=== PATIENT | male | born 1945 | race Caucasian/White ===

== ENCOUNTER → 2023-02-21 18:06 | Outpatient (CLI) | payer MEDICARE, SELFPAY ==
[2023-02-21 18:42] LABS: Basophils % 0.4 % (0.1-2.0); Eosinophils # 0.1 K/mm3 (0.0-0.4); Eosinophils % 1.8 % (0.1-12.0); Hematocrit 47.3 % (42.0-52.0); Hemoglobin 17.2 g/dL (14.1-18.0); Lymphocytes # 1.5 K/mm3 (0.7-4.5); Lymphocytes % 24.1 % (10-50); Mean Corpuscular HGB Conc 36.4 g/dL (31.8-35.4); Mean Corpuscular Hemoglobin 33.2 pg (27.0-31.2); Mean Corpuscular Volume 91.1 fl (80-94); Mean Platelet Volume 10.4 fl (7.4-10.4); Monocytes # 0.4 K/mm3 (0.1-1.0); Monocytes % 6.8 % (1.7-9.3); Neutrophils # 4.3 K/mm3 (1.8-7.8); Neutrophils % 66.8 % (37.0-80.0); Platelet Count 187 K/mm3 (142-424); Red Blood Count 5.19 M/mm3 (4.60-6.20); Red Cell Distribution Width 14.2 % (11.5-17.5); White Blood Count 6.4 K/mm3 (4.8-10.8)
[2023-02-21 19:15] LABS: Alanine Aminotransferase 35 U/L (12-78); Albumin Level 4.3 g/dl (3.5-5.0); Albumin/Globulin Ratio 1.5 (1.1-1.8); Alkaline Phosphatase 133 U/L (38-126); Anion Gap 10.1 mEq/L (5-15); Aspartate Amino Transferase 39 U/L (17-59); Blood Urea Nitrogen 23 mg/dl (9-20); Calcium 8.9 mg/dl (8.4-10.2); Carbon Dioxide 25 mmol/L (22.0-30.0); Chloride 108 mmol/L (98-107); Chol/HDL Ratio 4.6 (1-3.5); Cholesterol 167 mg/dl (140-200); Estimated Glomerular Filt Rate 46 ml/min (>60); GFR (African American) 55 ML/MIN (>60); Globulin 2.9 g/dL (1.3-3.2); Glucose 109 mg/dl (74-100); HDL Cholesterol 36 mg/dl (40-60); Potassium 4.1 mmoL/L (3.5-5.1); Sodium 139 mmol/L (136-145); Total Protein,Serum 7.2 g/dl (6.3-8.2); Triglycerides 133 mg/dl (30-150); VLDL Cholesterol 27 mg/dL (0-40)
[2023-02-21 19:24] LABS: NT Pro Brain Natriuretic Pep. 542 pg/mL (0-450)
[2023-02-21 19:27] LABS: Direct LDL Cholesterol 114.23 mg/dL (100-129)
== END ==
PROVIDERS: PCP Nurse Practitioner Family; Visit Provider Nurse Practitioner Family
DX: E78.5 Hyperlipidemia, unspecified (principal); R06.02 Shortness of breath
CPT/HCPCS: 80053; 80061; 83880; 85025

== ENCOUNTER → 2023-04-24 16:55 | Outpatient (CLI) | payer MEDICARE, SELFPAY ==
[2023-04-24 16:36] LABS: Anion Gap 16.8 mEq/L (5-15); Blood Urea Nitrogen 33 mg/dl (9-20); Calcium 9.2 mg/dl (8.4-10.2); Carbon Dioxide 25 mmol/L (22.0-30.0); Chloride 106 mmol/L (98-107); Chol/HDL Ratio 4.2 (1-3.5); Cholesterol 142 mg/dl (140-200); Estimated Glomerular Filt Rate 46 ml/min (>60); GFR (African American) 55 ML/MIN (>60); Glucose 118 mg/dl (74-100); HDL Cholesterol 34 mg/dl (40-60); Potassium 4.8 mmoL/L (3.5-5.1); Sodium 143 mmol/L (136-145); Triglycerides 177 mg/dl (30-150); VLDL Cholesterol 35 mg/dL (0-40)
[2023-04-24 16:46] LABS: Direct LDL Cholesterol 80.59 mg/dL (100-129)
== END ==
PROVIDERS: PCP Nurse Practitioner Family; Visit Provider Nurse Practitioner Family
DX: E78.5 Hyperlipidemia, unspecified (principal)
CPT/HCPCS: 80048; 80061

== ENCOUNTER → 2023-05-28 11:00 | Outpatient (CLI) | payer MEDICARE, SELFPAY ==
[2023-05-28 17:28] LABS: Alanine Aminotransferase 54 U/L (12-78); Albumin Level 4.2 g/dl (3.5-5.0); Albumin/Globulin Ratio 1.4 (1.1-1.8); Alkaline Phosphatase 118 U/L (38-126); Anion Gap 13.9 mEq/L (5-15); Aspartate Amino Transferase 42 U/L (17-59); Blood Urea Nitrogen 33 mg/dl (9-20); Calcium 9.3 mg/dl (8.4-10.2); Carbon Dioxide 24 mmol/L (22.0-30.0); Chloride 104 mmol/L (98-107); Estimated Glomerular Filt Rate 42 ml/min (>60); GFR (African American) 51 ML/MIN (>60); Globulin 2.9 g/dL (1.3-3.2); Glucose 112 mg/dl (74-100); Potassium 4.9 mmoL/L (3.5-5.1); Sodium 137 mmol/L (136-145); Total Protein,Serum 7.1 g/dl (6.3-8.2); Uric Acid 7.5 mg/dl (3.5-8.5)
== END ==
PROVIDERS: PCP Nurse Practitioner Family; Visit Provider Nurse Practitioner Family
DX: M10.9 Gout, unspecified (principal)
CPT/HCPCS: 80053; 84550

== ENCOUNTER → 2023-07-19 23:55 | Outpatient (CLI) | payer MEDICARE, SELFPAY ==
[2023-07-19 17:22] LABS: Basophils % 0.6 % (0.1-2.0); Eosinophils # 0.4 K/mm3 (0.0-0.4); Eosinophils % 9.2 % (0.1-12.0); Hematocrit 45.9 % (42.0-52.0); Hemoglobin 14.1 g/dL (14.1-18.0); Lymphocytes # 0.8 K/mm3 (0.7-4.5); Lymphocytes % 17.9 % (10-50); Mean Corpuscular HGB Conc 30.7 g/dL (31.8-35.4); Mean Corpuscular Hemoglobin 28.7 pg (27.0-31.2); Mean Corpuscular Volume 93.5 fl (80-94); Mean Platelet Volume 8.4 fl (7.4-10.4); Monocytes # 0.3 K/mm3 (0.1-1.0); Monocytes % 6.4 % (1.7-9.3); Neutrophils % 65.9 % (37.0-80.0); Platelet Count 301 K/mm3 (142-424); Red Blood Count 4.91 M/mm3 (4.60-6.20); Red Cell Distribution Width 15.1 % (11.5-17.5); White Blood Count 4.6 K/mm3 (4.8-10.8)
[2023-07-19 17:29] LABS: Alanine Aminotransferase 38 U/L (12-78); Albumin Level 3.8 g/dl (3.5-5.0); Albumin/Globulin Ratio 0.8 (1.1-1.8); Alkaline Phosphatase 127 U/L (38-126); Anion Gap 17.3 mEq/L (5-15); Aspartate Amino Transferase 53 U/L (17-59); Bilirubin,Total 0.8 mg/dl (0.2-1.3); Blood Urea Nitrogen 18 mg/dl (9-20); Calcium 8.6 mg/dl (8.4-10.2); Carbon Dioxide 24 mmol/L (22.0-30.0); Chloride 104 mmol/L (98-107); Estimated Glomerular Filt Rate 54 ml/min (>60); GFR (African American) 65 ML/MIN (>60); Globulin 4.7 g/dL (1.3-3.2); Glucose 100 mg/dl (74-100); Potassium 4.3 mmoL/L (3.5-5.1); Sodium 141 mmol/L (136-145); Total Protein,Serum 8.5 g/dl (6.3-8.2)
[2023-07-19 18:36] LABS: Vitamin B12 435 pg/mL (239-931)
== END ==
PROVIDERS: PCP Nurse Practitioner Family; Visit Provider Nurse Practitioner Family
DX: R20.0 Anesthesia of skin (principal); R42 Dizziness and giddiness; Z68.28 Body mass index [BMI] 28.0-28.9, adult
CPT/HCPCS: 80053; 82607; 82746; 85025

== ENCOUNTER → 2023-07-30 15:01 | Outpatient (CLI) | payer MEDICARE, SELFPAY | PROVIDERS: PCP Nurse Practitioner Family; Visit Provider Nurse Practitioner Family | DX: M54.50 Low back pain, unspecified (principal) ==

== ENCOUNTER → 2023-08-10 10:10 | Outpatient (CLI) | payer MEDICARE, SELFPAY | PROVIDERS: PCP Nurse Practitioner Family; Visit Provider Nurse Practitioner Family | DX: M54.50 Low back pain, unspecified (principal) ==

== ENCOUNTER → 2023-08-24 07:42 | Outpatient (CLI) | payer MEDICARE, SELFPAY ==
--- NOTE | 2023-08-24 07:43 | MR_ITS ---
PROCEDURE INFORMATION: Exam: MR Lumbar Spine Without Contrast Exam date and time: 08/24/2023 8:07 AM Age: 78 years old Clinical indication: Low back pain; Additional info: Left leg numbness, ddd TECHNIQUE: Imaging protocol: Magnetic resonance imaging of the lumbar spine without contrast. COMPARISON: No relevant prior studies available. FINDINGS: Bones/joints: There is multilevel disc desiccation. The disc spaces are otherwise maintained. No fracture. Normal alignment. Spinal cord: Visualized cord, conus medullaris and cauda equina are unremarkable without compression. L1-L2: No significant disc bulge or herniation. No severe spinal canal stenosis. No significant neural foraminal narrowing. L2-L3: There is minimal diffuse disc bulging without significant spinal canal or neural foraminal stenosis. L3-L4: There is severe spinal canal stenosis secondary to mild to moderate diffuse disc osteophyte bulging and ligamentum flavum/facet hypertrophy. There is mild right and [id number] left neural foraminal stenosis secondary to foraminal disc osteophyte bulging and facet hypertrophy. L4-L5: There is [id number]-[id number] spinal canal stenosis secondary to a small broad-based central disc protrusion and ligamentum flavum hypertrophy. The right neural foramen appears patent. There is mild left neural foraminal stenosis secondary to foraminal disc osteophyte bulging and facet hypertrophy. L5-S1: There is a small broad-based central disc protrusion without significant spinal canal stenosis. The neural foramina appear patent. Soft tissues: Unremarkable. IMPRESSION: 1. Severe spinal canal stenosis at L3-L4. 2. Please see above for specific findings at each level.
== END ==
PROVIDERS: PCP Nurse Practitioner Family; Visit Provider Nurse Practitioner Family
DX: R29.898 Other symptoms and signs involving the musculoskeletal system (principal); M54.50 Low back pain, unspecified; M79.605 Pain in left leg; M51.16 Intervertebral disc disorders with radiculopathy, lumbar region
CPT/HCPCS: 72148; 76376

== ENCOUNTER → 2023-09-26 23:31 | Outpatient (CLI) | payer MEDICARE, SELFPAY ==
[2023-09-26 17:48] LABS: Chloride 108 mmol/L (98-107); Potassium 4.2 mmoL/L (3.5-5.1); Sodium 140 mmol/L (136-145)
[2023-09-26 17:51] LABS: Alanine Aminotransferase 26 U/L (12-78); Albumin Level 4.3 g/dl (3.5-5.0); Albumin/Globulin Ratio 1.3 (1.1-1.8); Alkaline Phosphatase 110 U/L (38-126); Anion Gap 14.2 mEq/L (5-15); Aspartate Amino Transferase 27 U/L (17-59); Bilirubin,Total 0.9 mg/dl (0.2-1.3); Blood Urea Nitrogen 22 mg/dl (9-20); Calcium 9.3 mg/dl (8.4-10.2); Carbon Dioxide 22 mmol/L (22.0-30.0); Estimated Glomerular Filt Rate 54 ml/min (>60); GFR (African American) 65 ML/MIN (>60); Globulin 3.4 g/dL (1.3-3.2); Glucose 122 mg/dl (74-100); Total Protein,Serum 7.7 g/dl (6.3-8.2)
[2023-09-27 10:36] LABS: Thyroid Stimulating Hormone 1.53 uIU/mL (0.465-4.68)
[2023-09-27 12:51] LABS: Hemoglobin A1C 5.6 % (4.0-6.0)
== END ==
PROVIDERS: Nurse Practitioner Family; PCP Nurse Practitioner Family; Visit Provider Nurse Practitioner Family
DX: N18.9 Chronic kidney disease, unspecified (principal); E78.5 Hyperlipidemia, unspecified; R73.9 Hyperglycemia, unspecified; R20.0 Anesthesia of skin; R20.2 Paresthesia of skin; R53.1 Weakness; M48.061 Spinal stenosis, lumbar region without neurogenic claudication; M54.50 Low back pain, unspecified; G89.29 Other chronic pain
CPT/HCPCS: 80053; 83036; 84443

== ENCOUNTER → 2023-09-30 16:00 | Outpatient (CLI) | payer MEDICARE, SELFPAY ==
[2023-09-30 17:10] LABS: Anion Gap 16.8 mEq/L (5-15); Blood Urea Nitrogen 20 mg/dl (9-20); Calcium 9.3 mg/dl (8.4-10.2); Carbon Dioxide 19 mmol/L (22.0-30.0); Chloride 103 mmol/L (98-107); Estimated Glomerular Filt Rate 45 ml/min (>60); GFR (African American) 55 ML/MIN (>60); Glucose 137 mg/dl (74-100); Potassium 4.8 mmoL/L (3.5-5.1); Sodium 134 mmol/L (136-145)
[2023-09-30 17:15] LABS: Basophils % 0.2 % (0.1-2.0); Eosinophils % 0.2 % (0.1-12.0); Hematocrit 47.4 % (42.0-52.0); Hemoglobin 15.6 g/dL (14.1-18.0); Lymphocytes # 0.8 K/mm3 (0.7-4.5); Lymphocytes % 5.7 % (10-50); Mean Corpuscular HGB Conc 32.9 g/dL (31.8-35.4); Mean Corpuscular Hemoglobin 28.9 pg (27.0-31.2); Mean Corpuscular Volume 87.7 fl (80-94); Mean Platelet Volume 10.4 fl (7.4-10.4); Monocytes # 0.7 K/mm3 (0.1-1.0); Monocytes % 5.4 % (1.7-9.3); Neutrophils # 11.4 K/mm3 (1.8-7.8); Neutrophils % 88.5 % (37.0-80.0); Platelet Count 253 K/mm3 (142-424); Red Cell Distribution Width 16.2 % (11.5-17.5); White Blood Count 12.9 K/mm3 (4.8-10.8)
[2023-09-30 17:21] LABS: MANUAL DIFFERENTIAL MANUAL DIFFERENTIAL (MANUAL DIFF)
[2023-09-30 17:41] LABS: Eosinophils % 1 % (0-3); Lymphocytes % 15 % (10-50); Monocytes % 1 % (2-9); Neutrophils % 83 % (42-76); Platelet Estimate Normal; RBC Morphology Normal; Total Cells Counted 100
== END ==
PROVIDERS: PCP Nurse Practitioner Family; Visit Provider Nurse Practitioner Family
DX: R11.10 Vomiting, unspecified (principal)
CPT/HCPCS: 80048; 85007; 85025

== ENCOUNTER → 2023-10-07 13:01 | Outpatient (POV) | payer MEDICARE, SELFPAY ==
--- NOTE | 2023-10-07 13:44 | EXP.PAIN.OV ---
HPI Data of Consult Patient: new to practice Consult date: 10/07/23 Requesting Physician: Deb Do APRN Primary Care Provider: Robinson Manley MD Consult Narrative Reason for consult: Low back pain, left leg pain History of present illness: Mr. Terrell is a 78 year old male who presents today as a new patient. He is a referral from Bettina Reis's office. Patient rates his pain a 5 out of 10 and states his pain is all in his low back with radiating symptoms into his entire left leg. Patient states this is been going on for approximately 10 years following a back surgery that he had and continued to have pain with numbness and weakness into his left leg. Patient states his low back pain was going on even longer prior to that. Patient does state the pain is worse with standing or walking and that he frequently has to stop and take multiple breaks. Patient denies any previous physical therapy or chiropractor therapy. Patient has never had any injections in his back. Patient states he has tried ibuprofen and Tylenol with no additional relief. Patient does have a history of gout as well as A-fib and takes Xarelto daily. Patient states he is not very big on needles. His Troy has been reviewed and is appropriate. CC: Deb Do APRN [facility] Disclaimer: The information contained in this section may have been updated after the patient was seen, as this information can be updated by other users. Medical History Afib GERD (gastroesophageal reflux disease) Gout Hyperlipidemia Surgical History H/O shoulder surgery History of appendectomy History of cholecystectomy History of lumbar surgery Previous back surgery Family History Father Stroke Social History Smoking Status: Former smoker years smoked: 12 alcohol intake: current substance use type: denies use current occupational status: retired Travel in the last 8 weeks: None household members: none housing: house Review of Systems Review of Systems Review of systems:: pertinent systems reviewed and negative unless documented below Review of systems (narrative): Review of Systems: General: No recent weight changes, no fever, no sleep disturbances Respiratory: No cough, no shortness of air, no recurring pulmonary infections Cardiovascular/peripheral vascular: No chest pain, no palpitations, no edema, no shortness of breath Gastrointestinal: No new onset incontinence, normal bowel movements reported Genitourinary: No new onset incontinence Musculoskeletal: Low back pain, left leg pain Psychiatric: [Normal mood/affect] Neurological: [Denies weakness in extremities], [denies balance issues] Meds Home Medications and Allergies Home Medications Medication Instructions Recorded Confirmed Type omeprazole 20 mg capsule,delayed 20 mg PO DAILY 01/29/23 09/30/23 History release rivaroxaban 20 mg tablet (Xarelto) 20 mg PO DAILY 01/29/23 09/30/23 History pitavastatin calcium 4 mg tablet 4 mg PO DAILY 30 days #24 tabs 07/19/23 09/30/23 Rx (Livalo) probenecid 500 mg tablet 250 mg PO DAILY gout 09/26/23 09/30/23 History sulfamethoxazole 800 1 tab PO BID 10 days #20 tabs 09/27/23 09/30/23 Rx mg-trimethoprim 160 mg tablet (Bactrim DS) ondansetron 4 mg disintegrating 4 mg PO Q8H PRN nausea and 09/30/23 09/30/23 Rx tablet vomiting #20 tabs New Prescriptions to Start Prescriptions: Allergies Allergy/AdvReac Type Severity Reaction Status Date / Time codeine Allergy Rash Verified 09/30/23 09:25 Objective Narrative: Physical Exam: General: Alert and oriented x3, no acute distress, pleasant and cooperative Lungs: Respirations even and unlabored, symmetrical chest expansion Eyes: PERRL Musculoskeletal: Flexion and extension
[2023-10-07 15:45] VITALS: BP 134/85; PULSE 64; RESP 18; O2SAT 96; BMI 27.9
== END ==
PROVIDERS: PCP Family Medicine; Visit Provider Nurse Practitioner Family
DX: M48.062 Spinal stenosis, lumbar region with neurogenic claudication; M54.50 Low back pain, unspecified; M24.28 Disorder of ligament, vertebrae; G89.4 Chronic pain syndrome; M51.16 Intervertebral disc disorders with radiculopathy, lumbar region
CPT/HCPCS: 99202; G0463

== ENCOUNTER → 2023-11-18 10:19 | Outpatient (POV) | payer MEDICARE, SELFPAY ==
[2023-11-18 11:56] VITALS: BP 148/96; PULSE 84; RESP 18; O2SAT 97; BMI 28.5
--- NOTE | 2023-11-18 12:02 | A.OFFVIS_ITS ---
[facility] Pain Management SOAP Note Subjective:: Patient is a pleasant 78-year-old male who presents today for follow-up. We are currently treating the patient for degenerative disc disease of lumbar spine with lumbar radiculopathy symptoms, lumbar spinal stenosis, ligamentum flavum hypertrophy, chronic pain syndrome. Today he rates his pain a 0 out of 10. Patient states that overall he does really well and that the compounded cream that was prescribed to him at has really helped. He states he would like additional refills if possible. Patient does state that he has recently had an EMG test with Dr. Polo approximately 2 weeks ago however he has not gotten the results yet. Patient does state that he is also scheduled to start physical therapy this Saturday. He states that he has also been scheduled to see a neurosurgeon up at [facility] in the upcoming weeks for possible evaluation of surgical intervention. Patient does state overall that his pain is well- controlled and on most days he has no trouble once he is up and going. Patient does state that his pain is most noticeable in the mornings. He states that it is he is unsure if they were recommending surgery if he would want to proceed forward given this information. His Troy has been reviewed and is appropriate. Review of Systems: General: No recent weight changes, no fever, no sleep disturbances Respiratory: No cough, no shortness of air, no recurring pulmonary infections Cardiovascular/peripheral vascular: No chest pain, no palpitations, no edema, no shortness of breath Gastrointestinal: No new onset incontinence, normal bowel movements reported Genitourinary: No new onset incontinence Musculoskeletal: Low back pain Psychiatric: [Normal mood/affect] Neurological: [Denies weakness in extremities], [denies balance issues] Objective:: Physical Exam: General: Alert and oriented x3, no acute distress, pleasant and cooperative Lungs: Respirations even and unlabored, symmetrical chest expansion Eyes: PERRL Musculoskeletal: Flexion and extension of lumbar [spine] somewhat guarded secondary to pain, [antalgic gait noted] Neurological: Speech clear, no gross sensory deficit Assessment:: Degenerative disc disease of lumbar spine with lumbar radiculopathy symptoms, lumbar spinal stenosis, ligamentum flavum hypertrophy, chronic pain syndrome Plan:: Patient is doing well with his current compounded cream. I will send in an order for refills. I have counseled the patient that I will plan on seeing him back in 1 month so we can follow-up regarding physical therapy and his neurosurgeon appointment for reevaluation of symptoms and plan of care. Patient has been instructed to contact the clinic with any concerns before the next appointment. Dr. Jimenes has reviewed this note and agrees with this plan of care. This note was dictated using voice recognition software and make contain errors or omissions. [facility] Disclaimer: The information contained in this section may have been updated after the patient was seen, as this information can be updated by other users. Medical History Afib GERD (gastroesophageal reflux disease) Gout Hyperlipidemia Surgical History H/O shoulder surgery History of appendectomy History of cholecystectomy History of lumbar surgery Previous back surgery Family History Father Stroke Social History Smoking Status: Former smoker years smoked: 12 alcohol intake: current substance use type: denies use current occupational status: retired Travel in the last 8 weeks: None household members: none housing: house
== END ==
LOC: SC.PAIN 10:20
PROVIDERS: Visit Provider Nurse Practitioner Family
DX: M51.16 Intervertebral disc disorders with radiculopathy, lumbar region (principal); M48.061 Spinal stenosis, lumbar region without neurogenic claudication; G89.4 Chronic pain syndrome
CPT/HCPCS: 99212; G0463

== ENCOUNTER 2023-11-20 08:39 | Outpatient (RCR) | payer MEDICARE, SELFPAY ==
--- NOTE | 2023-11-20 09:58 | HMH.PTOPEV ---
PT Outpatient Evaluation Rehab PT Outpatient Evaluation Start: 11/20/23 08:58 Freq: Status: Active Protocol: Document 11/20/23 08:58 PDESEROUX (Rec: 11/20/23 09:58 [email or web address] [id number]) E-signed By Randell Hinkle, PT Outpatient Therapy Subjective History Subjective History Pt. is a 78 year old male who presents to [facility] Outpatient Physical Therapy Services in [place] for the initial evaluation this date(11/20/23) w/ c/o chronic and intermittent lumbar spine and LLE P!, numbness, and weakness of insidious onset for a couple years now. Pt. reports a little numbness and a little weakness is constant, but has an increase in LBP! w/ 5' of standing and w/ ambulation. Pt. reports having complete symptom relief in the lumbar spine within just a few minutes of sitting. Pt. also reports having some symptom relief w/ prescribed cream and Ibuprofen. Recent diagnostic imaging(MRI) positive for narrowing discs per pt. report. Pt. also reports recent NCV positive for weakness in the LLE. Pt. reports he is awaiting a phone call to set up an appointment w/ a Neurosurgeon. Pt. denies having any injections for current pathology at this time. Pt. expressess financial concern w / Physical Therapy co-pay this date, states wanting to hear from Surgeon prior to carrying out POC. Pt. RTMD(referring Physician) in a few weeks. Pt. also reports having balance concerns negotiating uneven terrain or stepping on a walnut w/ the LLE. Current medications include Allopurinol, Xarelto, Omeprazole, Probenecid, and Livalo. PMH includes S/P LUE shldr. sx., S/P lumbar spine surgery to remove osteophytes, Osteoarthritis, Atrial Fibrillation, Cholecystectomy, Appendectomy. New diagnosis of cancer in past 12 No months? Chief Complaint Pain,Gives out/Unstable, Paresthesia,Weakness Symptom Type Ache,Throb,Dull,Numbness, Tingling,Shooting Symptoms Relieved By Rest/Positioning,OTC Meds, Prescription Meds Symptoms Aggravated By Standing,Physical Activity, Walking Prior Functional Limitations None Current Functional Limitations Housework,Standing,Recreation Activity,Walking,Balance Symptom Description Activity Dependent Level of pain today (0-10) 0 Pain scale - at its best (0-10) 0 Pain scale - at its worst (0-10) 6 Lumbopelvic Eval Posture Thoracic Spine Posture Standing Position Neutral Lumbar Spine Posture Standing Position Flattened Assistive device Assistive Devices None / NA Gait Observation General Gait Pattern Observation No Deviations/Normal Palapation tenderness bilateral lumbar spinal tenderness Yes: L4/L5/S1 Lumbar/Sacral Palpation Findings Tenderness Lumbar/Sacral Palpation Overall Comment grade 3 +TTP to TTP assessment above Accessory Movement L-spine Vertebrae Accessory Movements Central P/A [place],Right P/A that Elicit Symptoms [place],Left P/A [place] L4 bilateral L5 bilateral S1 bilateral Range of Motion Lumbar Spine Active Flexion Range of 75 Motion (degrees) Lumbar Spine Active Extension Range of 13 Motion (degrees) Left Lumbar Spine Lateral Flexion Active 13 Range of Motion (degrees) Right Lumbar Spine Lateral Flexion 18 Active Range of Motion (degrees) Lumbar Spine ROM Limitations Soft Tissue Tightness,Pain Manual Muscle Test Left Knee Extension Strength Grade 4- Good- Knee Flexion Strength Grade 4- Good- Hip Flexion Strength Grade 4- Good- Hip Abduction Strength Grade 4- Good- Hip Adduction Strength Grade 4- Good- Hip External Rotation Strength Grade 4 Good Hip Internal Rotation Strength Grade 4 Good Hip Extension Strength Grade 4 Good Gluteus [place] Strength Grade 4 Good Extensor Hallucis Longus Strength Grade 3+ Fair+ Ankle Dorsiflexion Strength Grade 3+ Fair+ Gastronemius/Soleus Strength Grade 4- Good- DTR Rt Patellar 0 Lt Patellar 0 Rt Gastroc/Soleus 0 Lt Gastroc/Soleus 0 Altered Sensation Left LE Dermatome Level L5 Comment decreased light touch sensation in above pattern of LLE compared to RLE Special Tests Lumbar Spine Screen Positive Hip Piriformis Test Negative Left Sciatic Nerve Tension Test Negative Left Unilateral Straight Leg Raise (Lasegue) Negative Left Test Lumbar Long [place] Distraction Test/Manual Positive Traction Outpatient Therapy Assessment Impairments Problems/Impairmments Palpation Tenderness,Impaired Range of Motion,Impaired Strength,Impaired Walking, Impaired Standing,Impaired Shower/Bathing,Impaired Household Care,Impaired Incline Stepping,Impaired Stepping on Uneven Surface, Impaired Recreational Activities,Impaired Work Activities,Impaired Balance, Subjective C/O Pain,Impaired Self Care/Self Management Prognosis Rehab Potential Good Comment w/ HEP compliancy Clinical Impression Consistent with Diagnosis Yes Consistent with lumbar spinal stenosis Short Term Goals Number of Weeks 2 Decreased Palpation Tenderness Yes: grade 1-2 +TTP to TTP assessment above Decrease Subjective C/O Pain Yes: worse:03/20 Patient to be Ind w/ HEP Yes Fdc Goals Number of Weeks 4-6 Decreased Palpation Tenderness Yes: grade 1 +TTP to TTP assessment above Increase Range of Motion Yes: lumbar spine AROM >90% norms grossly Increase Strength Yes: 4+ to 5/5 LLE myotomal muscle strength grossly Increase Ability to Walk Yes Increase Ability to Stand Yes: >5' w/o difficulty Improve Incline Stepping Ability Yes Improve Ability to Step on Uneven Yes Surfaces Improve Oswestry Score Yes Decrease Subjective C/O Pain Yes: worse:-01/18 Improve Self Care/Self Management Yes Patient to be Ind w/ Advanced HEP Yes Outpatient Therapy Plan of Care Treatment Plan May Include Therapeutic Exercise Including Home Yes Exercise Program Manual Therapy Techniques Yes Neuromuscular Re-education Yes Therapeutic Activities to Return to Yes Previous Functional/Work Level Gait Training Yes ADL/Self Care Education Yes Mechanical Traction Yes: precaution d/t phobia Dry Needling Yes Thermal Modalities Yes Electrical Stimulation Yes Ultrasound/Phonophoresis Yes Iontophoresis Yes Vasopneumatic Compression Pump Yes Massage Yes Eval/Re-Eval Yes Frequency Times per week 2 Duration Number of Weeks 4-6 Addendums This patient is a candidate for social No or vocational rehab? Patient/Guardian verbally acknowledges Yes understanding of treatment program and consents to further treatment? Patient/Guardian verbally acknowledges Yes understanding of diagnosis, prognosis and goals for treatment? Eval Complexity PT Charges 68781 - Low Complexity Shoulder/Elbow Eval Shoulder Objective Measurements Elbow Objective Measurements PHYSICIAN CERTIFICATION: I certify the specified therapy services for [place]rell are required, authorized, and reviewed every 30 days.
== END 2023-12-24 13:40 | disposition home or self-care (01) ==
LOC: PT 08:39
PROVIDERS: PCP Nurse Practitioner Family; Visit Provider Nurse Practitioner Family
DX: M48.061 Spinal stenosis, lumbar region without neurogenic claudication (principal); R20.0 Anesthesia of skin; R20.2 Paresthesia of skin
CPT/HCPCS: 97163

== ENCOUNTER 2023-12-09 18:51 | Outpatient (CLI) | payer MEDICARE, SELFPAY ==
[2023-12-09 16:26] LABS: Basophils % 0.4 % (0.1-2.0); Eosinophils % 0.3 % (0.1-12.0); Hematocrit 47.5 % (42.0-52.0); Hemoglobin 16.1 g/dL (14.1-18.0); Lymphocytes # 1.5 K/mm3 (0.7-4.5); Mean Corpuscular HGB Conc 33.9 g/dL (31.8-35.4); Mean Corpuscular Hemoglobin 29.4 pg (27.0-31.2); Mean Corpuscular Volume 86.8 fl (80-94); Mean Platelet Volume 9.2 fl (7.4-10.4); Monocytes # 0.6 K/mm3 (0.1-1.0); Monocytes % 6.5 % (1.7-9.3); Neutrophils # 7.6 K/mm3 (1.8-7.8); Neutrophils % 77.9 % (37.0-80.0); Platelet Count 222 K/mm3 (142-424); Red Blood Count 5.48 M/mm3 (4.60-6.20); Red Cell Distribution Width 15.9 % (11.5-17.5); White Blood Count 9.7 K/mm3 (4.8-10.8)
[2023-12-09 16:51] LABS: Alanine Aminotransferase 19 U/L (12-78); Albumin Level 4.1 g/dl (3.5-5.0); Albumin/Globulin Ratio 1.2 (1.1-1.8); Alkaline Phosphatase 89 U/L (38-126); Anion Gap 14.3 mEq/L (5-15); Aspartate Amino Transferase 24 U/L (17-59); Bilirubin,Total 1.1 mg/dl (0.2-1.3); Blood Urea Nitrogen 18 mg/dl (9-20); Calcium 9.4 mg/dl (8.4-10.2); Carbon Dioxide 27 mmol/L (22.0-30.0); Chloride 104 mmol/L (98-107); Estimated Glomerular Filt Rate 49 ml/min (>60); GFR (African American) 59 ML/MIN (>60); Globulin 3.3 g/dL (1.3-3.2); Glucose 115 mg/dl (74-100); Potassium 4.3 mmoL/L (3.5-5.1); Sodium 141 mmol/L (136-145); Total Protein,Serum 7.4 g/dl (6.3-8.2); Uric Acid 5.4 mg/dl (3.5-8.5)
== END 2023-12-09 23:59 ==
LOC: LAB.DROPOF 18:52
PROVIDERS: PCP Nurse Practitioner Family; Visit Provider Nurse Practitioner Family
DX: M10.9 Gout, unspecified (principal)
CPT/HCPCS: 80053; 84550; 85025

== ENCOUNTER 2024-09-23 18:11 | Observation (INO) | payer MEDICARE, SELFPAY ==
[2024-09-23] VITALS (12 sets, daily range): BP systolic 104–138; BP diastolic 56–91; PULSE 41–74; RESP 16–19; TEMP 36.6–36.9; O2SAT 80–98; BMI 36.7; BMI 30.8
--- NOTE | 2024-09-23 18:28 | ECG_ITS ---
APPROVED REPORT Exam: Resting ECG HR:51 bpm ECG Measurements Heart Rate 51 AXES QRSd 95 QRS -9 QT 442 T 18 QTc 419 Conclusion ATRIAL FIBRILLATION WITH SLOW VENTRICULAR RESPONSE NONSPECIFIC ST & T-WAVE ABNORMALITY ABNORMAL RHYTHM ECG Electronically signed by : AMANDA BENITES, 09/23/2024 23:24:48
[2024-09-23] MEDS: ONDANSETRON 4MG/2ML VIAL 4 MG IV (18:45)
--- NOTE | 2024-09-23 18:47 | CT_ITS ---
PROCEDURE INFORMATION: Exam: CTA Abdomen and Pelvis With Contrast Exam date and time: 09/23/2024 8:11 PM Age: 79 years old Clinical indication: Abdominal pain; Generalized; Additional info: Severe abd pain TECHNIQUE: Imaging protocol: Computed tomographic angiography of the abdomen and pelvis with contrast. Exam focused on the arteries. 3D rendering (Not supervised by radiologist): MIP and/or 3D reconstructed images were created by the technologist. Radiation optimization: All CT scans at this facility use at least one of these dose optimization techniques: automated exposure control; mA and/or kV adjustment per patient size (includes targeted exams where dose is matched to clinical indication); or iterative reconstruction. Contrast material: ISOVUE; Contrast volume: 80 ml; Contrast route: INTRAVENOUS (IV); COMPARISON: CT ANGIO CHEST PE PROTOCOL 09/23/2024 8:11 PM FINDINGS: Aorta: No aortic aneurysm. No aortic dissection. Celiac trunk and mesenteric arteries: No occlusion or significant stenosis. Renal arteries: There is an accessory renal artery bilaterally. Main renal arteries are widely patent. Right iliac arteries: No occlusion or significant stenosis. Left iliac arteries: No occlusion or significant stenosis. Liver: No mass. Gallbladder and biliary ducts: Cholecystectomy Pancreas: Mild fatty atrophy Of the pancreas. Spleen: Unremarkable. No splenomegaly. Adrenal glands: Unremarkable. No mass. Kidneys and ureters: Mild cortical scarring left kidney. There is a gastric polyp or pedunculated masses seen at the antrum region. See axial plane image number 129 of series 3. This measures up to 16 mm in diameter by about 19 mm in length. Stomach and bowel: Diverticulosis without diverticulitis at descending and sigmoid colon. There is fluid and gaseous distension of many jejunal loops without a clearly defined transition point. There is also a small amount of jejunal thickening best seen coronal plane image number 72. Appendix: The appendix is not reliably seen, but there is no pericecal inflammatory finding demonstrated. Intraperitoneal space: Unremarkable. No free air. No significant fluid collection. Lymph nodes: Unremarkable. No enlarged lymph nodes. Urinary bladder: Unremarkable. No mass. Reproductive: Unremarkable as visualized. Bones/joints: Diffuse severe facet hypertrophy is demonstrated throughout the lumbar spine which causes a diffuse narrowing of the bony central canal. There is probably been a previous partial laminectomy at the L3 level vertebral body. Soft tissues: Unremarkable. IMPRESSION: 1. Incidentally noted gastric polyp or pedunculated mass at the antrum of the stomach measuring 16 mm diameter by at least 19 mm in length. Advise gastroenterology consultation. 2. Gaseous and fluid distension of the jejunum. May indicate a partial small bowel obstruction. No free fluid or free gas. Most likely infectious or inflammatory in origin. 3. Chronic scarring left kidney. 4. Normal CT angiogram abdomen and pelvis with the patient's age. 5. Other incidental findings above.
--- NOTE | 2024-09-23 18:47 | CT_ITS ---
PROCEDURE INFORMATION: Exam: CTA Chest With Contrast Exam date and time: 09/23/2024 8:11 PM Age: 79 years old Clinical indication: Pain; Chest pressure; Additional info: Severe abd pain TECHNIQUE: Imaging protocol: Computed tomographic angiography of the chest with contrast. Exam focused on the arteries. 3D rendering (Not supervised by radiologist): MIP and/or 3D reconstructed images were created by the technologist. Radiation optimization: All CT scans at this facility use at least one of these dose optimization techniques: automated exposure control; mA and/or kV adjustment per patient size (includes targeted exams where dose is matched to clinical indication); or iterative reconstruction. Contrast material: ISOVUE; Contrast volume: 80 ml; Contrast route: INTRAVENOUS (IV); COMPARISON: CT ANGIO ABDOMEN PELVIS 09/23/2024 8:11 PM FINDINGS: Pulmonary arteries: No acute pulmonary embolus. Aorta: No aortic dissection Trachea: Mild airways thickening bilaterally. Lungs: Calcified granuloma is present in the right lung at the minor fissure image number 65 of axial series. Additional left upper lobe calcified granuloma also demonstrated. Mild apical emphysema bilaterally. No defined airspace infiltrates otherwise. Pleural spaces: Unremarkable. No pneumothorax. No pleural effusion. Heart: Mild cardiomegaly Coronary arteries: Calcified coronary arteries Lymph nodes: Mild diffuse mediastinal adenopathy without visible axillary adenopathy. Lymph nodes are seen beginning at the level of the aortic arch and extends inferiorly near the level of the diaphragmatic hiatus. The largest mediastinal lymph node measures estimated 17 x 11 mm. Bones/joints: Unremarkable. No acute fracture. Previous right shoulder tendinous repair. Soft tissues: Unremarkable. Other findings: No effusions. IMPRESSION: 1. No aortic dissection or acute pulmonary embolus. 2. Chronic lung disease with mild emphysema. 3. Mediastinal adenopathy may be reactive in nature due to the patient's underlying chronic lung disease. Lymphoproliferative disorder or metastatic disease not entirely excluded. Advise follow-up examination in 3 months.
--- NOTE | 2024-09-23 18:47 | PC.NURSE ---
Warm blanket provided, no needs voiced at this time.
[2024-09-23 18:55] LABS: Albumin Level 4.4 g/dl (3.5-5.0); Chloride 105 mmol/L (98-107); Potassium 3.5 mmoL/L (3.5-5.1); Sodium 139 mmol/L (136-145)
[2024-09-23 18:56] LABS: Basophils # 0.1 K/mm3 (0-0.2); Basophils % 0.8 % (0.1-2.0); Eosinophils # 0.1 K/mm3 (0.0-0.4); Hematocrit 51.3 % (42.0-52.0); Hemoglobin 17.4 g/dL (14.1-18.0); Lymphocytes # 1.8 K/mm3 (0.7-4.5); Mean Corpuscular HGB Conc 33.9 g/dL (31.8-35.4); Mean Corpuscular Hemoglobin 29.5 pg (27.0-31.2); Mean Corpuscular Volume 87.2 fl (80-94); Mean Platelet Volume 8.6 fl (7.4-10.4); Monocytes # 0.6 K/mm3 (0.1-1.0); Monocytes % 6.1 % (1.7-9.3); Neutrophils # 6.9 K/mm3 (1.8-7.8); Neutrophils % 73.2 % (37.0-80.0); Platelet Count 244 K/mm3 (142-424); Red Blood Count 5.88 M/mm3 (4.60-6.20); Red Cell Distribution Width 14.8 % (11.5-17.5); White Blood Count 9.5 K/mm3 (4.8-10.8)
[2024-09-23 18:58] LABS: Alanine Aminotransferase 144 U/L (12-78); Albumin/Globulin Ratio 1.2 (1.1-1.8); Alkaline Phosphatase 151 U/L (38-126); Anion Gap 15.5 mEq/L (5-15); Aspartate Amino Transferase 121 U/L (17-59); Bilirubin,Total 1.2 mg/dl (0.2-1.3); Blood Urea Nitrogen 33 mg/dl (9-20); Carbon Dioxide 22 mmol/L (22.0-30.0); Creatinine Clearance Estimated 54 mL/min (50-200); Estimated Glomerular Filt Rate 37 ml/min (>60); GFR (African American) 44 ML/MIN (>60); Globulin 3.6 g/dL (1.3-3.2); Lipase 310 U/L (23-300)
[2024-09-23 18:59] LABS: Calcium 8.9 mg/dl (8.4-10.2); Glucose 162 mg/dl (74-100)
[2024-09-23] MEDS: MORPHINE 4MG/ML SYRINGE 4 MG IV ×2 (19:00→19:41)
--- NOTE | 2024-09-23 19:14 | ED_ITS ---
Discharge Plan Disposition Patient Disposition: Admitted Condition: Fair Clinical Impressions Clinical Impression: Partial obstruction of small intestine, TUNDE (acute kidney injury), Gastric lesion Discharge ED Provider: Deb Blackburn HPI General Chief Complaint: Chest Pain Stated Complaint: vomiting, ELLIS Time Seen by Provider: 09/23/24 18:26 Mode of Arrival: Wheelchair Source of Information: Patient and Relative Limitations: No Limitations Description of Symptoms (Recalled from ER Triage Doc. by RN): Pt. presents to the ED with complaints of nause, vomiting, and chest pain x 5 days. He states the chest pain is right in the middle and goes up into his esophagus. He has not been able to keep his medication down for 2 days. History of Present Illness HPI narrative: This patient is a 79-year-old male with a history of chronic atrial fibrillation, hypertension, hyperlipidemia, and GERD on Xarelto presenting to the emergency department for evaluation with concern for significant abdominal pain, nausea, and vomiting for about 5 days. He also notes that he has had intermittent chest pain with most recent chest pain yesterday. He is not have any pain at all today. He thinks it may have been related to the vomiting. It is in the middle and goes up to his esophagus. He is not been able to keep his medication down for about 2 days. He denies any fevers or chills. He notes he was having diarrhea, so he took Imodium. His only prior abdominal surgery that he notes is appendectomy and cholecystectomy. No history of bowel obstruction. He notes he is still passing gas but not as much. No urinary symptoms that he notes Related Data Home Medications ?Medication ?Instructions ?Recorded ?Confirmed rivaroxaban 20 mg tablet (Xarelto) 20 mg PO DAILY 01/29/23 09/23/24 probenecid 500 mg tablet 250 mg PO DAILY gout 09/26/23 09/23/24 sour stoddard extract 1,000 mg 1,000 mg PO DIRECTED SUPPLIMENT 11/06/23 09/23/24 capsule (Tart Stoddard Extract) Previous Rx's ?Medication ?Instructions ?Recorded diltiazem HCl 240 mg 240 mg PO DAILY #90 caps 04/10/24 capsule,extended release 24 hr allopurinol 100 mg tablet See Rx Instructions .Route 04/15/24 .COMPLEX #90 tabs omeprazole 20 mg capsule,delayed 20 mg PO DAILY #90 caps 06/15/24 release pitavastatin calcium 4 mg tablet 4 mg PO DAILY #30 tabs 06/15/24 (Livalo) Allergies Allergy/AdvReac Type Severity Reaction Status Date / Time codeine Allergy Rash Verified 09/23/24 18:41 [facility] Disclaimer: The information contained in this section may have been updated after the patient was seen, as this information can be updated by other users. Medical History Brain bleed Seizure Degenerative disc disease, lumbar Lumbar radiculopathy Ligamentum flavum hypertrophy Hyperlipidemia GERD (gastroesophageal reflux disease) Afib Gout Surgical History History of lumbar surgery Previous back surgery H/O shoulder surgery History of cholecystectomy History of appendectomy Family History Stroke Father Social History Smoking Status: Never smoker years smoked: 12 alcohol intake: current alcohol intake frequency: a few times a month substance use type: denies use current occupational status: retired Travel in the last 8 weeks: None household members: none housing: house Other Medical History Have you received the Flu Vaccine for this season: No Have you received the Pneumonia Vaccine: No ROS Obtained: Yes All systems reviewed & no additional complaints except as documented Physical Exam General General appearance: alert and in no apparent distress Head Head exam: atraumatic and normocephalic Eye Eye exam: Present normal appearance, PERRL and EOMI ENT ENT exam: Present normal exam, normal oropharynx, mucous membranes moist and normal external ear exam Neck Neck exam: Present normal inspection, full ROM and trachea midline; Absent tenderness Chest Chest inspection: Present normal inspection and symmetric chest wall rise; Absent tenderness Respiratory Respiratory exam: Present normal lung sounds bilaterally; Absent respiratory distress, wheezes, stridor or accessory muscle use Cardiovascular Cardiovascular exam: Present normal rhythm and bradycardia Abdominal Exam Abdominal exam: Present distention, tenderness (Generalized) and guarding (Umbilical); Absent rebound or rigidity Extremities Exam Extremities exam: Present normal inspection, full ROM and normal capillary refill; Absent tenderness or edema Back Exam Back exam: Present normal inspection and full ROM; Absent tenderness Neurological Exam Neurological exam: Present alert, oriented X3, CN II-XII intact and normal gait; Absent motor sensory deficit Psychiatric Psychiatric exam: Present normal affect and normal mood Skin Skin exam: Present warm and dry HEART Score HEART Score HEART Score assessment performed?: Yes History (anamnesis): Slightly suspicious ECG: Normal Age: >65 years Risk factors: Atherosclerosis history Troponin: </= normal limit HEART Score: 4 Critical Care Critical Care Time Critical Care Time: No Medical Decision Making [place] Inquiry Pt receiving controlled substance: No Vital Signs Vital Signs: 09/23/24 18:33 09/23/24 19:01 09/23/24 19:30 Temperature 98.1 F Temperature Source Oral Pulse Rate 41 L 54 L Pulse Rate [Right Brachial] 58 L Respiratory Rate 18 16 19 Blood Pressure 106/58 L 104/56 L Blood Pressure [Right Arm] 115/66 Blood Pressure Mean 87 Blood Pressure Mean [Right Arm] 82 Blood Pressure Source Blood Pressure Source [Right Arm] Automatic Cuff Blood Pressure Position Blood Pressure Position [Right Arm] Sitting 02 Sat by Pulse Oximetry 96 97 98 Oxygen Delivery Method Room Air Room Air Room Air Oxygen Flow Rate (LPM) 09/23/24 19:48 09/23/24 20:00 09/23/24 20:18 Temperature Temperature Source Pulse Rate 55 L 59 L 62 Pulse Rate [Right Brachial] Respiratory Rate 16 17 Blood Pressure 127/91 H Blood Pressure [Right Arm] Blood Pressure Mean Blood Pressure Mean [Right Arm] Blood Pressure Source Blood Pressure Source [Right Arm] Blood Pressure Position Blood Pressure Position [Right Arm] 02 Sat by Pulse Oximetry 94 L 80 L Oxygen Delivery Method Room Air Room Air Oxygen Flow Rate (LPM) 09/23/24 20:30 09/23/24 21:00 09/23/24 21:30 Temperature Temperature Source Pulse Rate 55 L 60 Pulse Rate [Right Brachial] Respiratory Rate 17 17 19 Blood Pressure 120/66 117/73 109/63 L Blood Pressure [Right Arm] Blood Pressure Mean Blood Pressure Mean [Right Arm] Blood Pressure Source Blood Pressure Source [Right Arm] Blood Pressure Position Blood Pressure Position [Right Arm] 02 Sat by Pulse Oximetry 97 98 Oxygen Delivery Method Nasal Cannula Nasal Cannula Oxygen Flow Rate (LPM) 2 2 09/23/24 22:33 Temperature 97.9 F Temperature Source Oral Pulse Rate 74 Pulse Rate [Right Brachial] Respiratory Rate 18 Blood Pressure 138/74 Blood Pressure [Right Arm] Blood Pressure Mean Blood Pressure Mean [Right Arm] Blood Pressure Source Automatic Cuff Blood Pressure Source [Right Arm] Blood Pressure Position Supine Blood Pressure Position [Right Arm] 02 Sat by Pulse Oximetry Oxygen Delivery Method Room Air Oxygen Flow Rate (LPM) Lab Data Labs: Lab Results 09/23/24 18:36: WBC 9.5, RBC 5.88, Hgb 17.4, Hct 51.3, MCV 87.2, MCH 29.5, MCHC 33.9, RDW 14.8, Plt Count 244, MPV 8.6, Neut % (Auto) 73.2, Lymph % (Auto) 19.0, [place] % (Auto) 6.1, Eos % (Auto) 1.0, Baso % (Auto) 0.8, Neut # (Auto) 6.9, Lymph # (Auto) 1.8, [place] # (Auto) 0.6, Eos # (Auto) 0.1, Baso # (Auto) 0.1, Sodium 139, Potassium 3.5, Chloride 105, Carbon Dioxide 22, Anion Gap 15.5 H, BUN 33 H, Creatinine 1.80 H, Estimated Creat Clear 54, Estimated GFR 37 L, Est GFR ( Amer) 44 L, Glucose 162 H, Calcium 8.9, Total Bilirubin 1.2, AST 121 H, ALT 144 H, Alkaline Phosphatase 151 H, Troponin I < 0.01, Total Protein 8.0, Albumin 4.4, Globulin 3.6 H, Albumin/Globulin Ratio 1.2, Lipase 310 H 09/23/24 19:39: Lactate 1.3, SARS-CoV-2 (PCR) Not detected, HIV 1&2 Antibody Rapid Nonreactive, Influenza A Untype (PCR) Not detected, Influenza Type B (PCR) Not detected 09/23/24 20:05: Urine Color Yellow, Urine Appearance Clear, Urine pH 6.0, Ur Specific [place] >= 1.030, Urine Protein Trace, Urine Glucose (UA) Negative, Urine Ketones Negative, Urine Blood Negative, Urine Nitrate Positive, Urine Bilirubin Negative, Urine Urobilinogen 1.0, Ur Leukocyte Esterase Negative, Urine RBC 3-5, Urine WBC 5-10, Ur Squamous Epith Cells 3-5, Urine Bacteria 3+, Urine Mucus 2+ 09/23/24 18:36 09/23/24 18:36 Response Orders (Tests/Meds): ED MEDICATIONS Generic Name Dose Route Start Last Admin Trade Name Mike PRN Reason Stop Dose Admin Diltiazem HCl 240 mg 09/24/24 09:00 Diltiazem Er 240mg Capsule PO 10/24/24 08:59 DAILY BRENNA Sodium Chloride 1,000 mls @ 100 mls/hr 09/23/24 21:30 09/23/24 21:37 Sod Chlor 0.9% 1000ml Bag IV 10/23/24 21:29 100 mls/hr .Q10H BRENNA Administration Pantoprazole Sodium 40 mg 09/23/24 22:55 Pantoprazole 40mg Vial IV 10/23/24 22:54 HS BRENNA Sodium Chloride 8 ml 09/23/24 18:47 Sodium Chloride 0.9% 10ml Vial IV 10/23/24 18:46 NEEDED PRN dilute pepcid Sodium Chloride 10 ml 09/23/24 20:17 09/23/24 20:18 Sodium Chloride 0.9% 10ml Syr (Rad Only) IV 10/23/24 20:16 10 ml NEEDED PRN Administration Maintain IV Site Sodium Chloride 10 ml 09/23/24 22:55 Sodium Chloride 0.9% 10ml Vial IV 10/23/24 22:54 NEEDED PRN dilute protonix Discontinued Medications Generic Name Dose Route Start Last Admin Trade Name Mike PRN Reason Stop Dose Admin Famotidine 20 mg 09/23/24 18:47 09/23/24 19:31 Famotidine 20mg/2ml Vial IV 09/23/24 18:48 20 mg ONCE ONE Administration Sodium Chloride 1,000 mls @ 999 mls/hr 09/23/24 19:19 09/23/24 19:27 Sod Chlor 0.9% 1000ml Bag IV 09/23/24 20:19 999 mls/hr .Q1H1M ONE Administration Iopamidol 80 ml 09/23/24 20:17 09/23/24 20:20 Iopamidol-370 (76%);100ml Bottle IV 09/23/24 20:18 80 ml ONCE ONE Administration Morphine Sulfate 4 mg 09/23/24 18:47 09/23/24 19:00 Morphine 4mg/Ml Syringe IV 09/23/24 18:48 4 mg ONCE ONE Administration Morphine Sulfate 4 mg 09/23/24 19:33 09/23/24 19:41 Morphine 4mg/Ml Syringe IV 09/23/24 19:34 4 mg ONCE ONE Administration Ondansetron HCl 4 mg 09/23/24 18:41 09/23/24 18:45 Ondansetron 4mg/2ml Vial IV 09/23/24 18:42 4 mg ONCE ONE Administration Sodium Chloride 50 ml 09/23/24 20:17 09/23/24 20:20 0.9 % Sodium Chloride 50 Ml Vial IV 09/23/24 20:18 50 ml ONCE ONE Administration ORDERS Category Date Time Status CT angio abdomen pelvis Stat Cat Scan 09/23/24 18:47 Completed CTA Chest [CT angio chest PE protocol] Stat Cat Scan 09/23/24 18:47 Completed Surgery Consult (on-call) [Consult to On-Call Gen'l Cons 09/24/24 07:05 Ordered Surgeon] [CONS] Routine Complete Blood Count Auto Diff AMLAB Lab 09/24/24 06:00 Ordered Complete Blood Count Auto Diff Stat Lab 09/23/24 18:36 Completed Comprehensive Metabolic Panel AMLAB Lab 09/24/24 06:00 Ordered Comprehensive Metabolic Panel Stat Lab 09/23/24 18:36 Completed HIV (1&2) Antibody Rapid Stat Lab 09/23/24 19:39 Completed Hep C Ab with Reflex to RNA Stat Lab 09/23/24 19:39 Received Lactic Acid Stat Lab 09/23/24 19:39 Completed Lipase Stat Lab 09/23/24 18:36 Completed Magnesium AMLAB Lab 09/24/24 06:00 Ordered Phosphorous AMLAB Lab 09/24/24 06:00 Ordered Prothrombin Time INR AMLAB Lab 09/24/24 06:00 Ordered Rapid PCR Covid and Flu A/B Stat Lab 09/23/24 19:39 Completed Trop I [Troponin I] Stat Lab 09/23/24 18:36 Completed Troponin I Q3H Lab 09/23/24 22:00 Completed Troponin I Q3H Lab 09/24/24 00:45 Ordered UA [Urinalysis and Microscopic] Stat Lab 09/23/24 20:05 Completed Urine Culture Stat Micro 09/23/24 20:05 Received ECG Data Tracing #1: Attestation: I reviewed this ECG and interpreted as documented below: ECG Narrative: Atrial fibrillation with a ventricular to [address] changes concerning for ischemia. ECG initial impression date: 11/13/24 ECG initial impression time: 18:29 MDM Narrative Medical Decision Narrative: In summary, this patient is a 79-year-old male presenting to the Emergency Department for evaluation of generalized abdominal pain, nausea, vomiting, diarrhea. Differential diagnoses considered include but are not limited to ischemic colitis, infectious colitis, gastroenteritis, bowel obstruction, pyelonephritis. Ruling out the most morbid conditions drove assessment. It should be noted patient's history includes hypertension, hyperlipidemia, GERD, atrial fibrillation which may or may not be at goal therapy. This complicates all aspects of care by increasing patient's risk for morbidity. I reviewed patient's past medical records and noted previous evaluations by PCP for hypertension. On exam, the patient is lying in bed. He is uncomfortable. Requesting pain medication. He has generalized abdominal tenderness. No rebound or rigidity. Workup included CBC, CMP, lipase, lactic acid, urinalysis, troponin, CTA chest, abdomen, pelvis. I independently interpreted CT scan prior to the radiologist read and noted concerns for partial small bowel obstruction. Please see their read for final interpretation. Labs were obtained that demonstrated no significant leukocytosis, negative lactic acid. Patient does have an TUNDE and as well as a transaminitis. Lipase is very mildly elevated. He was given a liter bolus of IV fluids On reassessment, patient had minimal improvement after administration of interventions above. He was given another dose of IV morphine with good improvement. At this time, patient was deemed to be appropriate for admission for partial small bowel obstruction. I had an interactive discussion with the hospitalist who admitted the patient in stable condition.
[2024-09-23] MEDS: 0.9 % SODIUM CHLORIDE 1000ML 1,000 ML 999 ML IV (19:27)
[2024-09-23] MEDS: FAMOTIDINE 20MG/2ML VIAL 20 MG IV (19:31)
[2024-09-23 19:42] LABS: Troponin I < 0.01 ng/ml (0.00-0.034)
[2024-09-23 19:46] LABS: Coronavirus 19, PCR Not Detected (NotDetected); Influenza A, PCR Not Detected (NotDetected); Influenza B, PCR Not Detected (NotDetected)
[2024-09-23 20:06] LABS: Lactic Acid 1.3 mmol/L (0.7-2.1)
--- NOTE | 2024-09-23 20:07 | PC.NURSE ---
Patient to CT
[2024-09-23 20:08] LABS: Microscopic, Urine URINE MICROSCOPIC (MICROSCOPIC)
[2024-09-23 20:12] LABS: Appearance,Urine CLEAR (Clear); Blood, Urine Negative (Negative); Color,Urine YELLOW (Yellow); Glucose,Urine (UA) Negative (Negative); Ketones,Urine Negative (Negative); Leukocyte Esterase,Urine Negative (Negative); Nitrate,Urine POSITIVE (Negative); Protein,Urine TRACE (Negative); Specific Gravity, Urine >= 1.030 (1.005-1.030)
--- NOTE | 2024-09-23 20:17 | PC.NURSE ---
Patient back from CT
[2024-09-23] MEDS: SODIUM CHLORIDE 0.9% 10ML SYR (RAD ONLY) 10 ML IV (20:18)
[2024-09-23] MEDS: 0.9 % SODIUM CHLORIDE 50 ML VIAL IV (20:20)
[2024-09-23] MEDS: IOPAMIDOL-370 (76%);100ML BOTTLE 80 ML IV (20:20)
[2024-09-23 20:32] LABS: Bilirubin,Urine Negative (Negative)
[2024-09-23 20:33] LABS: Bacteria,Urine 3+ /lpf; Mucus,Urine 2+ /lpf
--- NOTE | 2024-09-23 20:42 | PC.NURSE ---
Pt o2 sat has decreased to 80% while asleep. He awakes easily but sat only improved to 86% while awake and deep breathing. Placed pt on 2lpm nc.
[2024-09-23 20:51] LABS: HIV (1&2) Antibody Rapid NONREACTIVE (NONREACTIVE)
--- NOTE | 2024-09-23 21:33 | P.HP_ITS ---
History of Present Illness *Admission Date: 09/23/24 *Reason for visit:: Nausea and vomiting *History of present illness: Mr. Terrell is a 79-year-old male who presented to the ER with complaint of chest pain and burning, vomiting, nausea and decreased stool output for the past 5 days. Initially was having loose watery stools and took Imodium 2 days ago. Has not had bowel movement since. Minimal flatus since. Has increased distention of his abdomen with increased nausea and vomiting. Denies any blood in his vomit or stool. Patient has a history of chronic atrial fibrillation, hypertension, hyperlipidemia, and GERD on Xarelto. He was doing well until a few days ago when he developed nausea, vomiting, chest discomfort from vomiting, and was having diarrhea. Took an Imodium because of his watery diarrhea. Fortunately has had no further stools. Increased abdominal pain and distention. Has missed his meds intermittently over the past few days. Imaging obtained in the ER concerning for partial bowel obstruction. Also found to have TUNDE with elevation in creatinine to 1.8. Medicine consulted for admission On evaluation, patient stable on room air. Denying any active nausea. Has had flatus in the past 24 hours but no bowel movement in 2 days. 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 Denies pain worse with exertion, chest pain substernal worse after vomiting. Reports history of appendectomy and cholecystectomy. No previous history of bowel obstructions. No known sick contacts with similar symptoms. Afebrile. [facility] Disclaimer: The information contained in this section may have been updated after the patient was seen, as this information can be updated by other users. Medical History (Updated 09/24/24 @ 01:54 by Yemi Campos MD) Brain bleed Seizure Degenerative disc disease, lumbar Lumbar radiculopathy Ligamentum flavum hypertrophy Hyperlipidemia GERD (gastroesophageal reflux disease) Afib Gout Surgical History History of lumbar surgery Previous back surgery H/O shoulder surgery History of cholecystectomy History of appendectomy Family History Stroke Father Social History (Updated 09/23/24 @ 23:37 by Becky Quiroz RN) Smoking Status: Former smoker years smoked: 12 alcohol intake: current alcohol intake frequency: a few times a month substance use type: denies use current occupational status: retired Travel in the last 8 weeks: None household members: none housing: house Other Medical History Have you received the Flu Vaccine for this season: No Have you received the Pneumonia Vaccine: No Review of Systems Review of Systems Review of systems (narrative): 14 point review of systems performed, pertinent positives and negatives as per [facility] Meds Home Medications and Allergies Home Medications ?Medication ?Instructions ?Recorded ?Confirmed ?Type rivaroxaban 20 mg tablet (Xarelto) 20 mg PO DAILY 01/29/23 09/23/24 History probenecid 500 mg tablet 250 mg PO DAILY gout 09/26/23 09/23/24 History sour stoddard extract 1,000 mg 1,000 mg PO DIRECTED SUPPLIMENT 11/06/2309/23 History capsule (Tart Stoddard Extract) diltiazem HCl 240 mg 240 mg PO DAILY #90 caps 04/10/24 09/23/24 Rx capsule,extended release 24 hr allopurinol 100 mg tablet See Rx Instructions .Route 04/15/24 09/23/24 Rx .COMPLEX #90 tabs omeprazole 20 mg capsule,delayed 20 mg PO DAILY #90 caps 06/15/24 09/23/24 Rx release pitavastatin calcium 4 mg tablet 4 mg PO DAILY #30 tabs 06/15/24 09/23/24 Rx (Livalo) New Prescriptions to Start Prescriptions: Allergies Allergy/AdvReac Type Severity Reaction Status Date / Time codeine Allergy Rash Verified 09/23/24 18:41 Exam Data for Last 24 hours Vital signs and Labs for Last 24 Hours: Temp Pulse Resp BP Pulse Ox O2 Del Method O2 Flow Rate 98.1 F 60 17 117/73 98 Nasal Cannula 2 09/23/24 18:33 09/23/24 21:00 09/23/24 21:00 09/23/24 21:00 09/23/24 21:00 09/23/24 21:00 09/23/24 21:00 Laboratory Results - last 24 hr 09/23/24 18:36: WBC 9.5, RBC 5.88, Hgb 17.4, Hct 51.3, MCV 87.2, MCH 29.5, MCHC 33.9, RDW 14.8, Plt Count 244, MPV 8.6, Neut % (Auto) 73.2, Lymph % (Auto) 19.0, [place] % (Auto) 6.1, Eos % (Auto) 1.0, Baso % (Auto) 0.8, Neut # (Auto) 6.9, Lymph # (Auto) 1.8, [place] # (Auto) 0.6, Eos # (Auto) 0.1, Baso # (Auto) 0.1, Sodium 139, Potassium 3.5, Chloride 105, Carbon Dioxide 22, Anion Gap 15.5 H, BUN 33 H, Creatinine 1.80 H, Estimated Creat Clear 54, Estimated GFR 37 L, Est GFR ( Amer) 44 L, Glucose 162 H, Calcium 8.9, Total Bilirubin 1.2, AST 121 H, ALT 144 H, Alkaline Phosphatase 151 H, Troponin I < 0.01, Total Protein 8.0, Albumin 4.4, Globulin 3.6 H, Albumin/Globulin Ratio 1.2, Lipase 310 H 09/23/24 19:39: Lactate 1.3, SARS-CoV-2 (PCR) Not detected, HIV 1&2 Antibody Rapid Nonreactive, Influenza A Untype (PCR) Not detected, Influenza Type B (PCR) Not detected 09/23/24 20:05: Urine Color Yellow, Urine Appearance Clear, Urine pH 6.0, Ur Specific [place] >= 1.030, Urine Protein Trace, Urine Glucose (UA) Negative, Urine Ketones Negative, Urine Blood Negative, Urine Nitrate Positive, Urine Bilirubin Negative, Urine Urobilinogen 1.0, Ur Leukocyte Esterase Negative, Urine RBC 3-5, Urine WBC 5-10, Ur Squamous Epith Cells 3-5, Urine Bacteria 3+, Urine Mucus 2+ I & O for Last 24 hours: Intake & Output 09/20/24 09/21/24 09/22/24 09/23/24 23:59 23:59 23:59 23:59 Weight 112.945 kg Constitutional Constitutional: no acute distress, obese, chronically ill appearing and cooperative *Routine HEENT Exam Head: Present normocephalic Eye: Present EOMI and PERRL ENT: Present mucous membranes moist *Routine Neck Exam Neck: Present supple; Absent lymphadenopathy *Routine Respiratory Exam Respiratory: Present CTA bilaterally; Absent respiratory distress, rhonchi, stridor, wheezes or crackles *Routine Cardiovascular Exam Cardiovascular: Present RRR *Routine Abdominal Exam Abdominal: Present soft, tenderness (Diffuse) and distended; Absent rebound or guarding Comments: Hypoactive bowel sounds *Routine Rectal Exam Rectal:: deferred *Routine Genitalia Exam Genitalia:: deferred *Routine Extremities Exam Extremities: Absent cyanosis, clubbing or edema *Routine Skin Exam Skin: Present warm; Absent rash *Routine Neurological Exam Neurological: Present alert, oriented X3 and moving all extremities; Absent altered mental status Assessment and Plan *Assessment and plan (1) Partial obstruction of small intestine: Status: Acute Category: Medical Code(s): K56.600 - Partial intestinal obstruction, unspecified as to cause (2) TUNDE (acute kidney injury): Status: Acute Category: Medical Code(s): N17.9 - Acute kidney failure, unspecified (3) Transaminitis: Status: Acute Category: Medical Code(s): R74.01 - Elevation of levels of liver transaminase levels (4) Gastric lesion: Status: Acute Category: Medical Code(s): K31.9 - Disease of stomach and duodenum, unspecified (5) Hypertension: Status: Chronic Qualifiers: Hypertension type: primary hypertension Qualified Code(s): I10 - Essential (primary) hypertension Category: Medical Code(s): I10 - Essential (primary) hypertension (6) Mitral valve regurgitation: Status: Chronic Category: Medical Code(s): I34.0 - Nonrheumatic mitral (valve) insufficiency (7) Hyperlipidemia: Status: Chronic Qualifiers: Hyperlipidemia type: mixed hyperlipidemia Qualified Code(s): E78.2 - Mixed hyperlipidemia Category: Medical Code(s): E78.5 - Hyperlipidemia, unspecified (8) Gout: Status: Chronic Qualifiers: Gout etiology: unspecified cause Gout site: unspecified site Category: Medical Code(s): M10.9 - Gout, unspecified (9) Afib: Status: Chronic Qualifiers: Atrial fibrillation type: paroxysmal Qualified Code(s): I48.0 - Paroxysmal atrial fibrillation Category: Medical Code(s): I48.91 - Unspecified atrial fibrillation (10) GERD (gastroesophageal reflux disease): Status: Chronic Qualifiers: Esophagitis presence: esophagitis presence not specified Qualified Code(s): K21.9 - Gastro-esophageal reflux disease without esophagitis Category: Medical Code(s): K21.9 - Gastro-esophageal reflux disease without esophagitis Plan 79-year-old male with nausea vomiting and diarrhea over the past 5 days, stopped having bowel movements 2 days ago. Presentation with abdominal pain and distention. Workup in the ER concerning for acute kidney injury and partial bowel obstruction. Discussed case with ER physician, request admission for fluid resuscitation, treatment of TUNDE, medical management of bowel obstruction. I agreed to admit for further management. Patient hemodynamically stable on room air. Problems addressed as follows: Bowel obstruction - CT reviewed personally, has gaseous distention of small bowel, no clear transition point. Concern for partial obstruction. Given his preceding diarrhea, nausea vomiting, suspect infectious. -Diarrhea panel ordered and pending -Bowel rest, n.p.o. - Continue Zofran 4 mg IV every 8 hours as needed -White count normal at 9, hemoglobin normal at 17. -Consider surgical eval/consult in the morning Acute kidney injury Transaminitis -BUN 37, creatinine 1.8. Baseline appears to be BUN 20, creatinine 1.4. Electrolytes otherwise normal with potassium 3.5, bicarb 22. -Repeat CBC, CMP, magnesium ordered for the morning -Elevated liver enzymes of bilirubin 1.2, AST 121, ALT 144, alkaline phosphatase 151. Suspect secondary to nausea and vomiting, will trend. -Lipase mildly elevated at 310 -No focal right or left upper quadrant pain on exam, pain diffuse. -Per my review of CT of abdomen, does not appear to have inflammation around pancreas. Does not appear to have dilation of bile ducts. Gallbladder absent. Right upper quadrant ultrasound ordered for the morning Gastric polyp/lesion GERD -On omeprazole, having increased symptoms with his vomiting. Initiate pantoprazole 40 mg nightly IV. Received famotidine in the ER. Monitor for improvement -CT personally reviewed, shows almost 2 cm lesion in his stomach concerning for polyp. Would benefit from outpatient GI follow-up and EGD for more definitive workup and diagnosis A-fib Chronic anticoagulation Hyperlipidemia Hypertension Mitral valve regurgitation -Follows with cardiology in [place]. On Xarelto 20 daily and, diltiazem 240 mg extended daily for rate/Blood pressure control, and pitavastatin 4 mg daily for cholesterol -Rate controlled at this time. Continue oral diltiazem. -Hold anticoagulation. Gout: Hold allopurinol and probenecid in the setting of n.p.o. DNR N.p.o. Holding anticoagulation, last dose of Xarelto morning of 09/23
--- NOTE | 2024-09-23 21:33 | PC.NURSE ---
greenhouse technician notified of admission, bed request placed
[2024-09-23] MEDS: 0.9 % SODIUM CHLORIDE 1000ML 1,000 ML 100 ML IV (21:37)
--- NOTE | 2024-09-23 21:48 | PC.NURSE ---
Attempted to call report. No answer
--- NOTE | 2024-09-23 22:09 | PC.NURSE ---
Attempted report again, no answer
--- NOTE | 2024-09-23 22:10 | PC.NURSE ---
Spoke to 2nd floor charge who will have accepting RN call me back
--- NOTE | 2024-09-23 22:24 | PC.NURSE ---
Gave repot to Jess Do RN on Med/Surg
[2024-09-23 22:30] LABS: Troponin I < 0.01 ng/ml (0.00-0.034)
--- NOTE | 2024-09-23 22:37 | PC.NURSE ---
Patient arrived to floor via wheelchair from ED at 22:35.
[2024-09-24] MEDS: PANTOPRAZOLE 40MG VIAL 40 MG IV ×2 (00:28→21:35)
--- NOTE | 2024-09-24 01:53 | US_ITS ---
PROCEDURE INFORMATION: Exam: US Abdomen, Limited; Right Upper Quadrant Exam date and time: 09/24/2024 8:30 AM Age: 79 years old Clinical indication: Abnormal findings; Abnormal lab test; Elevated liver enzymes TECHNIQUE: Imaging protocol: Real time ultrasound of the abdomen with image documentation. Limited exam focused on the right upper quadrant. COMPARISON: CT ANGIO ABDOMEN PELVIS 09/23/2024 8:11 PM FINDINGS: Liver: Moderate hepatic steatosis. No focal lesion or distinct evidence of cirrhosis. Gallbladder: Status post cholecystectomy. Biliary ducts: Common bile duct is normal (7.3 mm in diameter). Pancreas: Pancreas is obscured. Right kidney: Benign-appearing cysts in the right kidney. No appreciable nephrolithiasis or hydronephrosis. IMPRESSION: 1. Status post cholecystectomy. 2. Hepatic steatosis.
[2024-09-24 01:57] LABS: Troponin I < 0.01 ng/ml (0.00-0.034)
[2024-09-24 04:00] VITALS: BP 117/61; PULSE 78; RESP 16; TEMP 36.4; O2SAT 93; BMI 30.8
[2024-09-24 06:34] LABS: Eosinophils # 0.1 K/mm3 (0.0-0.4); Lymphocytes # 1.2 K/mm3 (0.7-4.5); Mean Corpuscular Hemoglobin 29.5 pg (27.0-31.2); Red Blood Count 5.12 M/mm3 (4.60-6.20)
[2024-09-24 06:38] LABS: Alanine Aminotransferase 244 U/L (12-78); Albumin Level 3.3 g/dl (3.5-5.0); Albumin/Globulin Ratio 1.3 (1.1-1.8); Aspartate Amino Transferase 315 U/L (17-59); Blood Urea Nitrogen 26 mg/dl (9-20); Calcium 7.8 mg/dl (8.4-10.2); Carbon Dioxide 22 mmol/L (22.0-30.0); Creatinine Clearance Estimated 63 mL/min (50-200); Estimated Glomerular Filt Rate 53 ml/min (>60); GFR (African American) 65 ML/MIN (>60); Globulin 2.5 g/dL (1.3-3.2); Glucose 92 mg/dl (74-100); Magnesium 1.9 mg/dl (1.6-2.3); Phosphorous 3.8 mg/dl (2.5-4.5); Potassium 3.7 mmoL/L (3.5-5.1); Total Protein,Serum 5.8 g/dl (6.3-8.2)
--- NOTE | 2024-09-24 06:38 | PC.NURSE ---
Pt. is resting in bed. Pt. is alert and orientated x 4. Pt. was admitted from the ED last night with partial SBO, TUNDE, Gastric lesion. No pain overnight. No nausea, vomiting or diarrhea. Pt getting IV fluids and is NPO for US of [facility] today. vital signs stable. Personal items and call flores in reach.
[2024-09-24 06:39] LABS: Alkaline Phosphatase 148 U/L (38-126); Anion Gap 12.7 mEq/L (5-15); Bilirubin,Total 1.8 mg/dl (0.2-1.3); Chloride 109 mmol/L (98-107); Sodium 140 mmol/L (136-145)
[2024-09-24 06:40] LABS: Prothrombin Time 12.2 seconds (10.1-12.5)
[2024-09-24 06:52] LABS: Basophils # 0.1 K/mm3 (0-0.2); Eosinophils % 1.3 % (0.1-12.0); Hematocrit 45.8 % (42.0-52.0); Lymphocytes % 21.1 % (10-50); Mean Corpuscular Volume 89.4 fl (80-94); Mean Platelet Volume 8.9 fl (7.4-10.4); Monocytes # 0.4 K/mm3 (0.1-1.0); Monocytes % 7.4 % (1.7-9.3); Neutrophils % 69.2 % (37.0-80.0); Platelet Count 183 K/mm3 (142-424); Red Cell Distribution Width 14.7 % (11.5-17.5); White Blood Count 5.8 K/mm3 (4.8-10.8)
[2024-09-24 06:53] LABS: Hemoglobin 15.1 g/dL (14.1-18.0)
--- NOTE | 2024-09-24 07:28 | P.CONS_ITS ---
History of Present Illness *Admission Date: 09/23/24 *Reason for visit:: Partial small bowel obstruction *History of present illness: Patient is a 79-year-old male with history of chronic atrial fibrillation on Xarelto, hypertension, hyperlipidemia, GERD. He has a prior history of appendectomy and cholecystectomy. He initially had symptoms of loose watery stools beginning on 09/19/2024. He had taken some Imodium 2 days ago. He felt well in the morning of 09/23/2024 but then developed symptoms of generalized abdominal pain, nausea, vomiting, and decreased output of stool. He has had minimal flatus. Described abdominal distention. Evaluation in the emergency department included CT scan which was concerning for partial bowel obstruction. CT scan revealed, incidentally noted gastric polyp or pedunculated mass at the antrum of the stomach measuring 16 mm diameter by at least 19 mm in length. Advise gastroenterology consultation. Generous gaseous and fluid distention of the jejunum. May indicate partial small bowel obstruction. No free fluid or free gas. Most likely infectious or inflammatory in origin... He was admitted for inpatient management. Surgical consultation was ordered this morning. Patient states he feels essentially normal with resolution of symptoms at this time. No acute distress. No abdominal pain. No nausea. He has not required nasogastric tube. Patient states that he has never had a prior colonoscopy and does not want to do one. [facility] Disclaimer: The information contained in this section may have been updated after the patient was seen, as this information can be updated by other users. Medical History (Updated 09/24/24 @ 01:54 by Yemi Campos MD) Brain bleed Seizure Degenerative disc disease, lumbar Lumbar radiculopathy Ligamentum flavum hypertrophy Hyperlipidemia GERD (gastroesophageal reflux disease) Afib Gout Surgical History History of lumbar surgery Previous back surgery H/O shoulder surgery History of cholecystectomy History of appendectomy Family History Stroke Father Social History (Updated 09/23/24 @ 23:37 by Becky Quiroz RN) Smoking Status: Former smoker years smoked: 12 alcohol intake: current alcohol intake frequency: a few times a month substance use type: denies use current occupational status: retired Travel in the last 8 weeks: None household members: none housing: house Meds Home Medications and Allergies Home Medications ?Medication ?Instructions ?Recorded ?Confirmed ?Type rivaroxaban 20 mg tablet (Xarelto) 20 mg PO DAILY 01/29/23 09/23/24 History probenecid 500 mg tablet 250 mg PO DAILY gout 09/26/23 09/23/24 History sour stoddard extract 1,000 mg 1,000 mg PO DIRECTED SUPPLIMENT 11/06/23 09/23/24 History capsule (Tart Stoddard Extract) diltiazem HCl 240 mg 240 mg PO DAILY #90 caps 04/10/24 09/23/24 Rx capsule,extended release 24 hr allopurinol 100 mg tablet See Rx Instructions .Route 04/15/24 09/23/24 Rx .COMPLEX #90 tabs omeprazole 20 mg capsule,delayed 20 mg PO DAILY #90 caps 06/15/24 09/23/24 Rx release pitavastatin calcium 4 mg tablet 4 mg PO DAILY #30 tabs 06/15/24 09/23/24 Rx (Livalo) New Prescriptions to Start Prescriptions: Allergies Allergy/AdvReac Type Severity Reaction Status Date / Time codeine Allergy Rash Verified 09/23/24 18:41 Exam (Inpt) Vital signs and Labs for Last 24 Hours: Temp Pulse Resp BP Pulse Ox O2 Del Method O2 Flow Rate 97.6 F 78 16 117/61 93 L Room Air 2 09/24/24 04:00 09/24/24 04:00 09/24/24 04:00 09/24/24 04:00 09/24/24 04:00 09/24/24 06:49 09/23/24 22:43 Laboratory Results - last 24 hr 09/23/24 18:36: WBC 9.5, RBC 5.88, Hgb 17.4, Hct 51.3, MCV 87.2, MCH 29.5, MCHC 33.9, RDW 14.8, Plt Count 244, MPV 8.6, Neut % (Auto) 73.2, Lymph % (Auto) 19.0, [place] % (Auto) 6.1, Eos % (Auto) 1.0, Baso % (Auto) 0.8, Neut # (Auto) 6.9, Lymph # (Auto) 1.8, [place] # (Auto) 0.6, Eos # (Auto) 0.1, Baso # (Auto) 0.1, Sodium 139, Potassium 3.5, Chloride 105, Carbon Dioxide 22, Anion Gap 15.5 H, BUN 33 H, Creatinine 1.80 H, Estimated Creat Clear 54, Estimated GFR 37 L, Est GFR ( Amer) 44 L, Glucose 162 H, Calcium 8.9, Total Bilirubin 1.2, AST 121 H, ALT 144 H, Alkaline Phosphatase 151 H, Troponin I < 0.01, Total Protein 8.0, Albumin 4.4, Globulin 3.6 H, Albumin/Globulin Ratio 1.2, Lipase 310 H 09/23/24 19:39: Lactate 1.3, SARS-CoV-2 (PCR) Not detected, HIV 1&2 Antibody Rapid Nonreactive, Influenza A Untype (PCR) Not detected, Influenza Type B (PCR) Not detected 09/23/24 20:05: Urine Color Yellow, Urine Appearance Clear, Urine pH 6.0, Ur Specific [place] >= 1.030, Urine Protein Trace, Urine Glucose (UA) Negative, Urine Ketones Negative, Urine Blood Negative, Urine Nitrate Positive, Urine Bilirubin Negative, Urine Urobilinogen 1.0, Ur Leukocyte Esterase Negative, Urine RBC 3-5, Urine WBC 5-10, Ur Squamous Epith Cells 3-5, Urine Bacteria 3+, Urine Mucus 2+ 09/23/24 22:00: Troponin I < 0.01 09/24/24 00:35: Troponin I < 0.01 09/24/24 05:23: WBC 5.8 D, RBC 5.12, Hgb 15.1 D, Hct 45.8, MCV 89.4, MCH 29.5, MCHC 33.0, RDW 14.7, Plt Count 183, MPV 8.9, Neut % (Auto) 69.2, Lymph % (Auto) 21.1, [place] % (Auto) 7.4, Eos % (Auto) 1.3, Baso % (Auto) 1.0, Neut # (Auto) 4.0, Lymph # (Auto) 1.2, [place] # (Auto) 0.4, Eos # (Auto) 0.1, Baso # (Auto) 0.1, PT 12.2, INR 1.10, Sodium 140, Potassium 3.7, Chloride 109 H, Carbon Dioxide 22, Anion Gap 12.7, BUN 26 H, Creatinine 1.30 H D, Estimated Creat Clear 63, E stimated GFR 53 L, Est GFR ( Amer) 65 D, Glucose 92 D, Calcium 7.8 L, Phosphorus 3.8, Magnesium 1.9, Total Bilirubin 1.8 H, AST 315 H* D, ALT 244 H D, Alkaline Phosphatase 148 H, Total Protein 5.8 L D, Albumin 3.3 L D, Globulin 2.5, Albumin/Globulin Ratio 1.3 I & O for Labs for Last 24 Hours: Intake & Output 09/21/24 09/22/24 09/23/24 09/24/24 11:59 11:59 11:59 11:59 Output Total 0 / 0 Balance 0 / 0 Weight 208 lb 4.8 oz Constitutional: no acute distress Head: Present normocephalic Respiratory: Present CTA bilaterally GI: Present soft; Absent tenderness Results Labs 09/24/24 05:23 09/24/24 05:23 Labs: Laboratory Results - last 24 hr 09/23/24 18:36: WBC 9.5, RBC 5.88, Hgb 17.4, Hct 51.3, MCV 87.2, MCH 29.5, MCHC 33.9, RDW 14.8, Plt Count 244, MPV 8.6, Neut % (Auto) 73.2, Lymph % (Auto) 19.0, [place] % (Auto) 6.1, Eos % (Auto) 1.0, Baso % (Auto) 0.8, Neut # (Auto) 6.9, Lymph # (Auto) 1.8, [place] # (Auto) 0.6, Eos # (Auto) 0.1, Baso # (Auto) 0.1, Sodium 139, Potassium 3.5, Chloride 105, Carbon Dioxide 22, Anion Gap 15.5 H, BUN 33 H, Creatinine 1.80 H, Estimated Creat Clear 54, Estimated GFR 37 L, Est GFR ( Amer) 44 L, Glucose 162 H, Calcium 8.9, Total Bilirubin 1.2, AST 121 H, ALT 144 H, Alkaline Phosphatase 151 H, Troponin I < 0.01, Total Protein 8.0, Albumin 4.4, Globulin 3.6 H, Albumin/Globulin Ratio 1.2, Lipase 310 H 09/23/24 19:39: Lactate 1.3, SARS-CoV-2 (PCR) Not detected, HIV 1&2 Antibody Rapid Nonreactive, Influenza A Untype (PCR) Not detected, Influenza Type B (PCR) Not detected 09/23/24 20:05: Urine Color Yellow, Urine Appearance Clear, Urine pH 6.0, Ur Specific [place] >= 1.030, Urine Protein Trace, Urine Glucose (UA) Negative, Urine Ketones Negative, Urine Blood Negative, Urine Nitrate Positive, Urine Bilirubin Negative, Urine Urobilinogen 1.0, Ur Leukocyte Esterase Negative, Urine RBC 3-5, Urine WBC 5-10, Ur Squamous Epith Cells 3-5, Urine Bacteria 3+, Urine Mucus 2+ 09/23/24 22:00: Troponin I < 0.01 09/24/24 00:35: Troponin I < 0.01 09/24/24 05:23: WBC 5.8 D, RBC 5.12, Hgb 15.1 D, Hct 45.8, MCV 89.4, MCH 29.5, MCHC 33.0, RDW 14.7, Plt Count 183, MPV 8.9, Neut % (Auto) 69.2, Lymph % (Auto) 21.1, [place] % (Auto) 7.4, Eos % (Auto) 1.3, Baso % (Auto) 1.0, Neut # (Auto) 4.0, Lymph # (Auto) 1.2, [place] # (Auto) 0.4, Eos # (Auto) 0.1, Baso # (Auto) 0.1, PT 12.2, INR 1.10, Sodium 140, Potassium 3.7, Chloride 109 H, Carbon Dioxide 22, Anion Gap 12.7, BUN 26 H, Creatinine 1.30 H D, Estimated Creat Clear 63, E stimated GFR 53 L, Est GFR ( Amer) 65 D, Glucose 92 D, Calcium 7.8 L, Phosphorus 3.8, Magnesium 1.9, Total Bilirubin 1.8 H, AST 315 H* D, ALT 244 H D, Alkaline Phosphatase 148 H, Total Protein 5.8 L D, Albumin 3.3 L D, Globulin 2.5, Albumin/Globulin Ratio 1.3 Assessment and Plan *Assessment and plan (1) Partial obstruction of small intestine: Status: Acute Category: Medical Code(s): K56.600 - Partial intestinal obstruction, unspecified as to cause Plan Nonoperative management at this time. I will check an acute abdominal series. This may be potentially initially gastroenteritis with subsequent ileus.
[2024-09-24 08:00] VITALS: BP 121/69; PULSE 66; RESP 20; TEMP 36.7; O2SAT 100
--- NOTE | 2024-09-24 08:14 | HMH.PHAINT1 ---
Pharmacy Intervention Comments: HOME MEDICATIONS VERIFIED VIA OUTPATIENT PHARMACY AND PATIENT INTERVIEW
[2024-09-24] MEDS: 0.9 % SODIUM CHLORIDE 1000ML 1,000 ML 100 ML IV (09:43)
[2024-09-24] MEDS: dilTIAZem ER 240MG CAPSULE 240 MG PO (09:43)
[2024-09-24 12:40] LABS: Alanine Aminotransferase 224 U/L (12-78); Albumin Level 3.3 g/dl (3.5-5.0); Albumin/Globulin Ratio 1.3 (1.1-1.8); Alkaline Phosphatase 157 U/L (38-126); Anion Gap 13.7 mEq/L (5-15); Aspartate Amino Transferase 192 U/L (17-59); Bilirubin,Total 1.2 mg/dl (0.2-1.3); Blood Urea Nitrogen 21 mg/dl (9-20); Calcium 8.1 mg/dl (8.4-10.2); Carbon Dioxide 21 mmol/L (22.0-30.0); Chloride 110 mmol/L (98-107); Creatinine Clearance Estimated 68 mL/min (50-200); Estimated Glomerular Filt Rate 59 ml/min (>60); GFR (African American) 71 ML/MIN (>60); Globulin 2.6 g/dL (1.3-3.2); Glucose 91 mg/dl (74-100); Potassium 3.7 mmoL/L (3.5-5.1); Sodium 141 mmol/L (136-145); Total Protein,Serum 5.9 g/dl (6.3-8.2)
[2024-09-24 12:46] VITALS: BP 131/72; PULSE 61; RESP 19; TEMP 36.6; O2SAT 91
[2024-09-24 16:00] VITALS: BP 128/66; PULSE 80; RESP 20; TEMP 36.6; O2SAT 95
--- NOTE | 2024-09-24 18:00 | PC.NURSE ---
Pt A&O x4. Ambulates independently to and from bathroom. No BM today. Pt denies any pain. Bowel sounds active, abdomen soft, non-tender. Pt laying in bed with no complaints at this time. call light in reach.
[2024-09-24 20:00] VITALS: BP 118/60; PULSE 76; RESP 18; TEMP 36.5; O2SAT 94
[2024-09-24] MEDS: SODIUM CHLORIDE 0.9% 10ML VIAL 10 ML IV (20:59)
--- NOTE | 2024-09-24 22:03 | P.PN_ITS ---
Subjective *Date: 09/24/24 *Time: 22:03 Interval history: Doing well, Having bowel sounds, passing gas. Started ice and sips with good toleration. Exam Data for Last 24 hours Vital signs and Labs for Last 24 Hours: Temp Pulse Resp BP Pulse Ox O2 Del Method O2 Flow Rate 97.7 F 76 18 118/60 94 L Room Air 2 09/24/24 20:00 09/24/24 20:00 09/24/24 20:00 09/24/24 20:00 09/24/24 20:00 09/24/24 20:00 09/23/24 22:43 Laboratory Results - last 24 hr 09/23/24 22:00: Troponin I < 0.01 09/24/24 00:35: Troponin I < 0.01 09/24/24 05:23: WBC 5.8 D, RBC 5.12, Hgb 15.1 D, Hct 45.8, MCV 89.4, MCH 29.5, MCHC 33.0, RDW 14.7, Plt Count 183, MPV 8.9, Neut % (Auto) 69.2, Lymph % (Auto) 21.1, [place] % (Auto) 7.4, Eos % (Auto) 1.3, Baso % (Auto) 1.0, Neut # (Auto) 4.0, Lymph # (Auto) 1.2, [place] # (Auto) 0.4, Eos # (Auto) 0.1, Baso # (Auto) 0.1, PT 12.2, INR 1.10, Sodium 140, Potassium 3.7, Chloride 109 H, Carbon Dioxide 22, Anion Gap 12.7, BUN 26 H, Creatinine 1.30 H D, Estimated Creat Clear 63, Estimated GFR 53 L, Est GFR ( Amer) 65 D, Glucose 92 D, Calcium 7.8 L, Phosphorus 3.8, Magnesium 1.9, Total Bilirubin 1.8 H, AST 315 H* D, ALT 244 H D, Alkaline Phosphatase 148 H, Total Protein 5.8 L D, Albumin 3.3 L D, Globulin 2.5, Albumin/Globulin Ratio 1.3 09/24/24 12:20: Sodium 141, Potassium 3.7, Chloride 110 H, Carbon Dioxide 21 L, Anion Gap 13.7, BUN 21 H, Creatinine 1.20, Estimated Creat Clear 68, Estimated GFR 59, Est GFR ( Amer) 71, Glucose 91, Calcium 8.1 L, Total Bilirubin 1.2, AST 192 H D, ALT 224 H, Alkaline Phosphatase 157 H, Total Protein 5.9 L, Albumin 3.3 L, Globulin 2.6, Albumin/Globulin Ratio 1.3 I & O for Last 24 hours: Intake & Output 09/21/24 09/22/24 09/23/24 09/24/24 23:59 23:59 23:59 23:59 Output Total 0 / 0 0 / 0 Balance 0 / 0 0 / 0 Weight 94.529 kg 94.483 kg Constitutional Constitutional: no acute distress *Routine HEENT Exam Head: Present normocephalic Eye: Present EOMI and PERRL ENT: Present mucous membranes moist *Routine Neck Exam Neck: Present supple; Absent lymphadenopathy *Routine Respiratory Exam Respiratory: Present CTA bilaterally *Routine Cardiovascular Exam Cardiovascular: Present RRR *Routine Abdominal Exam Abdominal: Present soft and normoactive bowel sounds; Absent tenderness *Routine Extremities Exam Extremities: Absent cyanosis, clubbing or edema *Routine Skin Exam Skin: Present warm; Absent rash *Routine Neurological Exam Neurological: Present alert and oriented X3 Assessment and Plan *Assessment and plan (1) Partial obstruction of small intestine: Status: Acute Category: Medical Code(s): K56.600 - Partial intestinal obstruction, unspecified as to cause (2) TUNDE (acute kidney injury): Status: Acute Category: Medical Code(s): N17.9 - Acute kidney failure, unspecified (3) Transaminitis: Status: Acute Category: Medical Code(s): R74.01 - Elevation of levels of liver transaminase levels (4) Gastric lesion: Status: Acute Category: Medical Code(s): K31.9 - Disease of stomach and duodenum, unspecified (5) Hypertension: Status: Chronic Qualifiers: Hypertension type: primary hypertension Qualified Code(s): I10 - Essential (primary) hypertension Category: Medical Code(s): I10 - Essential (primary) hypertension (6) Mitral valve regurgitation: Status: Chronic Category: Medical Code(s): I34.0 - Nonrheumatic mitral (valve) insufficiency (7) Hyperlipidemia: Status: Chronic Qualifiers: Hyperlipidemia type: mixed hyperlipidemia Qualified Code(s): E78.2 - Mixed hyperlipidemia Category: Medical Code(s): E78.5 - Hyperlipidemia, unspecified (8) Gout: Status: Chronic Qualifiers: Gout site: unspecified site Gout etiology: unspecified cause Category: Medical Code(s): M10.9 - Gout, unspecified (9) Afib: Status: Chronic Qualifiers: Atrial fibrillation type: paroxysmal Qualified Code(s): I48.0 - Paroxysmal atrial fibrillation Category: Medical Code(s): I48.91 - Unspecified atrial fibrillation (10) GERD (gastroesophageal reflux disease): Status: Chronic Qualifiers: Esophagitis presence: esophagitis presence not specified Qualified Code(s): K21.9 - Gastro-esophageal reflux disease without esophagitis Category: Medical Code(s): K21.9 - Gastro-esophageal reflux disease without esophagitis Plan 79-year-old male with nausea vomiting and diarrhea over the past 5 days, stopped having bowel movements 2 days ago. Presentation with abdominal pain and distention. Workup in the ER concerning for acute kidney injury and partial bowel obstruction. Discussed case with ER physician, request admission for fluid resuscitation, treatment of TUNDE, medical management of bowel obstruction. I agreed to admit for further management. Patient hemodynamically stable on room air. Problems addressed as follows: SBO - CT reviewed personally, has gaseous distention of small bowel, no clear transition point. Concern for partial obstruction. Given his preceding diarrhea, nausea vomiting, suspect infectious. -Diarrhea panel ordered and pending - Discussed with general surgery, started ice and sips today. Tolerating well. Having bowel sounds, passing gas. - Follow-up small bowel follow through tomorrow. - Continue Zofran 4 mg IV every 8 hours as needed -White count normal at 9, hemoglobin normal at 17. Acute kidney injury Transaminitis - Cr improved from 1.8 to 1.0 this morning after IV fluids. -Elevated liver enzymes of bilirubin 1.2, AST 121, ALT 144, alkaline phosphatase 151. Suspect secondary to nausea and vomiting, will trend. -Lipase mildly elevated at 310 - RUQ ultrasound shows cholecystectomy and hepatic steatosis. - Transamiitis likely from acute illness, continue to monitor. Gastric polyp/lesion GERD -On omeprazole, having increased symptoms with his vomiting. Initiate pantoprazole 40 mg nightly IV. Received famotidine in the ER. Monitor for improvement -CT personally reviewed, shows almost 2 cm lesion in his stomach concerning for polyp. Would benefit from outpatient GI follow-up and EGD for more definitive workup and diagnosis A-fib Chronic anticoagulation Hyperlipidemia Hypertension Mitral valve regurgitation -Follows with cardiology in [place]. On Xarelto 20 daily and, diltiazem 240 mg extended daily for rate/Blood pressure control, and pitavastatin 4 mg daily for cholesterol -Rate controlled at this time. Continue oral diltiazem. -Hold anticoagulation for possible surgery if needed. Gout: Hold allopurinol and probenecid in the setting of n.p.o. DNR N.p.o. Holding anticoagulation, last dose of Xarelto morning of 09/23
[2024-09-25 04:00] VITALS: BP 113/79; PULSE 70; RESP 16; TEMP 37; O2SAT 96; BMI 30.9
[2024-09-25 04:44] LABS: Adenovirus F 40/41, stool Not Detected (NotDetected); Astrovirus Not Detected (NotDetected); Campylobacter Not Detected (NotDetected); Clostridium Difficile A/B, PCR Not Detected (NotDetected); Cryptosporidium Not Detected (NotDetected); Cyclospora Cayetanesis Not Detected (NotDetected); Entamoeba histolytica Not Detected (NotDetected); Enteroaggregative E coli Not Detected (NotDetected); Enteropathogenic E coli Not Detected (NotDetected); Giardia lamblia Not Detected (NotDetected); Norovirus Not Detected (NotDetected); Plesimonas Shigalloides, PCR Not Detected (NotDetected); Rotavirus A Not Detected (NotDetected); Salmonella, PCR Not Detected (NotDetected); Sapovirus Not Detected (NotDetected); Shiga-like toxin E coli Not Detected (NotDetected); Shigella Enterovasive E coli Not Detected (NotDetected); Vibrio Cholerae Not Detected (NotDetected); Vibrio, PCR Not Detected (NotDetected); Yersinia Entercolitica, PCR Not Detected (NotDetected)
--- NOTE | 2024-09-25 05:47 | PC.NURSE ---
Pt. resting in the bed. Alert and orientated x 4. Pt. denies any abdominal pain, nausea, or vomiting. Pt. able to get himself to bathroom and bed by himself. Pt. refused IVF after o300. vital signs stable. Personal items and call flores in reach.
--- NOTE | 2024-09-25 07:04 | EXP.SURG.PN ---
Subjective Narrative: Patient states that he has had several, 3 or 4, loose stools. No abdominal pain or nausea. Exam Data for Last 24 hours Vital signs and Labs for Last 24 Hours: Temp Pulse Resp BP Pulse Ox O2 Del Method O2 Flow Rate 98.6 F 70 16 113/79 96 Room Air 2 09/25/24 04:00 09/25/24 04:00 09/25/24 04:00 09/25/24 04:00 09/25/24 04:00 09/25/24 05:00 09/23/24 22:43 Laboratory Results - last 24 hr 09/24/24 12:20: Sodium 141, Potassium 3.7, Chloride 110 H, Carbon Dioxide 21 L, Anion Gap 13.7, BUN 21 H, Creatinine 1.20, Estimated Creat Clear 68, Estimated GFR 59, Est GFR ( Amer) 71, Glucose 91, Calcium 8.1 L, Total Bilirubin 1.2, AST 192 H D, ALT 224 H, Alkaline Phosphatase 157 H, Total Protein 5.9 L, Albumin 3.3 L, Globulin 2.6, Albumin/Globulin Ratio 1.3 I & O for Last 24 hours: Intake & Output 09/22/24 09/23/24 09/24/24 09/25/24 11:59 11:59 11:59 11:59 Output Total 0 / 0 0 / 0 Balance 0 / 0 0 / 0 Weight 208 lb 4.8 oz 208 lb 9.6 oz *Routine Abdominal Exam Abdominal: Absent tenderness Progress Note: A&P Assessment and plan (1) Partial obstruction of small intestine: Status: Acute Assessment and plan: Full liquid diet (2) TUNDE (acute kidney injury): Status: Acute (3) Transaminitis: Status: Acute (4) Gastric lesion: Status: Acute (5) Hypertension: Status: Chronic (6) Mitral valve regurgitation: Status: Chronic (7) Hyperlipidemia: Status: Chronic (8) Gout: Status: Chronic (9) Afib: Status: Chronic (10) GERD (gastroesophageal reflux disease): Status: Chronic
[2024-09-25 07:24] LABS: HCV Ab Non Reactive (Non Reactive)
[2024-09-25 08:00] VITALS: BP 118/67; PULSE 70; RESP 15; TEMP 36.4; O2SAT 94
[2024-09-25] MEDS: dilTIAZem ER 240MG CAPSULE 240 MG PO (08:47)
[2024-09-25 09:13] LABS: Alanine Aminotransferase 170 U/L (12-78); Albumin Level 3.7 g/dl (3.5-5.0); Albumin/Globulin Ratio 1.3 (1.1-1.8); Alkaline Phosphatase 161 U/L (38-126); Anion Gap 17.9 mEq/L (5-15); Aspartate Amino Transferase 92 U/L (17-59); Bilirubin,Total 1.3 mg/dl (0.2-1.3); Blood Urea Nitrogen 20 mg/dl (9-20); Calcium 8.5 mg/dl (8.4-10.2); Carbon Dioxide 19 mmol/L (22.0-30.0); Chloride 109 mmol/L (98-107); Creatinine Clearance Estimated 68 mL/min (50-200); Estimated Glomerular Filt Rate 59 ml/min (>60); GFR (African American) 71 ML/MIN (>60); Globulin 2.9 g/dL (1.3-3.2); Glucose 113 mg/dl (74-100); Potassium 3.9 mmoL/L (3.5-5.1); Sodium 142 mmol/L (136-145); Total Protein,Serum 6.6 g/dl (6.3-8.2)
[2024-09-25 09:14] LABS: Enterotoxigenic E coli Detected (NotDetected)
--- NOTE | 2024-09-25 10:29 | PC.NURSE ---
Refused iv fluids.
--- NOTE | 2024-09-25 14:16 | DIET.NUTRFU ---
Low fiber/low residue diet reviewed and handout provided. He seems recpetive to change in diet, he outs at restaurants alot. He indicated he will just have to be more observant to what he is ordering.
--- NOTE | 2024-09-25 15:21 | P.DS_ITS ---
General Admission date:: 09/23/24 HPI HPI HPI: Patient is a 79-year-old male with history of chronic atrial fibrillation on Xarelto, hypertension, hyperlipidemia, GERD. He has a prior history of appendectomy and cholecystectomy. He initially had symptoms of loose watery stools beginning on 09/19/2024. He had taken some Imodium 2 days ago. He felt well in the morning of 09/23/2024 but then developed symptoms of generalized abdominal pain, nausea, vomiting, and decreased output of stool. He has had minimal flatus. Described abdominal distention. Evaluation in the emergency department included CT scan which was concerning for partial bowel obstruction. CT scan revealed, incidentally noted gastric polyp or pedunculated mass at the antrum of the stomach measuring 16 mm diameter by at least 19 mm in length. Advise gastroenterology consultation. Generous gaseous and fluid distention of the jejunum. May indicate partial small bowel obstruction. No free fluid or free gas. Most likely infectious or inflammatory in origin... He was admitted for inpatient management. Surgical consultation was ordered this morning. Patient states he feels essentially normal with resolution of symptoms at this time. No acute distress. No abdominal pain. No nausea. He has not required nasogastric tube. Patient states that he has never had a prior colonoscopy and does not want to do one. Hospital Course Hospital Course Hospital Course: Santo Terrell is a 79-year-old male with nausea vomiting and diarrhea over the past 5 days, stopped having bowel movements 2 days ago. Presentation with abdominal pain and distention. Workup in the ER concerning for acute kidney injury and partial bowel obstruction. Discussed case with ER physician, request admission for fluid resuscitation, treatment of TUNDE, medical management of bowel obstruction. I agreed to admit for further management. Patient hemodynamically stable on room air. Problems addressed as follows: Partial SBO - CT reviewed personally, has gaseous distention of small bowel, no clear transition point. Concern for partial obstruction. Given his preceding diarrhea, nausea vomiting, suspect infectious. ? Clinically improved with bowel rest, and slowly transitioning to low residue diet. Tolerated full liquid diet this morning, and low residue diet this afternoon without issues. ? General Surgery consulted, no surgical interventions needed at this time. ? Patient is tolerating p.o. intake without nausea/vomiting, having bowel movements, positive for bowel sounds. Ambulating independently in the hallways without distress. ? Diarrhea panel was positive for ETEC. Supportive treatment with oral rehydration. ? Nutrition consulted, provided recommendations on low residue diet upon discharge. Will continue low residue diet for the next couple days and slowly transition back to regular diet. ? Medically stable for discharge. Strict return precautions discussed and understood. ? Will follow-up with PCP within 1 week. Acute kidney injury Transaminitis - Cr improved from 1.8 to 1.2 with IV and oral rehydration. - LFTs initially elevated, improved as SBO improved. - RUQ ultrasound shows cholecystectomy and hepatic steatosis. -Transaminitis likely from acute illness, continue to monitor. Gastric polyp/lesion GERD -Continue PPI. -CT personally reviewed, shows almost 2 cm lesion in his stomach concerning for polyp. Would benefit from outpatient GI follow-up and EGD for more definitive workup and diagnosis. Referral made. A-fib Chronic anticoagulation Hyperlipidemia Hypertension Mitral valve regurgitation -Follows with cardiology in [place]. On Xarelto 20 daily and, diltiazem 240 mg extended daily for rate/Blood pressure control, and pitavastatin 4 mg daily for cholesterol -Rate controlled at this time. Continue oral diltiazem. Exam Data for Last 24 hours Vital signs and Labs for Last 24 Hours: Temp Pulse Resp BP Pulse Ox O2 Del Method O2 Flow Rate 97.6 F 70 15 118/67 94 L Room Air 2 09/25/24 08:00 09/25/24 08:00 09/25/24 08:00 09/25/24 08:00 09/25/24 08:00 09/25/24 14:10 09/23/24 22:43 Laboratory Results - last 24 hr 09/23/24 19:39: Hepatitis C Antibody Non reactive 09/23/24 20:05: Urine Color Yellow, Urine Appearance Clear, Urine pH 6.0, Ur Specific [place] >= 1.030, Urine Protein Trace, Urine Glucose (UA) Negative, Urine Ketones Negative, Urine Blood Negative, Urine Nitrate Positive, Urine Bilirubin Negative, Urine Urobilinogen 1.0, Ur Leukocyte Esterase Negative, Urine RBC 3-5, Urine WBC 5-10, Ur Squamous Epith Cells 3-5, Urine Bacteria 3+, Urine Mucus 2+ 09/25/24 04:34: Stl Aeromonas (PCR) Not detected, Stl C. cayetanensis PCR Not detected, Stool Rotavirus (PCR) Not detected, Stl Adenov F 40/41 PCR Not detected, Stool Astrovirus (PCR) Not detected, Stool Campylobacter PCR Not detected, Stl C.difficile Tox PCR Not detected, Stool Cryptosporidium PCR Not detected, Stl E.coli Shiga Tox PCR Not detected, Stool E coli O157 PCR Not detected, Stl Enterotoxigenic E PCR Detected A, Stool EPEC (PCR) Not detected, Stool EAEC (PCR) Not detected, Stl E. histolytica PCR Not detected, Stool Giardia Lamblia PCR Not detected, Stool Salmonella PCR Not detected, Stool Sapovirus (PCR) Not detected, Stl P. shigelloides PCR Not detected, Stl Shigella/EIEC PCR Not detected, St Y.enterocolitica PCR Not detected, Stool Vibrio (PCR) Not detected, Stl Vibrio cholerae PCR Not detected, Stl Norovirus GI/GII PCR Not detected 09/25/24 08:57: Sodium 142, Potassium 3.9, Chloride 109 H, Carbon Dioxide 19 L, Anion Gap 17.9 H, BUN 20, Creatinine 1.20, Estimated Creat Clear 68, Estimated GFR 59, Est GFR ( Amer) 71, Glucose 113 H D, Calcium 8.5, Total Bilirubin 1.3, AST 92 H D, ALT 170 H, Alkaline Phosphatase 161 H, Total Protein 6.6, Albumin 3.7 D, Globulin 2.9, Albumin/Globulin Ratio 1.3 I & O for Last 24 hours: Intake & Output 09/22/24 09/23/24 09/24/24 09/25/24 23:59 23:59 23:59 23:59 Intake Total 870 / 870 Output Total 0 / 0 0 / 0 0 / 0 Balance 0 / 0 0 / 0 870 / 870 Weight 94.529 kg 94.483 kg 94.619 kg Microbiology Reports for the Last 24 Hours: Microbiology 09/23/24 20:05 Urine,Clean Catch Urine Culture - Preliminary Gram Negative Rods Constitutional Constitutional: no acute distress *Routine HEENT Exam Head: Present normocephalic Eye: Present EOMI and PERRL ENT: Present mucous membranes moist *Routine Neck Exam Neck: Present supple; Absent lymphadenopathy *Routine Respiratory Exam Respiratory: Present CTA bilaterally *Routine Cardiovascular Exam Cardiovascular: Present RRR *Routine Abdominal Exam Abdominal: Present soft and normoactive bowel sounds; Absent tenderness *Routine Extremities Exam Extremities: Absent cyanosis, clubbing or edema *Routine Skin Exam Skin: Present warm; Absent rash *Routine Neurological Exam Neurological: Present alert and oriented X3 Results Data Completed and Pending Labs on day of discharge: Labs from last 24 hours 09/25/24 09/25/24 09/23/24 08:57 04:34 20:05 Sodium 142 Potassium 3.9 Chloride 109 H Carbon Dioxide 19 L Anion Gap 17.9 H BUN 20 Creatinine 1.20 Estimated Creat Clear 68 Estimated GFR 59 Est GFR ( Amer) 71 Glucose 113 H D Calcium 8.5 Total Bilirubin 1.3 AST 92 H D ALT 170 H Alkaline Phosphatase 161 H Total Protein 6.6 Albumin 3.7 D Globulin 2.9 Albumin/Globulin Ratio 1.3 Urine Color Yellow Urine Appearance Clear Urine pH 6.0 Ur Specific [place] >= 1.030 Urine Protein Trace Urine Glucose (UA) Negative Urine Ketones Negative Urine Blood Negative Urine Nitrate Positive Urine Bilirubin Negative Urine Urobilinogen 1.0 Ur Leukocyte Esterase Negative Urine RBC 3-5 Urine WBC 5-10 Ur Squamous Epith Cells 3-5 Urine Bacteria 3+ Urine Mucus 2+ Stl Aeromonas (PCR) Not detected Stl C. cayetanensis PCR Not detected Stool Rotavirus (PCR) Not detected Stl Adenov F 40/41 PCR Not detected Stool Astrovirus (PCR) Not detected Stool Campylobacter PCR Not detected Stl C.difficile Tox PCR Not detected Stool Cryptosporidium PCR Not detected Stl E.coli Shiga Tox PCR Not detected Stool E coli O157 PCR Not detected Stl Enterotoxigenic E PCR Detected A Stool EPEC (PCR) Not detected Stool EAEC (PCR) Not detected Stl E. histolytica PCR Not detected Stool Giardia Lamblia PCR Not detected Stool Salmonella PCR Not detected Stool Sapovirus (PCR) Not detected Stl P. shigelloides PCR Not detected Stl Shigella/EIEC PCR Not detected St Y.enterocolitica PCR Not detected Stool Vibrio (PCR) Not detected Stl Vibrio cholerae PCR Not detected Stl Norovirus GI/GII PCR Not detected Hepatitis C Antibody 09/23/24 19:39 Sodium Potassium Chloride Carbon Dioxide Anion Gap BUN Creatinine Estimated Creat Clear Estimated GFR Est GFR ( Amer) Glucose Calcium Total Bilirubin AST ALT Alkaline Phosphatase Total Protein Albumin Globulin Albumin/Globulin Ratio Urine Color Urine Appearance Urine pH Ur Specific [place] Urine Protein Urine Glucose (UA) Urine Ketones Urine Blood Urine Nitrate Urine Bilirubin Urine Urobilinogen Ur Leukocyte Esterase Urine RBC Urine WBC Ur Squamous Epith Cells Urine Bacteria Urine Mucus Stl Aeromonas (PCR) Stl C. cayetanensis PCR Stool Rotavirus (PCR) Stl Adenov F 40/41 PCR Stool Astrovirus (PCR) Stool Campylobacter PCR Stl C.difficile Tox PCR Stool Cryptosporidium PCR Stl E.coli Shiga Tox PCR Stool E coli O157 PCR Stl Enterotoxigenic E PCR Stool EPEC (PCR) Stool EAEC (PCR) Stl E. histolytica PCR Stool Giardia Lamblia PCR Stool Salmonella PCR Stool Sapovirus (PCR) Stl P. shigelloides PCR Stl Shigella/EIEC PCR St Y.enterocolitica PCR Stool Vibrio (PCR) Stl Vibrio cholerae PCR Stl Norovirus GI/GII PCR Hepatitis C Antibody Non reactive Preliminary micro results at discharge 09/23/24 20:05 Urine Culture - Preliminary Urine,Clean Catch Gram Negative Rods DS: Diagnosis Discharge Diagnosis (1) Partial obstruction of small intestine: Status: Acute Code(s): K56.600 - Partial intestinal obstruction, unspecified as to cause (2) TUNDE (acute kidney injury): Status: Acute Code(s): N17.9 - Acute kidney failure, unspecified (3) Transaminitis: Status: Acute Code(s): R74.01 - Elevation of levels of liver transaminase levels (4) Gastric lesion: Status: Acute Code(s): K31.9 - Disease of stomach and duodenum, unspecified (5) Hypertension: Status: Chronic Code(s): I10 - Essential (primary) hypertension Qualifiers: Hypertension type: primary hypertension Qualified Code(s): I10 - Essential (primary) hypertension (6) Mitral valve regurgitation: Status: Chronic Code(s): I34.0 - Nonrheumatic mitral (valve) insufficiency (7) Hyperlipidemia: Status: Chronic Code(s): E78.5 - Hyperlipidemia, unspecified Qualifiers: Hyperlipidemia type: mixed hyperlipidemia Qualified Code(s): E78.2 - Mixed hyperlipidemia (8) Gout: Status: Chronic Code(s): M10.9 - Gout, unspecified Qualifiers: Gout etiology: unspecified cause Gout site: unspecified site (9) Afib: Status: Chronic Code(s): I48.91 - Unspecified atrial fibrillation Qualifiers: Atrial fibrillation type: paroxysmal Qualified Code(s): I48.0 - Paroxysmal atrial fibrillation (10) GERD (gastroesophageal reflux disease): Status: Chronic Code(s): K21.9 - Gastro-esophageal reflux disease without esophagitis Qualifiers: Esophagitis presence: esophagitis presence not specified Qualified Code(s): K21.9 - Gastro-esophageal reflux disease without esophagitis Meds Home Medications and Allergies Home Medications ?Medication ?Instructions ?Recorded ?Confirmed ?Type rivaroxaban 20 mg tablet (Xarelto) 20 mg PO DAILY 01/29/23 09/24/24 History probenecid 500 mg tablet 500 mg PO BID 09/26/23 09/24/24 History sour stoddard extract 1,000 mg 1,000 mg PO DAILY 11/06/23 09/24/24 History capsule (Tart Stoddard Extract) diltiazem HCl 240 mg 240 mg PO DAILY #90 caps 04/10/24 09/24/24 Rx capsule,extended release 24 hr omeprazole 20 mg capsule,delayed 20 mg PO DAILY #90 caps 06/15/24 09/24/24 Rx release pitavastatin calcium 4 mg tablet 1 mg PO HS 09/24/24 09/24/24 History allopurinol 100 mg tablet See Rx Instructions .Route 09/28/24 Rx .COMPLEX #90 tabs New Prescriptions to Start Prescriptions: Allergies Allergy/AdvReac Type Severity Reaction Status Date / Time codeine Allergy Rash Verified 09/23/24 18:41 Discharge Plan Disposition Patient Disposition: Home, Self-Care Condition: Fair Follow up Plan Follow up with: Corinne Griffith APRN [Primary Care Provider] - 10/05/24 11:00 am Nathaniel Terrazas II, MD [Staff Physician] - Enter time for follow up Prescriptions/Medication Reconciliation: Continued Xarelto 20 mg tablet 20 mg PO DAILY Rx Instructions: must administer with evening meal probenecid 500 mg tablet 500 mg PO BID Rx Instructions: PATIENT STATES HE TAKES 1/2 TABLET ONCE DAILY Tart Stoddard Extract 1,000 mg capsule 1,000 mg PO DAILY omeprazole 20 mg capsule,delayed release(DR/EC) 20 mg PO DAILY Qty: 90 2RF diltiazem HCl 240 mg capsule,extended release 24hr 240 mg PO DAILY Qty: 90 2RF allopurinol 100 mg tablet See Rx Instructions .ROUTE .COMPLEX Qty: 90 0RF Dose Instruction: TAKE 1 TABLET BY MOUTH EVERY DAY Rx Instructions: TAKE 1 TABLET BY MOUTH EVERY DAY pitavastatin calcium 4 mg tablet 1 mg PO HS Patient Comments: TAKE 1/4 OF A TABLET BY MOUTH EVERY NIGHT AT BEDTIME Rx Instructions: TAKE 1/4 OF A TABLET BY MOUTH EVERY NIGHT AT BEDTIME Problem Reconciliation Problems Reviewed?: Yes Patient Discharge Instructions Patient Instructions: Low-Fiber/Low-Residue Diet, DI for Small Bowel Obstruction Print Language: Welsh Providers Primary Care Provider: Corinne Griffith Admit Provider: Yemi Campos Attending Provider: Yemi Campos
--- NOTE | 2024-09-28 13:55 | SW/DCPLANNER ---
patient stated that he isnt doing to good and that he has contacted his primary care provider and stated that he needs to be seen back into the ER. Patient stated that he doesnt want to be seen in the ER. I suggested that he try [facility].
--- NOTE | 2024-09-28 19:05 | CT_ITS ---
PROCEDURE INFORMATION: Exam: CT Abdomen And Pelvis With Contrast Exam date and time: 09/28/2024 8:08 PM Age: 79 years old Clinical indication: Pain; Other: Suspected sbo TECHNIQUE: Imaging protocol: Computed tomography of the abdomen and pelvis with contrast. Radiation optimization: All CT scans at this facility use at least one of these dose optimization techniques: automated exposure control; mA and/or kV adjustment per patient size (includes targeted exams where dose is matched to clinical indication); or iterative reconstruction. Contrast material: ISOVUE; Contrast volume: 75 ml; Contrast route: IV; COMPARISON: CT ANGIO ABDOMEN PELVIS 09/23/2024 8:11 PM FINDINGS: Lungs: Bibasilar atelectasis versus parenchymal scarring. Diaphragm: Small hiatal hernia Liver: Decreased density throughout the liver compatible with hepatic steatosis. Gallbladder and biliary ducts: Cholecystectomy Pancreas: Pancreatic atrophy Spleen: The spleen is unremarkable. Adrenal glands: Normal. No mass. Kidneys and ureters: Bilateral renal cysts. Perinephric stranding. Findings nonspecific and may reflect acute versus chronic inflammatory change. Stomach and bowel: Polypoid mass again demonstrated in the region of the antrum of the stomach. Persistent narrowing of the 1st portion of the duodenum. Progressive dilatation of proximal small bowel loops in. Transition zone demonstrated proximally in the left upper quadrant at the level of the kidneys as well as more distally. Distal loops of ileum as well as the colon are collapsed. Colonic diverticulosis. No evidence of diverticulitis. Appendix: No evidence of appendicitis. Intraperitoneal space: Unremarkable. No free air. No significant fluid collection. Vasculature: Unremarkable. No abdominal aortic aneurysm. Lymph nodes: Unremarkable. No enlarged lymph nodes. Urinary bladder: See Reproductive finding. Reproductive: Prostatic calcifications. Bladder collapsed Bones/joints: Lumbar spondylosis with multilevel disc degeneration. Soft tissues: Fat filled inguinal hernias. Other findings: Findings demonstrated on series 2 image number 55, 601 image number 28, series 2 image number 69 the, 601 number 26. IMPRESSION: 1. Findings compatible with small bowel obstruction. A closed loop obstruction could not be excluded. 2. A call has been placed to the referring physician at which time an addended report will be issued. 3. Polypoid mass in the region of the antrum of the stomach. Persistent narrowing of the 1st portion of the duodenum. Endoscopic evaluation recommended. COMMENTS: Consistent with the [employer] [employer]'s Incidental Findings Committee white paper (J Am Almita Radiol 2018): Any incidental renal lesion less than 1 cm or classified as too small to characterize, or any incidental cystic renal lesion characterized as simple-appearing, is likely benign. No follow-up imaging is recommended for these lesions per consensus recommendations based on imaging criteria.
--- NOTE | 2024-09-28 19:11 | HMH.ITSTN ---
RN to call when pt is ready for scan
[2024-09-28] MEDS: SODIUM CHLORIDE 0.9% 10ML SYR (RAD ONLY) 10 ML IV (20:24)
[2024-09-28] MEDS: IOPAMIDOL-370 (76%);100ML BOTTLE 75 ML IV (20:24)
== END 2024-09-25 16:18 | disposition home or self-care (01) ==
LOC: UTC 18:13 → ER 18:23 → 2ND 21:41
PROVIDERS: Student in an Organized Health Care Education/Training Program; Admitting Provider Internal Medicine Adolescent Medicine; Emergency Provider Emergency Medicine; PCP Nurse Practitioner Family; Visit Provider Internal Medicine Adolescent Medicine
DX: K56.600 Partial intestinal obstruction, unspecified as to cause (principal); N17.9 Acute kidney failure, unspecified; R74.01 Elevation of levels of liver transaminase levels; I10 Essential (primary) hypertension; I34.0 Nonrheumatic mitral (valve) insufficiency; E78.2 Mixed hyperlipidemia; M10.9 Gout, unspecified; I48.0 Paroxysmal atrial fibrillation; K21.9 Gastro-esophageal reflux disease without esophagitis; Z79.01 Long term (current) use of anticoagulants; Z79.899 Other long term (current) drug therapy; K31.7 Polyp of stomach and duodenum
CPT/HCPCS: 36415; 71275; 74021; 74174; 76705; 80053; 81001; 83605; 83690; 83735; 84100; 84484; 85025; 85610; 86803; 87086; 87088; 87186; 87389; 87507; 87636; 93005; 99285; G0378; J2270; J2405; J7030; Q9967; S0028

== ENCOUNTER 2024-09-28 15:49 | Inpatient (IN) | payer MEDICARE, SELFPAY ==
[2024-09-28 15:50] VITALS: BP 116/77; PULSE 67; RESP 18; O2SAT 100; BMI 28.8
[2024-09-28] MEDS: 0.9 % SODIUM CHLORIDE 1000ML 1,000 ML 999 ML IV (16:18)
[2024-09-28] MEDS: ONDANSETRON 4MG/2ML VIAL 4 MG IV (16:18)
--- NOTE | 2024-09-28 16:23 | ED_ITS ---
Discharge Plan Disposition Patient Disposition: Admitted Chief Complaint: Nausea/Vomiting/Diarrhea Prescriptions Prescriptions: No Action Xarelto 20 mg tablet 20 mg PO DAILY Rx Instructions: must administer with evening meal probenecid 500 mg tablet 500 mg PO BID Rx Instructions: PATIENT STATES HE TAKES 1/2 TABLET ONCE DAILY Tart Stoddard Extract 1,000 mg capsule 1,000 mg PO DAILY omeprazole 20 mg capsule,delayed release(DR/EC) 20 mg PO DAILY Qty: 90 2RF diltiazem HCl 240 mg capsule,extended release 24hr 240 mg PO DAILY Qty: 90 2RF allopurinol 100 mg tablet See Rx Instructions .ROUTE .COMPLEX Qty: 90 0RF Dose Instruction: TAKE 1 TABLET BY MOUTH EVERY DAY Rx Instructions: TAKE 1 TABLET BY MOUTH EVERY DAY pitavastatin calcium 4 mg tablet 1 mg PO HS Patient Comments: TAKE 1/4 OF A TABLET BY MOUTH EVERY NIGHT AT BEDTIME Rx Instructions: TAKE 1/4 OF A TABLET BY MOUTH EVERY NIGHT AT BEDTIME Referrals Follow up/Referrals: Corinne Griffith APRN [Primary Care Provider] - See instructions Clinical Impressions Clinical Impression: Intractable nausea and vomiting Instructions Patient Instructions: DI for Diarrhea and Traveler's Diarrhea -- Adult, DI for Diarrhea and Traveler's Diarrhea -- Child, DI for Nausea -- Adult, DI for Nausea -- Child Print Language Print Language: Syriac Discharge ED Provider: Ralph Borrero General Adult HPI General Chief complaint: Nausea/Vomiting/Diarrhea Stated complaint: Stomach pain Time Seen by Provider: 09/28/24 16:00 Mode of Arrival: Ambulatory Source of Information: Patient Limitations: No Limitations Description of Symptoms (Recalled from ER Triage Doc. by RN): c/o n/v for 2 days. History of Present Illness HPI narrative: Please note that above description of symptoms, in this electronic medical record under categorization of recalled from ER triage doctor by RN are reflective of an initial nursing assessment, however, is not reflective of my full history and physical exam that was personally taken and clarified. Consequentially, this preceding description of symptoms, which may include the patient's categorized chief complaint in the EMR, do not reflect my personal clinical impression, and the ultimate description of history of present illness and patient stated complaints should be deferred to this section of the note. Unless stated otherwise or congruent with this section of the note, additional signs, symptoms, or incongruence should be interpreted as inaccurate with my clinical impression. Related Data Home Medications ?Medication ?Instructions ?Recorded ?Confirmed rivaroxaban 20 mg tablet (Xarelto) 20 mg PO DAILY 01/29/23 09/24/24 probenecid 500 mg tablet 500 mg PO BID 09/26/23 09/24/24 sour stoddard extract 1,000 mg 1,000 mg PO DAILY 11/06/23 09/24/24 capsule (Tart Stoddard Extract) pitavastatin calcium 4 mg tablet 1 mg PO HS 09/24/24 09/24/24 Previous Rx's ?Medication ?Instructions ?Recorded diltiazem HCl 240 mg 240 mg PO DAILY #90 caps 04/10/24 capsule,extended release 24 hr omeprazole 20 mg capsule,delayed 20 mg PO DAILY #90 caps 06/15/24 release allopurinol 100 mg tablet See Rx Instructions .Route 09/28/24 .COMPLEX #90 tabs Allergies Allergy/AdvReac Type Severity Reaction Status Date / Time codeine Allergy Rash Verified 09/23/24 18:41 [facility] Disclaimer: The information contained in this section may have been updated after the patient was seen, as this information can be updated by other users. Medical History (Updated 09/28/24 @ 19:31 by Ralph Borrero MD) Brain bleed Seizure Degenerative disc disease, lumbar Lumbar radiculopathy Ligamentum flavum hypertrophy Hyperlipidemia GERD (gastroesophageal reflux disease) Afib Gout Surgical History History of lumbar surgery Previous back surgery H/O shoulder surgery History of cholecystectomy History of appendectomy Family History Stroke Father Social History (Updated 09/23/24 @ 23:37 by Becky Quiroz RN) Smoking Status: Former smoker years smoked: 12 alcohol intake: current alcohol intake frequency: a few times a month substance use type: denies use current occupational status: retired Travel in the last 8 weeks: None household members: none housing: house Other Medical History Have you received the Flu Vaccine for this season: No Have you received the Pneumonia Vaccine: No ROS Obtained: Yes All systems reviewed & no additional complaints except as documented Physical Exam General General appearance: alert Head Head exam: atraumatic and normocephalic Eye Eye exam: Present normal appearance, PERRL and EOMI Neck Neck exam: Present normal inspection, full ROM and trachea midline Respiratory Respiratory exam: Absent respiratory distress, wheezes, stridor, accessory muscle use or prolonged expiratory phase Cardiovascular Cardiovascular exam: Present other (Pulses equal symmetric in upper and lower extremities) Abdominal Exam Abdominal exam: Present soft and tenderness; Absent distention, guarding, rebound, rigidity or pulsatile mass Abdominal tenderness: Present epigastrium Extremities Exam Extremities exam: Absent edema Neurological Exam Neurological exam: Present alert, oriented X3 and CN II-XII intact; Absent motor sensory deficit Skin Skin exam: Present warm and dry; Absent diaphoresis or erythema Medical Decision Making Medical Records Medical records reviewed: Yes I reviewed the patient's medical records. Screening: Per USPSTF and CDC recommendations, given the prevalence of disease in our region, it is our hospital?s policy to screen for HIV and viral Hepatitis for all patients aged 18 and over and those with ongoing risk factors. [place] Inquiry Pt receiving controlled substance: No [place] was queried for this patient: No Vital Signs: 09/28/24 15:50 Pulse Rate [Left Radial] 67 Respiratory Rate 18 Blood Pressure [Right Arm] 116/77 Blood Pressure Mean [Right Arm] 90 Blood Pressure Source [Right Arm] Automatic Cuff 02 Sat by Pulse Oximetry 100 Oxygen Delivery Method Room Air Lab Data Lab Results 09/28/24 16:55: VBG pH 7.40, VBG pCO2 32.6 L, VBG pO2 59.0 H, VBG HCO3 19.7 L, V BG Total CO2 20.7 L, VBG O2 Saturation 90.4 H, VBG Base Excess -5.1 L, VBG Lactic Acid 2.6 H 09/28/24 17:07: WBC 8.8, RBC 5.70, Hgb 16.8, Hct 48.4, MCV 84.9, MCH 29.5, MCHC 34.8, RDW 14.6, Plt Count 209, MPV 8.5, Neut % (Auto) 80.3 H, Lymph % (Auto) 14.1, Mcdowell % (Auto) 4.7, Eos % (Auto) 0.5, Baso % (Auto) 0.4, Neut # (Auto) 7.0, Lymph # (Auto) 1.2, Mcdowell # (Auto) 0.4, Eos # (Auto) 0.1, Baso # (Auto) 0.0, Sodium 139, Potassium 3.6, Chloride 106, Carbon Dioxide 22, Anion Gap 14.6, BUN 20, Creatinine 1.50 H, Estimated Creat Clear 57, Estimated GFR 45 L, Est GFR ( Amer) 55 L, Glucose 156 H, Calcium 9.1, Total Bilirubin 1.1, AST 33, ALT 62, Alkaline Phosphatase 117, Troponin I < 0.01, Total Protein 7.0, Albumin 4.0, Globulin 3.0, Albumin/Globulin Ratio 1.3, Lipase 210 09/28/24 17:07 09/28/24 17:07 Orders (Tests/Meds): ED MEDICATIONS Discontinued Medications Generic Name Dose Route Start Last Admin Trade Name Freq PRN Reason Stop Dose Admin Hydromorphone HCl 0.5 mg 09/28/24 17:32 09/28/24 17:51 Hydromorphone 2mg/Ml Syringe IV 09/28/24 17:33 0.5 mg ONCE ONE Administration Sodium Chloride 1,000 mls @ 999 mls/hr 09/28/24 16:15 09/28/24 16:18 Sod Chlor 0.9% 1000ml Bag IV 09/28/24 17:15 999 mls/hr .Q1H1M BRENNA Administration Ketorolac Tromethamine 15 mg 09/28/24 16:19 09/28/24 16:51 Ketorolac 30mg/Ml Vial IV 09/28/24 16:20 15 mg ONCE ONE Administration Morphine Sulfate 4 mg 09/28/24 16:19 09/28/24 16:50 Morphine 4mg/Ml Syringe IV 09/28/24 16:20 4 mg ONCE ONE Administration Ondansetron HCl 4 mg 09/28/24 16:12 09/28/24 16:18 Ondansetron 4mg/2ml Vial IV 09/28/24 16:13 4 mg ONCE ONE Administration Ondansetron HCl 4 mg 09/28/24 16:19 09/28/24 16:51 Ondansetron 4mg/2ml Vial IV 09/28/24 16:20 Not Given ONCE ONE Promethazine HCl 12.5 mg 09/28/24 17:32 09/28/24 17:50 Promethazine Hcl 25mg/Ml 1ml Vial IV 09/28/24 17:33 12.5 mg ONCE ONE Administration Sodium Chloride 25 ml 09/28/24 17:32 09/28/24 17:50 Sodium Chloride 0.9% 25ml Bag IV 09/28/24 17:33 25 ml ONCE ONE Administration ORDERS Category Date Time Status Complete Blood Count Auto Diff Stat Lab 09/28/24 17:07 Completed Comprehensive Metabolic Panel Stat Lab 09/28/24 17:07 Completed Lipase Stat Lab 09/28/24 17:07 Completed Trop I [Troponin I] Stat Lab 09/28/24 17:07 Completed Troponin I Q3H Lab 09/28/24 20:00 Ordered Troponin I Q3H Lab 09/28/24 23:00 Ordered Venous Blood Gas Stat RT 09/28/24 16:55 Completed Medical Decision Narrative: 79 male history of hypertension, anemia, gout, A-fib on Xarelto, CAD, diagnosis of E. coli gastroenteritis presenting with vomiting. Patient states that he was just discharged from the hospital. Came back today because he has been unable to tolerate any solid or liquid intake. Epigastric abdominal pain that is moderate in intensity when vomiting, largely absent when not vomiting. No blood in his vomit. No diarrhea. Has not noticed anything that makes it better, but has not been able to keep anything down to help with the pain including medicines. History was obtained via conversation with patient. On arrival, patient hemodynamically stable, alert, oriented x4, appropriate, GCS 15, moving all extremities spontaneously, pupils equal and reactive to light. Full physical exam performed and significant for uncomfortable appearing male in no acute distress. He is intermittently retching. Vomiting nonbloody, nonbilious vomit. Abdomen is soft, distended, tender primarily in epigastrium. Minimal tenderness on my exam, no evidence of peritonitis. No flank tenderness. No overlying skin changes. Differential includes gastroenteritis, pancreatitis, atypical ACS, obstruction, among others. Patient placed on continuous cardiac monitoring and continuous pulse ox with initial blood pressure 116/77, heart rate 67, saturation 100% on room air. Independent interpretation of EKG shows A-fib [address] or T wave changes concerning for acute ischemia. QRS 92, QTc 420.. Patient was given Zofran, fluids, morphine for symptomatic management and correction of underlying abnormalities. Patient's having pain, given more narcotic shortly thereafter. Workup independently interpreted and significant for nonactionable CBC. Chemistry with UTNDE creatinine 1.5. Lipase negative. VBG with compensated metabolic acidosis pH 7.4, bicarb low at 19.7, CO2 low at 32.6. Lactate 2.6 likely from dehydration and vomiting. CT scan of the abdomen and pelvis was considered, but not deemed necessary. Recent CT, no pain in the absence of vomiting and nonperitoneal ache abdomen. I feel radiation risks outweigh likely benefit. On reevaluation, patient still feeling sick unable to tolerate p.o. Interactive discussion had with hospital medicine, patient to be admitted for further definitive management in the setting of intractable nausea and vomiting. Director Of Software Development disclaimer Much of this encounter note is an electronic business resiliency manager spoken language to printed text. Electronic business resiliency manager of the spoken language may permit errors. Although I have reviewed the note, some errors may still exist. Critical Care Critical Care Time Critical Care Time: No
[2024-09-28] MEDS: MORPHINE 4MG/ML SYRINGE 4 MG IV (16:50)
[2024-09-28] MEDS: KETOROLAC 30MG/ML VIAL 15 MG IV (16:51)
[2024-09-28 17:22] LABS: Basophils % 0.4 % (0.1-2.0); Chloride 106 mmol/L (98-107); Eosinophils # 0.1 K/mm3 (0.0-0.4); Eosinophils % 0.5 % (0.1-12.0); Hematocrit 48.4 % (42.0-52.0); Hemoglobin 16.8 g/dL (14.1-18.0); Lymphocytes # 1.2 K/mm3 (0.7-4.5); Lymphocytes % 14.1 % (10-50); Mean Corpuscular HGB Conc 34.8 g/dL (31.8-35.4); Mean Corpuscular Hemoglobin 29.5 pg (27.0-31.2); Mean Corpuscular Volume 84.9 fl (80-94); Mean Platelet Volume 8.5 fl (7.4-10.4); Monocytes # 0.4 K/mm3 (0.1-1.0); Monocytes % 4.7 % (1.7-9.3); Neutrophils % 80.3 % (37.0-80.0); Platelet Count 209 K/mm3 (142-424); Potassium 3.6 mmoL/L (3.5-5.1); Red Cell Distribution Width 14.6 % (11.5-17.5); Sodium 139 mmol/L (136-145); White Blood Count 8.8 K/mm3 (4.8-10.8)
[2024-09-28 17:25] LABS: Alanine Aminotransferase 62 U/L (12-78); Albumin/Globulin Ratio 1.3 (1.1-1.8); Alkaline Phosphatase 117 U/L (38-126); Anion Gap 14.6 mEq/L (5-15); Aspartate Amino Transferase 33 U/L (17-59); Bilirubin,Total 1.1 mg/dl (0.2-1.3); Blood Urea Nitrogen 20 mg/dl (9-20); Carbon Dioxide 22 mmol/L (22.0-30.0); Creatinine Clearance Estimated 57 mL/min (50-200); Estimated Glomerular Filt Rate 45 ml/min (>60); GFR (African American) 55 ML/MIN (>60)
[2024-09-28 17:26] LABS: Calcium 9.1 mg/dl (8.4-10.2); Glucose 156 mg/dl (74-100); Lipase 210 U/L (23-300)
--- NOTE | 2024-09-28 17:38 | ECG_ITS ---
APPROVED REPORT Exam: Resting ECG HR:63 bpm ECG Measurements Heart Rate 63 AXES QRSd 92 QRS 87 QT 413 T 46 QTc 420 Conclusion ATRIAL FIBRILLATION NONSPECIFIC ST & T-WAVE ABNORMALITY ABNORMAL RHYTHM ECG Electronically signed by : TOSHA STEVE, 10/01/2024 07:40:54
[2024-09-28] MEDS: SODIUM CHLORIDE 0.9% 25ML BAG 25 ML IV (17:50)
[2024-09-28] MEDS: PROMETHAZINE HCL 25MG/ML 1ML VIAL 12.5 MG IV (17:50)
[2024-09-28] MEDS: HYDROMORPHONE 2MG/ML SYRINGE 0.5 MG IV (17:51)
[2024-09-28 17:55] LABS: Lactate Venous 2.6 mmol/L (0.4-2.0); VBG Base Excess -5.1 mmol/L (-2.4-2.3); VBG HCO3 19.7 mmol/L (23-30); VBG Oxygen Saturation 90.4 % (50-70); VBG PCO2 32.6 mmol/L (35-51); VBG Total CO2 20.7 mmol/L (23-27)
[2024-09-28 18:06] LABS: Troponin I < 0.01 ng/ml (0.00-0.034)
--- NOTE | 2024-09-28 19:05 | CT_ITS ---
ADDENDUM Addendum created by Gris Montes MD on 09/28/2024 9:39:40 PM EST: Findings discussed with Dr. Jarad Jimenez on this date at approximately 8:38 p.m. central time. Initial report created on 09/28/2024 9:35:15 PM EST: PROCEDURE INFORMATION: Exam: CT Abdomen And Pelvis With Contrast Exam date and time: 09/28/2024 8:08 PM Age: 79 years old Clinical indication: Pain; Other: Suspected sbo TECHNIQUE: Imaging protocol: Computed tomography of the abdomen and pelvis with contrast. Radiation optimization: All CT scans at this facility use at least one of these dose optimization techniques: automated exposure control; mA and/or kV adjustment per patient size (includes targeted exams where dose is matched to clinical indication); or iterative reconstruction. Contrast material: ISOVUE; Contrast volume: 75 ml; Contrast route: IV; COMPARISON: CT ANGIO ABDOMEN PELVIS 09/23/2024 8:11 PM FINDINGS: Lungs: Bibasilar atelectasis versus parenchymal scarring. Diaphragm: Small hiatal hernia Liver: Decreased density throughout the liver compatible with hepatic steatosis. Gallbladder and biliary ducts: Cholecystectomy Pancreas: Pancreatic atrophy Spleen: The spleen is unremarkable. Adrenal glands: Normal. No mass. Kidneys and ureters: Bilateral renal cysts. Perinephric stranding. Findings nonspecific and may reflect acute versus chronic inflammatory change. Stomach and bowel: Polypoid mass again demonstrated in the region of the antrum of the stomach. Persistent narrowing of the 1st portion of the duodenum. Progressive dilatation of proximal small bowel loops in. Transition zone demonstrated proximally in the left upper quadrant at the level of the kidneys as well as more distally. Distal loops of ileum as well as the colon are collapsed. Colonic diverticulosis. No evidence of diverticulitis. Appendix: No evidence of appendicitis. Intraperitoneal space: Unremarkable. No free air. No significant fluid collection. Vasculature: Unremarkable. No abdominal aortic aneurysm. Lymph nodes: Unremarkable. No enlarged lymph nodes. Urinary bladder: See Reproductive finding. Reproductive: Prostatic calcifications. Bladder collapsed Bones/joints: Lumbar spondylosis with multilevel disc degeneration. Soft tissues: Fat filled inguinal hernias. Other findings: Findings demonstrated on series 2 image number 55, 601 image number 28, series 2 image number 69 the, 601 number 26. IMPRESSION: 1. Findings compatible with small bowel obstruction. A closed loop obstruction could not be excluded. 2. A call has been placed to the referring physician at which time an addended report will be issued. 3. Polypoid mass in the region of the antrum of the stomach. Persistent narrowing of the 1st portion of the duodenum. Endoscopic evaluation recommended. COMMENTS: Consistent with the [employer] [place] [employer]'s Incidental Findings Committee white paper (J Am Almita Radiol 2018): Any incidental renal lesion less than 1 cm or classified as too small to characterize, or any incidental cystic renal lesion characterized as simple-appearing, is likely benign. No follow-up imaging is recommended for these lesions per consensus recommendations based on DD/ PROCEDURE INFORMATION: Exam: CT Abdomen And Pelvis With Contrast Exam date and time: 09/28/2024 8:08 PM Age: 79 years old Clinical indication: Pain; Other: Suspected sbo TECHNIQUE: Imaging protocol: Computed tomography of the abdomen and pelvis with contrast. Radiation optimization: All CT scans at this facility use at least one of these dose optimization techniques: automated exposure control; mA and/or kV adjustment per patient size (includes targeted exams where dose is matched to clinical indication); or iterative reconstruction. Contrast material: ISOVUE; Contrast volume: 75 ml; Contrast route: IV; COMPARISON: CT ANGIO ABDOMEN PELVIS 09/23/2024 8:11 PM FINDINGS: Lungs: Bibasilar atelectasis versus parenchymal scarring. Diaphragm: Small hiatal hernia Liver: Decreased density throughout the liver compatible with hepatic steatosis. Gallbladder and biliary ducts: Cholecystectomy Pancreas: Pancreatic atrophy Spleen: The spleen is unremarkable. Adrenal glands: Normal. No mass. Kidneys and ureters: Bilateral renal cysts. Perinephric stranding. Findings nonspecific and may reflect acute versus chronic inflammatory change. Stomach and bowel: Polypoid mass again demonstrated in the region of the antrum of the stomach. Persistent narrowing of the 1st portion of the duodenum. Progressive dilatation of proximal small bowel loops in. Transition zone demonstrated proximally in the left upper quadrant at the level of the kidneys as well as more distally. Distal loops of ileum as well as the colon are collapsed. Colonic diverticulosis. No evidence of diverticulitis. Appendix: No evidence of appendicitis. Intraperitoneal space: Unremarkable. No free air. No significant fluid collection. Vasculature: Unremarkable. No abdominal aortic aneurysm. Lymph nodes: Unremarkable. No enlarged lymph nodes. Urinary bladder: See Reproductive finding. Reproductive: Prostatic calcifications. Bladder collapsed Bones/joints: Lumbar spondylosis with multilevel disc degeneration. Soft tissues: Fat filled inguinal hernias. Other findings: Findings demonstrated on series 2 image number 55, 601 image number 28, series 2 image number 69 the, 601 number 26. IMPRESSION: 1. Findings compatible with small bowel obstruction. A closed loop obstruction could not be excluded. 2. A call has been placed to the referring physician at which time an addended report will be issued. 3. Polypoid mass in the region of the antrum of the stomach. Persistent narrowing of the 1st portion of the duodenum. Endoscopic evaluation recommended. COMMENTS: Consistent with the [employer] [place] [employer]'s Incidental Findings Committee white paper (J Am Almita Radiol 2018): Any incidental renal lesion less than 1 cm or classified as too small to characterize, or any incidental cystic renal lesion characterized as simple-appearing, is likely benign. No follow-up imaging is recommended for these lesions per consensus recommendations based on imaging criteria. [facility] [id number] [facility]
[2024-09-28] MEDS: SODIUM CHLORIDE 0.9% 10ML VIAL 8 ML IV (19:54)
[2024-09-28] MEDS: FAMOTIDINE 20MG/2ML VIAL 20 MG IV (19:54)
[2024-09-28] MEDS: IOPAMIDOL-370 (76%);100ML BOTTLE 75 ML IV (20:23)
[2024-09-28] MEDS: SODIUM CHLORIDE 0.9% 10ML SYR (RAD ONLY) 10 ML IV (20:24)
--- NOTE | 2024-09-28 20:26 | PC.NURSE ---
report called to gilma yost
[2024-09-28 20:27] VITALS: PULSE 82; RESP 18; O2SAT 93
[2024-09-28 20:36] VITALS: BP 161/93; PULSE 82; RESP 20; TEMP 36.8; O2SAT 98
--- NOTE | 2024-09-28 20:38 | PC.NURSE ---
Patient arrived to floor via wheelchair from ED at 20:38.
[2024-09-28 20:43] VITALS: BP 138/80; PULSE 72; RESP 18; TEMP 36.2; O2SAT 93; BMI 27.1
--- NOTE | 2024-09-28 21:19 | PC.NURSE ---
Addendum entered by Lesley Marti RN 09/29/24 04:33: Patient has allowed previous lab draw collections. Original Note: Lab informed me at this time that the patient refused to have his blood drawn (troponin lab).
[2024-09-28 21:25] LABS: Reflex Lactic Add Lactic Reflex
--- NOTE | 2024-09-28 21:46 | PC.NURSE ---
Admission and home medication reconciliation completed. Patient's home medications are locked in the patient's room.
--- NOTE | 2024-09-28 21:54 | PC.NURSE ---
Daren Rand RN (in ER) called at 21:51 requesting information to be passed along for the hospitalist (Gerard HENRY). She stated that upon taking a urine sample from the patient while in the ER, his urine was noticed to be very dark. She said that the ER MD recommended starting fluid infusions for the patient. Gerard HENRY was paged at this time to pass this information along. He said that he will be up to see the patient soon.
[2024-09-28 23:08] LABS: Lactic Acid Follow Up (RFLX 1) 0.9 mmol/L (0.7-2.1)
--- NOTE | 2024-09-28 23:23 | P.HP_ITS ---
History of Present Illness *Admission Date: 09/28/24 *Reason for visit:: Returned irretractable vomiting with abdominal pain *History of present illness: Patient was just recently released from the hospital after being in for the same condition. Was noted he had a partial small bowel obstruction was noted, he saw Dr. Hassan and was followed. Patient then improved started having stools being able to eat and went home. Patient noted he had a very good bowel movement on Saturday but since then has had nothing but watery diarrhea, . Also CT scan noted small bowel obstruction probable. Labs remain normal lipase amylase normal. Consult has been put in for general surgery again . And after conferring with the ER doctor going over the present labs and CT scan will except admission and place him up on the floor for further evaluation and consult. Presently not vomiting but only taking a few ice chips. . [facility] Disclaimer: The information contained in this section may have been updated after the patient was seen, as this information can be updated by other users. Medical History (Updated 09/29/24 @ 10:53 by Eron Mckinley MD) Hyperglycemia Numbness and tingling of left leg Lumbar spinal stenosis Chronic low back pain Brain bleed Seizure Degenerative disc disease, lumbar Lumbar radiculopathy Ligamentum flavum hypertrophy Hyperlipidemia GERD (gastroesophageal reflux disease) Afib Gout Surgical History History of lumbar surgery Previous back surgery H/O shoulder surgery History of cholecystectomy History of appendectomy Family History Stroke Father Social History (Updated 09/28/24 @ 21:38 by Lesley Marti RN) Smoking Status: Former smoker years smoked: 12 alcohol intake: current alcohol intake frequency: a few times a month substance use type: denies use current occupational status: retired Travel in the last 8 weeks: None household members: none housing: house Other Medical History Have you received the Flu Vaccine for this season: No Have you received the Pneumonia Vaccine: No Review of Systems Review of Systems Review of systems:: pertinent systems reviewed and negative unless documented below Constitutional Constitutional: Reports as per HPI Eyes Eyes: Reports as per HPI ENT Ears, Nose, Mouth, and Throat: Reports as per HPI *Cardiovascular Cardiovascular: Reports as per HPI *Respiratory Respiratory: Reports as per HPI *Gastrointestinal Gastrointestinal: Reports as per HPI, Reports change in stool character, Reports cramping, Reports loose stools, Reports nausea and Reports vomiting Comments: Recently released from hospital for small bowel obstruction that resolved *Genitourinary Genitourinary: Reports as per HPI *Musculoskeletal Musculoskeletal: Reports as per HPI Integumentary/Breasts Skin/Breast: Reports as per HPI *Neurologic Neurologic: Reports as per HPI Psychiatric Psychiatric: Reports as per HPI Endocrine Endocrine: Reports as per HPI Hematologic/Lymphatic Hematologic/Lymphatic: Reports as per HPI Allergic/Immunologic Allergic/Immunologic: Reports as per HPI Meds Home Medications and Allergies Home Medications ?Medication ?Instructions ?Recorded ?Confirmed ?Type rivaroxaban 20 mg tablet (Xarelto) 20 mg PO DAILY 01/29/23 09/29/24 History probenecid 500 mg tablet 250 mg PO DAILY 09/26/23 09/29/24 History sour stoddard extract 1,000 mg 1,000 mg PO DAILY 11/06/23 09/29/24 History capsule (Tart Stoddard Extract) diltiazem HCl 240 mg 240 mg PO DAILY #90 caps 04/10/24 09/29/24 Rx capsule,extended release 24 hr omeprazole 20 mg capsule,delayed 20 mg PO DAILY #90 caps 06/15/24 09/29/24 Rx release pitavastatin calcium 4 mg tablet 1 mg PO HS 09/24/24 09/29/24 History allopurinol 100 mg tablet 100 mg PO DAILY 09/28/24 09/29/24 History New Prescriptions to Start Prescriptions: Allergies Allergy/AdvReac Type Severity Reaction Status Date / Time codeine Allergy Rash Verified 09/23/24 18:41 Exam Data for Last 24 hours Vital signs and Labs for Last 24 Hours: Temp Pulse Resp BP Pulse Ox O2 Del Method 97.2 F L 72 18 138/80 93 L Room Air 09/28/24 20:43 09/28/24 20:43 09/28/24 20:43 09/28/24 20:43 09/28/24 20:43 09/28/24 21:00 Laboratory Results - last 24 hr 09/28/24 16:55: VBG pH 7.40, VBG pCO2 32.6 L, VBG pO2 59.0 H, VBG HCO3 19.7 L, VBG Total CO2 20.7 L, VBG O2 Saturation 90.4 H, VBG Base Excess -5.1 L, VBG Lactic Acid 2.6 H 09/28/24 17:07: WBC 8.8, RBC 5.70, Hgb 16.8, Hct 48.4, MCV 84.9, MCH 29.5, MCHC 34.8, RDW 14.6, Plt Count 209, MPV 8.5, Neut % (Auto) 80.3 H, Lymph % (Auto) 14.1, [place] % (Auto) 4.7, Eos % (Auto) 0.5, Baso % (Auto) 0.4, Neut # (Auto) 7.0, Lymph # (Auto) 1.2, [place] # (Auto) 0.4, Eos # (Auto) 0.1, Baso # (Auto) 0.0, Sodium 139, Potassium 3.6, Chloride 106, Carbon Dioxide 22, Anion Gap 14.6, BUN 20, Creatinine 1.50 H, Estimated Creat Clear 57, Estimated GFR 45 L, Est GFR ( Amer) 55 L, Glucose 156 H, Calcium 9.1, Total Bilirubin 1.1, AST 33, ALT 62, Alkaline Phosphatase 117, Troponin I < 0.01, Total Protein 7.0, Albumin 4.0, Globulin 3.0, Albumin/Globulin Ratio 1.3, Lipase 210 09/28/24 22:30: Lactate 0.9 I & O for Last 24 hours: Intake & Output 09/26/24 09/27/24 09/28/24 09/29/24 05:59 05:59 05:59 05:59 Weight 206 lb 1.6 oz Radiology Reports for the Last 24 Hours: Reviewed the last CT scan of the abdomen it does show a probable small bowel partial obstruction in the proximal duodenum air-fluid levels in the rest of the bowel, reviewed the other imaging that was done from the last admission. Noted a polypoid type formation in the stomach. And some minor changes to the duodenum Constitutional Constitutional: mild distress Comments: Patient feels good when he is not throwing up *Routine HEENT Exam Head: Present normocephalic and atraumatic Eye: Present EOMI and PERRL ENT: Present mucous membranes moist Comments: Has been eating ice chips *Routine Neck Exam Neck: Present supple and full ROM Routine Chest/Breast/Axilla Exam Comments: No tenderness of the chest wall equal expansion on respiration *Routine Respiratory Exam Respiratory: Present CTA bilaterally, normal respiratory effort, able to speak in complete sentences and symmetric chest movement *Routine Cardiovascular Exam Cardiovascular: Present RRR Comments: History of A-fib *Routine Abdominal Exam Abdominal: Present soft and normoactive bowel sounds Comments: Got around obese abdomen but there was no tenderness upon palpation, bowel sound s relatively normal you can hear definite gurgling going on *Routine Rectal Exam Rectal:: deferred *Routine Genitalia Exam Genitalia:: deferred *Routine Extremities Exam Extremities: Present full ROM and pulses intact Routine Back/Spine/Pelvis Exam Back/Spine: Present full ROM Comments: Patient able to walk and gets up by himself. I have examining him here now in bed he is able to turn each direction without any sign of back pain *Routine Skin Exam Skin: Present intact and warm *Routine Neurological Exam Neurological: Present alert, oriented X3, vision grossly intact, hearing grossly intact and normal speech Routine Psychiatric Exam Psychiatric: Present normal affect, normal thought process, good insight and good judgment Comments: Patient expressed to me that he is 79 years old that he would never except any type of major surgery, he says he is too old to have that kind of stuff done, was receptive to the fact that when the general surgeon sees him he would be able to express that to him and make a plan with the general surgeon depending on what they found if for any reason they decided to do an upper endoscopy. H&P: Result Impressions 1. Recurrent small bowel obstruction 2. Gastric lesion on CT scan 3. Nausea vomiting with diarrhea 4. Acute kidney injury related probably to dehydration 5, history of A-fib 6. History of gout 7. And history of GERD Imaging and Cardiology CT scan - abdomen: Status: image reviewed by me Additional comments: Air and fluid levels throughout a large portion of the intestines in the abdom en. Possible small bowel obstruction in the proximal duodenum Assessment and Plan *Assessment and plan (1) Intractable nausea and vomiting: Status: Acute Category: Medical Code(s): R11.2 - Nausea with vomiting, unspecified (2) Afib: Status: Chronic Qualifiers: Atrial fibrillation type: paroxysmal Qualified Code(s): I48.0 - Paroxysmal atrial fibrillation Category: Medical Code(s): I48.91 - Unspecified atrial fibrillation (3) GERD (gastroesophageal reflux disease): Status: Chronic Qualifiers: Esophagitis presence: esophagitis presence not specified Qualified Code(s): K21.9 - Gastro-esophageal reflux disease without esophagitis Category: Medical Code(s): K21.9 - Gastro-esophageal reflux disease without esophagitis (4) Gastric lesion: Status: Acute Category: Medical Code(s): K31.9 - Disease of stomach and duodenum, unspecified (5) TUNDE (acute kidney injury): Status: Resolved Category: Medical Code(s): N17.9 - Acute kidney failure, unspecified (6) Partial obstruction of small intestine: Status: Resolved Category: Medical Code(s): K56.600 - Partial intestinal obstruction, unspecified as to cause Plan 79yo M with nausea vomiting and diarrhea. Presents with similar symptoms and recurrence of nausea and vomiting after last admission. Discussed case with ER physician, given concern for partial small bowel obstruction on imaging again and intractable nausea and vomiting, request admission for further management. Medicine agreed to admit. Problems addressed as follows: Partial SBO - CT reviewed personally, has gaseous distention of small bowel, no clear transition point. Concern for partial obstruction. Given his preceding diarrhea, nausea vomiting, suspect infectious. -Positive for E. coli last admission. Surgery consulted to evaluate in the morning. -At last visit, recommended endoscopic evaluation in the near future for gastric lesion. Outpatient follow-up had been made during previous admission for EGD. - Continue Zofran 4 mg IV every 8 hours as needed -White count normal at 8, hemoglobin 16, repeat CBC, CMP, magnesium ordered for the morning. Acute kidney injury - Cr elevated at 1.5, above baseline of 1. Improved from 1.8 to 1.0 this morning after IV fluids. - Liver enzymes appear to have normalized. Bilirubin 1.1, AST 33, ALT 62, alk phos 117. Lipase normal at 210. Gastric polyp/lesion GERD -On omeprazole, having increased symptoms with his vomiting. Initiate famotidine 20 mg IV twice daily. - CT personally reviewed, shows almost 2 cm lesion in his stomach concerning for polyp. Would benefit from outpatient GI follow-up and EGD for more definitive workup and diagnosis A-fib Chronic anticoagulation Hyperlipidemia Hypertension Mitral valve regurgitation -Follows with cardiology in [place]. On Xarelto 20 daily and, diltiazem 240 mg extended daily for rate/Blood pressure control, and pitavastatin 4 mg daily for cholesterol -Rate controlled at this time. Continue oral diltiazem. -Hold anticoagulation for possible surgery if needed. Gout: Hold allopurinol and probenecid in the setting of n.p.o. DNR N.p.o. Holding anticoagulation, last dose of Xarelto morning of 09/23 Rounded on patient after nurse practitioner. Personally examined and interviewed patient. Agree with exam findings and care plan as documented.
[2024-09-28 23:38] LABS: Troponin I < 0.01 ng/ml (0.00-0.034)
[2024-09-28] MEDS: 0.9 % SODIUM CHLORIDE 1000ML 1,000 ML 100 ML IV (23:39)
[2024-09-29 02:31] LABS: Troponin I < 0.01 ng/ml (0.00-0.034)
[2024-09-29 04:00] VITALS: BP 132/80; PULSE 67; RESP 16; TEMP 36.4; O2SAT 96; BMI 27.3
--- NOTE | 2024-09-29 04:33 | PC.NURSE ---
Addendum entered by Lesley Marti RN 09/29/24 04:56: Thus far, an occult stool sample has not been collected. Original Note: Mr Santo Terrell was newly admitted last night on behalf of the documented diagnosis of (intractable) nausea and vomiting. He has also complained to me about experiencing diarrhea as well. He has a history of afib heart rhythm, degenerative disc disease (lumbar), gout, hyperlipidemia, acute kidney injuries, etc. (see list). He is also alert and oriented x4. Thus far, since his arrival to the 2nd floor, he has not complained of any further nausea or vomiting, nor abdominal pain (or any pain at all); he has also not requested any medications for such. He was given several medications in the ER (see MAR). On the 2nd floor, an infusion of normal saline was started, currently running at 100 mL/hr. He requested for his left arm (containing the IV site) to be boarded during his infusion while asleep so he can keep his arm straight. He was observed to have eyes closed, respirations even and unlabored on room air, and no apparent distress throughout the majority of the night. He ambulates to the bathroom independently; he tolerates ambulation well. Upon auscultation, his lung sounds were clear, S1/S2 heart sounds could be heard with an irregular rhythm, and bowel sounds were active. Vital signs have been relatively stable upon arrival to his room this shift. He is currently NPO but is allowed ice chips as tolerated. At this time, he has not had any further complaints. He has been self-turning in bed. No acute changes noted thus far. Call light within reach. Home medications are in room pending labeling by pharmacy.
[2024-09-29 06:43] LABS: Basophils % 0.7 % (0.1-2.0); Eosinophils # 0.1 K/mm3 (0.0-0.4); Eosinophils % 1.3 % (0.1-12.0); Hematocrit 44.9 % (42.0-52.0); Lymphocytes # 1.1 K/mm3 (0.7-4.5); Lymphocytes % 19.3 % (10-50); Mean Corpuscular HGB Conc 33.4 g/dL (31.8-35.4); Mean Corpuscular Hemoglobin 29.2 pg (27.0-31.2); Mean Corpuscular Volume 87.5 fl (80-94); Mean Platelet Volume 8.4 fl (7.4-10.4); Monocytes # 0.4 K/mm3 (0.1-1.0); Monocytes % 7.3 % (1.7-9.3); Neutrophils # 3.9 K/mm3 (1.8-7.8); Neutrophils % 71.4 % (37.0-80.0); Platelet Count 156 K/mm3 (142-424); Red Blood Count 5.12 M/mm3 (4.60-6.20); Red Cell Distribution Width 14.8 % (11.5-17.5); White Blood Count 5.5 K/mm3 (4.8-10.8)
[2024-09-29 06:46] LABS: Alanine Aminotransferase 92 U/L (12-78); Albumin Level 3.2 g/dl (3.5-5.0); Albumin/Globulin Ratio 1.2 (1.1-1.8); Alkaline Phosphatase 130 U/L (38-126); Anion Gap 11.6 mEq/L (5-15); Aspartate Amino Transferase 89 U/L (17-59); Bilirubin,Total 1.1 mg/dl (0.2-1.3); Blood Urea Nitrogen 19 mg/dl (9-20); Calcium 8.2 mg/dl (8.4-10.2); Carbon Dioxide 24 mmol/L (22.0-30.0); Chloride 108 mmol/L (98-107); Creatinine Clearance Estimated 67 mL/min (50-200); Estimated Glomerular Filt Rate 59 ml/min (>60); GFR (African American) 71 ML/MIN (>60); Globulin 2.7 g/dL (1.3-3.2); Glucose 85 mg/dl (74-100); Magnesium 1.7 mg/dl (1.6-2.3); Potassium 3.6 mmoL/L (3.5-5.1); Sodium 140 mmol/L (136-145); Total Protein,Serum 5.9 g/dl (6.3-8.2)
[2024-09-29 06:59] LABS: Lipase 194 U/L (23-300)
--- NOTE | 2024-09-29 07:12 | HMH.PHAINT1 ---
Pharmacy Intervention Comments: Home medications verified via outpatient pharmacy and patient interview
[2024-09-29 08:00] VITALS: BP 127/82; PULSE 88; RESP 18; TEMP 36.7; O2SAT 97
[2024-09-29] MEDS: dilTIAZem ER 240MG CAPSULE 240 MG PO (08:11)
[2024-09-29] MEDS: SODIUM CHLORIDE 0.9% 10ML VIAL 8 ML IV ×2 (08:12→21:57)
[2024-09-29] MEDS: FAMOTIDINE 20MG/2ML VIAL 20 MG IV ×2 (08:13→21:57)
--- NOTE | 2024-09-29 10:38 | FL_ITS ---
FINAL REPORT CLINICAL HISTORY: eval obstruction FINDINGS: SMALL BOWEL FOLLOW-THROUGH HISTORY: Abnormal CT, small bowel obstruction, possible gastric outlet obstruction. PROCEDURE: The patient ingested Gastrografin. Overhead films were obtained. 9 images were obtained. FINDINGS: The tub wash operator film is unremarkable. Gastroesophageal reflux to at least the mid esophagus is noted on the immediate image. Contrast empties from the stomach by 15 minutes. There is no evidence of gastric outlet obstruction. There is mild dilation of proximal small bowel. The bowel appears less dilated than on the recent CT scan. There is no complete small bowel obstruction. Contrast reaches the colon at 1.5 hours. FLUOROSCOPY TIME: Fluoroscopy was not utilized for this procedure. IMPRESSION: No gastric outlet obstruction and no complete small bowel obstruction. Mildly dilated proximal small bowel, less dilated than on the recent CT. Gastroesophageal reflux incidentally noted. Reviewed, Interpreted and Dictated by Get Estrada MD Transcribed by Mary Lopez PA-C Authenticated and [facility]
--- NOTE | 2024-09-29 10:46 | P.CONS_ITS ---
History of Present Illness *Admission Date: 09/28/24 *Reason for visit:: Possible bowel obstruction *History of present illness: This is a 79-year-old gentleman seen in consultation after presenting to the emergency department with increasing abdominal pain and nausea/vomiting (please see HPI forwarded from admission H&P below). He currently feels much better . He states that he continues to pass flatus and had a bowel movement yesterday. The patient also states that he does not want surgical intervention for small bowel obstruction and he does not want surgical intervention for possible gastric lesion. He is interested in possible esophagogastroduodenoscopy in the near future. CT from ED: IMPRESSION: 1. Findings compatible with small bowel obstruction. A closed loop obstruction could not be excluded. 2. A call has been placed to the referring physician at which time an addended report will be issued. 3. Polypoid mass in the region of the antrum of the stomach. Persistent narrowing of the 1st portion of the duodenum. Endoscopic evaluation recommended. Forwarded from admission H&P: Patient was just recently released from the hospital after being in for the same condition. Was noted he had a partial small bowel obstruction was noted, he saw Dr. Hassan and was followed. Patient then improved started having stools being able to eat and went home. Patient noted he had a very good bowel movement on Saturday but since then has had nothing but watery diarrhea, . Also CT scan noted small bowel obstruction probable. Labs remain normal lipase amylase normal. Consult has been put in for general surgery again . And after conferring with the ER doctor going over the present labs and CT scan will except admission and place him up on the floor for further evaluation and consult. Presently not vomiting but only taking a few ice chips. . Forwarded from discharge summary dated 09/25/2024 (truncated): HPI HPI HPI: Patient is a 79-year-old male with history of chronic atrial fibrillation on Xarelto, hypertension, hyperlipidemia, GERD. He has a prior history of appendectomy and cholecystectomy. He initially had symptoms of loose watery stools beginning on 09/19/2024. He had taken some Imodium 2 days ago. He felt well in the morning of 09/23/2024 but then developed symptoms of generalized abdominal pain, nausea, vomiting, and decreased output of stool. He has had minimal flatus. Described abdominal distention. Evaluation in the emergency department included CT scan which was concerning for partial bowel obstruction. CT scan revealed, incidentally noted gastric polyp or pedunculated mass at the antrum of the stomach measuring 16 mm diameter by at least 19 mm in length. Advise gastroenterology consultation. Generous gaseous and fluid distention of the jejunum. May indicate partial small bowel obstruction. No free fluid or free gas. Most likely infectious or inflammatory in origin... He was admitted for inpatient management. Surgical consultation was ordered this morning. Patient states he feels essentially normal with resolution of symptoms at this time. No acute distress. No abdominal pain. No nausea. He has not required nasogastric tube. Patient states that he has never had a prior colonoscopy and does not want to do one. Hospital Course Hospital Course Hospital Course: Santo Terrell is a 79-year-old male with nausea vomiting and diarrhea over the past 5 days, stopped having bowel movements 2 days ago. Presentation with abdominal pain and distention. Workup in the ER concerning for acute kidney injury and partial bowel obstruction. Discussed case with ER physician, request admission for fluid resuscitation, treatment of TUNDE, medical management of bowel obstruction. I agreed to admit for further management. Patient hemodynamically stable on room air. Problems addressed as follows: Partial SBO - CT reviewed personally, has gaseous distention of small bowel, no clear transition point. Concern for partial obstruction. Given his preceding diarrhea, nausea vomiting, suspect infectious. ? Clinically improved with bowel rest, and slowly transitioning to low residue diet. Tolerated full liquid diet this morning, and low residue diet this afternoon without issues. ? General Surgery consulted, no surgical interventions needed at this time. ? Patient is tolerating p.o. intake without nausea/vomiting, having bowel movements, positive for bowel sounds. Ambulating independently in the hallways without distress. ? Diarrhea panel was positive for ETEC. Supportive treatment with oral rehydration. ? Nutrition consulted, provided recommendations on low residue diet upon discharge. Will continue low residue diet for the next couple days and slowly transition back to regular diet. ? Medically stable for discharge. Strict return precautions discussed and understood. ? Will follow-up with PCP within 1 week. Gastric polyp/lesion GERD -Continue PPI. -CT personally reviewed, shows almost 2 cm lesion in his stomach concerning for polyp. Would benefit from outpatient GI follow-up and EGD for more definitive workup and diagnosis. Referral made. PFSH PFSH Disclaimer: The information contained in this section may have been updated after the patient was seen, as this information can be updated by other users. Medical History (Updated 09/29/24 @ 10:53 by Eron Mckinley MD) Hyperglycemia Numbness and tingling of left leg Lumbar spinal stenosis Chronic low back pain Brain bleed Seizure Degenerative disc disease, lumbar Lumbar radiculopathy Ligamentum flavum hypertrophy Hyperlipidemia GERD (gastroesophageal reflux disease) Afib Gout Surgical History History of lumbar surgery Previous back surgery H/O shoulder surgery History of cholecystectomy History of appendectomy Family History Stroke Father Social History (Updated 09/28/24 @ 21:38 by Lesley Marti RN) Smoking Status: Former smoker years smoked: 12 alcohol intake: current alcohol intake frequency: a few times a month substance use type: denies use current occupational status: retired Travel in the last 8 weeks: None household members: none housing: house Review of Systems *Neurologic Neurologic: Reports as per [facility] Meds Home Medications and Allergies Home Medications ?Medication ?Instructions ?Recorded ?Confirmed ?Type rivaroxaban 20 mg tablet (Xarelto) 20 mg PO DAILY 01/29/23 09/29/24 History probenecid 500 mg tablet 250 mg PO DAILY 09/26/23 09/29/24 History sour stoddard extract 1,000 mg 1,000 mg PO DAILY 11/06/23 09/29/24 History capsule (Tart Stoddard Extract) diltiazem HCl 240 mg 240 mg PO DAILY #90 caps 04/10/24 09/29/24 Rx capsule,extended release 24 hr omeprazole 20 mg capsule,delayed 20 mg PO DAILY #90 caps 06/15/24 09/29/24 Rx release pitavastatin calcium 4 mg tablet 1 mg PO HS 09/24/24 09/29/24 History allopurinol 100 mg tablet 100 mg PO DAILY 09/28/24 09/29/24 History New Prescriptions to Start Prescriptions: Allergies Allergy/AdvReac Type Severity Reaction Status Date / Time codeine Allergy Rash Verified 09/23/24 18:41 Exam (Inpt) Vital signs and Labs for Last 24 Hours: Temp Pulse Resp BP Pulse Ox O2 Del Method 98.1 F 88 18 127/82 97 Room Air 09/29/24 08:00 09/29/24 08:00 09/29/24 08:00 09/29/24 08:00 09/29/24 08:00 09/29/24 09:00 Laboratory Results - last 24 hr 09/28/24 16:55: VBG pH 7.40, VBG pCO2 32.6 L, VBG pO2 59.0 H, VBG HCO3 19.7 L, V BG Total CO2 20.7 L, VBG O2 Saturation 90.4 H, VBG Base Excess -5.1 L, VBG Lactic Acid 2.6 H 09/28/24 17:07: WBC 8.8, RBC 5.70, Hgb 16.8, Hct 48.4, MCV 84.9, MCH 29.5, MCHC 34.8, RDW 14.6, Plt Count 209, MPV 8.5, Neut % (Auto) 80.3 H, Lymph % (Auto) 14.1, [place] % (Auto) 4.7, Eos % (Auto) 0.5, Baso % (Auto) 0.4, Neut # (Auto) 7.0, Lymph # (Auto) 1.2, [place] # (Auto) 0.4, Eos # (Auto) 0.1, Baso # (Auto) 0.0, Sodium 139, Potassium 3.6, Chloride 106, Carbon Dioxide 22, Anion Gap 14.6, BUN 20, Creatinine 1.50 H, Estimated Creat Clear 57, Estimated GFR 45 L, Est GFR ( Amer) 55 L, Glucose 156 H, Calcium 9.1, Total Bilirubin 1.1, AST 33, ALT 62, Alkaline Phosphatase 117, Troponin I < 0.01, Total Protein 7.0, Albumin 4.0, Globulin 3.0, Albumin/Globulin Ratio 1.3, Lipase 210 09/28/24 22:30: Lactate 0.9, Troponin I < 0.01 09/29/24 01:40: Troponin I < 0.01 09/29/24 06:03: WBC 5.5 D, RBC 5.12, Hgb 15.0 D, Hct 44.9, MCV 87.5, MCH 29.2, MCHC 33.4, RDW 14.8, Plt Count 156 D, MPV 8.4, Neut % (Auto) 71.4, Lymph % (Auto) 19.3, [place] % (Auto) 7.3, Eos % (Auto) 1.3, Baso % (Auto) 0.7, Neut # (Auto) 3.9, Lymph # (Auto) 1.1, [place] # (Auto) 0.4, Eos # (Auto) 0.1, Baso # (Auto) 0.0, Sodium 140, Potassium 3.6, Chloride 108 H, Carbon Dioxide 24, Anion Gap 11.6, BUN 19, Creatinine 1.20, Estimated Creat Clear 67, Estimated GFR 59, E st GFR ( Amer) 71 D, Glucose 85 D, Calcium 8.2 L, Magnesium 1.7, Total Bilirubin 1.1, AST 89 H D, ALT 92 H D, Alkaline Phosphatase 130 H, Total Protein 5.9 L, Albumin 3.2 L D, Globulin 2.7, Albumin/Globulin Ratio 1.2, Lipase 194 I & O for Labs for Last 24 Hours: Intake & Output 09/26/24 09/27/24 09/28/24 09/29/24 11:59 11:59 11:59 11:59 Intake Total 1223 / 1223 Output Total 0 / 0 Balance 1223 / 1223 Weight 206 lb 1 oz Constitutional: no acute distress Respiratory: Absent respiratory distress Cardiac: Absent Tachycardia GI: Present soft Results Labs 09/29/24 06:03 09/29/24 06:03 Labs: Laboratory Results - last 24 hr 09/28/24 16:55: VBG pH 7.40, VBG pCO2 32.6 L, VBG pO2 59.0 H, VBG HCO3 19.7 L, V BG Total CO2 20.7 L, VBG O2 Saturation 90.4 H, VBG Base Excess -5.1 L, VBG Lactic Acid 2.6 H 09/28/24 17:07: WBC 8.8, RBC 5.70, Hgb 16.8, Hct 48.4, MCV 84.9, MCH 29.5, MCHC 34.8, RDW 14.6, Plt Count 209, MPV 8.5, Neut % (Auto) 80.3 H, Lymph % (Auto) 14.1, [place] % (Auto) 4.7, Eos % (Auto) 0.5, Baso % (Auto) 0.4, Neut # (Auto) 7.0, Lymph # (Auto) 1.2, [place] # (Auto) 0.4, Eos # (Auto) 0.1, Baso # (Auto) 0.0, Sodium 139, Potassium 3.6, Chloride 106, Carbon Dioxide 22, Anion Gap 14.6, BUN 20, Creatinine 1.50 H, Estimated Creat Clear 57, Estimated GFR 45 L, Est GFR ( Amer) 55 L, Glucose 156 H, Calcium 9.1, Total Bilirubin 1.1, AST 33, ALT 62, Alkaline Phosphatase 117, Troponin I < 0.01, Total Protein 7.0, Albumin 4.0, Globulin 3.0, Albumin/Globulin Ratio 1.3, Lipase 210 09/28/24 22:30: Lactate 0.9, Troponin I < 0.01 09/29/24 01:40: Troponin I < 0.01 09/29/24 06:03: WBC 5.5 D, RBC 5.12, Hgb 15.0 D, Hct 44.9, MCV 87.5, MCH 29.2, MCHC 33.4, RDW 14.8, Plt Count 156 D, MPV 8.4, Neut % (Auto) 71.4, Lymph % (Auto) 19.3, [place] % (Auto) 7.3, Eos % (Auto) 1.3, Baso % (Auto) 0.7, Neut # (Auto) 3.9, Lymph # (Auto) 1.1, [place] # (Auto) 0.4, Eos # (Auto) 0.1, Baso # (Auto) 0.0, Sodium 140, Potassium 3.6, Chloride 108 H, Carbon Dioxide 24, Anion Gap 11.6, BUN 19, Creatinine 1.20, Estimated Creat Clear 67, Estimated GFR 59, E st GFR ( Amer) 71 D, Glucose 85 D, Calcium 8.2 L, Magnesium 1.7, Total Bilirubin 1.1, AST 89 H D, ALT 92 H D, Alkaline Phosphatase 130 H, Total Protein 5.9 L, Albumin 3.2 L D, Globulin 2.7, Albumin/Globulin Ratio 1.2, Lipase [address] scan - abdomen: report reviewed and image reviewed CT scan - pelvis: report reviewed and image reviewed Assessment and Plan *Assessment and plan (1) Small bowel obstruction: Status: Acute Category: Medical Code(s): K56.609 - Unspecified intestinal obstruction, unspecified as to partial versus complete obstruction Plan: The patient continues to have bowel function. He has no evidence of persistent/complete obstruction. Intermittent complete obstruction or partial obstruction remain a possibility; however, the most likely causative factor for his radiographic findings relate to his diagnosis of ETEC enterocolitis. Continue medical management of ETEC enterocolitis Continue serial abdominal exams UGI/SBFT pending (2) Gastric lesion: Status: Acute Category: Medical Code(s): K31.9 - Disease of stomach and duodenum, unspecified Plan: Endoscopic evaluation in the near future warranted (note above that plans were made during his prior hospitalization for endoscopic evaluation of this lesion); however, the risk of sedation currently [as he continues to improve from his enterocolitis and possible concomitant obstruction] outweigh the benefit. Follow-up UGI/SBFT (evaluation for possible gastric outlet obstruction) (3) Enterocolitis: Status: Acute Category: Medical Code(s): K52.9 - Noninfective gastroenteritis and colitis, unspecified (4) Intractable nausea and vomiting: Status: Acute Category: Medical Code(s): R11.2 - Nausea with vomiting, unspecified
[2024-09-29] MEDS: 0.9 % SODIUM CHLORIDE 1000ML 1,000 ML 100 ML IV (11:52)
[2024-09-29] MEDS: DIATRIZOATE MEGLUMINE(GASTROGRAFIN) 66%-10% 120ML 480 ML PO (13:52)
--- OUTSIDE RECORDS SUMMARY | 2024-09-29 14:35 | XMS_ITS | Encounter Summary ---
Author Organization [employer] Address [address] [place] [address] Care Team Providers Care City Recorder Name Role Phone Unavailable Primary Care Provider Unavailabl e Encounter Details Date Type Department Care Team (Late st Contact Info) Description 11/18/2018 Transcribed Document [facility] Family Medicine [address] [place] [address] ProviderHubert MD [address] [place] [id number] Social History Tobacco Use Types Packs/Day Years Used Date Smoking Tobacco: Never Assessed Sex and Gender Information Value Date Recorded Sex Assigned at Male 05/10/2022 4:38 PM CDT Legal Sex Male 6:25 PM CDT Gender Identity Male 05/10/2022 4:38 PM CDT Sexual Orientation Not on file documented as of this encounter Miscellaneous Notes * Cerner Conversion Note - Hubert Provider, - 11/18/2018 1:01 PM [employer] [address] [place] [address] Patient Copy Patient Information: Name: MARILYN TERRELL Current Date: 11/18/2018 13:01:13 : 1945 Patient Address: [address] [address] Patient Attending Physician: HAKEEM LI MD Primary Care Provider: ALISSA PRAJAPATI (REF), -[facility] Primary Care Provider Discharge Diagnosis: Weight on Admission: 228 lb, 3 oz Weight at Discharge: 228 lb Comment: Follow-up Instructions: With: Address: When: MILY PAULSON [address], [place] [address] Business (1) 9:45 AM Discharge Instructions: Diet after Discharge: Heart healthy diet Activity after Discharge: No strenuous activities, No heavy lifting over 10 pounds Immunizations Documented During Stay: No Immunizations Found Heart Failure Discharge Instructions (if any): Stroke Related Discharge Instructions (if any): Warfarin Related Discharge Instructions (if any): Final Medication List: Printed Prescriptions amiodarone (amiodarone 200 mg oral tablet) 2 Tablet(s) Oral Two Times A Day for 14 Day(s). Refills: 0. rivaroxaban (Xarelto 20 mg oral tablet) 1 Tablet(s) Oral Interval Every 24 Hours. Refills: 0. Other Medications aspirin 81 Milligram(s) Oral Every Day. dilTIAZem (DilTIAZem Hydrochloride CD 180 mg/24 hours oral capsule, extended release) 1 Capsule(s) Oral Every Day. losartan (losartan 25 mg oral tablet) 2 Tablet(s) Oral Two Times A Day. omeprazole 20 Milligram(s) Oral Every Day. PITavastatin (Livalo 2 mg oral tablet) 0.5 Tablet(s) Saturday, Saturday, Saturday. Patient Allergies: Triple Antibotic Ointment; promethazine; metoprolol; codeine Medication Instructions: Take your medications faithfully. Do NOT skip medication. Do NOT stop taking medications without the direction of a physician. Carry a list of your medications with you at all times, and take this medication list with you to your first follow up visit. Report any side effects. Avoid herbal remedies unless discussed with your physician. As part of your treatment plan, your physician may have prescribed a limited course of a controlled substance. This medication may be given to help people with moderate or severe pain or for other medical conditions, but there are risks involved with treatment. Common side effects may include nausea, constipation, drowsiness, sweating, itching, dry mouth, and rash. More serious side effects may include cognitive and motor impairment, like problems with thinking, concentrating, alertness, and movement (e.g. slowed reflexes), and driving and operating heavy machinery can be dangerous. It is important for you to talk to your physician if you have these side effects or questions. These controlled substances can produce physical dependence and be habit-forming if taken for an extended period of time, which means that the body has gotten used to them and may experience withdrawal symptoms if they are abruptly stopped. Withdrawal symptoms can include runny nose, sweating, goose bumps, diarrhea, abdominal cramping, rapid heartbeat, difficulty sleeping, and nervousness. Patient education materials: Coronary Artery Disease, Male Coronary artery disease (CAD) is a process in which the blood vessels of the heart (coronary arteries) become narrow or blocked. The narrowing or blockage can lead to decreased blood flow to the heart muscle (angina). Prolonged reduced blood flow can cause a heart attack (myocardial infarction, [place]). Because CAD is the leading cause of in men, it is important to understand what causes this condition and how it is treated. What are the causes? Atherosclerosis is the cause of CAD. This is the buildup of fat and cholesterol (plaque) on the inside of the arteries. Over time, the plaque may narrow or block the artery, and this will lessen blood flow to the heart. Plaque can also become weak and break off within a coronary artery to form a clot and cause a sudden blockage. What increases the risk? Many risk factors increase your chances of getting CAD, including: ??? High cholesterol levels. ??? High blood pressure (hypertension). ??? Tobacco use. ??? Diabetes. ??? Age. Men over age 45 are at a greater risk of CAD. ??? Gender. Men often develop CAD earlier in life than women. ??? Family history of CAD. ??? Obesity. ??? Lack of exercise. ??? A diet high in saturated fats. What are the signs or symptoms? Many people do not experience any symptoms during the early stages of CAD. As the condition progresses, symptoms may include: ??? Chest pain. ? The pain can be described as a crushing or squeezing in the chest, or a tightness, pressure, fullness, or heaviness in the chest. ? The pain can last more than a few minutes or can stop and recur. ??? Pain in the arms, neck, jaw, or back. ??? Unexplained heartburn or indigestion. ??? Shortness of breath. ??? Nausea. ??? Sudden cold sweats. Less common symptoms of CAD in men can include: ??? Fatigue. ??? Unexplained feelings of nervousness or anxiety. ??? Weakness. ??? Diarrhea. ??? Sudden light-headedness. How is this diagnosed? Tests to diagnose CAD may include: ??? ECG (electrocardiogram). ??? Exercise stress test. This looks for signs of blockage when the heart is being exercised. ??? Pharmacologic stress test. This test looks for signs of blockage when the heart is being stressed with a medicine. ??? Blood tests. ??? Coronary angiogram. This is a procedure to look at the coronary arteries to see if there is any blockage. How is this treated? The treatment of CAD may include the following: ??? Healthy behavioral changes to reduce or control risk factors. ??? Medicine. ??? Coronary stenting.?A stent helps to keep an artery open. ??? Coronary angioplasty. This procedure widens a narrowed or blocked artery. ??? Coronary artery?bypass surgery. This will allow your blood to pass the blockage (bypass) to reach your heart. Follow these instructions at home: ??? Take medicines only as directed by your health care provider. ??? Do nottake the following medicines unless your health care provider approves: ? Nonsteroidal anti-inflammatory drugs (NSAIDs), such as ibuprofen, naproxen, or celecoxib. ? Vitamin supplements that contain vitamin A, vitamin E, or both. ??? Manage other health conditions such as hypertension and diabetes as directed by your health care provider. ??? Follow a heart-healthy diet. A dietitian can help to educate you about healthy food options and changes. ??? Use healthy cooking methods such as roasting, grilling, broiling, baking, poaching, steaming, or stir-frying. Talk to a dietitian to learn more about healthy cooking methods. ??? Follow an exercise program approved by your health care provider. ??? Maintain a healthy weight. Lose weight as approved by your health care provider. ??? Plan rest periods when fatigued. ??? Learn to manage stress. ??? Do notuse any tobacco products, including cigarettes, chewing tobacco, or electronic cigarettes. If you need help quitting, ask your health care provider. ??? If you drink alcohol, and your health care provider approves, limit your alcohol intake to no more than 1 drink per day. One drink equals 12 ounces of beer, 5 ounces of wine, or 1? ounces of hard liquor. ??? Stop illegal drug use. ??? Your health care provider may ask you to monitor your blood pressure. A blood pressure reading consists of a higher number over a lower number, such as 110 over 72, which is written as 110/72. Ideally, your blood pressure should be: ? Below 140/90 if you have no other medical conditions. ? Below 130/80 if you have diabetes or kidney disease. ??? Keep all follow-up visits as directed by your health care provider. This is important. Get help right away if: ??? You have pain in your chest, neck, arm, jaw, stomach, or back that lasts more than a few minutes, is recurring, or is unrelieved by taking medicine under your tongue (sublingual?nitroglycerin). ??? You have profuse sweating without cause. ??? You have unexplained: ? Heartburn or indigestion. ? Shortness of breath or difficulty breathing. ? Nausea or vomiting. ? Fatigue. ? Feelings of nervousness or anxiety. ? Weakness. ? Diarrhea. ??? You have sudden light-headedness or dizziness. ??? You faint. These symptoms may represent a serious problem that is an emergency. Do not wait to see if the symptoms will go away. Get medical help right away. Call your local emergency services (911 in the [place] Do not drive yourself to the hospital. This information is not intended to replace advice given to you by your health care provider. Make sure you discuss any questions you have with your health care provider. Document Released: 05/25/2015 Document Revised: 04/04/2017 Document Reviewed: 03/01/2015 [employer] Interactive Patient Education ? 2017 [employer] Coronary Angiogram A coronary angiogram is an X-ray procedure that is used to examine the arteries in the heart. In this procedure, a dye (contrast dye) is injected through a long, thin tube (catheter). The catheter is inserted through the groin, wrist, or arm. The dye is injected into each artery, then X-rays are taken to show if there is a blockage in the arteries of the heart. This procedure can also show if you have valve disease or a disease of the aorta, and it can be used to check the overall function of your heart muscle. You may have a coronary angiogram if: ??? You are having chest pain, or other symptoms of angina, and you are at risk for heart disease. ??? You have an abnormal electrocardiogram (ECG) or stress test. ??? You have chest pain and heart failure. ??? You are having irregular heart rhythms. ??? You and your health care provider determine that the benefits of the test information outweigh the risks of the procedure. Let your health care provider know about: ??? Any allergies you have, including allergies to contrast dye. ??? All medicines you are taking, including vitamins, herbs, eye drops, creams, and dhkd-swa-ifimufb medicines. ??? Any problems you or family members have had with anesthetic medicines. ??? Any blood disorders you have. ??? Any surgeries you have had. ??? History of kidney problems or kidney failure. ??? Any medical conditions you have. ??? Whether you are or may be . What are the risks? Generally, this is a safe procedure. However, problems may occur, including: ??? Infection. ??? Allergic reaction to medicines or dyes that are used. ??? Bleeding from the access site or other locations. ??? Kidney injury, especially in people with impaired kidney function. ??? Stroke (rare). ??? Heart attack (rare). ??? Damage to other structures or organs. What happens before the procedure? Staying hydratedFollow instructions from your health care provider about hydration, which may include: ??? Up to 2 hours before the procedure ? you may continue to drink clear liquids, such as water, clear fruit juice, black coffee, and plain tea. Eating and drinking restrictionsFollow instructions from your health care provider about eating and drinking, which may include: ??? 8 hours before the procedure ? stop eating heavy meals or foods such as meat, fried foods, or fatty foods. ??? 6 hours before the procedure ? stop eating light meals or foods, such as toast or cereal. ??? 2 hours before the procedure ? stop drinking clear liquids. General instructions ??? Ask your health care provider about: ? Changing or stopping your regular medicines. This is especially important if you are taking diabetes medicines or blood thinners. ? Taking medicines such as ibuprofen. These medicines can thin your blood. Do not take these medicines before your procedure if your health care provider instructs you not to, though aspirin may be recommended prior to coronary angiograms. ??? Plan to have someone take you home from the hospital or clinic. ??? You may need to have blood tests or X-rays done. What happens during the procedure? An IV tube will be inserted into one of your veins. ??? You will be given one or more of the following: ? A medicine to help you relax (sedative). ? A medicine to numb the area where the catheter will be inserted into an artery (local anesthetic). ??? To reduce your risk of infection: ? Your health care team will wash or sanitize their hands. ? Your skin will be washed with soap. ? Hair may be removed from the area where the catheter will be inserted. ??? You will be connected to a continuous ECG monitor. ??? The catheter will be inserted into an artery. The location may be in your groin, in your wrist, or in the fold of your arm (near your elbow). ??? A type of X-ray (fluoroscopy) will be used to help guide the catheter to the opening of the blood vessel that is being examined. ??? A dye will be injected into the catheter, and X-rays will be taken. The dye will help to show where any narrowing or blockages are located in the heart arteries. ??? Tell your health care provider if you have any chest pain or trouble breathing during the procedure. ??? If blockages are found, your health care provider may perform another procedure, such as inserting a coronary stent. The procedure may vary among health care providers and hospitals. What happens after the procedure? After the procedure, you will need to keep the area still for a few hours, or for as long as told by your health care provider. If the procedure is done through the groin, you will be instructed to not bend and not cross your legs. ??? The insertion site will be checked frequently. ??? The pulse in your foot or wrist will be checked frequently. ??? You may have additional blood tests, X-rays, and a test that records the electrical activity of your heart (ECG). ??? Do notdrive for 24 hours if you were given a sedative. Summary ??? A coronary angiogram is an X-ray procedure that is used to look into the arteries in the heart. ??? During the procedure, a dye (contrast dye) is injected through a long, thin tube (catheter). The catheter is inserted through the groin, wrist, or arm. ??? Tell your health care provider about any allergies you have, including allergies to contrast dye. ??? After the procedure, you will need to keep the area still for a few hours, or for as long as told by your health care provider. This information is not intended to replace advice given to you by your health care provider. Make sure you discuss any questions you have with your health care provider. Document Released: 05/03/2004 Document Revised: 08/09/2017 Document Reviewed: 08/09/2017 [employer] Interactive Patient Education ? 2017 [employer] Radial Site Care Introduction Refer to this sheet in the next few weeks. These instructions provide you with information about caring for yourself after your procedure. Your health care provider may also give you more specific instructions. Your treatment has been planned according to current medical practices, but problems sometimes occur. Call your health care provider if you have any problems or questions after your procedure. What can I expect after the procedure? After your procedure, it is typical to have the following: ??? Bruising at the radial site that usually fades within 1?2 weeks. ??? Blood collecting in the tissue (hematoma) that may be painful to the touch. It should usually decrease in size and tenderness within 1?2 weeks. Follow these instructions at home: ??? Take medicines only as directed by your health care provider. ??? You may shower 24?48 hours after the procedure or as directed by your health care provider. Remove the bandage (dressing) and gently wash the site with plain soap and water. Pat the area dry with a clean towel. Do not rub the site, because this may cause bleeding. ??? Do nottake baths, swim, or use a hot tub until your health care provider approves. ??? Check your insertion site every day for redness, swelling, or drainage. ??? Do notapply powder or lotion to the site. ??? Do notflex or bend the affected arm for 24 hours or as directed by your health care provider. ??? Do notpush or pull heavy objects with the affected arm for 24 hours or as directed by your health care provider. ??? Do notlift over 10 lb (4.5 kg) for 5 days after your procedure or as directed by your health care provider. ??? Ask your health care provider when it is okay to:? Return to work or school. ? Resume usual physical activities or sports. ? Resume sexual activity. ??? Do notdrive home if you are discharged the same day as the procedure. Have someone else drive you. ??? You may drive 24 hours after the procedure unless otherwise instructed by your health care provider. ??? Do notoperate machinery or power tools for 24 hours after the procedure. ??? If your procedure was done as an outpatient procedure, which means that you went home the same day as your procedure, a responsible adult should be with you for the first 24 hours after you arrive home. ??? Keep all follow-up visits as directed by your health care provider. This is important. Contact a health care provider if: ??? You have a fever. ??? You have chills. ??? You have increased bleeding from the radial site. Hold pressure on the site. Get help right away if: ??? You have unusual pain at the radial site. ??? You have redness, warmth, or swelling at the radial site. ??? You have drainage (other than a small amount of blood on the dressing) from the radial site. ??? The radial site is bleeding, and the bleeding does not stop after 30 minutes of holding steady pressure on the site. ??? Your arm or hand becomes pale, cool, tingly, or numb. This information is not intended to replace advice given to you by your health care provider. Make sure you discuss any questions you have with your health care provider. Document Released: 11/30/2011 Document Revised: 04/04/2017 Document Reviewed: 05/16/2015 ? 2017 [employer] Transesophageal Echocardiogram Transesophageal echocardiography (DAVY) is a special type of test that produces images of the heart by using sound waves (echocardiogram). This type of echocardiography can obtain better images of the heart than standard echocardiography. DAVY is done by passing a flexible tube down the esophagus. The heart is located in front of the esophagus. Because the heart and esophagus are close to one another, your health care provider can take very clear, detailed pictures of the heart via ultrasound waves. DAVY may be done: ??? If your health care provider needs more information based on standard echocardiography findings. ??? If you had a stroke. This might have happened because a clot formed in your heart. DAVY can visualize different areas of the heart and check for clots. ??? To check valve anatomy and function. ??? To check for infection on the inside of your heart (endocarditis). ??? To evaluate the dividing wall (septum) of the heart and presence of a hole that did not close after (patent foramen ovale oratrial septal defect). ??? To help diagnose a tear in the wall of the aorta (aortic dissection). ??? During cardiac valve surgery. This allows the surgeon to assess the valve repair before closing the chest. ??? During a variety of other cardiac procedures to guide positioning of catheters. ??? Sometimes before a cardioversion, which is a shock to convert heart rhythm back to normal. LET YOUR HEALTH CARE PROVIDER KNOW ABOUT: ??? Any allergies you have. ??? All medicines you are taking, including vitamins, herbs, eye drops, creams, and qdzi-hfv-lixbycw medicines. ??? Previous problems you or members of your family have had with the use of anesthetics. ??? Any blood disorders you have. ??? Previous surgeries you have had. ??? Medical conditions you have. ??? Swallowing difficulties. ??? An esophageal obstruction. RISKS AND COMPLICATIONS Generally, DAVY is a safe procedure. However, as with any procedure, complications can occur. Possible complications include an esophageal tear (rupture). BEFORE THE PROCEDURE ??? Do noteat or drink for 6 hours before the procedure or as directed by your health care provider. ??? Arrange for someone to drive you home after the procedure. Do not drive yourself home. During the procedure, you will be given medicines that can continue to make you feel drowsy and can impair your reflexes. ??? An IV access tube will be started in the arm. PROCEDURE ??? A medicine to help you relax (sedative) will be given through the IV access tube. ??? A medicine may be sprayed or gargled to numb the back of the throat. ??? Your blood pressure, heart rate, and breathing (vital signs) will be monitored during the procedure. ??? The DAVY probe is a long, flexible tube. The tip of the probe is placed into the back of the mouth, and you will be asked to swallow. This helps to pass the tip of the probe into the esophagus. Once the tip of the probe is in the correct area, your health care provider can take pictures of the heart. ??? DAVY is usually not a painful procedure. You may feel the probe press against the back of the throat. The probe does not enter the trachea and does not affect your breathing. AFTER THE PROCEDURE ??? You will be in bed, resting, until you have fully returned to consciousness. ??? When you first awaken, your throat may feel slightly sore and will probably still feel numb. This will improve slowly over time. ??? You will not be allowed to eat or drink until it is clear that the numbness has improved. ??? Once you have been able to drink, urinate, and sit on the edge of the bed without feeling sick to your stomach (nausea) or dizzy, you may be cleared to go home. ??? You should have a friend or family member with you for the next 24 hours after your procedure. This information is not intended to replace advice given to you by your health care provider. Make sure you discuss any questions you have with your health care provider. Document Released: 01/18/2004 Document Revised: 11/02/2014 Document Reviewed: 04/29/2014 [employer] Interactive Patient Education ? 2017 [employer] Electrical Cardioversion Electrical cardioversion is the delivery of a jolt of electricity to restore a normal rhythm to the heart. A rhythm that is too fast or is not regular keeps the heart from pumping well. In this procedure, sticky patches or metal paddles are placed on the chest to deliver electricity to the heart from a device. This procedure may be done in an emergency if: ??? There is low or no blood pressure as a result of the heart rhythm. ??? Normal rhythm must be restored as fast as possible to protect the brain and heart from further damage. ??? It may save a life. This procedure may also be done for irregular or fast heart rhythms that are not immediately life-threatening. Tell a health care provider about: ??? Any allergies you have. ??? All medicines you are taking, including vitamins, herbs, eye drops, creams, and oqng-fnv-wenpkfj medicines. ??? Any problems you or family members have had with anesthetic medicines. ??? Any blood disorders you have. ??? Any surgeries you have had. ??? Any medical conditions you have. ??? Whether you are or may be . What are the risks? Generally, this is a safe procedure. However, problems may occur, including: ??? Allergic reactions to medicines. ??? A blood clot that breaks free and travels to other parts of your body. ??? The possible return of an abnormal heart rhythm within hours or days after the procedure. ??? Your heart stopping (cardiac arrest?). This is rare. What happens before the procedure? Medicines ??? Your health care provider may have you start taking: ? Blood-thinning medicines (anticoagulants) so your blood does not clot as easily. ? Medicines may be given to help stabilize your heart rate and rhythm. ??? Ask your health care provider about changing or stopping your regular medicines. This is especially important if you are taking diabetes medicines or blood thinners. General instructions ??? Plan to have someone take you home from the hospital or clinic. ??? If you will be going home right after the procedure, plan to have someone with you for 24 hours. ??? Follow instructions from your health care provider about eating or drinking restrictions. What happens during the procedure? To lower your risk of infection: ? Your health care team will wash or sanitize their hands. ? Your skin will be washed with soap. ??? An IV tube will be inserted into one of your veins. ??? You will be given a medicine to help you relax (sedative). ??? Sticky patches (electrodes) or metal paddles may be placed on your chest. ??? An electrical shock will be delivered. The procedure may vary among health care providers and hospitals. What happens after the procedure? Your blood pressure, heart rate, breathing rate, and blood oxygen level will be monitored until the medicines you were given have worn off. ??? Do notdrive for 24 hours if you were given a sedative. ??? Your heart rhythm will be watched to make sure it does not change. This information is not intended to replace advice given to you by your health care provider. Make sure you discuss any questions you have with your health care provider. Document Released: 10/18/2003 Document Revised: 06/26/2017 Document Reviewed: 05/03/2017 Elsevier Interactive Patient Education ? 2017 [employer] Atrial Fibrillation Atrial fibrillation is a type of irregular or rapid heartbeat (arrhythmia). In atrial fibrillation, the heart quivers continuously in a chaotic pattern. This occurs when parts of the heart receive disorganized signals that make the heart unable to pump blood normally. This can increase the risk for stroke, heart failure, and other heart-related conditions. There are different types of atrial fibrillation, including: ??? Paroxysmal atrial fibrillation. This type starts suddenly, and it usually stops on its own shortly after it starts. ??? Persistent atrial fibrillation. This type often lasts longer than a week. It may stop on its own or with treatment. ??? Long-lasting persistent atrial fibrillation. This type lasts longer than 12 months. ??? Permanent atrial fibrillation. This type does not go away. Talk with your health care provider to learn about the type of atrial fibrillation that you have. What are the causes? This condition is caused by some heart-related conditions or procedures, including: ??? A heart attack. ??? Coronary artery disease. ??? Heart failure. ??? Heart valve conditions. ??? High blood pressure. ??? Inflammation of the sac that surrounds the heart (pericarditis). ??? Heart surgery. ??? Certain heart rhythm disorders, such as Lmod-Ojpbbvrxq-Taeze syndrome. Other causes include: ??? Pneumonia. ??? Obstructive sleep apnea. ??? Blockage of an artery in the lungs (pulmonary embolism, or PE). ??? Lung cancer. ??? Chronic lung disease. ??? Thyroid problems, especially if the thyroid is overactive (hyperthyroidism). ??? Caffeine. ??? Excessive alcohol use or illegal drug use. ??? Use of some medicines, including certain decongestants and diet pills. Sometimes, the cause cannot be found. What increases the risk? This condition is more likely to develop in: ??? People who are older in age. ??? People who smoke. ??? People who have diabetes mellitus. ??? People who are overweight (obese). ??? Athletes who exercise vigorously. What are the signs or symptoms? Symptoms of this condition include: ??? A feeling that your heart is beating rapidly or irregularly. ??? A feeling of discomfort or pain in your chest. ??? Shortness of breath. ??? Sudden light-headedness or weakness. ??? Getting tired easily during exercise. In some cases, there are no symptoms. How is this diagnosed? Your health care provider may be able to detect atrial fibrillation when taking your pulse. If detected, this condition may be diagnosed with: ??? An electrocardiogram (ECG). ??? A Holter monitor test that records your heartbeat patterns over a 24-hour period. ??? Transthoracic echocardiogram (TTE) to evaluate how blood flows through your heart. ??? Transesophageal echocardiogram (DAVY) to view more detailed images of your heart. ??? A stress test. ??? Imaging tests, such as a CT scan or chest X-ray. ??? Blood tests. How is this treated? The main goals of treatment are to prevent blood clots from forming and to keep your heart beating at a normal rate and rhythm. The type of treatment that you receive depends on many factors, such as your underlying medical conditions and how you feel when you are experiencing atrial fibrillation. This condition may be treated with: ??? Medicine to slow down the heart rate, bring the heart?s rhythm back to normal, or prevent clots from forming. ??? Electrical cardioversion. This is a procedure that resets your heart?s rhythm by delivering a controlled, low-energy shock to the heart through your skin. ??? Different types of ablation, such as catheter ablation, catheter ablation with pacemaker, or surgical ablation. These procedures destroy the heart tissues that send abnormal signals. When the pacemaker is used, it is placed under your skin to help your heart beat in a regular rhythm. Follow these instructions at home: ??? Take over-the counter and prescription medicines only as told by your health care provider. ??? If your health care provider prescribed a blood-thinning medicine (anticoagulant), take it exactly as told. Taking too much blood-thinning medicine can cause bleeding. If you do not take enough blood-thinning medicine, you will not have the protection that you need against stroke and other problems. ??? Do notuse tobacco products, including cigarettes, chewing tobacco, and e-cigarettes. If you need help quitting, ask your health care provider. ??? If you have obstructive sleep apnea, manage your condition as told by your health care provider. ??? Do notdrink alcohol. ??? Do notdrink beverages that contain caffeine, such as coffee, soda, and tea. ??? Maintain a healthy weight. Do not use diet pills unless your health care provider approves. Diet pills may make heart problems worse. ??? Follow diet instructions as told by your health care provider. ??? Exercise regularly as told by your health care provider. ??? Keep all follow-up visits as told by your health care provider. This is important. How is this prevented? Avoid drinking beverages that contain caffeine or alcohol. ??? Avoid certain medicines, especially medicines that are used for breathing problems. ??? Avoid certain herbs and herbal medicines, such as those that contain ephedra or ginseng. ??? Do notuse illegal drugs, such as cocaine and amphetamines. ??? Do notsmoke. ??? Manage your high blood pressure. Contact a health care provider if: ??? You notice a change in the rate, rhythm, or strength of your heartbeat. ??? You are taking an anticoagulant and you notice increased bruising. ??? You tire more easily when you exercise or exert yourself. Get help right away if: ??? You have chest pain, abdominal pain, sweating, or weakness. ??? You feel nauseous. ??? You notice blood in your vomit, bowel movement, or urine. ??? You have shortness of breath. ??? You suddenly have swollen feet and ankles. ??? You feel dizzy. ??? You have sudden weakness or numbness of the face, arm, or leg, especially on one side of the body. ??? You have trouble speaking, trouble understanding, or both (aphasia). ??? Your face or your eyelid droops on one side. These symptoms may represent a serious problem that is an emergency. Do not wait to see if the symptoms will go away. Get medical help right away. Call your local emergency services (911 in the [place] Do not drive yourself to the hospital. This information is not intended to replace advice given to you by your health care provider. Make sure you discuss any questions you have with your health care provider. Document Released: 10/28/2006 Document Revised: 03/06/2017 Document Reviewed: 02/22/2016 [employer] Interactive Patient Education ? 2017 [employer]. Medication Leaflets: amiodarone (oral) (A mi [place] karen rodriguez) Pacerone What is the most important information I should know about amiodarone? Amiodarone is for use only in treating life-threatening heart rhythm disorders. You should not take this medicine if you are allergic to amiodarone or iodine, or if you have heart block, a history of slow heartbeats that have caused you to faint, or if your heart cannot pump blood properly. Amiodarone can cause dangerous side effects on your heart, liver, lungs, or vision. Call your doctor or get medical help at once if you have: chest pain, fast or pounding heartbeats, trouble breathing, vision problems, upper stomach pain, vomiting, dark urine, jaundice (yellowing of the skin or eyes), or if you cough up blood. What is amiodarone? Amiodarone affects the rhythm of your heartbeats. Amiodarone is used to help keep the heart beating normally in people with life-threatening heart rhythm disorders of the ventricles (the lower chambers of the heart that allow blood to flow out of the heart). Amiodarone is used to treat ventricular tachycardia or ventricular fibrillation. Amiodarone is for use only in treating life-threatening heart rhythm disorders. Amiodarone may also be used for purposes not listed in this medication guide. What should I discuss with my healthcare provider before taking amiodarone? You should not use this medicine if you are allergic to amiodarone or iodine, or if you have: ? a serious heart condition called 'AV block' (2nd or 3rd degree), unless you have a pacemaker; ?? a history of slow heartbeats that have caused you to faint; or ?? if your heart cannot pump blood properly. Amiodarone can cause dangerous side effects on your heart, liver, lungs, or thyroid. Tell your doctor if you have ever had: ? asthma or another lung disorder; ?? liver disease; ?? a thyroid disorder; ?? vision problems; ?? high or low blood pressure; ?? an electrolyte imbalance (such as low levels of potassium or magnesium in your blood); or ?? if you have a pacemaker or defibrillator implanted in your chest. Taking amiodarone during may harm an unborn baby, or cause thyroid problems or abnormal heartbeats in the baby after it is born. Amiodarone may also affect the child's growth or development (speech, movement, academic skills) later in life. Tell your doctor if you are or if you become . You should not breast-feed while taking amiodarone, and for several months after stopping. Amiodarone takes a long time to clear from your body. Talk to your doctor about the best way to feed your baby during this time. How should I take amiodarone? Follow all directions on your prescription label and read all medication guides or instruction sheets. Your doctor may occasionally change your dose. Use the medicine exactly as directed. You will receive your first few doses in a hospital setting, where your heart rhythm can be monitored. If you have been taking another heart rhythm medicine, you may need to gradually stop taking it when you start using amiodarone. Follow your doctor's dosing instructions very carefully. You may take amiodarone with or without food, but take it the same way each time. It may take up to 3 weeks before your heart rhythm improves. Keep using the medicine as directed even if you feel well. Amiodarone can have long lasting effects on your body. You may need frequent medical tests while using this medicine and for several months after your last dose. If you need surgery (including laser eye surgery), tell the surgeon ahead of time that you are using amiodarone. This medicine can affect the results of certain medical tests. Tell any doctor who treats you that you are using amiodarone. Store at room temperature away from moisture, heat, and light. What happens if I miss a dose? Skip the missed dose and use your next dose at the regular time. Do not use two doses at one time. What happens if I overdose? Seek emergency medical attention or call the Poison Help line at . An overdose of amiodarone can be fatal. Overdose symptoms may include weakness, slow heart rate, feeling light-headed, or loss of consciousness. What should I avoid while taking amiodarone? Avoid driving or hazardous activity until you know how this medicine will affect you. Your reactions could be impaired. Grapefruit may interact with amiodarone and lead to unwanted side effects. Avoid the use of grapefruit products. Avoid taking an herbal supplement containing Suzanne's wort. Amiodarone could make you sunburn more easily. Avoid sunlight or tanning beds. Wear protective clothing and use sunscreen (SPF 30 or higher) when you are outdoors. What are the possible side effects of amiodarone? Get emergency medical help if you have signs of an allergic reaction: hives; difficulty breathing; swelling of your face, lips, tongue, or throat. Amiodarone takes a long time to completely clear from your body. You may continue to have side effects from amiodarone after you stop using it. Call your doctor at once if you have any of these side effects, even if they occur up to several months after you stop using amiodarone: ? wheezing, cough, chest pain, cough with bloody mucus, fever; ?? a new or a worsening irregular heartbeat pattern (fast, slow, or pounding heartbeats); ?? a light-headed feeling, like you might pass out; ?? blurred vision, seeing halos around lights (your eyes may be more sensitive to light); ?? liver problems--nausea, vomiting, stomach pain (upper right side), tiredness, dark urine, jaundice (yellowing of the skin or eyes); ?? nerve problems--loss of coordination, muscle weakness, uncontrolled muscle movement, or a prickly feeling in your hands or lower legs; ?? signs of overactive thyroid--weight loss, thinning hair, feeling hot, increased sweating, tremors, feeling nervous or irritable, irregular menstrual periods, swelling in your neck (goiter); or ?? signs of underactive thyroid--weight gain, tiredness, depression, trouble concentrating, feeling cold. Common side effects may include: ? nausea, vomiting, loss of appetite; or ?? constipation. This is not a complete list of side effects and others may occur. Call your doctor for medical advice about side effects. You may report side effects to FDA at 4-149-PCF-6010. What other drugs will affect amiodarone? Sometimes it is not safe to use certain medications at the same time. Some drugs can affect your blood levels of other drugs you take, which may increase side effects or make the medications less effective. Amiodarone takes a long time to completely clear from your body. Drug interactions are possible for up to several months after you stop using amiodarone. Talk to your doctor before taking any medication during this time. Keep track of how long it has been since your last dose of amiodarone. Many drugs can affect amiodarone. This includes prescription and [id number] medicines, vitamins, and herbal products. Not all possible interactions are listed here. Tell your doctor about all your current medicines and any medicine you start or stop using. Where can I get more information? Your doctor or pharmacist can provide more information about amiodarone. Remember, keep this and all other medicines out of the reach of children, never share your medicines with others, and use this medication only for the indication prescribed. Every effort has been made to ensure that the information provided by [employer]. ('[employer]') is accurate, up-to-date, and complete, but no guarantee is made to that effect. Drug information contained herein may be time sensitive. [employer] information has been compiled for use by healthcare practitioners and consumers in the [place] and therefore [employer] does not warrant that uses outside of the [place] are appropriate, unless specifically indicated otherwise. [employer]'s drug information does not endorse drugs, diagnose patients or recommend therapy. [employer] drug information is an informational resource designed to assist licensed healthcare practitioners in caring for their patients and/or to serve consumers viewing this service as a supplement to, and not a substitute for, the expertise, skill, knowledge and judgment of healthcare practitioners. The absence of a warning for a given drug or drug combination in no way should be construed to indicate that the drug or drug combination is safe, effective or appropriate for any given patient. [employer] does not assume any responsibility for any aspect of healthcare administered with the aid of information [employer] provides. The information contained herein is not intended to cover all possible uses, directions, precautions, warnings, drug interactions, allergic reactions, or adverse effects. If you have questions about the drugs you are taking, check with your doctor, nurse or pharmacist. Copyright 3820-3982 [employer]. Version: 7.01. Revision Date: 09/16/2018. rivaroxaban (GEORGE a RAF a ban) Xarelto What is the most important information I should know about rivaroxaban? Do not stop taking rivaroxaban without first talking to your doctor. Stopping suddenly can increase your risk of blood clot or stroke. Call your doctor at once if you have signs of bleeding such as: headaches, feeling very weak or dizzy, bleeding gums, nosebleeds, heavy menstrual periods or abnormal vaginal bleeding, blood in your urine, bloody or tarry stools, coughing up blood or vomit that looks like coffee grounds. Many other drugs can increase your risk of bleeding when used with rivaroxaban. Tell your doctor about all medicines you have recently used. Rivaroxaban can cause a very serious blood clot around your spinal cord if you undergo a spinal tap or receive spinal anesthesia (epidural). Tell any doctor who treats you that you are taking rivaroxaban. What is rivaroxaban? Rivaroxaban is used to treat or prevent blood clots in the legs (deep vein thrombosis) or in the lungs (pulmonary embolism). These types of blood clots can occur after knee or hip replacement surgery. Rivaroxaban is sometimes used to lower your risk of a blood clot coming back after you have received treatment for blood clots for at least 6 months. Rivaroxaban is also used in people with atrial fibrillation (a heart rhythm disorder) to lower the risk of stroke caused by a blood clot. Rivaroxaban is also given together with aspirin to lower the risk of stroke, heart attack, or other serious heart problems in people with coronary artery disease (decreased blood flow to the heart) or peripheral artery disease (decreased blood flow to the legs). Rivaroxaban may also be used for purposes not listed in this medication guide. What should I discuss with my healthcare provider before taking rivaroxaban? You should not use rivaroxaban if you are allergic to it, or if you have active or uncontrolled bleeding. Rivaroxaban can cause a very serious blood clot around your spinal cord if you undergo a spinal tap or receive spinal anesthesia (epidural). This type of blood clot could cause long-term paralysis, and may be more likely to occur if: ? you have a genetic spinal defect; ?? you have a spinal catheter in place; ?? you have a history of spinal surgery or repeated spinal taps; ?? you have recently had a spinal tap or epidural anesthesia; ?? you are taking an NSAID--Advil, Aleve, Motrin, and others; or ?? you are using other medicines to treat or prevent blood clots. Rivaroxaban may cause you to bleed more easily, especially if you have: ? a bleeding disorder that is inherited or caused by disease; ?? hemorrhagic stroke; ?? uncontrolled high blood pressure; ?? stomach or intestinal bleeding or ulcer; or ?? if you take certain medicines such as aspirin, enoxaparin, heparin, warfarin (Coumadin, Jantoven), clopidogrel (Plavix), or certain antidepressants. Tell your doctor if you have ever had: ? an artificial heart valve; or ?? liver or kidney disease. Taking rivaroxaban during may cause bleeding in the mother or the unborn baby. Tell your doctor if you are or plan to become . It may not be safe to breast-feed a baby while you are using this medicine. Ask your doctor about any risks. How should I take rivaroxaban? Follow all directions on your prescription label and read all medication guides or instruction sheets. Your doctor may occasionally change your dose. Use the medicine exactly as directed. The number of times you take rivaroxaban each day will depend on the reason you are using this medication. For some conditions, rivaroxaban should be taken with food. Whether you take the medicine with or without food may also depend on the tablet strength you take. Follow your doctor's dosing instructions very carefully. Tell your doctor if you have trouble swallowing a rivaroxaban tablet. Tell any doctor who treats you that you are using rivaroxaban. If you need surgery or dental work, tell the surgeon or dentist ahead of time that you are using this medication. If you need anesthesia for a medical procedure or surgery, you may need to stop using rivaroxaban for a short time. Do not change your dose or stop taking this medication without first talking to your doctor. Stopping suddenly can increase your risk of blood clot or stroke. Store at room temperature away from moisture and heat. What happens if I miss a dose? If you take rivaroxaban 1 time each day: Take the medicine as soon as you remember, and then go back to your regular schedule. Do not take two doses at one time. If you take rivaroxaban 2 times each day: Take the missed dose on the same day you remember it. You may take 2 doses at the same time to make up a missed dose. Get your prescription refilled before you run out of medicine completely. What happens if I overdose? Seek emergency medical attention or call the Poison Help line at . Overdose may cause excessive bleeding. What should I avoid while taking rivaroxaban? Avoid activities that may increase your risk of bleeding or injury. Use extra care to prevent bleeding while shaving or brushing your teeth. What are the possible side effects of rivaroxaban? Get emergency medical help if you have signs of an allergic reaction: hives; difficult breathing; swelling of your face, lips, tongue, or throat. Also seek emergency medical attention if you have symptoms of a spinal blood clot: back pain, numbness or muscle weakness in your lower body, or loss of bladder or bowel control. Rivaroxaban can cause you to bleed more easily. Call your doctor at once if you have signs of bleeding such as: ? easy bruising or bleeding (nosebleeds, bleeding gums, heavy menstrual bleeding); ?? pain, swelling, new drainage, or excessive bleeding from a wound or where a needle was injected in your skin; ?? any bleeding that will not stop; ?? headaches, dizziness, weakness, feeling like you might pass out; ?? urine that looks red, pink, or brown; or ?? bloody or tarry stools, coughing up blood or vomit that looks like coffee grounds. Bleeding is the most common side effect of rivaroxaban. This is not a complete list of side effects and others may occur. Call your doctor for medical advice about side effects. You may report side effects to FDA at 9-147-IXL-0951. What other drugs will affect rivaroxaban? Sometimes it is not safe to use certain medications at the same time. Some drugs can affect your blood levels of other drugs you take, which may increase side effects or make the medications less effective. Other drugs may affect rivaroxaban, including prescription and hjaw-pvy-zuouhcw medicines, vitamins, and herbal products. Tell your doctor about all your current medicines and any medicine you start or stop using. Where can I get more information? Your pharmacist can provide more information about rivaroxaban. Remember, keep this and all other medicines out of the reach of children, never share your medicines with others, and use this medication only for the indication prescribed. Every effort has been made to ensure that the information provided by [employer]. ('[employer]') is accurate, up-to-date, and complete, but no guarantee is made to that effect. Drug information contained herein may be time sensitive. [employer] information has been compiled for use by healthcare practitioners and consumers in the [place] and therefore [employer] does not warrant that uses outside of the [place] are appropriate, unless specifically indicated otherwise. [employer] drug information does not endorse drugs, diagnose patients or recommend therapy. [employer] drug information is an informational resource designed to assist licensed healthcare practitioners in caring for their patients and/or to serve consumers viewing this service as a supplement to, and not a substitute for, the expertise, skill, knowledge and judgment of healthcare practitioners. The absence of a warning for a given drug or drug combination in no way should be construed to indicate that the drug or drug combination is safe, effective or appropriate for any given patient. [employer] does not assume any responsibility for any aspect of healthcare administered with the aid of information [employer] provides. The information contained herein is not intended to cover all possible uses, directions, precautions, warnings, drug interactions, allergic reactions, or adverse effects. If you have questions about the drugs you are taking, check with your doctor, nurse or pharmacist. Copyright 0627-1386 [employer]. Version: 6.01. Revision Date: 09/03/2018. CIGARETTE SMOKING: The facts are clear, cigarette smoking will shorten your life. Smoking can cause many illnesses along the way. As a healthcare provider, we recommend that you stop smoking. Assistance with quitting is available by contacting 2-198-PJVH-NOW. This is a free resource providing counseling, support, and referral. Or you may contact your personal physician. STROKE is an EMERGENCY Every [employer] ACT F.A.S.T! FACE ?? Facial droop ?? Uneven smile ARM ?? Arm numbness ?? Arm weakness SPEECH ?? Slurred speech ?? Difficulty speaking or understanding TIME ?? Call 911 and get to the hospital immediately Have the ambulance go to the nearest stroke center. STROKE Risk Factors High blood pressure High cholesterol Heart Disease Diabetes Smoking Heavy alcohol use Physical inactivity and obesity Atrial Fibrillation (irregular heartbeat) Family history of stroke Reminder: Be sure to sign up for the [email or web address] patient portal, which gives you 03/06 access to your medical information ??? including these discharge instructions ??? using your computer, smartphone, or tablet. Just go to [employer] to get started. Questions? Call . [facility] would like to thank you for allowing us to assist you with your healthcare needs. Wendy, MARILYN TERRELL, (or territory sales representative) have received the above patient education materials/instructions and have verbalized understanding: Patient Signature _ Date/Time Patient Typewriter Assembly And Parts Inspector Signature (if needed) Date/Time Clinician/Hospital Typewriter Assembly And Parts Inspector Signature (if needed) Date/Time documented in this encounter Plan of Treatment Not on file documented as of this encounter Visit Diagnoses Not on filedocumented in this encounter
--- OUTSIDE RECORDS SUMMARY | 2024-09-29 14:35 | XMS_ITS | Encounter Summary ---
Author Organization [employer] Address [address] [place] [address] Care Team Providers Care Abrasive Grinder Name Role Phone Unavailable Primary Care Provider Unavailabl e Encounter Details Date Type Department Care Team (Late st Contact Info) Description 11/17/2018 Transcribed Document [facility] Family Medicine [address] [place] [address] ProviderHubert MD [address] [place] [address] Social History Tobacco Use Types Packs/Day Years Used Date Smoking Tobacco: Never Assessed Sex and Gender Information Value Date Recorded Sex Assigned at Male 05/10/2022 4:38 PM CDT Legal Sex Male 6:25 PM CDT Gender Identity Male 05/10/2022 4:38 PM CDT Sexual Orientation Not on file documented as of this encounter Miscellaneous Notes * Cerner Conversion Note - Historical Provider, - 11/17/2018 4:00 AM BODY BUILDER Height and Weight, Routine Entered On: 11/17/2018 5:20 EST Performed On: 11/17/2018 4:00 EST by [facility], [facility] Height and Weight, Routine Routine Weight Source : Bed scale Routine Weight Entry Format : Aiken Routine Weight, Pounds : 228 lb Routine Weight Calculation : 103.64 kg Height Source : Chart Height Entry Format : Aiken Height, Feet : 6 ft Height, Inches : 1 Inch Clinical Height : 185.42 cm Body Surface Area (BSA), Routine : 2.28 m2 Body Mass Index (BMI), Routine : 30.14 kg/m2 Mona Landry Biodiesel Plant Operations Engineer-Health Unit Coord - 11/17/2018 5:20 EST Electronically signed by Eyal [facility] Conversion Medical Geneticist Cerner at 02/28/2023 5:33 PM CDT documented in this encounter Plan of Treatment Not on file documented as of this encounter Visit Diagnoses Not on filedocumented in this encounter
--- OUTSIDE RECORDS SUMMARY | 2024-09-29 14:35 | XMS_ITS | Encounter Summary ---
Author Organization [employer] Address [address] [place] [address] Care Team Providers Care Brass Polisher Name Role Phone Unavailable Primary Care Provider Unavailabl e Encounter Details Date Type Department Care Team (Late st Contact Info) Description 11/18/2018 Transcribed Document [facility] [place] Family Medicine [address] [place], [place] [id number] ProviderHubert MD [address] [place] [address] Social History Tobacco Use Types Packs/Day Years Used Date Smoking Tobacco: Never Assessed Sex and Gender Information Value Date Recorded Sex Assigned at Male 05/10/2022 4:38 PM CDT Legal Sex Male 6:25 PM CDT Gender Identity Male 05/10/2022 4:38 PM CDT Sexual Orientation Not on file documented as of this encounter Miscellaneous Notes * Cerner Conversion Note - Historical Provider, - 11/18/2018 11:29 AM INDUSTRIAL TRUCK OPERATOR Care Management Assessment/Plan Entered On: 11/18/2018 11:33 EST Performed On: 11/18/2018 11:29 EST by EMEKA GAFFNEY, RN Care Management Note Care Management Note : Transfer from [facility] with chest pain and atrial fibrillation. consult with Cardiology. S/P DAVY. EF = 50% . S/P cardiac catheterization - medical management. Pt lives alone. Independent with ADLs. 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 Plan is home with family support Documentation Status Complete : Yes EMEKA GAFFNEY, TRUDI - 11/18/2018 11:29 EST Patient History Current Primary Care Physician : Hoang Foreman Durable Power of [facility] Name : Yes Medical Power of [facility] Copy to be Obtained from : Tay Ledesma Emergency Contact #1 : Tay Ledesma Emergency Contact #1 Emergency Contact #1 Relationship : POA and nephew Emergency Contact #2 : na Emergency Contact #2 Phone Number : na Emergency Contact #2 Relationship : na Living Situation : Home Patient Lives With : Alone Mobility Assistance Prior to Admission : Independent Current Daily Living Assistance : None Sensory Deficits : None Professional Skilled Services : None Current Home Treatments : None Home Equipment : None Special Services and Community Resources : None EMEKA GAFFNEY RN - 11/18/2018 11:29 EST Discharge Planning Details Discharge Home : Home with self Discharge Placement Needs : Home Persons Assisting Patient at Home, PSY : Family member(s) Transportation Needs : Family/Friend EMEKA GAFFNEY RN - 11/18/2018 11:29 EST Final Discharge Disposition Note-CM Discharge To Care Management : Home/Residential/Longterm or Self Care -01 EMEKA GAFFNEY RN - 11/18/2018 11:29 EST documented in this encounter Plan of Treatment Not on file documented as of this encounter Visit Diagnoses Not on filedocumented in this encounter
--- OUTSIDE RECORDS SUMMARY | 2024-09-29 14:35 | XMS_ITS | Encounter Summary ---
Author Organization [employer] Address [address] [place] [address] Care Team Providers Care Overcoiler Name Role Phone Unavailable Primary Care Provider Unavailabl e Encounter Details Date Type Department Care Team (Late st Contact Info) Description 11/18/2018 Transcribed Document [facility] [place] [address] [place] [address] ProviderHubert MD [address] [place] [id number] Social History Tobacco Use Types Packs/Day Years Used Date Smoking Tobacco: Never Assessed Sex and Gender Information Value Date Recorded Sex Assigned at Male 05/10/2022 4:38 PM CDT Legal Sex Male 6:25 PM CDT Gender Identity Male 05/10/2022 4:38 PM CDT Sexual Orientation Not on file documented as of this encounter Miscellaneous Notes * Cerner Conversion Note - Hubert ProviderMD - 11/18/2018 12:54 PM COMPLIANCE TESTER [address] [address] Patient Copy Patient Information: Name: MARILYN TERRELL Current Date: 11/18/2018 12:54:25 : 1945 Patient Address: [address] [address] Patient Attending Physician: HAKEEM LI MD Primary Care Provider: ALISSA PRAJAPATI (REF), -[facility] Primary Care Provider Discharge Diagnosis: Weight on Admission: 228 lb, 3 oz Weight at Discharge: 228 lb Comment: Discharge Instructions: Immunizations Documented During Stay: No Immunizations Found [...] cramping, rapid heartbeat, difficulty sleeping, and nervousness. CIGARETTE SMOKING: The facts are clear, cigarette smoking will shorten your life. Smoking can cause many illnesses along the way. As a healthcare provider, we recommend that you stop smoking. Assistance with quitting is available by contacting 0-188-GYKK-NOW. This is a free resource providing counseling, [...] Be sure to sign up for the [employer] patient portal, which gives you 03/06 access to your medical information ??? including these discharge instructions ??? using your computer, smartphone, or tablet. Just go to [employer] to get started. Questions? Call . [facility] would like to thank you for allowing us to assist you with your healthcare needs. MEGHA Nguyen HAROLD, (or account executive sales representative) have received the above patient education materials/instructions and have verbalized understanding: Patient Signature _ Date/Time Patient Hand Woodworking Sander Signature (if needed) Date/Time Clinician/Hospital Hand Woodworking Sander Signature (if needed) Date/Time documented in this encounter Plan of Treatment Not on file documented as of this encounter Visit Diagnoses Not on filedocumented in this encounter
--- OUTSIDE RECORDS SUMMARY | 2024-09-29 14:35 | XMS_ITS | Encounter Summary ---
Author Organization [employer] Address [address] [place] [address] Care Team Providers Care Rear Load Truck Driver Name Role Phone Unavailable Primary Care Provider Unavailabl e Encounter Details Date Type Department Care Team (Late st Contact Info) Description 11/21/2018 Transcribed Document [facility] [place] [facility] [address] [place] [address] ProviderHubert MD [place] [address] Social History Tobacco Use Types Packs/Day Years Used Date Smoking Tobacco: Never Assessed Sex and Gender Information Value Date Recorded Sex Assigned at Male 05/10/2022 4:38 PM CDT Legal Sex Male 6:25 PM CDT Gender Identity Male 05/10/2022 4:38 PM CDT Sexual Orientation Not on file documented as of this encounter Miscellaneous Notes * Cerner Conversion Note - Historical Provider, - 11/21/2018 10:11 AM SHELTER CASE MANAGER Post Visit Phone Call Entered On: 11/21/2018 10:14 EST Performed On: 11/21/2018 10:11 EST by EMEKA RIZVI RN Post Visit Phone Call Post Visit Phone Call History : First call, Second call, Third call, No answer Contact Relationship to Patient : Self Emergency Room Visit Since DC : No Symptoms of Fever : No Symptoms of Nausea or Vomiting : No Adequate Fluid Intake : Yes Food Intake, Post Visit : Good Bowel/Bladder Concerns : No Mobility Progressing or Maintained as Expected : Yes Using Continuous Passive Motion Machine : N/A Discharge Instructions Understood : Yes Follow-Up Actions : None EMEKA RIZVI, TRUDI - 11/21/2018 10:11 EST Electronically signed by Eyal [facility] Conversion Biofuels Plant Manager Cerner at 02/28/2023 5:46 PM CDT documented in this encounter Plan of Treatment Not on file documented as of this encounter Visit Diagnoses Not on filedocumented in this encounter
--- OUTSIDE RECORDS SUMMARY | 2024-09-29 14:35 | XMS_ITS | Encounter Summary ---
Author Organization [employer] Address [address] [place] [address] Care Team Providers Care Hebrew Teacher Name Role Phone Unavailable Primary Care Provider Unavailabl e Encounter Details Date Type Department Care Team (Late st Contact Info) Description 11/18/2018 Transcribed Document [facility] [place] [address] [place], [place] [id number] ProviderHubert MD [address] [place] [address] Social History Tobacco Use Types Packs/Day Years Used Date Smoking Tobacco: Never Assessed Sex and Gender Information Value Date Recorded Sex Assigned at Male 05/10/2022 4:38 PM CDT Legal Sex Male 6:25 PM CDT Gender Identity Male 05/10/2022 4:38 PM CDT Sexual Orientation Not on file documented as of this encounter Miscellaneous Notes * Cerner Conversion Note - Historical Provider, - 11/18/2018 1:00 PM DISPATCHER RELAY Nursing Discharge Summary Entered On: 11/18/2018 13:00 EST Performed On: 11/18/2018 13:00 EST by ARABELLA HOYT RN Discharge Documentation Discharge Date/Time : 11/18/2018 13:30 EST Patient Disposition, General : Discharge Discharge To : Home with ambulatory/outpatient follow-up Mode Of Departure, General Discharge : Private vehicle IV Discontinued : Yes Personal Belongings With Patient : Yes Prescriptions Given to Patient : Yes ARABELLA HOYT RN - 11/18/2018 13:00 EST documented in this encounter Plan of Treatment Not on file documented as of this encounter Visit Diagnoses Not on filedocumented in this encounter
--- OUTSIDE RECORDS SUMMARY | 2024-09-29 14:35 | XMS_ITS | Encounter Summary ---
Author Organization [employer] Address [address] [place] [address] Care Team Providers Care Chief Business Development Officer Name Role Phone Unavailable Primary Care Provider Unavailabl e Encounter Details Date Type Department Care Team (Late st Contact Info) Description 11/17/2018 Transcribed Document [facility] [place] [address] [place] [address] ProviderHubert MD [address] [place] [place], [place] [address] Social History Tobacco Use Types Packs/Day Years Used Date Smoking Tobacco: Never Assessed Sex and Gender Information Value Date Recorded Sex Assigned at Male 05/10/2022 4:38 PM CDT Legal Sex Male 6:25 PM CDT Gender Identity Male 05/10/2022 4:38 PM CDT Sexual Orientation Not on file documented as of this encounter Miscellaneous Notes * Cerner Conversion Note - Historical ProviderMD - 11/17/2018 8:20 PM COLLECTIONS REPRESENTATIVE Patient: MARILYN CLEVELAND Age: 73 years Sex: Male : 1945 Associated Diagnoses: None Author: EVELIO WHITNEY MD Basic Information No pain. Wants to go home Physical Examination VS/Measurements Vitals Signs (last 24 hrs) Last Charted Minimum Maximum Temp 98.7 (NOV 17 18:00) 97.7 (NOV 17 15:45) 98.4 (NOV 17 06:28) Apical HR 81 (NOV 17 21:20) 81 (NOV 17 21:20) 89 (NOV 17 07:53) Mon HR 67 (NOV 17 18:00) 65 (NOV 17 11:45) 89 (NOV 17 05:00) Resp Rate 18 (NOV 17 18:00) 16 (NOV 17 06:28) 20 (NOV 17 11:30) SBP 118 (NOV 17 18:00) 97 (NOV 17 11:30) 121 (NOV 17 15:45) DBP 82 (NOV 17 18:00) 61 (NOV 17 11:45) 85 (NOV 17 15:45) MAP 93 (NOV 17 18:00) 76 (NOV 17:28) 95 (NOV 17 15:45) SpO2 95 (NOV 17 18:00) 94 (NOV 17:28) 97 (NOV 17 11:00) General: no acute distress Neurologic: Awake, alert, and oriented X3, Moves all extremities. Eye: Pupils reactive and equal bilaterally. OP clear. Neck: No carotid bruits, no JVD, no lymphadenopathy Lungs: Clear to auscultation bilaterally. No wheezes. Heart: Regular rate and rhythm. No murmurs. Abdomen: Soft, non-tender, non-distended, normal bowel sounds, no masses Extremities: No edema. Full range of motion where tested. Skin: No rashes or lesions Review / Management Results review: Labs (Last four charted values) WBC H 10.5 (NOV 16) H 11.9 (NOV 16) H 13.2 (NOV 15) HB 15.2 (NOV 16) 14.4 (NOV 16) 16.1 (NOV 15) HCT 46.1 (NOV 16) 45.3 (NOV 16) 49.7 (NOV 15) Plt 232 (NOV 16) 207 (NOV 16) 217 (NOV 15) Na 138 (NOV 16) 138 (NOV 15) K 4.2 (NOV 16) 4.7 (NOV 15) Cl 108 (NOV 16) 109 (NOV 15) CO2 23 (NOV 16) 21 (NOV 15) BUN 22 (NOV 16) 20 (NOV 15) Cr 1.10 (NOV 16) 1.00 (NOV 15) Glu R H 127 (NOV 16) H 113 (NOV 15) Ca L 8.3 (NOV 16) 8.9 (NOV 15) PT 11.6 (NOV 16) INR 1.1 (NOV 16) AST H 57 (NOV 16) ALT H 92 (NOV 16) ALK P 97 (NOV 16) T Bili 1.2 (NOV 16) PTN 6.7 (NOV 16) ALB L 2.9 (NOV 16) Troponin <0.015 (NOV 16) <0.015 (NOV 15) . Impression and Plan Chest pain - cath today Results pending HR/BP control Meds per Cardio Home whrn cleared by cardiology 2. Afib - rate control. Annalise. documented in this encounter Plan of Treatment Not on file documented as of this encounter Visit Diagnoses Not on filedocumented in this encounter
--- OUTSIDE RECORDS SUMMARY | 2024-09-29 14:35 | XMS_ITS | Encounter Summary ---
Author Organization [employer] Address [address] [place] [address] Care Team Providers Care Container Crane Operator Name Role Phone Unavailable Primary Care Provider Unavailabl e Encounter Details Date Type Department Care Team (Late st Contact Info) Description 11/18/2018 Transcribed Document [facility] Family Medicine [address] [place] [address] ProviderHubert MD [address] [place] [id number] Social History Tobacco Use Types Packs/Day Years Used Date Smoking Tobacco: Never Assessed Sex and Gender Information Value Date Recorded Sex Assigned at Male 05/10/2022 4:38 PM CDT Legal Sex Male 6:25 PM CDT Gender Identity Male 05/10/2022 4:38 PM CDT Sexual Orientation Not on file documented as of this encounter Miscellaneous Notes * Cerner Conversion Note - Hubert ProviderMD - 11/18/2018 12:52 PM ARTIFICIAL STONE APPLICATOR [address] [address] Patient Copy Patient Information: Name: MARILYN TERRELL Current Date: 11/18/2018 12:52:47 : 1945 Patient Address: [address] [address] Patient Attending Physician: HAKEEM LI MD Primary Care Provider: ALISSA PRAJAPATI (REF), -[facility] Primary Care Provider Discharge Diagnosis: Weight on [...] Assistance with quitting is available by contacting 8-766-VHQU-NOW. This is a free resource providing counseling, [...] Be sure to sign up for the [employer] patient portal, which gives you 03/06 access to your medical information ??? including these discharge instructions ??? using your computer, smartphone, or tablet. Just go to [employer] to get started. Questions? Call . [facility] would like to thank you for allowing us to assist you with your healthcare needs. MEGHA Nguyen HAROLD, (or agency sales representative) have received the above patient education materials/instructions and have verbalized understanding: Patient Signature _ Date/Time Patient Head Of Operation And Logistics Signature (if needed) Date/Time Clinician/Hospital Head Of Operation And Logistics Signature (if needed) Date/Time Electronically signed by Eyla, Daphne Conversion Commercial Real Estate Associate Cerner at 02/28/2023 5:28 PM CDT documented in this encounter Plan of Treatment Not on file documented as of this encounter Visit Diagnoses Not on filedocumented in this encounter
--- OUTSIDE RECORDS SUMMARY | 2024-09-29 14:35 | XMS_ITS ---
Author Organization Unknown ALLERGIES AND ADVERSE REACTIONS No information ASSESSMENT No information CHIEF COMPLAINT No information MEDICATIONS No information OBJECTIVE DATA No information PHYSICAL EXAMINATION No information TREATMENT PLAN Planned Care Start Date Provider Encounter for Check-up [id number] [facility] PROBLEMS No information RESULTS No information REVIEW OF SYSTEMS No information SUBJECTIVE DATA No information VITAL SIGNS No information
--- OUTSIDE RECORDS SUMMARY | 2024-09-29 14:35 | XMS_ITS | Encounter Summary ---
Author Organization [employer] Address [address] [place] [address] Care Team Providers Care Back Tender Cloth Printing Name Role Phone Unavailable Primary Care Provider Unavailabl e Encounter Details Date Type Department Care Team (Late st Contact Info) Description 11/18/2018 Transcribed Document [facility] [place] Family Medicine [address] [place], [place] [id number] ProviderHubert MD [facility] [address] [place], [place] [address] Social History Tobacco Use Types Packs/Day Years Used Date Smoking Tobacco: Never Assessed Sex and Gender Information Value Date Recorded Sex Assigned at Male 05/10/2022 4:38 PM CDT Legal Sex Male 6:25 PM CDT Gender Identity Male 05/10/2022 4:38 PM CDT Sexual Orientation Not on file documented as of this encounter Miscellaneous Notes * Cerner Conversion Note - Historical ProviderMD - 11/18/2018 2:17 PM INDUSTRIAL ENGINEER Patient Education Materials Follows: Coronary Artery Disease, Male Coronary artery disease (CAD) is a process in which the blood vessels of the heart (coronary arteries) become narrow or blocked. The narrowing or blockage can lead to decreased blood flow to the heart muscle (angina). Prolonged reduced blood flow can cause a heart attack (myocardial infarction, [place]). Because CAD is the leading cause of [...] 05/25/2015 Document Revised: 04/04/2017 Document Reviewed: 03/01/2015 Else[employer]arrative Interactive Patient Education ? 2017 [employer]. Emergency Medicine Electrical Cardioversion Electrical cardioversion is the delivery [...] including vitamins, herbs, eye drops, creams, and uyuv-kjg-hqbundm medicines. ??? Any problems you or family [...] 10/18/2003 Document Revised: 06/26/2017 Document Reviewed: 05/03/2017 [employer] Interactive Patient Education ? 2017 [employer] Atrial Fibrillation Atrial fibrillation is a [...] ??? Certain heart rhythm disorders, such as Yngh-Rckbibovt-Zujfl syndrome. Other causes include: ??? Pneumonia. ??? [...] 10/28/2006 Document Revised: 03/06/2017 Document Reviewed: 02/22/2016 [employer] Interactive Patient Education ? 2017 [employer] Pulmonary Medicine Radial Site Care Introduction Refer to this [...] 04/04/2017 Document Reviewed: 05/16/2015 ? 2017 Elsevier Radiology Coronary Angiogram A coronary angiogram is an [...] including vitamins, herbs, eye drops, creams, and rrrw-krp-mxkbtyq medicines. ??? Any problems you or family [...] 05/03/2004 Document Revised: 08/09/2017 Document Reviewed: 08/09/2017 [employer] Interactive Patient Education ? 2017 [employer] Transesophageal Echocardiogram Transesophageal echocardiography (DAVY) is a [...] including vitamins, herbs, eye drops, creams, and jhei-omk-knfopqj medicines. ??? Previous problems you or members [...] 01/18/2004 Document Revised: 11/02/2014 Document Reviewed: 04/29/2014 [employer] Interactive Patient Education ? 2017 [employer] documented in this encounter Plan of Treatment Not on file documented as of this encounter Visit Diagnoses Not on filedocumented in this encounter
--- OUTSIDE RECORDS SUMMARY | 2024-09-29 14:35 | XMS_ITS | Encounter Summary ---
Author Organization [employer] Address [address] [place] [address] Care Team Providers Care Rubber Moulding Machine Operator Name Role Phone Unavailable Primary Care Provider Unavailabl e Encounter Details Date Type Department Care Team (Late st Contact Info) Description 11/18/[address] [facility] [address] [place] [address] Luis Eduardo Suárez MD [address] [place] [address] Social History Tobacco Use Types Packs/Day Years Used Date Smoking Tobacco: Never Assessed Sex and Gender Information Value Date Recorded Sex Assigned at Male 05/10/2022 4:38 PM CDT Legal Sex Male 6:25 PM CDT Gender Identity Male 05/10/2022 4:38 PM CDT Sexual Orientation Not on file documented as of this encounter Miscellaneous Notes * Cerner Conversion Note - Luis Eduardo Suárez MD - 11/18/2018 8:45 AM EST Patient: MARILYN TERRELL Age: 73 years Sex: Male : 1945 Associated Diagnoses: None Author: LUIS EDUARDO SUÁREZ MD-CAR Subjective NAD Health Status Current medications: (Selected) Inpatient Medications Ordered Colace: 100 mg, Oral, BID Dulcolax Laxative: 5 mg, Oral, Daily, PRN: Constipation DuoNeb 0.5 mg-2.5 mg/3 mL inhalation solution: 3 mL, Nebulized Inhalation, Q6H, PRN: Shortness of Breath Lipitor: 5 mg, Oral, MoWeFr MiraLax: 17 Gram, Oral, Daily, PRN: Constipation Normal Saline Flush: 5 mL, IV Push, See Comment, PRN: IV Use Sodium Chloride 0.9% intravenous solution 1,000 mL: 50 mL/Hr, IntraVENous Tylenol: 650 mg, Oral, Q4H, PRN: Pain (Mild 1-3) Xarelto: 20 mg, Oral, [id number] Zofran: 4 mg, IV Push, Q4H, PRN: Nausea amiodarone: 400 mg, Oral, BID aspirin: 81 mg, Oral, Daily dilTIAZem: 180 mg, Oral, Daily losartan: 25 mg, Oral, BID pantoprazole: 40 mg, Oral, Daily Objective Intake and Output 24 hour intake, 24 hour output VS/Measurements Vitals Signs (last 24 hrs) Last Charted Minimum Maximum Temp 97.9 (NOV 18:38) 97.9 (NOV 18:38) 98.7 (NOV 17 18:00) Apical HR 81 (NOV 17 21:20) 81 (NOV 17 21:20) 89 (NOV 17 07:53) Mon HR 83 (NOV 18:38) 65 (NOV 17 11:45) 83 (NOV 18:38) Resp Rate 16 (NOV 18:38) 16 (NOV 18:38) 20 (NOV 17 11:30) SBP 112 (NOV 18:38) 97 (NOV 17 11:30) 121 (NOV 17 15:45) DBP 80 (NOV 18:38) L 58 (NOV 17 23:00) 85 (NOV 17 15:45) MAP 91 (NOV 18:38) 76 (NOV 17 11:45) 95 (NOV 17 15:45) SpO2 97 (NOV 18:38) 95 (NOV 17 18:00) 99 (NOV 17 23:00) General: Alert and oriented, No acute distress. Eye: Pupils are equal, round and reactive to light. HENT: Normocephalic. Neck: Supple, Non-tender, No carotid bruit, No jugular venous distention. Respiratory: Lungs are clear to auscultation, Respirations are non-labored, Breath sounds are equal, Symmetrical chest wall expansion. Cardiovascular: Normal rate, Irregularly irregular rhythm, No murmur, No gallop, Good pulses equal in all extremities. Gastrointestinal: Soft, Non-tender, Non-distended, Normal bowel sounds. Musculoskeletal: Normal range of motion, Normal strength. Integumentary: Warm, Dry, [place]. Neurologic: Alert, Oriented. Psychiatric: Cooperative, Appropriate mood & affect. Results Review Telemetry NOV 18 00:33 140 110 22 / H 123 3.9 25 1.24 \ NOV 18 00:33 \ 13.9 / 8.8 222 / 42.9 \ Impression and Plan IMPRESSION: * Chest pain. - Abnormal Stress Test five months ago. [facility] 11/17/18--> non critical CAD - Echo (11-29) EF 50%, mild RV dysfunction, valves OK. - Negative troponin x2 at OSH - EKG: A fib. 99 BPM ? duration (not certain if paroxysmal or persistent)/initially Dx months ago. Refused DOAC previously - [facility] 11/17/18 ; Non-ciritical coronary stenosis * HTN * HLD - on Livalo PLAN; 11/18/18 Decrease Amiodarone to 400mg PO daily Continue Xarelto as formulated Follow up with Dr. Kidd as scheduled 11/16/18 L heart cath +/- PCI via R radial approach, including R/B discussed, pt agrees to proceed. Obtain records from Dr. Kyra Kidd office regarding AF/abnormal stress test. Amiodarone 400 mg po BID started. DAVY/DCC discussed, pt also agrees to proceeed. Stop Xarelto. IV UFH to start. 11/15/18 IV Amiodarone gtt. Hold Diltiazem. Start Xarelto 20 mg. Resume Livalo, losartan and ASA. Base labs by Primary Service. Reassess renal function. Check TSH. Lipid panel and Echo in AM. Trend troponin. NPO after midnight. Eventual ischemic evaluation. documented in this encounter Plan of Treatment Not on file documented as of this encounter Visit Diagnoses Not on filedocumented in this encounter
--- OUTSIDE RECORDS SUMMARY | 2024-09-29 14:35 | XMS_ITS | Encounter Summary ---
Author Organization [employer] Address [address] [place] [address] Care Team Providers Care English Drawer Name Role Phone Unavailable Primary Care Provider Unavailabl e Encounter Details Date Type Department Care Team (Late st Contact Info) Description 11/17/2018 Transcribed Document [facility] [place] [facility] Medicine [address] [place] [address] ProviderHubert MD [address] [place] [address] Social History Tobacco Use Types Packs/Day Years Used Date Smoking Tobacco: Never Assessed Sex and Gender Information Value Date Recorded Sex Assigned at Male 05/10/2022 4:38 PM CDT Legal Sex Male 6:25 PM CDT Gender Identity Male 05/10/2022 4:38 PM CDT Sexual Orientation Not on file documented as of this encounter Miscellaneous Notes * Cerner Conversion Note - Historical Provider, - 11/17/2018 2:00 AM INSPECTOR PRECISION Gear Grinding Machine Operator Details Entered On: 11/17/2018 5:20 EST Performed On: 11/17/2018 2:00 EST by Sagrario Bradford RN Order Details Transport Mode Order Detail : Wheelchair Isolation Precautions Order Detail : Contact precautions Order Detail : N/A IV Order Detail : 1 Oxygen Order Detail : 0 Nurse Collect Order Detail : 0 Lift/Transfer : Independent Central Line Order Detail : No Room Service : Appropriate Arterial Line : No Sagrario Bradford, TRUDI - 11/17/2018 5:20 EST documented in this encounter Plan of Treatment Not on file documented as of this encounter Visit Diagnoses Not on filedocumented in this encounter
--- OUTSIDE RECORDS SUMMARY | 2024-09-29 14:35 | XMS_ITS | Encounter Summary ---
Author Organization [employer] Address [address] [place] [address] Care Team Providers Care Viscose Cellar Worker Name Role Phone Unavailable Primary Care Provider Unavailabl e Encounter Details Date Type Department Care Team (Late st Contact Info) Description 11/20/[address] [facility] [address] [place] [address] ProviderHubert MD [facility] [place] [address] Social History Tobacco Use Types Packs/Day Years Used Date Smoking Tobacco: Never Assessed Sex and Gender Information Value Date Recorded Sex Assigned at Male 05/10/2022 4:38 PM CDT Legal Sex Male 6:25 PM CDT Gender Identity Male 05/10/2022 4:38 PM CDT Sexual Orientation Not on file documented as of this encounter Miscellaneous Notes * Cerner Conversion Note - Historical Provider, - 11/20/2018 12:19 PM AIRCRAFT INSTRUMENT REPAIRER Post Visit Phone Call Entered On: 11/20/2018 12:19 EST Performed On: 11/20/2018 12:19 EST by KAYDEN MCLEAN, RN Post Visit Phone Call Post Visit Phone Call History : First call, Second call, No answer KAYDEN MCLEAN, RN - 11/20/2018 12:19 EST Electronically signed by Eyal [facility] Conversion Mechanical Maintenance Engineer Cerner at 02/28/2023 5:36 PM CDT documented in this encounter Plan of Treatment Not on file documented as of this encounter Visit Diagnoses Not on filedocumented in this encounter
--- OUTSIDE RECORDS SUMMARY | 2024-09-29 14:35 | XMS_ITS | Clinical Summary ---
Author Organization [employer] Address [address] [place] [address] Care Team Providers Care Goodyear Welter Name Role Phone Unavailable Primary Care Provider Unavailabl e Social History Tobacco Use Types Packs/Day Years Used Date Smoking Tobacco: Never Assessed Sex and Gender Information Value Date Recorded Sex Assigned at Male 05/10/2022 4:38 PM CDT Legal Sex Male 6:25 PM CDT Gender Identity Male 05/10/2022 4:38 PM CDT Sexual Orientation Not on file Plan of Treatment Not on file
--- OUTSIDE RECORDS SUMMARY | 2024-09-29 14:35 | XMS_ITS | Referral Summary ---
Author Organization [employer] Address [address] [place] [address] Care Team Providers Care Licensed Surveyor Name Role Phone Unavailable Primary Care Provider [...]
--- OUTSIDE RECORDS SUMMARY | 2024-09-29 14:35 | XMS_ITS | Encounter Summary ---
Author Organization [employer] Address [address] [place] [address] Care Team Providers Care Field Agent Name Role Phone Unavailable Primary Care Provider Unavailabl e Encounter Details Date Type Department Care Team (Late st Contact Info) Description 11/18/2018 Transcribed Document [facility] [place] Family Medicine [address] [place] [address] ProviderHubert MD [address] [place] [address] Social History Tobacco Use Types Packs/Day Years Used Date Smoking Tobacco: Never Assessed Sex and Gender Information Value Date Recorded Sex Assigned at Male 05/10/2022 4:38 PM CDT Legal Sex Male 6:25 PM CDT Gender Identity Male 05/10/2022 4:38 PM CDT Sexual Orientation Not on file documented as of this encounter Miscellaneous Notes * Cerner Conversion Note - Historical ProviderMD - 11/18/2018 1:00 PM DOORPERSON OR LUGGAGE PORTER Discharge Instructions Entered On: 11/18/2018 13:01 EST Performed On: 11/18/2018 13:00 EST by ARABELLA HOYT RN DC Instructions HWD Stroke/TIA Discharge Ins : N/A Heart Failure Discharge Ins : N/A Warfarin Discharge Ins : N/A Diet After Discharge : Heart healthy diet Activity After Discharge : No strenuous activities, No heavy lifting over 10 pounds ARABELLA HOYT RN - 11/18/2018 13:00 EST documented in this encounter Plan of Treatment Not on file documented as of this encounter Visit Diagnoses Not on filedocumented in this encounter
--- OUTSIDE RECORDS SUMMARY | 2024-09-29 14:35 | XMS_ITS | Encounter Summary ---
Author Organization [employer] Address [address] [place] [address] Care Team Providers Care Supervisor Extrusion Name Role Phone Unavailable Primary Care Provider Unavailabl e Encounter Details Date Type Department Care Team (Late st Contact Info) Description 11/19/2018 Transcribed Document [facility] [place] [address] [place], [place] [id number] [facility] [place] [address] Social History Tobacco Use Types Packs/Day Years Used Date Smoking Tobacco: Never Assessed Sex and Gender Information Value Date Recorded Sex Assigned at Male 05/10/2022 4:38 PM CDT Legal Sex Male 6:25 PM CDT Gender Identity Male 05/10/2022 4:38 PM CDT Sexual Orientation Not on file documented as of this encounter Miscellaneous Notes * Cerner Conversion Note - Historical ProviderMD - 11/19/2018 3:18 PM PROCESS SAFETY ENGINEERING TECHNOLOGIST Post Visit Phone Call Entered On: 11/19/2018 15:19 EST Performed On: 11/19/2018 15:18 EST by Lavern Birmingham Rn Post Visit Phone Call Post Visit Phone Call History : First call, Left message Lavern Birmingham Rn - 11/19/2018 15:18 EST Electronically signed by Daphne Birch Conversion Therapeutic Recreation Assistant Cerner at 02/28/2023 5:32 PM CDT documented in this encounter Plan of Treatment Not on file documented as of this encounter Visit Diagnoses Not on filedocumented in this encounter
--- OUTSIDE RECORDS SUMMARY | 2024-09-29 14:35 | XMS_ITS | Encounter Summary ---
Author Organization [employer] Address [address] [place] [address] Care Team Providers Care Humanities Division Chair Name Role Phone Unavailable Primary Care Provider Unavailabl e Encounter Details Date Type Department Care Team (Late st Contact Info) Description 11/18/2018 Transcribed Document [facility] [place] Family Medicine [address] [place] [address] ProviderHubert MD [address] [place] [id number] Social History Tobacco Use Types Packs/Day Years Used Date Smoking Tobacco: Never Assessed Sex and Gender Information Value Date Recorded Sex Assigned at Male 05/10/2022 4:38 PM CDT Legal Sex Male 6:25 PM CDT Gender Identity Male 05/10/2022 4:38 PM CDT Sexual Orientation Not on file documented as of this encounter Miscellaneous Notes * Cerner Conversion Note - Hubert Provider, - 11/18/2018 2:17 PM WRAP TURNER [address] [place] [address] Patient Copy Patient Information: Name: MARILYN TERRELL Current Date: 11/18/2018 14:17:51 : 1945 Patient Address: [address] [address] Patient Attending Physician: HAKEEM LI MD Primary Care Provider: ALISSA PRAJAPATI (REF), -[facility] Primary Care Provider Discharge Diagnosis: Weight on Admission: 228 lb, 3 oz Weight at Discharge: 228 lb Comment: Follow-up Instructions: With: Address: When: MILY PAULSON [address], [place] [address] Business (1) 9:45 AM Discharge [...] 200 mg oral tablet) 2 Tablet(s) Oral Every Day for 30 Day(s). Refills: 0. Patient Instructions: New medication. Prescription provided. losartan (losartan 50 mg oral tablet) 1 Tablet(s) Oral Every Day. Refills: 0. Patient Instructions: Prescription provided. rivaroxaban (Xarelto 20 mg oral tablet) 1 Tablet(s) Oral Interval Every 24 Hours. Refills: 0. Patient Instructions: New medication. Prescription provided. Other Medications aspirin 81 Milligram(s) Oral Every Day. Patient Instructions: Please note: new directions. Take only 1 tablet daily dilTIAZem (DilTIAZem Hydrochloride CD 180 mg/24 hours oral capsule, extended release) 1 Capsule(s) Oral Every Day. omeprazole 20 Milligram(s) Oral Every Day. [...] can cause a heart attack (myocardial infarction, [place]). Because CAD is the leading cause of [...] 05/25/2015 Document Revised: 04/04/2017 Document Reviewed: 03/01/2015 [employer] Interactive Patient Education ? 2017 [employer] Coronary Angiogram A coronary angiogram is [...] including vitamins, herbs, eye drops, creams, and wgcn-cvy-txgxpeq medicines. ??? Any problems you or family [...] 05/03/2004 Document Revised: 08/09/2017 Document Reviewed: 08/09/2017 [employer] Interactive Patient Education ? 2017 [employer]. Radial Site Care Introduction Refer to [...] including vitamins, herbs, eye drops, creams, and oihh-cyy-bwzexyw medicines. ??? Previous problems you or members [...] 01/18/2004 Document Revised: 11/02/2014 Document Reviewed: 04/29/2014 [employer] Interactive Patient Education ? 2017 [employer]. Electrical Cardioversion Electrical cardioversion is the [...] including vitamins, herbs, eye drops, creams, and frld-gqo-negzxpg medicines. ??? Any problems you or family [...] 10/18/2003 Document Revised: 06/26/2017 Document Reviewed: 05/03/2017 [employer] Interactive Patient Education ? 2017 [employer]. Atrial Fibrillation Atrial fibrillation is a [...] ??? Certain heart rhythm disorders, such as Jhao-Gwbxpcami-Zqolb syndrome. Other causes include: ??? Pneumonia. ??? [...] 10/28/2006 Document Revised: 03/06/2017 Document Reviewed: 02/22/2016 [employer] Interactive Patient Education ? 2017 [employer]. Medication Leaflets: amiodarone (oral) (A mi [place] da michael) Pacerone What is the most important information [...] may report side effects to FDA at 9-680-BBF-1251. What other drugs will affect amiodarone? Sometimes [...] can affect amiodarone. This includes prescription and kpty-ens-appbayu medicines, vitamins, and herbal products. Not all [...] to ensure that the information provided by [employer]. ('[employer]') is accurate, up-to-date, and complete, but no guarantee is made to that effect. Drug information contained herein may be time sensitive. [employer] information has been compiled for use by healthcare practitioners and consumers in the [place] and therefore [employer] does not warrant that uses outside of the [place] are appropriate, unless specifically indicated otherwise. [employer]'s drug information does not endorse drugs, diagnose patients or recommend therapy. [employer] drug information is an informational resource designed [...] effective or appropriate for any given patient. [employer] does not assume any responsibility for any aspect of healthcare administered with the aid of information [employer] provides. The information contained herein is not intended to cover all possible uses, directions, precautions, warnings, drug interactions, allergic reactions, or adverse effects. If you have questions about the drugs you are taking, check with your doctor, nurse or pharmacist. Copyright 6058-0062 [employer]. Version: 7.01. Revision Date: 09/16/2018. rivaroxaban (GEORGE [...] may report side effects to FDA at 6-476-WOS-0708. What other drugs will affect rivaroxaban? Sometimes it is not safe to use certain medications at the same time. Some drugs can affect your blood levels of other drugs you take, which may increase side effects or make the medications less effective. Other drugs may affect rivaroxaban, including prescription and fexc-fse-ogzpnfe medicines, vitamins, and herbal products. Tell your [...] to ensure that the information provided by [employer]. ('[employer]') is accurate, up-to-date, and complete, but no guarantee is made to that effect. Drug information contained herein may be time sensitive. [employer]Quest information has been compiled for use by healthcare practitioners and consumers in the [place] and therefore [employer] does not warrant that uses outside of the [place] are appropriate, unless specifically indicated otherwise. [employer]'s drug information does not endorse drugs, diagnose patients or recommend therapy. [employer] drug information is an informational resource designed [...] effective or appropriate for any given patient. [employer] does not assume any responsibility for any aspect of healthcare administered with the aid of information [employer] provides. The information contained herein is not intended to cover all possible uses, directions, precautions, warnings, drug interactions, allergic reactions, or adverse effects. If you have questions about the drugs you are taking, check with your doctor, nurse or pharmacist. Copyright 5836-2737 [employer]. Version: 6.01. Revision Date: 09/03/2018. CIGARETTE SMOKING: The facts are clear, cigarette smoking will shorten your life. Smoking can cause many illnesses along the way. As a healthcare provider, we recommend that you stop smoking. Assistance with quitting is available by contacting 3-311-CASR-NOW. This is a free resource providing counseling, [...] Be sure to sign up for the My [facility] patient portal, which gives you 03/06 access to your medical information ??? including these discharge instructions ??? using your computer, smartphone, or tablet. Just go to [employer] to get started. Questions? Call . [facility] would like to thank you for allowing us to assist you with your healthcare needs. I, MARILYN TERRELL, (or assistance representative) have received the above patient education materials/instructions and have verbalized understanding: Patient Signature _ Date/Time Patient Community Aide Signature (if needed) Date/Time Clinician/Hospital Community Aide Signature (if needed) Date/Time documented in this encounter Plan of Treatment Not on file documented as of this encounter Visit Diagnoses Not on filedocumented in this encounter
--- OUTSIDE RECORDS SUMMARY | 2024-09-29 14:35 | XMS_ITS | Encounter Summary ---
Author Organization [employer] Address [address] [place] [address] Care Team Providers Care Supervisor Sewer System Name Role Phone Unavailable Primary Care Provider Unavailabl e Encounter Details Date Type Department Care Team (Late st Contact Info) Description 11/17/2018 Transcribed Document [facility] [place] Family Medicine [address] [place] [address] ProviderHubert MD [address] [place] [address] Social History Tobacco Use Types Packs/Day Years Used Date Smoking Tobacco: Never Assessed Sex and Gender Information Value Date Recorded Sex Assigned at Male 05/10/2022 4:38 PM CDT Legal Sex Male 6:25 PM CDT Gender Identity Male 05/10/2022 4:38 PM CDT Sexual Orientation Not on file documented as of this encounter Miscellaneous Notes * Cerner Conversion Note - Historical Provider, - 11/17/2018 9:[address] CLERK Spiritual Care Short Form Entered On: 11/17/2018 21:16 EST Performed On: 11/17/2018 21:14 EST by Blake Aldana Chaplain General Information, Spiritual Care Spiritual Care Referred by : Agency Sales Representative initiated Reason for Visit : Initial Ministry Provided to : Patient, Visitor Intervention/Comment/Summary Points : Rounding visit with patient and a friend of his. Robust conversation about various topics which all led to humorous stories. 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 Scientology Preference : No restorationism Blake Aldana Chaplain - 11/17/2018 21:14 EST documented in this encounter Plan of Treatment Not on file documented as of this encounter Visit Diagnoses Not on filedocumented in this encounter
--- OUTSIDE RECORDS SUMMARY | 2024-09-29 14:36 | XMS_ITS | Encounter Summary ---
[facility] Address [address] [place] [address] Care Team Providers Care Mophead Sewer Name Role Phone Robinson Manley MD Primary Care Provider [phone] Reason for Visit * Reason Comments Atrial Fibrillation Follow-up Encounter Details Date Type Department Care Team (Late st Contact Info) Description 06/16/2024 8:30 AM EDT Office Visit [facility] [address] [place] [address] Hannah Martinez, ORGAN GRINDER [address] [place] [address] Longstanding persistent atrial fibrillation (Primary Dx); Coronary artery disease involving [place] heart without angina pectoris, unspecified vessel or lesion type; Nonrheumatic mitral valve regurgitation; Essential hypertension Social History Tobacco Use Types Packs/Day Years Used Date Smoking Tobacco: Former Cigarettes Q uit: 1974 Passive Smoke Exposure: Past Smokeless Tobacco: Never Alcohol Use Standard Drinks/Week Comments Yes 0 (1 standard drink = 0.6 oz pur e alcohol) BEER PER [facility] Utilities Answer Date Recorded In the past 12 months has [employer], gas, oil, or water [employer] threatened to shut off services in your home? No 01/03/2024 Hunger Vital Sign Answer Date Recorded Within the past 12 months, y ou worried that your food would run out before you got the money to buy more. Never true 01/03/20 24 Within the past 12 months, t he food you bought just didn't last and you didn't have money to get more. Never true 01/03/2024 Abuse Screen Answer Date Recorded Feels Unsafe at Home or Work/School no 01/01/2024 Feels Threatened by Someone no 12/13 Does Anyone Try to Keep You From Having Contact with Others or Doing Things Outside Your Home? no 01/01/2024 Physical Signs of Abuse Present no 01/01/2024 Housing Stability Answer Date Recorded Current Living Arrangements home 12/13 Potentially Unsafe Housing Conditions unable to assess 01/03/2024 Family and Community Support Answer Hamlet e Recorded Help with Day-to-Day Activities Not on file 08/19/2023 Lonely or Isolated Not on file 08/19/2023 Employment Answer Date Recorded Do you want help finding or keeping work or a rocky b? Not on file 08/19/2023 Disabilities Answer Date Recorded Difficulty Concentrating, Remembering or Making Decisions no 01/01/2024 Difficulty Managing Errands Independently no 01/01/2024 Education Answer Date Recorded Help with school or training? Not on file Preferred Language Macedonian 01/03/2024 Sex and Gender Information Value Date Recorded Sex Assigned at Not on file Legal Sex Male 1:15 PM EDT Gender Identity Not on file Sexual Orientation Not on file documented as of this encounter Last Filed Vital Signs Vital Sign Reading Time Taken Comments Blood Pressure 130/76 06/16/2024 8:25 AM EDT Pulse 83 06/16/2024 8:25 AM EDT Temperature - - Respiratory Rate - - Oxygen Saturation 98% 06/16/2024 8:25 AM EDT Inhaled Oxygen Concentration - - Weight 97.1 kg (214 lb) 06/16/2024 8:25 AM EDT Height 185.4 cm (6' 0.99 ) 06/16/2024 8:25 AM ED T Body Mass Index 28.24 06/16/2024 8:25 AM EDT documented in this encounter Progress Notes * Hannah Martinez APRN - 06/16/2024 8:51 AM EDTAssociated Problem(s): Atrial fibrillation Chronic atrial fibrillation, rate controlled. He has previously been intolerant to beta-blockers due to hypotension. - Continue diltiazem and Xarelto at current doses * Hannah Martinez APRN - 06/16/2024 8:50 AM EDTAssociated Problem(s): Coronary artery disease involving [place] heart without angina pectoris Left heart cath in 2019 showed noncritical coronary stenosis (25-50% distal LAD stenosis). Patient is currently asymptomatic. He denies chest pain or worsening shortness of breath. 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 - Continue Livalo at current dose. * Hannah Martinez APRN - 06/16/2024 8:50 AM EDTAssociated Problem(s): Essential hypertension Hypertension is stable and controlled Continue current treatment regimen. Dietary sodium restriction. Weight loss. Regular aerobic exercise. Blood pressure will be reassessed in 6 months. * Hannah Martinez APRN - 06/16/2024 8:49 AM EDTAssociated Problem(s): Nonrheumatic mitral valve regurgitation Echocardiogram from 12/10/2023 showed moderate mitral valve regurgitation. Currently stable. - We will continue to monitor. * Hannah Martinez APRN - 06/16/2024 8:30 AM EDT Images from the original note were not included. [facility] Provider Note Date: 06/16/2024 Name: Santo Terrell : 1945 PCP: Robinson Manley MD Chief Complaint Patient presents with Atrial Fibrillation Follow-up Subjective History of Present Illness Santo Terrell is a 78 y.o. male who presents today for 6-month follow- up visit. He has a history of chronic atrial fibrillation, nonobstructive CAD, hypertension and moderate mitral regurgitation. He completed an echocardiogram on 12/11/2023 that revealed an LVEF of 59%, moderate mitral valve regurgitation and normal RVSP. EKG at last office visit showed atrial fibrillation with a rate of99 bpm. He underwent an L3-4 laminectomy in December and experienced a generalized clonic tonic seizure and postop. He was found to have a small subarachnoid hemorrhage likely from hitting his head after falling out of a recliner a couple days prior to surgery. He was on Keppra for short period of t [place] and then weaned off by neurology. He has had no further seizures or complications. He denies any current symptoms. He denies chest pain, palpitations, dizziness, weakness, lower extremity edema or syncope. Overall, patient is doing well today. Cardiac History 1. Chronic A-fib, not on beta-lorna due to hypotension 2. Non-obstructive CAD 3. Hypertension 4. MR-mild to moderate 5. Hyperlipidemia Echocardiogram 12/10/2023-LVEF 59%. Moderate mitral valve regurgitation. Normal RVSP. [facility] 11/17/18- Non-critical coronary stenosis. (25-50% distal LAD stenosis) Reports Denies Chest Pain [] [x] Shortness of Air [] [x] Palpitations [] [x] Edema [] [x] Dizziness [] [x] Syncope [] [x] Allergies Allergen Reactions Triple Antibiotic W/Hydrocortisone [Tzubhhk-Viaevcvh-Keacdmslm-Hc] Rash Codeine Other (See Comments) Knots on my head Current Outpatient Medications: allopurinol (ZYLOPRIM) 100 MG tablet, Take 1 tablet by mouth Daily., Disp: , Rfl: dilTIAZem CD (CARDIZEM CD) 240 MG 24 hr capsule, Take 1 capsule by mouth Daily., Disp: , Rfl: Livalo 4 MG tablet, Take 1 tablet by mouth Every Night., Disp: 90 tablet, Rfl: 1 naloxone (NARCAN) 4 MG/0.1ML nasal spray, Call 911. Don't prime. [place] in 1 nostril for overdose. Repeat in 2-3 minutes in other nostril if no or minimal breathing/responsiveness., Disp: 2 each, Rfl:0 omeprazole (priLOSEC) 20 MG capsule, Take 1 capsule by mouth Daily., Disp: , Rfl: probenecid (BENEMID) 500 MG tablet, Take 0.5 tablets by mouth Daily. 1/2 PILL QD, Disp: , Rfl: sennosides-docusate (senna-docusate sodium) 8.6-50 MG per tablet, Take 1 tablet by mouth Daily. Take while using hydrocodone to prevent constipation, Disp: 30 tablet, Rfl: 0 TART PELLETIER PO, Take 1 tablet by mouth Daily., Disp: , Rfl: Xarelto 20 MG tablet, TAKE 1 TABLET BY MOUTH EVERY DAY, Disp: 90 tablet, Rfl: 3 Past Medical History: Diagnosis Date Allergies PHOLCODINE TRIPLE ANTIBIOTIC Chronic atrial fibrillation Chronic atrial fibrillation, unspecified CKD (chronic kidney disease), stage III DDD (degenerative disc disease), lumbar Full dentures GERD without esophagitis Hypercholesterolemia Hypertension Mitral regurgitation 07/04/2022 MODERATE Nonrheumatic mitral (valve) insufficiency Paroxysmal atrial fibrillation SOB (shortness of breath) Wears glasses Past Surgical History: Procedure Laterality Date APPENDECTOMY BACK SURGERY LUMBAR DISC, UNSURE OF EXACT TYPE CHOLECYSTECTOMY LUMBAR LAMINECTOMY DISCECTOMY DECOMPRESSION N/A 01/01/2024 Procedure: LUMBAR LAMINECTOMY L3-4; Surgeon: Hank Guzman MD; Location: [facility] BEDS AT [facility]; Service: Neurosurgery; Laterality: N/A; SHOULDER ARTHROSCOPY Right TEETH EXTRACTION Family History Problem Relation Age of Onset Arthritis Mother Stroke Father Diabetes Sister Cancer Brother Social History Socioeconomic History Marital status: Single Tobacco Use Smoking status: Former Current packs/day: 0.00 Types: Cigarettes Quit date: 1973 Years since quittin.6 Passive exposure: Past Smokeless tobacco: Never Vaping Use Vaping status: Never Used Substance and Sexual Activity Alcohol use: Yes Comment: BEER PER [facility] Drug use: Never Sexual activity: Defer Objective Vital Signs: BP 130/76 Pulse 83 Ht 185.4 cm (72.99 ) Wt 97.1 kg (214 lb) SpO2 98% BMI 28.24 kg/m?? Estimated body mass index is 28.24 kg/m?? as calculated from the following: Height as of this encounter: 185.4 cm (72.99 ). Weight as of this encounter: 97.1 kg (214 lb). Physical Exam Vitals reviewed. Constitutional: Appearance: Normal appearance. HENT: Head: Normocephalic. Cardiovascular: Rate and Rhythm: Normal rate and regular rhythm. Heart sounds: Normal heart sounds. Pulmonary: Effort: Pulmonary effort is normal. Breath sounds: Normal breath sounds. Musculoskeletal: Right lower leg: No edema. Left lower leg: No edema. Skin: General: Skin is warm and dry. Capillary Refill: Capillary refill takes less than 2 seconds. Neurological: General: No focal deficit present. Mental Status: He is alert and oriented to person, place, and time. Psychiatric: Mood and Affect: Mood normal. Behavior: Behavior normal. Assessment and Plan Diagnoses and all orders for this visit: 1. Longstanding persistent atrial fibrillation (Primary) Assessment & Plan: Chronic atrial fibrillation, rate controlled. He has previously been intolerant to beta-blockers due to hypotension. - Continue diltiazem and Xarelto at current doses 2. Coronary artery disease involving [place] heart without angina pectoris, unspecified vessel or lesion type Assessment & Plan: Left heart cath in 2019 showed noncritical coronary stenosis (25-50% distal LAD stenosis). Patient is currently asymptomatic. He denies chest pain or worsening shortness of breath. 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 - Continue Livalo at current dose. 3. Nonrheumatic mitral valve regurgitation Assessment & Plan: Echocardiogram from 12/10/2023 showed moderate mitral valve regurgitation. Currently stable. - We will continue to monitor. 4. Essential hypertension Assessment & Plan: Hypertension is stable and controlled Continue current treatment regimen. Dietary sodium restriction. Weight loss. Regular aerobic exercise. Blood pressure will be reassessed in 6 months. Recommendations: Report if any new/changing symptoms immediately Follow Up Return in about 6 months (around 12/17/2024) for afib. Patient was given instructions and counseling regarding his condition or for health maintenance advice. Please see specific information pulled into the AVS if appropriate. documented in this encounter Plan of Treatment Upcoming Encounters Date Type Department Care Team (Late st Contact Info) Description 12/15/2024 8:30 AM EST Office Visit [facility] [address] [place] [phone] Hannah Martinez APRN [address] [address] 02/04/2025 9:00 AM EDT Office Visit [facility] [address] [facility] [address] [place] [address] Britany Braxton MD [address] [facility] [address] [place] [address] documented as of this encounter Visit Diagnoses Diagnosis Longstanding persistent atrial fibrillation- Primary Coronary artery disease involving [place] heart without angina pectoris, unspecified vessel or lesion type Nonrheumatic mitral valve regurgitation Essential hypertension Unspecified essential hypertension documented in this encounter Care Teams Mophead Sewer Relationship Specialty Start Date End Date Robinson Manley MD [address] [place] [address] PCP - General Family Medicine 07/09/23 documented as of this encounter
--- OUTSIDE RECORDS SUMMARY | 2024-09-29 14:36 | XMS_ITS | Encounter Summary ---
Author Organization [facility] Address [address] [place] [address] Care Team Providers Care College Tutor Name Role Phone Unavailable Primary Care Provider Unavailabl e Encounter Details Date Type Department Care Team (Late st Contact Info) Description 11/15/2018 Transcribed Document [facility] [place] [address] [place] [address] ProviderHubert MD [facility] [place] [address] Social History Tobacco Use Types Packs/Day Years Used Date Smoking Tobacco: Never Assessed Sex and Gender Information Value Date Recorded Sex Assigned at Male 05/10/2022 4:38 PM CDT Legal Sex Male 6:25 PM CDT Gender Identity Male 05/10/2022 4:38 PM CDT Sexual Orientation Not on file documented as of this encounter Miscellaneous Notes * Cerner Conversion Note - Historical Provider, - 11/15/2018 5:10 PM SOFTWARE DEVELOPMENT INTERN Admission History, Adult Entered On: 11/16/2018 4:32 EST Performed On: 11/15/2018 17:10 EST by Dennise Garcia Rn Advance Directive Patient has Advance Directive *Q : Yes, Advance Directive with the patient Advance Directive Type : Living will Copy Advance Directive Verified/on Chart : Yes Dennise Garcia Rn - 11/16/2018 4:29 EST Anesthesia/Transfusion History Family History of Anesthesia Reaction : No prior transfusion(s) Blood Transfusion Acceptable to Patient : Yes Transfusion History : Prior anesthesia without reaction Family History of Anesthesia Reaction : None Dennise Garcia Rn - 11/16/2018 4:29 EST Anticipated Discharge Needs Discharge To, Anticipated : Home Anticipated Discharge Needs at This Time : None Dennise Garcia Rn - 11/16/2018 4:29 EST Functional Assessment Living Situation : Home Patient Lives With : Alone Persons Assisting Patient at Home : Alone Current Daily Living Assistance : None Mobility Assistance Prior to Admission : Independent Current Home Treatments : None Home Equipment : None Dennise Garcia Rn - 11/16/2018 4:29 EST General Info Arrived From : Acute Care Facility Mode of Arrival on Unit : Stretcher Legal Guardian : Other: nephew Want Family/Rep/Phys Notified of Admit : No Emergency Contact #1 : Tay Ledesma Emergency Contact #1 Emergency Contact #1 Relationship : POA and nephew Emergency Contact #2 : na Emergency Contact #2 Phone Number : na Emergency Contact #2 Relationship : na Chief Complaint : chest pain Information Obtained From : Patient Primary Language : Kuwaiti Communication Barrier : None Dennise Garcia Rn - 11/16/2018 4:29 EST Fall Risk Scales ABCs Fall Injury Risk Identification : Age, Coagulation ABC Fall Injury Risk : Moderate to high injury risk SO Hx Falls Immediate/Within 3 Months : No So Secondary Diagnosis : Yes SO Use of Ambulatory Aid : Bed rest/Nurse assist SO IV Therapy or IV Access : Yes So Gait/Transferring : Normal, bedrest, immobile So Mental Status : Oriented to own ability So Fall Risk Score : 35 SO Fall Scale Risk Level : 25-45 Medium Risk [place] Fall Interventions : Adequate lighting, Assistive devices within reach, Bed in low position, Call device within reach, Fall prevention handout/education per facility policy, Frequent orientation to surroundings, Non-slip footwear, Personal items within reach, Reinforced to call for assistance before getting out of bed, Upper side-rails up, Wheels locked, Wires/Cords secured Dennise Garcia Rn - 11/16/2018 4:29 EST Fall Risk Education Grid Alarms : Verbalizes understanding Assistive Equipment Use : Verbalizes understanding Bed Height/Stabilization : Verbalizes understanding Call light use : Verbalizes understanding Door Open : Verbalizes understanding Environmental Management : Verbalizes understanding Eyeglasses Use : Verbalizes understanding Fall Community Resources : Verbalizes understanding Fall Contract/Letter : Verbalizes understanding Fall Prevention in the Home : Verbalizes understanding Fall Prevention Protocol : Verbalizes understanding Hearing Aid Use : Verbalizes understanding Home Risk Assessment : Verbalizes understanding Need Constant Observation : Verbalizes understanding Night Light Use : Verbalizes understanding Nonskid Footwear Use : Verbalizes understanding Notification of Staff When Leaving : Verbalizes understanding Orthostatic Hypotension Precautions : Verbalizes understanding Personal Article Availability : Verbalizes understanding Prevention Responsibility Family : Verbalizes understanding Prevention Responsibility Patient : Verbalizes understanding Risk Alert Methods : Verbalizes understanding Risk Factors : Verbalizes understanding Safety Aids : Verbalizes understanding Siderails use/risks : Verbalizes understanding Special Assistive Devices : Verbalizes understanding Staff Responsiveness : Verbalizes understanding Symptom Identification & Action Plan *Q : Verbalizes understanding Symptom Reporting : Verbalizes understanding Toileting Schedule : Verbalizes understanding Transfer/Mobility Techniques : Verbalizes understanding Urinal/Bedpan Availability : Verbalizes understanding Wait for Assistance : Verbalizes understanding Wheelchair Safety : Verbalizes understanding Dennise Garcia Rn - 11/16/2018 4:29 EST Barriers to Learning : None evident Individuals Taught : Patient Dennise Garcia Rn - 11/16/2018 4:29 EST Health Histories Smoking Status : Former smoker, quit more than 30 days ago Smokeless Tobacco Status : Never Dennise Garcia Rn - 11/16/2018 4:29 EST Social History (As Of: 11/16/2018 04:32:25 EST) Alcohol: Date/Time of Last Drink: drink approx 10 beers per month. (Last Updated: 11/15/2018 17:29:57 EST by Raisa Redman Rn) Height and Weight, Clinical Dosing Height Source : Chart Height Entry Format : [place] Height, Feet : 6 ft(Converted to: 183 cm, 72 Inch) Height, Inches : 1 Inch(Converted to: 0 ft 1 Inch, 2.54 cm) Clinical Height : 185.42 cm Weight Source : Bed scale Weight Entry Format : [place] Clinical Dosing Weight : 103.73 kg Weight, Pounds : 228.2 lb Body Surface Area (BSA) : 2.28 m2 Body Mass Index : 30.2 kg/m2 (HI) Bruce Body Weight : 79 kg Dennise Garcia Rn - 11/16/2018 4:29 EST Infectious Disease History Infectious Disease History : Chicken pox/Shingles, Measles, Mumps Isolation Needed : Contact Fever/Chills Last 48 Hours : No Travel To Regions with Travel Advisories : No Travel Outside [place] Within Last 30 Days : No Contact With Traveler to Advisory Region : No Tuberculosis Symptoms : None Dennise Garcia Rn - 11/16/2018 4:29 EST Tetanus Immunization Status Previous Tetanus Immunizations : No qualifying data available. Tetanus Immunization : Unknown Dennise Garcia Rn - 11/16/2018 4:29 EST Influenza Vaccine Asmt, Adult Previous Vaccines from Immunization Schedule : No qualifying data available. Influenza Immunization, Current Season : No Inactivated Flu Vaccine Contraindications : No contraindications to inactivated influenza vaccine Transplant Workup/Recent Transplant : No Order for Influenza Vaccine : Declined Vaccination Dennise Garcia Rn - 11/16/2018 4:29 EST Pneumococcal Vaccine Previous Vaccines from Immunization Schedule : No qualifying data available. Pneumonia Immunization Received : No Pneumococcal Risk Assessment < Age 65 : N/A- Patient 65 years of age or older Pneumococcal Vaccine Contraindications : No contraindications to pneumococcal vaccine Transplant Workup/Recent Transplant : No Order for Pneumococcal Vaccine : Declined Vaccination Dennise Garcia Rn - 11/16/2018 4:29 EST Order Details Transport Mode Order Detail : Wheelchair Isolation Precautions Order Detail : Contact precautions Order Detail : N/A IV Order Detail : 1 Oxygen Order Detail : 0 Nurse Collect Order Detail : 0 Lift/Transfer : Independent Central Line Order Detail : No Room Service : Appropriate Arterial Line : No Dennise Garcia Rn - 11/16/2018 4:29 EST Nutrition History Feeding Ability : Independent Adaptive Feeding Equipment : None Adaptive Feeding Equipment : Regular Oral Medication Administration : By mouth Eating Poorly Due to Decreased Appetite : No Unplanned Weight Loss in Past 3-6 Months : No Malnutrition Screening Tool Total(mal) : 0 Malnutrition Screening Tool Risk Level : Patient not at risk Dennise Garcia Rn - 11/16/2018 4:29 EST Psychosocial History Does Someone Depend on You for Care? : No Do You Have a History of the Following? : Patient denies history Currently in Unsafe Situation : No Tried to Harm Yourself in the Past? : No Thoughts of Harming/Killing Yourself : No Dennise Garcia Rn - 11/16/2018 4:29 EST Sleep Apnea Risk Assmt Hx of Obstructive Sleep Apnea Diagnosis : No Snore Loudly : Yes Tired, Fatigued, or Sleepy During Day : Yes Observed Stopping Breathing During Sleep : No Have/Are Being Treated for Hypertension : Yes STOP Sleep Apnea Risk Level Score : 3 STOP Sleep Apnea Risk Level : High Dennise Garcia Rn - 11/16/2018 4:29 EST Spiritual/Cultural Needs Significant Loss/Crisis in Past 3 Years : No Significant Distress/Coping/Need Support : No Any Spiritual/Cultural Needs or Requests : No Temple Preference : No quaker Dennise Garcia Rn - 11/16/2018 4:29 EST Valuables and Belongings Valuables and Belongings : Clothing, Jewelry, Personal devices, No comfort items, No personal items, No assistive devices, No respiratory devices, No medications Clothing : Common streetwear Clothing Disposition : With patient Personal Device Disposition : With patient Jewelry : Watch Jewelry Disposition : With patient Personal Devices : Dentures, upper, Dentures, lower Dennise Garcia Rn - 11/16/2018 4:29 EST documented in this encounter Plan of Treatment Not on file documented as of this encounter Visit Diagnoses Not on filedocumented in this encounter
--- OUTSIDE RECORDS SUMMARY | 2024-09-29 14:36 | XMS_ITS | Encounter Summary ---
Author Organization [employer] Address [address] [place] [address] Care Team Providers Care Marine Electrician Name Role Phone Unavailable Primary Care Provider Unavailabl e Encounter Details Date Type Department Care Team (Late st Contact Info) Description 11/16/2018 Transcribed Document [facility] [place] Family Medicine [address] [place], [place] [id number] ProviderHubert MD [facility] [place] [address] Social History Tobacco Use Types Packs/Day Years Used Date Smoking Tobacco: Never Assessed Sex and Gender Information Value Date Recorded Sex Assigned at Male 05/10/2022 4:38 PM CDT Legal Sex Male 6:25 PM CDT Gender Identity Male 05/10/2022 4:38 PM CDT Sexual Orientation Not on file documented as of this encounter Miscellaneous Notes * Cerner Conversion Note - Historical ProviderMD - 11/16/2018 8:25 AM LITIGATION EXAMINER Patient: MARILYN CLEVELAND Age: 73 years Sex: Male : 1945 Associated Diagnoses: None Author: RICHARD MINAYA MD-CAR Subjective NAD Health Status Allergies: Allergic Reactions (Selected) Severity Not Documented Codeine- No reactions were documented. Metoprolol- No reactions were documented. Promethazine- No reactions were documented. Triple Antibotic Ointment- No reactions were documented., Allergies (4) Active Reaction codeine None Documented metoprolol None Documented promethazine None Documented Triple Antibotic Ointment None Documented Current medications: (Selected) Inpatient Medications Ordered Colace: 100 mg, Oral, BID Dulcolax Laxative: 5 mg, Oral, Daily, PRN: Constipation DuoNeb 0.5 mg-2.5 mg/3 mL inhalation solution: 3 mL, Nebulized Inhalation, Q6H, PRN: Shortness of Breath Lipitor: 5 mg, Oral, MoWeFr MiraLax: 17 Gram, Oral, Daily, PRN: Constipation Sodium Chloride 0.9% intravenous solution 1,000 mL: 50 mL/Hr, IntraVENous Tylenol: 650 mg, Oral, Q4H, PRN: Pain (Mild 1-3) Xarelto: 20 mg, Oral, [id number] Zofran: 4 mg, IV Push, Q4H, PRN: Nausea amiodarone injection 450 mg + Dextrose 5% in Water intravenous solution 250 mL: Titrate, IntraVENous aspirin: 81 mg, Oral, Daily dilTIAZem: 180 mg, Oral, Daily heparin: 5,000 Units, SubCutaneous, Q8HInt losartan: 25 mg, Oral, BID pantoprazole: 40 mg, Oral, Daily Documented Medications Documented DilTIAZem Hydrochloride CD 180 mg/24 hours oral capsule, extended release: 1 Cap, Oral, Daily, 30 Cap, 0 Refill(s) Livalo 2 mg oral tablet: 0.5 Tab, MoWeFr, 0 Refill(s) aspirin: 81 mg, Oral, Daily, 0 Refill(s) losartan 25 mg oral tablet: 2 Tab, Oral, BID, 0 Refill(s) omeprazole: 20 mg, Oral, Daily, 0 Refill(s), Home Medications (5) Active aspirin 81 mg, Oral, Daily DilTIAZem Hydrochloride CD 180 mg/24 hours oral capsule, extended release 180 mg = 1 Cap, Oral, Daily Livalo 2 mg oral tablet 1 mg = 0.5 Tab, MoWeFr losartan 25 mg oral tablet 50 mg = 2 Tab, Oral, BID omeprazole 20 mg, Oral, Daily , Medications (15) Active Scheduled: (8) aspirin EC 81 mg tab 81 mg 1 Tab, Oral, Daily atorvastatin 10 mg tab 5 mg 0.5 Tab, Oral, MoWeFr diltiazem CR24 180 mg cap 180 mg 1 Cap, Oral, Daily docusate sodium 100 mg cap 100 mg 1 Cap, Oral, BID heparin 5,000 units/1 mL inj 5,000 Units 1 mL, SubCutaneous, Q8HInt losartan 25 mg tab 25 mg 1 Tab, Oral, BID pantoprazole EC 40 mg tab 40 mg 1 Tab, Oral, Daily rivaroxaban 20 mg tab 20 mg 1 Tab, Oral, [id number] Continuous: (2) amiodarone 450 mg + Dextrose 5% in Water 250 mL 250 mL, IntraVENous NaCl 0.9% 1,000 mL 1,000 mL, IntraVENous, 50 mL/Hr PRN: (5) acetaminophen 325 mg tab 650 mg 2 Tab, Oral, Q4H albuterol-ipratropium inh 3 mL 3 mL, Nebulized Inhalation, Q6H bisacodyl EC 5 mg tab 5 mg 1 Tab, Oral, Daily ondansetron 4 mg/2 mL inj 4 mg 2 mL, IV Push, Q4H polyethylene glycol 3350 pwd 17 g pkt 17 Gram 1 Packet, Oral, Daily Problem list: All Problems At risk for sleep apnea / IMO [id number] / Confirmed, Active Problems (1) At risk for sleep apnea Objective Intake and Output 24 hour intake, 24 hour output VS/Measurements Vitals Signs (last 24 hrs) Last Charted Minimum Maximum Temp 98.1 (NOV 16 06:00) 98.1 (NOV 16 06:00) H 99.8 (NOV 15:) Apical HR 95 (NOV 16 08:09) 95 (NOV 16 08:09) 95 (NOV 16 08:09) Mon HR 99 (NOV 16 06:00) 56 (NOV 16 04:45) 106 (NOV 16:45) Resp Rate 18 (NOV 16 06:00) 15 (NOV 16:30) 20 (NOV 15:22) SBP 120 (NOV 16 06:00) L 82 (NOV 16 05:00) H 144 (NOV 15:) DBP 83 (NOV 16 06:00) L 47 (NOV 16 04:30) H 91 (NOV 15:22) MAP 95 (NOV 16 06:00) 58 (NOV 16 04:30) 108 (NOV 15:22) SpO2 98 (NOV 16 06:00) L 91 (NOV 16:30) 98 (NOV 15:) General: Alert and oriented, No acute distress. [...] of motion, Normal strength. Integumentary: Warm, Dry, [place]. Neurologic: Alert, Oriented. Psychiatric: Cooperative, Appropriate mood & affect. Results Review Telemetry Admission Weight Todays Weight NOV 16 01:51 138 108 22 / H 127 4.2 23 1.10 \ NOV 16 01:51 \ 14.4 / H 11.9 207 / 45.3 \ Cardiac Markers (Current Encounter/Past 24 Hours) CK MB <1.00 ng/mL 11/16/2018 02:37 CK 61 Units/Liter 11/16/2018 02:37 ProBNP 493 pg/mL HI 11/15/2018 19:52 Radiology Results (Last 48 hours) [id number] -- 11/15/2018 17:13 CR Chest 1 Vw Portable (11/15/2018 18:26) Result: Single view chestINDICATION: Chest painFINDINGS:The lungs are clear. The cardiac silhouette is mildly enlarged..IMPRESSION: No acute abnormality Impression and Plan IMPRESSION: * Chest pain. Abnormal Stress Test five months ago. Refused cath previously. Echo (11-29) EF 50%, mild RV dysfunction, valves OK. - Negative troponin x2 at OSH - EKG: A fib. 99 BPM ? duration (not certain if paroxysmal or persistent)/initially Dx months ago. Refused DOAC previously * HTN * HLD - on Livalo PLAN; 11/16/18 L heart cath +/- PCI via [...]
--- OUTSIDE RECORDS SUMMARY | 2024-09-29 14:36 | XMS_ITS | Encounter Summary ---
Author Organization [employer] Address [address] [place] [address] Care Team Providers Care Ladle Liner Name Role Phone Unavailable Primary Care Provider Unavailabl e Encounter Details Date Type Department Care Team (Late st Contact Info) Description 11/17/2018 Transcribed Document [facility] [place] Family Medicine [address] [place], [place] [id number] ProviderHubert [place] [address] Social History Tobacco Use Types Packs/Day Years Used Date Smoking Tobacco: Never Assessed Sex and Gender Information Value Date Recorded Sex Assigned at Male 05/10/2022 4:38 PM CDT Legal Sex Male 6:25 PM CDT Gender Identity Male 05/10/2022 4:38 PM CDT Sexual Orientation Not on file documented as of this encounter Miscellaneous Notes * Cerner Conversion Note - Historical ProviderMD - 11/17/2018 5:00 AM CLINICAL LAB SCIENTIST Chart Check - Review Order Profile Entered On: 11/17/2018 5:19 EST Performed On: 11/17/2018 5:00 EST by Sagrario Bradford RN Chart Check All Active Orders Reviewed : Yes Sagrario Bradford RN - 11/17/2018 5:18 EST documented in this encounter Plan of Treatment Not on file documented as of this encounter Visit Diagnoses Not on filedocumented in this encounter
--- OUTSIDE RECORDS SUMMARY | 2024-09-29 14:36 | XMS_ITS | Clinical Summary ---
Author Organization [facility] Address [address] [place] [address] Care Team Providers Care Director Of Employee Development Name Role Phone Robinson Manley MD Primary Care Provider [phone] Allergies Active Allergy Reactions Criticality Noted Date Comments Codeine Other (See Comments) Low 11/28/2023 Knots on my head Qwzflyf-Wvghjqkh-Nta ymyxin-Hc Rash Medium 01/07/2023 Medications omeprazole (priLOSEC) 20 MG capsule Take 1 capsule by mouth Daily. Active allopurinol (ZYLOPRIM) 100 MG tablet Take 1 tablet by mouth Daily. 3 Active Livalo 4 MG tabletIndicatio ns:Hypercholest erolemia Take 1 tablet by mouth Every Night. 90 tablet 1 3 Active probenecid (BENEMID) 500 MG tablet Take 0.5 tablets by mouth Daily. 1/2 PILL QD Active TART PELLETIER PO Take 1 tablet by mouth Daily. Active sennosides-docu sate (senna-docusate sodium) 8.6-50 MG per tablet Take 1 tablet by mouth Daily. Take while using hydrocodone to prevent constipation 30 tablet 4 Active naloxone (NARCAN) 4 MG/0.1ML nasal spray Call 911. Don't prime. [place] in 1 nostril for overdose. Repeat in 2-3 minutes in other nostril if no or minimal breathing/respon siveness. 2 each 4 Active Xarelto 20 MG tabletIndicatio ns:Atrial fibrillation, unspecified type TAKE 1 TABLET BY MOUTH EVERY DAY 90 tablet 3 4 Active dilTIAZem CD (CARDIZEM CD) 240 MG 24 hr capsule Take 1 capsule by mouth Daily. Active Active Problems Problem Noted Date Diagnosed Date Spinal stenosis of lumbar re gion with neurogenic claudication 01/01/2024 Lumbar stenosis 01/01/2024 Seizure 01/01/2024 Preoperative clearance 12/17/2023 Assessment & Plan (12/17/2023 9:29 AM EST): EKG obtained today shows chronic atrial fibrillation with a rate of 99bpm. Patient has previously been intolerant to beta-blockers due to hypotension Echocardiogram from 12/10/23 showed an EF of 59%. Moderate MR and normal RVSP. LHC from 2019 showed non-critical coronary stenosis (25-50% LAD stenosis). He is currently symptomatic, he denies chest pain, SOB, palpitations, dizziness or syncope. I discussed patient with Dr Wyatt, he may proceed with surgery without further testing. We discussed the risks and benefits of holding Xarelto prior to surgery. He understands that his is at risk for a stroke while Xarelto is on hold. Nonrheumatic mitral valve regurgitation 07/09/20 Assessment & Plan (06/16/2024 8:49 AM EDT): Echocardiogram from 12/10/2023 showed moderate mitral valve regurgitation. Currently stable. - We will continue to monitor. Atrial fibrillation 01/07/2023 Assessment & Plan (06/16/2024 8:51 AM EDT): Chronic atrial fibrillation, rate controlled. He has previously been intolerant to beta-blockers due to hypotension. - Continue diltiazem and Xarelto at current doses Assessment & Plan (12/17/2023 9:31 AM EST): Chronic atrial fibrillation. EKG obtained today shows chronic atrial fibrillation with a rate of 99bpm. He just completed a high-dose prednisone pack for gout flare up. This could be contributing to his elevated heart rate. He is currently asymptomatic. Patient has previously been intolerant to beta-blockers due to hypotension . I discussed adding a low-dose beta lorna with Dr Wyatt and did not recommend starting a beta lorna at this time due to upcoming surgery. Assessment & Plan (12/11/2023 8:31 AM EST): Chronic atrial fibrillation. EKG today showed atrial fibrillation with a rate of 115 bpm. He is currently asymptomatic. He just started a high-dose prednisone pack for in the acute gout flareup. He took 60 mg of prednisone 2 hours prior to his visit today. He reports that his heart rate is usually within normal range. Patient is not currently on a beta-lorna due to previous issues with hypotension. -We will have patient return in 1 week after he completes prednisone and repeat EKG prior to cardiac clearance. Assessment & Plan (01/07/2023 11:03 AM EST): Updated EKG today. And chronic A-fib. Euvolemic. On Xarelto and rate controlled. Declines PSG. 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 Patient is currently asymptomatic. He denies chest pain or worsening shortness of breath. 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 - Continue Livalo at current dose. Assessment & Plan (12/11/2023 8:29 AM EST): Left heart cath in 2019 showed noncritical coronary stenosis (25-50% distal LAD stenosis). Patient is currently asymptomatic. He denies chest pain or worsening shortness of breath. 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 - Continue Livalo at current dose. Assessment & Plan (01/07/2023 11:04 AM EST): Very mild, on statin, cath November 2018 . Essential hypertension 01/07/2023 Assessment & Plan (06/16/2024 8:50 AM EDT): Hypertension is stable and controlled Continue current treatment regimen. Dietary sodium restriction. Weight loss. Regular aerobic exercise. Blood pressure will be reassessed in 6 months. Assessment & Plan (12/11/2023 8:30 AM EST): BP is elevated today due to severe back pain. Repeat blood pressure prior to discharge was 138/90. He is also on high-dose prednisone pack at this time. We will have him follow-up in 1 week to reassess heart rate and blood pressure after completing prednisone. Assessment & Plan (01/07/2023 11:04 AM EST): Not on meds due to hypotension with treatment. Blood pressure 125/88 at home today. Abnormal echocardiogram 01/07/2023 Assessment & Plan (01/07/2023 11:05 AM EST): Updated echo today. We will do annual echoes as patient reports we can do them as often as every 6 months but he has no intention of having another surgery at his age. Resolved Problems Problem Noted Date Diagnosed Date Resolved Date TUNDE (acute kidney injury) 01/01/2024 Family History Medical History Relation Name Comments Cancer Brother Stroke Father Arthritis Mother Diabetes Sister Relation Name Status Comments Brother Father (Age 82) Mother (Age 81) Sister Social History Tobacco Use Types Packs/Day Years Used Date Smoking Tobacco: Former Cigarettes Q uit: 1974 Passive Smoke Exposure: Past Smokeless Tobacco: Never Alcohol Use Standard Drinks/Week Comments Yes 0 (1 standard drink = 0.6 oz pur e alcohol) BEER PER [facility] Utilities Answer Date Recorded In the past 12 months has [employer], gas, oil, or water excentos threatened to shut off services in your [...] or training? Not on file Preferred Language British 01/03/2024 Sex and Gender Information Value Date Recorded Sex Assigned at Not on file Legal Sex Male 1:15 PM EDT Gender Identity Not on file Sexual Orientation Not on file Last Filed Vital Signs Vital Sign Reading Time Taken Comments Blood Pressure 130/76 06/16/2024 8:25 AM EDT Pulse 83 06/16/2024 8:25 AM EDT Temperature 36.2 ??C (97.1 ??F) 04/02/2024 9:00 AM ED T Respiratory Rate 16 01/07/2024 11:47 AM EST Oxygen Saturation 98% 06/16/2024 8:25 AM EDT Inhaled Oxygen Concentration - - Weight 97.1 kg (214 lb) 06/16/2024 8:25 AM EDT Height 185.4 cm (6' 0.99 ) 06/16/2024 8:25 AM ED T Body Mass Index 28.24 06/16/2024 8:25 AM EDT Plan of Treatment Upcoming Encounters Date Type Department Care Team (Late st Contact Info) Description 12/15/2024 8:30 AM EST Office Visit [facility] [address] [place] [id number] Hannah Martinez APRN [address] [id number] 02/04/2025 9:00 AM EDT Office Visit [facility] NEUROLOGY [address] [facility] [address] [place] [address] Britany Braxton MD [address] [facility] [address] [place] [address] Health Maintenance Due Date Last Done Comments LIPID PANEL 1945 TDAP/TD VACCINES (1 - Tdap) 1965 ZOSTER VACCINE (1 of 2) 1996 Pneumococcal Vaccine 65+ (1 of 1 - PCV) 2011 RSV Vaccine - Adults (1 - 1- dose 75+ series) 2021 ANNUAL WELLNESS VISIT 09/20/2022 HEPATITIS C SCREENING 09/20/2022 INFLUENZA VACCINE 06/11/2024 COVID-19 Vaccine (2 - season) 07/12/202402/2021 BMI FOLLOWUP 02/17/2025 02/18/2024, 12/10/2023 Medical Devices Implanted Type Area Plumbing Assembler Device Identifier Shelf Expiration Date Model / Serial / Lot Wax Bone Hemo Aesculap 2.5gm - [id number] Implanted:Qty : 1 on 01/01/2024 by Hank Guzman MD at [facility] Implant N/A: Spine Lumbar [employer] B [employer] CO [id number] / / Kt Seal Hemos Abs Floseal Matrx Fast/Prep 10ml - [id number] Implanted:Qty : 1 on 01/01/2024 by Hank Guzman MD at [facility] Implant N/A: Spine Lumbar [facility] [id number] / / Insurance [employer] Advance Directives Documents on File Type Date Recorded Patient Recreational Resort Manager Expl anation POWER OF EMERGENCY VEHICLE TECHNICIAN - SCAN 01/02/2024 11:29 AM POWER OF EMERGENCY VEHICLE TECHNICIAN FO R HEALTH CARE, [facility], 07/07/2018 LIVING WILL - SCAN 01/02/2024 11:26 AM ANSHUL ING WILL/HEALTH CARE SURROGATE, [facility], 07/07/2018 POWER OF EMERGENCY VEHICLE TECHNICIAN - SCAN 01/01/2024 10:45 AM POA 2023 * No CPR (Do Not Attempt to Resuscitate) (Latest Code Status on File) Date Activated Date Inactivated Comments 01/01/2024 11:06 PM 01/07/2024 6:56 PM Question Answer Comments Code Status (Patient has no pulse and is not breathing): No CPR (Do Not Attempt to Resuscitate) Medical Interventions (Patie nt has pulse or is breathing): Limited Support Medical Intervention Limits: NO artifici al nutritionNO intubation (DNI) * No CPR (Do Not Attempt to Resuscitate) Date Activated Date Inactivated Comments 01/01/2024 9:58 PM 01/01/2024 11:05 PM Question Answer Comments Code Status (Patient has no pulse and is not breathing): No CPR (Do Not Attempt to Resuscitate) Medical Interventions (Patie nt has pulse or is breathing): Limited Support Medical Intervention Limits: NO artificial nutri tion * CPR (Attempt to Resuscitate) Date Activated Date Inactivated Comments 01/01/2024 4:26 PM 01/01/2024 9:58 PM Question Answer Comments Code Status (Patient has no pulse and is not breathing): CPR (Attempt to Resuscitate) Medical Interventions (Patie nt has pulse or is breathing): Full Support Care Teams Director Of Employee Development Relationship Specialty Start Date End Date Robinson Manley MD [address] [place] [address] PCP - General Family Medicine 07/09/23
--- OUTSIDE RECORDS SUMMARY | 2024-09-29 14:36 | XMS_ITS | Encounter Summary ---
Author Organization [employer] Address [address] [place] [address] Care Team Providers Care Promotion Producer Name Role Phone Unavailable Primary Care Provider Unavailabl e Encounter Details Date Type Department Care Team (Late st Contact Info) Description 11/16/2018 Transcribed Document [facility] [place] Family Medicine [address] [place], [place] [id number] ProviderHubert MD [address] [place] [address] Social History Tobacco Use Types Packs/Day Years Used Date Smoking Tobacco: Never Assessed Sex and Gender Information Value Date Recorded Sex Assigned at Male 05/10/2022 4:38 PM CDT Legal Sex Male 6:25 PM CDT Gender Identity Male 05/10/2022 4:38 PM CDT Sexual Orientation Not on file documented as of this encounter Miscellaneous Notes * Cerner Conversion Note - Historical ProviderMD - 11/16/2018 5:00 AM PHOTO TECHNICIAN Chart Check - Review Order Profile Entered On: 11/16/2018 4:34 EST Performed On: 11/16/2018 5:00 EST by Dennise Garcia Rn Chart Check Chart Reviewed Date and Time : 11/16/2018 4:33 EST Powerplans Initiated/Discontinued as Appropriate : Yes All Active Orders Reviewed : Yes Dennise Garcia Rn - 11/16/2018 4:33 EST documented in this encounter Plan of Treatment Not on file documented as of this encounter Visit Diagnoses Not on filedocumented in this encounter
--- OUTSIDE RECORDS SUMMARY | 2024-09-29 14:36 | XMS_ITS | Encounter Summary ---
Author Organization [facility] ystem Address [address] [place] [address] Care Team Providers Care Project Manager Name Role Phone Robinson Manley MD Primary Care Provider [phone] Reason for Referral * Physical Therapy (Routine) - Authorized Specialty Diagnoses / Procedures Referred By Contac t Referred To Contact Physical Therapy Diagnoses S/P lumbar laminectomy Procedures [place] OFFICE/OUTPATIENT NEW MODERATE MDM 45 MINUTES Kenna Manley PA-C [address] [place] [address] Phone: tel: fax: [address] [address] Phone: tel: fax: Referral ID Status Reason Start Date Expiration Date Visits Requested Visits Authorized [id number] Authorized Patient Preference 02/18/2024 02/17/2025 1 1 Reason for Visit * Reason Comments Post-op Encounter Details Date Type Department Care Team (Late st Contact Info) Description 02/18/2024 9:30 AM EDT Office Visit [facility] NE[facility]ERY [address] [facility] [address] [place] [address] Kenna Manley PA-C [address] [place] [address] S/P lumbar laminectomy (Primary Dx) Social History Tobacco Use Types Packs/Day Years Used Date Smoking Tobacco: Former Cigarettes Q uit: 1974 Passive Smoke Exposure: Past Smokeless Tobacco: Never Tobacco Cessation:Counseling Given: No Alcohol Use Standard Drinks/Week Comments Yes 0 (1 standard drink = 0.6 oz pur e alcohol) BEER PER [facility] Utilities Answer Date Recorded In the past 12 months has th e electric, gas, oil, or water company threatened to shut off services in your [...] or training? Not on file Preferred Language Serbian 01/03/2024 Sex and Gender Information Value Date Recorded Sex Assigned at Not on file Legal Sex Male 1:15 PM EDT Gender Identity Not on file Sexual Orientation Not on file documented as of this encounter Last Filed Vital Signs Vital Sign Reading Time Taken Comments Blood Pressure - - Pulse - - Temperature 36.1 ??C (96.9 ??F) 02/18/2024 9:10 AM ED T Respiratory Rate - - Oxygen Saturation - - Inhaled Oxygen Concentration - - Weight 98.2 kg (216 lb 8 oz) 02/18/2024 9:10 AM EDT Height 185.4 cm (6' 0.99 ) 02/18/2024 9:10 AM ED T Body Mass Index 28.57 02/18/2024 9:10 AM EDT documented in this encounter Progress Notes * Kenna Manley PA-C - 02/18/2024 9:30 AM EDT Santo Terrell 1945 02/18/2024 [id number] CC: s/p L3-4 laminectomy HPI: Santo Terrell is a 78 y.o. male who is little over 6 weeks s/p L3- [address] Guzman. Preoperatively, patient was experiencing back pain and neurogenic claudication. Immediately postoperatively, patient experienced a generalized clonic tonic seizure and was found to have small subarachnoid hemorrhage likely from hitting his head after falling out of a recliner a couple days prior to surgery. He started on Keppra 500 mg twice daily. since her last visit, he has seen neurology who is tapered him off his Keppra. Denies any seizure-like activity since the event. Postoperatively, patient reports significant improvement in his lower extremity symptoms. He states he is able to stand and ambulate further distances. Past Medical History: Diagnosis Date Allergies PHOLCODINE TRIPLE ANTIBIOTIC Chronic atrial fibrillation Chronic atrial fibrillation, unspecified CKD (chronic kidney disease), stage III DDD (degenerative disc disease), lumbar Full dentures GERD without esophagitis Hypercholesterolemia Hypertension Mitral regurgitation 07/04/2022 MODERATE Nonrheumatic mitral (valve) insufficiency Paroxysmal atrial fibrillation SOB (shortness of breath) Wears glasses Allergies Allergen Reactions Triple Antibiotic W/Hydrocortisone [Nfopbog-Yuaromax-Jqcpupvrt-Hc] Rash Codeine Other (See Comments) Knots on my head Current Outpatient Medications: allopurinol (ZYLOPRIM) 100 MG tablet, Take 1 tablet by mouth Daily., Disp: , Rfl: Livalo 4 MG tablet, Take 1 tablet by mouth Every Night., Disp: 90 tablet, Rfl: 1 naloxone (NARCAN) 4 MG/0.1ML nasal spray, Call 911. Don't prime. [place] in 1 nostril for overdose. Repeat in [...] EVERY DAY, Disp: 90 tablet, Rfl: 3 Review of Systems Constitutional: Negative for activity change, appetite change, chills, diaphoresis, fatigue, fever and unexpected weight change. HENT: Negative for congestion, dental problem, drooling, ear discharge, ear pain, facial swelling, hearing loss, mouth sores, nosebleeds, postnasal drip, rhinorrhea, sinus pressure, sinus pain, sneezing, sore throat, tinnitus, trouble swallowing and voice change. Eyes: Negative for photophobia, pain, discharge, redness, itching and visual disturbance. Respiratory: Negative for apnea, cough, choking, chest tightness, shortness of breath, wheezing andstridor. Cardiovascular: Negative for chest pain, palpitations and leg swelling. Gastrointestinal: Negative for abdominal distention, abdominal pain, anal bleeding, blood in stool,constipation, diarrhea, nausea, rectal pain and vomiting. Endocrine: Negative for cold intolerance, heat intolerance, polydipsia, polyphagia and polyuria. Genitourinary: Negative for decreased urine volume, difficulty urinating, dysuria, enuresis, flank pain, frequency, genital sores, hematuria, penile discharge, penile pain, penile swelling, scrotal swelling, testicular pain and urgency. Musculoskeletal: Negative for arthralgias, back pain, gait problem, joint swelling, myalgias, neck pain and neck stiffness. Skin: Negative for color change, pallor, rash and wound. Allergic/Immunologic: Negative for environmental allergies, food allergies and immunocompromised state. Neurological: Negative for dizziness, tremors, seizures, syncope, facial asymmetry, speech difficulty, weakness, light-headedness, numbness and headaches. Hematological: Negative for adenopathy. Does not bruise/bleed easily. Psychiatric/Behavioral: Negative for agitation, behavioral problems, confusion, decreased concentration, dysphoric mood, hallucinations, self-injury, sleep disturbance and suicidal ideas. The patientis not nervous/anxious and is not hyperactive. PE: Temp 96.9 ??F (36.1 ??C) (Infrared) Ht 185.4 cm (72.99 ) Wt 98.2 kg (216 lb 8 oz) BMI 28.57 kg/m?? Neurologic Exam Awake, alert and oriented x 3 Speech f/c Opens eyes spontaneously Pupils 3 mm rx bilaterally Extraocular muscles intact bilaterally Visual rutledge full Normal sensation to light touch in all 3 distributions of CN V bilaterally Face symmetric bilaterally Tongue midline 5/5 bilateral lower extremities Social History Tobacco Use Smoking status: Former Packs/day: 0.00 Types: Cigarettes Quit date: 1973 Years since quittin.3 Passive exposure: Past Smokeless tobacco: Never Tobacco Use: Medium Risk (02/18/2024) Patient History Smoking Tobacco Use: Former Smokeless Tobacco Use: Never Passive Exposure: Past STEADI Fall Risk Assessment was completed, and patient is at LOW risk for falls.Assessment completed on:02/18/2024 Diagnoses and all orders for this visit: 1. S/P lumbar laminectomy (Primary) - Ambulatory Referral to Physical Therapy Evaluate and treat, POST OP Assessment/Plan This is a 78 y.o. male who is about 6 weeks s/p L3-[address] Guzman. Postoperatively, patient experienced general clonic tonic seizure and was found to have small subarachnoid hemorrhage likely from hitting his head after falling out of a recliner a couple days prior to surgery. He has seen neurology for follow-up who has weaned him off the Keppra. He has not had any seizure-like activity since. He reports significant improvement his lower extremity symptoms. Patient continues tonote subjective weakness of his lower extremities however he is full strength in bilateral lower extremities on exam. We will send him to physical therapy. Patient aware that he is not allowed to drive for total 3 months after his seizure. He will follow-up in about 6 weeks. Activities and restrictions were discussed. Patient encouraged to contact us if he has any changes in his condition or any concerns. Any copied data from previous notes included in the (1) HPI, (2) PE, (3) MDM and/or Assessment and Plan has been reviewed and is accurate as of 02/18/24 Kenna Manley PA-C 02/18/24 documented in this encounter Plan of Treatment Upcoming Encounters Date Type Department Care Team (Late st Contact Info) Description 12/15/2024 8:30 AM EST Office Visit [facility] CARDIOLOGY [address] [id number] Hannah Martinez APRN [address] [id number] 02/04/2025 9:00 AM EDT Office Visit [facility] NEUROLOGY [address] [place] [address] Britany Braxton MD [address] [place] [address] documented as of this encounter Visit Diagnoses Diagnosis S/P lumbar laminectomy- Primary documented in this encounter Care Teams Project Manager Relationship Specialty Start Date End Date Robinson Manley MD [address] [facility] [place] [address] PCP - General Family Medicine 07/09/23 documented as of this encounter
--- OUTSIDE RECORDS SUMMARY | 2024-09-29 14:36 | XMS_ITS | Encounter Summary ---
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 Role Phone Unavailable Primary Care Provider Unavailabl e Encounter Details Date Type Department Care Team (Late st Contact Info) Description 11/15/2018 Historic Encounter [facility] Radiology [address] [place] [address] ProviderBuddy Historical Social History Tobacco Use Types Packs/Day Years Used Date Smoking Tobacco: Never Assessed Sex and Gender Information Value Date Recorded Sex Assigned at Male 05/10/2022 4:38 PM CDT Legal Sex Male 6:25 PM CDT Gender Identity Male 05/10/2022 4:38 PM CDT Sexual Orientation Not on file documented as of this encounter Plan of Treatment Not on file documented as of this encounter Procedures Procedure Name Priority Date/Time Associated Diagnosis Comments CBC W/ AUTO DIFF ([facility] BKR DATA CONV) Routine 11/18/2018 12:33 AM EST AUTOMATED DIFFERENTIAL ([facility]KR DATA CONV) Routine 11/18/2018 12:33 AM EST BMP BASIC METABOLIC PANEL ([facility] BKR DATA CONV) Routine 11/18/2018 12:33 AM EST PTT HEPARIN PROTOCOL Routine 11/17/2018 6:08 AM EST PTT HEPARIN PROTOCOL Routine 11/17/2018 2:39 AM EST CBC W/ AUTO DIFF ([facility] BKR DATA CONV) Routine 11/16/2018 8:28 PM EST AUTOMATED DIFFERENTIAL ([facility] BKR DATA CONV) Routine 11/16/2018 8:28 PM EST PT/INR PROTHROMBIN TIME ([facility] BKR DATA CONV) Routine 11/16/2018 8:28 PM EST PTT HEPARIN PROTOCOL Routine 11/16/2018 8:28 PM EST CKMB ([facility] BKR DATA CONV) Routine 11/16/2018 11:46 AM EST CKMB ([facility] BKR DATA CONV) Routine 11/16/2018 1:51 AM EST CK CREATINE KINASE ([facility] BKR DATA CONV) Routine 11/16/2018 1:51 AM EST CBC W/ AUTO DIFF ([facility] BKR DATA CONV) Routine 11/16/2018 1:51 AM EST AUTOMATED DIFFERENTIAL ([facility] BKR DATA CONV) Routine 11/16/2018 1:51 AM EST MAGNESIUM LEVEL ([facility] BKR DATA CONV) Routine 11/16/2018 1:51 AM EST CMP COMPREHENSIVE METABOLIC PANEL ([facility] BKR DATA CONV) Routine 11/16/2018 1:51 AM EST TROPONIN I ULTRA ([facility] BKR DATA CONV) Routine 11/16/2018 1:51 AM EST LIPID PANEL Routine 11/16/2018 1:51 AM EST XR CHEST 1 VIEW PORTABLE / BEDSIDE STAT 11/15/2018 7:13 PM EST PROBNP ([facility] BKR DATA CONV Routine 11/15/2018 7:13 PM EST CKMB ([facility] BKR DATA CONV) Routine 11/15/2018 6:41 PM EST CK CREATINE KINASE ([facility] BKR DATA CONV) Routine 11/15/2018 6:41 PM EST CBC W/ AUTO DIFF ([facility] BKR DATA CONV) Routine 11/15/2018 6:41 PM EST AUTOMATED DIFFERENTIAL ([facility] BKR DATA CONV) Routine 11/15/2018 6:41 PM EST MAGNESIUM LEVEL ([facility] BKR DATA CONV) Routine 11/15/2018 6:41 PM EST BMP BASIC METABOLIC PANEL ([facility] BKR DATA CONV) Routine 11/15/2018 6:41 PM EST TROPONIN I ULTRA ([facility] BKR DATA CONV) Routine 11/15/2018 6:41 PM EST TSH Routine 11/15/2018 6:41 PM EST MRSA SCREEN Routine 11/15/2018 5:37 PM EST documented in this encounter Results * CBC W/ AUTO DIFF ([facility] BKR DATA CONV) (11/18/2018 12:33 AM EST) WBC 8.8 4.2 - 9.1 K/uL 11/18/2018 5:39 AM EST RBC 4.76 4.63 - 6.08 Million/uL 11/18/2018 5:39 AM EST Hgb 13.9 13.7 - 17.5 g/dL 11/18/2018 5:39 AM EST Hct 42.9 40.1 - 51.0 % 11/18/2018 5:39 AM EST MCV 90.1 79.0 - 94.8 fL 11/18/2018 5:39 AM EST MCH 29.2 25.6 - 32.2 pg 11/18/2018 5:39 AM EST MCHC 32.4 32.2 - 36.5 Gram/dL 11/18/2018 5:39 AM EST RDW 13.2 11.6 - 14.4 % 11/18/2018 5:39 AM EST Platelet Count 222 163 - 369 K/uL 11/18/2018 5:39 AM EST MPV 10.4 9.4 - 12.4 fL 11/18/2018 5:39 AM EST Slide Review No 11/18/2018 5:41 AM EST Blood 11/18/2018 12:3 3 AM EST 11/18/2018 5:[address] [facility] - 11/18/2018 5:41 AM EST while on Heparin [facility] Historical Provider LAB BLOOD ORDERABLES Fi nal Result [facility] [address] [place] [address], [facility] [phone] * (ABNORMAL) AUTOMATED DIFFERENTIAL ([facility] BKR DATA CONV) (11/18/2018 12:33 AM EST) Neut% 74.4(H) 34.0 - 71.0 % 11/18/2018 5:39 AM EST Lymph% 14.7(L) 19.3 - 53.1 % 11/18/2018 5:39 AM EST Calhoun% 8.8 3.0 - 9.0 % 11/18/2018 5:39 AM EST Eos% 0.9 0.0 - 7.0 % 11/18/2018 5:39 AM EST Baso% 0.5 0.0 - 1.5 % 11/18/2018 5:39 AM EST IG% 0.70(H) 0.00 - 0.60 % 11/18/2018 5:39 AM EST Neut# 6.54(H) 1.56 - 6.13 K/uL 11/18/2018 5:39 AM EST Lymph# 1.29 1.00 - 3.90 x10(3)/uL 11/18/2018 5:39 AM EST Calhoun# 0.77 0.16 - 1.00 K/uL 11/18/2018 5:39 AM EST Eos# 0.08 0.00 - 0.80 x10(3)/uL 11/18/2018 5:39 AM EST Baso# 0.04 0.00 - 0.20 x10(3)/uL 11/18/2018 5:39 AM EST IG# 0.06(H) 0.00 - 0.05 x10(3)/uL 11/18/2018 5:39 AM EST Blood 11/18/2018 12:3 3 AM EST 11/18/2018 5:[address] [facility] - 11/18/2018 5:41 AM EST Added by Discern Expert us [facility] Historical Provider LAB BLOOD ORDERABLES Fi nal Result [facility] [address] [place], [place] [address] [phone] * (ABNORMAL) BMP BASIC METABOLIC PANEL ([facility] BKR DATA CONV) (11/18/2018 12:33 AM EST) Glucose Level 123(H) 74 - 106 mg/dL 11/18/2018 6:22 AM EST Comment: [employer] has become aware of sulfasalazine and sulfapyridine drug interference in the assays ALT, AST, T4, CKMB, glucose, and ammonia. The probability of misinterpretation of results for the assays is remote and would be limited to scenarios where a patient has taken the drug and had a blood sample drawn before clearance of the drug to a level that does not interfere with laboratory testing. Venipuncture should occur prior to administration of the drug. Blood Urea Nitrogen 22 7 - 22 mg/dL 11/18/2018 6:22 AM EST Creatinine Level 1.24 0.70 - 1.30 mg/dL 11/18/2018 6:22 AM EST Sodium Level 140 136 - 146 mmol/L 11/18/2018 6:22 AM EST Potassium Level 3.9 3.5 - 5.1 mmol/L 11/18/2018 6:22 AM EST Chloride Level 110 102 - 112 mmol/L 11/18/2018 6:22 AM EST Carbon Dioxide Level 25 21 - 32 mmol/L 11/18/2018 6:22 AM EST Anion Gap 5(L) 9 - 20 11/18/2018 6:22 AM EST Calcium Level 8.2(L) 8.4 - 10.1 mg/dL 11/18/2018 6:22 AM EST Bun/Creatinine 17.7 8.0 - 20.0 11/18/2018 6:22 AM EST eGFR NonAfrican 57(L) >=60 mL/min/1. 73m2 11/18/2018 6:22 AM EST Comment: GFR <60 suggests chronic kidney disease, if found over 3 month period. GFR <15 indicates renal failure. eGFR 69 >=60 mL/min/1. 73m2 11/18/2018 6:22 AM EST Comment: GFR <60 suggests chronic kidney disease, if found over 3 month period. GFR <15 indicates renal failure. Blood 11/18/2018 12:3 3 AM EST 11/18/2018 5:36 AM EST [facility] Historical Provider LAB BLOOD ORDERABLES Fi nal Result Performing Organization Address City/[facility] Co de Phone Number [facility] [address] [phone] * (ABNORMAL) PTT Heparin Protocol (11/17/2018 6:08 AM EST) PTT Heparin 42.9(L) 45.0 - 65.0 Second(s) 11/17/2018 11:56 AM EST Blood 11/17/2018 6:08 AM EST 11/17/2018 11:40 AM EST [facility] Provider LAB BLOOD ORDERABLES Fi nal Result Performing Organization Address [facility] Co de Phone Number [facility] [address] [phone] * (ABNORMAL) PTT Heparin Protocol (11/17/2018 2:39 AM EST) PTT Heparin 169.7(AA) 45.0 - 65.0 Second(s) 11/17/2018 8:24 AM EST Comment: CALLED TO:Sagrario Bradford DATE/TIME CALLED:11/17/2018 03:24:43 EST READ BACK AND VERIFIED:Yes CALLED BY: YSABEL Blood 11/17/2018 2:39 AM EST 11/17/2018 7:55 AM EST [facility] Historical Provider MD LAB BLOOD ORDERABLES Final Result Performing Organization Address [facility] Co de Phone Number [facility] [address] [phone] * PT/INR PROTHROMBIN TIME ([facility] BKR DATA CONV) (11/16/2018 8:28 PM EST) PT 11.6 9.6 - 12.0 Second(s) 11/17/2018 2:13 AM EST INR 1.1 0.9 - 1.1 11/17/2018 2:13 AM EST Comment: DIAGNOSIS ?THERAPEUTIC RANGE a) Primary and secondary prevention of ?2.0-3.0 venous thrombosis b) Active venous thrombosis, pulmonary ?2.0-4.0 embolism and prevention of recurrent venous thrombosis c) Prevention of arterial thromboembolism ? 3.0-4.5 including patients with mechanical heart valves Blood 11/16/2018 8:28 PM EST 11/17/2018 2:01 AM EST [facility] Historical Provider LAB BLOOD ORDERABLES Fi nal Result [facility] [address] [place] [address] * (ABNORMAL) CBC W/ AUTO DIFF ([facility] BKR DATA CONV) (11/16/2018 8:28 PM EST) WBC 10.5(H) 4.2 - 9.1 K/uL 11/17/2018 2:03 AM EST RBC 5.10 4.63 - 6.08 Million/uL 11/17/2018 2:03 AM EST Hgb 15.2 13.7 - 17.5 g/dL 11/17/2018 2:03 AM EST Hct 46.1 40.1 - 51.0 % 11/17/2018 2:03 AM EST MCV 90.4 79.0 - 94.8 fL 11/17/2018 2:03 AM EST MCH 29.8 25.6 - 32.2 pg 11/17/2018 2:03 AM EST MCHC 33.0 32.2 - 36.5 Gram/dL 11/17/2018 2:03 AM EST RDW 13.2 11.6 - 14.4 % 11/17/2018 2:03 AM EST Platelet Count 232 163 - 369 K/uL 11/17/2018 2:03 AM EST MPV 10.7 9.4 - 12.4 fL 11/17/2018 2:03 AM EST Slide Review No 11/17/2018 2:05 AM EST Blood 11/16/2018 8:28 PM EST 11/17/2018 2:01 AM EST [facility] Historical Provider LAB BLOOD ORDERABLES Fi nal Result Performing Organization Address City/[facility]/ZIP Co de Phone Number [facility] [address] [phone] * (ABNORMAL) PTT Heparin Protocol (11/16/2018 8:28 PM EST) PTT Heparin 32.7(L) 45.0 - 65.0 Second(s) 11/17/2018 2:16 AM EST Blood 11/16/2018 8:28 PM EST 11/17/2018 2:01 AM EST [facility] Provider LAB BLOOD ORDERABLES Fi nal Result Performing Organization Address [facility] Co de Phone Number [facility] [address] [phone] * (ABNORMAL) AUTOMATED DIFFERENTIAL ([facility] BKR DATA CONV) (11/16/2018 8:28 PM EST) Neut% 74.3(H) 34.0 - 71.0 % 11/17/2018 2:03 AM EST Lymph% 15.3(L) 19.3 - 53.1 % 11/17/2018 2:03 AM EST Calhoun% 9.0 3.0 - 9.0 % 11/17/2018 2:03 AM EST Eos% 0.6 0.0 - 7.0 % 11/17/2018 2:03 AM EST Baso% 0.3 0.0 - 1.5 % 11/17/2018 2:03 AM EST IG% 0.50 0.00 - 0.60 % 11/17/2018 2:03 AM EST Neut# 7.81(H) 1.56 - 6.13 K/uL 11/17/2018 2:03 AM EST Lymph# 1.61 1.00 - 3.90 x10(3)/uL 11/17/2018 2:03 AM EST Calhoun# 0.95 0.16 - 1.00 K/uL 11/17/2018 2:03 AM EST Eos# 0.06 0.00 - 0.80 x10(3)/uL 11/17/2018 2:03 AM EST Baso# 0.03 0.00 - 0.20 x10(3)/uL 11/17/2018 2:03 AM EST IG# 0.05 0.00 - 0.05 x10(3)/uL 11/17/2018 2:03 AM EST Blood 11/16/2018 8:28 PM EST 11/17/2018 2:[address] [facility] - 11/17/2018 2:05 AM EST Added by Discern Expert [facility] Provider LAB BLOOD ORDERABLES Fi nal Result Performing Organization Address [facility]/ZIP Co de Phone Number [facility] [address] [phone] * CKMB ([facility] BKR DATA CONV) (11/16/2018 11:46 AM EST) CKMB <1.00 0.50 - 3.60 ng/mL 11/16/2018 5:32 PM EST Comment: CK-MB of > 5.0 ng/ml with a relative index of > 3.4 is highly suggestive of a myocardial infarction. [employer] has become aware of sulfasalazine and sulfapyridine drug interference in the assays ALT, AST, T4, CKMB, glucose, and ammonia. The probability of misinterpretation of results for the assays is remote and would be limited to scenarios where a patient has taken the drug and had a blood sample drawn before clearance of the drug to a level that does not interfere with laboratory testing. Venipuncture should occur prior to administration of the drug. Blood 11/16/2018 11:4 6 AM EST 11/16/2018 4:53 PM EST [facility] Provider LAB BLOOD ORDERABLES Fi nal Result Performing Organization Address City/[facility]/ZIP Co de Phone Number [facility] [address] [phone] * (ABNORMAL) AUTOMATED DIFFERENTIAL ([facility] BKR DATA CONV) (11/16/2018 1:51 AM EST) Neut% 76.9(H) 34.0 - 71.0 % 11/16/2018 6:58 AM EST Lymph% 13.5(L) 19.3 - 53.1 % 11/16/2018 6:58 AM EST Calhoun% 8.7 3.0 - 9.0 % 11/16/2018 6:58 AM EST Eos% 0.3 0.0 - 7.0 % 11/16/2018 6:58 AM EST Baso% 0.2 0.0 - 1.5 % 11/16/2018 6:58 AM EST IG% 0.40 0.00 - 0.60 % 11/16/2018 6:58 AM EST Neut# 9.12(H) 1.56 - 6.13 K/uL 11/16/2018 6:58 AM EST Lymph# 1.60 1.00 - 3.90 x10(3)/uL 11/16/2018 6:58 AM EST Calhoun# 1.03(H) 0.16 - 1.00 K/uL 11/16/2018 6:58 AM EST Eos# 0.04 0.00 - 0.80 x10(3)/uL 11/16/2018 6:58 AM EST Baso# 0.02 0.00 - 0.20 x10(3)/uL 11/16/2018 6:58 AM EST IG# 0.05 0.00 - 0.05 x10(3)/uL 11/16/2018 6:58 AM EST Blood 11/16/2018 1:51 AM EST 11/16/2018 6:[address] [facility] - 11/16/2018 7:07 AM EST Added by Discern Expert us [facility] Historical Provider LAB BLOOD ORDERABLES Fi nal Result [facility] [address] [place] [address], [facility] [phone] * CKMB ([facility] BKR DATA CONV) (11/16/2018 1:51 AM EST) CKMB <1.00 0.50 - 3.60 ng/mL 11/16/2018 7:36 AM EST Comment: CK-MB of > 5.0 ng/ml with a relative index of > 3.4 is highly suggestive of a myocardial infarction. [employer] has become aware of sulfasalazine and sulfapyridine drug interference in the assays ALT, AST, T4, CKMB, glucose, and ammonia. The probability of misinterpretation of results for the assays is remote and would be limited to scenarios where a patient has taken the drug and had a blood sample drawn before clearance of the drug to a level that does not interfere with laboratory testing. Venipuncture should occur prior to administration of the drug. Blood 11/16/2018 1:51 AM EST 11/16/2018 7:20 AM EST [facility] Historical Provider LAB BLOOD ORDERABLES Pending sale to [facility] Result [facility] [address] [phone] * (ABNORMAL) CMP COMPREHENSIVE METABOLIC PANEL ([facility] BKR DATA CONV) (11/16/2018 1:51 AM EST) Sodium Level 138 136 - 146 mmol/L 11/16/2018 7:23 AM EST Potassium Level 4.2 3.5 - 5.1 mmol/L 11/16/2018 7:23 AM EST Chloride Level 108 102 - 112 mmol/L 11/16/2018 7:23 AM EST Carbon Dioxide Level 23 21 - 32 mmol/L 11/16/2018 7:23 AM EST Anion Gap 11 9 - 20 11/16/2018 7:23 AM EST Calcium Level 8.3(L) 8.4 - 10.1 mg/dL 11/16/2018 7:23 AM EST Glucose Level 127(H) 74 - 106 mg/dL 11/16/2018 7:23 AM EST Comment: [employer] has become aware of sulfasalazine and sulfapyridine drug interference in the assays ALT, AST, T4, CKMB, glucose, and ammonia. The probability of misinterpretation of results for the assays is remote and would be limited to scenarios where a patient has taken the drug and had a blood sample drawn before clearance of the drug to a level that does not interfere with laboratory testing. Venipuncture should occur prior to administration of the drug. Blood Urea Nitrogen 22 7 - 22 mg/dL 11/16/2018 7:23 AM EST Creatinine Level 1.10 0.70 - 1.30 mg/dL 11/16/2018 7:23 AM EST Bun/Creatinine 20.0 8.0 - 20.0 11/16/2018 7:23 AM EST Albumin Level 2.9(L) 3.4 - 5.0 Gram/dL 11/16/2018 7:23 AM EST Protein, Total 6.7 6.4 - 8.2 Gram/dL 11/16/2018 7:23 AM EST A/G Ratio 0.8(L) 1.1 - 2.5 11/16/2018 7:23 AM EST Alk Phos 97 27 - 136 Units/Lit er 11/16/2018 7:23 AM EST ALT 92(H) 12 - 78 Units/Lit er 11/16/2018 7:23 AM EST Comment: [employer] has become aware of sulfasalazine and sulfapyridine drug interference in the assays ALT, AST, T4, CKMB, glucose, and ammonia. The probability of misinterpretation of results for the assays is remote and would be limited to scenarios where a patient has taken the drug and had a blood sample drawn before clearance of the drug to a level that does not interfere with laboratory testing. Venipuncture should occur prior to administration of the drug. AST 57(H) 5 - 37 Units/Lit er 11/16/2018 7:23 AM EST Comment: [employer] has become aware of sulfasalazine and sulfapyridine drug interference in the assays ALT, AST, T4, CKMB, glucose, and ammonia. The probability of misinterpretation of results for the assays is remote and would be limited to scenarios where a patient has taken the drug and had a blood sample drawn before clearance of the drug to a level that does not interfere with laboratory testing. Venipuncture should occur prior to administration of the drug. Bilirubin, Total 1.2 0.0 - 1.2 mg/dL 11/16/2018 7:23 AM EST Globulin 3.8 1.5 - 4.5 Gram/dL 11/16/2018 7:23 AM EST eGFR 80 >=60 mL/min/1. 73m2 11/16/2018 7:23 AM EST Comment: GFR <60 suggests chronic kidney disease, if found over 3 month period. GFR <15 indicates renal failure. eGFR NonAfrican 66 >=60 mL/min/1. 73m2 11/16/2018 7:23 AM EST Comment: GFR <60 suggests chronic kidney disease, if found over 3 month period. GFR <15 indicates renal failure. Blood 11/16/2018 1:51 AM EST 11/16/2018 7:08 AM EST [facility] Provider LAB BLOOD ORDERABLES Fi nal Result Performing Organization Address City/[facility]/ZIP Co de Phone Number [facility] [address] [phone] * MAGNESIUM LEVEL ([facility] BKR DATA CONV) (11/16/2018 1:51 AM EST) Magnesium Level 2.0 1.5 - 2.4 mg/dL 11/16/2018 7:23 AM EST Blood 11/16/2018 1:51 AM EST 11/16/2018 7:08 AM EST [facility] Provider LAB BLOOD ORDERABLES Fi nal Result Performing Organization Address City/[facility]/ZIP Co de Phone Number [facility] [address] [phone] * TROPONIN I ULTRA ([facility] BKR DATA CONV) (11/16/2018 1:51 AM EST) TroponinI Ultra <0.015 0.015 - 0.045 ng/mL 11/16/2018 7:24 AM EST Comment: Troponin Result (ng/ml) Interpretation 0.015 ? 0.045 Normal >0.045 Exceeds 99th percentile of normal range. Risk of future myocardial infarcts increases with concentration >0.599 Critical value Blood 11/16/2018 1:51 AM EST 11/16/2018 7:08 AM EST [facility] Historical Provider LAB BLOOD ORDERABLES Fi nal Result Performing Organization Address City/[facility]/ZIP Co de Phone Number [facility] [address] [phone] * (ABNORMAL) LIPID PANEL (11/16/2018 1:51 AM EST) Triglyceride 115 0 - 249 mg/dL 11/16/2018 7:23 AM EST Cholesterol HDL 36.0 mg/dL 9 7:23 AM EST Comment: Desirable > 60 mg/dl Increased Risk < 40 mg/dl Cholesterol Total 125 0 - 199 mg/dL 11/16/2018 7:23 AM EST Comment: 200 to 239 mg/dL Moderate (borderline) >239 mg/dL ?High Cholesterol VLDL Calculation 23 5 - 40 mg/dL 11/16/2018 7:23 AM EST Cholesterol LDL Calculation 66.0 0.0 - 99.0 mg/dL 11/16/2018 7:23 AM EST Comment: DESIRABLE ?<130 BORDERLINE ? 130 to 159 HIGH ? >=160 Cholesterol/HDL Ratio 3.5(H) 0.0 - 3.2 11/16/2018 7:23 AM EST LDL/HDL Ratio 1.8 0.0 - 3.6 11/16/2018 7:23 AM EST Blood 11/16/2018 1:51 AM EST 11/16/2018 7:08 AM EST [facility] Historical Provider PATHOLOGY/CYTOLOGY ORDE RABLES Final Result [facility] [address] [phone] * (ABNORMAL) CBC W/ AUTO DIFF ([facility] BKR DATA CONV) (11/16/2018 1:51 AM EST) WBC 11.9(H) 4.2 - 9.1 K/uL 11/16/2018 6:58 AM EST RBC 5.05 4.63 - 6.08 Million/uL 11/16/2018 6:58 AM EST Hgb 14.4 13.7 - 17.5 g/dL 11/16/2018 6:58 AM EST Hct 45.3 40.1 - 51.0 % 11/16/2018 6:58 AM EST MCV 89.7 79.0 - 94.8 fL 11/16/2018 6:58 AM EST MCH 28.5 25.6 - 32.2 pg 11/16/2018 6:58 AM EST MCHC 31.8(L) 32.2 - 36.5 Gram/dL 11/16/2018 6:58 AM EST RDW 13.4 11.6 - 14.4 % 11/16/2018 6:58 AM EST Platelet Count 207 163 - 369 K/uL 11/16/2018 6:58 AM EST MPV 10.5 9.4 - 12.4 fL 11/16/2018 6:58 AM EST Slide Review No 11/16/2018 7:07 AM EST Blood 11/16/2018 1:51 AM EST 11/16/2018 6:55 AM EST [facility] Provider LAB BLOOD ORDERABLES Fi nal Result [facility] [address] [place] [address] * CK CREATINE KINASE ([facility] DATA CONV) (11/16/2018 1:51 AM EST) CK 61 39 - 308 Units/Liter 11/16/2018 7:36 AM EST Blood 11/16/2018 1:51 AM EST 11/16/2018 7:20 AM EST [facility] Provider LAB BLOOD ORDERABLES Fi nal Result Performing Organization Address [facility]/State/ZIP Co de Phone Number [facility] [address] [phone] * XR chest 1 view portable / bedside (11/15/2018 7:13 PM EST) Anatomical Region Laterality Modality X-Ray 11/15/2018 7:13 PM EST Narrative 11/16/2018 12:34 AM EST Single view chest INDICATION: Chest pain FINDINGS: The lungs are clear. The cardiac silhouette is mildly enlarged.. IMPRESSION: No acute abnormality Procedure Note Provider, Hubert, - 02/26/2023 Single view chest INDICATION: Chest pain FINDINGS: The lungs are clear. The cardiac silhouette is mildly enlarged.. IMPRESSION: No acute abnormality [facility] Historical Provider IMG DIAGNOSTIC IMAGING ORDERABLES Final Result * (ABNORMAL) PROBNP ([facility] BKR DATA CONV (11/15/2018 7:13 PM EST) ProBNP 493(H) 0 - 125 pg/mL 11/16/2018 12:36 AM EST Blood 11/15/2018 7:13 PM EST 11/16/2018 1:00 AM EST [facility] Historical Provider LAB BLOOD ORDERABLES Fi nal Result Performing Organization Address City/State/[facility] Co de Phone Number [facility] [address] [phone] * (ABNORMAL) AUTOMATED DIFFERENTIAL ([facility] BKR DATA CONV) (11/15/2018 6:41 PM EST) Neut% 80.6(H) 34.0 - 71.0 % 11/16/2018 12:03 AM EST Lymph% 10.0(L) 19.3 - 53.1 % 11/16/2018 12:03 AM EST Calhoun% 8.5 3.0 - 9.0 % 11/16/2018 12:03 AM EST Eos% 0.2 0.0 - 7.0 % 11/16/2018 12:03 AM EST Baso% 0.2 0.0 - 1.5 % 11/16/2018 12:03 AM EST IG% 0.50 0.00 - 0.60 % 11/16/2018 12:03 AM EST Neut# 10.69(H) 1.56 - 6.13 K/uL 11/16/2018 12:03 AM EST Lymph# 1.33 1.00 - 3.90 x10(3)/uL 11/16/2018 12:03 AM EST Calhoun# 1.12(H) 0.16 - 1.00 K/uL 11/16/2018 12:03 AM EST Eos# 0.02 0.00 - 0.80 x10(3)/uL 11/16/2018 12:03 AM EST Baso# 0.02 0.00 - 0.20 x10(3)/uL 11/16/2018 12:03 AM EST IG# 0.06(H) 0.00 - 0.05 x10(3)/uL 11/16/2018 12:03 AM EST Blood 11/15/2018 6:41 PM EST 11/16/2018 12:[address] [facility] - 11/16/2018 12:03 AM EST Added by Discern Expert [facility] Provider LAB BLOOD ORDERABLES Fi nal Result Performing Organization Address [facility]/ZIP Co de Phone Number [facility] [address] [place] [address] * CK CREATINE KINASE ([facility] BKR DATA CONV) (11/15/2018 6:41 PM EST) CK 74 39 - 308 Units/Liter 11/16/2018 12:25 AM EST Blood 11/15/2018 6:41 PM EST 11/16/2018 12:01 AM EST [facility] Provider LAB BLOOD ORDERABLES Fi nal Result Performing Organization Address [facility]/ZIP Co de Phone Number [facility] [address] [place] [address] * CKMB ([facility] BKR DATA CONV) (11/15/2018 6:41 PM EST) CKMB <1.00 0.50 - 3.60 ng/mL 11/16/2018 12:30 AM EST Comment: CK-MB of > 5.0 ng/ml with a relative index of > 3.4 is highly suggestive of a myocardial infarction. [employer] has become aware of sulfasalazine and sulfapyridine drug interference in the assays ALT, AST, T4, CKMB, glucose, and ammonia. The probability of misinterpretation of results for the assays is remote and would be limited to scenarios where a patient has taken the drug and had a blood sample drawn before clearance of the drug to a level that does not interfere with laboratory testing. Venipuncture should occur prior to administration of the drug. Blood 11/15/2018 6:41 PM EST 11/16/2018 12:01 AM EST [facility] Historical Provider LAB BLOOD ORDERABLES Fi nal Result [facility] [address] [phone] * (ABNORMAL) BMP BASIC METABOLIC PANEL ([facility] BKR DATA CONV) (11/15/2018 6:41 PM EST) Glucose Level 113(H) 74 - 106 mg/dL 11/16/2018 12:29 AM EST Comment: [employer] has become aware of sulfasalazine and sulfapyridine drug interference in the assays ALT, AST, T4, CKMB, glucose, and ammonia. The probability of misinterpretation of results for the assays is remote and would be limited to scenarios where a patient has taken the drug and had a blood sample drawn before clearance of the drug to a level that does not interfere with laboratory testing. Venipuncture should occur prior to administration of the drug. Blood Urea Nitrogen 20 7 - 22 mg/dL 11/16/2018 12:29 AM EST Creatinine Level 1.00 0.70 - 1.30 mg/dL 11/16/2018 12:29 AM EST Sodium Level 138 136 - 146 mmol/L 11/16/2018 12:29 AM EST Potassium Level 4.7 3.5 - 5.1 mmol/L 11/16/2018 12:29 AM EST Chloride Level 109 102 - 112 mmol/L 11/16/2018 12:29 AM EST Carbon Dioxide Level 21 21 - 32 mmol/L 11/16/2018 12:29 AM EST Anion Gap 13 9 - 20 11/16/2018 12:29 AM EST Calcium Level 8.9 8.4 - 10.1 mg/dL 11/16/2018 12:29 AM EST Bun/Creatinine 20.0 8.0 - 20.0 11/16/2018 12:29 AM EST eGFR NonAfrican 73 >=60 mL/min/1. 73m2 11/16/2018 12:30 AM EST Comment: GFR <60 suggests chronic kidney disease, if found over 3 month period. GFR <15 indicates renal failure. eGFR 89 >=60 mL/min/1. 73m2 11/16/2018 12:30 AM EST Comment: GFR <60 suggests chronic kidney disease, if found over 3 month period. GFR <15 indicates renal failure. Blood 11/15/2018 6:41 PM EST 11/16/2018 12:01 AM EST [facility] Provider LAB BLOOD ORDERABLES Fi nal Result Performing Organization Address City/[facility] Co de Phone Number [facility] [address] [phone] * MAGNESIUM LEVEL ([facility] BKR DATA CONV) (11/15/2018 6:41 PM EST) Magnesium Level 2.0 1.5 - 2.4 mg/dL 11/16/2018 12:29 AM EST Blood 11/15/2018 6:41 PM EST 11/16/2018 12:01 AM EST [facility] Provider LAB BLOOD ORDERABLES Fi nal Result Performing Organization Address [facility]/ZIP Co de Phone Number [facility] [address] [phone] * TSH (11/15/2018 6:41 PM EST) TSH 1.110 0.358 - 3.740 mcInt Units/mL 11/16/2018 12:29 AM EST Blood 11/15/2018 6:41 PM EST 11/16/2018 12:01 AM EST [facility] Provider LAB BLOOD ORDERABLES Fi nal Result Performing Organization Address City/[facility]/ZIP Co de Phone Number [facility] [address] [phone] * TROPONIN I ULTRA ([facility] BKR DATA CONV) (11/15/2018 6:41 PM EST) Pathologist [facility] TroponinI Ultra <0.015 0.015 - 0.045 ng/mL 11/16/2018 12:24 AM EST Comment: Troponin Result (ng/ml) Interpretation 0.015 ? 0.045 Normal >0.045 Exceeds 99th percentile of normal range. Risk of future myocardial infarcts increases with concentration >0.599 Critical value Blood 11/15/2018 6:41 PM EST 11/16/2018 12:01 AM EST [facility] Historical Provider LAB BLOOD ORDERABLES Fi nal Result [facility] [address] [phone] * (ABNORMAL) CBC W/ AUTO DIFF ([facility] BKR DATA CONV) (11/15/2018 6:41 PM EST) [facility] WBC 13.2(H) 4.2 - 9.1 K/uL 11/16/2018 12:03 AM EST RBC 5.52 4.63 - 6.08 Million/uL 11/16/2018 12:03 AM EST Hgb 16.1 13.7 - 17.5 g/dL 11/16/2018 12:03 AM EST Hct 49.7 40.1 - 51.0 % 11/16/2018 12:03 AM EST MCV 90.0 79.0 - 94.8 fL 11/16/2018 12:03 AM EST MCH 29.2 25.6 - 32.2 pg 11/16/2018 12:03 AM EST MCHC 32.4 32.2 - 36.5 Gram/dL 11/16/2018 12:03 AM EST RDW 13.2 11.6 - 14.4 % 11/16/2018 12:03 AM EST Platelet Count 217 163 - 369 K/uL 11/16/2018 12:03 AM EST MPV 10.5 9.4 - 12.4 fL 11/16/2018 12:03 AM EST Slide Review No 11/16/2018 12:03 AM EST Blood 11/15/2018 6:41 PM EST 11/16/2018 12:01 AM EST [facility] Historical Provider LAB BLOOD ORDERABLES Fi nal Result Performing Organization Address City/[facility]/ZIP Co de Phone Number [facility] [address] [phone] * MRSA Screen (11/15/2018 5:37 PM EST) Final No MRSA isolated For Infection Control surveillance only. Final Nasal 11/15/2018 5:37 PM EST 11/16/2018 3:[address] [facility] - 11/17/2018 3:55 PM EST Order entered secondary to documenting Active Surveillance Screen Positive. [facility] Historical Provider MICROBIOLOGY - GENERAL ORDERABLES Final Result Performing Organization Address City/[facility]/ZIP Co de Phone Number [facility] [address] [phone] documented in this encounter Visit Diagnoses Not on filedocumented in this encounter
--- OUTSIDE RECORDS SUMMARY | 2024-09-29 14:36 | XMS_ITS | Encounter Summary ---
Author Organization [employer] Address [address] [place] [address] Care Team Providers Care Forming Department End Finder Name Role Phone Unavailable Primary Care Provider Unavailabl e Encounter Details Date Type Department Care Team (Late st Contact Info) Description 11/15/2018 Transcribed Document [facility] [place] Family Medicine [address] [place] [address] ProviderHubert MD [facility] [place], [place] [address] Social History Tobacco Use Types Packs/Day Years Used Date Smoking Tobacco: Never Assessed Sex and Gender Information Value Date Recorded Sex Assigned at Male 05/10/2022 4:38 PM CDT Legal Sex Male 6:25 PM CDT Gender Identity Male 05/10/2022 4:38 PM CDT Sexual Orientation Not on file documented as of this encounter Miscellaneous Notes * [employer]ner Conversion Note - Historical ProviderMD - 11/15/2018 6:33 PM COPY MANAGER Patient: MARILYN TERRELL Age: 73 years Sex: Male : 1945 Associated Diagnoses: None Author: MARILYN MCKEON JR, PA-C Basic Information PCP: ALISSA PRAJAPATI (REF), -[facility] Translator And Interpreter: Kyra Kidd Chief Complaint Chest pain History of Present Illness patient is a 73-year-old male with a PMH of abnormal stress test (refuse LHC recommended by his environmental emergencies planner), PAF (refused Eliquis), HTN and HLD who presents as a transfer from [facility] with complaints of chest pain. Patient reports progressively worsening chest pain yesterday into today. He reported to [facility] ER for evaluation. In the ER he was found to be in A. fib with RVR was given diltiazem and stayed in A. fib but rate normalized. Troponin negative ??2. patient was put on amiodarone drip and transferred to [facility] for higher level of care. At this time no labs have been drawn. In the emergency room at outside facility creatinine was 1.4, EGFR 53. Currently, patient is resting comfortably in NAD chest pain-free. Review of Systems Constitutional: Negative except as documented in history of present illness. Eye: Negative except as documented in history of present illness. Ear/Nose/Mouth/Throat: Negative except as documented in history of present illness. Respiratory: Negative except as documented in history of present illness. Cardiovascular: Negative except as documented in history of present illness. Gastrointestinal: Negative except as documented in history of present illness. Genitourinary: Negative except as documented in history of present illness. Hematology/Lymphatics: Negative except as documented in history of present illness. Endocrine: Negative except as documented in history of present illness. Immunologic: Negative except as documented in history of present illness. Musculoskeletal: Negative except as documented in history of present illness. Integumentary: Negative except as documented in history of present illness. Neurologic: Negative except as documented in history of present illness. Psychiatric: Negative except as documented in history of present illness. Health Status Allergies (4) Active Reaction codeine None Documented metoprolol None Documented promethazine None Documented Triple Antibotic Ointment None Documented Home Medications (5) Active aspirin 81 mg, Oral, Daily DilTIAZem Hydrochloride CD 180 mg/24 hours oral capsule, extended release 180 mg = 1 Cap, Oral, Daily Livalo 2 mg oral tablet 1 mg = 0.5 Tab, MoWeFr losartan 25 mg oral tablet 50 mg = 2 Tab, Oral, BID omeprazole 20 mg, Oral, Daily Allergies: Allergic Reactions (Selected) Severity Not Documented [...] Nebulized Inhalation, Q6H, PRN: Shortness of Breath MiraLax: 17 Gram, Oral, Daily, PRN: Constipation Sodium Chloride 0.9% intravenous solution 1,000 mL: 50 mL/Hr, IntraVENous Tylenol: 650 mg, Oral, Q4H, PRN: Pain (Mild 1-3) Zofran: 4 mg, IV Push, Q4H, PRN: Nausea heparin: 5,000 Units, SubCutaneous, Q8HInt Documented Medications Documented DilTIAZem Hydrochloride CD 180 mg/24 hours oral capsule, extended release: 1 Cap, Oral, Daily, 30 Cap, 0 Refill(s) Livalo 2 mg oral tablet: 0.5 Tab, MoWeFr, 0 Refill(s) aspirin: 81 mg, Oral, Daily, 0 Refill(s) losartan 25 mg oral tablet: 2 Tab, Oral, BID, 0 Refill(s) omeprazole: 20 mg, Oral, Daily, 0 Refill(s), Medications (8) Active Scheduled: (2) docusate sodium 100 mg cap 100 mg 1 Cap, Oral, BID heparin 5,000 units/1 mL inj 5,000 Units 1 mL, SubCutaneous, Q8HInt Continuous: (1) NaCl 0.9% 1,000 mL 1,000 mL, IntraVENous, [...] At risk for sleep apnea / IMO [id number] / Confirmed, Active Problems (1) At risk for sleep apnea Histories No education data available. Social & Psychosocial Habits Alcohol 11/15/2018 Date/Time of Last Drink drink approx 10 beers per month Past Medical History: No active or resolved past medical history items have been selected or recorded. Family History: No family history items have been selected or recorded. Procedure history: No active procedure history items have been selected or recorded. Social History Social & Psychosocial Habits Alcohol 11/15/2018 Date/Time of Last Drink drink approx 10 beers per month . Physical Examination VS/Measurements Vitals Signs (last 24 hrs) Last Charted Minimum Maximum Temp H 99.8 (NOV 15:) H 99.8 (NOV 15:) H 99.8 (NOV 15) Mon HR 93 (NOV 15:) 93 (NOV 15:) 93 (NOV 15) Resp Rate 20 (NOV 15) 20 (NOV 15) 20 (NOV 15) SBP H 144 (NOV 15) H 144 (NOV 15) H 144 (NOV 15) DBP H 91 (NOV 15) H 91 (NOV 15) H 91 (NOV 15) MAP 108 (NOV 15) 108 (NOV 15) 108 (NOV 15) SpO2 98 (NOV 15) 98 (NOV 15) 98 (NOV 15) General: Alert and oriented, No acute distress. [...] of motion, Normal strength. Integumentary: Warm, Dry, [place]. Neurologic: Alert, Oriented. Psychiatric: Cooperative, Appropriate mood & affect. Review / Management No qualifying data available Cardiac Markers (Current Encounter/Past 24 Hours) No Cardiac Marker Results Found (Past 24 Hours) Blood Gases (Current Encounter/Past 24 Hours) No Blood Gas Results Found (Past 24 Hours) No Radiology Results Found Results review: No qualifying data available. Impression and Plan IMPRESSION: * Chest pain. Abnormal Stress Test five months ago. Patient refused LHC recommended by Translator And Interpreter. - Negative troponin x2 at OSH - EKG: A fib. 99 BPM * Persistent vs paroxysmal AF - Dx 5 months ago. CHADSVASC 2. Not on OAC * HTN * HLD - on Livalo PLAN; IV Amiodarone gtt. Hold Diltiazem. Resume Livalo, losartan and ASA. Base labs by Primary Service. Reassess renal function. Check TSH. Lipid panel and Echo in AM. Trend troponin. Obtain med Records from Dr. Kidd' office. Will need L heart cath next wk. Electronically signed by Eyal, [facility] Conversion Washcoat Wiper Cerner at 02/28/2023 5:32 PM CDT documented in this encounter Plan of Treatment Not on file documented as of this encounter Visit Diagnoses Not on filedocumented in this encounter
--- OUTSIDE RECORDS SUMMARY | 2024-09-29 14:36 | XMS_ITS | Encounter Summary ---
Author Organization [employer] Address [address] [place] [address] Care Team Providers Care Geriatric Nurse Name Role Phone Unavailable Primary Care Provider Unavailabl e Encounter Details Date Type Department Care Team (Late st Contact Info) Description 11/15/2018 Transcribed Document [facility] [place] [address] [place] [address] ProviderHubert MD [address] [place] [address] Social History Tobacco Use Types Packs/Day Years Used Date Smoking Tobacco: Never Assessed Sex and Gender Information Value Date Recorded Sex Assigned at Male 05/10/2022 4:38 PM CDT Legal Sex Male 6:25 PM CDT Gender Identity Male 05/10/2022 4:38 PM CDT Sexual Orientation Not on file documented as of this encounter Miscellaneous Notes * [employer]ner Conversion Note - Historical Provider, - 11/15/2018 6:13 PM 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 Pickens on 11/15/18 at [phone] to [phone] KobojoRAYSAAlona - 11/15/2018 18:21 EST Electronically signed by [facility], [facility] Conversion Manager [employer]ner at 02/28/2023 5:33 PM CDT documented in this encounter Plan of Treatment Not on file documented as of this encounter Visit Diagnoses Not on filedocumented in this encounter
--- OUTSIDE RECORDS SUMMARY | 2024-09-29 14:36 | XMS_ITS | Encounter Summary ---
Author Organization [employer] Address [address] [place] [address] Care Team Providers Care Medicaid Collection Specialist Name Role Phone Unavailable Primary Care Provider Unavailabl e Encounter Details Date Type Department Care Team (Late st Contact Info) Description 11/16/2018 Transcribed Document [facility] [place] Family Medicine [address] [place] [address] ProviderHubert MD [address] [place] [address] Social History Tobacco Use Types Packs/Day Years Used Date Smoking Tobacco: Never Assessed Sex and Gender Information Value Date Recorded Sex Assigned at Male 05/10/2022 4:38 PM CDT Legal Sex Male 6:25 PM CDT Gender Identity Male 05/10/2022 4:38 PM CDT Sexual Orientation Not on file documented as of this encounter Miscellaneous Notes * [employer]ner Conversion Note - Historical Provider, - 11/16/2018 2:45 PM NUT STEAMER Therapy Screen, PT Entered On: 11/16/2018 14:46 EST Performed On: 11/16/2018 14:45 EST by KIMBERLY ESPINOZA, VIDYA Therapy Screen, PT Medical Chart Reviewed : Yes Person Providing Information : Family, Nurse, Patient Screen Completed : Yes Recommendation for Evaluation, PT : None Recommendations Upon Discharge : None Additional Therapy Screen Comment : Pt says the P.A. told him he would go home today and D/C summary written but no D/C order noted. Pt states he is ind already and family confirms. Declines need for PT eval for mobility. RN, Tatiana contreras. KIMBERLY ESPINOZA, PT - 11/16/2018 14:45 EST Electronically signed by Eyal [facility] Conversion Internal Review And Audit Compliance Cerner at 02/28/2023 5:32 PM CDT documented in this encounter Plan of Treatment Not on file documented as of this encounter Visit Diagnoses Not on filedocumented in this encounter
--- OUTSIDE RECORDS SUMMARY | 2024-09-29 14:36 | XMS_ITS | Encounter Summary ---
Author Organization [employer] Address [address] [place] [address] Care Team Providers Care Dishwasher Name Role Phone Unavailable Primary Care Provider Unavailabl e Encounter Details Date Type Department Care Team (Late st Contact Info) Description 11/15/2018 Transcribed Document [facility] Radiology [address] [place] [address] Luis Eduardo Belcher MD [address] [place] [address] [place] [address] Social History Tobacco Use Types Packs/Day Years Used Date Smoking Tobacco: Never Assessed Sex and Gender Information Value Date Recorded Sex Assigned at Male 05/10/2022 4:38 PM CDT Legal Sex Male 6:25 PM CDT Gender Identity Male 05/10/2022 4:38 PM CDT Sexual Orientation Not on file documented as of this encounter Miscellaneous Notes * Cerner Conversion Note - Luis Eduardo Belcher MD - 11/15/2018 7:50 PM EST Patient: MARILYN TERRELL Age: 73 Years Sex: Male : 1945 Chief Complaint chest pain History of Present Illness 73-year-old white gentleman history of atrial fibrillation with RVR presents to outside facility [facility] with chest pain started 2:30 AM the middle of his chest 8 / 10 only improved with IV morphine at the outside facility. No fevers or chills. No nausea vomiting. No diarrhea constipation. No dysuria hematuria. The ER at the outside facility discussed patient Dr. Drew Pickens and request the patient be transferred to [facility] by cardiology and admitted by the internal medicine group Review of Systems Constitutional: [No fevers, chills, sweats] Eye: [No recent visual problems, eye discharge, eye pain, redness] HEENT: [No ear pain, nasal congestion, sore throat, voice changes] Respiratory: [No shortness of breath, cough, pain on breathing, sputum production] Cardiovascular: [No Chest pain, palpitations, syncope, shortness of breath while laying flat] chest pain. Gastrointestinal: [No nausea, vomiting, diarrhea, constipation] Genitourinary: [No hematuria, dysuria, incontinence, lesions on genitalia] [place]/Lymph: [Negative for bruising tendency, swollen lymph glands, nosebleeds, history of anticoagulation] Endocrine: [Negative for excessive thirst, excessive hunger, excessive urination, heat or cold intolerance] Musculoskeletal: [No back pain, neck pain, joint pain, muscle pain, decreased range of motion] Integumentary: [No rash, pruritus, abrasions, lesions] Neurologic: [No weakness, numbness, frequent headaches, tremors, blackouts] Psychiatric: [No anxiety, depression, mood changes, hallucinations] Physical Exam Vitals & Measurements T: 37.7 ??C HR: 93 (Monitored) RR: 20 BP: 144/91 MAP: 108 SpO2: 98% HT: 185.42 cm WT: 103.73 kg BMI: 30.2 General: [Alert and oriented, well nourished, no acute distress]. Neurologic: [Awake, alert, and oriented X3, CN II-XII intact]. Eye: [PERRL, EOMI, normal conjuctiva]. HENT: [Normocephalic, clear tympanic membranes, normal hearing, moist oral mucosa, no scleral icterus, no sinus tenderness]. Neck: [Supple, non-tender, no carotid bruits, no JVD, no lymphadenopathy]. Lungs: [Clear to auscultation and percussion, non-labored respiration]. Heart: [Normal rate, regular rhythm, no murmur, gallop or edema]. Abdomen: [Soft, non-tender, non-distended, normal bowel sounds, no masses]. Musculoskeletal: [Normal range of motion and strength, no tenderness or swelling]. Skin: [Skin is warm, dry and pink, no rashes or lesions]. Psychiatric: [Cooperative, appropriate mood and affect]. Assessment/Plan Ordered: acetaminophen, 650 mg, Oral, Tab, Q4H, PRN for Pain (Mild 1-3), Routine, Start 11/15/18 18:13:00 EST albuterol-ipratropium, 3 mL, Nebulized Inhalation, Inh, Q6H, PRN for Shortness of Breath, Routine, Start 11/15/18 18:13:00 EST aspirin, 81 mg, Oral, Daily, Routine, Start 11/16/18 9:00:00 EST bisacodyl, 5 mg, Oral, EC Tab, Daily, PRN for Constipation, Routine, Start 11/15/18 18:13:00 EST docusate, 100 mg, Oral, Cap, BID, Routine, Start 11/15/18 21:00:00 EST heparin, 5,000 Units, SubCutaneous, Inj, Q8HInt, Routine, Start 11/15/18 19:00:00 EST losartan, 25 mg, Oral, Tab, BID, Routine, Start 11/15/18 21:00:00 EST ondansetron, 4 mg, IV Push, Inj, Q4H, PRN for Nausea, Routine, Start 11/15/18 18:13:00 EST pantoprazole, 40 mg, Oral, EC Tab, Daily, Routine, Start 11/16/18 9:00:00 EST PITavastatin, 1 mg, Oral, Tab, MoWeFr, Routine, Start 11/15/18 18:47:00 EST polyethylene glycol 3350, 17 Gram, Oral, Powder, Daily, PRN for Constipation, Routine, Start 11/15/18 18:13:00 EST Sodium Chloride 0.9% intravenous solution 1,000 mL, 1,000 mL, Bag Volume (mL) = 1,000, Rate = 50 mL/Hr, IntraVENous, start date 11/15/18 18:13:00 EST, Routine Ambulate BMP Basic Metabolic Panel CBC w/ Auto Diff CBC w/ Auto Diff CK Creatine Kinase CKMB CKMB CMP Comprehensive Metabolic Panel Consult to Case Management Consult to Physician Diabetes Education (Nursing) DVT VTE Prophylaxis Education ECG ECG Facility Protocol Incentive Spirometry (Nursing) Intake and Output Magnesium Level Magnesium Level May Shower Notify Provider Notify Provider Vital Signs Oxygen Therapy Platelet Count PT Evaluation and Treatment Pulse Oximetry Spot Check (Nursing) Resuscitation Status Saline Lock Insert Troponin I Ultra TSH Thyroid Stimulating Hormone Vital Signs Weight (Routine) Chest pain. Substernal chest pain started at 2:30 AM. Reported as negative ??1. Troponins. Cardiac enzymes every 6??3. EKG negative. Aspirin resumed. Xarelto. Atrial fibrillation with RVR Aspirin 81 mg twice a day. Xarelto. Diltiazem Ejection did not tolerate metoprolol because of that to dizziness. Gastric esophageal reflux disease. Omeprazole 20 mg daily. Hypertension. Losartan 25 twice a day. Dyslipidemia. liovalo full code, since nephew is next of kin. Patient did not seem to understand the question we are asking about CODE STATUS. He stated that he would not want to be a vegetable on life support indefinitely. Creatinine do something while he was on the table like shocking that he is okay with that but he just does not want to be on life support indefinitely. Patient did not seem to understand the question although is asked to him 6 or 7 different ways. Full code until patient can clarify his wishes. Patient's nephew is POA just a little bit confusing because patient is alert and oriented and seems to make his own decisions. 55 minutes spent on admission of this unfortunate 73-year-old gentleman transferred from the hospital in [facility] to [facility] in [place] for cardiology consult. Does have substernal chest pain. Chest x-rays negative. Troponin negative. 7 slight leukocytosis of 13. Chest x-rays negative. We'll check a urine analysis and blood Also low but up 1 nephew nokculture ??2. Problem List/Past Medical History At risk for sleep apnea Historical No historical problems Protection, atrial fibrillation blood pressure, dyslipidemia, GERD. Procedure/Surgical History Cholecystectomy, appendectomy, back surgery, left shoulder surgery. Medications Inpatient aspirin, 81 mg, Oral, Daily aspirin, 81 mg, 1 Tab, Oral, Daily Colace, 100 mg, 1 Cap, Oral, BID Dulcolax Laxative, 5 mg, 1 Tab, Oral, Daily, PRN DuoNeb 0.5 mg-2.5 mg/3 mL inhalation solution, 3 mL, Nebulized Inhalation , Q6H, PRN heparin, 5000 Units, 1 mL, SubCutaneous, Q8HInt Livalo, 1 mg, 1 Tab, Oral, MoWeFr losartan, 25 mg, 1 Tab, Oral, BID MiraLax, 17 Gram, 1 Packet, Oral, Daily, PRN pantoprazole, 40 mg, 1 Tab, Oral, Daily Sodium Chloride 0.9% intravenous solution 1,000 mL, 1000 mL, IntraVENous Tylenol, 650 mg, 2 Tab, Oral, Q4H, PRN Xarelto, 20 mg, 1 Tab, Oral, H56OEub Zofran, 4 mg, 2 mL, IV Push, Q4H, PRN Home aspirin, 81 mg, Oral, Daily DilTIAZem Hydrochloride CD 180 mg/24 hours oral capsule, extended release, 180 mg, 1 Cap, Oral, Daily Livalo 2 mg oral tablet, 1 mg, 0.5 Tab, MoWeFr losartan 25 mg oral tablet, 50 mg, 2 Tab, Oral, BID omeprazole, 20 mg, Oral, Daily Allergies Triple Antibotic Ointment codeine metoprolol promethazine Social History Alcohol Date/Time of Last Drink: drink approx 10 beers per month. Family History Mother age 74 from broken heart . Father history of stroke diabetes age 82. Lab Results Blood Gases (Current Encounter/Past 24 Hours) No White blood cell count of 13, hemoglobin of 17, platelets 256, [place] of 22, creatinine is 1.4, blood sugar of 161. Troponin is less than 0.04. Chest x-ray negative. Diagnostic Results Radiology Results (Last 48 hours) [id number] -- 11/15/2018 17:13 CR Chest 1 Vw Portable (11/15/2018 18:26) Result: Single view chestINDICATION: Chest painFINDINGS:The lungs are clear. The cardiac silhouette is mildly enlarged..IMPRESSION: No acute abnormality documented in this encounter Plan of Treatment Not on file documented as of this encounter Visit Diagnoses Not on filedocumented in this encounter
--- OUTSIDE RECORDS SUMMARY | 2024-09-29 14:36 | XMS_ITS | Encounter Summary ---
Author Organization [employer] Address [address] [place] [address] Care Team Providers Care Senior Sql Server Dba Name Role Phone Unavailable Primary Care Provider Unavailabl e Encounter Details Date Type Department Care Team (Late st Contact Info) Description 11/15/2018 Transcribed Document [facility] Family Medicine [address] [place] [address] ProviderHubert MD [facility] [place] [address] Social History Tobacco Use Types Packs/Day Years Used Date Smoking Tobacco: Never Assessed Sex and Gender Information Value Date Recorded Sex Assigned at Male 05/10/2022 4:38 PM CDT Legal Sex Male 6:25 PM CDT Gender Identity Male 05/10/2022 4:38 PM CDT Sexual Orientation Not on file documented as of this encounter Miscellaneous Notes * Cerner Conversion Note - Historical Provider, - 11/15/2018 5:25 PM SOFTWARE FIRMWARE ENGINEER Admission History, Adult Entered On: 11/15/2018 17:36 EST Performed On: 11/15/2018 17:25 EST by Raisa Redman Rn Advance Directive Patient has Advance Directive *Q : Yes, Advance Directive with the patient Advance Directive Type : Living will Copy Advance Directive Verified/on Chart : Yes Raisa Redman Rn - 11/15/2018 17:25 EST Anesthesia/Transfusion History Family History of Anesthesia Reaction : No prior transfusion(s) Blood Transfusion Acceptable to Patient : Yes Transfusion History : Prior anesthesia without reaction Family History of Anesthesia Reaction : None Raisa Redman Rn - 11/15/2018 17:25 EST Anticipated Discharge Needs Discharge To, Anticipated : Home Anticipated Discharge Needs at This Time : None Raisa Redman Rn - 11/15/2018 17:25 EST Education Topics, Admission Orientation DCP GENERIC CODE Advance Directives : Verbalizes understanding Allergy Band Applied : Verbalizes understanding Assessment/Vital Signs : Verbalizes understanding Bed Control : Verbalizes understanding Call Light : Verbalizes understanding Confidentiality : Verbalizes understanding Diet/Room Service : Verbalizes understanding Fall Prevention : Verbalizes understanding Hand Hygiene : Verbalizes understanding Healthcare Provider Visit : Verbalizes understanding ID Band Applied : Verbalizes understanding Isolation Precautions : Verbalizes understanding Orientation to Room/Bathroom : Verbalizes understanding Patient Bill of Rights : Verbalizes understanding Patient Rights/Responsibilities : Verbalizes understanding Patient Safety : Verbalizes understanding Personal Privacy Code : Verbalizes understanding Rapid Response Initiated by Patient/Family : Verbalizes understanding Rounding : Verbalizes understanding Siderails use/risks : Verbalizes understanding Skin Precautions : Verbalizes understanding Smoking Policy : Verbalizes understanding Telemetry Monitoring : Verbalizes understanding Television/Phone : Verbalizes understanding Visiting Policy : Verbalizes understanding Raisa Redman Rn - 11/15/2018 17:25 EST Functional Assessment Living Situation : Home Patient Lives With : Alone Persons Assisting Patient at Home : Alone Current Daily Living Assistance : None Mobility Assistance Prior to Admission : Independent Current Home Treatments : None Home Equipment : None Raisa Redman Rn - 11/15/2018 17:25 EST General Info Arrived From : Acute Care Facility Mode of Arrival on Unit : Stretcher Patient Arrival Date/Time : 11/15/2018 17:15 EST Legal Guardian : Other: nephew Want Family/Rep/Phys Notified of Admit : No Emergency Contact #1 : Tay Ledesma Emergency Contact #1 Emergency Contact #1 Relationship : MIKEA and nephew Emergency Contact #2 : delfino Emergency Contact #2 Phone Number : na Emergency Contact #2 Relationship : na Chief Complaint : chest pain Information Obtained From : Patient Primary Language : Libyan Communication Barrier : Raisa Rajput Rn - 11/15/2018 17:25 EST Fall Risk Scales ABCs Fall Injury Risk Identification : Age, Bones ABC Fall Injury Risk : Moderate to high injury risk Injury Moderate to High Risk Interventions : Specialty low bed, Transport methods appropriate to patient SO Hx Falls Immediate/Within 3 Months : No So Secondary Diagnosis : Yes SO Use of Ambulatory Aid : Bed rest/Nurse assist SO IV Therapy or IV Access : Yes So Gait/Transferring : Weak So Mental Status : Oriented to own ability So Fall Risk Score : 45 SO Fall Scale Risk Level : 25-45 Medium Risk [place] Fall Interventions : Adequate lighting, Assistive devices within reach, Bed in low position, Call device within reach, Fall prevention handout/education per facility policy, Hourly comfort/safety rounds, Non-slip footwear, Personal items within reach, Reinforced to call for assistance before getting out of bed, Room free of clutter/spills, Upper side-rails up, Wheels locked, Wires/Cords secured Fall Moderate to High Risk Interventions : Patient room close to nurses station, Transport methods appropriate to patient Raisa Redman Rn - 11/15/2018 17:25 EST Fall Risk Education Grid Alarms : [...] Verbalizes understanding Wheelchair Safety : Verbalizes understanding Raisa Redman Rn - 11/15/2018 17:25 EST Barriers to Learning : None evident Individuals Taught : Patient Readiness to Learn : Cooperative Fall Risk Scale Calc Temp : 0 Raisa Redman Rn - 11/15/2018 17:25 EST Health Histories Smoking Status : Former smoker, quit more than 30 days ago Smokeless Tobacco Status : Never Raisa Redman Rn - 11/15/2018 17:25 EST Social History (As Of: 11/15/2018 17:37:00 EST) Alcohol: Date/Time of Last Drink: drink approx 10 beers per month. (Last Updated: 11/15/2018 17:29:57 EST by Raisa Redman Rn) Height and Weight, Clinical Dosing Height Source : Chart Height Entry Format : [place] Height, Feet : 6 ft(Converted to: 183 cm, 72 Inch) Height, Inches : 1 Inch(Converted to: 0 ft 1 Inch, 2.54 cm) Clinical Height : 185.42 cm Weight Source : Bed scale Weight Entry Format : [place] Clinical Dosing Weight : 103.73 kg Weight, Pounds : 228.2 lb Body Surface Area (BSA) : 2.28 m2 Body Mass Index : 30.2 kg/m2 (HI) [place] Body Weight : 79 kg Raisa Redman Rn - 11/15/2018 17:25 EST Infectious Disease History Infectious Disease History : Chicken pox/Shingles, Measles, Mumps Active Surveillance Screen Assessment : Patient transferred from another hospital/ED Active Surveillance Screen Positive : Yes Isolation Needed : Contact Fever/Chills Last 48 Hours : No Travel To Regions with Travel Advisories : No Travel Outside [place] Within Last 30 Days : No Contact With Traveler to Advisory Region : No Tuberculosis Symptoms : None Raisa Redman Rn - 11/15/2018 17:25 EST Tetanus Immunization Status Previous Tetanus Immunizations : No qualifying data available. Tetanus Immunization : Unknown Raisa Redman Rn - 11/15/2018 17:25 EST Influenza Vaccine Asmt, Adult Previous Vaccines from Immunization Schedule : No qualifying data available. Influenza Immunization, Current Season : No Inactivated Flu Vaccine Contraindications : No contraindications to inactivated influenza vaccine Transplant Workup/Recent Transplant : No Order for Influenza Vaccine : Declined Vaccination Raisa Redman Rn - 11/15/2018 17:25 EST Pneumococcal Vaccine Previous Vaccines from Immunization Schedule : No qualifying data available. Pneumonia Immunization Received : No Pneumococcal Risk Assessment < Age 65 : N/A- Patient 65 years of age or older Pneumococcal Vaccine Contraindications : No contraindications to pneumococcal vaccine Transplant Workup/Recent Transplant : No Order for Pneumococcal Vaccine : Declined Vaccination Raisa Redman Rn - 11/15/2018 17:25 EST Order Details Transport Mode Order Detail : Wheelchair Isolation Precautions Order Detail : Contact precautions Order Detail : N/A IV Order Detail : 1 Oxygen Order Detail : 0 Nurse Collect Order Detail : 0 Lift/Transfer : Independent Central Line Order Detail : No Room Service : Appropriate Arterial Line : No Raisa Redman Rn - 11/15/2018 17:25 EST Nutrition History Feeding Ability : Independent Adaptive Feeding Equipment : None Adaptive Feeding Equipment : Regular Oral Medication Administration : By mouth Eating Poorly Due to Decreased Appetite : No Unplanned Weight Loss in Past 3-6 Months : No Malnutrition Screening Tool Total(mal) : 0 Malnutrition Screening Tool Risk Level : Patient not at risk Raisa Redman Rn - 11/15/2018 17:25 EST Psychosocial History Does Someone Depend on You for Care? : No Do You Have a History of the Following? : Patient denies history Currently in Unsafe Situation : No Tried to Harm Yourself in the Past? : No Thoughts of Harming/Killing Yourself : No Raisa Redman Rn - 11/15/2018 17:25 EST Sleep Apnea Risk Assmt Hx of Obstructive Sleep Apnea Diagnosis : No Snore Loudly : Yes Tired, Fatigued, or Sleepy During Day : Yes Observed Stopping Breathing During Sleep : No Have/Are Being Treated for Hypertension : Yes STOP Sleep Apnea Risk Level Score : 3 STOP Sleep Apnea Risk Level : High Raisa Redman Rn - 11/15/2018 17:25 EST Spiritual/Cultural Needs Significant Loss/Crisis in Past 3 Years : No Significant Distress/Coping/Need Support : No Any Spiritual/Cultural Needs or Requests : No Religion Preference : No protestant Raisa Redman Rn - 11/15/2018 17:25 EST Valuables and Belongings Valuables and Belongings : Clothing, Jewelry, Personal devices, No comfort items, No personal items, No assistive devices, No respiratory devices, No medications Clothing : Common streetwear Clothing Disposition : With patient Personal Device Disposition : With patient Jewelry : Watch Jewelry Disposition : With patient Personal Devices : Dentures, upper, Dentures, lower Raisa Redman Rn - 11/15/2018 17:25 EST documented in this encounter Plan of Treatment Not on file documented as of this encounter Visit Diagnoses Not on filedocumented in this encounter
--- OUTSIDE RECORDS SUMMARY | 2024-09-29 14:36 | XMS_ITS | Encounter Summary ---
Author Organization [facility] Address [address] [place] [address] Care Team Providers Care Glass Setter Name Role Phone Robinson Manley MD Primary Care Provider [phone] Encounter Details Date Type Department Care Team (Late st Contact Info) Description 01/31/[address] [facility] NEUROSURGERY [address] [facility] [address] [place] [address] Hank Guzman MD [address] [facility] [address] [place] [address] Social History Tobacco Use Types Packs/Day Years Used Date Smoking Tobacco: Former Cigarettes Q uit: 1974 Passive Smoke Exposure: Past Smokeless Tobacco: Never Alcohol Use Standard Drinks/Week Comments Yes 0 (1 standard drink = 0.6 oz pur e alcohol) BEER PER [facility] Utilities Answer Date Recorded In the past 12 months has [employer], gas, oil, or water [employer] threatened to shut off services in your [...] or training? Not on file Preferred Language New Zealander 01/03/2024 Sex and Gender Information Value Date Recorded Sex Assigned at Not on file Legal Sex Male 1:15 PM EDT Gender Identity Not on file Sexual Orientation Not on file documented as of this encounter Miscellaneous Notes * Telephone Encounter - Osmani Escamilla RN - 01/31/2024 10:03 AM EDT Provider: Thomas Surgery/Procedure: Lumbar Laminectomy L3-4 Surgery/Procedure Date: 01/01/24 Last visit: 01/21/24 Next visit: 02/18/24 Reason for call: Spoke with Mr. Terrell. He reports he has been doing very well, however he did begin to have dizziness and unsteadiness on his feet yesterday while walking. He reports since then feeling light headed and dizzy, with a slight drunk feeling. He is drowsy most days. Denies any confusion, denies any change to vision or speech, denies new numbness or unilateral limb weakness. Patient denies any recent seizure activity, stating his last seizure was in the hospital, he continues to take Keppra 500mg BID. documented in this encounter Plan of Treatment Upcoming Encounters Date Type Department Care Team (Late st Contact Info) Description 12/15/2024 8:30 AM EST Office Visit [facility]IOLOG[facility] [address] [place] [id number] Hannah Martinez APRN [address] [place] [id number] 02/04/2025 9:00 AM EDT Office Visit [facility] NEUROLOGY [address] [facility] [address] [place] [address] Britany Braxton MD [address] [facility] [address] [place] [address] documented as of this encounter Visit Diagnoses Not on filedocumented in this encounter Care Teams Glass Setter Relationship Specialty Start Date End Date Robinson Manley MD [address] [place] [address] PCP - General Family Medicine 07/09/23 documented as of this encounter
--- OUTSIDE RECORDS SUMMARY | 2024-09-29 14:36 | XMS_ITS | Encounter Summary ---
Author Organization [employer] Address [address] [place] [address] Care Team Providers Care Day Trader Name Role Phone Unavailable Primary Care Provider Unavailabl e Encounter Details Date Type Department Care Team (Late st Contact Info) Description 11/15/2018 Transcribed Document [facility] Family Medicine [address] [place] [address] ProviderHubert MD [address] [place] [address] Social History Tobacco Use Types Packs/Day Years Used Date Smoking Tobacco: Never Assessed Sex and Gender Information Value Date Recorded Sex Assigned at Male 05/10/2022 4:38 PM CDT Legal Sex Male 6:25 PM CDT Gender Identity Male 05/10/2022 4:38 PM CDT Sexual Orientation Not on file documented as of this encounter Miscellaneous Notes * Cerner Conversion Note - Historical ProviderMD - 11/15/2018 5:49 PM FLAP CURER Consult Phone Call Documentation Entered On: 11/15/2018 18:22 EST Performed On: 11/15/2018 17:49 EST by NHAN GIORDANO Phone Call for Consults Consult Phone Call/Page Attempt : First call NHAN GIORDANO - 11/15/2018 18:22 EST Electronically signed by Donnell Birch Conversion Global Director Air And Climate Change Cerner at 02/28/2023 5:48 PM CDT documented in this encounter Plan of Treatment Not on file documented as of this encounter Visit Diagnoses Not on filedocumented in this encounter
--- OUTSIDE RECORDS SUMMARY | 2024-09-29 14:36 | XMS_ITS | Encounter Summary ---
Author Organization [employer] Address [address] [place] [address] Care Team Providers Care Heavy Lift Rigger Name Role Phone Unavailable Primary Care Provider Unavailabl e Encounter Details Date Type Department Care Team (Late st Contact Info) Description 11/16/2018 Transcribed Document [facility] [place] [address] [place] [address] ProviderHubert MD [facility] [place] [address] Social History Tobacco Use Types Packs/Day Years Used Date Smoking Tobacco: Never Assessed Sex and Gender Information Value Date Recorded Sex Assigned at Male 05/10/2022 4:38 PM CDT Legal Sex Male 6:25 PM CDT Gender Identity Male 05/10/2022 4:38 PM CDT Sexual Orientation Not on file documented as of this encounter Miscellaneous Notes * Cerner Conversion Note - Historical ProviderMD - 11/16/2018 4:00 AM SERVICE ORDER DISPATCHER CHIEF Height and Weight, Routine Entered On: 11/16/2018 5:11 EST Performed On: 11/16/2018 4:00 EST by Tonya Carrasquillo [facility] Unit Coord Height and Weight, Routine Routine Weight Source : Bed scale Routine Weight Entry Format : Hand Routine Weight, Pounds : 230 lb Routine Weight, Ounces : 4 oz Routine Weight Calculation : 104.66 kg Height Source : Chart Height Entry Format : Hand Height, Feet : 6 ft Height, Inches : 1 Inch Clinical Height : 185.42 cm Body Surface Area (BSA), Routine : 2.29 m2 Body Mass Index (BMI), Routine : 30.44 kg/m2 [facility] - 11/16/2018 5:11 EST documented in this encounter Plan of Treatment Not on file documented as of this encounter Visit Diagnoses Not on filedocumented in this encounter
--- OUTSIDE RECORDS SUMMARY | 2024-09-29 14:36 | XMS_ITS | Encounter Summary ---
Author Organization [facility] [employer] Address [address] [place] [address] Care Team Providers Care All Purpose Clerk Name Role Phone Unavailable Primary Care Provider Unavailabl e Encounter Details Date Type Department Care Team (Late st Contact Info) Description 11/16/2018 Transcribed Document [facility] [place] [address] [place] [address] ProviderHubert MD [facility] [place] [address] Social History Tobacco Use Types Packs/Day Years [...] - Historical Provider, - 11/16/2018 2:[address] [facility] Charges Entered On: 11/16/2018 14:46 EST Performed On: 11/16/2018 14:45 EST by KIMBERLY ESPINOZA, PT [facility] Charges Physical Therapy Screen : 1 KIMBERLY ESPINOZA, PT - 11/16/2018 14:45 EST documented in this encounter Plan of Treatment Not on file documented as of this encounter Visit Diagnoses Not on filedocumented in this encounter
--- OUTSIDE RECORDS SUMMARY | 2024-09-29 14:36 | XMS_ITS | Encounter Summary ---
[facility] Organization [facility] Address [address] [place] [address] Care Team Providers Care Emergency Vehicle Driver Name Role Phone Robinson Manley MD Primary Care Provider +1- [phone] Reason for Visit * Reason Comments Hospital Follow Up Visit Encounter Details Date Type Department Care Team (Late st Contact Info) Description 02/05/2024 11:00 AM EDT Office Visit [facility] NEUROLOGY [address] [place] [address] Britany Braxton MD [address] [place] [address] Seizure (Primary Dx) Social History Tobacco Use Types Packs/Day Years Used Date Smoking Tobacco: Former Cigarettes Q uit: 1974 Passive Smoke Exposure: Past Smokeless Tobacco: Never Tobacco Cessation:Counseling Given: Not Answered Alcohol Use Standard Drinks/Week Comments Yes 0 (1 standard drink = 0.6 oz pur e alcohol) BEER PER [facility] Utilities Answer Date Recorded In the past 12 months has [email or web address], gas, oil, or water [employer] threatened to shut off services in your [...] or training? Not on file Preferred Language Tuvaluan 01/03/2024 Sex and Gender Information Value Date Recorded Sex Assigned at Not on file Legal Sex Male 1:15 PM EDT Gender Identity Not on file Sexual Orientation Not on file documented as of this encounter Last Filed Vital Signs Vital Sign Reading Time Taken Comments Blood Pressure 132/90 02/05/2024 10:38 AM EDT Pulse 90 02/05/2024 10:38 AM EDT Temperature - - Respiratory Rate - - Oxygen Saturation 98% 02/05/2024 10:38 AM EDT Inhaled Oxygen Concentration - - Weight 98 kg (216 lb) 02/05/2024 10:38 AM EDT Height 185.4 cm (6' 1 ) 02/05/2024 10:38 AM EDT Body Mass Index 28.5 02/05/2024 10:38 AM EDT documented in this encounter Progress Notes * Britany Braxton MD - 02/05/2024 11:00 AM EDT Subjective: CC: Santo Bentonbert Nidhi is seen today in consultation at the request of [facility] for seizures HPI: 78-year-old male with a past medical history of hypertension, hyperlipidemia, GERD, degenerative disc disease, A-fib presents with new onset seizures. Patient was admitted to the hospital for elective low back discectomy surgery (for severe L3-4 stenosis) around mid December. After surgery he was noted to have 2 generalized tonic-clonic seizures by the anesthesia team. Patient has no recollectionof the spells. He states the day prior to surgery he had hit the back of his head against the recliner. He had a CT scan of the head that showed a right parietal subarachnoid hemorrhage. CT angiogramof the head showed a chronically occluded right vert but no other aneurysms. He had a subsequent MRI brain that showed right more than left subarachnoid hemorrhage in addition to chronic ischemic changes. He also had an EEG that showed moderate diffuse slowing but no epileptiform activity. He was started on Keppra 500 mg twice daily that he has continued to take. Denies having any more seizures since discharge. He states that the Keppra is causing him to have a lot of side effects including dizziness, headaches and diffuse itching therefore he wants to stop taking it. 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 His Xarelto was held previously but he has resumed his dose now. Of note-I personally reviewed his CT head and MRI brain The following portions of the patient's history were reviewed today and updated as of 02/05/2024 : allergies, current medications, past family history, past medical history, past social history, pastsurgical history, and problem list These document will be scanned to patient's chart. Current Outpatient Medications: allopurinol (ZYLOPRIM) 100 MG tablet, Take 1 tablet by mouth Daily., Disp: , Rfl: levETIRAcetam (KEPPRA) 500 MG tablet, Take 1 tablet by mouth Every 12 (Twelve) Hours., Disp: 60 tablet, Rfl: 2 Livalo 4 MG tablet, Take 1 tablet by mouth Every Night., Disp: 90 tablet, Rfl: 1 naloxone (NARCAN) 4 MG/0.1ML nasal spray, Call 911. Don't prime. [place] in 1 nostril for overdose. Repeat in [...] LAMINECTOMY L3-4; Surgeon: Hank Guzman MD; Location: [facility]; Service: Neurosurgery; Laterality: N/A; SHOULDER ARTHROSCOPY Right TEETH EXTRACTION Family History Problem Relation Age of Onset Arthritis Mother Stroke Father Diabetes Sister Cancer Brother Social History Socioeconomic History Marital status: Single Tobacco Use Smoking status: Former Current packs/day: 0.00 Types: Cigarettes Quit date: 1973 Years since quittin.2 Passive exposure: Past Smokeless tobacco: Never Vaping Use Vaping status: Never Used Substance and Sexual Activity Alcohol use: Yes Comment: BEER PER [facility] Drug use: Never Sexual activity: Defer Review of Systems All other systems reviewed and are negative. Objective: BP 132/90 Pulse 90 Ht 185.4 cm (73 ) Wt 98 kg (216 lb) SpO2 98% BMI 28.50 kg/m?? Neurology Exam: General apperance: NAD. Mental status: Alert, awake and oriented to time place and person. Recent and Remote memory: Intact. Attention span and Concentration: Normal. Language and Speech: Intact- No dysarthria. Fluency, Naming , Repitition and Comprehension: Intact Cranial Nerves: CN II: Visual rutledge are full. Intact. Fundi - Normal, No papillederma, Pupils - FOUZIA CN III, IV and : Extraocular movements are intact. Normal saccades. CN V: Facial sensation is intact. CN VII: Muscles of facial expression reveal no asymmetry. Intact. CN VIII: Hearing is intact. Whispered voice intact. CN IX and X: Palate elevates symmetrically. Intact CN XI: Shoulder shrug is intact. CN XII: Tongue is midline without evidence of atrophy or fasciculation. Ophthalmoscopic exam of optic disc-normal Motor: Right UE muscle strength 5/5. Normal tone. Left UE muscle strength 5/5. Normal tone. Right LE muscle strength5/5. Normal tone. Left LE muscle strength 5/5. Normal tone. Sensory: Normal light touch, vibration and pinprick sensation bilaterally. DTRs: 2+ bilaterally in upper and lower extremities. Babinski: Negative bilaterally. Co-ordination: Normal qmhswy-[id number], heel to burgos B/L. Rhomberg: Negative. Gait: Normal. Cardiovascular: Regular rate and rhythm without murmur, gallop or rub. Assessment and Plan: 1. Seizure Patient had 2 provoked seizures due to his subarachnoid hemorrhage from trauma in the presence of Xarelto I discussed getting a repeat CT head to see if his bleeding had subsided completely and if normal slowly weaning him off of Keppra however he does not want to do so and wants to come off the Keppra right away as it is causing a lot of side effects Therefore I have told him to take a dose of Keppra 250 mg twice a day for 1 week then 250 mg daily once a day for 1 week then stopping it. If he has another seizure he should go to the hospital right away Return in about 1 year (around 02/04/2025). I spent over 40 minutes with the patient face to face out of which over 50% (30 minutes) was spent in management, instructions and education. Britany Braxton MD documented in this encounter Plan of Treatment Upcoming Encounters Date Type Department Care Team (Late st Contact Info) Description 12/15/2024 8:30 AM EST Office Visit [facility] C[facility]IOLOGY [address] [address] Hannah Martinez APRN [address] [id number] 02/04/2025 9:00 AM EDT Office Visit [facility] NEUROLOGY [address] [place] [address] Britany Braxton MD [address] [place] [address] documented as of this encounter Visit Diagnoses Diagnosis Seizure- Primary Other convulsions documented in this encounter Care Teams Emergency Vehicle Driver Relationship Specialty Start Date End Date Robinson Manley MD [address] [place] [address] PCP - General Family Medicine 07/09/23 documented as of this encounter
--- OUTSIDE RECORDS SUMMARY | 2024-09-29 14:36 | XMS_ITS | Encounter Summary ---
Author Organization [facility] Address [address] [place] [address] Care Team Providers Care Party Plan Sales Director Name Role Phone Robinson Manley MD Primary Care Provider +1- [phone] Reason for Visit * Reason Comments Post-op Encounter Details Date Type Department Care Team (Late st Contact Info) Description 04/02/2024 9:30 AM EDT Office Visit [facility] NEUROSURGERY [address] [place] [address] Kenna Manley, PANéstorC [address] [facility] [address] [place] [id number] S/P lumbar laminectomy (Primary Dx) Social History Tobacco Use Types Packs/Day Years Used Date Smoking Tobacco: Former Cigarettes Q uit: 1974 Passive Smoke Exposure: Past Smokeless Tobacco: Never Tobacco Cessation:Counseling Given: Not Answered Alcohol Use Standard Drinks/Week Comments Yes 0 (1 standard drink = 0.6 oz pur e alcohol) BEER PER [facility] Utilities Answer Date Recorded In the past 12 months has [employer], gas, oil, or water [employer] threatened to shut off services in your [...] or training? Not on file Preferred Language Angolan 01/03/2024 Sex and Gender Information Value Date Recorded Sex Assigned at Not on file Legal Sex Male 1:15 PM EDT Gender Identity Not on file Sexual Orientation Not on file documented as of this encounter Last Filed Vital Signs Vital Sign Reading Time Taken Comments Blood Pressure - - Pulse - - Temperature 36.2 ??C (97.1 ??F) 04/02/2024 9:00 AM ED T Respiratory Rate - - Oxygen Saturation - - Inhaled Oxygen Concentration - - Weight 98.2 kg (216 lb 8 oz) 04/02/2024 9:00 AM EDT Height 185.4 cm (6' 0.99 ) 04/02/2024 9:00 AM ED T Body Mass Index 28.57 04/02/2024 9:00 AM EDT documented in this encounter Progress Notes * Kenna Manley PA-C - 04/02/2024 9:30 AM EDT Santo Terrell 1945 04/02/2024 [id number] CC: s/p L3-4 laminectomy HPI: Santo Terrell is a 78 y.o. male who is 3 months s/p L3-[address] Guzman. Preoperatively, patient was experiencing back pain and neurogenic claudication. Immediately postoperatively, patient experienced a generalized clonic tonic seizure and was found to have small subarachnoid hemorrhage likely from hitting his head after falling out of a recliner a couple days prior to surgery. He started on Keppra 500 mg twice daily at that time which he was weaned off of by neurology about 2 months ago. Denies any further seizure-like events. Postoperatively, patient reports significant improvement his lower extremity symptoms. He denies any pain radiating down his legs or weakness. He is overall very pleased with his progress. Past Medical History: Diagnosis Date Allergies PHOLCODINE TRIPLE ANTIBIOTIC Chronic atrial fibrillation Chronic atrial fibrillation, unspecified CKD (chronic kidney disease), stage III DDD (degenerative disc disease), lumbar Full dentures GERD without esophagitis Hypercholesterolemia Hypertension Mitral regurgitation 07/04/2022 MODERATE Nonrheumatic mitral (valve) insufficiency Paroxysmal atrial fibrillation SOB (shortness of breath) Wears glasses Allergies Allergen Reactions Triple Antibiotic W/Hydrocortisone [Xmzlwkv-Kuzprsww-Wxzsqddjd-Hc] Rash Codeine Other (See Comments) Knots on my head Current Outpatient Medications: allopurinol (ZYLOPRIM) 100 MG tablet, Take 1 tablet by mouth Daily., Disp: , Rfl: Livalo 4 MG tablet, Take 1 tablet by mouth Every Night., Disp: 90 tablet, Rfl: 1 naloxone (NARCAN) 4 MG/0.1ML nasal spray, Call 911. Don't prime. [place] in 1 nostril for overdose. Repeat in [...] tablet by mouth Daily., Disp: , Rfl: Tiadylt ER 120 MG 24 hr capsule, Take 1 capsule by mouth Daily., Disp: , Rfl: Xarelto [...] nervous/anxious and is not hyperactive. PE: Temp 97.1 ??F (36.2 ??C) (Infrared) Ht 185.4 cm (72.99 ) Wt 98.2 kg (216 lb 8 oz) BMI 28.57 kg/m?? Neurologic Exam Awake, alert and oriented x 3 Speech f/c Opens eyes spontaneously Pupils 3 mm rx bilaterally Extraocular muscles intact bilaterally 5/5 in bilateral lower ext Social History Tobacco Use Smoking status: Former Packs/day: 0.00 Types: Cigarettes Quit date: 1973 Years since quittin.4 Passive exposure: Past Smokeless tobacco: Never Tobacco Use: Medium Risk (04/02/2024) Patient History Smoking Tobacco Use: Former Smokeless Tobacco Use: Never Passive Exposure: Past STEADI Fall Risk Assessment was completed, and patient is at HIGH risk for falls. Assessment completed on:04/02/2024 Diagnoses and all orders for this visit: 1. S/P lumbar laminectomy (Primary) Assessment/Plan This is a 78 y.o. male who is 3 months s/p L3-[address] Guzman. Postoperatively, patient notes significant Promin his lower extremity symptoms. He denies any pain or weakness in his legs. Is overall very pleased with his progress. He has full strength in bilateral lower extremities. Seeing as patient is doing so well, I do not see a role for any formal follow-up at this time. He can follow-up on an as-needed basis or call with any questions or concerns. Any copied data from previous notes included in the (1) HPI, (2) PE, (3) MDM and/or Assessment and Plan has been reviewed and is accurate as of 04/02/24 Kenna Manley PA-C 04/02/24 documented in this encounter Plan of Treatment Upcoming Encounters Date Type Department Care Team (Late st Contact Info) Description 12/15/2024 8:30 AM EST Office Visit [facility] CARDIOLOGY [address] [phone] Hannah Martinez APRN [address] [address] 02/04/2025 9:00 AM EDT Office Visit [facility] NEUROLOGY [address] [facility] [address] [place] [address] Britany Braxton MD [address] [facility] [address] [place] [address] documented as of this encounter Visit Diagnoses Diagnosis S/P lumbar laminectomy- Primary documented in this encounter Care Teams Party Plan Sales Director Relationship Specialty Start Date End Date Robinson Manley MD [address] [place] [address] PCP - General Family Medicine 07/09/23 documented as of this encounter
--- OUTSIDE RECORDS SUMMARY | 2024-09-29 14:36 | XMS_ITS | Encounter Summary ---
Author [facility] Address [address] [place] [address] Care Team Providers Care Central Control Room Operator Name Role Phone Robinson Manley MD Primary Care Provider +1- [phone] Reason for Visit * Reason Comments Med Refill Encounter Details Date Type Department Care Team (Late st Contact Info) Description 02/01/[address] [facility] C[facility]IOLOGY [address] [place] [address] Carleen Dave APRN [address] [place], [place] [id number] Med Refill Social History Tobacco Use Types Packs/Day Years Used Date Smoking Tobacco: Former Cigarettes Q uit: 1974 Passive Smoke Exposure: Past Smokeless Tobacco: Never Alcohol Use Standard Drinks/Week Comments Yes 0 (1 standard drink = 0.6 oz pur e alcohol) BEER PER [facility] Utilities Answer Date Recorded In the past 12 months has [employer], gas, oil, or water [employer] threatened to shut off services in your [...] or training? Not on file Preferred Language Israeli 01/03/2024 Sex and Gender Information Value Date Recorded Sex Assigned at Not on file Legal Sex Male 1:15 PM EDT Gender Identity Not on file Sexual Orientation Not on file documented as of this encounter Miscellaneous Notes * Telephone Encounter - Konstantin Ferreira CMA - 02/03/2024 8:17 AM EDT Medication was discontinued during last visit with neurology. Please advise. documented in this encounter Plan of Treatment Upcoming Encounters Date Type Department Care Team (Late st Contact Info) Description 12/15/2024 8:30 AM EST Office Visit [facility]IOLOG[facility] [address] [id number] Hannah Martinez APRN [address] [address] 02/04/2025 9:00 AM EDT Office Visit [facility] [address] [facility] [address] [place] [address] Britany Braxton MD [address] [facility] [address] [place] [address] documented as of this encounter Visit Diagnoses Diagnosis Atrial fibrillation, unspecified type documented in this encounter Care Teams Central Control Room Operator Relationship Specialty Start Date End Date Robinson Manley MD [address] [place] [address] PCP - General Family Medicine 07/09/23 documented as of this encounter
--- OUTSIDE RECORDS SUMMARY | 2024-09-29 14:36 | XMS_ITS | Encounter Summary ---
Author Organization [employer] Address [address] [place] [address] Care Team Providers Care Alarm Mechanism Adjuster Name Role Phone Unavailable Primary Care Provider Unavailabl e Encounter Details Date Type Department Care Team (Late st Contact Info) Description 11/16/2018 Transcribed Document [facility] [place] [address] [place], [place] [id number] ProviderHubert MD [facility] [place] [address] Social History Tobacco Use Types Packs/Day Years Used Date Smoking Tobacco: Never Assessed Sex and Gender Information Value Date Recorded Sex Assigned at Male 05/10/2022 4:38 PM CDT Legal Sex Male 6:25 PM CDT Gender Identity Male 05/10/2022 4:38 PM CDT Sexual Orientation Not on file documented as of this encounter Miscellaneous Notes * [employer] Conversion Note - Historical Provider, - 11/16/2018 8:18 PM LEGAL SECRETARY RECEPTIONIST RX Interventions Entered On: 11/16/2018 20:19 EST Performed On: 11/16/2018 20:18 EST by Lyndsay Sears, Pharm.D.-Resident Clinical Interventions Chart Review : Yes Lyndsay Sears, Pharm.D.-Resident - 11/16/2018 20:18 EST Chart Review Chart Review, Order : heparin dose drip consult Chart Review, Notes : Spoke to TRUDI Zabala confirmed pt's weight of 103.73kg initial bolus 8000 units max and initial infusion rate 18 mL/hr max Chart Review, Value : 0 Dollar Chart Review, Time : 0 Minute(s) Lyndsay Sears, Pharm.D.-Resident - 11/16/2018 20:18 EST Electronically signed by Ey[facility] Conversion Surgeon/President [employer] at 02/28/2023 5:39 PM CDT documented in this encounter Plan of Treatment Not on file documented as of this encounter Visit Diagnoses Not on filedocumented in this encounter
--- OUTSIDE RECORDS SUMMARY | 2024-09-29 14:36 | XMS_ITS | Encounter Summary ---
Author Organization [employer] Address [address] [place] [address] Care Team Providers Care Tilting Saw Operator Name Role Phone Unavailable Primary Care Provider Unavailabl e Encounter Details Date Type Department Care Team (Late st Contact Info) Description 11/16/2018 Transcribed Document [facility] Family Medicine [facility] [place] [place] [address] ProviderHubert MD [facility] [place], [place] [address] Social History Tobacco Use Types Packs/Day Years Used Date Smoking Tobacco: Never Assessed Sex and Gender Information Value Date Recorded Sex Assigned at Male 05/10/2022 4:38 PM CDT Legal Sex Male 6:25 PM CDT Gender Identity Male 05/10/2022 4:38 PM CDT Sexual Orientation Not on file documented as of this encounter Miscellaneous Notes * Cerner Conversion Note - Historical ProviderMD - 11/16/2018 12:02 PM PATIENT ACCOUNTING REPRESENTATIVE Patient: MARILYN TERRELL Age: 73 Years Sex: Male : 1945 Admission Information 73-year-old white gentleman history of atrial fibrillation with RVR presents to outside facility [facility] with chest pain started 2:30 AM the middle of his chest 10 only improved with IV morphine at the outside facility. No fevers or chills. No nausea vomiting. No diarrhea constipation. No dysuria hematuria. The ER at the outside facility discussed patient Dr. Drew Pickens and request the patient be transferred to [facility] to be seen by cardiology and admitted by the internal medicine group. [facility] recommended several months ago but patient refused the procedure Hospital Course Pt admitted for chest pain rule out and cardiology evaluation after pt complained of chest pain. Troponin negative and echocardiogram completed. Pt started on amiodarone with good rate control. Pt also started on OAC with Xarelto. Pt was transitioned to PO amiodarone and diltiazem resumed at the time of discharge. Pt remained hemodynamically stable and ACS ruled out with negative troponins, symptoms likely from GERD. Pt discharged home with new medications and recommendations from cardiology. Pt will need to follow up with cardiology after discharge to manage amiodarone dosing. Significant Findings Radiology Results (Last 48 hours) [id number] -- 11/15/2018 17:13 CR Chest 1 Vw Portable (11/15/2018 18:26) Result: Single view chestINDICATION: Chest painFINDINGS:The lungs are clear. The cardiac silhouette is mildly enlarged..IMPRESSION: No acute abnormality ECHOCARDIOGRAM Impression: Normal sized left ventricle. Mild concentric left ventricular hypertrophy. Visually estimated ejection fraction 50% +/- 5%. Abnormal left ventricular systolic strain pattern. Indeterminate diastolic function. Normal sized right ventricle. MIldly reduced right ventricular function No significant valvular heart disease. Procedures and Treatment Provided No qualifying data available. Physical Exam Vitals & Measurements T: 36.7 ??C HR: 95 HR: 86 (Monitored) RR: 18 BP: 120/78 MAP: 91 SpO2: 98% HT: 185.42 cm WT: 104.66 kg WT: 103.73 kg BMI: 30.44 BMI: 30.2 General: [Alert and oriented, well nourished, no acute distress]. Neurologic: [Awake, alert, and oriented X3, CN II-XII intact]. Eye: [PERRL, EOMI, normal conjuctiva]. HENT: [Normocephalic, clear tympanic membranes, normal hearing, moist oral mucosa, no scleral icterus, no sinus tenderness]. Neck: [Supple, non-tender, no carotid bruits, no JVD, no lymphadenopathy]. Lungs: [Clear to auscultation and percussion, non-labored respiration]. Heart: [Normal rate, irregular rhythm, no murmur, gallop or edema]. Abdomen: [Soft, non-tender, non-distended, normal bowel sounds, no masses]. Musculoskeletal: [Normal range of motion and strength, no tenderness or swelling]. Skin: [Skin is warm, dry and pink, no rashes or lesions]. Psychiatric: [Cooperative, appropriate mood and affect]. Discharge Plan Discharge home with family and follow up with PCM and outpatient tobacco classer. Continue oral loading amiodarone and follow up with cardiology or PCM for dose adjustment. 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 Patient Discharge Condition Improved and stable Discharge Disposition Discharge home Discharge Medications Home Medications (5) Active aspirin 81 mg, Oral, Daily DilTIAZem Hydrochloride CD 180 mg/24 hours oral capsule, extended release 180 mg = 1 Cap, Oral, Daily Livalo 2 mg oral tablet 1 mg = 0.5 Tab, MoWeFr losartan 25 mg oral tablet 50 mg = 2 Tab, Oral, BID omeprazole 20 mg, Oral, Daily Xarelto 20mg daily Amiodarone 400mg BID Lab Results Electrolytes(BMP) Results (Current Encounter/Past 24 Hours) Sodium Level 138 mmol/L 11/16/2018 02:23 Potassium Level 4.2 mmol/L 11/16/2018 02:23 Chloride Level 108 mmol/L 11/16/2018 02:23 Carbon Dioxide Level 23 mmol/L 11/16/2018 02:23 Anion Gap 11 11/16/2018 02:23 Blood Urea Nitrogen 22 mg/dL 11/16/2018 02:23 Glucose Level 127 mg/dL W[place] 11/16/2018 02:23 Calcium Level 8.3 mg/dL LOW 11/16/2018 02:23 Creatinine Level 1.10 mg/dL 11/16/2018 02:23 Cardiac Markers (Current Encounter/Past 24 Hours) CK MB <1.00 ng/mL 11/16/2018 02:37 CK 61 Units/Liter 11/16/2018 02:37 ProBNP 493 pg/mL WY 11/15/2018 19:52 CMP Results (Current Encounter/Past 24 Hours) eGFR 80 mL/min/1.73m2 11/16/2018 02:23 Globulin 3.8 Gram/dL 11/16/2018 02:23 A/G Ratio 0.8 LOW 11/16/2018 02:23 Creatinine Level 1.10 mg/dL 11/16/2018 02:23 eGFR NonAfrican 66 mL/min/1.73m2 11/16/2018 02:23 Bun/Creatinine 20.0 11/16/2018 02:23 Protein Total 6.7 Gram/dL 11/16/2018 02:23 Sodium Level 138 mmol/L 11/16/2018 02:23 Potassium Level 4.2 mmol/L 11/16/2018 02:23 Chloride Level 108 mmol/L 11/16/2018 02:23 Carbon Dioxide Level 23 mmol/L 11/16/2018 02:23 Anion Gap 11 11/16/2018 02:23 Alk Phos 97 Units/Liter 11/16/2018 02:23 ALT 92 Units/Liter WY 11/16/2018 02:23 AST 57 Units/Liter WY 11/16/2018 02:23 Blood Urea Nitrogen 22 mg/dL 11/16/2018 02:23 Glucose Level 127 mg/dL WY 11/16/2018 02:23 Albumin Level 2.9 Gram/dL LOW 11/16/2018 02:23 Bilirubin Total 1.2 mg/dL 11/16/2018 02:23 Calcium Level 8.3 mg/dL LOW 11/16/2018 02:23 Magnesium Level 2.0 mg/dL 11/16/2018 02:23 Creatinine Clearance (Current Encounter/Past 24 Hours) Creatinine Level 1.10 mg/dL 11/16/2018 02:23 Bun/Creatinine 20.0 11/16/2018 02:23 Estimated Creatinine Clearance 68.60 mL/Min 11/16/2018 02:23 Blood Products No qualifying data available. documented in this encounter Plan of Treatment Not on file documented as of this encounter Visit Diagnoses Not on filedocumented in this encounter
--- OUTSIDE RECORDS SUMMARY | 2024-09-29 14:36 | XMS_ITS | Encounter Summary ---
Author Organization [facility] ystem Address [address] [place] [address] Care Team Providers Care Sales Administrator Name Role Phone Robinson Manley MD Primary Care Provider +1- [phone] Reason for Visit * Reason Comments Back Pain Encounter Details Date Type Department Care Team (Late st Contact Info) Description 01/21/2024 3:00 PM EDT Office Visit [facility] NEUROSURGERY [address] [place] [address] Kenna Manley, PANéstorC [address] [facility] [address] [place] [address] S/P lumbar laminectomy (Primary Dx) Social History Tobacco Use Types Packs/Day Years Used Date Smoking Tobacco: Former Cigarettes Q uit: 1974 Passive Smoke Exposure: Past Smokeless Tobacco: Never Tobacco Cessation:Counseling Given: No Alcohol Use Standard Drinks/Week Comments Yes 0 (1 standard drink = 0.6 oz pur e alcohol) BEER PER [facility] Utilities Answer Date Recorded In the past 12 months has [employer] gas, oil, or water [employer] threatened to shut off services in your [...] - Pulse - - Temperature 36.1 ??C (97 ??F) 01/21/2024 2:55 PM EDT Respiratory Rate - - Oxygen Saturation - - Inhaled Oxygen Concentration - - Weight 94.2 kg (207 lb 11.2 oz) 01/21/2024 2:55 PM EDT Height 185.4 cm (6' 0.99 ) 01/21/2024 2:55 PM ED T Body Mass Index 27.41 01/21/2024 2:55 PM EDT documented in this encounter Progress Notes * Kenna Manley PA-C - 01/21/2024 3:00 PM EDT Santo Terrell 1945 01/21/2024 [id number] CC: s/p L3-4 laminectomy HPI: Santo Terrell is a 78 y.o. male who is about 3 weeks s/p L3-[address] Guzman. Preoperatively, patient was experiencing back pain and neurogenic claudication. Postoperatively, patient experienced a generalized tonic clonic seizure and was found to have small subarachnoid hemorrhage likely from hitting his head after falling out of a recliner a couple days prior. He wasstarted on Keppra 500 mg twice daily which he continues daily. Denies any seizure-like activity since the event postoperatively. Patient states he feels great in regards to his lower extremity symptoms. He has been walking more without issues. Denies any new back or leg pain. Incision healing well.He has a an appointment with neurology in early March. Past Medical History: Diagnosis Date Allergies PHOLCODINE TRIPLE ANTIBIOTIC Chronic atrial fibrillation Chronic atrial fibrillation, unspecified CKD (chronic kidney disease), stage III DDD (degenerative disc disease), lumbar Full dentures GERD without esophagitis Hypercholesterolemia Hypertension Mitral regurgitation 07/04/2022 MODERATE Nonrheumatic mitral (valve) insufficiency Paroxysmal atrial fibrillation SOB (shortness of breath) Wears glasses Allergies Allergen Reactions Triple Antibiotic W/Hydrocortisone [Zzwnknb-Rvegsqjd-Udpxinylh-Hc] Rash Codeine Other (See Comments) Knots on [...] MG/0.1ML nasal spray, Call 911. Don't prime. [place] in 1 nostril for overdose. Repeat in [...] tablet by mouth Daily., Disp: , Rfl: Review of Systems Constitutional: Negative for activity [...] nervous/anxious and is not hyperactive. PE: Temp 97 ??F (36.1 ??C) (Infrared) Ht 185.4 cm (72.99 ) Wt 94.2 kg (207 lb 11.2 oz) BMI 27.41 kg/m?? Neurologic Exam Incision healing well 5/5 in all 4 extremities Social History Tobacco Use Smoking status: Former Packs/day: 0.00 Types: Cigarettes Quit date: 1974 Years since quittin.2 Passive exposure: Past Smokeless tobacco: Never Tobacco Use: Medium Risk (01/21/2024) Patient History Smoking Tobacco Use: Former Smokeless Tobacco Use: Never Passive Exposure: Past STEADI Fall Risk Assessment was completed, and patient is at LOW risk for falls.Assessment completed on:01/21/2024 Diagnoses and all orders for this visit: 1. S/P lumbar laminectomy (Primary) Other orders - levETIRAcetam (KEPPRA) 500 MG tablet; Take 1 tablet by mouth Every 12 (Twelve) Hours. Dispense: 60 tablet; Refill: 2 Assessment/Plan This is a 78 y.o. male who is 3 weeks s/p L3-[address] Guzman. He had seizure postoperatively and was found to have subarachnoid hemorrhage likely from hitting his head after falling out of a recliner a couple days prior to surgery. He continues to take Keppra appropriately and has not not had any seizure-like activity since. He reports significant improvement in his lower extremity symptoms and denies any issues with his incision. He can gradually increase his daily activity over the course of the next few weeks. He will follow-up in 4 weeks to see how he is doing. He has an appointment scheduled with neurology in early March. He will continue taking his Keppra. Activities and restrictions were discussed. Wound care was discussed with the patient. Patient encouraged to contact us if he has any changes in his condition or any concerns. Any copied data from previous notes included in the (1) HPI, (2) PE, (3) MDM and/or Assessment and Plan has been reviewed and is accurate as of 01/21/24 Kenna Manley PA-C 01/21/24 documented in this encounter Plan of Treatment Upcoming Encounters Date Type Department Care Team (Late st Contact Info) Description 12/15/2024 8:30 AM EST Office Visit [facility] CARDIOLOGY [address] [place] [phone] Hannah Martinez APRN [address] [place] [id number] 02/04/2025 9:00 AM EDT Office Visit [facility] NEUROLOGY [address] [place] [address] [address] [place] [address] Britany Braxton MD [address] [facility] [address] [place] [address] documented as of this encounter Visit Diagnoses Diagnosis S/P lumbar laminectomy- Primary documented in this encounter Care Teams Sales Administrator Relationship Specialty Start Date End Date Robinson Manley MD [address] [place] [address] PCP - General Family Medicine 07/09/23 documented as of this encounter
--- OUTSIDE RECORDS SUMMARY | 2024-09-29 14:36 | XMS_ITS | Encounter Summary ---
Author Organization [employer] Address [address] [place] [address] Care Team Providers Care Client Advisor Name Role Phone Unavailable Primary Care Provider Unavailabl e Encounter Details Date Type Department Care Team (Late st Contact Info) Description 11/16/2018 Transcribed Document [facility] [address] [place] [address] ProviderHubert MD [address] [place] [address] Social History Tobacco Use Types Packs/Day Years Used Date Smoking Tobacco: Never Assessed Sex and Gender Information Value Date Recorded Sex Assigned at Male 05/10/2022 4:38 PM CDT Legal Sex Male 6:25 PM CDT Gender Identity Male 05/10/2022 4:38 PM CDT Sexual Orientation Not on file documented as of this encounter Miscellaneous Notes * Cerner Conversion Note - Historical Provider, - 11/16/2018 2:00 AM SATELLITE DISH INSTALLER Web Content Director Details Entered On: 11/16/2018 4:33 EST Performed On: 11/16/2018 2:00 EST by Dennise Garcia Rn Order Details Transport Mode Order Detail : Wheelchair Isolation Precautions Order Detail : Contact precautions Order Detail : N/A IV Order Detail : 1 Oxygen Order Detail : 0 Nurse Collect Order Detail : 0 Lift/Transfer : Independent Central Line Order Detail : No Room Service : Appropriate Arterial Line : No Dennise Garcia Rn - 11/16/2018 4:33 EST documented in this encounter Plan of Treatment Not on file documented as of this encounter Visit Diagnoses Not on filedocumented in this encounter
--- OUTSIDE RECORDS SUMMARY | 2024-09-29 14:37 | XMS_ITS | Encounter Summary ---
Author Organization [facility] ystem Address [address] [place] [address] Care Team Providers Care It Sales Representative Name Role Phone Robinson Manley MD Primary Care Provider +1- [phone] Reason for Visit * Reason Onset Date Comments Med Refill 12/17/2023 Encounter Details Date Type Department Care Team (Late st Contact Info) Description 12/17/2023 Refill [facility] NEUROSURGERY [address] [facility] [address] [place] [address] Kenna Manley, PA-C [address] [facility] [address] [place] [address] Social History Tobacco Use Types Packs/Day Years Used Date Smoking Tobacco: Former Cigarettes Q uit: 1974 Passive Smoke Exposure: Past Smokeless Tobacco: Never Alcohol Use Standard Drinks/Week Comments Yes 0 (1 standard drink = 0.6 oz pur e alcohol) BEER PER [facility] Abuse Screen Answer Date Recorded Unsafe at Home or Work/School Not on file Feels Threatened by Someone? Not on file 07/2023 Does Anyone Keep You from Co ntacting Others or Doint Things Outside the Home? Not on file 08/19/2023 Physical Sign of Abuse Present Not on file 1 Housing Stability Answer Date Recorded Current Living Arrangements Not on file 07/2023 Potentially Unsafe Housing Conditions Not on lauren e 08/19/2023 Family and Community Support Answer Hamlet e Recorded Help with Day-to-Day Activities Not on file 08/19/2023 Lonely or Isolated Not on file 08/19/2023 Employment Answer Date Recorded Do you want help finding or keeping work or a rocky b? Not on file 08/19/2023 Disabilities Answer Date Recorded Concentrating, Remembering, or Making Decisions Difficulty Not on file 08/19/2023 Doing Errands Independently Difficulty Not on fi le 08/19/2023 Education Answer Date Recorded Help with school or training? Not on file Preferred Language Not on file 08/19/2023 Sex and Gender Information Value Date Recorded Sex Assigned at Not on file Legal Sex Male 1:15 PM EDT Gender Identity Not on file Sexual Orientation Not on file documented as of this encounter Plan of Treatment Upcoming Encounters Date Type Department Care Team (Late st Contact Info) Description 12/15/2024 8:30 AM EST Office Visit [facility] CARDIOLOGY [address] [place] [id number] Hannah Martinez, BATTERY PLATE REMOVER [address] [address] 02/04/2025 9:00 AM EDT Office Visit [facility] NEUROLOGY [address] [facility] [address] [place] [address] Britany Braxton MD [address] [facility] [address] [place] [address] documented as of this encounter Visit Diagnoses Not on filedocumented in this encounter Care Teams It Sales Representative Relationship Specialty Start Date End Date Robinson Manley MD [address] [place] [address] [place] [address] PCP - General Family Medicine 07/09/23 documented as of this encounter
--- OUTSIDE RECORDS SUMMARY | 2024-09-29 14:37 | XMS_ITS | Encounter Summary ---
Author Organization [facility] Address [address] [place] [address] Care Team Providers Care Physician Liaison Name Role Phone Robinson Manley MD Primary Care Provider +1- [phone] Reason for Referral * Surgical (Routine) - Authorized Specialty Diagnoses / Procedures Referred By Contac t Referred To Contact Diagnoses Spinal stenosis of lumbar region, unspecified whether neurogenic claudication present Procedures Case Request Kenna Manley PA-C [address] [facility] [address] [place], [place] [address] Phone: tel: fax: Referral ID Status Reason Start Date Expiration Date V isits Requested Visits Authorized [id number] Authorized 12/17/2023 12/16/2024 1 1 Encounter Details Date Type Department Care Team (Late st Contact Info) Description 12/17/2023 Prep for Surgery [facility] ORDERS ONLY [address] [place] [address] Kenna Manley PA-C [address] [facility] [address] [place] [address] Spinal stenosis of lumbar region, unspecified whether neurogenic claudication present (Primary Dx); Body mass index (BMI) 28.0-28.9, adult Social History Tobacco Use Types Packs/Day Years [...] Description 12/15/2024 8:30 AM EST Office Visit [facility] CARDIOLOGY [address] [phone] Hannah Martinez, DIESEL ENGINE TESTER [address] [place] [address] 02/04/2025 9:00 AM EDT Office Visit [facility] NEUROLOGY [address] [facility] [address] [place] [address] Britany Braxton MD [address] [facility] [address] [place] [address] documented as of this encounter Results * MRSA Screen Culture (Outpatient) - Swab, Nares (12/23/2023 10:01 AM EST) Pathologist [facility] MRSA Screen Cx No Methicillin Resistant Staphylococcus aureus isolated MAYA 12/24/2023 11:36 AM EST [facility] Swab Structure of anterior naris / Unknown Collection / Unknown 12/23/2023 10:01 AM EST 12/23/2023 11:04 AM EST [facility] - 12/24/2023 11:36 AM EST The negative predictive value of this diagnostic test is high and should only be used to consider de-escalating anti-MRSA therapy. A positive result may indicate colonization with MRSA and must be correlated clinically. Kenna Manley PA-C MICROBIOLOGY - GENERAL ORDJakob MURRY Final Result [facility]
[address] [place] [address], * (ABNORMAL) Basic Metabolic Panel (12/23/2023 10:01 AM EST) Pathologist [facility] Glucose 101(H) 65 - 99 mg/dL 12/23/2023 11:19 AM EST [facility] BUN 22 8 - 23 mg/dL 12/23/2023 11:19 AM EST [facility] Creatinine 1.45(H) 0.76 - 1.27 mg/dL 12/23/2023 11:19 AM EST [facility] Sodium 136 136 - 145 mmol/L 12/23/2023 11:19 AM EST [facility] Potassium 4.5 3.5 - 5.2 mmol/L 12/23/2023 11:19 AM EST [facility] Comment:Slight hemolysis det ected by analyzer. Result may be falsely elevated. Chloride 103 98 - 107 mmol/L 12/23/2023 11:19 AM EST [facility] CO2 21.0(L) 22.0 - 29.0 mmol/L 12/23/2023 11:19 AM EST [facility] Calcium 9.5 8.6 - 10.5 mg/dL 12/23/2023 11:19 AM [facility] BUN/Creatinine Ratio 15.2 7.0 - 25.0 12/23/2023 11:19 AM [facility] Anion Gap 12.0 5.0 - 15.0 mmol/L 12/23/2023 11:19 AM [facility] eGFR 49.6(L) >60.0 mL/min/1.7 3 12/23/2023 11:19 AM [facility] Blood Venipuncture / Unknown 12/23/2023 10:01 AM EST 12/23/2023 10:52 AM EST [facility]OR[facility]ORY - 12/23/2023 11:19 AM EST GFR Normal >60 Chronic Kidney Disease <60 Kidney Failure <15 The GFR formula is only valid for adults with stable renal function between ages 18 and 70. Kenna Manley PA-C LAB BLOOD ORDERABLES Final Result [facility]
[address] [place] [address], * (ABNORMAL) CBC (No Diff) (12/23/2023 10:01 AM EST) WBC 11.03(H) 3.40 - 10.80 10*3/mm3 12/23/2023 12:31 PM [facility] RBC 5.84(H) 4.14 - 5.80 10*6/mm3 12/23/2023 12:31 PM [facility] Hemoglobin 17.1 13.0 - 17.7 g/dL 12/23/2023 12:31 PM [facility] Hematocrit 52.2(H) 37.5 - 51.0 % 12/23/2023 12:31 PM [facility] MCV 89.4 79.0 - 97.0 fL 12/23/2023 12:31 PM [facility] MCH 29.3 26.6 - 33.0 pg 12/23/2023 12:31 PM EST [facility] MCHC 32.8 31.5 - 35.7 g/dL 12/23/2023 12:31 PM EST [facility] RDW 14.7 12.3 - 15.4 % 12/23/2023 12:31 PM EST [facility] RDW-SD 48.0 37.0 - 54.0 fl 12/23/2023 12:31 PM EST [facility] MPV 11.1 6.0 - 12.0 fL 12/23/2023 12:31 PM EST [facility] Platelets 232 140 - 450 10*3/mm3 12/23/2023 12:31 PM EST [facility] Blood Venipuncture / Unknown 12/23/2023 10:01 AM EST 12/23/2023 10:52 AM EST Kenna Manley PA-C LAB BLOOD ORDERABLES Final Result [facility]
[address] [place] [address], documented in this encounter Visit Diagnoses Diagnosis Spinal stenosis of lumbar region, unspecified whether neurogenic claudication present- Primary Body mass index (BMI) 28.0-28.9, adult documented in this encounter Care Teams Physician Liaison Relationship Specialty Start Date End Date Robinson Manley MD [address] [facility] [address] [place] [address] PCP - General Family Medicine 07/09/23 documented as of this encounter
--- OUTSIDE RECORDS SUMMARY | 2024-09-29 14:37 | XMS_ITS | Encounter Summary ---
Author Organization [facility] ystem Address [address] [place] [address] Care Team Providers Care Independent Producer Name Role Phone Robinson Manley MD Primary Care Provider [phone]- [phone] Reason for Visit * Auth/Cert (Routine) Specialty Diagnoses / Procedures Referred By Contac t Referred To Contact Diagnoses Spinal stenosis of lumbar region, unspecified whether neurogenic claudication present Spinal stenosis of lumbar region, unspecified whether neurogenic claudication present [M48.061] Procedures OK GILMORE FACETECTOMY & FORAMOTOMY 1 VRT SGM LUMBAR LUMBAR LAMINECTOMY DISCECTOMY DECOMPRESSIO, N POSTERIOR 1-2 LEVELS, L3-4 Referral ID Status Reason Start Date Expiration Date Visits Re quested Visits Authorized [id number] 1 1 Encounter Details Date Type Department Care Team (Late st Contact Info) Description 01/01/2024 12:13 PM EST - 01/01/2024 2:32 PM EST Surgery [facility] OR [address] [place] [id number] Hank Hitchcock MD [address] [facility] [address] [place] [address] LUMBAR LAMINECTOMY L3-4 [29260 (CPT??)] Social History Tobacco Use Types Packs/Day Years Used Date Smoking Tobacco: Former Cigarettes Q uit: 1974 Passive Smoke Exposure: Past Smokeless Tobacco: Never Alcohol Use Standard Drinks/Week Comments Yes 0 (1 standard drink = 0.6 oz pur e alcohol) BEER PER WK Abuse Screen Answer Date Recorded Feels Unsafe at Home or Work/School no 01/01/2024 Feels Threatened by Someone no 12/13 Does Anyone Try to Keep You From Having Contact with Others or Doing Things Outside Your Home? no 01/01/2024 Physical Signs of Abuse Present no 01/01/2024 Housing Stability Answer Date Recorded Current Living Arrangements home 12/13 Potentially Unsafe Housing Conditions Not on lauren e 01/01/2024 Family and Community Support Answer Hamlet e [...] or training? Not on file Preferred Language Gabonese 12/23/2023 Sex and Gender Information Value Date Recorded Sex Assigned at Not on file Legal Sex Male 1:15 PM EDT Gender Identity Not on file Sexual Orientation Not on file documented as of this encounter Last Filed Vital Signs Vital Sign Reading Time Taken Comments Blood Pressure 150/111 01/01/2024 11:14 AM EST Pulse 108 01/01/2024 11:14 AM EST Temperature 36.1 ??C (97 ??F) 01/01/2024 11:14 AM EST Respiratory Rate 16 01/01/2024 11:14 AM EST Oxygen Saturation 97% 01/01/2024 11:14 AM EST Inhaled Oxygen Concentration - - Weight - - Height - - Body Mass Index - - documented in this encounter Discharge Summaries * Kenna Manley PA-C - 01/07/2024 2:06 PM EST Images from the original note were not included. [facility] Date of Admission: 01/01/2024 Date of Discharge: 01/07/2024 Discharge Diagnosis: Spinal stenosis of lumbar region, unspecified whether neurogenic claudication present [M48.061] Spinal stenosis of lumbar region with neurogenic claudication [M48.062] Lumbar stenosis [M48.061] Seizure [R56.9] Procedures Performed: Procedure(s): LUMBAR LAMINECTOMY L3-4 Presenting Problem/History of Present Illness Spinal stenosis of lumbar region, unspecified whether neurogenic claudication present [M48.061] Spinal stenosis of lumbar region with neurogenic claudication [M48.062] Lumbar stenosis [M48.061] Seizure [R56.9] Hospital Course: Patient is a 78 y.o. male presented to the neurosurgery office with 1 year of progressively worsening back and bilateral lower extremity pain and weakness when ambulating. MRI lumbar spine showed severe stenosis at L3-[address] Hitchcock recommended L3-4 laminectomy. He underwent uneventful L3-4 laminectomy on 01/02/2024. Postoperatively, he experienced a tonic-clonic seizure. CT head showed small SAH in the right parietal sulci likely result of a fall a couple days prior to surgery and anticoagulation with Xarelto. He did not have any further seizures. In regards to his lower extremity symptoms, he noted significant improvement in his lower extremity symptoms. Back pain controlled withp.o. pain meds. He remained neurologically intact on exam. We will continue Keppra 500 mg twice daily at discharge and he will follow-up with the neurology on an outpatient basis. He may restart Xarelto on 01/08/2024. PT recommended inpatient rehab at discharge. He is ambulating and voiding without difficulty. Patient will follow-up in the neurosurgery office in 2 weeks for wound check. Activities, restrictions and wound care were discussed with patient. He discharges to rehab today in satisfactory condition. Condition on Discharge: Satisfactory Discharge Disposition: Rehab Facility or Unit (DC - External) Discharge Medications Discharge Medications New Medications Instructions Start Date HYDROcodone-acetaminophen 5-325 MG per tablet Commonly known as: NORCO 1 tablet, Oral, Every 6 Hours PRN levETIRAcetam 500 MG tablet Commonly known as: KEPPRA 500 mg, Oral, Every 12 Hours Scheduled sennosides-docusate 8.6-50 MG per tablet Commonly known as: PERICOLACE 1 tablet, Oral, Daily, Take while using hydrocodone to prevent constipation Continue These Medications Instructions Start Date allopurinol 100 MG tablet Commonly known as: ZYLOPRIM 1 tablet, Oral, Daily Livalo 4 MG tablet Generic drug: Pitavastatin Calcium 4 mg, Oral, Nightly omeprazole 20 MG capsule Commonly known as: priLOSEC 20 mg, Oral, Daily probenecid 500 MG tablet Commonly known as: BENEMID 250 mg, Oral, Daily, 1/2 PILL QD TART PELLETIER PO 1 tablet, Oral, Daily Stop These Medications Xarelto 20 MG tablet Generic drug: rivaroxaban Patient Education: Patient is to limit activity, and to avoid bending, lifting, twisting. In general we recommend limiting physical activity until first postoperative appointment in 2 weeks. Attempt to not lift more than 5 to 10 pounds. Walk a reasonable amount, if feeling very well, attempt to ease into walking long distances. Patient may shower 48 hours postoperatively. Do not submerge the incision site, this includes baths, pools, hot tubs, etc. Keep incision as dry as possible. You have sutures that are under the skin that will dissolve on their own. Bandage may be removed 48 hours postoperatively. If for comfort reasons heprefers to have the bandage on, that is welcome. If wound is seeping a small amount, we recommend to continue bandaging. Common postoperative symptoms from a lumbar fusion include: Muscle spasms in the lower back, postoperative back pain, a lesser intensity of symptoms experienced prior to surgery. Patient is to contact our office if they he any the following: Incision opening/stitches coming apart. Significant swelling around the incision site. (May attempt to ice incision first.) Increased redness around the incision site and it becoming warm to the touch. Signs on infection such as: fever, chills, etc. It is normal to have a small amount yellow/red discharge for the first week, contact our office if it is excessive (soaking through entire bandages) or cloudy in nature. Excessive pain. The above list is not exhaustive. May restart Xarelto on 01/08/2024. Follow-up Appointments: Contact information for follow-up providers Robinson Manley MD . Specialty: Family Medicine Contact information: [address] [place] [address] [facility] [address] Kenna Manley PA-C Follow up in 2 week(s). Specialty: Neurosurgery Contact information: [address] [facility] [address] Contact information for after-discharge care Destination [facility] . Service: [facility]pc Contact information: [address] [facility] [address] Kenna Manley PA-C 01/07/24 14:06 EST Cosigned by Hank Hitchcock MD at 01/07/2024 2:52 PM EST Associated attestation - Hank Hitchcock MD - 01/07/2024 2:52 PM EST I have reviewed this documentation and agree. * Stacey Kenney RN - 01/06/2024 11:46 AM EST Images from the original note were not included. 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 Male) Date of 1945 Social Security Number [id number] [address] [place], [place] [address] Home Phone Church None Marital Status Single Admission Date 01/01/24 Admission Type Elective Admitting Provider Hank Hitchcock MD Attending Provider Hank Hitchcock MD Department, Room/Bed [address], S380/1 Discharge Date Discharge Disposition Discharge Destination Attending Provider: Hank Hitchcock MD Allergies: Triple Antibiotic W/hydrocortisone [Boihrml-xbuaedis-phzrnyfmi-hc], Codeine Isolation: None Infection: None Code Status: No CPR Ht: 185.4 cm (73 ) Wt: 99.8 kg (220 lb 0.3 oz) Admission Cmt: None Principal Problem: None Active Insurance as of 01/01/2024 Primary Coverage Payor Plan Insurance Group Employer/Plan Group ANTHEM MEDICARE REPLACEMENT ANTHEM MEDICARE ADVANTAGE [id number] Payor Plan Address Payor Plan Phone Number Payor Plan Fax Number Effective Dates [address] 11/11/2018 - None Entered [facility] [id number] Subscriber Name Subscriber Date Member ID SANTO TERRELL 1945 [id number] 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 He was still able toparticipate in some ambulation activities in hallway Anticipated Discharge Disposition (PT): inpatient rehabilitation facility 1130 Occupational Therapy Notes (most recent note) Rocio Wilson, OT at 01/03/24 1315 Patient Name: Santo Terrell : 1945 Today's Date: 01/03/2024 Admit Date: 01/01/2024 Visit Dx: ICD-10-CM ICD-9-CM 1. 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 Essential hypertension Abnormal echocardiogram Nonrheumatic mitral valve regurgitation Preoperative clearance Spinal stenosis of lumbar region with neurogenic claudication Lumbar stenosis Seizure Past Medical History: Diagnosis Date Allergies PHOLCODINE [...] 01/01/2024 Procedure: LUMBAR LAMINECTOMY L3-4; Surgeon: Hank Hitchcock MD; Location: [facility]S [facility]; Service: Neurosurgery; Laterality: N/A; SHOULDER ARTHROSCOPY Right TEETH EXTRACTION General Information Row Name 01/03/24 1446 OT Time and Intention Document Type evaluation -CS Mode of Treatment occupational therapy -CS Row Name 01/03/24 1446 General Information Patient Profile Reviewed yes -CS Prior Level of Function independent:;all household mobility;ADL's -CS Existing Precautions/Restrictions fall;spinal;oxygen therapy device and L/min;seizures -CS Barriers to Rehab medically complex - Row Name 01/03/24 1446 Living Environment People in Home alone - Row Name 01/03/24 1446 Home Main Entrance Number of Stairs, Main Entrance one -CS Row Name 01/03/24 1446 Stairs Within Home, Primary Number of Stairs, Within Home, Primary two -CS Row Name 01/03/24 1446 Cognition Orientation Status (Cognition) oriented x 3;situation - Row Name 01/03/24 1446 Safety Issues, Functional Mobility Impairments Affecting Function (Mobility) balance;strength;pain;postural/trunk control;endurance/activity tolerance - User Oliver (r) = Recorded By, (t) = Taken By, (c) = Cosigned By Initials Name Provider Type Rocio Fuentes OT Occupational Therapist Mobility/ADL's Row Name 01/03/24 144 Bed Mobility Bed Mobility rolling left;rolling right - Rolling Left Edmunds (Bed Mobility) minimum assist (75% patient effort);verbal cues -CS Rolling Right Ed[place]ds (Bed Mobility) minimum assist (75% patient effort);verbal cues -CS Assistive Device (Bed Mobility) bed rails;draw sheet - Row Name 01/03/24 144 Transfers Transfers bed-chair transfer;sit-stand transfer;stand-sit transfer - Row Name 01/03/24 144 Bed-Chair Transfer Bed-Chair Edmunds (Transfers) dependent (less than 25% patient effort);2 person assist;verbal cues -CS Assistive Device (Bed-Chair Transfers) lift device - Row Name 01/03/241446 Sit-Stand Transfer Sit-Stand Edmunds (Transfers) minimum assist (75% patient effort);2 person assist;verbal cues -CS Assistive Device (Sit-Stand Transfers) walker, front-wheeled - Row Name 01/03/24 144 Stand-Sit Transfer Stand-Sit Edmunds (Transfers) minimum assist (75% patient effort);2 person assist;verbal cues -CS Assistive Device (Stand-Sit Transfers) walker, front-wheeled - Row Name 01/03/24 144 Functional Mobility Functional Mobility- Ind. Level moderate assist (50% patient effort);2 person assist required;verbal cues required - Functional Mobility- Device walker, front-wheeled -CS Functional Mobility-Distance (Feet) -- household distance - Functional Mobility- Comment Pt initially Min Ax2 however developed posterior lean and noted R kneebuckling w/ c/o fatigue, close chair follow -CS Row Name 01/03/24 1447 Activities of Daily Living BADL Assessment/Intervention lower body dressing;feeding - Row Name 01/03/24 1447 Lower Body Dressing Assessment/Training Edmunds Level (Lower Body Dressing) don;socks;dependent (less than 25% patient effort) - Position (Lower Body Dressing) supine - Row Name 01/03/24 1447 Self-Feeding Assessment/Training Edmunds Level (Feeding) liquids to mouth;set up;finger foods -CS Position (Self-Feeding) supported sitting - User Oliver (r) = Recorded By, (t) = Taken By, (c) = Cosigned By Initials Name Provider Type Rocio Fuentes OT Occupational Therapist Obj/Interventions Row Name 01/03/24 1448 Sensory Assessment (Somatosensory) Sensory Assessment (Somatosensory) UE sensation intact - Row Name 01/03/24 1448 Range of Motion Comprehensive General Range of Motion bilateral upper extremity ROM WFL - Row Name 01/03/24 1448 Strength Comprehensive (MMT) Comment, General Manual Muscle Testing (MMT) Assessment Deferred - Row Name 01/03/24 1448 Balance Balance Assessment sitting static balance;sitting dynamic balance;standing static balance;standing dynamic balance - Static Sitting Balance standby assist - Dynamic Sitting Balance contact guard -CS Position, Sitting Balance sitting in chair - Static Standing Balance minimal assist;2-person assist - Dynamic Standing Balance moderate assist;2-person assist -CS Position/Device Used, Standing Balance supported;walker, rolling - Balance Interventions sitting;standing;static;dynamic;dynamic reaching;occupation based/functional task;weight shifting activity - User Oliver (r) = Recorded By, (t) = Taken By, (c) = Cosigned By Initials Name Provider Type Rocio Fuentes OT Occupational Therapist Goals/Plan [facility] Name 01/03/24 144 Transfer Goal 1 (OT) Activity/Assistive Device (Transfer Goal 1, OT) [id number]-gb-tbawg/xrouk-rp-hpm;toilet - Edmunds Level/Cues Needed (Transfer Goal 1, OT) minimum assist (75% or more patient effort) - Time Frame (Transfer Goal 1, OT) prison goal (LTG);10 days -CS Progress/Outcome (Transfer Goal 1, OT) goal ongoing -CS Row Name 01/03/24 1449 Dressing Goal 1 (OT) Activity/Device (Dressing Goal 1, OT) lower body dressing -CS Edmunds/Cues Needed (Dressing Goal 1, OT) minimum assist (75% or more patient effort) -CS Time Frame (Dressing Goal 1, OT) termite treater goal (LTG);10 days -CS Strategies/Barriers (Dressing Goal 1, OT) don/doff socks w/ AAD -CS Progress/Outcome (Dressing Goal 1, OT) goal ongoing -CS Row Name 01/03/24 1449 Toileting Goal 1 (OT) Activity/Device (Toileting Goal 1, OT) adjust/manage clothing;perform perineal hygiene -CS Edmunds Level/Cues Needed (Toileting Goal 1, OT) moderate assist (50-74% patient effort) -CS Time Frame (Toileting Goal 1, OT) prison goal (LTG);10 days -CS Progress/Outcome (Toileting Goal 1, OT) goal ongoing -CS Row Name 01/03/24 1441 Therapy Assessment/Plan (OT) Planned Therapy Interventions (OT) activity tolerance training;adaptive equipment training;BADL retraining;functional balance retraining;occupation/activity based interventions;ROM/therapeutic exercis e;strengthening exercise;transfer/mobility retraining -CS User Oliver (r) = Recorded By, (t) = Taken By, (c) = Cosigned By Initials Name Provider Type CS Rocio Wilson, OT Occupational Therapist Clinical Impression Row Name 01/03/24 1450 Pain Assessment Pretreatment Pain Rating 0/10 - no pain -CS Posttreatment Pain Rating 0/10 - no pain -CS Row Name 01/03/24 1450 Plan of Care Review Plan of Care Reviewed With patient;family -CS Progress improving -CS Outcome Evaluation OT eval complete. Pt presents w/ deficits in balance, strength, and functional endurance warranting cont skilled IPOT POC to promote return to PLOF. Recommend pt DC to IP rehab. -CS Row Name 01/03/24 1450 Therapy Assessment/Plan (OT) Patient/Family Therapy Goal Statement (OT) Return to PLOF -CS Rehab Potential (OT) good, to achieve stated therapy goals -CS Criteria for Skilled Therapeutic Interventions Met (OT) yes;skilled treatment is necessary -CS Therapy Frequency (OT) daily -CS Row Name 01/03/24 1450 Therapy Plan Review/Discharge Plan (OT) Anticipated Discharge Disposition (OT) inpatient rehabilitation facility - Row Name 01/03/24 1450 Vital Signs Pre SpO2 (%) 95 -CS O2 Delivery Pre Treatment room air -CS Post SpO2 (%) 97 -CS O2 Delivery Post Treatment room air -CS Pre Patient Position Supine -CS Intra Patient Position Standing -CS Post Patient Position Sitting -CS Row Name 01/03/24 1450 Positioning and Restraints Pre-Treatment Position in bed -CS Post Treatment Position chair -CS In Chair notified nsg;reclined;call light within reach;encouraged to call for assist;exit alarm on;RUE elevated;LUE elevated;legs elevated;with family/caregiver;waffle cushion;on mechanical lift sling -CS User Oliver (r) = Recorded By, (t) = Taken By, (c) = Cosigned By Initials Name Provider Type CS Rocio Wilson, OT Occupational Therapist Outcome Measures Row Name 01/03/24 145 How much help from another is currently needed... Putting on and taking off regular lower body clothing? 2 -CS Bathing (including washing, rinsing, and drying) 2 -CS Toileting (which includes using toilet bed burnham or urinal) 2 -CS Putting on and taking off regular upper body clothing 2 -CS Taking care of personal grooming (such as brushing teeth) 3 -CS Eating meals 4 -CS AM-PAC 6 Clicks Score (OT) 15 -CS Row Name 01/03/24 0941 How much help from another person do you currently need... Turning from your back to your side while in flat bed without using bedrails? 2 -ND Moving from lying on back to sitting on the side of a flat bed without bedrails? 2 -ND Moving to and from a bed to a chair (including a wheelchair)? 2 -ND Standing up from a chair using your arms (e.g., wheelchair, bedside chair)? 2 -ND Climbing 3-5 steps with a railing? 1 -ND To walk in hospital room? 2 -ND AM-PAC 6 Clicks Score (PT) 11 -ND Highest Level of Mobility Goal 4 --> Transfer to chair/commode -ND Row Name 02/144901/03/24 0941 Functional Assessment Outcome Measure Options AM-PAC 6 Clicks Daily Activity (OT) -CS AM-PAC 6 Clicks Basic Mobility (PT)-ND User Oliver (r) = Recorded By, (t) = Taken By, (c) = Cosigned By Initials Name Provider Type Rocio Wilson, OT Occupational Therapist Catalina Doyle, VIDYA Physical Therapist Occupational Therapy Education Title: PT OT CERTIFIED BREASTFEEDING EDUCATOR Therapies (In Progress) Topic: Occupational Therapy (In Progress) Point: ADL training (In Progress) Description: Instruct learner(s) on proper safety adaptation and remediation techniques during self care or transfers. Instruct in proper use of assistive devices. Learning Progress Summary Patient Acceptance, E, NR by at 01/03/20241449 Family Acceptance, E, NR by CS at 01/03/20241449 Point: Home exercise program (Not Started) Description: Instruct learner(s) on appropriate technique for monitoring, assisting and/or progressing therapeutic exercises/activities. Learner Progress: Not documented in this visit. Point: Precautions (In Progress) Description: Instruct learner(s) on prescribed precautions during self-care and functional transfers. Learning Progress Summary Patient Acceptance, E, NR by CS at 01/03/20241449 Family Acceptance, E, NR by CS at 01/03/20241449 Point: Body mechanics (In Progress) Description: Instruct learner(s) on proper positioning and spine alignment during self-care, functional mobilityactivities and/or exercises. Learning Progress Summary Patient Acceptance, E, NR by CS at 01/03/20241449 Family Acceptance, E, NR by CS at 01/03/20241449 User Oliver Initials Effective Dates Name Provider Type [facility] 07/13/21 - Rocio Wilson OT Occupational Therapist OT OT Recommendation and Plan Planned Therapy Interventions (OT): activity tolerance training, adaptive equipment training, BADL retraining, functional balance retraining, occupation/activity based interventions, ROM/therapeutic exercise, strengthening exercise, transfer/mobility retraining Therapy Frequency (OT): daily Plan of Care Review Plan of Care Reviewed With: patient, family Progress: improving Outcome Evaluation: OT eval complete. Pt presents w/ deficits in balance, strength, and functional endurance warranting cont skilled IPOT POC to promote return to PLOF. Recommend pt DC to IP rehab. Time Calculation: Evaluation Complexity (OT) Review Occupational Profile/Medical/Therapy History Complexity: expanded/moderate complexity Assessment, Occupational Performance/Identification of Deficit Complexity: 5 or more performance deficits Clinical Decision Making Complexity (OT): detailed assessment/moderate complexity Overall Complexity of Evaluation (OT): moderate complexity Time Calculation- OT Row Name 01/03/24 1453 Time Calculation- OT OT Start Time 1315 -CS OT Received On 01/03/24 -CS OT Goal Re-Cert Due Date 01/13/24 -CS Timed Charges 06181 - OT Therapeutic Activity Minutes 18 -CS 00691 - OT Self Care/Mgmt Minutes 5 -CS Untimed Charges OT Eval/Re-eval Minutes 31 -CS Total Minutes Timed Charges Total Minutes 23 -CS Untimed Charges Total Minutes 31 -CS Total Minutes 54 -CS User Oliver (r) = Recorded By, (t) = Taken By, (c) = Cosigned By Initials Name Provider Type CS Rocio Wilson OT Occupational Therapist Therapy Charges for Today Code Description Service Date Service Provider Modifiers Qty 41415507606 HC OT THERAPEUTIC ACT EA 15 MIN 01/03/2024 Rocio Wilson OT GO 1 11842854418 HC OT SELF CARE/MGMT/TRAIN EA 15 MIN 01/03/2024 Rocio Wilson OT GO 1 53083220816 HC OT EVAL MOD COMPLEXITY 3 01/03/2024 Rocio Wilson OT GO 1 94346983826 HC OT THER SUPP EA 15 MIN 01/03/2024 Rocio Wilson OT GO 2 Rocio Wilson OT 01/03/2024 1453 documented in this encounter Discharge Instructions * Discharge Instructions* Lorna Phelan RN - 01/07/2024 2:02 PM EST Patient is to limit activity, and to avoid bending, lifting, twisting. In general we recommend limiting physical activity until first postoperative appointment in 2 weeks. Attempt to not lift more than 5 to 10 pounds. Walk a reasonable amount, if feeling very well, attempt to ease into walking long distances. Patient may shower 48 hours postoperatively. Do not submerge the incision site, this includes baths, pools, hot tubs, etc. Keep incision as dry as possible. You have sutures that are under the skin that will dissolve on their own. Bandage may be removed 48 hours postoperatively. If for comfort reasons heprefers to have the bandage on, that is welcome. If wound is seeping a small amount, we recommend to continue bandaging. Common postoperative symptoms from a lumbar fusion include: Muscle spasms in the lower back, postoperative back pain, a lesser intensity of symptoms experienced prior to surgery. Patient is to contact our office if they he any the following: Incision opening/stitches coming apart. Significant swelling around the incision site. (May attempt to ice incision first.) Increased redness around the incision site and it becoming warm to the touch. Signs on infection such as: fever, chills, etc. It is normal to have a small amount yellow/red discharge for the first week, contact our office if it is excessive (soaking through entire bandages) or cloudy in nature. Excessive pain. The above list is not exhaustive. MAY RESUME XARELTO ON 01/08/24 * Attachments The following attachments cannot be sent through Care Everywhere. * Spinal Stenosis Ovoa-bt-Vonr (Gabonese) * Seizure Adult Cshy-dz-Bozf (Gabonese) * Gout Path-le-Zpxe (Gabonese) * Understanding Your Risk for Falls (Gabonese) * How to Use an Incentive Spirometer (Gabonese) * How to Prevent Constipation After Surgery (Gabonese) documented in this encounter Medications at Time of Discharge allopurinol (ZYLOPRIM) 100 MG tablet Take 1 tablet by mouth Daily. 05/29/2023 Livalo 4 MG tabletIndications :Hypercholesterol emia Take 1 tablet by mouth Every Night. 90 tablet 1 07/09/2023 naloxone (NARCAN) 4 MG/0.1ML nasal spray Call 911. Don't prime. [place]uck[place] in 1 nostril for overdose. Repeat in 2-3 minutes in other nostril if no or minimal breathing/respons iveness. 2 each 01/07/2024 omeprazole (priLOSEC) 20 MG capsule Take 1 capsule by mouth Daily. probenecid (BENEMID) 500 MG tablet Take 0.5 tablets by mouth Daily. 1/2 PILL QD sennosides-docusa te (senna-docusate sodium) 8.6-50 MG per tablet Take 1 tablet by mouth Daily. Take while using hydrocodone to prevent constipation 30 tablet 01/07/2024 TART PELLETIER PO Take 1 tablet by mouth Daily. HYDROcodone-aceta minophen (NORCO) 5-325 MG per tabletIndications :Spinal stenosis of lumbar region with neurogenic claudication Take 1 tablet by mouth Every 6 (Six) Hours As Needed for Moderate Pain for up to 5 days. 20 tablet 01/03/2024 4 HYDROcodone-aceta minophen (NORCO) 5-325 MG per tabletIndications :Spinal stenosis of lumbar region with neurogenic claudication Take 1 tablet by mouth Every 6 (Six) Hours As Needed for Moderate Pain for up to 5 days. 20 tablet 01/07/2024 4 levETIRAcetam (KEPPRA) 500 MG tablet Take 1 tablet by mouth Every 12 (Twelve) Hours. 60 tablet 2 01/07/2024 4 documented as of this encounter Progress Notes * Brown Rodriguez MD - 01/07/2024 1:07 PM EST Images from the original note were not included. [facility] PROGRESS NOTE Patient Name: Santo Terrell : 1945 Date of Admission: 01/01/2024 Primary Care Physician: Robinson Manley MD Subjective Subjective CC: ICU transfer HPI: Patient denies depression or SI. States that he is doing well. Continues to c/o gout. Objective Objective Vital Signs: Temp: [97.8 ??F (36.6 ??C)-98.8 ??F (37.1 ??C)] 97.8 ??F (36.6 ??C) Heart Rate: [79-102] 91 Resp: [16] 16 BP: (119-136)/(81-91) 128/83 Physical Exam: Constitutional: No acute distress, awake, alert, sitting up in chair, family at bedside HENT: NCAT, mucous membranes moist Respiratory: Clear to auscultation bilaterally, respiratory effort normal Cardiovascular: RRR, no murmurs, rubs, or gallops Gastrointestinal: Positive bowel sounds, soft, nontender, nondistended Musculoskeletal: No bilateral ankle edema Psychiatric: Appropriate affect, cooperative Neurologic: Oriented x 3, strength symmetric in all extremities, Cranial Nerves grossly intact to confrontation, speech clear Skin: No rashes Results Reviewed: LAB RESULTS: Lab 01/04/24 0404 01/03/24 0423 01/02/24 0731 WBC 9.20 14.22* 12.19* HEMOGLOBIN 14.3 14.1 14.5 HEMATOCRIT 43.7 44.7 45.7 PLATELETS 152 160 165 NEUTROS ABS -- -- 11.18* IMMATURE GRANS (ABS) -- -- 0.06* LYMPHS ABS -- -- 0.61* MONOS ABS -- -- 0.33 EOS ABS -- -- 0.00 MCV 88.6 88.7 87.9 Lab 01/07/24 0541 01/06/24 1800 01/06/24 0507 01/05/24 0515 01/04/24 0404 01/03/24 0423 01/02/24 0731 SODIUM 135* -- 135* 137 138 142 144 POTASSIUM 4.2 4.8 3.4* 3.4* 3.6 4.9 4.5 CHLORIDE 101 -- 100 103 106 107 109* CO2 25.0 -- 24.0 24.0 22.0 26.0 19.0* ANION GAP 9.0 -- 11.0 10.0 10.0 9.0 16.0* BUN 20 -- 21 20 21 20 15 CREATININE 1.10 -- 1.11 1.10 0.96 1.13 1.38* EGFR 69.1 -- 68.4 69.1 81.4 66.9 52.7* GLUCOSE 169* -- 189* 139* 135* 102* 121* CALCIUM 9.2 -- 8.4* 8.1* 8.3* 8.7 8.3* MAGNESIUM 1.8 -- 1.7 1.7 1.9 2.3 2.5* PHOSPHORUS -- -- -- -- -- -- 4.8* Lab 01/03/24 0423 FIO2 28 CARBOXYHEMOGLOBIN (VENOUS) 1.2 Brief Urine Lab Results None Microbiology Results Abnormal None No radiology results from the last 24 hrs Results for orders placed in visit on 12/10/23 Adult Transthoracic Echo Complete W/ Cont if Necessary Per Protocol Interpretation Summary ??? Left ventricular systolic function is normal. Calculated left ventricular EF = 58.5% ??? Left ventricular wall thickness is consistent with mild concentric hypertrophy. ??? Moderate mitral valve regurgitation is present. ? ? Estimated right ventricular systolic pressure from tricuspid regurgitation is normal (<35 mmHg). Current medications: Scheduled Meds:allopurinol, 100 mg, Oral, Daily atorvastatin, 40 mg, Oral, Daily diphenhydrAMINE, 12.5 mg, Intravenous, Once enoxaparin, 40 mg, Subcutaneous, Daily levETIRAcetam, 500 mg, Oral, Q12H pantoprazole, 40 mg, Oral, Q AM predniSONE, 40 mg, Oral, Daily With Breakfast probenecid, 250 mg, Oral, Daily sodium chloride, 3 mL, Intravenous, Q12H Continuous Infusions:sodium chloride, 50 mL/hr, Last Rate: 50 mL/hr (01/03/24 1146) PRN Meds:.??? acetaminophen ??? docusate sodium ??? HYDROcodone-acetaminophen ??? magnesium hydroxide ??? [DISCONTINUED] HYDROmorphone AND naloxone ??? ondansetron ODT OR ondansetron ??? polyethylene glycol ??? Potassium Replacement - Follow Nurse / BPA Driven Protocol ??? senna-docusate sodium ??? sodium chloride ??? sodium chloride Assessment & Plan Assessment & Plan Active Hospital Problems Diagnosis POA ??? 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 Lumbar stenosis [M48.061] Yes ??? Seizure [R56.9] Yes Resolved Hospital Problems Diagnosis Date Resolved POA ??? TUNDE (acute kidney injury) [N17.9] 01/03/2024 Unknown Brief Hospital Course to date: Santo Terrell is a 78 y.o. male s/p L3-[address] Hitchcock with a post op seizures in PACU and then again during transfer to the ICU. Neurology has johnny following and loaded patient with keppra. CT head showed scattered SAH in the right parietal sulci Lumbar Spinal Stenosis --s/p L3/L4 Laminectomy --PT/OT recs IRF New Onset Seizure 2nd to Traumatic SAH while on Xarelto --neuro following. Recs to stay off eliquis until cleared by NS and continue keppra 500mg BID indefinitely, no Driving or heavy equipment x 90 days, f/u neurology clinic Scattered SAH Right Parietal Sulca --holding eliquis --MRI brain showed scattered SAH with multiple cerebral cortical sulci, right greater than left --no aneurysm on MRA Afib --holding xarelto d/t above HTN HL CAD Gout --continue home allopurinol and probenecid --s/p colichine with no relief --prednisone 40mg daily day 2/3. Expected Discharge Location and Transportation: PT recs rehab, bed at [facility] awaiting precert Expected Discharge Expected Discharge Date: 01/08/2024; Expected Discharge Time: DVT prophylaxis: Medical and mechanical DVT prophylaxis orders are present. AM-PAC 6 Clicks Score (PT): 18 (01/07/24 0816) CODE STATUS: Code Status and Medical Interventions: Ordered at: 01/01/24 6910 Medical Intervention Limits: NO artificial nutrition NO intubation (DNI) Code Status (Patient has no pulse and is not breathing): No CPR (Do Not Attempt to Resuscitate) Medical Interventions (Patient has pulse or is breathing): Limited Support Brown Rodriguez MD 01/07/24 * Malcom Contreras MD - 01/07/2024 12:24 PM EST Neurology Patient Care Team: Robinson Manley MD as PCP - General (Family Medicine) Chen Wyatt MD as Consulting Physician (Cardiology) Kelle Small APRN as Referring Physician (Family Medicine) Chief complaint: Postop seizures History: Patient had no further seizures. He is no side effects from the increase Keppra to 500 mg twice daily. Is apparently planning to go to rehab. Past Medical History: Diagnosis Date Allergies PHOLCODINE TRIPLE ANTIBIOTIC Chronic atrial fibrillation Chronic atrial fibrillation, unspecified CKD (chronic kidney disease), stage III DDD (degenerative disc disease), lumbar Full dentures GERD without esophagitis Hypercholesterolemia Hypertension Mitral regurgitation 07/04/2022 MODERATE Nonrheumatic mitral (valve) insufficiency Paroxysmal atrial fibrillation SOB (shortness of breath) Wears glasses Vital Signs Vitals: 01/06/24 2343 01/07/24 0405 01/07/24 0703 01/07/24 1147 BP: 136/91 119/81 125/85 BP Location: Right arm Right arm Right arm Patient Position: Sitting Lying Lying Pulse: 79 89 83 Resp: 16 16 16 Temp: 98.2 ??F (36.8 ??C) 98.3 ??F (36.8 ??C) 98 ??F (36.7 ??C) 97.8 ??F (36.6 ??C) TempSrc: Oral Oral Oral SpO2: 93% 96% 96% Physical Exam: General: Awake and alert Neuro: Oriented to person place and time. Speech is normal. Extremities well. Results Review: Sodium 135 Results from last 7 days Lab Units 01/04/24 0404 WBC 10*3/mm3 9.20 HEMOGLOBIN g/dL 14.3 HEMATOCRIT % 43.7 PLATELETS 10*3/mm3 152 Results from last 7 days Lab Units 01/07/24 0541 01/06/24 1800 01/06/24 0507 01/05/24 0515 SODIUM mmol/L 135* -- 135* 137 POTASSIUM mmol/L 4.2 4.8 3.4* 3.4* CHLORIDE mmol/L 101 -- 100 103 CO2 mmol/L 25.0 -- 24.0 24.0 BUN mg/dL 20 -- 21 20 CREATININE mg/dL 1.10 -- 1.11 1.10 CALCIUM mg/dL 9.2 -- 8.4* 8.1* GLUCOSE mg/dL 169* -- 189* 139* Imaging Results (Last 24 Hours) No results found for the last 24 hours. Assessment: Postop procedures. Traumatic subarachnoid hemorrhage. Postop lumbar surgery Plan: Okay to discharge anytime. Outpatient follow-up Dr. Braxton in 3 months. No driving for 3 months. Comment: Usually people with intracranial disease with subsequent seizures typically stay on the medication indefinitely. Defer to Dr. Braxton's judgment discussed this with the patient regarding his options. In the event he should stay on the medicine for the next 3 months. Okay to discharge anytime from my standpoint I discussed the patients findings and my recommendations with patient and family Malcom Contreras MD 01/07/24 12:24 EST * Kenna Manley PA-C - 01/07/2024 9:04 AM EST [facility] NEUROSURGERY PROGRESS NOTE 01/07/24 Chief Complaint: Lumbar stenosis Subjective: Stable overnight. Patient stating he doesn't really want to go to rehab 6 Days Post-Op Objective: BP 125/85 (BP Location: Right arm, Patient Position: Lying) Pulse 83 Temp 98 ??F (36.7 ??C) (Oral) Resp 16 SpO2 96% Physical Exam Awake, alert and oriented x 3 Speech f/c Opens eyes spontaneously EOM intact bilaterally Pupils 3mm reactive bilaterally Face symmetric Tongue midline 5/5 strength in bilateral lower extremities Normal sensation to light touch in all 4 extremities Dressing dry Intake/Output Summary (Last 24 hours) at 01/07/2024 0904 Last data filed at 01/07/2024 0600 Gross per 24 hour Intake 1345 ml Output 1050 ml Net 295 ml Current Facility-Administered Medications: acetaminophen (TYLENOL) tablet 1,000 mg, 1,000 mg, Oral, Q6H PRN, Sophie Aponte PA-C, 1,000 mg at01/07/24 0616 allopurinol (ZYLOPRIM) tablet 100 mg, 100 mg, Oral, Daily, Hank Hitchcock MD, 100 mg at 01/07/24 0816 atorvastatin (LIPITOR) tablet 40 mg, 40 mg, Oral, Daily, Hank Hitchcock MD, 40 mg at 01/06/24 2019 docusate sodium (COLACE) capsule 100 mg, 100 mg, Oral, BID PRN, Hank Hitchcock MD, 100 mg at 01/05/24 0900 Enoxaparin Sodium (LOVENOX) syringe 40 mg, 40 mg, Subcutaneous, Daily, Hank Hitchcock MD, 40 mgat 01/06/24 2019 HYDROcodone-acetaminophen (NORCO) 5-325 MG per tablet 1 tablet, 1 tablet, Oral, Q6H PRN, Kenna Manley PA-C, 1 tablet at 01/05/24 1422 levETIRAcetam (KEPPRA) tablet 500 mg, 500 mg, Oral, Q12H, Malcom Contreras MD, 500 mg at 01/07/24 0816 magnesium hydroxide (MILK OF MAGNESIA) 400 MG/5ML suspension 30 mL, 30 mL, Oral, Daily PRN, Hank Hitchcock MD [DISCONTINUED] HYDROmorphone (DILAUDID) injection 0.5 mg, 0.5 mg, Intravenous, Q2H PRN, 0.5 mg at 01/03/24 0810 AND naloxone (NARCAN) injection 0.4 mg, 0.4 mg, Intravenous, Q5 Min PRN, Hank Hitchcock MD ondansetron ODT (ZOFRAN-ODT) disintegrating tablet 4 mg, 4 mg, Oral, Q6H PRN OR ondansetron (ZOFRAN) injection 4 mg, 4 mg, Intravenous, Q6H PRN, Hank Hitchcock MD pantoprazole (PROTONIX) EC tablet 40 mg, 40 mg, Oral, Q AM, Brown Rodriguez MD, 40 mg at 01/07/24 0608 polyethylene glycol (MIRALAX) packet 17 g, 17 g, Oral, Daily PRN, Hank Hitchcock MD, 17 g at 01/07/24 0816 Potassium Replacement - Follow Nurse / BPA Driven Protocol, , Does not apply, PRN, Brown Rodriguez MD probenecid (BENEMID) tablet 250 mg, 250 mg, Oral, Daily, Hank Hitchcock MD, 250 mg at 01/07/24 0816 sennosides-docusate (PERICOLACE) 8.6-50 MG per tablet 1 tablet, 1 tablet, Oral, Nightly PRN, Hank Hitchcock MD, 1 tablet at 01/07/24 0816 sodium chloride 0.9 % flush 10 mL, 10 mL, Intravenous, PRN, Hank Hitchcock MD, 10 mL at 01/06/24 0917 sodium chloride 0.9 % flush 3 mL, 3 mL, Intravenous, Q12H, Hank Hitchcock MD, 3 mL at 01/07/24 0817 sodium chloride 0.9 % infusion 40 mL, 40 mL, Intravenous, PRN, Hank Hitchcock MD sodium chloride 0.9 % infusion, 50 mL/hr, Intravenous, Continuous, Hank Hitchcock MD, Last Rate: 50 mL/hr at 01/03/24 1146, 50 mL/hr at 01/03/24 1146 Laboratory Results: Lab 01/04/24 0404 01/03/24 0423 01/02/24 0731 WBC 9.20 14.22* 12.19* HEMOGLOBIN 14.3 14.1 14.5 HEMATOCRIT 43.7 44.7 45.7 PLATELETS 152 160 165 NEUTROS ABS -- -- 11.18* IMMATURE GRANS (ABS) -- -- 0.06* LYMPHS ABS -- -- 0.61* MONOS ABS -- -- 0.33 EOS ABS -- -- 0.00 MCV 88.6 88.7 87.9 Lab 01/07/24 0541 01/06/24 1800 01/06/24 0507 01/05/24 0515 01/04/24 0404 01/03/24 0423 01/02/24 0731 SODIUM 135* -- 135* 137 138 142 144 POTASSIUM 4.2 4.8 3.4* 3.4* 3.6 4.9 4.5 CHLORIDE 101 -- 100 103 106 107 109* CO2 25.0 -- 24.0 24.0 22.0 26.0 19.0* ANION GAP 9.0 -- 11.0 10.0 10.0 9.0 16.0* BUN 20 -- 21 20 21 20 15 CREATININE 1.10 -- 1.11 1.10 0.96 1.13 1.38* EGFR 69.1 -- 68.4 69.1 81.4 66.9 52.7* GLUCOSE 169* -- 189* 139* 135* 102* 121* CALCIUM 9.2 -- 8.4* 8.1* 8.3* 8.7 8.3* MAGNESIUM 1.8 -- 1.7 1.7 1.9 2.3 2.5* PHOSPHORUS -- -- -- -- -- -- 4.8* Lab 01/03/24 0423 FIO2 28 CARBOXYHEMOGLOBIN (VENOUS) 1.2 Brief Urine Lab Results None Microbiology Results (last 10 days) No results found for the last 240 hours. Diagnostic Imaging: I personally reviewed and interpreted the new imaging Assessment and plan: This is a 78-year-old male who underwent an uneventful L3-4 laminectomy on 01/01 but experienced postoperative seizure and found to have small subarachnoid hemorrhage. Patient is neurologically intacton exam today. Patient has not had any further seizures. No new neurological symptoms. Continue Keppra 500 mg twice daily. Dressing dry. PT recommends inpatient rehab and I discussed this with the patient. He is aware that we recommend whatever discharge planning PT recommends. Case management currently working on insurance precert. Possibly could discharge home later today however more than likely it will be tomorrow. Can resume Xarelto on 01/08. Activities, restrictions and wound care were disc ussed with the patient. Please call with questions or concerns. Any copied data from previous notes included in the (1) HPI, (2) PE, (3) MDM and/or Assessment and Plan has been reviewed and accurate as of 01/07/24. Kenna Manley PA-C 01/07/24 09:04 EST Cosigned by Hank Hitchcock MD at 01/07/2024 10:49 AM EST Associated attestation - Hank Hitchcock MD - 01/07/2024 10:49 AM EST I have reviewed this documentation and agree. * Brown Rodriguez MD - 01/06/2024 1:27 PM EST Images from the original note were not included. [facility] PROGRESS NOTE Patient Name: Santo Terrell : 1945 Date of Admission: 01/01/2024 Primary Care Physician: Robinson Manley MD Subjective Subjective CC: ICU transfer HPI: C/o gout, says that colchicine didn't help. Normally takes prednisone 40mg daily at home for gout flare. Doing well otw. Objective Objective Vital Signs: Temp: [97.4 ??F (36.3 ??C)-98.7 ??F (37.1 ??C)] 97.7 ??F (36.5 ??C) Heart Rate: [69-120] 78 Resp: [16-18] 16 BP: (101-139)/(71-92) 101/72 Physical Exam: Constitutional: No acute distress, awake, alert, sitting up in chair, family at bedside HENT: NCAT, mucous membranes moist Respiratory: Clear to auscultation bilaterally, respiratory effort normal Cardiovascular: RRR, no murmurs, rubs, or gallops Gastrointestinal: Positive bowel sounds, soft, nontender, nondistended Musculoskeletal: No bilateral ankle edema Psychiatric: Appropriate affect, cooperative Neurologic: Oriented x 3, strength symmetric in all extremities, Cranial Nerves grossly intact to confrontation, speech clear Skin: No rashes Results Reviewed: LAB RESULTS: Lab 01/04/24 0404 01/03/24 0423 01/02/24 0731 WBC 9.20 14.22* 12.19* HEMOGLOBIN 14.3 14.1 14.5 HEMATOCRIT 43.7 44.7 45.7 PLATELETS 152 160 165 NEUTROS ABS -- -- 11.18* IMMATURE GRANS (ABS) -- -- 0.06* LYMPHS ABS -- -- 0.61* MONOS ABS -- -- 0.33 EOS ABS -- -- 0.00 MCV 88.6 88.7 87.9 Lab 01/06/24 0507 01/05/24 0515 01/04/24 0404 01/03/24 0423 01/02/24 0731 SODIUM 135* 137 138 142 144 POTASSIUM 3.4* 3.4* 3.6 4.9 4.5 CHLORIDE 100 103 106 107 109* CO2 24.0 24.0 22.0 26.0 19.0* ANION GAP 11.0 10.0 10.0 9.0 16.0* BUN 21 20 21 20 15 CREATININE 1.11 1.10 0.96 1.13 1.38* EGFR 68.4 69.1 81.4 66.9 52.7* GLUCOSE 189* 139* 135* 102* 121* CALCIUM 8.4* 8.1* 8.3* 8.7 8.3* MAGNESIUM 1.7 1.7 1.9 2.3 2.5* PHOSPHORUS -- -- -- -- 4.8* Lab 01/03/24 0423 FIO2 28 CARBOXYHEMOGLOBIN (VENOUS) 1.2 Brief Urine Lab Results None Microbiology Results Abnormal None No radiology results from the last 24 hrs Results for orders placed in visit on 12/10/23 Adult Transthoracic Echo Complete W/ Cont if Necessary Per Protocol Interpretation Summary ??? Left ventricular systolic function is normal. Calculated left ventricular EF = 58.5% ??? Left ventricular wall thickness is consistent with mild concentric hypertrophy. ??? Moderate mitral valve regurgitation is present. ? ? Estimated right ventricular systolic pressure from tricuspid regurgitation is normal (<35 mmHg). Current medications: Scheduled Meds:allopurinol, 100 mg, Oral, Daily atorvastatin, 40 mg, Oral, Daily enoxaparin, 40 mg, Subcutaneous, Daily levETIRAcetam, 500 mg, Oral, Q12H [START ON 01/07/2024] pantoprazole, 40 mg, Oral, Q AM potassium chloride ER, 40 mEq, Oral, Q4H probenecid, 250 mg, Oral, Daily sodium chloride, 3 mL, Intravenous, Q12H Continuous Infusions:sodium chloride, 50 mL/hr, Last Rate: 50 mL/hr (01/03/24 1146) PRN Meds:.??? acetaminophen ??? docusate sodium ??? HYDROcodone-acetaminophen ??? magnesium hydroxide ??? [DISCONTINUED] HYDROmorphone AND naloxone ??? ondansetron ODT OR ondansetron ??? polyethylene glycol ??? Potassium Replacement - Follow Nurse / BPA Driven Protocol ??? senna-docusate sodium ??? sodium chloride ??? sodium chloride Assessment & Plan Assessment & Plan Active Hospital Problems Diagnosis POA ??? 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 Lumbar stenosis [M48.061] Yes ??? Seizure [R56.9] Yes Resolved Hospital Problems Diagnosis Date Resolved POA ??? TUNDE (acute kidney injury) [N17.9] 01/03/2024 Unknown Brief Hospital Course to date: Santo Terrell is a 78 y.o. male s/p L3-[address] Hitchcock with a post op seizures in PACU and then again during transfer to the ICU. Neurology has johnny following and loaded patient with keppra. CT head showed scattered SAH in the right parietal sulci Lumbar Spinal Stenosis --s/p L3/L4 Laminectomy --PT/OT recs IRF New Onset Seizure 2nd to Traumatic SAH while on Xarelto --neuro following. Recs to stay off eliquis until cleared by NS and continue keppra 500mg BID indefinitely, no Driving or heavy equipment x 90 days, f/u neurology clinic Scattered SAH Right Parietal Sulca --holding eliquis --MRI brain showed scattered SAH with multiple cerebral cortical sulci, right greater than left --no aneurysm on MRA Afib --holding xarelto d/t above HTN HL CAD Expected Discharge Location and Transportation: PT recs rehab Expected Discharge Expected Discharge Date: 01/08/2024; Expected Discharge Time: DVT prophylaxis: Medical and mechanical DVT prophylaxis orders are present. AM-PAC 6 Clicks Score (PT): 18 (01/05/24 1129) CODE STATUS: Code Status and Medical Interventions: Ordered at: 01/01/24 1643 Medical Intervention Limits: NO artificial nutrition NO intubation (DNI) Code Status (Patient has no pulse and is not breathing): No CPR (Do Not Attempt to Resuscitate) Medical Interventions (Patient has pulse or is breathing): Limited Support Brown Rodriguez MD 01/06/24 * Malcom Contreras MD - 01/06/2024 12:05 PM EST Neurology Patient Care Team: Robinson Manley MD as PCP - General (Family Medicine) Chen Wyatt MD as Consulting Physician (Cardiology) Kelle Small APRN as Referring Physician (Family Medicine) Chief complaint: Subarachnoid hemorrhage/seizures History: The patient is currently asymptomatic from a neurologic standpoint. His gout is healing up after 40 mg of prednisone and a dose of colchicine. He is currently on probenecid and allopurinol Is making progress with physical therapy. He had no irritability or sleepiness with the Keppra. Past Medical History: Diagnosis Date Allergies PHOLCODINE TRIPLE ANTIBIOTIC Chronic atrial fibrillation Chronic atrial fibrillation, unspecified CKD (chronic kidney disease), stage III DDD (degenerative disc disease), lumbar Full dentures GERD without esophagitis Hypercholesterolemia Hypertension Mitral regurgitation 07/04/2022 MODERATE Nonrheumatic mitral (valve) insufficiency Paroxysmal atrial fibrillation SOB (shortness of breath) Wears glasses Vital Signs Vitals: 01/05/24 2313 01/06/24 0350 01/06/24 0656 01/06/24 1115 BP: 121/78 124/89 123/81 101/72 BP Location: Right arm Right arm Left arm Right arm Patient Position: Lying Lying Lying Lying Pulse: 94 95 69 78 Resp: 16 16 16 16 Temp: 97.6 ??F (36.4 ??C) 98.7 ??F (37.1 ??C) 98.1 ??F (36.7 ??C) 97.7 ??F (36.5 ??C) TempSrc: Oral Oral Oral Oral SpO2: 94% 94% 95% 97% Physical Exam: General: Awake and alert Neuro: Oriented to person place and time. EEG is normal. Face is symmetrical. Results Review: Creatinine is 1.1 Results from last 7 days Lab Units 01/04/24 0404 WBC 10*3/mm3 9.20 HEMOGLOBIN g/dL 14.3 HEMATOCRIT % 43.7 PLATELETS 10*3/mm3 152 Results from last 7 days Lab Units 01/06/24 0507 01/05/24 0515 01/04/24 0404 SODIUM mmol/L 135* 137 138 POTASSIUM mmol/L 3.4* 3.4* 3.6 CHLORIDE mmol/L 100 103 106 CO2 mmol/L 24.0 24.0 22.0 BUN mg/dL 21 20 21 CREATININE mg/dL 1.11 1.10 0.96 CALCIUM mg/dL 8.4* 8.1* 8.3* GLUCOSE mg/dL 189* 139* 135* Imaging Results (Last 24 Hours) No results found for the last 24 hours. Assessment: Seizures likely secondary to posttraumatic subarachnoid hemorrhage triggered by anesthesia. Postop lumbar spine surgery. Acute gout Plan: Increase Keppra to 500 mg twice daily and continue indefinitely. Outpatient follow-up [facility] neurology with Dr. Braxton) 3 to 4 months. Comment: The patient is apprised of the [place] statute on driving. 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 I discussed the patients findings and my recommendations with patient and family Malcom Contreras MD 01/06/24 12:05 EST * Kenna Manley PA-C - 01/06/2024 9:13 AM EST [facility] NEUROSURGERY PROGRESS NOTE 01/06/24 Chief Complaint: Lumbar stenosis Subjective: Stable overnight. States he is having a gout flareup in his left foot. Reports significant improvement in his lower extremity symptoms. 5 Days Post-Op Objective: BP 123/81 (BP Location: Left arm, Patient Position: Lying) Pulse 69 Temp 98.1 ??F (36.7 ??C) (Oral) Resp 16 SpO2 95% Physical Exam Patient appears comfortable, resting Awake, alert and oriented x 3 Speech f/c Opens eyes spontaneously EOM intact bilaterally Pupils 3mm reactive bilaterally Face symmetric Tongue midline 5/5 strength in all 4 extremities Intake/Output Summary (Last 24 hours) at 01/06/2024 0913 Last data filed at 01/06/2024 0350 Gross per 24 hour Intake 480 ml Output 500 ml Net -20 ml Current Facility-Administered Medications: acetaminophen (TYLENOL) tablet 1,000 mg, 1,000 mg, Oral, Q6H PRN, Sophie Aponte PA-C, 1,000 mg at01/05/24 1207 allopurinol (ZYLOPRIM) tablet 100 mg, 100 mg, Oral, Daily, Hank Hitchcock MD, 100 mg at 01/05/24 0900 atorvastatin (LIPITOR) tablet 40 mg, 40 mg, Oral, Daily, Hank Hitchcock MD, 40 mg at 01/05/242036 bisacodyl (DULCOLAX) suppository 10 mg, 10 mg, Rectal, Once, Brown Rodriguez MD docusate sodium (COLACE) capsule 100 mg, 100 mg, Oral, BID PRN, Hank Hitchcock MD, 100 mg at 01/05/24 09 Enoxaparin Sodium (LOVENOX) syringe 40 mg, 40 mg, Subcutaneous, Daily, Hank Hitchcock MD, 40 mgat 01/05/242037 HYDROcodone-acetaminophen (NORCO) 5-325 MG per tablet 1 tablet, 1 tablet, Oral, Q6H PRN, Kenna Manley PA-C, 1 tablet at 01/05/24 1422 levETIRAcetam (KEPPRA) injection 250 mg, 250 mg, Intravenous, Q12H, Hank Hitchcock MD, 250 mg at 01/06/24 0532 magnesium hydroxide (MILK OF MAGNESIA) 400 MG/5ML suspension 30 mL, 30 mL, Oral, Daily PRN, Hank Hitchcock MD [DISCONTINUED] HYDROmorphone (DILAUDID) injection 0.5 mg, 0.5 mg, Intravenous, Q2H PRN, 0.5 mg at 01/03/24 0810 AND naloxone (NARCAN) injection 0.4 mg, 0.4 mg, Intravenous, Q5 Min PRN, Hank Hitchcock MD ondansetron ODT (ZOFRAN-ODT) disintegrating tablet 4 mg, 4 mg, Oral, Q6H PRN OR ondansetron (ZOFRAN) injection 4 mg, 4 mg, Intravenous, Q6H PRN, Hank Hitchcock MD pantoprazole (PROTONIX) injection 40 mg, 40 mg, Intravenous, Q AM, Valdemar Curran, RETAIL CUSTOMER SERVICE REPRESENTATIVE, 40 mg at 01/06/24 0529 polyethylene glycol (MIRALAX) packet 17 g, 17 g, Oral, Daily PRN, Hank Hitchcock MD, 17 g at 01/05/24 0901 potassium chloride (K-DUR,KLOR-CON) CR tablet 40 mEq, 40 mEq, Oral, Q4H, Brown Rodriguez MD Potassium Replacement - Follow Nurse / BPA Driven Protocol, , Does not apply, PRN, Brown Rodriguez MD predniSONE (DELTASONE) tablet 40 mg, 40 mg, Oral, Once, Kenna Manley PA-C probenecid (BENEMID) tablet 250 mg, 250 mg, Oral, Daily, Hank Hitchcock MD, 250 mg at 01/05/24 0900 sennosides-docusate (PERICOLACE) 8.6-50 MG per tablet 1 tablet, 1 tablet, Oral, Nightly PRN, Hank Hitchcock MD sodium chloride 0.9 % flush 10 mL, 10 mL, Intravenous, PRN, Hank Hitchcock MD, 10 mL at 01/06/24 0534 sodium chloride 0.9 % flush 3 mL, 3 mL, Intravenous, Q12H, Hank Hitchcock MD, 3 mL at 01/05/24 2038 sodium chloride 0.9 % infusion 40 mL, 40 mL, Intravenous, PRN, Hank Hitchcock MD sodium chloride 0.9 % infusion, 50 mL/hr, Intravenous, Continuous, Hank Hitchcock MD, Last Rate: 50 mL/hr at 01/03/24 1146, 50 mL/hr at 01/03/24 1146 Laboratory Results: Lab 01/04/24 0404 01/03/24 0423 01/02/24 0731 WBC 9.20 14.22* 12.19* HEMOGLOBIN 14.3 14.1 14.5 HEMATOCRIT 43.7 44.7 45.7 PLATELETS 152 160 165 NEUTROS ABS -- -- 11.18* IMMATURE GRANS (ABS) -- -- 0.06* LYMPHS ABS -- -- 0.61* MONOS ABS -- -- 0.33 EOS ABS -- -- 0.00 MCV 88.6 88.7 87.9 Lab 01/06/24 0507 01/05/24 0515 01/04/24 0404 01/03/24 0423 01/02/24 0731 SODIUM 135* 137 138 142 144 POTASSIUM 3.4* 3.4* 3.6 4.9 4.5 CHLORIDE 100 103 106 107 109* CO2 24.0 24.0 22.0 26.0 19.0* ANION GAP 11.0 10.0 10.0 9.0 16.0* BUN 21 20 21 20 15 CREATININE 1.11 1.10 0.96 1.13 1.38* EGFR 68.4 69.1 81.4 66.9 52.7* GLUCOSE 189* 139* 135* 102* 121* CALCIUM 8.4* 8.1* 8.3* 8.7 8.3* MAGNESIUM 1.7 1.7 1.9 2.3 2.5* PHOSPHORUS -- -- -- -- 4.8* Lab 01/03/24 0423 FIO2 28 CARBOXYHEMOGLOBIN (VENOUS) 1.2 Brief Urine Lab Results None Microbiology Results (last 10 days) No results found for the last 240 hours. Diagnostic Imaging: I personally reviewed and interpreted the new imaging Assessment and plan: This is a 78-year-old male who underwent an uneventful L3-4 laminectomy on 01/01 but experienced postoperative seizure and found to have small subarachnoid hemorrhage. Patient is neurologically intacton exam today. Patient has not had any further seizures. No new neurological symptoms. Continue Keppra 500 mg twice daily. Patient is experiencing a gout flareup therefore we have given him one- time dose of prednisone 40 mg. PT recommends inpatient rehab and case management to work on placement. Continue PT/OT. Hold Xarelto for 7 days after surgery (resume on 01/08). Please call with questions or concerns. Any copied data from previous notes included in the (1) HPI, (2) PE, (3) MDM and/or Assessment and Plan has been reviewed and accurate as of 01/06/24. Kenna Manley PA-C 01/06/24 09:13 EST Cosigned by Hank Hitchcock MD at 01/06/2024 10:02 AM EST Associated attestation - Hank Hitchcock MD - 01/06/2024 10:02 AM EST I have reviewed this documentation and agree. * Brown Rodriguez MD - 01/05/2024 11:29 AM EST Images from the original note were not included. [facility] PROGRESS NOTE Patient Name: Santo Terrell : 1945 Date of Admission: 01/01/2024 Primary Care Physician: Robinson Manley MD Subjective Subjective CC: ICU transfer HPI: No complaints. States that he's doing well. Objective Objective Vital Signs: Temp: [98 ??F (36.7 ??C)-98.4 ??F (36.9 ??C)] 98.1 ??F (36.7 ??C) Heart Rate: [70-103] 84 Resp: [18] 18 BP: (111-147)/(88-93) 111/88 Physical Exam: Constitutional: No acute distress, awake, alert, sitting up in chair HENT: NCAT, mucous membranes moist Respiratory: Clear to auscultation bilaterally, respiratory effort normal Cardiovascular: RRR, no murmurs, rubs, or gallops Gastrointestinal: Positive bowel sounds, soft, nontender, nondistended Musculoskeletal: No bilateral ankle edema Psychiatric: Appropriate affect, cooperative Neurologic: Oriented x 3, strength symmetric in all extremities, Cranial Nerves grossly intact to confrontation, speech clear Skin: No rashes Results Reviewed: LAB RESULTS: Lab 01/04/24 0404 01/03/24 0423 01/02/24 0731 WBC 9.20 14.22* 12.19* HEMOGLOBIN 14.3 14.1 14.5 HEMATOCRIT 43.7 44.7 45.7 PLATELETS 152 160 165 NEUTROS ABS -- -- 11.18* IMMATURE GRANS (ABS) -- -- 0.06* LYMPHS ABS -- -- 0.61* MONOS ABS -- -- 0.33 EOS ABS -- -- 0.00 MCV 88.6 88.7 87.9 Lab 01/05/24 0515 01/04/24 0404 01/03/24 0423 01/02/24 0731 01/01/24 1539 SODIUM 137 138 142 144 140 POTASSIUM 3.4* 3.6 4.9 4.5 4.0 CHLORIDE 103 106 107 109* 103 CO2 24.0 22.0 26.0 19.0* 13.0* ANION GAP 10.0 10.0 9.0 16.0* 24.0* BUN 20 21 20 15 19 CREATININE 1.10 0.96 1.13 1.38* 1.43* EGFR 69.1 81.4 66.9 52.7* 50.5* GLUCOSE 139* 135* 102* 121* 202* CALCIUM 8.1* 8.3* 8.7 8.3* 8.6 MAGNESIUM 1.7 1.9 2.3 2.5* -- PHOSPHORUS -- -- -- 4.8* -- Lab 01/03/24 0423 FIO2 28 CARBOXYHEMOGLOBIN (VENOUS) 1.2 Brief Urine Lab Results None Microbiology Results Abnormal None No radiology results from the last 24 hrs Results for orders placed in visit on 12/10/23 Adult Transthoracic Echo Complete W/ Cont if Necessary Per Protocol Interpretation Summary ??? Left ventricular systolic function is normal. Calculated left ventricular EF = 58.5% ??? Left ventricular wall thickness is consistent with mild concentric hypertrophy. ??? Moderate mitral valve regurgitation is present. ? ? Estimated right ventricular systolic pressure from tricuspid regurgitation is normal (<35 mmHg). Current medications: Scheduled Meds:allopurinol, 100 mg, Oral, Daily atorvastatin, 40 mg, Oral, Daily enoxaparin, 40 mg, Subcutaneous, Daily levETIRAcetam, 250 mg, Intravenous, Q12H pantoprazole, 40 mg, Intravenous, Q AM probenecid, 250 mg, Oral, Daily sodium chloride, 3 mL, Intravenous, Q12H Continuous Infusions:sodium chloride, 50 mL/hr, Last Rate: 50 mL/hr (01/03/24 1146) PRN Meds:.??? acetaminophen ??? docusate sodium ??? HYDROcodone-acetaminophen ??? magnesium hydroxide ??? [DISCONTINUED] HYDROmorphone AND naloxone ??? ondansetron ODT OR ondansetron ??? polyethylene glycol ??? senna-docusate sodium ??? sodium chloride ??? sodium chloride Assessment & Plan Assessment & Plan Active Hospital Problems Diagnosis POA ??? 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 Lumbar stenosis [M48.061] Yes ??? Seizure [R56.9] Yes Resolved Hospital Problems Diagnosis Date Resolved POA ??? TUNDE (acute kidney injury) [N17.9] 01/03/2024 Unknown Brief Hospital Course to date: Santo Terrell is a 78 y.o. male s/p L3-[address] Hitchcock with a post op seizures in PACU and then again during transfer to the ICU. Neurology has johnny following and loaded patient with keppra. CT head showed scattered SAH in the right parietal sulci Lumbar Spinal Stenosis --s/p L3/L4 Laminectomy --PT/OT recs IRF New Onset Seizure 2nd to Traumatic SAH while on Eliquis --neuro followed. Recs to stay off eliquis until cleared by NS and continue keppra 500mg BID x 3mos, no Driving x 90 days, f/u neurology clinic Scattered SAH Right Parietal Sulca --holding eliquis --MRI brain showed scattered SAH with multiple cerebral cortical sulci, right greater than left --no aneurysm on MRA Afib --holding eliquis d/t above HTN HL CAD Expected Discharge Location and Transportation: PT recs rehab Expected Discharge Expected Discharge Date: 01/08/2024; Expected Discharge Time: DVT prophylaxis: Medical and mechanical DVT prophylaxis orders are present. AM-PAC 6 Clicks Score (PT): 18 (01/05/24 1129) CODE STATUS: Code Status and Medical Interventions: Ordered at: 01/01/24 3836 Medical Intervention Limits: NO artificial nutrition NO intubation (DNI) Code Status (Patient has no pulse and is not breathing): No CPR (Do Not Attempt to Resuscitate) Medical Interventions (Patient has pulse or is breathing): Limited Support Brown Rodriguez MD 01/05/24 * Sophie Aponte PA-C - 01/05/2024 9:46 AM EST [facility] NEUROSURGERY PROGRESS NOTE 01/05/24 Chief Complaint: Lumbar stenosis, Seizure, S/p day 3 L3-4 Laminectomy (Dr. Hitchcock), SAH Subjective: 4 Days Post-Op Objective: No events overnight patient remains stable with no new seizure activity. He is sitting up in the recliner at the bedside this morning. States that he feels like he is getting stronger and participated with physical therapy yesterday. Did experience a headache yesterday evening that was relieved with Tylenol. Patient is going to see physical therapy today. No new neurological symptoms. BP 111/88 (BP Location: Left arm, Patient Position: Lying) Pulse 84 Temp 98.1 ??F (36.7 ??C) (Oral) Resp 18 SpO2 95% Physical Exam Patient appears comfortable, resting Awake, alert and oriented x 3 Speech functional and intact Opens eyes spontaneously EOM intact bilaterally Pupils 3mm reactive bilaterally Face symmetric Tongue midline Motor exam shows good strength in all 4 extremities Normal sensation to light touch in all 4 extremities Gait not assessed Incision dry and intact. Intake/Output Summary (Last 24 hours) at 01/05/2024 0946 Last data filed at 01/05/2024 0553 Gross per 24 hour Intake -- Output 525 ml Net -525 ml Current Facility-Administered Medications: acetaminophen (TYLENOL) tablet 1,000 mg, 1,000 mg, Oral, Q6H PRN, Sophie Aponte PA-C, 1,000 mg at01/04/24 175 allopurinol (ZYLOPRIM) tablet 100 mg, 100 mg, Oral, Daily, Hank Hitchcock MD, 100 mg at 01/05/24 0900 atorvastatin (LIPITOR) tablet 40 mg, 40 mg, Oral, Daily, Hank Hitchcock MD, 40 mg at 01/04/242131 docusate sodium (COLACE) capsule 100 mg, 100 mg, Oral, BID PRN, Hank Hitchcock MD, 100 mg at 01/05/24 0900 Enoxaparin Sodium (LOVENOX) syringe 40 mg, 40 mg, Subcutaneous, Daily, Hank Hitchcock MD, 40 mgat 01/04/242131 HYDROcodone-acetaminophen (NORCO) 5-325 MG per tablet 1 tablet, 1 tablet, Oral, Q6H PRN, Kenna Manley PA-C levETIRAcetam (KEPPRA) injection 250 mg, 250 mg, Intravenous, Q12H, Malcom Contreras MD, 250 mg at 01/05/24 0459 magnesium hydroxide (MILK OF MAGNESIA) 400 MG/5ML suspension 30 mL, 30 mL, Oral, Daily PRN, Hank Hitchcock MD [DISCONTINUED] HYDROmorphone (DILAUDID) injection 0.5 mg, 0.5 mg, Intravenous, Q2H PRN, 0.5 mg at 01/03/24 0810 AND naloxone (NARCAN) injection 0.4 mg, 0.4 mg, Intravenous, Q5 Min PRN, Hank Hitchcock MD ondansetron ODT (ZOFRAN-ODT) disintegrating tablet 4 mg, 4 mg, Oral, Q6H PRN OR ondansetron (ZOFRAN) injection 4 mg, 4 mg, Intravenous, Q6H PRN, Hank Hitchcock MD pantoprazole (PROTONIX) injection 40 mg, 40 mg, Intravenous, Q AM, Valdemar Curran, RETAIL CUSTOMER SERVICE REPRESENTATIVE, 40 mg at 01/05/24 0459 polyethylene glycol (MIRALAX) packet 17 g, 17 g, Oral, Daily PRN, Hank Hitchcock MD, 17 g at 01/05/24 0901 probenecid (BENEMID) tablet 250 mg, 250 mg, Oral, Daily, Hank Hitchcock MD, 250 mg at 01/05/24 0900 sennosides-docusate (PERICOLACE) 8.6-50 MG per tablet 1 tablet, 1 tablet, Oral, Nightly PRN, Hank Hitchcock MD sodium chloride 0.9 % flush 10 mL, 10 mL, Intravenous, PRN, Hank Hitchcock MD, 10 mL at 01/01/24 2040 sodium chloride 0.9 % flush 3 mL, 3 mL, Intravenous, Q12H, Hank Hitchcock MD, 3 mL at 01/05/24 0901 sodium chloride 0.9 % infusion 40 mL, 40 mL, Intravenous, PRN, Hank Hitchcock MD sodium chloride 0.9 % infusion, 50 mL/hr, Intravenous, Continuous, Hank Hitchcock MD, Last Rate: 50 mL/hr at 01/03/24 1146, 50 mL/hr at 01/03/24 1146 Laboratory Results: Lab 01/04/24 0404 01/03/24 0423 01/02/24 0731 WBC 9.20 14.22* 12.19* HEMOGLOBIN 14.3 14.1 14.5 HEMATOCRIT 43.7 44.7 45.7 PLATELETS 152 160 165 NEUTROS ABS -- -- 11.18* IMMATURE GRANS (ABS) -- -- 0.06* LYMPHS ABS -- -- 0.61* MONOS ABS -- -- 0.33 EOS ABS -- -- 0.00 MCV 88.6 88.7 87.9 Lab 01/05/24 0515 01/04/24 0404 01/03/24 0423 01/02/24 0731 01/01/24 1539 SODIUM 137 138 142 144 140 POTASSIUM 3.4* 3.6 4.9 4.5 4.0 CHLORIDE 103 106 107 109* 103 CO2 24.0 22.0 26.0 19.0* 13.0* ANION GAP 10.0 10.0 9.0 16.0* 24.0* BUN 20 21 20 15 19 CREATININE 1.10 0.96 1.13 1.38* 1.43* EGFR 69.1 81.4 66.9 52.7* 50.5* GLUCOSE 139* 135* 102* 121* 202* CALCIUM 8.1* 8.3* 8.7 8.3* 8.6 MAGNESIUM 1.7 1.9 2.3 2.5* -- PHOSPHORUS -- -- -- 4.8* -- Lab 01/03/24 0423 FIO2 28 CARBOXYHEMOGLOBIN (VENOUS) 1.2 Brief Urine Lab Results None Microbiology Results (last 10 days) No results found for the last 240 hours. Diagnostic Imaging: No new imaging for my review. Assessment and plan: S/p L3-4 Laminectomy on 01/01 (Dr. Hitchcock) Traumatic SAH (patient was chronically anticoagulated. Anticoagulation discontinued.) Seizure (Patient tolerating Keppra well, no new seizure activity) History of Falls Plan: Continue Keppra per neurology recommendations and 7-day hold on Xarelto. Physical therapy and Occupational Therapy recommend inpatient rehabilitation as patient is at high fall risk and unable to mobilize safely on his own at this time. From a medical standpoint feel that he is ready for discharge. Any copied data from previous notes included in the (1) HPI, (2) PE, (3) MDM and/or Assessment and Plan has been reviewed and accurate as of 01/05/24. Sophie Aponte PA-C 01/05/24 09:46 EST Cosigned by Bobby Díaz MD at 01/08/2024 10:20 AM EST Associated attestation - Bobby Díaz MD - 01/08/2024 10:20 AM EST I have reviewed this documentation and agree. * Brown Rodriguez MD - 01/04/2024 12:09 PM EST Images from the original note were not included. [facility] PROGRESS NOTE Patient Name: Santo Terrell : 1945 Date of Admission: 01/01/2024 Primary Care Physician: Robinson Manley MD Subjective Subjective CC: ICU transfer HPI: States that he feels good. Reports that he walked to the BR, was wobbly but ok. Says that he didn't want breakfast but has been eating ok. Objective Objective Vital Signs: Temp: [97.4 ??F (36.3 ??C)-98.8 ??F (37.1 ??C)] 98 ??F (36.7 ??C) Heart Rate: [64-111] 73 Resp: [16-18] 18 BP: (111-132)/(65-89) 132/89 Physical Exam: Constitutional: No acute distress, awake, alert HENT: NCAT, mucous membranes moist Respiratory: Clear to auscultation bilaterally, respiratory effort normal Cardiovascular: RRR, no murmurs, rubs, or gallops Gastrointestinal: Positive bowel sounds, soft, nontender, nondistended Musculoskeletal: No bilateral ankle edema Psychiatric: Appropriate affect, cooperative Neurologic: Oriented x 3, strength symmetric in all extremities, Cranial Nerves grossly intact to confrontation, speech clear Skin: No rashes Results Reviewed: LAB RESULTS: Lab 01/04/2440301/03/243 01/02/24 0731 WBC 9.20 14.22* 12.19* HEMOGLOBIN 14.3 14.1 14.5 HEMATOCRIT 43.7 44.7 45.7 PLATELETS 152 160 165 NEUTROS ABS -- -- 11.18* IMMATURE GRANS (ABS) -- -- 0.06* LYMPHS ABS -- -- 0.61* MONOS ABS -- -- 0.33 EOS ABS -- -- 0.00 MCV 88.6 88.7 87.9 Lab 01/04/2440301/03/2442201/02/24 0731 01/01/24 1539 SODIUM 138 142 144 140 POTASSIUM 3.6 4.9 4.5 4.0 CHLORIDE 106 107 109* 103 CO2 22.0 26.0 19.0* 13.0* ANION GAP 10.0 9.0 16.0* 24.0* BUN 21 20 15 19 CREATININE 0.96 1.13 1.38* 1.43* EGFR 81.4 66.9 52.7* 50.5* GLUCOSE 135* 102* 121* 202* CALCIUM 8.3* 8.7 8.3* 8.6 MAGNESIUM 1.9 2.3 2.5* -- PHOSPHORUS -- -- 4.8* -- Lab 01/03/24 0423 FIO2 28 CARBOXYHEMOGLOBIN (VENOUS) 1.2 Brief Urine Lab Results None Microbiology Results Abnormal None MRI Angiogram Head Without Contrast Result Date: 01/02/2024 MRI ANGIOGRAM HEAD WO CONTRAST, MRI BRAIN WO CONTRAST Date of Exam: 01/02/2024 2:00 PM EST Indication: Stroke, follow up. Comparison: Noncontrast head CT and head CTA from the same date. Technique: Routine 3-D xhvw-of-qrwfut gradient echo imaging was obtained of the head without contrast administration. FINDINGS: Foci of T2/FLAIR signal hyperintensity are seen within the bilateral hemispheric white matter. There is scattered FLAIR signal hyperintensity within the right greater than left cerebralcortical sulci, within the prepontine cistern, and within the interpeduncular fossa, compatible with known subarachnoid hemorrhage. Probable intraventricular hemorrhage within the occipital horns of the lateral ventricles. No hydrocephalus is seen. Midline structures appear unremarkable. No significant mass effect or midline shift is seen. Diffusion-weighted sequences demonstrate no acute infarct.The visualized intracranial flow-voids appear unremarkable. Right mastoid effusion is present. Paranasal sinuses appear unremarkable. The orbits, globes, retrobulbar soft tissues appear unremarkable. The visualized superficial soft tissues and cervical spine demonstrate no significant abnormality. MR angiographic images are limited due to motion artifact. Nonvisualized intracranial portion of theright vertebral artery as was noted on the accompanying CTA examination. No intracranial aneurysm is identified. Middle cerebral, anterior cerebral, and posterior cerebral arteries appear patent without significant stenosis or abrupt cut off. There is origin of the left posterior cerebral artery. Impression: 1.Findings compatible with scattered subarachnoid hemorrhage within multiple cerebral cortical sulci, right greater than left. Probable hemorrhage within the prepontine cistern, interpeduncular fossa, and within the occipital horns of the lateral ventricles. No hydrocephalus is seen. 2.No diffusion restriction is identified to suggest acute infarct. 3.Findings compatible with chronic microvascular ischemic change. 4.MR angiographic images are limited due to motion artifact. Nonvisualized intracranial portion of the right vertebral artery as was noted on the accompanying CTA examination. No intracranial aneurysm is identified. 5.Right mastoid effusion. Electronically Signed: Hoang Rdz MD 01/02/2024 3:28 PM EST Workstation ID: [id number] MRI Brain Without Contrast Result Date: 01/02/2024 MRI ANGIOGRAM HEAD WO CONTRAST, MRI BRAIN WO CONTRAST Date of Exam: 01/02/2024 2:00 PM EST Indication: Stroke, follow up. Comparison: Noncontrast head CT and head CTA from the same date. Technique: Routine 3-D ukob-lc-fruncd gradient echo imaging was obtained of the head without contrast administration. FINDINGS: Foci of T2/FLAIR signal hyperintensity are seen within the bilateral hemispheric white matter. There is scattered FLAIR signal hyperintensity within the right greater than left cerebralcortical sulci, within the prepontine cistern, and within the interpeduncular fossa, compatible with known subarachnoid hemorrhage. Probable intraventricular hemorrhage within the occipital horns of the lateral ventricles. No hydrocephalus is seen. Midline structures appear unremarkable. No significant mass effect or midline shift is seen. Diffusion-weighted sequences demonstrate no acute infarct.The visualized intracranial flow-voids appear unremarkable. Right mastoid effusion is present. Paranasal sinuses appear unremarkable. The orbits, globes, retrobulbar soft tissues appear unremarkable. The visualized superficial soft tissues and cervical spine demonstrate no significant abnormality. MR angiographic images are limited due to motion artifact. Nonvisualized intracranial portion of theright vertebral artery as was noted on the accompanying CTA examination. No intracranial aneurysm is identified. Middle cerebral, anterior cerebral, and posterior cerebral arteries appear patent without significant stenosis or abrupt cut off. There is origin of the left posterior cerebral artery. Impression: 1.Findings compatible with scattered subarachnoid hemorrhage within multiple cerebral cortical sulci, right greater than left. Probable hemorrhage within the prepontine cistern, interpeduncular fossa, and within the occipital horns of the lateral ventricles. No hydrocephalus is seen. 2.No diffusion restriction is identified to suggest acute infarct. 3.Findings compatible with chronic microvascular ischemic change. 4.MR angiographic images are limited due to motion artifact. Nonvisualized intracranial portion of the right vertebral artery as was noted on the accompanying CTA examination. No intracranial aneurysm is identified. 5.Right mastoid effusion. Electronically Signed: Hoang Rdz MD 01/02/2024 3:28 PM EST Workstation ID: [id number] Results for orders placed in visit on 12/10/23 Adult Transthoracic Echo Complete W/ Cont if Necessary Per Protocol Interpretation Summary ??? Left ventricular systolic function is normal. Calculated left ventricular EF = 58.5% ??? Left ventricular wall thickness is consistent with mild concentric hypertrophy. ??? Moderate mitral valve regurgitation is present. ? ? Estimated right ventricular systolic pressure from tricuspid regurgitation is normal (<35 mmHg). Current medications: Scheduled Meds:allopurinol, 100 mg, Oral, Daily atorvastatin, 40 mg, Oral, Daily enoxaparin, 40 mg, Subcutaneous, Daily levETIRAcetam, 250 mg, Intravenous, Q12H pantoprazole, 40 mg, Intravenous, Q AM probenecid, 250 mg, Oral, Daily sodium chloride, 3 mL, Intravenous, Q12H Continuous Infusions:sodium chloride, 50 mL/hr, Last Rate: 50 mL/hr (01/03/24 1146) PRN Meds:.??? docusate sodium ??? HYDROcodone-acetaminophen ??? magnesium hydroxide ??? [DISCONTINUED] HYDROmorphone AND naloxone ??? ondansetron ODT OR ondansetron ??? polyethylene glycol ??? senna-docusate sodium ??? sodium chloride ??? sodium chloride Assessment & Plan Assessment & Plan Active Hospital Problems Diagnosis POA ??? 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 Lumbar stenosis [M48.061] Yes ??? Seizure [R56.9] Yes Resolved Hospital Problems Diagnosis Date Resolved POA ??? TUNDE (acute kidney injury) [N17.9] 01/03/2024 Unknown Brief Hospital Course to date: Santo Terrell is a 78 y.o. male s/p L3-[address] Hitchcock with a post op seizures in PACU and then again during transfer to the ICU. Neurology has johnny following and loaded patient with keppra. CT head showed scattered SAH in the right parietal sulci Lumbar Spinal Stenosis --s/p L3/L4 Laminectomy --PT/OT recs IRF New Onset Seizure 2nd to Traumatic SAH while on Eliquis --neuro followed. Recs to stay off eliquis until cleared by NS and continue keppra 500mg BID x 3mos, no Driving x 90 days, f/u neurology clinic Scattered SAH Right Parietal Sulca --holding eliquis --MRI brain showed scattered SAH with multiple cerebral cortical sulci, right greater than left --no aneurysm on MRA Afib --holding eliquis d/t above HTN HL CAD Expected Discharge Location and Transportation: PT recs rehab Expected Discharge Expected Discharge Date: 01/08/2024; Expected Discharge Time: DVT prophylaxis: Medical and mechanical DVT prophylaxis orders are present. AM-PAC 6 Clicks Score (PT): 17 (01/04/24 1118) CODE STATUS: Code Status and Medical Interventions: Ordered at: 01/01/24 5886 Medical Intervention Limits: NO artificial nutrition NO intubation (DNI) Code Status (Patient has no pulse and is not breathing): No CPR (Do Not Attempt to Resuscitate) Medical Interventions (Patient has pulse or is breathing): Limited Support Brown Rodriguez MD 01/04/24 * Sophie Aponte PA-C - 01/04/2024 11:50 AM EST [facility] NEUROSURGERY PROGRESS NOTE 01/04/24 Chief Complaint: Lumbar stenosis, Seizure, S/p day 3 L3-4 Laminectomy (Dr. Hitchcock), SAH Subjective: No events overnight. Patient is sitting in recliner this morning and appears to be in no acute distress. He just finished PT this morning. No new neurologic symptoms. 3 Days Post-Op Objective: BP 117/65 (BP Location: Right arm, Patient Position: Lying) Pulse 69 Temp 98.3 ??F (36.8 ??C) (Oral) Resp 18 SpO2 94% Physical Exam Patient appears comfortable, resting, sitting up in recliner at the bedside. He has just returned from PT. Awake, alert and oriented x 3 Speech f/c Opens eyes spontaneously EOM intact bilaterally Pupils 3mm reactive bilaterally Face symmetric Tongue midline Motor exam shows 5/5 strength in all 4 extremities Normal sensation to light touch in all 4 extremities No Reza's or clonus bilaterally No pronator drift or dysmetria Gait not assessed Incision dry and intact. No drainage. Intake/Output Summary (Last 24 hours) at 01/04/2024 1151 Last data filed at 01/04/2024 0430 Gross per 24 hour Intake 540 ml Output 1055 ml Net -515 ml Current Facility-Administered Medications: allopurinol (ZYLOPRIM) tablet 100 mg, 100 mg, Oral, Daily, Hank Hitchcock MD, 100 mg at 01/04/24 0932 atorvastatin (LIPITOR) tablet 40 mg, 40 mg, Oral, Daily, Hank Hitchcock MD, 40 mg at 01/03/242042 docusate sodium (COLACE) capsule 100 mg, 100 mg, Oral, BID PRN, Hank Hitchcock MD Enoxaparin Sodium (LOVENOX) syringe 40 mg, 40 mg, Subcutaneous, Daily, Hank Hitchcock MD, 40 mgat 01/03/242042 HYDROcodone-acetaminophen (NORCO) 5-325 MG per tablet 1 tablet, 1 tablet, Oral, Q6H PRN, Kenna Manley PA-C levETIRAcetam (KEPPRA) injection 250 mg, 250 mg, Intravenous, Q12H, Malcom Contreras MD, 250 mg at 01/04/24 0430 magnesium hydroxide (MILK OF MAGNESIA) 400 MG/5ML suspension 30 mL, 30 mL, Oral, Daily PRN, Hank Hitchcock MD [DISCONTINUED] HYDROmorphone (DILAUDID) injection 0.5 mg, 0.5 mg, Intravenous, Q2H PRN, 0.5 mg at 01/03/24 0810 AND naloxone (NARCAN) injection 0.4 mg, 0.4 mg, Intravenous, Q5 Min PRN, Hank Hitchcock MD ondansetron ODT (ZOFRAN-ODT) disintegrating tablet 4 mg, 4 mg, Oral, Q6H PRN OR ondansetron (ZOFRAN) injection 4 mg, 4 mg, Intravenous, Q6H PRN, Hank Hitchcock MD pantoprazole (PROTONIX) injection 40 mg, 40 mg, Intravenous, Q AM, Valdemar Curran, RETAIL CUSTOMER SERVICE REPRESENTATIVE, 40 mg at 01/04/24 0430 polyethylene glycol (MIRALAX) packet 17 g, 17 g, Oral, Daily PRN, Hank Hitchcock MD probenecid (BENEMID) tablet 250 mg, 250 mg, Oral, Daily, Hank Hitchcock MD, 250 mg at 01/04/24 0932 sennosides-docusate (PERICOLACE) 8.6-50 MG per tablet 1 tablet, 1 tablet, Oral, Nightly PRN, Hank Hitchcock MD sodium chloride 0.9 % flush 10 mL, 10 mL, Intravenous, PRN, Hank Hitchcock MD, 10 mL at 01/01/24 2040 sodium chloride 0.9 % flush 3 mL, 3 mL, Intravenous, Q12H, Hank Hitchcock MD, 3 mL at 01/04/24 0933 sodium chloride 0.9 % infusion 40 mL, 40 mL, Intravenous, PRN, Hank Hitchcock MD sodium chloride 0.9 % infusion, 50 mL/hr, Intravenous, Continuous, Hank Hitchcock MD, Last Rate: 50 mL/hr at 01/03/24 1146, 50 mL/hr at 01/03/24 1146 Laboratory Results: Lab 01/04/24 0404 01/03/24 0423 01/02/24 0731 WBC 9.20 14.22* 12.19* HEMOGLOBIN 14.3 14.1 14.5 HEMATOCRIT 43.7 44.7 45.7 PLATELETS 152 160 165 NEUTROS ABS -- -- 11.18* IMMATURE GRANS (ABS) -- -- 0.06* LYMPHS ABS -- -- 0.61* MONOS ABS -- -- 0.33 EOS ABS -- -- 0.00 MCV 88.6 88.7 87.9 Lab 01/04/24 0404 01/03/24 0423 01/02/24 0731 01/01/24 1539 SODIUM 138 142 144 140 POTASSIUM 3.6 4.9 4.5 4.0 CHLORIDE 106 107 109* 103 CO2 22.0 26.0 19.0* 13.0* ANION GAP 10.0 9.0 16.0* 24.0* BUN 21 20 15 19 CREATININE 0.96 1.13 1.38* 1.43* EGFR 81.4 66.9 52.7* 50.5* GLUCOSE 135* 102* 121* 202* CALCIUM 8.3* 8.7 8.3* 8.6 MAGNESIUM 1.9 2.3 2.5* -- PHOSPHORUS -- -- 4.8* -- Lab 01/03/24 0423 FIO2 28 CARBOXYHEMOGLOBIN (VENOUS) 1.2 Brief Urine Lab Results None Microbiology Results (last 10 days) No results found for the last 240 hours. Assessment and plan: Santo Terrell is a 78 year old male who underwent uncomplicated L3-4 laminectomy on 01/[address] Hitchcock. He experienced a post-op seizure. Scans from yesterday revealed traumatic SAH. Patient wasanticoagulated with Xarelto but has been stopped. Patient is improving overall and appears to be well. No new neurological symptoms. He is on Keppra and followed by neurology. Patient will most likely need inpatient rehabilitation. PT notes today reveal significant improvement in pain control and mobility today. Incision looks good today. S/p L3-4 Laminectomy on 01/01 (Dr. Hitchcock) Traumatic SAH (patient was chronically anticoagulated. Anticoagulation discontinued.) Seizure (Patient tolerating Keppra well, no new seizure activity) History of Falls Plan: -Continue Keppra per neurology recommendations. -Hold Xarelto x7 days after surgery -Continue PT/OT. -Will most likely require inpatient rehabilitation upon discharge. Any copied data from previous notes included in the (1) HPI, (2) PE, (3) MDM and/or Assessment and Plan has been reviewed and accurate as of 01/04/24. Sophie Aponte PA-C 01/04/24 11:51 EST Cosigned by Bobby Díaz MD at 01/08/2024 10:20 AM EST Associated attestation - Bobby Díaz MD - 01/08/2024 10:20 AM EST I have reviewed this documentation and agree. * Eladio Wakefield MD - 01/03/2024 1:26 PM EST Neurology Note Patient: Santo Terrell DATE OF : 1945 REFERRING PHYSICIAN: Hank Hitchcock MD CHIEF COMPLAINT: Seizure HISTORY OF PRESENT ILLNESS: The patient reports feeling okay, denies headaches or seizures, vitals stable. He now reports that he did flip over on a recliner shortly prior to admission for back surgery. Past Medical History: Past Medical History: Diagnosis Date Allergies PHOLCODINE TRIPLE ANTIBIOTIC Chronic atrial fibrillation Chronic atrial fibrillation, unspecified CKD (chronic kidney disease), stage III DDD (degenerative disc disease), lumbar Full dentures GERD without esophagitis Hypercholesterolemia Hypertension Mitral regurgitation 07/04/2022 MODERATE Nonrheumatic mitral (valve) insufficiency Paroxysmal atrial fibrillation SOB (shortness of breath) Wears glasses Past Surgical History: Past Surgical History: Procedure Laterality Date APPENDECTOMY BACK SURGERY LUMBAR DISC, UNSURE OF EXACT TYPE CHOLECYSTECTOMY LUMBAR LAMINECTOMY DISCECTOMY DECOMPRESSION N/A 01/01/2024 Procedure: LUMBAR LAMINECTOMY L3-4; Surgeon: Hank Hitchcock MD; Location: [facility] 234 BEDS AT [facility]; Service: Neurosurgery; Laterality: N/A; SHOULDER ARTHROSCOPY Right TEETH EXTRACTION Social History: Social History Socioeconomic History Marital status: Single Tobacco Use Smoking status: Former Types: Cigarettes Quit date: 1973 Years since quittin.1 Passive exposure: Past Smokeless tobacco: Never Vaping Use Vaping Use: Never used Substance and Sexual Activity Alcohol use: Yes Comment: BEER PER WK Drug use: Never Sexual activity: Defer Family History: Family History Problem Relation Age of Onset Arthritis Mother Stroke Father Diabetes Sister Cancer Brother Medications Prior to Admission: Prior to Admission medications Medication Sig Start Date End Date Taking? Authorizing Provider allopurinol (ZYLOPRIM) 100 MG tablet Take 1 tablet by mouth Daily. 05/29/23 Yes Hubert Roland MD Livalo 4 MG tablet Take 1 tablet by mouth Every Night. 07/09/23 Yes Carleen Dave APRN omeprazole (priLOSEC) 20 MG capsule Take 1 capsule by mouth Daily. Yes ProviderHubert MD probenecid (BENEMID) 500 MG tablet Take 0.5 tablets by mouth Daily. 1/2 PILL QD Yes Hubert Roland MD TARRanjan PELLETIER PO Take 1 tablet by mouth Daily. Yes ProviderHubert MD Xarelto 20 MG tablet Take 1 tablet by mouth Daily. Patient taking differently: Take 1 tablet by mouth Daily. WILL HOLD 3 DAYS PRIOR TO SURGERY PER DR HITCHCOCK 07/09/23 Carleen Dave APRN Allergies: Triple antibiotic w/hydrocortisone [tctmbwe-atmzxzul-ovgmvqnns-hc] and Codeine Review of system Review of Systems Musculoskeletal: Positive for gait problem. All other systems reviewed and are negative. Vitals: 01/03/24 1230 BP: 120/85 Pulse: 68 Resp: 16 Temp: 97.4 ??F (36.3 ??C) SpO2: 100% Physical exam Physical Exam Cardiovascular: Rate and Rhythm: Normal rate and regular rhythm. Pulmonary: Effort: Pulmonary effort is normal. Neurological: General: No focal deficit present. Mental Status: He is alert and oriented to person, place, and time. Comments: Speech clear, VFF, no facial droop, moves arms well, legs w/o gravity. Lab Results Component Value Date WBC 14.22 (H) 01/03/2024 HGB 14.1 01/03/2024 HCT 44.7 01/03/2024 MCV 88.7 01/03/2024 PLT 160 01/03/2024 Lab Results Component Value Date GLUCOSE 102 (H) 01/03/2024 BUN 20 01/03/2024 CREATININE 1.13 01/03/2024 BCR 17.7 01/03/2024 CO2 26.0 01/03/2024 CALCIUM 8.7 01/03/2024 Radiological Studies: MRI Angiogram Head Without Contrast Result Date: 01/02/2024 MRI ANGIOGRAM HEAD WO CONTRAST, MRI BRAIN WO CONTRAST Date of Exam: 01/02/2024 2:00 PM EST Indication: Stroke, follow up. Comparison: Noncontrast head CT and head CTA from the same date. Technique: Routine 3-D kukl-sv-cwfszh gradient echo imaging was obtained of the head without contrast administration. FINDINGS: Foci of T2/FLAIR signal hyperintensity are seen within the bilateral hemispheric white matter. There is scattered FLAIR signal hyperintensity within the right greater than left cerebralcortical sulci, within the prepontine cistern, and within the interpeduncular fossa, compatible with known subarachnoid hemorrhage. Probable intraventricular hemorrhage within the occipital horns of the lateral ventricles. No hydrocephalus is seen. Midline structures appear unremarkable. No significant mass effect or midline shift is seen. Diffusion-weighted sequences demonstrate no acute infarct.The visualized intracranial flow-voids appear unremarkable. Right mastoid effusion is present. Paranasal sinuses appear unremarkable. The orbits, globes, retrobulbar soft tissues appear unremarkable. The visualized superficial soft tissues and cervical spine demonstrate no significant abnormality. MR angiographic images are limited due to motion artifact. Nonvisualized intracranial portion of theright vertebral artery as was noted on the accompanying CTA examination. No intracranial aneurysm is identified. Middle cerebral, anterior cerebral, and posterior cerebral arteries appear patent without significant stenosis or abrupt cut off. There is origin of the left posterior cerebral artery. 1.Findings compatible with scattered subarachnoid hemorrhage within multiple cerebral cortical sulci, right greater than left. Probable hemorrhage within the prepontine cistern, interpeduncular fossa, and within the occipital horns of the lateral ventricles. No hydrocephalus is seen. 2.No diffusionrestriction is identified to suggest acute infarct. 3.Findings compatible with chronic microvascular ischemic change. 4.MR angiographic images are limited due to motion artifact. Nonvisualized intracranial portion of the right vertebral artery as was noted on the accompanying CTA examination. No intracranial aneurysm is identified. 5.Right mastoid effusion. Electronically Signed: Hoang Rdz MD 01/02/2024 3:28 PM EST Workstation ID: [id number] MRI Brain Without Contrast Result Date: 01/02/2024 MRI ANGIOGRAM HEAD WO CONTRAST, MRI BRAIN WO CONTRAST Date of Exam: 01/02/2024 2:00 PM EST Indication: Stroke, follow up. Comparison: Noncontrast head CT and head CTA from the same date. Technique: Routine 3-D wwzv-yc-uprlxh gradient echo imaging was obtained of the head without contrast administration. FINDINGS: Foci of T2/FLAIR signal hyperintensity are seen within the bilateral hemispheric white matter. There is scattered FLAIR signal hyperintensity within the right greater than left cerebralcortical sulci, within the prepontine cistern, and within the interpeduncular fossa, compatible with known subarachnoid hemorrhage. Probable intraventricular hemorrhage within the occipital horns of the lateral ventricles. No hydrocephalus is seen. Midline structures appear unremarkable. No significant mass effect or midline shift is seen. Diffusion-weighted sequences demonstrate no acute infarct.The visualized intracranial flow-voids appear unremarkable. Right mastoid effusion is present. Paranasal sinuses appear unremarkable. The orbits, globes, retrobulbar soft tissues appear unremarkable. The visualized superficial soft tissues and cervical spine demonstrate no significant abnormality. MR angiographic images are limited due to motion artifact. Nonvisualized intracranial portion of theright vertebral artery as was noted on the accompanying CTA examination. No intracranial aneurysm is identified. Middle cerebral, anterior cerebral, and posterior cerebral arteries appear patent without significant stenosis or abrupt cut off. There is origin of the left posterior cerebral artery. 1.Findings compatible with scattered subarachnoid hemorrhage within multiple cerebral cortical sulci, right greater than left. Probable hemorrhage within the prepontine cistern, interpeduncular fossa, and within the occipital horns of the lateral ventricles. No hydrocephalus is seen. 2.No diffusionrestriction is identified to suggest acute infarct. 3.Findings compatible with chronic microvascular ischemic change. 4.MR angiographic images are limited due to motion artifact. Nonvisualized intracranial portion of the right vertebral artery as was noted on the accompanying CTA examination. No intracranial aneurysm is identified. 5.Right mastoid effusion. Electronically Signed: Hoang Rdz MD 01/02/2024 3:28 PM EST Workstation ID: [id number] CT Angiogram Head Result Date: 01/02/2024 CT ANGIOGRAM HEAD Date of Exam: 01/02/2024 3:00 AM EST Indication: Seizures. Comparison: None available. Technique: CTA of the head was performed after the uneventful intravenous administration of 80 mL Isovue-370. Reconstructed coronal and sagittal images were also obtained. In addition, a 3-D volume rendered image was created for interpretation. Automated exposure control and iterative reconstruction methods were used. Findings: The carotid siphons demonstrate no significant atherosclerotic narrowing. The anterior cerebral arteries are normal in course and caliber bilaterally. The right middle cerebral artery demonstrates no evidence of flow-limiting stenosis, large vessel occlusion or aneurysm. The left middle cerebral artery is similarly normal in course and caliber. The right vertebral artery is not well visualized, appearing occluded. The left vertebral artery and basilar artery are patent. The posterior cerebral arteries are normal in course and caliber bilaterally. 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 Otherwise normal CT angiogram of the head as above. Electronically Signed: Ivan Jon MD 01/02/2024 10:02 AM EST Workstation ID: [id number] CT Head Without Contrast Result Date: 01/02/2024 CT HEAD WO CONTRAST Date of Exam: 01/02/2024 3:00 AM EST Indication: seizure. Comparison: Head CT 01/01/2024 Technique: Axial CT images were obtained of the head without contrast administration. Automated exposure control and iterative construction methods were used. Findings: Redemonstration of acute subarachnoid hemorrhage scattered among the right parietal sulci. There is a trace amount of acuteintraventricular blood products within the dependent portions of the bilateral occipital horns (series 3 image 28, 31). There is hyperdense appearance of the posterior falx and tentorium suspicious for very small/thin subdural hematomas (for example series 3 image 31, series 5 image 59); this is possibly new compared to yesterday's head CT. No significant mass effect. No acute large territory infarct. There are scattered subcortical and periventricular white matter hypodensities which are nonspecific and can be seen in the setting of chronic small vessel ischemic change. There is intracranial atherosclerosis. No hydrocephalus. Normal appearance of the orbits. The paranasal sinuses are clear. There is a small amount of fluid in the right mastoid air cells. No acute or suspicious bony findings. The patient is edentulous. Impression: Similar appearance of acute scattered subarachnoid hemorrhage in the right parietal sulci. New or increased trace intraventricular hemorrhage within the dependent portions of the occipital horns. Subtle hyperdense thickening the posterior falx and tentorium, questionably new compared toyday's head CT, suspicious for very thin subdural hematomas. There is no significant mass effec t. No hydrocephalus. Electronically Signed: Orlin Palencia MD 01/02/2024 8:25 AM EST Workstation ID: [id number] EEG Result Date: 01/01/2024 Reason for referral: 78 y.o.male with seizure Technical Summary: A 19 channel digital EEG was performed using the international 10-20 placement system, including eye leads and EKG leads. Duration: 20minutes Findings: The patient is awake and variably agitated. The background shows diffuse medium amplitude 3-6 Hz intermixed delta and theta activity which is present symmetrically over both hemispheres. Eye blink and EMG artifact are seen anteriorly. Later on in the study, the patient is given some sedation and there is diminished EMG artifact although the patient remains restless. No epileptiform activity is seen. No electrographic seizures are seen. No rhythmic discharges are present. Hyperv entilation and photic stimulation are not performed. Video: Available Technical quality: Superior EKG: Irregular, 60-90 bpm SUMMARY: Moderate generalized slow No focal features or epileptiform activity are seen Diffuse cerebral dysfunction of moderate degree, nonspecific No ongoing seizures are seen This report is transcribed using the [employer] dictation system. CT Head Without Contrast Result Date: 01/01/2024 CT HEAD WO CONTRAST Date of Exam: 01/01/2024 5:00 PM EST Indication: Seizure. Comparison: None available. Technique: Axial CT images were obtained of the head without contrast administration. Automated exposure control and iterative construction methods were used. Findings: Examination limited by patient motion. Persistent high density involving the sulci of the right parietal lobe concerning for subarachnoid hemorrhage. Right occipital lobe hypodensity may represent white matter changes howevergiven the patient's motion and underlying mass cannot be excluded. No comparison imaging available.Girard-white matter differentiation is maintained without evidence of an acute infarction. Multiple foci of decreased attenuation are present within the subcortical, deep cerebral, and periventricular white matter consistent with chronic small vessel/microangiopathic ischemic changes. No extra-axial mass or collection. The ventricles and sulci are prominent commensurate with involutional changes. The posterior fossa appears grossly normal. Sellar and suprasellar structures are normal. Orbital andperiorbital soft tissues are normal. The paranasal sinuses, ethmoid air cells, and mastoid air cells are aerated. The bony calvarium is intact. Impression: Examination limited by patient motion. Findings concerning for subarachnoid hemorrhage along the right parietal lobe. Hypodensity within the right occipital lobe is likely white matter disease however an underlying mass cannot be excluded. Findings were discussed with TRUDI Reid at 5:25p.m. on 01/01/2024 Electronically Signed: Yemi Thomas MD 01/01/2024 5:25 PM EST Workstation ID: [id number] FL C Arm During Surgery Result Date: 01/01/2024 This procedure was auto-finalized with no dictation required. Adult Transthoracic Echo Complete W/ Cont if Necessary Per Protocol Result Date: 12/12/2023 Left ventricular systolic function is normal. Calculated left ventricular EF = 58.5% Left ventricular wall thickness is consistent with mild concentric hypertrophy. Moderate mitral valve regurgitation is present. Estimated right ventricular systolic pressure from tricuspid regurgitation is normal (<35 mmHg). During this visit the following were done: Labs Reviewed [x] Labs Ordered [] Radiology Reports Reviewed [x] Radiology Ordered [] EKG, echo, and/or stress test reviewed [] EEG results reviewed [] EEG reviewed and interpreted per myself [] Discussed case with neurointerventionalist or neuroradiologist [] Referring Provider Records Reviewed [] ER Records Reviewed [] Hospital Records Reviewed [] History Obtained From Family [] Radiological images view and Interpreted per myself [x] Case Discussed with referring provider [] Decision to obtain and request outside records [] Assessment and Plan New onset seizure 22 traumatic SAH while on Eliquis, neurologically stable and improved. S/P lumbardiscectomy. CTA and MRA head w/o aneurism, incidental right vertebral artery occlusion is noted. S/P discectomy. - BP<140/90. - Remain off of Eliquis which he was taking for chronic AF until cleared by NS. - Continue Keppra 500 mg bid on discharge for 3 months. - No driving for 90 days. - Neurology clinic F/U. - ST, PT, OT, likely inpatient rehab for postop recovery. Call for questions, will see prn. Thanks. * Tyrone Vee MD - 01/03/2024 11:07 AM EST [facility] Chief Complaint: Seizures Subjective S No significant issues overnight. Patient is afebrile and hemodynamically stable. Mentation has significantly improved. Alert, oriented and conversational. He endorsed lower back and lower extremity pain this morning which limited compliance with PT. OT planning on continuing therapy later. Family at bedside. PMH: He has a past medical history of Allergies, Chronic atrial fibrillation, Chronic atrial fibrillation, unspecified, CKD (chronic kidney disease), stage III, DDD (degenerative disc disease), lumbar, Full dentures, GERD without esophagitis, Hypercholesterolemia, Hypertension, Mitral regurgitation (07/04/2022), Nonrheumatic mitral (valve) insufficiency, Paroxysmal atrial fibrillation, SOB (shortness of breath), and Wears glasses. PSxH: He has a past surgical history that includes Cholecystectomy; Appendectomy; Shoulder arthroscopy (Right); Back surgery; Teeth Extraction; and lumbar laminectomy discectomy decompression (N/A, 01/01/2024). Medications: No current facility-administered medications on file prior to encounter. Current Outpatient Medications on File Prior to Encounter Medication Sig ??? allopurinol (ZYLOPRIM) 100 MG tablet Take 1 tablet by mouth Daily. ??? Livalo 4 MG tablet Take 1 tablet by mouth Every Night. ??? omeprazole (priLOSEC) 20 MG capsule Take 1 capsule by mouth Daily. ??? probenecid (BENEMID) 500 MG tablet Take 0.5 tablets by mouth Daily. 1/2 PILL QD ??? TART PELLETIER PO Take 1 tablet by mouth Daily. ??? Xarelto 20 MG tablet Take 1 tablet by mouth Daily. (Patient taking differently: Take 1 tablet by mouth Daily. WILL HOLD 3 DAYS PRIOR TO SURGERY PER DR HITCHCOCK) Allergies: He is allergic to triple antibiotic w/hydrocortisone [eeuvdhn-vzjgulpn-gjwcukrhf-hc] andcodeine. FH: His family history includes Arthritis in his mother; Cancer in his brother; Diabetes in his sister; Stroke in his father. SH: He reports that he quit smoking about 50 years ago. His smoking use included cigarettes. He hasbeen exposed to tobacco smoke. He has never used smokeless tobacco. He reports current alcohol use.He reports that he does not use drugs. The patient's relevant past medical, surgical and social history were reviewed and updated in [facility] as appropriate. Objective O I/O 24 hrs (7:00AM - 6:59 AM) Intake/Output 01/02/24 0700 - 01/03/24 0659 01/03/24 0700 - 01/04/24 0659 Intake (ml) 1273.9 -- Output (ml) 1955 150 Net (ml) -681.1 -150 Medications (drips): sodium chloride, Last Rate: 50 mL/hr (01/02/24 1322) Physical Examination: Vital Signs: Blood pressure 110/75, pulse 69, temperature 97.5 ??F (36.4 ??C), temperature source Bladder, resp. rate 18, SpO2 97%. General: The patient appears in no acute distress. Lying comfortably in bed. Afebrile, hemodynamically stable. Chest: Course breath sounds throughout. Non-labored. Appropriate saturations on NC. Cardiac: Tachycardia. S1S2 auscultated. Abdomen: Soft, non-tender, non-distended, positive bowel sounds in all four quadrants. Extremities: No lower extremity edema. No clubbing or cyanosis. Neuro: Alert, oriented x3. Conversational this morning. Following commands. No focal deficits appreciated. Lines, Drains & Airways Active LDAs Name Placement date Placement time Site Days Peripheral IV 01/01/24 1120 Distal;Posterior;Right Forearm 01/01/24 1120 Forearm less than 1 Closed/Suction Drain 1 Inferior;Midline Back Accordion 10 Fr. 01/01/24 -- Back less than 1 Results from last 7 days Lab Units 01/03/24 0423 01/02/24 0731 WBC 10*3/mm3 14.22* 12.19* HEMOGLOBIN g/dL 14.1 14.5 MCV fL 88.7 87.9 PLATELETS 10*3/mm3 160 165 Results from last 7 days Lab Units 01/03/24 0423 01/02/24 0731 01/01/24 1539 SODIUM mmol/L 142 144 140 POTASSIUM mmol/L 4.9 4.5 4.0 CO2 mmol/L 26.0 19.0* 13.0* CREATININE mg/dL 1.13 1.38* 1.43* MAGNESIUM mg/dL 2.3 2.5* -- PHOSPHORUS mg/dL -- 4.8* -- Estimated Creatinine Clearance: 68.1 mL/min (by C-G formula based on SCr of 1.13 mg/dL). Respiratory (ie nasal cannula, HFNC, BiPAP, mechanical ventilation settings) support: NC Images: MRI Angiogram Head Without Contrast Result Date: 01/02/2024 1.Findings compatible with scattered subarachnoid hemorrhage within multiple cerebral cortical sulci, right greater than left. Probable hemorrhage within the prepontine cistern, interpeduncular fossa, and within the occipital horns of the lateral ventricles. No hydrocephalus is seen. 2.No diffusionrestriction is identified to suggest acute infarct. 3.Findings compatible with chronic microvascular ischemic change. 4.MR angiographic images are limited due to motion artifact. Nonvisualized intracranial portion of the right vertebral artery as was noted on the accompanying CTA examination. No intracranial aneurysm is identified. 5.Right mastoid effusion. Electronically Signed: Hoang Rdz MD 01/02/2024 3:28 PM EST Workstation ID: [id number] MRI Brain Without Contrast Result Date: 01/02/2024 1.Findings compatible with scattered subarachnoid hemorrhage within multiple cerebral cortical sulci, right greater than left. Probable hemorrhage within the prepontine cistern, interpeduncular fossa, and within the occipital horns of the lateral ventricles. No hydrocephalus is seen. 2.No diffusionrestriction is identified to suggest acute infarct. 3.Findings compatible with chronic microvascular ischemic change. 4.MR angiographic images are limited due to motion artifact. Nonvisualized intracranial portion of the right vertebral artery as was noted on the accompanying CTA examination. No intracranial aneurysm is identified. 5.Right mastoid effusion. 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 Otherwise normal CT angiogram of the head as above. Electronically Signed: Ivan Jon MD 01/02/2024 10:02 AM EST Workstation ID: [id number] CT Head Without Contrast Result Date: 01/02/2024 Impression: Similar appearance of acute scattered subarachnoid hemorrhage in the right parietal sulci. New or increased trace intraventricular hemorrhage within the dependent portions of the occipital horns. Subtle hyperdense thickening the posterior falx and tentorium, questionably new compared 's head CT, suspicious for very thin subdural hematomas. There is no significant mass effec t. No hydrocephalus. Electronically Signed: Orlin Palencia MD 01/02/2024 8:25 AM EST Workstation ID: [id number] EEG Result Date: 01/01/2024 Diffuse cerebral dysfunction of moderate degree, nonspecific No ongoing seizures are seen This report is transcribed using the [employer] dictation system. CT Head Without Contrast Result Date: 01/01/2024 Impression: Examination limited by patient motion. Findings concerning for subarachnoid hemorrhage along the right parietal lobe. Hypodensity within the right occipital lobe is likely white matter disease however an underlying mass cannot be excluded. Findings were discussed with TRUDI Reid at 5:25p.m. on 01/01/2024 Electronically Signed: Yemi Thomas MD 01/01/2024 5:25 PM EST Workstation ID: [id number] I reviewed the patient's new laboratory and imaging results. I independently reviewed the patient's new images. Assessment & Plan A / P Active Hospital Problems: Active Hospital Problems Diagnosis POA ??? 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 Lumbar stenosis [M48.061] Yes ??? Seizure [R56.9] Yes Resolved Hospital Problems Diagnosis Date Resolved POA ??? TUNDE (acute kidney injury) [N17.9] 01/03/2024 Unknown #Spinal stenosis [lumbar] #Seizures -Admit patient to the ICU for neuro checks and close hemodynamic monitoring post procedure. Neurosurgery closely following. Now status post lumbar laminectomy (01/01). Pain control as needed. Lumbar drain removed (01/03) -Seizures in PACU and again following ICU transfer. Both self abated. Consulted neurology who continues to follow. Loaded with Keppra (spoke with neuro concerning loading dose given renal function/TUNDE). Spot EEG performed with no seizure-like activity. BID Keppra scheduled; dose per neurology team.Stat CTH following event showed acute, scattered subarachnoid hemorrhage in the right parietal sulci. Follow-up CTA performed--> MRI/MRA (01/02/2024) to help with prognosis and help with determining chronicity of changes. Suspect acute on chronic following discussion with neurology on 01/02. Mentation improving, no focal deficits on exam today -Nicardipine for BP if needed -Discussed case with patient's family on 01/03 #TUNDE [improving] -Will monitor creatinine, urine output and electrolytes while in the ICU. Electrolyte replacement per unit protocol F-NPO A-NA S-NA T-SCDs H-Head of bed greater than 30 degrees U-PPI G-FSBS per unit protocol, correction dose insulin S-NA B-Will monitor and provide regimen if indicated I-PIV D-[Perioperative] Cefazolin Plan of care and goals reviewed during interdisciplinary rounds. I discussed the patient's findings and my recommendations with patient, nursing staff, and consulting provider. -- Adam Vee MD Pulmonary/Critical Care * Hank Hitchcock MD - 01/03/2024 9:45 AM EST NEUROSURGERY PROGRESS NOTE Chief Complaint: Lumbar stenosis seizure Subjective: Stable overnight. No issues. This morning he is calm and more alert. Objective Vital Signs: Blood pressure 137/68, pulse 60, temperature 97.7 ??F (36.5 ??C), temperature source Bladder, resp. rate 18, SpO2 93%. Physical Exam Awake, alert and oriented x 3 Opens eyes spont Pupils 3 mm reactive bilaterally Extraocular muscles intact bilaterally Face symmetric bilaterally Tongue midline 5/5 in all 4 extremities Dressing dry Intake/Output: Intake/Output Summary (Last 24 hours) at 01/03/2024 0945 Last data filed at 01/03/2024 0600 Gross per 24 hour Intake 1273.9 ml Output 1955 ml Net -681.1 ml Current Medications: Current Facility-Administered Medications: allopurinol (ZYLOPRIM) tablet 100 mg, 100 mg, Oral, Daily, Hank Hitchcock MD, 100 mg at 01/03/24 0931 atorvastatin (LIPITOR) tablet 40 mg, 40 mg, Oral, Daily, Hank Hitchcock MD diazePAM (VALIUM) injection 2.5 mg, 2.5 mg, Intravenous, Q4H PRN, Tyrone Vee MD, 2.5 mg at 01/02/24 1312 diazePAM (VALIUM) injection 5 mg, 5 mg, Intravenous, Q1H PRN, Tyrone Vee MD, 5 mg at 01/02/24 1420 docusate sodium (COLACE) capsule 100 mg, 100 mg, Oral, BID PRN, Hank Hitchcock MD Enoxaparin Sodium (LOVENOX) syringe 40 mg, 40 mg, Subcutaneous, Daily, Hank Hitchcock MD, 40 mgat 01/02/242003 HYDROcodone-acetaminophen (NORCO) 5-325 MG per tablet 2 tablet, 2 tablet, Oral, Q4H PRN, Hank Hitchcock MD levETIRAcetam (KEPPRA) injection 250 mg, 250 mg, Intravenous, Q12H, Malcom Contreras MD, 250 mg at 01/03/24 0556 magnesium hydroxide (MILK OF MAGNESIA) 400 MG/5ML suspension 30 mL, 30 mL, Oral, Daily PRN, Hank Hitchcock MD [DISCONTINUED] HYDROmorphone (DILAUDID) injection 0.5 mg, 0.5 mg, Intravenous, Q2H PRN, 0.5 mg at 01/03/24 0810 AND naloxone (NARCAN) injection 0.4 mg, 0.4 mg, Intravenous, Q5 Min PRN, Hank Hitchcock MD ondansetron ODT (ZOFRAN-ODT) disintegrating tablet 4 mg, 4 mg, Oral, Q6H PRN OR ondansetron (ZOFRAN) injection 4 mg, 4 mg, Intravenous, Q6H PRN, Hank Hitchcock MD pantoprazole (PROTONIX) injection 40 mg, 40 mg, Intravenous, Q AM, Valdemar Curran APRN, 40 mg at 01/03/24 0556 polyethylene glycol (MIRALAX) packet 17 g, 17 g, Oral, Daily PRN, Hank Hitchcock MD probenecid (BENEMID) tablet 250 mg, 250 mg, Oral, Daily, Hank Hitchcock MD, 250 mg at 01/03/24 0931 sennosides-docusate (PERICOLACE) 8.6-50 MG per tablet 1 tablet, 1 tablet, Oral, Nightly PRN, Hank Hitchcock MD sodium chloride 0.9 % flush 10 mL, 10 mL, Intravenous, PRN, Hank Hitchcock MD, 10 mL at 01/01/24 2040 sodium chloride 0.9 % flush 3 mL, 3 mL, Intravenous, Q12H, Hank Hitchcock MD, 3 mL at 01/02/24 0808 sodium chloride 0.9 % infusion 40 mL, 40 mL, Intravenous, PRN, Hank Hitchcock MD sodium chloride 0.9 % infusion, 50 mL/hr, Intravenous, Continuous, Hank Hitchcock MD, Last Rate: 50 mL/hr at 01/02/24 1322, 50 mL/hr at 01/02/24 1322 Laboratory Results: Lab 01/03/24 0423 01/02/24 0731 WBC 14.22* 12.19* HEMOGLOBIN 14.1 14.5 HEMATOCRIT 44.7 45.7 PLATELETS 160 165 NEUTROS ABS -- 11.18* IMMATURE GRANS (ABS) -- 0.06* LYMPHS ABS -- 0.61* MONOS ABS -- 0.33 EOS ABS -- 0.00 MCV 88.7 87.9 Lab 01/03/24 0423 01/02/24 0731 01/01/24 1539 SODIUM 142 144 140 POTASSIUM 4.9 4.5 4.0 CHLORIDE 107 109* 103 CO2 26.0 19.0* 13.0* ANION GAP 9.0 16.0* 24.0* BUN 20 15 19 CREATININE 1.13 1.38* 1.43* EGFR 66.9 52.7* 50.5* GLUCOSE 102* 121* 202* CALCIUM 8.7 8.3* 8.6 MAGNESIUM 2.3 2.5* -- PHOSPHORUS -- 4.8* -- Lab 01/03/24 0423 FIO2 28 CARBOXYHEMOGLOBIN (VENOUS) 1.2 Brief Urine Lab Results None Microbiology Results (last 10 days) No results found for the last 240 hours. Diagnostic Imaging: I reviewed and independently interpreted the new imaging. Assessment/Plan: This is a 78-year-old male who underwent an uneventful L3-4 laminectomy on 01/01 but experienced a postoperative seizure. The patient continues to improve neurologically. He is much more awake and alert today. MRI and MRA negative for any findings concerning the small subarachnoid hemorrhage. Patient has not had any further seizures. Appreciate neurology input. We are going to work on getting him cleared with a bedside swallow so that he can begin eating and taking his oral pain medications. Continue to mobilize with PT and OT. If the patient is doing well this afternoon, we can look to transfer him to the floor. He will likely require inpatient rehab. Any copied data from previous notes included in the (1) History of Present Illness, (2) Physical Examination and (3) Medical Decision Making and/or Assessment and Plan has been reviewed and is accurate as of 01/03/24 Hank Hitchcock MD 01/03/24 09:45 EST * Tyrone Vee MD - 01/02/2024 3:40 PM EST [facility] Chief Complaint: Seizures Subjective S Electronically signed by Nancie Andrade APRN, 01/01/24, 3:33 PM EST. PMH: He has a past medical history of Allergies, Chronic atrial fibrillation, Chronic atrial fibrillation, unspecified, CKD (chronic kidney disease), stage III, DDD (degenerative disc disease), lumbar, Full dentures, GERD without esophagitis, Hypercholesterolemia, Hypertension, Mitral regurgitation (07/04/2022), Nonrheumatic mitral (valve) insufficiency, Paroxysmal atrial fibrillation, SOB (shortness of breath), and Wears glasses. PSxH: He has a past surgical history that includes Cholecystectomy; Appendectomy; Shoulder arthroscopy (Right); Back surgery; Teeth Extraction; and lumbar laminectomy discectomy decompression (N/A, 01/01/2024). Medications: No current facility-administered medications on file prior to encounter. Current Outpatient Medications on File Prior to Encounter Medication Sig ??? allopurinol (ZYLOPRIM) 100 MG tablet Take 1 tablet by mouth Daily. ??? Livalo 4 MG tablet Take 1 tablet by mouth Every Night. ??? omeprazole (priLOSEC) 20 MG capsule Take 1 capsule by mouth Daily. ??? probenecid (BENEMID) 500 MG tablet Take 0.5 tablets by mouth Daily. 1/2 PILL QD ??? TART PELLETIER PO Take 1 tablet by mouth Daily. ??? Xarelto 20 MG tablet Take 1 tablet by mouth Daily. (Patient taking differently: Take 1 tablet by mouth Daily. WILL HOLD 3 DAYS PRIOR TO SURGERY PER DR HITCHCOCK) Allergies: He is allergic to triple antibiotic w/hydrocortisone [lqsuqot-[id number]-lrbpbsesl-hc] andcodeine. FH: His family history includes Arthritis in his mother; Cancer in his brother; Diabetes in his sister; Stroke in his father. SH: He reports that he quit smoking about 50 years ago. His smoking use included cigarettes. He hasbeen exposed to tobacco smoke. He has never used smokeless tobacco. He reports current alcohol use.He reports that he does not use drugs. The patient's relevant past medical, surgical and social history were reviewed and updated in [facility] as appropriate. Objective O I/O 24 hrs (7:00AM - 6:59 AM) Intake/Output 01/01/24 0700 - 01/02/24 0659 Intake (ml) 1869.4 Output (ml) 1865 Net (ml) 4.4 Medications (drips): niCARdipine, Last Rate: 2.5 mg/hr (01/01/242037) sodium chloride, Last Rate: 50 mL/hr (01/02/24 1322) Physical Examination: Vital Signs: Blood pressure 127/90, pulse 94, temperature 97.7 ??F (36.5 ??C), temperature source Bladder, resp. rate 20, SpO2 90%. Exam performed post-ictal following second event in ICU: General: The patient appears in no acute distress. Chest: Course breath sounds throughout. Non-labored. Appropriate saturations on NC. Cardiac: Tachycardia. S1S2 auscultated. Abdomen: Soft, non-tender, non-distended, positive bowel sounds in all four quadrants. Extremities: No lower extremity edema. No clubbing or cyanosis. Neuro: Alert, oriented x1. Agitated, restless. Following commands. Moving upper/lower extremities equally and bilaterally. Lines, Drains & Airways Active LDAs Name Placement date Placement time Site Days Peripheral IV 01/01/24 1120 Distal;Posterior;Right Forearm 01/01/24 1120 Forearm less than 1 Closed/Suction Drain 1 Inferior;Midline Back Accordion 10 Fr. 01/01/24 -- Back less than 1 Results from last 7 days Lab Units 01/02/24 0731 WBC 10*3/mm3 12.19* HEMOGLOBIN g/dL 14.5 MCV fL 87.9 PLATELETS 10*3/mm3 165 Results from last 7 days Lab Units 01/02/24 0731 01/01/24 1539 SODIUM mmol/L 144 140 POTASSIUM mmol/L 4.5 4.0 CO2 mmol/L 19.0* 13.0* CREATININE mg/dL 1.38* 1.43* MAGNESIUM mg/dL 2.5* -- PHOSPHORUS mg/dL 4.8* -- Estimated Creatinine Clearance: 55.7 mL/min (A) (by C-G formula based on SCr of 1.38 mg/dL (H)). Respiratory (ie nasal cannula, HFNC, BiPAP, mechanical ventilation settings) support: NC Images: MRI Angiogram Head Without Contrast Result Date: 01/02/2024 1.Findings compatible with scattered subarachnoid hemorrhage within multiple cerebral cortical sulci, right greater than left. Probable hemorrhage within the prepontine cistern, interpeduncular fossa, and within the occipital horns of the lateral ventricles. No hydrocephalus is seen. 2.No diffusionrestriction is identified to suggest acute infarct. 3.Findings compatible with chronic microvascular ischemic change. 4.MR angiographic images are limited due to motion artifact. Nonvisualized intracranial portion of the right vertebral artery as was noted on the accompanying CTA examination. No intracranial aneurysm is identified. 5.Right mastoid effusion. Electronically Signed: Hoang Rdz MD 01/02/2024 3:28 PM EST Workstation ID: [id number] MRI Brain Without Contrast Result Date: 01/02/2024 1.Findings compatible with scattered subarachnoid hemorrhage within multiple cerebral cortical sulci, right greater than left. Probable hemorrhage within the prepontine cistern, interpeduncular fossa, and within the occipital horns of the lateral ventricles. No hydrocephalus is seen. 2.No diffusionrestriction is identified to suggest acute infarct. 3.Findings compatible with chronic microvascular ischemic change. 4.MR angiographic images are limited due to motion artifact. Nonvisualized intracranial portion of the right vertebral artery as was noted on the accompanying CTA examination. No intracranial aneurysm is identified. 5.Right mastoid effusion. 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 Otherwise normal CT angiogram of the head as above. Electronically Signed: Ivan Jon MD 01/02/2024 10:02 AM EST Workstation ID: [id number] CT Head Without Contrast Result Date: 01/02/2024 Impression: Similar appearance of acute scattered subarachnoid hemorrhage in the right parietal sulci. New or increased trace intraventricular hemorrhage within the dependent portions of the occipital horns. Subtle hyperdense thickening the posterior falx and tentorium, questionably new compared 's head CT, suspicious for very thin subdural hematomas. There is no significant mass effec t. No hydrocephalus. Electronically Signed: Orlin Palencia MD 01/02/2024 8:25 AM EST Workstation ID: [id number] EEG Result Date: 01/01/2024 Diffuse cerebral dysfunction of moderate degree, nonspecific No ongoing seizures are seen This report is transcribed using the [employer] dictation system. CT Head Without Contrast Result Date: 01/01/2024 Impression: Examination limited by patient motion. Findings concerning for subarachnoid hemorrhage along the right parietal lobe. Hypodensity within the right occipital lobe is likely white matter disease however an underlying mass cannot be excluded. Findings were discussed with TRUDI Reid at 5:25p.m. on 01/01/2024 Electronically Signed: Yemi Thomas MD 01/01/2024 5:25 PM EST Workstation ID: [id number] I reviewed the patient's new laboratory and imaging results. I independently reviewed the patient's new images. Assessment & Plan A / P Active Hospital Problems: Active Hospital Problems Diagnosis POA ??? Spinal stenosis of lumbar region [M48.061] Unknown ??? 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 Lumbar stenosis [M48.061] Yes ??? TUNDE (acute kidney injury) [N17.9] Unknown ??? Seizures [R56.9] Unknown ??? Seizure [R56.9] Yes Resolved Hospital Problems No resolved problems to display. -Admit patient to the ICU for neuro checks and close hemodynamic monitoring post procedure. Neurosurgery closely following. Now status post lumbar laminectomy (01/01). Pain control as needed -Seizures in PACU and again following ICU transfer. Both self abated. Consulted neurology, loaded with Keppra (spoke with neuro concerning loading dose given renal function) and ordered continuous EEG for overnight. Spot EEG performed without seizure-like activity. BID Keppra scheduled; dose per neurology team. Stat CTH following event showed acute, scattered subarachnoid hemorrhage in the right parietal sulci. CTA performed--> MRI/MRA pending to help with prognosis and help with determiningchronicity of changes. Suspect acute on chronic following discussion with neurology on 01/02 -Nicardipine for BP if needed -Discussed case with patient's family members on 01/02 at bedside -PRN benzodiazepines for agitation (specifically to help with sedation/anxiety during MRA/MRI) and for seizures lasting longer than 3 minutes #TUNDE -Will monitor creatinine, urine output and electrolytes while in the ICU. Electrolyte replacement per unit protocol F-NPO A-NA S-NA T-SCDs H-Head of bed greater than 30 degrees U-PPI G-FSBS per unit protocol, correction dose insulin S-NA B-Will monitor and provide regimen if indicated I-PIV D-Perioperative Cefazolin Plan of care and goals reviewed during interdisciplinary rounds. I discussed the patient's findings and my recommendations with patient, nursing staff, and consulting provider Time: Critical Care time spent in direct patient care: 30 minutes (excluding procedure time, if applicable) including high complexity decision making to assess, manipulate, and support vital organ system failure in this individual who has impairment of one or more vital organ systems such that there is a high probability of imminent or life threatening deterioration in the patient???s condition. -- Adam Vee MD Pulmonary/Critical Care * Hank Hitchcock MD - 01/02/2024 11:15 AM EST NEUROSURGERY PROGRESS NOTE Chief Complaint: Lumbar stenosis Subjective: This is a 78-year-old male who underwent an uneventful L3-4 laminectomy yesterday. In the recovery area, he experienced a tonic-clonic seizure. He then experienced 1 more shortly after this. The patient was loaded with Keppra and EEG showed no further seizure activity. Overnight, he hasslowly improved. This morning, he is able to say his name and follows commands in all [address] scans of his head which showed small right parietal subarachnoid hemorrhage of unknown etiology. Objective Vital Signs: Blood pressure 114/87, pulse 68, temperature 97.7 ??F (36.5 ??C), temperature source Bladder, resp. rate 20, SpO2 97%. Physical Exam Sleeping, wakes to voice. Pupils 3 mm reactive bilaterally Able to say name, but does not answer other questions appropriately. He follows commands in all 4 extremities with good strength Intake/Output: Intake/Output Summary (Last 24 hours) at 01/02/2024 1115 Last data filed at 01/02/2024 0600 Gross per 24 hour Intake 1869.4 ml Output 1865 ml Net 4.4 ml Current Medications: Current Facility-Administered Medications: allopurinol (ZYLOPRIM) tablet 100 mg, 100 mg, Oral, Daily, Hank Hitchcock MD atorvastatin (LIPITOR) tablet 40 mg, 40 mg, Oral, Daily, Hank Hitchcock MD diazePAM (VALIUM) injection 2.5 mg, 2.5 mg, Intravenous, Q4H PRN, Tyrone Vee MD docusate sodium (COLACE) capsule 100 mg, 100 mg, Oral, BID PRN, Hank Hitchcock MD Enoxaparin Sodium (LOVENOX) syringe 40 mg, 40 mg, Subcutaneous, Daily, Hank Hitchcock MD HYDROcodone-acetaminophen (NORCO) 5-325 MG per tablet 2 tablet, 2 tablet, Oral, Q4H PRN, Hank Hitchcock MD HYDROmorphone (DILAUDID) injection 0.5 mg, 0.5 mg, Intravenous, Q2H PRN AND naloxone (NARCAN) injection 0.4 mg, 0.4 mg, Intravenous, Q5 Min PRN, Hank Hitchcock MD levETIRAcetam (KEPPRA) injection 250 mg, 250 mg, Intravenous, Q12H, Malcom Contreras MD magnesium hydroxide (MILK OF MAGNESIA) 400 MG/5ML suspension 30 mL, 30 mL, Oral, Daily PRN, Hank Hitchcock MD niCARdipine (CARDENE) 25mg in 250mL NS infusion, 5-15 mg/hr, Intravenous, Titrated, Arely Rodriguez PA-C, Last Rate: 25 mL/hr at 01/01/242037, 2.5 mg/hr at 01/01/242037 ondansetron ODT (ZOFRAN-ODT) disintegrating tablet 4 mg, 4 mg, Oral, Q6H PRN OR ondansetron (ZOFRAN) injection 4 mg, 4 mg, Intravenous, Q6H PRN, Hank Hitchcock MD pantoprazole (PROTONIX) injection 40 mg, 40 mg, Intravenous, Q AM, Valdemar Curran, [employer]ER SERVICE REPRESENTATIVE, 40 mg at 01/02/24 0534 polyethylene glycol (MIRALAX) packet 17 g, 17 g, Oral, Daily PRN, Hank Hitchcock MD probenecid (BENEMID) tablet 250 mg, 250 mg, Oral, Daily, Hank Hitchcock MD sennosides-docusate (PERICOLACE) 8.6-50 MG per tablet 1 tablet, 1 tablet, Oral, Nightly PRN, Hank Hitchcock MD sodium chloride 0.9 % flush 10 mL, 10 mL, Intravenous, PRN, Hank Hitchcock MD, 10 mL at 01/01/24 2040 sodium chloride 0.9 % flush 3 mL, 3 mL, Intravenous, Q12H, Hank Hitchcock MD, 3 mL at 01/02/24 0808 sodium chloride 0.9 % infusion 40 mL, 40 mL, Intravenous, PRN, Hank Hitchcock MD sodium chloride 0.9 % infusion, 50 mL/hr, Intravenous, Continuous, Hank Hitchcock MD, Last Rate: 50 mL/hr at 01/01/24 1625, 50 mL/hr at 01/01/24 1625 Laboratory Results: Lab 01/02/24 0731 WBC 12.19* HEMOGLOBIN 14.5 HEMATOCRIT 45.7 PLATELETS 165 NEUTROS ABS 11.18* IMMATURE GRANS (ABS) 0.06* LYMPHS ABS 0.61* MONOS ABS 0.33 EOS ABS 0.00 MCV 87.9 Lab 01/02/24 0731 01/01/24 1539 SODIUM 144 140 POTASSIUM 4.5 4.0 CHLORIDE 109* 103 CO2 19.0* 13.0* ANION GAP 16.0* 24.0* BUN 15 19 CREATININE 1.38* 1.43* EGFR 52.7* 50.5* GLUCOSE 121* 202* CALCIUM 8.3* 8.6 MAGNESIUM 2.5* -- PHOSPHORUS 4.8* -- Brief Urine Lab Results None Microbiology Results (last 10 days) No results found for the last 240 hours. Diagnostic Imaging: I reviewed and independently interpreted the new imaging. Assessment/Plan: This is a 78-year-old male who underwent an uneventful L3-4 laminectomy on 01/01 but experienced a postoperative seizure. The patient has not had any further seizures overnight. His neurological exam is continuing to improve. Sodium is normal. He is currently on Keppra. CT scan shows small right parietal subarachnoid hemorrhage of unknown etiology. CTA was negative. We are going to obtain a brain MRI with and without contrast today. Neurology has also been consulted. Will continue to monitor thepatient in the ICU. In further discussion with the patient's daughter, they do endorse that he had a fall few days ago. The patient was taking Eliquis prior to surgery and the small subarachnoid hemor rhage is likely a result of the fall and anticoagulation. He is currently off of his Eliquis for his operation and we will continue to hold this temporarily. Any copied data from previous notes included in the (1) History of Present Illness, (2) Physical Examination and (3) Medical Decision Making and/or Assessment and Plan has been reviewed and is accurate as of 01/02/24 Hank Hitchcock MD 01/02/24 11:15 EST * Tyrone Vee MD - 01/01/2024 3:33 PM EST [facility] Chief Complaint: Seizures Subjective S MR. Terrell is a 78 yo male with PMH Chronic A. Fib, CKD stage III, GERD, HLD, Htn, Mitral regurgitation, Mitral valve insufficiency, who presents to the ICU as a transfer from the PACU s/p laminectomy followed by a seizure. He underwent L4-5 discectomy several years ago. He presented back to the NS office with 1 year history of progressively worsening back pain and bilateral lower extremity painwith weakness when ambulating. MRI showed severe stenosis at L3-[address] Hitchcock felt he would need L3-4 laminectomy so he presented to the hospital today for procedure. While in PACU he had a seizure he is therefore being admitted to the ICU for surveillance. I spent 5 minutes of time on this. Nancie Andrade, MSN, AGACNP-BC, RETAIL CUSTOMER SERVICE REPRESENTATIVE Electronically signed by Nancie Adnrade APRN, 01/01/24, 3:33 PM EST. PMH: He has a past medical history of Allergies, Chronic atrial fibrillation, Chronic atrial fibrillation, unspecified, CKD (chronic kidney disease), stage III, DDD (degenerative disc disease), lumbar, Full dentures, GERD without esophagitis, Hypercholesterolemia, Hypertension, Mitral regurgitation (07/04/2022), Nonrheumatic mitral (valve) insufficiency, Paroxysmal atrial fibrillation, SOB (shortness of breath), and Wears glasses. PSxH: He has a past surgical history that includes Cholecystectomy; Appendectomy; Shoulder arthroscopy (Right); Back surgery; and Teeth Extraction. Medications: No current facility-administered medications on file prior to encounter. Current Outpatient Medications on File Prior to Encounter Medication Sig ??? allopurinol (ZYLOPRIM) 100 MG tablet Take 1 tablet by mouth Daily. ??? Livalo 4 MG tablet Take 1 tablet by mouth Every Night. ??? omeprazole (priLOSEC) 20 MG capsule Take 1 capsule by mouth Daily. ??? probenecid (BENEMID) 500 MG tablet Take 0.5 tablets by mouth Daily. 1/2 PILL QD ??? TART PELLETIER PO Take 1 tablet by mouth Daily. ??? [DISCONTINUED] chlorhexidine (HIBICLENS) 4 % external liquid Shower each day with solution for 5 days beginning 5 days before surgery. ??? Xarelto 20 MG tablet Take 1 tablet by mouth Daily. (Patient taking differently: Take 1 tablet by mouth Daily. WILL HOLD 3 DAYS PRIOR TO SURGERY PER DR HITCHCOCK) Allergies: He is allergic to triple antibiotic w/hydrocortisone [cnmdgaf-ihihhdrk-vxpgijrtx-hc] andcodeine. FH: His family history includes Arthritis in his mother; Cancer in his brother; Diabetes in his sister; Stroke in his father. SH: He reports that he quit smoking about 50 years ago. His smoking use included cigarettes. He hasbeen exposed to tobacco smoke. He has never used smokeless tobacco. He reports current alcohol use.He reports that he does not use drugs. The patient's relevant past medical, surgical and social history were reviewed and updated in [facility] as appropriate. Objective O I/O 24 hrs (7:00AM - 6:59 AM) Intake/Output 01/01/24 0700 - 01/02/24 0659 Intake (ml) 800 Output (ml) 30 Net (ml) 770 Medications (drips): sodium chloride Physical Examination: Vital Signs: Blood pressure 112/71, pulse 100, temperature 97.3 ??F (36.3 ??C), temperature source Temporal, resp. rate 16, SpO2 97%. Exam performed post-ictal following second event in ICU: General: The patient appears in no acute distress. Chest: Course breath sounds throughout. Non-labored. Appropriate saturations on NC. Cardiac: Tachycardia. S1S2 auscultated. Abdomen: Soft, non-tender, non-distended, positive bowel sounds in all four quadrants. Extremities: No lower extremity edema. No clubbing or cyanosis. Neuro: Pupils reactive. Lines, Drains & Airways Active LDAs Name Placement date Placement time Site Days Peripheral IV 01/01/24 1120 Distal;Posterior;Right Forearm 01/01/24 1120 Forearm less than 1 Closed/Suction Drain 1 Inferior;Midline Back Accordion 10 Fr. 01/01/24 -- Back less than 1 Estimated Creatinine Clearance: 53 mL/min (A) (by C-G formula based on SCr of 1.45 mg/dL (H)). Respiratory (ie nasal cannula, HFNC, BiPAP, mechanical ventilation settings) support: NC Images: EEG Result Date: 01/01/2024 Diffuse cerebral dysfunction of moderate degree, nonspecific No ongoing seizures are seen This report is transcribed using the [employer] system. CT Head Without Contrast Result Date: 01/01/2024 Impression: Examination limited by patient motion. Findings concerning for subarachnoid hemorrhage along the right parietal lobe. Hypodensity within the right occipital lobe is likely white matter disease however an underlying mass cannot be excluded. Findings were discussed with TRUDI Reid at 5:25p.m. on 01/01/2024 Electronically Signed: Yemi Thomas MD 01/01/2024 5:25 PM EST Workstation ID: [id number] I reviewed the patient's new laboratory and imaging results. I independently reviewed the patient's new images. Assessment & Plan A / P Active Hospital Problems: Active Hospital Problems Diagnosis POA ??? Spinal stenosis of lumbar region [M48.061] Unknown ??? 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 Lumbar stenosis [M48.061] Yes ??? TUNDE (acute kidney injury) [N17.9] Unknown ??? Seizures [R56.9] Unknown Resolved Hospital Problems No resolved problems to display. -Admit patient to the ICU for neuro checks and close hemodynamic monitoring post procedure. Neurosurgery closely following. Now status post lumbar laminectomy (01/01). Pain control as needed -Seizures in PACU and again following ICU transfer. Both self abated. Consulted neurology, loaded with Keppra (spoke with neuro concerning loading dose given renal function) and ordered continuous EEG for overnight. BID Keppra scheduled. PRN Versed for events lasting longer than 3x minutes. Stat CTH ordered. Spoke with NS following event -Nicardipine for BP if needed #TUNDE -Will monitor creatinine, urine output and electrolytes while in the ICU. Electrolyte replacement per unit protocol F-NPO A-NA S-NA T-SCDs H-Head of bed greater than 30 degrees U-PPI G-FSBS per unit protocol, correction dose insulin S-NA B-Will monitor and provide regimen if indicated I-PIV D-Perioperative Cefazolin Plan of care and goals reviewed during interdisciplinary rounds. I discussed the patient's findings and my recommendations with patient, nursing staff, and consulting provider Time: Critical Care time spent in direct patient care: 30 minutes (excluding procedure time, if applicable) including high complexity decision making to assess, manipulate, and support vital organ system failure in this individual who has impairment of one or more vital organ systems such that there is a high probability of imminent or life threatening deterioration in the patient???s condition. -- Adam Vee MD Pulmonary/Critical Care documented in this encounter H&P Notes * Eduardo Buitrago, RETAIL CUSTOMER SERVICE REPRESENTATIVE - 01/01/2024 10:20 AM EST Pre-Op H&P [place] [id number] 1945 Chief complaint: Back Pain Subjective: Patient is a 78 y.o.male presents for scheduled surgery by Dr. Hitchcock. He anticipates a LUMBAR LAMINECTOMY DISCECTOMY DECOMPRESSION, POSTERIOR 1-2 LEVELS, L3-4 today. The patient endorses having progressively worsening back pain for the past few years. He endorses pain when standing still and with movement. He also endorses numbness down his left lower extremity at times. He denies taking any medications or do anything to help alleviate his pain. He denies the use of a walker or assistive device to ambulate. + cardiac clearance in chart from 12/17/2023. The last dose of warfarin was on 12/29/23. Review of Systems: Constitutional-- No fever, chills or sweats. No fatigue. CV-- No chest pain, palpitation or syncope. +HTN, HLD. Resp-- No SOB, cough, hemoptysis Skin--No rashes or lesions Allergies: Allergies Allergen Reactions Triple Antibiotic W/Hydrocortisone [Fmgmxhe-Ydbofdgd-Xfspimbvx-Hc] Rash Codeine Other (See Comments) Knots on my head Home Meds: Medications Prior to Admission Medication Sig Dispense Refill Last Dose allopurinol (ZYLOPRIM) 100 MG tablet Take 1 tablet by mouth Daily. 12/31/2023 at 0700 chlorhexidine (HIBICLENS) 4 % external liquid Shower each day with solution for 5 days beginning 5 days before surgery. 120 mL 0 01/01/2024 Livalo 4 MG tablet Take 1 tablet by mouth Every Night. 90 tablet 1 Past Week omeprazole (priLOSEC) 20 MG capsule Take 1 capsule by mouth Daily. 01/01/2024 at 0700 probenecid (BENEMID) 500 MG tablet Take 0.5 tablets by mouth Daily. 1/2 PILL QD 12/31/2023 at 0700 TART PELLETIER PO Take 1 tablet by mouth Daily. 12/31/2023 at 0700 Xarelto 20 MG tablet Take 1 tablet by mouth Daily. (Patient taking differently: Take 1 tablet by mouth Daily. WILL HOLD 3 DAYS PRIOR TO SURGERY PER DR HITCHCOCK) 90 tablet 1 12/29/2023 PMH: Past Medical History: Diagnosis Date Allergies PHOLCODINE TRIPLE ANTIBIOTIC Chronic atrial fibrillation Chronic atrial fibrillation, unspecified CKD (chronic kidney disease), stage III DDD (degenerative disc disease), lumbar Full dentures GERD without esophagitis Hypercholesterolemia Hypertension Mitral regurgitation 07/04/2022 MODERATE Nonrheumatic mitral (valve) insufficiency Paroxysmal atrial fibrillation SOB (shortness of breath) Wears glasses PSH: Past Surgical History: Procedure Laterality Date APPENDECTOMY BACK SURGERY LUMBAR DISC, UNSURE OF EXACT TYPE CHOLECYSTECTOMY SHOULDER ARTHROSCOPY Right TEETH EXTRACTION Immunization History: Influenza: No Pneumococcal: No Tetanus: No Covid : x1 Social History: Tobacco: Social History Tobacco Use Smoking Status Former Types: Cigarettes Quit date: 1973 Years since quittin.1 Passive exposure: Past Smokeless Tobacco Never Alcohol: Social History Substance and Sexual Activity Alcohol Use Yes Comment: BEER PER WK Physical Exam:BP (!) 150/111 (BP Location: Right arm, Patient Position: Lying) Pulse 108 Temp 97 ??F (36.1 ??C) (Tympanic) Resp 16 SpO2 97% General Appearance: Alert, cooperative, no distress, appears stated age Head: Normocephalic, without obvious abnormality, atraumatic Lungs: Clear to auscultation bilaterally, respirations unlabored Heart: S1 and S2 normal. + A-fib, Tachycardic. Abdomen: Soft without tenderness Extremities: Extremities normal, atraumatic, no cyanosis or edema Skin: Skin color, texture, turgor normal, no rashes or lesions Neurologic: Grossly intact Results Review: LABS: Lab Results Component Value Date WBC 11.03 (H) 12/23/2023 HGB 17.1 12/23/2023 HCT 52.2 (H) 12/23/2023 MCV 89.4 12/23/2023 PLT 232 12/23/2023 GLUCOSE 101 (H) 12/23/2023 BUN 22 12/23/2023 CREATININE 1.45 (H) 12/23/2023 NA 136 12/23/2023 K 4.5 12/23/2023 CL 103 12/23/2023 CO2 21.0 (L) 12/23/2023 CALCIUM 9.5 12/23/2023 RADIOLOGY: Imaging Results (Last 72 Hours) No results found for the last 72 hours. I reviewed the patient's new clinical results. Cancer Staging (if applicable) Cancer Patient: __ yes _x_no __unknown; If yes, clinical stage T:__ N:__M:__, stage group or __N/A Impression: Spinal stenosis of lumbar region Plan: LUMBAR LAMINECTOMY DISCECTOMY DECOMPRESSION, POSTERIOR 1-2 LEVELS, L3-4 Eduardo Buitrago APRN 01/01/2024 11:37 EST Cosigned by Hank Hitchcock MD at 01/01/2024 12:44 PM EST Associated attestation - Hank Hitchcock MD - 01/01/2024 12:44 PM EST L3-4 laminectomy today. documented in this encounter Consult Notes * Malcom Contreras MD - 01/02/2024 11:22 AM ESTAssociated Order(s): IP CONSULT TO NEUROLOGY Images from the original note were not included. Neurology Referring provider: Hank Hitchcock MD [address] [place] [address] Reason for Consultation: Seizures Chief complaint: Confused History of present illness: 78-year-old man seen for Dr. Hitchcock for evaluation of seizures. He was found on CT scan to have a right parietal subarachnoid bleed with some small intracerebral bleeding. I talked to his nephew who is his POA who indicates that he had an episode of head bumping against the cushion of his recliner which does not seem to be a problem. However the patient lives alone and basically has been having some trouble walking because of his back. There is no history of falls but the patient is not aware enough to give us any information about that. He was on Eliquis for atrial fibrillation. He had 2 grand mal seizures yesterday witnessed by anesthesia and Dr. Vee. Received 3 g of Keppra 500 mg Keppra this morning. Review of Systems: Patient is unable to participate Home meds: Medications Prior to Admission Medication Sig Dispense Refill Last Dose allopurinol (ZYLOPRIM) 100 MG tablet Take 1 tablet by mouth Daily. 12/31/2023 at 0700 Livalo 4 MG tablet Take 1 tablet by mouth Every Night. 90 tablet 1 Past Week omeprazole (priLOSEC) 20 MG capsule Take 1 capsule by mouth Daily. 01/01/2024 at 0700 probenecid (BENEMID) 500 MG tablet Take 0.5 tablets by mouth Daily. 1/2 PILL QD 12/31/2023 at 0700 TART PELLETIER PO Take 1 tablet by mouth Daily. 12/31/2023 at 0700 Xarelto 20 MG tablet Take 1 tablet by mouth Daily. (Patient taking differently: Take 1 tablet by mouth Daily. WILL HOLD 3 DAYS PRIOR TO SURGERY PER DR HITCHCOCK) 90 tablet 1 12/29/2023 History Past Medical History: Diagnosis Date Allergies PHOLCODINE TRIPLE ANTIBIOTIC Chronic atrial fibrillation Chronic atrial fibrillation, unspecified CKD (chronic kidney disease), stage III DDD (degenerative disc disease), lumbar Full dentures GERD without esophagitis Hypercholesterolemia Hypertension Mitral regurgitation 07/04/2022 MODERATE Nonrheumatic mitral (valve) insufficiency Paroxysmal atrial fibrillation SOB (shortness of breath) Wears glasses , Past Surgical History: Procedure Laterality Date APPENDECTOMY BACK SURGERY LUMBAR DISC, UNSURE OF EXACT TYPE CHOLECYSTECTOMY LUMBAR LAMINECTOMY DISCECTOMY DECOMPRESSION N/A 01/01/2024 Procedure: LUMBAR LAMINECTOMY L3-4; Surgeon: Hank Hitchcock MD; Location: [facility] BEDS AT [facility]; Service: Neurosurgery; Laterality: N/A; SHOULDER ARTHROSCOPY Right TEETH EXTRACTION , Family History Problem Relation Age of Onset Arthritis Mother Stroke Father Diabetes Sister Cancer Brother , Social History Tobacco Use Smoking status: Former Types: Cigarettes Quit date: 1973 Years since quittin.1 Passive exposure: Past Smokeless tobacco: Never Vaping Use Vaping Use: Never used Substance Use Topics Alcohol use: Yes Comment: BEER PER WK Drug use: Never and Allergies: Triple antibiotic w/hydrocortisone [yvezxdb-tfuiasle-bbofboxxi-hc] and Codeine, Vital Signs Blood pressure 114/87, pulse 68, temperature 97.7 ??F (36.5 ??C), temperature source Bladder, resp.rate 20, SpO2 97%. There is no height or weight on file to calculate BMI. Physical Exam: General: White male lying in bed confused Head: No evident trauma Neck: Supple with no bruit Resp: Normal breath sound Cor: Regular rhythm Extremities: No edema Skin: Warm and dry Neuro: Patient is awake but confused. He able to follow occasional simple commands but will not follow with eyes when requested. Cranial nerves show equal corneals equal pupils. The eyes are conjugate. Face is symmetrical. Could not get him to open his mouth or stick out his tongue. Coordination could not be tested. Reflexes are 1+ and equal bilaterally in the upper extremities. The plus minus in the lower extremities. Babinski sign Motor testing shows equal staff midwife and equal withdrawal to stimulation. Sensory testing shows response to noxious stimuli Results Review: CT head and CT angiogram were reviewed personally. CT head shows subarachnoid bleed scattered throughout the right parietal lobe with some minor intraventricular blood. CT angiogram shows no aneurysm but does show a blocked vertebral artery with good collateral filling. Labs: Pending was 1.38. BUN is 15 Lab Results (last 72 hours) Procedure Component Value Units Date/Time Magnesium [[id number]] (Abnormal) Collected: 01/02/24730 Specimen: Blood Updated: 01/02/24852 Magnesium 2.5 mg/dL Basic Metabolic Panel [[id number]] (Abnormal) Collected: 01/02/24730 Specimen: Blood Updated: 01/02/24852 Glucose 121 mg/dL BUN 15 mg/dL Creatinine 1.38 mg/dL Sodium 144 mmol/L Potassium 4.5 mmol/L Comment: Slight hemolysis detected by analyzer. Result may be falsely elevated. Chloride 109 mmol/L CO2 19.0 mmol/L Calcium 8.3 mg/dL BUN/Creatinine Ratio 10.9 Anion Gap 16.0 mmol/L eGFR 52.7 mL/min/1.73 Narrative: GFR Normal >60 Chronic Kidney Disease <60 Kidney Failure <15 The GFR formula is only valid for adults with stable renal function between ages 18 and 70. Phosphorus [[id number]] (Abnormal) Collected: 01/02/24730 Specimen: Blood Updated: 01/02/24852 Phosphorus 4.8 mg/dL CBC & Differential [[id number]] (Abnormal) Collected: 01/02/24730 Specimen: Blood Updated: 01/02/24812 Narrative: The following orders were created for panel order CBC & Differential. Procedure Abnormality Status --------- ------ CBC Auto Differential[[id number]] Abnormal Final result Please view results for these tests on the individual orders. CBC Auto Differential [[id number]] (Abnormal) Collected: 01/02/24730 Specimen: Blood Updated: 01/02/24812 WBC 12.19 10*3/mm3 RBC 5.20 10*6/mm3 Hemoglobin 14.5 g/dL Hematocrit 45.7 % MCV 87.9 fL MCH 27.9 pg MCHC 31.7 g/dL RDW 14.8 % RDW-SD 47.4 fl MPV 10.8 fL Platelets 165 10*3/mm3 Neutrophil % 91.7 % Lymphocyte % 5.0 % Monocyte % 2.7 % Eosinophil % 0.0 % Basophil % 0.1 % Immature Grans % 0.5 % Neutrophils, Absolute 11.18 10*3/mm3 Lymphocytes, Absolute 0.61 10*3/mm3 Monocytes, Absolute 0.33 10*3/mm3 Eosinophils, Absolute 0.00 10*3/mm3 Basophils, Absolute 0.01 10*3/mm3 Immature Grans, Absolute 0.06 10*3/mm3 nRBC 0.0 /100 WBC POC Glucose Once [[id number]] (Normal) Collected: 01/02/24 0459 Specimen: Blood Updated: 01/02/24 0501 Glucose 129 mg/dL POC Glucose Once [[id number]] (Abnormal) Collected: 01/02/24 0014 Specimen: Blood Updated: 01/02/24 0016 Glucose 177 mg/dL POC Glucose Once [[id number]] (Abnormal) Collected: 01/01/24 1813 Specimen: Blood Updated: 01/01/24 1815 Glucose 252 mg/dL Basic Metabolic Panel [[id number]] (Abnormal) Collected: 01/01/24 1539 Specimen: Blood from Arm, Left Updated: 01/01/24 1618 Glucose 202 mg/dL BUN 19 mg/dL Creatinine 1.43 mg/dL Sodium 140 mmol/L Potassium 4.0 mmol/L Comment: Slight hemolysis detected by analyzer. Result may be falsely elevated. Chloride 103 mmol/L CO2 13.0 mmol/L Calcium 8.6 mg/dL BUN/Creatinine Ratio 13.3 Anion Gap 24.0 mmol/L eGFR 50.5 mL/min/1.73 Narrative: GFR Normal >60 Chronic Kidney Disease <60 Kidney Failure <15 The GFR formula is only valid for adults with stable renal function between ages 18 and 70. POC Glucose Once [[id number]] (Abnormal) Collected: 01/01/24 1531 Specimen: Blood Updated: 01/01/24 1533 Glucose 167 mg/dL Rads: Imaging Results (Last 72 Hours) Procedure Component Value Units Date/Time CT Angiogram Head [[id number]] Collected: 01/02/24 0936 Updated: 01/02/24 100 Narrative: CT ANGIOGRAM HEAD Date of Exam: 01/02/2024 3:00 AM EST Indication: Seizures. Comparison: None available. Technique: CTA of the head was performed after the uneventful intravenous administration of 80 mL Isovue-370. Reconstructed coronal and sagittal images were also obtained. In addition, a 3-D volume rendered image was created for interpretation. Automated exposure control and iterative reconstruction methods were used. Findings: The carotid siphons demonstrate no significant atherosclerotic narrowing. The anterior cerebral arteries are normal in course and caliber bilaterally. The right middle cerebral artery demonstrates noevidence of flow-limiting stenosis, large vessel occlusion or aneurysm. The left middle cerebral artery is similarly normal in course and caliber. The right vertebral artery is not well visualized, appearing occluded. The left vertebral artery and basilar artery are patent. The posterior cerebral arteries are normal in course and caliber bilaterally. 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 Otherwise normal CT angiogram of the head as above. Electronically Signed: Ivan Jon MD 01/02/2024 10:02 AM EST Workstation ID: [id number] CT Head Without Contrast [[id number]] Collected: 01/02/24816 Updated: 01/02/24827 Narrative: CT HEAD WO CONTRAST Date of Exam: 01/02/2024 3:00 AM EST Indication: seizure. Comparison: Head CT 01/01/2024 Technique: Axial CT images were obtained of the head without contrast administration. Automated exposure control and iterative construction methods were used. Findings: Redemonstration of acute subarachnoid hemorrhage scattered among the right parietal sulci. There en trace amount of acute intraventricular blood products within the dependent portions of the bilateral occipital horns (series 3 image 28, 31). There is hyperdense appearance of the posterior falx and tentorium suspicious for very small/thin subdural hematomas (for example series 3 image 31, series 5 image 59); this is possibly new compared to yesterday's head CT. No significant mass effect. No acute large territory infarct. There are scattered subcortical and periventricular white matter hypodensities which are nonspecific and can be seen in the setting of chronic small vessel ischemic change. There is intracranial atherosclerosis. No hydrocephalus. Normal appearance of the orbits. The paranasal sinuses are clear. There is a small amount of fluid in the right mastoid air cells. No acute or suspicious bony findings. The patient is edentulous. Impression: Impression: Similar appearance of acute scattered subarachnoid hemorrhage in the right parietal sulci. New or increased trace intraventricular hemorrhage within the dependent portions of the occipital horns. Subtle hyperdense thickening the posterior falx and tentorium, questionably new compared to yesterday's head CT, suspicious for very thin subdural hematomas. There is no significant mass effect. No hydrocephalus. Electronically Signed: Orlin Palencia MD 01/02/2024 8:25 AM EST Workstation ID: [id number] CT Head Without Contrast [[id number]] Collected: 01/01/241719 Updated: 01/01/241727 Narrative: CT HEAD WO CONTRAST Date of Exam: 01/01/2024 5:00 PM EST Indication: Seizure. Comparison: None available. Technique: Axial CT images were obtained of the head without contrast administration. Automated exposure control and iterative construction methods were used. Findings: Examination limited by patient motion. Persistent high density involving the sulci of theright parietal lobe concerning for subarachnoid hemorrhage. Right occipital lobe hypodensity may represent white matter changes however given the patient's motion and underlying mass cannot be excluded. No comparison imaging available. Girard-white matter differentiation is maintained without evidence of an acute infarction. Multiple foci of decreased attenuation are present within the subcortical, deep cerebral, and periventricular white matter consistent with chronic small vessel/microangiopathic ischemic changes. No extra-axial mass or collection. The ventricles and sulci are prominent commensurate with involutional changes. The posterior fossa appears grossly normal. Sellar and suprasellar structures are normal. Orbital and periorbital soft tissues are normal. The paranasal sinuses, ethmoid air cells, and mastoid air cells are aerated. The bony calvarium is intact. Impression: Impression: Examination limited by patient motion. Findings concerning for subarachnoid hemorrhage along the right parietal lobe. Hypodensity within the right occipital lobe is likely white matter disease however an underlying mass cannot be excluded. Findings were discussed with TRUDI Reid at 5:25 p.m. on 01/01/2024 Electronically Signed: Yemi Thomas MD 01/01/2024 5:25 PM EST Workstation ID: [id number] FL C Arm During Surgery [[id number]] Resulted: 01/01/241450 Updated: 01/01/241450 Narrative: This procedure was auto-finalized with no dictation required. Assessment: Subarachnoid hemorrhage questionable cause. Seizure secondary to above Atrial fibrillation. Plan: Decrease Keppra to 250 mg twice daily. Decrease Valium down to 2.5 mg every 4 hours as needed for anxiety MRI brain with and without and MRA brain with and without. Comment: Without clear cause speculate that perhaps he had a minor fall and. Preop subarachnoid bleed. The lack of significant blood pressure increase with tender support this. Discussed with Dr. Hitchcock and Dr. Vee I discussed the patients findings and my recommendations with patient, family, nursing staff, primary care team, and consulting provider Malcom Contreras MD 01/02/24 11:22 EST documented in this encounter Nursing Notes * Brandon Pimentel PT - 01/07/2024 11:47 AM EST Goal Outcome Evaluation: Plan of Care Reviewed With: patient Progress: improving Outcome Evaluation: L foot pain improving alowing for increase ambulation. Anticipated Discharge Disposition (PT): inpatient rehabilitation facility * Tonia Stephens RN - 01/07/2024 7:29 AM EST Goal Outcome Evaluation: 00Plan of Care Reviewed With: patient UP in chair part of shift. Ambulating with walker to BR with steady gait. Voiding without difficulty. C/O ELLIS this AM, treated with tylenol. CM following for rehab. * Lorna Phelan RN - 01/06/2024 5:01 PM EST Goal Outcome Evaluation: Plan of Care Reviewed With: patient Progress: improving AOx4, VSS, RA, daughter at bedside, up with x1 assist, BM this shift, no c/o of pain Problem: Adult Inpatient Plan of Care Goal: Absence of Hospital-Acquired Illness or Injury Intervention: Identify and Manage Fall Risk Recent Flowsheet Documentation Taken 01/06/2024 1640 by Lorna Phelan RN Safety Promotion/Fall Prevention: safety round/check completed room organization consistent toileting scheduled nonskid shoes/slippers when out of bed mobility aid in reach gait belt lighting adjusted fall prevention program maintained elopement precautions clutter free environment maintained assistive device/personal items within reach activity supervised Taken 01/06/2024 1445 by Lorna Phelan RN Safety Promotion/Fall Prevention: safety round/check completed room organization consistent nonskid shoes/slippers when out of bed mobility aid in reach lighting adjusted gait belt fall prevention program maintained elopement precautions clutter free environment maintained assistive device/personal items within reach activity supervised Taken 01/06/2024 1245 by Lorna Phelan RN Safety Promotion/Fall Prevention: safety round/check completed room organization consistent nonskid shoes/slippers when out of bed muscle strengthening facilitated mobility aid in reach lighting adjusted gait belt fall prevention program maintained elopement precautions clutter free environment maintained assistive device/personal items within reach activity supervised Taken 01/06/2024 1052 by Lorna Phelan RN Safety Promotion/Fall Prevention: safety round/check completed room organization consistent nonskid shoes/slippers when out of bed mobility aid in reach lighting adjusted gait belt fall prevention program maintained elopement precautions clutter free environment maintained assistive device/personal items within reach activity supervised toileting scheduled Taken 01/06/2024 0916 by Lorna Phelan RN Safety Promotion/Fall Prevention: safety round/check completed room organization consistent nonskid shoes/slippers when out of bed mobility aid in reach lighting adjusted gait belt fall prevention program maintained elopement precautions clutter free environment maintained assistive device/personal items within reach activity supervised * Ember Johnson PT - 01/06/2024 2:56 PM EST Goal Outcome Evaluation: Plan of Care Reviewed With: patient, daughter Progress: improving Outcome Evaluation: Pt able to increase ambulation distance and required less assist for all mobility tasks this date. Pt will continue to benefit from PT to address ongoing strength, balance, and endurance deficits. * Tonia Stephens RN - 01/06/2024 4:53 AM EST Goal Outcome Evaluation: Plan of Care Reviewed With: patient A&OX4 AFIB on tele. Ambulating with nurse to and from bathroom with walker and steady gait. Neuro checks WNL. Voiding without difficulty. CM following for needs. * Radha Rogers RN - 01/05/2024 6:49 PM EST Goal Outcome Evaluation: Plan of Care Reviewed With: patient Progress: improving Pt aox4, vss, room air, ambulated with x1 assist-tolerated well, dsg cdi, scds on, c/o pain in right foot-pt states he has gout has flare ups-md ordered meds and prn meds given for pain-pt states pain is some better, voiding spontaneously, meds given for bm-no results yet, up in chair this shift, karen navarro at bedside, plan is rehab possibly at [facility]. No changes this shift. IS encouraged... Problem: Adult Inpatient Plan of Care Goal: Absence of Hospital-Acquired Illness or Injury Intervention: Identify and Manage Fall Risk Recent Flowsheet Documentation Taken 01/05/20241814 by Radha RogersTRUDI Safety Promotion/Fall Prevention: gait belt activity supervised safety round/check completed Taken 01/05/2024 1719 by Radha Rogers RN Safety Promotion/Fall Prevention: activity supervised safety round/check completed gait belt Taken 01/05/2024 1610 by Radha Rogers RN Safety Promotion/Fall Prevention: activity supervised safety round/check completed gait belt Taken 01/05/2024 1422 by Radah Rogers RN Safety Promotion/Fall Prevention: assistive device/personal items within reach activity supervised safety round/check completed gait belt Taken 01/05/2024 1207 by Radha Rogers RN Safety Promotion/Fall Prevention: safety round/check completed Taken 01/05/2024 1030 by Radha Rogers RN Safety Promotion/Fall Prevention: activity supervised safety round/check completed Taken 01/05/2024 0855 by Radha Rogers RN Safety Promotion/Fall Prevention: activity supervised safety round/check completed gait belt Problem: Adult Inpatient Plan of Care Goal: Absence of Hospital-Acquired Illness or Injury Intervention: Prevent Skin Injury Recent Flowsheet Documentation Taken 01/05/2024 1815 by Radha Rogers RN Body Position: (up in chair) legs elevated Skin Protection: adhesive use limited tubing/devices free from skin contact incontinence pads utilized Taken 01/05/2024 1719 by Radha Rogers RN Body Position: weight shifting Skin Protection: adhesive use limited incontinence pads utilized tubing/devices free from skin contact Taken 01/05/2024 1610 by Radha Rogers RN Body Position: weight shifting Skin Protection: adhesive use limited tubing/devices free from skin contact Taken 01/05/2024 1422 by Radha Rogers RN Body Position: position changed independently Skin Protection: adhesive use limited tubing/devices free from skin contact incontinence pads utilized Taken 01/05/2024 1207 by Radha Rogers RN Body Position: weight shifting legs elevated Skin Protection: adhesive use limited incontinence pads utilized tubing/devices free from skin contact Taken 01/05/2024 1030 by Radha Rogers RN Body Position: weight shifting legs elevated Skin Protection: adhesive use limited tubing/devices free from skin contact Taken 01/05/2024 0855 by Radha Rogers RN Body Position: (up to chair) position changed independently Skin Protection: adhesive use limited incontinence pads utilized tubing/devices free from skin contact Problem: Adult Inpatient Plan of Care Goal: Absence of Hospital-Acquired Illness or Injury Intervention: Prevent and Manage VTE (Venous Thromboembolism) Risk Recent Flowsheet Documentation Taken 01/05/2024 1815 by Radha Rogers RN Activity Management: up in chair VTE Prevention/Management: bilateral sequential compression devices on Taken 01/05/2024 1719 by Radha Rogers RN Activity Management: up in chair VTE Prevention/Management: bilateral sequential compression devices on Taken 01/05/2024 1610 by Radha Rogers RN Activity Management: ambulated to bathroom VTE Prevention/Management: bilateral sequential compression devices on Taken 01/05/2024 1422 by Radha Rogers RN Activity Management: up in chair ambulated to bathroom VTE Prevention/Management: bilateral sequential compression devices on Taken 01/05/2024 1207 by Radha Rogers RN Activity Management: up in chair VTE Prevention/Management: bilateral sequential compression devices on Taken 01/05/2024 1030 by Radha Rogers RN Activity Management: up in chair Taken 01/05/2024 0855 by Radha Rogers RN Activity Management: ambulated to bathroom VTE Prevention/Management: bilateral sequential compression devices on * Brandon Pimentel PT - 01/05/2024 11:29 AM EST 1029Goal Outcome Evaluation: Plan of Care Reviewed With: patient Progress: improving Outcome Evaluation: Patient's gait continues to be limited by c/o L foot pain. He was still able toparticipate in some ambulation activities in hallway Anticipated Discharge Disposition (PT): inpatient rehabilitation facility * Radha Rogers RN - 01/04/2024 6:49 PM EST Goal Outcome Evaluation: Plan of Care Reviewed With: patient, daughter Progress: improving Pt aox4, vss, room air, dsg intact on lower back-small drainage present, scds on, no c/o pain-just stiffness per patient, ambulated with nursing staff and PT -tolerated well, plan is rehab [facility]. No changes this shift.. Problem: Adult Inpatient Plan of Care Goal: Absence of Hospital-Acquired Illness or Injury Intervention: Identify and Manage Fall Risk Recent Flowsheet Documentation Taken 01/04/2024 1730 by Rahda Rogers RN Safety Promotion/Fall Prevention: activity supervised toileting scheduled safety round/check completed Taken 01/04/2024 1219 by Radha Rogers RN Safety Promotion/Fall Prevention: activity supervised safety round/check completed Problem: Adult Inpatient Plan of Care Goal: Absence of Hospital-Acquired Illness or Injury Intervention: Prevent Skin Injury Recent Flowsheet Documentation Taken 01/04/2024 1219 by Radha Rogers RN Body Position: weight shifting Skin Protection: adhesive use limited incontinence pads utilized tubing/devices free from skin contact Problem: Adult Inpatient Plan of Care Goal: Absence of Hospital-Acquired Illness or Injury Intervention: Prevent and Manage VTE (Venous Thromboembolism) Risk Recent Flowsheet Documentation Taken 01/04/2024 1730 by Radha Rogers, RN Activity Management: ambulated to bathroom VTE Prevention/Management: bilateral sequential compression devices on Taken 01/04/2024 1219 by Radha Rogers RN Activity Management: up in chair VTE Prevention/Management: bilateral sequential compression devices on * Dannielle Orellana, PT - 01/04/2024 9:54 AM EST Goal Outcome Evaluation: Plan of Care Reviewed With: patient, daughter Progress: improving Outcome Evaluation: Patient with significant improvement in pain control and mobility today. He wasable to ambulate in mahajan with FWW, however had multiple losses in balance requiring modA at times to correct. Encouraged frequent ambulation with nursing staff and initiated HEP. Continue to recommend D/C to IPR as patient is a high fall risk and unable to mobilize safely on his own at this time. Anticipated Discharge Disposition (PT): inpatient rehabilitation facility * Radha Rogers RN - 01/03/2024 6:42 PM EST Goal Outcome Evaluation: Plan of Care Reviewed With: patient, family Progress: improving Pt aox4, vss, room air, up with assist x 2, seals dc'd, family at bedside, up in chair, scds, dsg with dried drainage-intact, no c/o pain, denies numbness/tingling, seizure precautions in place, no changes this shift. Plan is [facility] rehab [facility] per OT recommendations. Problem: Adult Inpatient Plan of Care Goal: Absence of Hospital-Acquired Illness or Injury Intervention: Identify and Manage Fall Risk Recent Flowsheet Documentation Taken 01/03/2024 183 by Radha Rogers RN Safety Promotion/Fall Prevention: activity supervised safety round/check completed Problem: Adult Inpatient Plan of Care Goal: Absence of Hospital-Acquired Illness or Injury Intervention: Prevent Skin Injury Recent Flowsheet Documentation Taken 01/03/2024 1834 by Radha Rogers RN Body Position: weight shifting position changed independently Skin Protection: adhesive use limited tubing/devices free from skin contact incontinence pads utilized Taken 01/03/2024 1455 by Radha Rogers RN Skin Protection: adhesive use limited tubing/devices free from skin contact incontinence pads utilized Problem: Adult Inpatient Plan of Care Goal: Absence of Hospital-Acquired Illness or Injury Intervention: Prevent and Manage VTE (Venous Thromboembolism) Risk Recent Flowsheet Documentation Taken 01/03/2024 1834 by Radha Rogers RN Activity Management: up in chair VTE Prevention/Management: bilateral sequential compression devices off patient refused intervention Taken 01/03/2024 1257 by Radha Rogers RN VTE Prevention/Management: bilateral sequential compression devices on * Hank Hitchcock MD - 01/03/2024 3:59 PM EST I examined the patient this afternoon. He is looking much better and back to baseline. He does endorse having had a fall a few days prior to his surgery. I think this is combination with his anticoagulation was the cause of his SAH. Clinically, he is doing well. Denies back or leg pain. I suspect he will need inpatient rehab, but will defer to PT for evaluation. He is medically ready for discharge. We will continue him on keppra and hold his Xarelto until 7 days after surgery. * Rocio Wilson OT - 01/03/2024 1:15 PM EST Problem: Adult Inpatient Plan of Care Goal: Plan of Care Review Recent Flowsheet Documentation Taken 01/03/2024 1450 by Rocio Wilson OT Progress: improving Plan of Care Reviewed With: patient family Outcome Evaluation: OT eval complete. Pt presents w/ deficits in balance, strength, and functional endurance warranting cont skilled IPOT POC to promote return to PLOF. Recommend pt DC to IP rehab. Goal Outcome Evaluation: * Catalina Guadarrama, PT - 01/03/2024 7:46 AM EST Goal Outcome Evaluation: Plan of Care Reviewed With: patient, daughter Outcome Evaluation: PT evaluation completed. Pt is currently below baseline levels of mobility and demonstrating generalized weakness, decreased balance, limited activity tolerance, and increased pain with mobility warranting IP PT services to address deficits and facilitate return to PLOF. Recommend IRF pending progress. Anticipated Discharge Disposition (PT): inpatient rehabilitation facility * Hank Hitchcock MD - 01/01/2024 6:03 PM EST Patient underwent and uneventful L3-4 laminectomy today. In PACU, he had a tonic clonic seizure event lasting approximately 45 seconds that aborted on its own. I did not see this occur. Upon my evaluation, the patient was not answering questions appropriately, but his eyes were open and pupils were3 mm, reactive bilaterally. He was not following commands, but moving all 4 extremities with good strength. BMP showed a normal sodium. He was transferred to the ICU where he had another event lasting 45 seconds that aborted on its own. I again did not witness this first hand. I spoke to the ICU attending. We loaded him with keppra and placed him on continuous EEG. Head CT has significant motion a rtifact, but there is concern for a right parietal SAH of unknown etiology. We will plan for a repeat head CT and CTA tomorrow morning. If the patient continues to have seizures, would recommend neurology consult overnight. Otherwise, we will consult them in the morning. * Jessi Niño RN - 01/01/2024 3:23 PM ESTSummary: Seizure in PACU Pt arrived restless, turning to the left, not able to orient pt, pt states nidhi when asked his name. Asked if he needs to pee, states no. Asked where he is going, states bathroom. Significant tic/startle like reflex noted 2-4 per min, pt appears anxious with pursed lip exhale each occurrence. From arrival at 1501 to 1512 pt increasingly restless and ticking then began to contort head and arch body to the left progressing to a full tonic clonic seizure at 1513. Pt required jaw thrust and OPA insertion to maintain airway. Dr Andrade and Dr Sullivan to bedside as seizure was subsiding at 1514/1515. Dr Hitchcock to bedside soon after. Orders to transfer to neuro ICU. documented in this encounter OR Notes * Op Note - Hank Hitchcock MD - 01/01/2024 1:52 PM EST Date of operation: January 01, 2020: Attending surgeon: Dr. Hank Hitchcock MD Surgical Assistance: MARTHA Koch Preoperative diagnosis: Lumbar stenosis at L3-4 Postoperative diagnosis: The same Operations performed: 1. Lumbar laminectomy with bilateral medial facetectomies at L3-4 Findings: Successful decompression of L3-4 Specimens: None Indications: Neurogenic claudication Procedure in detail: The patient was brought back to the operating room and placed under general anesthesia. The patient was endotracheally intubated and was then positioned prone. All pressure points were padded well. At this time, we brought fluoroscopy into the field to localize an incision in the midline that correlated to the L3-4 level. This area was then prepped and draped in a sterile fashion. A timeout was performed, antibiotics were given and local anesthetic was injected into the incision marking. At this time, we incised the incision with a knife and using Bovie cautery reflected the muscle off of the posterior aspect of the spine. We exposed the lamina and medial portion of the bilateral facets from L3 to L4. We then placed retractors and used fluoroscopy to confirm that we were at the appropriate level. At this time, using a combination of drills and Kerrisons we removed the lamina and medial one third of the bilateral facet joints at the L3-4 level. We then used curettes and Kerrisons to remove the ligament thus exposing the thecal sac. We continued our decompression in the area of our bony removal. We continued to trace out the nerve roots bilaterally to have good visualization and ensure that they were circumferentially decompressed. At this time we palpated with a dental to confirm that he had an adequate circumferential decompression. We then turned our attention to hemostasis. We achieved this with bipolar cautery and Gelfoam powder. We then turned our attention to the closure where the muscle was closed with interrupted 0 Vicryl stitches. The fascia was closed with interrupted 0 Vicryl stitches. The dermis was closed with interrupted inverted 3-0 Vicryl stitches and the skin with a monocryl stitch. Kenna Manley was present for all portions of the surgery and assisted with patient positioning, opening, retraction, suturing, and closing. At the end of the case all counts were correct x2 and there were no complications noted. * Brief Op Note - Hank Hitchcock MD - 01/01/2024 1:52 PM EST LUMBAR LAMINECTOMY DISCECTOMY DECOMPRESSION POSTERIOR 1-2 LEVELS Progress Note Santo Terrell 01/01/2024 Pre-op Diagnosis: Spinal stenosis of lumbar region, unspecified whether neurogenic claudication present [M48.061] Post-Op Diagnosis Codes: * Spinal stenosis of lumbar region, unspecified whether neurogenic claudication present [M48.061] Procedure/CPT?? Codes: Procedure(s): LUMBAR LAMINECTOMY L3-4 Surgeon(s): Hank Hitchcock MD Anesthesia: General Staff: Video Intern: Day Urena RN; Andreia Kolb RN Physician Quality Audit Representative: Kenna Manley PA-C Dishwasher Busser: Simba Kidd RT Scrub Person: Aleena Mauricio [employer] Worker: Sunday Adame; Gardenia Casillas Estimated Blood Loss: minimal Urine Voided: * No values recorded between 01/01/2024 1:31 PM and 01/01/2024 2:30 PM * Specimens: None Drains: Closed/Suction Drain 1 Inferior;Midline Back Accordion 10 Fr. (Active) Findings: Successful decompression of L3-4 Complications: None apparent Hank Hitchcock MD Date: 01/01/2024 Time: 14:32 EST documented in this encounter Miscellaneous Notes * Case Management/Social Work - Nidhi Bañuelos RN - 01/07/2024 2:01 PM EST Case Management Discharge Note Final Note: Pt has been approved to transfer to [facility]. Family will transport. Reportcan be called to [phone]. They have access to [employer] for the dc summary. Pt is in agreement withplan Selected Continued Care - Admitted Since 01/01/2024 Destination Coordination complete. Service Provider Selected Services Address Phone Fax Patient Preferred [address] [address] -- Internal Comment last updated by Stacey Kenney, TRUDI 01/06/2024 [id number] 01/06: [employer] started insurance precert today. Durable Medical Equipment No services have been selected for the patient. Dialysis/Infusion No services have been selected for the patient. Home Medical Care No services have been selected for the patient. Therapy No services have been selected for the patient. Community Resources No services have been selected for the patient. Community & DME No services have been selected for the patient. Final Discharge Disposition Code: 03 - fpc facility (SNF) * Therapy Treatment Note - Brandon Pimentel, PT - 01/07/2024 11:47 AM EST Patient Name: Santo Terrell : 1945 Today's Date: 01/07/2024 Admit Date: 01/01/2024 Visit Dx: ICD-10-CM ICD-9-CM 1. 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 Essential hypertension Abnormal echocardiogram Nonrheumatic mitral valve regurgitation Preoperative clearance Spinal stenosis of lumbar region with neurogenic claudication Lumbar stenosis Seizure Past Medical History: Diagnosis Date Allergies PHOLCODINE [...] 01/01/2024 Procedure: LUMBAR LAMINECTOMY L3-4; Surgeon: Hank Hitchcock MD; Location: [facility] BEDS AT [facility]; Service: Neurosurgery; Laterality: N/A; SHOULDER ARTHROSCOPY Right TEETH EXTRACTION General Information Row Name 01/07/24 1415 Physical Therapy Time and Intention Document Type discharge treatment -[place] Mode of Treatment physical therapy;individual therapy -[place] Row Name 01/07/24 1415 General Information Patient Profile Reviewed yes -[place] Existing Precautions/Restrictions fall;seizures -[place] Row Name 01/07/24 1415 Cognition Orientation Status (Cognition) oriented x 3 -[place] Row Name 01/07/24 1415 Safety Issues, Functional Mobility Impairments Affecting Function (Mobility) balance;strength;pain;endurance/activity tolerance -[place] Comment, Safety Issues/Impairments (Mobility) alert, following commands -[place] User Oliver (r) = Recorded By, (t) = Taken By, (c) = Cosigned By Initials Name Provider Type [place] Brandon Pimentel, PT Physical Therapist Mobility [facility] Name 01/07/24 141 Bed Mobility Comment, (Bed Mobility) uic -[facility] Name 01/07/24 141 Sit-Stand Transfer Sit-Stand [place] (Transfers) verbal cues;standby assist -[place] Assistive Device (Sit-Stand Transfers) walker, front-wheeled -[facility] Name 01/07/24 141 Gait/Stairs (Locomotion) [place] Level (Gait) standby assist -[place] Assistive Device (Gait) walker, front-wheeled -[place] Distance in Feet (Gait) 600 -[place] Deviations/Abnormal Patterns (Gait) gait speed decreased;left sided deviations;antalgic;weight shifting decreased -[place] Comment, (Gait/Stairs) Gt traiing focused on controling walker with upright posture. Demonstrated good control. nO lOB -[place] User Oliver (r) = Recorded By, (t) = Taken By, (c) = Cosigned By Initials Name Provider Type [place] Brandon Pimentel PT Physical Therapist Obj/Interventions [facility] Name 01/07/24 141 Balance Dynamic Standing Balance 1-person assist;standby assist -WI Position/Device Used, Standing Balance supported;walker, rolling -WI User Oliver (r) = Recorded By, (t) = Taken By, (c) = Cosigned By Initials Name Provider Type WI Brandon Pimentel, PT Physical Therapist Goals/Plan No documentation. Clinical Impression [facility] 01/07/24 141 Pain Scale: FACES Pre/Post-Treatment Pain: FACES Scale, Pretreatment 2-->hurts little bit -WI Posttreatment Pain Rating 2-->hurts little bit -WI Pain Location - Side/Orientation Left -WI Pain Location - foot -[facility] Name 01/07/24 141 Plan of Care Review Plan of Care Reviewed With patient -WI Progress improving -WI Outcome Evaluation L foot pain improving alowing for increase ambulation. -[facility] Name 01/07/24 141 Therapy Assessment/Plan (PT) Rehab Potential (PT) good, to achieve stated therapy goals -WI Criteria for Skilled Interventions Met (PT) yes;meets criteria;skilled treatment is necessary -WI Therapy Frequency (PT) daily -SC Row Name 01/07/24 1417 Positioning and Restraints Pre-Treatment Position sitting in chair/recliner -WI Post Treatment Position chair -SC In Chair notified nsg;reclined;sitting;call light within reach;encouraged to call for assist -WI User Oliver (r) = Recorded By, (t) = Taken By, (c) = Cosigned By Initials Name Provider Type WI Brandon Pimentel, PT Physical Therapist Outcome Measures Row Name 01/07/24 1418 01/07/24 0816 How much help from another person do you currently need... Turning from your back to your side while in flat bed without using bedrails? 4 -WI 3 -LB Moving from lying on back to sitting on the side of a flat bed without bedrails? 4 -SC 3 -LB Moving to and from a bed to a chair (including a wheelchair)? 4 -SC 3 -LB Standing up from a chair using your arms (e.g., wheelchair, bedside chair)? 3 - WI 3 -LB Climbing 3-5 steps with a railing? 3 -WI 3 -LB To walk in hospital room? 3 -WI 3 -LB AM-PAC 6 Clicks Score (PT) 21 -WI 18 -LB Highest Level of Mobility Goal 6 --> Walk 10 steps or more -WI 6 --> Walk 10 steps or more -LB Row Name 01/07/24 1418 Functional Assessment Outcome Measure Options AM-PAC 6 Clicks Basic Mobility (PT) -WI User Oliver (r) = Recorded By, (t) = Taken By, (c) = Cosigned By Initials Name Provider Type WI Brandon Pimentel, PT Physical Therapist Lorna St RN Registered Nurse Physical Therapy Education Title: PT OT CERTIFIED BREASTFEEDING EDUCATOR Therapies (In Progress) Topic: Physical Therapy (Done) Point: Mobility training (Done) Learning Progress Summary Patient Eager, E, VU by LAURA at 01/07/2024 1418 Comment: reviewed benefits of activity Acceptance, E, VU by KR at 01/06/2024 1553 Eager, E, VU by SC at 01/05/2024 1129 Comment: reviewed HEp Acceptance, E, VU by CK at 01/04/2024 1118 Acceptance, E, VU by CHUY at 01/03/2024 0942 Family Acceptance, E, VU by KR at 01/06/2024 1553 Acceptance, E, VU by CK at 01/04/2024 1118 Point: Home exercise program (Done) Learning Progress Summary Patient Eager, E, VU by WI at 01/07/2024 1418 Comment: reviewed benefits of activity Acceptance, E, VU by KR at 01/06/2024 1553 Eager, E, VU by SC at 01/05/2024 1129 Comment: reviewed HEp Acceptance, E, VU by CK at 01/04/2024 1118 Family Acceptance, E, VU by KR at 01/06/2024 1553 Acceptance, E, VU by CK at 01/04/2024 1118 Point: Body mechanics (Done) Learning Progress Summary Patient Eager, E, VU by WI at 01/07/2024 1418 Comment: reviewed benefits of activity Acceptance, E, VU by KR at 01/06/2024 1553 Eager, E, VU by SC at 01/05/2024 1129 Comment: reviewed HEp Acceptance, E, VU by CK at 01/04/2024 1118 Acceptance, E, VU by ND at 01/03/2024 0942 Family Acceptance, E, VU by KR at 01/06/2024 1553 Acceptance, E, VU by CK at 01/04/2024 1118 Point: Precautions (Done) Learning Progress Summary Patient Eager, E, VU by WI at 01/07/2024 1418 Comment: reviewed benefits of activity Acceptance, E, VU by KR at 01/06/2024 1553 Eager, E, VU by SC at 01/05/2024 1129 Comment: reviewed HEp Acceptance, E, VU by CK at 01/04/2024 1118 Acceptance, E, VU by ND at 01/03/2024 0942 Family Acceptance, E, VU by KR at 01/06/2024 1553 Acceptance, E, VU by CK at 01/04/2024 1118 User Oliver Initials Effective Dates Name Provider Type Discipline [place] 12/14/22 - Brandon Pimentel, PT Physical Therapist PT [place] 12/17/23 - Dannielle Orellana, PT Physical Therapist PT [place] 11/09/22 - Ember Johnson, PT Physical Therapist PT [place] 09/26/23 - Caatlina Guadarrama, PT Physical Therapist PT PT Recommendation and Plan Plan of Care Reviewed With: patient Progress: improving Outcome Evaluation: L foot pain improving alowing for increase ambulation. Time Calculation: PT Charges Row Name 01/07/24 1147 Time Calculation Start Time 1147 -WI PT Received On 01/07/24 -WI PT Goal Re-Cert Due Date 01/13/24 -WI Timed Charges 45915 - Gait Training Minutes 20 -SC Total Minutes Timed Charges Total Minutes 20 -SC Total Minutes 20 -SC User Oliver (r) = Recorded By, (t) = Taken By, (c) = Cosigned By Initials Name Provider Type SC Brandon Pimentel PT Physical Therapist Therapy Charges for Today Code Description Service Date Service Provider Modifiers Qty [id number] HC GAIT TRAINING EA 15 MIN 01/07/2024 Brandon Pimentel PT GP 1 PT G-Codes Outcome Measure Options: AM-PAC 6 Clicks Basic Mobility (PT) AM-PAC 6 Clicks Score (PT): 21 AM-PAC 6 Clicks Score (OT): 15 PT Discharge Summary Anticipated Discharge Disposition (PT): inpatient rehabilitation facility Brandon Pimentel PT 01/07/2024 * Therapy Treatment Note - Ember Johnson, PT - 01/06/2024 2:56 PM EST Images from the original note were not included. Patient Name: Santo Terrell : 1945 Today's Date: 01/06/2024 Admit Date: 01/01/2024 Visit Dx: ICD-10-CM ICD-9-CM 1. 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 Essential hypertension Abnormal echocardiogram Nonrheumatic mitral valve regurgitation Preoperative clearance Spinal stenosis of lumbar region with neurogenic claudication Lumbar stenosis Seizure Past Medical History: Diagnosis Date Allergies PHOLCODINE [...] 01/01/2024 Procedure: LUMBAR LAMINECTOMY L3-4; Surgeon: Hank Hitchcock MD; Location: [facility]EDS [facility]; Service: Neurosurgery; Laterality: N/A; SHOULDER ARTHROSCOPY Right TEETH EXTRACTION General Information Row Name 01/06/24 1533 Physical Therapy Time and Intention Document Type therapy note (daily note) -KR Mode of Treatment physical therapy;individual therapy -KR Row Name 01/06/24 153 General Information Patient Profile Reviewed yes -KR Existing Precautions/Restrictions fall;seizures -KR Barriers to Rehab medically complex -KR Row Name 01/06/24 153 Cognition Orientation Status (Cognition) oriented x 3 -KR Row Name 01/06/241532 Safety Issues, Functional Mobility Safety Issues Affecting Function (Mobility) insight into deficits/self- awareness;safety precaution awareness -KR Impairments Affecting Function (Mobility) balance;strength;pain;endurance/activity tolerance -KR User Oliver (r) = Recorded By, (t) = Taken By, (c) = Cosigned By Initials Name Provider Type Ember Verde PT Physical Therapist Mobility Row Name 01/06/24 153 Sit-Stand Transfer Sit-Stand [place] (Transfers) verbal cues;standby assist -KR Assistive Device (Sit-Stand Transfers) walker, front-wheeled -KR Comment, (Sit-Stand Transfer) 2x from chair, 1x from toilet, + addt'l 5x STS from chair. -KR Row Name 01/06/24 153 Gait/Stairs (Locomotion) [place] Level (Gait) standby assist -KR Assistive Device (Gait) walker, front-wheeled -KR Distance in Feet (Gait) 480 -KR Deviations/Abnormal Patterns (Gait) gait speed decreased;left sided deviations;antalgic;weight shifting decreased -KR Bilateral Gait Deviations forward flexed posture -KR Left Sided Gait Deviations weight shift ability decreased;heel strike decreased -KR Comment, (Gait/Stairs) cues for proximity to walker and upright posture. -KR User Oliver (r) = Recorded By, (t) = Taken By, (c) = Cosigned By Initials Name Provider Type KR Alex, Ember, PT Physical Therapist Obj/Interventions Row Name 01/06/24 1534 Motor Skills Therapeutic Exercise hip -KR Row Name 01/06/24 1534 Hip (Therapeutic Exercise) Hip (Therapeutic Exercise) strengthening exercise -KR Hip Strengthening (Therapeutic Exercise) 10 repetitions;bilateral;marching while standing -KR Row Name 01/06/24 1534 Balance Balance Assessment sitting static balance;sitting dynamic balance;standing static balance;standing dynamic balance -KR Static Sitting Balance independent -KR Dynamic Sitting Balance standby assist -KR Position, Sitting Balance unsupported;sitting in chair;other (see comments) toilet -KR Static Standing Balance standby assist -KR Dynamic Standing Balance standby assist -KR Position/Device Used, Standing Balance supported;walker, front-wheeled -KR Balance Interventions sitting;standing;sit to stand;supported;static;dynamic -KR User Oliver (r) = Recorded By, (t) = Taken By, (c) = Cosigned By Initials Name Provider Type KR Ember Johnson, PT Physical Therapist Goals/Plan No documentation. Clinical Impression Row Name 01/06/24 1540 Pain Pain Intervention(s) Repositioned;Ambulation/increased activity -KR Additional Documentation Pain Scale: FACES Pre/Post-Treatment (Group) -KR Row Name 01/06/24 1540 Pain Scale: FACES Pre/Post-Treatment Pain: FACES Scale, Pretreatment 4-->hurts little more -KR Posttreatment Pain Rating 2-->hurts little bit -KR Pain Location - Side/Orientation Left -KR Pain Location - foot -KR Row Name 01/06/24 1540 Plan of Care Review Plan of Care Reviewed With patient;daughter -KR Progress improving -KR Outcome Evaluation Pt able to increase ambulation distance and required less assist for all mobility tasks this date. Pt will continue to benefit from PT to address ongoing strength, balance, and endurance deficits. -KR Row Name 01/06/24 1540 Vital Signs Pre Patient Position Sitting -KR Intra Patient Position Standing -KR Post Patient Position Sitting -KR Row Name 01/06/24 1540 Positioning and Restraints Pre-Treatment Position sitting in chair/recliner -KR Post Treatment Position chair -KR In Chair notified nsg;reclined;call light within reach;encouraged to call for assist;exit alarm on;with family/caregiver;waffle cushion;legs elevated;on mechanical lift sling -KR User Oliver (r) = Recorded By, (t) = Taken By, (c) = Cosigned By Initials Name Provider Type Ember Verde, VIDYA Physical Therapist Outcome Measures Row Name 01/06/24 1553 01/06/24 0916 How much help from another person do you currently need... Turning from your back to your side while in flat bed without using bedrails? 3 -KR 3 -LB Moving from lying on back to sitting on the side of a flat bed without bedrails? 3 -KR 3 -LB Moving to and from a bed to a chair (including a wheelchair)? 3 -KR 3 -LB Standing up from a chair using your arms (e.g., wheelchair, bedside chair)? 3 - KR 3 -LB Climbing 3-5 steps with a railing? 3 -KR 3 -LB To walk in hospital room? 3 -KR 3 -LB AM-PAC 6 Clicks Score (PT) 18 -KR 18 -LB Highest Level of Mobility Goal 6 --> Walk 10 steps or more -KR 6 --> Walk 10 steps or more -LB User Oliver (r) = Recorded By, (t) = Taken By, (c) = Cosigned By Initials Name Provider Type Lorna St RN Registered Nurse Ember Verde, PT Physical Therapist Physical Therapy Education Title: PT OT CERTIFIED BREASTFEEDING EDUCATOR Therapies (In Progress) Topic: Physical Therapy (Done) Point: Mobility training (Done) Learning Progress Summary Patient Acceptance, E, VU by KR at 01/06/2024 1553 Eager, E, VU by SC at 01/05/2024 1129 Comment: reviewed HEp Acceptance, E, VU by CK at 01/04/2024 1118 Acceptance, E, VU by ND at 01/03/2024 0942 Family Acceptance, E, VU by KR at 01/06/2024 1553 Acceptance, E, VU by CK at 01/04/2024 1118 Point: Home exercise program (Done) Learning Progress Summary Patient Acceptance, E, VU by KR at 01/06/2024 1553 Eager, E, VU by SC at 01/05/2024 1129 Comment: reviewed HEp Acceptance, E, VU by CK at 01/04/2024 1118 Family Acceptance, E, VU by KR at 01/06/2024 1553 Acceptance, E, VU by CK at 01/04/2024 1118 Point: Body mechanics (Done) Learning Progress Summary Patient Acceptance, E, VU by KR at 01/06/2024 1553 Eager, E, VU by SC at 01/05/2024 1129 Comment: reviewed HEp Acceptance, E, VU by CK at 01/04/2024 1118 Acceptance, E, VU by ND at 01/03/2024 0942 Family Acceptance, E, VU by KR at 01/06/2024 1553 Acceptance, E, VU by CK at 01/04/2024 1118 Point: Precautions (Done) Learning Progress Summary Patient Acceptance, E, VU by KR at 01/06/2024 155 Eager, E, VU by SC at 01/05/2024 1129 Comment: reviewed HEp Acceptance, E, VU by CK at 01/04/2024 1118 Acceptance, E, VU by ND at 01/03/2024 0942 Family Acceptance, E, VU by KR at 01/06/2024 1553 Acceptance, E, VU by CK at 01/04/2024 1118 User Oliver Initials Effective Dates Name Provider Type Discipline [place] 12/14/22 - Brandon Pimentel, PT Physical Therapist PT 12/17/23 - Dannielle Orellana, PT Physical Therapist PT 11/09/22 - Ember Johnson, PT Physical Therapist PT [place] 09/26/23 - Catalina Guadarrama, PT Physical Therapist PT PT Recommendation and Plan Plan of Care Reviewed With: patient, daughter Progress: improving Outcome Evaluation: Pt able to increase ambulation distance and required less assist for all mobility tasks this date. Pt will continue to benefit from PT to address ongoing strength, balance, and endurance deficits. Time Calculation: PT Charges Row Name 01/06/244 Time Calculation Start Time 1456 -KR PT Received On 01/06/24 -KR Timed Charges 67165 - PT Therapeutic Exercise Minutes 5 -KR 25866 - PT Therapeutic Activity Minutes 18 -KR Total Minutes Timed Charges Total Minutes 23 -KR Total Minutes 23 -KR User Oliver (r) = Recorded By, (t) = Taken By, (c) = Cosigned By Initials Name Provider Type Ember Verde, PT Physical Therapist Therapy Charges for Today Code Description Service Date Service Provider Modifiers Qty [id number] PT THER PROC EA 15 MIN 01/06/2024 Ember Johnson, PT GP 1 [id number] PT THERAPEUTIC ACT EA 15 MIN 01/06/2024 Ember Johnson PT GP 1 PT G-Codes Outcome Measure Options: AM-PAC 6 Clicks Basic Mobility (PT) AM-PAC 6 Clicks Score (PT): 18 AM-PAC 6 Clicks Score (OT): 15 Ember Johnson PT 01/06/2024 * Case Management/Social Work - Stacey Kenney RN - 01/06/2024 11:52 AM EST Continued Stay Note [place] Patient Name: Santo Terrell Today's Date: 01/06/2024 Admit Date: 01/01/2024 Plan: Skilled Rehab Discharge Plan Row Name 01/06/24 1150 Plan Plan Skilled Rehab Patient/Family in Agreement with Plan yes Plan Comments Plant Quality Manager spoke with pt and his daughter, at the bedside. PT/OT recommended skilled rehab. Pt would really like to be somewhere in [place]. They would like referrals to [facility] [place], and [place]. Plant Quality Manager spoke with Ina/Vonnie, she is unsure that they are in network. She requested fax all information today. CM let [facility] know pt is medically ready . Information faxed, confirmed fax number in [facility]. BRENDON spoke with Sagr[facility], on the phone. She will review in [facility]. CM did not make referral to [place], as of today, since pt prefers [place]. Plant Quality Manager will continue to follow. [phone]-Sagrario/[facility] called [facility] and stated she has a private bed available for pt. BRENDON spoke with pt's daughter, on the phone, pt and daughter are agreeable. Sagrario will start insurance precert today. Final Discharge Disposition Code 03 - fpc facility (SNF) Discharge Codes No documentation. Expected Discharge Date and Time Expected Discharge Date Expected Discharge Time Jan 08, 2024 Stacey Saul Kenney, RN * Therapy Treatment Note - Loren Brandon Alona, PT - 01/05/2024 11:29 AM EST Patient Name: Santo Terrell : 1945 Today's Date: 01/05/2024 Admit Date: 01/01/2024 Visit Dx: ICD-10-CM ICD-9-CM 1. 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 Essential hypertension Abnormal echocardiogram Nonrheumatic mitral valve regurgitation Preoperative clearance Spinal stenosis of lumbar region with neurogenic claudication Lumbar stenosis Seizure Past Medical History: Diagnosis Date Allergies PHOLCODINE [...] 01/01/2024 Procedure: LUMBAR LAMINECTOMY L3-4; Surgeon: Hank Hitchcock MD; Location: [facility]; Service: Neurosurgery; Laterality: N/A; SHOULDER ARTHROSCOPY Right TEETH EXTRACTION General Information Row Name 01/05/24 1122 Physical Therapy Time and Intention Document Type therapy note (daily note) -WI Mode of Treatment physical therapy;individual therapy -WI Row Name 01/05/24 1122 General Information Patient Profile Reviewed yes -WI Existing Precautions/Restrictions fall;seizures -WI Row Name 01/05/24 112 Cognition Orientation Status (Cognition) oriented x 3 -WI Row Name 01/05/24 112 Safety Issues, Functional Mobility Impairments Affecting Function (Mobility) balance;strength;pain;postural/trunk control;endurance/activity tolerance -WI Comment, Safety Issues/Impairments (Mobility) alert, following commands -WI User Oliver (r) = Recorded By, (t) = Taken By, (c) = Cosigned By Initials Name Provider Type WI Brandon Pimentel PT Physical Therapist Mobility Row Name 01/05/241122 Bed Mobility Comment, (Bed Mobility) uic [facility] Row Name 01/05/241122 Transfers Comment, (Transfers) cues for hand placement. Able to get to standing without assistance -WI Row Name 01/05/241122 Sit-Stand Transfer Sit-Stand Edmunds (Transfers) verbal cues;standby assist -WI Assistive Device (Sit-Stand Transfers) walker, front-wheeled -WI Row Name 01/05/241122 Gait/Stairs (Locomotion) [place] Level (Gait) 1 person assist;contact guard;verbal cues -WI Assistive Device (Gait) walker, front-wheeled -WI Deviations/Abnormal Patterns (Gait) gait speed decreased;left sided deviations;antalgic;weight shifting decreased -WI Bilateral Gait Deviations forward flexed posture -WI Left Sided Gait Deviations weight shift ability decreased;heel strike decreased -WI Comment, (Gait/Stairs) Gt training focused on controling walker in hallway. Encouraged upright posture frequently. c/o L foot pain throught session limiting distance. Rn aware -WI User Oliver (r) = Recorded By, (t) = Taken By, (c) = Cosigned By Initials Name Provider Type WI Brandon Pimentel PT Physical Therapist Obj/Interventions [facility] Name 01/05/241124 Motor Skills Therapeutic Exercise hip;knee;ankle -[facility] 01/05/24 [facility] Hip (Therapeutic Exercise) Hip (Therapeutic Exercise) AROM (active range of motion) -WI Hip Isometrics (Therapeutic Exercise) bilateral;flexion;extension;aBduction;aDduction;10 repetitions -[facility] Name 01/05/241124 Ankle (Therapeutic Exercise) Ankle (Therapeutic Exercise) AROM (active range of motion) -WI Ankle AROM (Therapeutic Exercise) bilateral;dorsiflexion;plantarflexion;10 repetitions -[facility] Name 01/05/24 [facility] Balance Balance Assessment standing dynamic balance -WI Dynamic Standing Balance 1-person assist;contact guard;verbal cues -WI Position/Device Used, Standing Balance supported;walker, rolling -WI Comment, Balance unsteady -WI User Oliver (r) = Recorded By, (t) = Taken By, (c) = Cosigned By Initials Name Provider Type WI Brandon Pimentel, PT Physical Therapist Goals/Plan No documentation. Clinical Impression Row Name 01/05/24 1125 Pain Pretreatment Pain Rating 7/10 -WI Posttreatment Pain Rating 9/10 -WI Pain Location - Side/Orientation Left -WI Pain Location - foot -WI Pre/Posttreatment Pain Comment anterior 1st ray and tarsal jt -WI Pain Intervention(s) Cold applied -WI Row Name 01/05/24 1125 Plan of Care Review Plan of Care Reviewed With patient -WI Progress improving -WI Outcome Evaluation Patient's gait continues to be limited by c/o L foot pain. He was still able to participate in some ambulation activities in hallway -WI Row Name 01/05/24 1125 Therapy Assessment/Plan (PT) Rehab Potential (PT) good, to achieve stated therapy goals -WI Criteria for Skilled Interventions Met (PT) yes;meets criteria;skilled treatment is necessary -WI Therapy Frequency (PT) daily -WI Row Name 01/05/24 1125 Positioning and Restraints Pre-Treatment Position sitting in chair/recliner -WI Post Treatment Position chair -WI In Chair notified nsg;reclined;sitting;call light within reach;encouraged to call for assist;with family/caregiver;exit alarm on -WI User Oliver (r) = Recorded By, (t) = Taken By, (c) = Cosigned By Initials Name Provider Type WI Brandon Pimentel, PT Physical Therapist Outcome Measures Row Name 01/05/24 1129 01/05/24 0855 How much help from another person do you currently need... Turning from your back to your side while in flat bed without using bedrails? 3 -WI 3 -AP Moving from lying on back to sitting on the side of a flat bed without bedrails? 3 -WI 3 -AP Moving to and from a bed to a chair (including a wheelchair)? 3 -WI 3 -AP Standing up from a chair using your arms (e.g., wheelchair, bedside chair)? 3 - WI 3 -AP Climbing 3-5 steps with a railing? 3 -WI 2 -AP To walk in hospital room? 3 -WI 3 -AP AM-PAC 6 Clicks Score (PT) 18 -WI 17 -AP Highest Level of Mobility Goal 6 --> Walk 10 steps or more -WI 5 --> Static standing - Row Name 01/05/24 112 Functional Assessment Outcome Measure Options AM-PAC 6 Clicks Basic Mobility (PT) -WI User Oliver (r) = Recorded By, (t) = Taken By, (c) = Cosigned By Initials Name Provider Type WI Brandon Pimentel, PT Physical Therapist Radha Yip, RN Registered Nurse Physical Therapy Education Title: PT OT CERTIFIED BREASTFEEDING EDUCATOR Therapies (In Progress) Topic: Physical Therapy (Done) Point: Mobility training (Done) Learning Progress Summary Patient Eager, E, VU by WI at 01/05/2024 112 Comment: reviewed HEp Acceptance, E, VU by at 01/04/2024 1118 Acceptance, E, VU by ND at 01/03/2024 0942 Family Acceptance, E, VU by at 01/04/2024 111 Point: Home exercise program (Done) Learning Progress Summary Patient Eager, E, VU by WI at 01/05/2024 112 Comment: reviewed HEp Acceptance, E, VU by at 01/04/2024 1118 Family Acceptance, E, VU by CK at 01/04/2024 111 Point: Body mechanics (Done) Learning Progress Summary Patient Eager, E, VU by WI at 01/05/2024 112 Comment: reviewed HEp Acceptance, E, VU by at 01/04/2024 1118 Acceptance, E, VU by ND at 01/03/2024 0942 Family Acceptance, E, VU by CK at 01/04/2024 1118 Point: Precautions (Done) Learning Progress Summary Patient Eager, E, VU by WI at 01/05/2024 112 Comment: reviewed HEp Acceptance, E, VU by at 01/04/2024 1118 Acceptance, E, VU by ND at 01/03/2024 0942 Family Acceptance, E, VU by at 01/04/2024 1118 User Oliver Initials Effective Dates Name Provider Type Discipline [place] 12/14/22 - Brandon Pimentel, PT Physical Therapist PT [place] 12/17/23 - Dannielle Orellana, PT Physical Therapist PT [place] 09/26/23 - Catalina Guadarrama, PT Physical Therapist PT PT Recommendation and Plan Plan of Care Reviewed With: patient Progress: improving Outcome Evaluation: Patient's gait continues to be limited by c/o L foot pain. He was still able toparticipate in some ambulation activities in hallway Time Calculation: PT Charges Row Name 01/05/24 1029 Time Calculation Start Time 1029 -WI PT Received On 01/05/24 -WI PT Goal Re-Cert Due Date 01/13/24 -WI Timed Charges 22381 - PT Therapeutic Exercise Minutes 5 -SC 42540 - Gait Training Minutes 15 -SC Total Minutes Timed Charges Total Minutes 20 -SC Total Minutes 20 -SC User Oliver (r) = Recorded By, (t) = Taken By, (c) = Cosigned By Initials Name Provider Type SC Brandon Pimentel, PT Physical Therapist Therapy Charges for Today Code Description Service Date Service Provider Modifiers Qty [id number] HC GAIT TRAINING EA 15 MIN 01/05/2024 Brandon Pimentel PT GP 1 PT G-Codes Outcome Measure Options: AM-PAC 6 Clicks Basic Mobility (PT) AM-PAC 6 Clicks Score (PT): 18 AM-PAC 6 Clicks Score (OT): 15 PT Discharge Summary Anticipated Discharge Disposition (PT): inpatient rehabilitation facility [facility] Pimentel PT 01/05/2024 * Therapy Treatment Note - Dannielle Orellana, PT - 01/04/2024 9:54 AM EST Images from the original note were not included. Patient Name: Santo Terrell : 1945 Today's Date: 01/04/2024 Admit Date: 01/01/2024 Visit Dx: ICD-10-CM ICD-9-CM 1. 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 Essential hypertension Abnormal echocardiogram Nonrheumatic mitral valve regurgitation Preoperative clearance Spinal stenosis of lumbar region with neurogenic claudication Lumbar stenosis Seizure Past Medical History: Diagnosis Date Allergies PHOLCODINE [...] 01/01/2024 Procedure: LUMBAR LAMINECTOMY L3-4; Surgeon: Hank Hitchcock MD; Location: [facility] BEDS AT [facility]; Service: Neurosurgery; Laterality: N/A; SHOULDER ARTHROSCOPY Right TEETH EXTRACTION General Information Row Name 01/04/24 1108 Physical Therapy Time and Intention Document Type therapy note (daily note) -CK Mode of Treatment physical therapy;individual therapy -CK Row Name 01/04/24 1108 General Information Patient Profile Reviewed yes -CK Existing Precautions/Restrictions fall;seizures -CK Barriers to Rehab medically complex -CK Row Name 01/04/24 110 Cognition Orientation Status (Cognition) oriented x 3 -CK Row Name 01/04/24 110 Safety Issues, Functional Mobility Safety Issues Affecting Function (Mobility) awareness of need for assistance;insight into deficits/self-awareness;safety precaution awareness;safety precautions follow-through/compliance -CK Impairments Affecting Function (Mobility) balance;strength;pain;postural/trunk control;endurance/activity tolerance -CK User Oliver (r) = Recorded By, (t) = Taken By, (c) = Cosigned By Initials Name Provider Type CK Dannielle Orellana, PT Physical Therapist Mobility Row Name 01/04/24 1109 Bed Mobility Bed Mobility supine-sit -CK Supine-Sit Edmunds (Bed Mobility) minimum assist (75% patient effort);1 person assist;verbal cues -CK Assistive Device (Bed Mobility) bed rails -CK Comment, (Bed Mobility) cues provided for logroll technique, patient demo'd good sequencing with this, Seth to lift trunk from HOB -CK Row Name 01/04/24 110 Sit-Stand Transfer Sit-Stand Edmunds (Transfers) contact guard;1 person assist;verbal cues -CK Assistive Device (Sit-Stand Transfers) walker, front-wheeled -CK Comment, (Sit-Stand Transfer) cues to push up from bed/grab bar in bathroom -CK Row Name 01/04/24 1109 Gait/Stairs (Locomotion) Edmunds Level (Gait) moderate assist (50% patient effort);1 person assist;verbal cues Seth with modA for LOBs -CK Assistive Device (Gait) walker, front-wheeled -CK Distance in Feet (Gait) 240 -CK Deviations/Abnormal Patterns (Gait) bilateral deviations;base of support, narrow;kenneth decreased;gait speed decreased;stride length decreased;scissoring -CK Bilateral Gait Deviations forward flexed posture;heel strike decreased -CK Comment, (Gait/Stairs) Patient ambulated in mahajan with a step through gait pattern, very narrow BALDEMAR scissoring at times causing LOBs requiring modA to correct. Otherwise he was grossly Seth for balance. Cues provided for upright posture with forward gaze, decreased weightbearing through BUEs on walker, wider BALDEMAR, and to step into walker as he tends to push walker too far in front of him. -CK User Oliver (r) = Recorded By, (t) = Taken By, (c) = Cosigned By Initials Name Provider Type CK Dannielle Orellana PT Physical Therapist Obj/Interventions Row Name 01/04/24 1113 Motor Skills Therapeutic Exercise hip;knee;ankle;other (see comments) abdominal sets x10 reps -CK Row Name 01/04/24 1113 Hip (Therapeutic Exercise) Hip (Therapeutic Exercise) isometric exercises -CK Hip Isometrics (Therapeutic Exercise) bilateral;gluteal sets;10 repetitions;3 second hold -CK Row Name 01/04/24 1113 Knee (Therapeutic Exercise) Knee (Therapeutic Exercise) isometric exercises -CK Knee Isometrics (Therapeutic Exercise) bilateral;gluteal sets;10 repetitions;3 second hold -CK Row Name 01/04/24 1113 Ankle (Therapeutic Exercise) Ankle (Therapeutic Exercise) AROM (active range of motion) -CK Ankle AROM (Therapeutic Exercise) bilateral;plantarflexion;dorsiflexion;10 repetitions -CK Row Name 01/04/24 1113 Balance Balance Assessment sitting static balance;standing static balance;standing dynamic balance -CK Static Sitting Balance standby assist -CK Position, Sitting Balance unsupported;sitting edge of bed;other (see comments) on toilet -CK Static Standing Balance contact guard -CK Dynamic Standing Balance moderate assist -CK Position/Device Used, Standing Balance supported;walker, front-wheeled -CK Comment, Balance unsteady on feet grossly Seth for ambulation with multiple LOBs requiring modA to correct -CK User Oliver (r) = Recorded By, (t) = Taken By, (c) = Cosigned By Initials Name Provider Type CK Dannielle Orellana PT Physical Therapist Goals/Plan No documentation. Clinical Impression Row Name 01/04/24 1114 Pain Pretreatment Pain Rating 0/10 - no pain -CK Posttreatment Pain Rating 0/10 - no pain -CK Row Name 01/04/24 1114 Plan of Care Review Plan of Care Reviewed With patient;daughter -CK Progress improving -CK Outcome Evaluation Patient with significant improvement in pain control and mobility today. He was able to ambulate in mahajan with FWW, however had multiple losses in balance requiring modA at times tocorrect. Encouraged frequent ambulation with nursing staff and initiated HEP. Continue to recommendD/C to IPR as patient is a high fall risk and unable to mobilize safely on his own at this time. -CK Row Name 01/04/24 1114 Vital Signs Pre Systolic BP Rehab 117 -CK Pre Treatment Diastolic BP 65 -CK Pretreatment Heart Rate (beats/min) 83 -CK Posttreatment Heart Rate (beats/min) 96 -CK Pre SpO2 (%) 92 -CK O2 Delivery Pre Treatment room air -CK O2 Delivery Intra Treatment room air -CK Post SpO2 (%) 94 -CK O2 Delivery Post Treatment room air -CK Pre Patient Position Supine -CK Intra Patient Position Standing -CK Post Patient Position Sitting -CK Row Name 01/04/24 1114 Positioning and Restraints Pre-Treatment Position in bed -CK Post Treatment Position chair -CK In Chair reclined;call light within reach;encouraged to call for assist;exit alarm on;with family/caregiver;waffle cushion;on mechanical lift sling;compression device;notified nsg -CK User Oliver (r) = Recorded By, (t) = Taken By, (c) = Cosigned By Initials Name Provider Type CK Dannielle Orellana, VIDYA Physical Therapist Outcome Measures Row Name 01/04/24 1118 01/04/24 0830 How much help from another person do you currently need... Turning from your back to your side while in flat bed without using bedrails? 3 -CK 3 -AP (r) LJ (t) AP (c) Moving from lying on back to sitting on the side of a flat bed without bedrails? 3 -CK 2 -AP (r) LJ(t) AP (c) Moving to and from a bed to a chair (including a wheelchair)? 3 -CK 2 -AP (r) LJ (t) AP (c) Standing up from a chair using your arms (e.g., wheelchair, bedside chair)? 3 - CK 3 -AP (r) LJ (t) AP (c) Climbing 3-5 steps with a railing? 2 -CK 2 -AP (r) LJ (t) AP (c) To walk in hospital room? 3 -CK 2 -AP (r) LJ (t) AP (c) AM-PAC 6 Clicks Score (PT) 17 -CK 14 -AP (r) LJ (t) Highest Level of Mobility Goal 5 --> Static standing -CK 4 --> Transfer to chair/commode -AP (r) LJ (t) Row Name 01/04/241117 Functional Assessment Outcome Measure Options AM-PAC 6 Clicks Basic Mobility (PT) -CK User Oliver (r) = Recorded By, (t) = Taken By, (c) = Cosigned By Initials Name Provider Type AP Radha Rogers, RN Registered Nurse Sabrina Bhatt, Tire Technician Tire Technician Dannielle Burnette, PT Physical Therapist Physical Therapy Education Title: PT OT CERTIFIED BREASTFEEDING EDUCATOR Therapies (In Progress) Topic: Physical Therapy (Done) Point: Mobility training (Done) Learning Progress Summary Patient Acceptance, E, VU by CK at 01/04/20241117 Acceptance, E, VU by ND at 01/03/2024 0942 Family Acceptance, E, VU by CK at 01/04/20241117 Point: Home exercise program (Done) Learning Progress Summary Patient Acceptance, E, VU by CK at 01/04/20241117 Family Acceptance, E, VU by CK at 01/04/20241117 Point: Body mechanics (Done) Learning Progress Summary Patient Acceptance, E, VU by CK at 01/04/20241117 Acceptance, E, VU by ND at 01/03/2024 0942 Family Acceptance, E, VU by CK at 01/04/20241117 Point: Precautions (Done) Learning Progress Summary Patient Acceptance, E, VU by CK at 01/04/20241117 Acceptance, E, VU by ND at 01/03/2024 0942 Family Acceptance, E, VU by CK at 01/04/2024 1118 User Oliver Initials Effective Dates Name Provider Type Discipline CK 12/17/23 - Dannielle Orellana, PT Physical Therapist PT ND 09/26/23 - Catalina Guadarrama PT Physical Therapist PT PT Recommendation and Plan Plan of Care Reviewed With: patient, daughter Progress: improving Outcome Evaluation: Patient with significant improvement in pain control and mobility today. He wasable to ambulate in mahajan with FWW, however had multiple losses in balance requiring modA at times to correct. Encouraged frequent ambulation with nursing staff and initiated HEP. Continue to recommend D/C to IPR as patient is a high fall risk and unable to mobilize safely on his own at this time. Time Calculation: PT Charges Row Name 01/04/24 1118 Time Calculation Start Time 0954 -CK PT Received On 01/04/24 -CK PT Goal Re-Cert Due Date 01/13/24 -CK Timed Charges 14514 - PT Therapeutic Exercise Minutes 10 -CK 19092 - Gait Training Minutes 11 -CK 69413 - PT Therapeutic Activity Minutes 5 -CK Total Minutes Timed Charges Total Minutes 26 -CK Total Minutes 26 -CK User Oliver (r) = Recorded By, (t) = Taken By, (c) = Cosigned By Initials Name Provider Type CK Dannielle Orellana, PT Physical Therapist Therapy Charges for Today Code Description Service Date Service Provider Modifiers Qty 26768890987 HC PT THER PROC EA 15 MIN 01/04/2024 Dannielle Orellana, PT GP 1 18254015514 HC GAIT TRAINING EA 15 MIN 01/04/2024 Dannielle Orellana, PT GP 1 PT G-Codes Outcome Measure Options: AM-PAC 6 Clicks Basic Mobility (PT) AM-PAC 6 Clicks Score (PT): 17 AM-PAC 6 Clicks Score (OT): 15 PT Discharge Summary Anticipated Discharge Disposition (PT): inpatient rehabilitation facility Dannielle Orellana PT 01/04/2024 * Therapy Evaluation - Rocio Wilson, OT - 01/03/2024 1:15 PM EST Images from the original note were not included. Patient Name: Santo Terrell : 1945 Today's Date: 01/03/2024 Admit Date: 01/01/2024 Visit Dx: ICD-10-CM ICD-9-CM 1. 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 Essential hypertension Abnormal echocardiogram Nonrheumatic mitral valve regurgitation Preoperative clearance Spinal stenosis of lumbar region with neurogenic claudication Lumbar stenosis Seizure Past Medical History: Diagnosis Date Allergies PHOLCODINE [...] 01/01/2024 Procedure: LUMBAR LAMINECTOMY L3-4; Surgeon: Hank Hitchcock MD; Location: [facility] BEDS AT [facility]; Service: Neurosurgery; Laterality: N/A; SHOULDER ARTHROSCOPY Right TEETH EXTRACTION General Information Row Name 01/03/24 1446 OT Time and Intention Document Type evaluation -CS Mode of Treatment occupational therapy -CS Row Name 01/03/24 1446 General Information Patient Profile Reviewed yes -CS Prior Level of Function independent:;all household mobility;ADL's -CS Existing Precautions/Restrictions fall;spinal;oxygen therapy device and L/min;seizures -CS Barriers to Rehab medically complex -CS Row Name 01/03/24 1446 Living Environment People in Home alone -CS Row Name 01/03/24 1446 Home Main Entrance Number of Stairs, Main Entrance one -CS Row Name 01/03/24 1446 Stairs Within Home, Primary Number of Stairs, Within Home, Primary two -CS Row Name 01/03/24 1446 Cognition Orientation Status (Cognition) oriented x 3;situation -CS Row Name 01/03/24 1446 Safety Issues, Functional Mobility Impairments Affecting Function (Mobility) balance;strength;pain;postural/trunk control;endurance/activity tolerance -CS User Oliver (r) = Recorded By, (t) = Taken By, (c) = Cosigned By Initials Name Provider Type CS Rocio Wilson OT Occupational Therapist Mobility/ADL's Row Name 01/03/24 144 Bed Mobility Bed Mobility rolling left;rolling right - Rolling Left Edmunds (Bed Mobility) minimum assist (75% patient effort);verbal cues -CS Rolling Right Edmunds (Bed Mobility) minimum assist (75% patient effort);verbal cues -CS Assistive Device (Bed Mobility) bed rails;draw sheet - Row Name 01/03/241446 Transfers Transfers bed-chair transfer;sit-stand transfer;stand-sit transfer - Row Name 01/03/24 144 Bed-Chair Transfer Bed-Chair Edmunds (Transfers) dependent (less than 25% patient effort);2 person assist;verbal cues - Assistive Device (Bed-Chair Transfers) lift device - Row Name 01/03/241446 Sit-Stand Transfer Sit-Stand Edmunds (Transfers) minimum assist (75% patient effort);2 person assist;verbal cues - Assistive Device (Sit-Stand Transfers) walker, front-wheeled - Row Name 01/03/241446 Stand-Sit Transfer Stand-Sit Edmunds (Transfers) minimum assist (75% patient effort);2 person assist;verbal cues - Assistive Device (Stand-Sit Transfers) walker, front-wheeled - Row Name 01/03/241446 Functional Mobility Functional Mobility- Ind. Level moderate assist (50% patient effort);2 person assist required;verbal cues required - Functional Mobility- Device walker, front-wheeled -CS Functional Mobility-Distance (Feet) -- household distance - Functional Mobility- Comment Pt initially Min Ax2 however developed posterior lean and noted R kneebuckling w/ c/o fatigue, close chair follow - Row Name 01/03/24 144 Activities of Daily Living BADL Assessment/Intervention lower body dressing;feeding - Row Name 01/03/241446 Lower Body Dressing Assessment/Training Edmunds Level (Lower Body Dressing) don;socks;dependent (less than 25% patient effort) - Position (Lower Body Dressing) supine - Row Name 01/03/241446 Self-Feeding Assessment/Training Edmunds Level (Feeding) liquids to mouth;set up;finger foods - Position (Self-Feeding) supported sitting - User Oliver (r) = Recorded By, (t) = Taken By, (c) = Cosigned By Initials Name Provider Type Rocio Wilson OT Occupational Therapist Obj/Interventions [facility] Name 01/03/24 1448 Sensory Assessment (Somatosensory) Sensory Assessment (Somatosensory) UE sensation intact -[facility] Name 01/03/24 1448 Range of Motion Comprehensive General Range of Motion bilateral upper extremity ROM WFL -[facility] Name 01/03/24 1448 Strength Comprehensive (MMT) Comment, General Manual Muscle Testing (MMT) Assessment Deferred -[facility] Name 01/03/24 1448 Balance Balance Assessment sitting static balance;sitting dynamic balance;standing static balance;standing dynamic balance -CS Static Sitting Balance standby assist - Dynamic Sitting Balance contact guard - Position, Sitting Balance sitting in chair - Static Standing Balance minimal assist;2-person assist -CS Dynamic Standing Balance moderate assist;2-person assist -CS Position/Device Used, Standing Balance supported;walker, rolling -CS Balance Interventions sitting;standing;static;dynamic;dynamic reaching;occupation based/functional task;weight shifting activity -CS User Oliver (r) = Recorded By, (t) = Taken By, (c) = Cosigned By Initials Name Provider Type Rocio Wilson OT Occupational Therapist Goals/Plan [facility] Name 01/03/24 144 Transfer Goal 1 (OT) Activity/Assistive Device (Transfer Goal 1, OT) [id number];toilet -CS Edmunds Level/Cues Needed (Transfer Goal 1, OT) minimum assist (75% or more patient effort) -CS Time Frame (Transfer Goal 1, OT) prison goal (LTG);10 days -CS Progress/Outcome (Transfer Goal 1, OT) goal ongoing -[facility] Name 01/03/241448 Dressing Goal 1 (OT) Activity/Device (Dressing Goal 1, OT) lower body dressing -CS Edmunds/Cues Needed (Dressing Goal 1, OT) minimum assist (75% or more patient effort) -CS Time Frame (Dressing Goal 1, OT) termite treater goal (LTG);10 days -CS Strategies/Barriers (Dressing Goal 1, OT) don/doff socks w/ AAD -CS Progress/Outcome (Dressing Goal 1, OT) goal ongoing -[facility] Name 01/03/241448 Toileting Goal 1 (OT) Activity/Device (Toileting Goal 1, OT) adjust/manage clothing;perform perineal hygiene -CS Edmunds Level/Cues Needed (Toileting Goal 1, OT) moderate assist (50-74% patient effort) -CS Time Frame (Toileting Goal 1, OT) prison goal (LTG);10 days -CS Progress/Outcome (Toileting Goal 1, OT) goal ongoing -CS Row Name 01/03/24 1449 Therapy Assessment/Plan (OT) Planned Therapy Interventions (OT) activity tolerance training;adaptive equipment training;BADL retraining;functional balance retraining;occupation/activity based interventions;ROM/therapeutic exercis e;strengthening exercise;transfer/mobility retraining -CS User Oliver (r) = Recorded By, (t) = Taken By, (c) = Cosigned By Initials Name Provider Type CS Rocio Wilson OT Occupational Therapist Clinical Impression Row Name 01/03/24 1450 Pain Assessment Pretreatment Pain Rating 0/10 - no pain -CS Posttreatment Pain Rating 0/10 - no pain -CS Row Name 01/03/24 1450 Plan of Care Review Plan of Care Reviewed With patient;family -CS Progress improving -CS Outcome Evaluation OT eval complete. Pt presents w/ deficits in balance, strength, and functional endurance warranting cont skilled IPOT POC to promote return to PLOF. Recommend pt DC to IP rehab. -CS Row Name 01/03/24 1450 Therapy Assessment/Plan (OT) Patient/Family Therapy Goal Statement (OT) Return to PLOF -CS Rehab Potential (OT) good, to achieve stated therapy goals -CS Criteria for Skilled Therapeutic Interventions Met (OT) yes;skilled treatment is necessary -CS Therapy Frequency (OT) daily -CS Row Name 01/03/24 1450 Therapy Plan Review/Discharge Plan (OT) Anticipated Discharge Disposition (OT) inpatient rehabilitation facility -CS Row Name 01/03/24 1450 Vital Signs Pre SpO2 (%) 95 -CS O2 Delivery Pre Treatment room air -CS Post SpO2 (%) 97 -CS O2 Delivery Post Treatment room air -CS Pre Patient Position Supine -CS Intra Patient Position Standing -CS Post Patient Position Sitting -CS Row Name 01/03/24 1450 Positioning and Restraints Pre-Treatment Position in bed -CS Post Treatment Position chair -CS In Chair notified nsg;reclined;call light within reach;encouraged to call for assist;exit alarm on;RUE elevated;LUE elevated;legs elevated;with family/caregiver;waffle cushion;on mechanical lift sling -CS User Oliver (r) = Recorded By, (t) = Taken By, (c) = Cosigned By Initials Name Provider Type Rocio Fuentes OT Occupational Therapist Outcome Measures Row Name 01/03/24 1450 How much help from another is currently needed... Putting on and taking off regular lower body clothing? 2 -CS Bathing (including washing, rinsing, and drying) 2 -CS Toileting (which includes using toilet bed burnham or urinal) 2 -CS Putting on and taking off regular upper body clothing 2 -CS Taking care of personal grooming (such as brushing teeth) 3 -CS Eating meals 4 -CS AM-PAC 6 Clicks Score (OT) 15 -CS Row Name 01/03/24 0941 How much help from another person do you currently need... Turning from your back to your side while in flat bed without using bedrails? 2 -ND Moving from lying on back to sitting on the side of a flat bed without bedrails? 2 -ND Moving to and from a bed to a chair (including a wheelchair)? 2 -ND Standing up from a chair using your arms (e.g., wheelchair, bedside chair)? 2 -ND Climbing 3-5 steps with a railing? 1 -ND To walk in hospital room? 2 -ND AM-PAC 6 Clicks Score (PT) 11 -ND Highest Level of Mobility Goal 4 --> Transfer to chair/commode -ND Row Name 01/03/24 1450 01/03/24 0941 Functional Assessment Outcome Measure Options AM-PAC 6 Clicks Daily Activity (OT) -CS AM-PAC 6 Clicks Basic Mobility (PT)-ND User Oliver (r) = Recorded By, (t) = Taken By, (c) = Cosigned By Initials Name Provider Type Rocio Fuentes OT Occupational Therapist Catalina Doyle PT Physical Therapist Occupational Therapy Education Title: PT OT CERTIFIED BREASTFEEDING EDUCATOR Therapies (In Progress) Topic: Occupational Therapy (In Progress) Point: ADL training (In Progress) Description: Instruct learner(s) on proper safety adaptation and remediation techniques during self care or transfers. Instruct in proper use of assistive devices. Learning Progress Summary Patient Acceptance, E, NR by SHY at 01/03/2024 1450 Family Acceptance, E, NR by CS at 01/03/20241449 Point: Home exercise program (Not Started) Description: Instruct learner(s) on appropriate technique for monitoring, assisting and/or progressing therapeutic exercises/activities. Learner Progress: Not documented in this visit. Point: Precautions (In Progress) Description: Instruct learner(s) on prescribed precautions during self-care and functional transfers. Learning Progress Summary Patient Acceptance, E, NR by CS at 01/03/20241449 Family Acceptance, E, NR by CS at 01/03/20241449 Point: Body mechanics (In Progress) Description: Instruct learner(s) on proper positioning and spine alignment during self-care, functional mobilityactivities and/or exercises. Learning Progress Summary Patient Acceptance, E, NR by CS at 01/03/20241449 Family Acceptance, E, NR by CS at 01/03/20241449 User Oliver Initials Effective Dates Name Provider Type Discipline 07/13/21 - Rocio Wilson, OT Occupational Therapist OT OT Recommendation and Plan Planned Therapy Interventions (OT): activity tolerance training, adaptive equipment training, BADL retraining, functional balance retraining, occupation/activity based interventions, ROM/therapeutic exercise, strengthening exercise, transfer/mobility retraining Therapy Frequency (OT): daily Plan of Care Review Plan of Care Reviewed With: patient, family Progress: improving Outcome Evaluation: OT eval complete. Pt presents w/ deficits in balance, strength, and functional endurance warranting cont skilled IPOT POC to promote return to PLOF. Recommend pt DC to IP rehab. Time Calculation: Evaluation Complexity (OT) Review Occupational Profile/Medical/Therapy History Complexity: expanded/moderate complexity Assessment, Occupational Performance/Identification of Deficit Complexity: 5 or more performance deficits Clinical Decision Making Complexity (OT): detailed assessment/moderate complexity Overall Complexity of Evaluation (OT): moderate complexity Time Calculation- OT Row Name 01/03/24 1453 Time Calculation- OT OT Start Time 1315 -CS OT Received On 01/03/24 -CS OT Goal Re-Cert Due Date 01/13/24 -CS Timed Charges 16758 - OT Therapeutic Activity Minutes 18 -CS 62817 - OT Self Care/Mgmt Minutes 5 -CS Untimed Charges OT Eval/Re-eval Minutes 31 -CS Total Minutes Timed Charges Total Minutes 23 -CS Untimed Charges Total Minutes 31 -CS Total Minutes 54 -CS User Oliver (r) = Recorded By, (t) = Taken By, (c) = Cosigned By Initials Name Provider Type CS Rocio Wilson OT Occupational Therapist Therapy Charges for Today Code Description Service Date Service Provider Modifiers Qty 04251711367 HC OT THERAPEUTIC ACT EA 15 MIN 01/03/2024 Rocio Wilson OT GO 1 45979789704 HC OT SELF CARE/MGMT/TRAIN EA 15 MIN 01/03/2024 Rocio Wilson OT GO 1 31759838993 HC OT EVAL MOD COMPLEXITY 3 01/03/2024 Rocio Wilson OT GO 1 30964169404 HC OT THER SUPP EA 15 MIN 01/03/2024 Rocio Wilson OT GO 2 Rocio Wilson OT 01/03/2024 * Case Management/Social Work - Didi Lawrence RN - 01/03/2024 11:46 AM EST Images from the original note were not included. Discharge Planning Assessment [facility] Patient Name: Santo Terrell Today's Date: 01/03/2024 Admit Date: 01/01/2024 Plan: Rehab Discharge Needs Assessment Row Name 01/03/24 1136 Living Environment People in Home alone Current Living Arrangements home Potentially Unsafe Housing Conditions unable to assess In the past 12 months has the electric, gas, oil, or water company threatened to shut off services in your home? No Primary Care Provided by self Provides Primary Care For no one Family Caregiver if Needed child(juana), adult Family Caregiver Names Cathy Terrell, daughter Quality of Family Relationships helpful;involved;supportive Resource/Environmental Concerns Resource/Environmental Concerns none Transportation Concerns none Food Insecurity Within the past 12 months, you worried that your food would run out before you got the money to buymore. Never true Within the past 12 months, the food you bought just didn't last and you didn't have money to get more. Never true Transition Planning Patient/Family Anticipates Transition to home with help/services;inpatient rehabilitation facility Patient/Family Anticipated Services at Transition caseworkerconstruction safety manager Anticipated family or friend will provide Discharge Needs Assessment Equipment Currently Used at Home none Concerns to be Addressed discharge planning Discharge Plan Row Name 01/03/24 1137 Plan Plan Rehab Patient/Family in Agreement with Plan yes Plan Comments Spoke with patient and his daughter, Cahty, at bedside to initiate discharge planning. Confirmed patient's residence in [facility]; PCP is Robinson Manley; insurance is [facility] Medicare. Patient is reported to be independent with ADLs and mobility prior to this admission; no DMEor HH. Patient's pharmacy is [facility] in [place]. Discussed therapy recommendations with Cathy; she willfurther discuss discharge plan with Fito Ledesma, the patient's POA, and call me with a few rehab facilities for referrals. CM will continue to follow. Continued Care and Services - Admitted Since 01/01/2024 Coordination has not been started for this encounter. Expected Discharge Date and Time Expected Discharge Date Expected Discharge Time Jan 08, 2024 Demographic Summary Row Name 01/03/24 1134 General Information Arrived From home Referral Source admission list Reason for Consult discharge planning Preferred Language Gabonese Contact Information Permission Granted to Share Info With caseworkeraudio/visual manager Status Row Name 01/03/24 1135 Functional Status Usual Activity Tolerance good Current Activity Tolerance other (see comments) see therapy notes Functional Status, IADL Medications independent Meal Preparation independent Housekeeping independent Laundry independent Shopping independent Psychosocial No documentation. Abuse/Neglect No documentation. Legal No documentation. Substance Abuse No documentation. Patient Forms No documentation. Didi Lawrence RN * Therapy Evaluation - Catalina Guadarrama, PT - 01/03/2024 7:46 AM EST Images from the original note were not included. Patient Name: Santo Terrell : 1945 Today's Date: 01/03/2024 Admit Date: 01/01/2024 Visit Dx: No diagnosis found. Patient Active Problem List Diagnosis Atrial fibrillation Hypercholesterolemia Coronary artery disease involving [place] heart without angina pectoris Essential hypertension Abnormal echocardiogram Nonrheumatic mitral valve regurgitation Preoperative clearance Spinal stenosis of lumbar region with neurogenic claudication Lumbar stenosis Seizure Past Medical History: Diagnosis Date Allergies PHOLCODINE [...] 01/01/2024 Procedure: LUMBAR LAMINECTOMY L3-4; Surgeon: Hank Hitchcock MD; Location: [facility]; Service: Neurosurgery; Laterality: N/A; SHOULDER ARTHROSCOPY Right TEETH EXTRACTION General Information Row Name 01/03/24922 Physical Therapy Time and Intention Document Type evaluation -ND Mode of Treatment physical therapy -ND Row Name 01/03/24922 General Information Patient Profile Reviewed yes -ND Prior Level of Function independent:;all household mobility;gait;transfer;bed mobility -ND Existing Precautions/Restrictions fall;spinal;oxygen therapy device and L/min;seizures Hemovac. -ND Barriers to Rehab medically complex -ND Row Name 01/03/24922 Living Environment People in Home alone -ND Row Name 01/03/24922 Home Main Entrance Number of Stairs, Main Entrance one -ND Stair Railings, Main Entrance none -ND Row Name 01/03/24922 Stairs Within Home, Primary Number of Stairs, Within Home, Primary two -ND Row Name 01/03/24922 Cognition Orientation Status (Cognition) oriented x 3 -ND Row Name 01/03/24922 Safety Issues, Functional Mobility Safety Issues Affecting Function (Mobility) awareness of need for assistance;insight into deficits/self-awareness;safety precaution awareness;safety precautions follow-through/compliance;sequencing abilities -ND Impairments Affecting Function (Mobility) balance;strength;pain;postural/trunk control;endurance/activity tolerance -ND User Oliver (r) = Recorded By, (t) = Taken By, (c) = Cosigned By Initials Name Provider Type ND Catalina Guadarrama PT Physical Therapist Mobility Row Name 01/03/24924 Bed Mobility Bed Mobility supine-sit;sit-supine;rolling left;rolling right -ND Rolling Left [place] (Bed Mobility) moderate assist (50% patient effort) -ND Rolling Right [place] (Bed Mobility) moderate assist (50% patient effort) -ND Supine-Sit [place] (Bed Mobility) moderate assist (50% patient effort) -ND Sit-Supine [place] (Bed Mobility) moderate assist (50% patient effort) -ND Assistive Device (Bed Mobility) bed rails;draw sheet;head of bed elevated -ND Comment, (Bed Mobility) Instructed pt in log rolling technique for supine>sit. Pt reporting dizziness with sitting upright and requests to return to supine, BP stable. Attempted sitting upright a second time and pt once again returned to supine. Pt rolled L/R to place lift sling. -ND Row Name 01/03/24 09 Bed-Chair Transfer Bed-Chair [place] (Transfers) dependent (less than 25% patient effort);2 person assist;verbal cues -ND Assistive Device (Bed-Chair Transfers) lift device -ND Comment, (Bed-Chair Transfer) Pt with decreased tolerance to being upright. Lifted to chair where pt reporting 10/10 pain and RN administered pain medication. Pt with increased fatigue following painmedication and lifted back to bed per RN request. -ND Row Name 01/03/24 09 Sit-Stand Transfer Sit-Stand [place] (Transfers) unable to assess -ND Row Name 01/03/24 0925 Gait/Stairs (Locomotion) [place] Level (Gait) unable to assess -ND Comment, (Gait/Stairs) Deferred ambulation due to pain. -ND User Oliver (r) = Recorded By, (t) = Taken By, (c) = Cosigned By Initials Name Provider Type Catalina Doyle PT Physical Therapist Obj/Interventions Row Name 01/03/24 09 Range of Motion Comprehensive General Range of Motion bilateral lower extremity ROM WFL -ND Row Name 01/03/24929 Strength Comprehensive (MMT) General Manual Muscle Testing (MMT) Assessment other (see comments);lower extremity strength deficits identified Difficult to assess, will assess further next session. -ND Row Name 01/03/24 09 Balance Balance Assessment sitting static balance;sitting dynamic balance -ND Static Sitting Balance contact guard -ND Dynamic Sitting Balance moderate assist -ND Position, Sitting Balance unsupported;sitting edge of bed -ND Balance Interventions sitting;static;dynamic -ND Comment, Balance Cues for upright posture in sitting. -ND Row Name 01/03/24 0930 Sensory Assessment (Somatosensory) Sensory Assessment (Somatosensory) LE sensation intact -ND User Oliver (r) = Recorded By, (t) = Taken By, (c) = Cosigned By Initials Name Provider Type Catalina Doyle, PT Physical Therapist Goals/Plan Row Name 01/03/24937 Bed Mobility Goal 1 (PT) Activity/Assistive Device (Bed Mobility Goal 1, PT) sit to supine/supine to sit -ND [place] Level/Cues Needed (Bed Mobility Goal 1, PT) independent -ND Time Frame (Bed Mobility Goal 1, PT) termite treater goal (LTG);10 days -ND Row Name 01/03/24937 Transfer Goal 1 (PT) Activity/Assistive Device (Transfer Goal 1, PT) [id number]-rk-yheed/[id number]-ng-xrm;[id number]-jo-icjgp/jmybw-iq-xdg-ND [place] Level/Cues Needed (Transfer Goal 1, PT) independent -ND Time Frame (Transfer Goal 1, PT) termite treater goal (LTG);10 days -ND Row Name 01/03/24937 Gait Training Goal 1 (PT) Activity/Assistive Device (Gait Training Goal 1, PT) gait (walking locomotion);increase endurance/gait distance;decrease fall risk -ND [place] Level (Gait Training Goal 1, PT) independent -ND Distance (Gait Training Goal 1, PT) 500 -ND Time Frame (Gait Training Goal 1, PT) termite treater goal (LTG);10 days -ND Row Name 01/03/24937 Therapy Assessment/Plan (PT) Planned Therapy Interventions (PT) balance training;bed mobility training;home exercise program;gait training;patient/family education;transfer training;postural re-education;strengthening;ROM (rangeof motion) -ND User Oliver (r) = Recorded By, (t) = Taken By, (c) = Cosigned By Initials Name Provider Type Catalina Doyle, PT Physical Therapist Clinical Impression Row Name 01/03/24 0934 Pain Pretreatment Pain Rating 10/10 -ND Posttreatment Pain Rating 0/10 - no pain -ND Pain Location - Side/Orientation Bilateral -ND Pain Location - back -ND Pre/Posttreatment Pain Comment Pain increasing with mobility. -ND Pain Intervention(s) Repositioned;Nursing Notified;Ambulation/increased activity -ND Row Name 01/03/24933 Plan of Care Review Plan of Care Reviewed With patient;daughter -ND Outcome Evaluation PT evaluation completed. Pt is currently below baseline levels of mobility and demonstrating generalized weakness, decreased balance, limited activity tolerance, and increased painwith mobility warranting IP PT services to address deficits and facilitate return to PLOF. Recommend IRF pending progress. -ND Row Name 01/03/24 0934 Therapy Assessment/Plan (PT) Patient/Family Therapy Goals Statement (PT) Return to PLOF. -ND Rehab Potential (PT) good, to achieve stated therapy goals -ND Criteria for Skilled Interventions Met (PT) yes;meets criteria;skilled treatment is necessary -ND Therapy Frequency (PT) daily -ND Row Name 01/03/24 0934 Vital Signs Pre Systolic BP Rehab 127 -ND Pre Treatment Diastolic BP 46 -ND Intra Systolic BP Rehab 149 139/116 -ND Intra Treatment Diastolic BP 99 -ND Post Systolic BP Rehab 134 -ND Post Treatment Diastolic BP 80 -ND Pretreatment Heart Rate (beats/min) 55 -ND Posttreatment Heart Rate (beats/min) 70 -ND Pre SpO2 (%) 94 -ND O2 Delivery Pre Treatment room air -ND O2 Delivery Intra Treatment room air -ND Post SpO2 (%) 91 -ND O2 Delivery Post Treatment room air -ND Pre Patient Position Supine -ND Intra Patient Position Sitting -ND Post Patient Position Supine -ND Row Name 01/03/24 0934 Positioning and Restraints Pre-Treatment Position in bed -ND Post Treatment Position bed -ND In Bed notified nsg;supine;with nsg;with family/caregiver;call light within reach;encouraged to call for assist;exit alarm on;side rails up x3 -ND User Oliver (r) = Recorded By, (t) = Taken By, (c) = Cosigned By Initials Name Provider Type ND Catalina Guadarrama, PT Physical Therapist Outcome Measures Row Name 01/03/24 0941 How much help from another person do you currently need... Turning from your back to your side while in flat bed without using bedrails? 2 -ND Moving from lying on back to sitting on the side of a flat bed without bedrails? 2 -ND Moving to and from a bed to a chair (including a wheelchair)? 2 -ND Standing up from a chair using your arms (e.g., wheelchair, bedside chair)? 2 -ND Climbing 3-5 steps with a railing? 1 -ND To walk in hospital room? 2 -ND AM-PAC 6 Clicks Score (PT) 11 -ND Highest Level of Mobility Goal 4 --> Transfer to chair/commode -ND Row Name 01/03/24 0941 Functional Assessment Outcome Measure Options AM-PAC 6 Clicks Basic Mobility (PT) -ND User Oliver (r) = Recorded By, (t) = Taken By, (c) = Cosigned By Initials Name Provider Type ND Catalina Guadarrama, VIDYA Physical Therapist Physical Therapy Education Title: PT OT CERTIFIED BREASTFEEDING EDUCATOR Therapies (In Progress) Topic: Physical Therapy (In Progress) Point: Mobility training (Done) Learning Progress Summary Patient Acceptance, E, VU by ND at 01/03/2024941 Point: Home exercise program (Not Started) Learner Progress: Not documented in this visit. Point: Body mechanics (Done) Learning Progress Summary Patient Acceptance, E, VU by ND at 01/03/2024941 Point: Precautions (Done) Learning Progress Summary Patient Acceptance, E, VU by ND at 01/03/2024941 User Oliver Initials Effective Dates Name Provider Type Discipline ND 09/26/23 - Catalina Guadarrama PT Physical Therapist PT PT Recommendation and Plan Planned Therapy Interventions (PT): balance training, bed mobility training, home exercise program,gait training, patient/family education, transfer training, postural re-education, strengthening, ROM (range of motion) Plan of Care Reviewed With: patient, daughter Outcome Evaluation: PT evaluation completed. Pt is currently below baseline levels of mobility and demonstrating generalized weakness, decreased balance, limited activity tolerance, and increased pain with mobility warranting IP PT services to address deficits and facilitate return to PLOF. Recommend IRF pending progress. Time Calculation: PT Evaluation Complexity History, PT Evaluation Complexity: 3 or more personal factors and/or comorbidities Examination of Body Systems (PT Eval Complexity): total of 4 or more elements Clinical Presentation (PT Evaluation Complexity): evolving Clinical Decision Making (PT Evaluation Complexity): moderate complexity Overall Complexity (PT Evaluation Complexity): moderate complexity PT Charges Row Name 01/03/24941 Time Calculation Start Time 0746 -ND PT Received On 01/03/24 - PT Goal Re-Cert Due Date 01/13/24 -ND Untimed Charges PT Eval/Re-eval Minutes 50 -ND Total Minutes Untimed Charges Total Minutes 50 -ND Total Minutes 50 -ND User Oliver (r) = Recorded By, (t) = Taken By, (c) = Cosigned By Initials Name Provider Type ND Catalina Guadarrama, PT Physical Therapist Therapy Charges for Today Code Description Service Date Service Provider Modifiers Qty [id number] HC PT EVAL MOD COMPLEXITY 4 01/03/2024 Catalina Guadarrama, PT GP 1 PT G-Codes Outcome Measure Options: AM-PAC 6 Clicks Basic Mobility (PT) AM-PAC 6 Clicks Score (PT): 11 PT Discharge Summary Anticipated Discharge Disposition (PT): inpatient rehabilitation facility Catalina Guadarrama PT 01/03/2024 * Case Management/Social Work - Isis Cancino RN - 01/02/2024 3:33 PM EST Continued Stay Note [facility] Patient Name: Santo Terrell Today's Date: 01/02/2024 Admit Date: 01/01/2024 Plan: TBD Discharge Plan Row Name 01/02/24 1509 Plan Plan TBD Patient/Family in Agreement with Plan unable to assess Plan Comments Per MDR, Mr. Terrell is disoriented presently. I have attempted to contact his nephew/Tay PRICE by phone without success to initiate discharge planning. I did leave a message to return call to CM. Per Chart review, Mr. Terrell lives in [facility]. He is now being followed by Critical Care/Pulmonology, Neurosurgery and Neurology for s/p L3-4 laminectomy on 01/01 with a postoperative seizure observed in the PACU. 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 Able to say name, but does not answer other questions appropriately. Plan for MRI later today. CM will cont to follow the evolving plan of care and assist with discharge planning as recommendations become available. Final Discharge Disposition Code 30 - still a patient Discharge Codes No documentation. Isis Cancino RN * Significant Note - Valdemar Curran APRN - 01/01/2024 10:23 PM EST Called to bedside to speak w/ family r/t questions they had about POC & EEG finding. I answeredthese to the best of my ability. They presented us with POA & advance directive paperwork. See orders (no feeding tubes, DNR/DNI). RN to update primary service. Addendum - 2306 Primary service aware. documented in this encounter Plan of Treatment Upcoming Encounters Date Type Department Care Team (Late st Contact Info) Description 12/15/2024 8:30 AM EST Office Visit [facility] [address] [phone] Hannah Martinez APRN [address] [id number] 02/04/2025 9:00 AM EDT Office Visit [facility] NEUR[facility]Y [address] [facility] [address] [place] [address] Britany Braxton MD [address] [facility] [address] [place] [address] documented as of this encounter Procedures Procedure Name Priority Date/Time Associated Diagnosis Comments MAGNESIUM Routine 01/07/2024 5:41 AM EST BASIC METABOLIC PANEL Routine 01/07/2024 5:41 AM EST POTASSIUM Timed 01/06/2024 6:00 PM EST MAGNESIUM Routine 01/06/2024 5:07 AM EST BASIC METABOLIC PANEL Routine 01/06/2024 5:07 AM EST MAGNESIUM Routine 01/05/2024 5:15 AM EST BASIC METABOLIC PANEL Routine 01/05/2024 5:15 AM EST POCT GLUCOSE FINGERSTICK Routine 01/04/2024 5:31 PM EST POCT GLUCOSE FINGERSTICK Routine 01/04/2024 11:21 AM EST CBC (NO DIFF) Routine 01/04/2024 4:04 AM EST MAGNESIUM Routine 01/04/2024 4:04 AM EST BASIC METABOLIC PANEL Routine 01/04/2024 4:04 AM EST POCT GLUCOSE FINGERSTICK Routine 01/03/2024 5:46 PM EST POCT GLUCOSE FINGERSTICK Routine 01/03/2024 11:32 AM EST POCT GLUCOSE FINGERSTICK Routine 01/03/2024 5:25 AM EST BLOOD GAS, VENOUS W/CO-OXIMETRY Routine 01/03/2024 4:23 AM EST CBC (NO DIFF) Routine 01/03/2024 4:23 AM EST MAGNESIUM Routine 01/03/2024 4:23 AM EST BASIC METABOLIC PANEL Routine 01/03/2024 4:23 AM EST POCT GLUCOSE FINGERSTICK Routine 01/02/2024 11:35 PM EST POCT GLUCOSE FINGERSTICK Routine 01/02/2024 5:37 PM EST MRI BRAIN WO CONTRAST STAT 01/02/2024 3:04 PM EST MRI ANGIOGRAM HEAD WO CONTRAST STAT 01/02/2024 2:49 PM EST POCT GLUCOSE FINGERSTICK Routine 01/02/2024 11:41 AM EST CBC WITH AUTO DIFFERENTIAL Routine 01/02/2024 7:31 AM EST CBC AND DIFFERENTIAL Routine 01/02/2024 7:31 AM EST PHOSPHORUS Routine 01/02/2024 7:31 AM EST MAGNESIUM Routine 01/02/2024 7:31 AM EST BASIC METABOLIC PANEL Routine 01/02/2024 7:31 AM EST POCT GLUCOSE FINGERSTICK Routine 01/02/2024 4:[address] ANGIOGRAM HEAD Routine 01/02/2024 3:[address] HEAD WO CONTRAST Routine 01/02/2024 3 :14 AM EST POCT GLUCOSE FINGERSTICK Routine 01/02/2024 12:14 AM EST EEG AWAKE OR ASLEEP PORTABLE Routine 01/01/2024 7:04 PM EST POCT GLUCOSE FINGERSTICK Routine 01/01/2024 6:[address] HEAD WO CONTRAST STAT 01/01/2024 5 :14 PM EST BASIC METABOLIC PANEL Routine 01/01/2024 3:39 PM EST POCT GLUCOSE FINGERSTICK Routine 01/01/2024 3:31 PM EST FL C ARM DURING SURGERY Routine 01/01/2024 2:50 PM EST OK GILMORE FACETECTOMY & FORAMOTOMY 1 VRT SGM LUMBAR 01/01/2024 1:16 PM EST Spinal stenosis of lumbar region, unspecified whether neurogenic claudication present Special Needs FILMS ON PAX, C-ARM + SCANNED - TELEMETRY 01/01/2024 SCANNED - TELEMETRY 01/01/2024 documented in this encounter Results * Magnesium (01/07/2024 5:41 AM EST) Pathologist [facility] Magnesium 1.8 1.6 - 2.4 mg/dL 01/07/2024 6:53 AM EST [facility] Blood Venipuncture / Unknown 01/07/2024 5:41 AM EST 01/07/2024 6:11 AM EST us Brown Rodriguez MD LAB BLOOD ORDERABLES Final Res ult [facility]
[address] [place] [address], * (ABNORMAL) Basic Metabolic Panel (01/07/2024 5:41 AM EST) Pathologist [facility] Glucose 169(H) 65 - 99 mg/dL 01/07/2024 6:53 AM EST [facility] BUN 20 8 - 23 mg/dL 01/07/2024 6:53 AM [facility] Creatinine 1.10 0.76 - 1.27 mg/dL 01/07/2024 6:53 AM [facility] Sodium 135(L) 136 - 145 mmol/L 01/07/2024 6:53 AM [facility] Potassium 4.2 3.5 - 5.2 mmol/L 01/07/2024 6:53 AM [facility] Chloride 101 98 - 107 mmol/L 01/07/2024 6:53 AM [facility] CO2 25.0 22.0 - 29.0 mmol/L 01/07/2024 6:53 AM [facility] Calcium 9.2 8.6 - 10.5 mg/dL 01/07/2024 6:53 AM [facility] BUN/Creatinine Ratio 18.2 7.0 - 25.0 01/07/2024 6:53 AM [facility] Anion Gap 9.0 5.0 - 15.0 mmol/L 01/07/2024 6:53 AM EST [facility] eGFR 69.1 >60.0 mL/min/1.7 3 01/07/2024 6:53 AM EST [facility] Blood Venipuncture / Unknown 01/07/2024 5:41 AM EST 01/07/2024 6:11 AM EST Narrative [facility] - 01/07/2024 6:53 AM EST GFR Normal >60 Chronic Kidney Disease <60 Kidney Failure <15 The GFR formula is only valid for adults with stable renal function between ages 18 and 70. Brown Rodriguez MD LAB BLOOD ORDERABLES Final Res ult Performing Organization Address City/[facility] Co de Phone Number [facility]
[address] [place] [address], * Potassium (01/06/2024 6:00 PM EST) Potassium 4.8 3.5 - 5.2 mmol/L 01/06/2024 6:47 PM EST [facility] Comment:Slight hemolysis det ected by analyzer. Result may be falsely elevated. Blood Venipuncture / Unknown 01/06/2024 6:00 PM EST 01/06/2024 6:33 PM EST Brown Rodriguez MD LAB BLOOD ORDERABLES Final Res ult [facility]
[address] [place] [address], [place] [phone] * Magnesium (01/06/2024 5:07 AM EST) Magnesium 1.7 1.6 - 2.4 mg/dL 01/06/2024 6:18 AM EST [facility] Blood Venipuncture / Unknown 01/06/2024 5:07 AM EST 01/06/2024 5:38 AM EST us Brown Rodriguez MD LAB BLOOD ORDERABLES Final Res ult [facility]
[address] [place] [address], * (ABNORMAL) Basic Metabolic Panel (01/06/2024 5:07 AM EST) Glucose 189(H) 65 - 99 mg/dL 01/06/2024 6:18 AM EST [facility] BUN 21 8 - 23 mg/dL 01/06/2024 6:18 AM EST [facility] Creatinine 1.11 0.76 - 1.27 mg/dL 01/06/2024 6:18 AM EST [facility] Sodium 135(L) 136 - 145 mmol/L 01/06/2024 6:18 AM EST [facility] Potassium 3.4(L) 3.5 - 5.2 mmol/L 01/06/2024 6:18 AM EST [facility] Chloride 100 98 - 107 mmol/L 01/06/2024 6:18 AM EST [facility] CO2 24.0 22.0 - 29.0 mmol/L 01/06/2024 6:18 AM EST [facility] Calcium 8.4(L) 8.6 - 10.5 mg/dL 01/06/2024 6:18 AM EST [facility] BUN/Creatinine Ratio 18.9 7.0 - 25.0 01/06/2024 6:18 AM EST [facility] Anion Gap 11.0 5.0 - 15.0 mmol/L 01/06/2024 6:18 AM EST [facility] eGFR 68.4 >60.0 mL/min/1.7 3 01/06/2024 6:18 AM EST [facility] Blood Venipuncture / Unknown 01/06/2024 5:07 AM EST 01/06/2024 5:38 AM EST Narrative [facility] - 01/06/2024 6:18 AM EST GFR Normal >60 Chronic Kidney Disease <60 Kidney Failure <15 The GFR formula is only valid for adults with stable renal function between ages 18 and 70. us Brown Rodriguez MD LAB BLOOD ORDERABLES Final Res ult Performing Organization Address [facility] Co de Phone Number [facility]
[address] [place] [address], * Magnesium (01/05/2024 5:15 AM EST) Magnesium 1.7 1.6 - 2.4 mg/dL 01/05/2024 6:47 AM EST [facility] Blood Venipuncture / Unknown 01/05/2024 5:15 AM EST 01/05/2024 6:04 AM EST us Brown Rodriguez MD LAB BLOOD ORDERABLES Final Res ult Performing Organization Address [facility] de Phone Number [facility]
[address] [place] [address], * (ABNORMAL) Basic Metabolic Panel (01/05/2024 5:15 AM EST) Glucose 139(H) 65 - 99 mg/dL 01/05/2024 6:47 AM EST [facility] BUN 20 8 - 23 mg/dL 01/05/2024 6:47 AM EST [facility] Creatinine 1.10 0.76 - 1.27 mg/dL 01/05/2024 6:47 AM EST [facility] Sodium 137 136 - 145 mmol/L 01/05/2024 6:47 AM EST [facility] Potassium 3.4(L) 3.5 - 5.2 mmol/L 01/05/2024 6:47 AM EST [facility] Chloride 103 98 - 107 mmol/L 01/05/2024 6:47 AM EST [facility] CO2 24.0 22.0 - 29.0 mmol/L 01/05/2024 6:47 AM EST [facility] Calcium 8.1(L) 8.6 - 10.5 mg/dL 01/05/2024 6:47 AM EST [facility] BUN/Creatinine Ratio 18.2 7.0 - 25.0 01/05/2024 6:47 AM EST [facility] Anion Gap 10.0 5.0 - 15.0 mmol/L 01/05/2024 6:47 AM EST [facility] eGFR 69.1 >60.0 mL/min/1.7 3 01/05/2024 6:47 AM EST [facility] Blood Venipuncture / Unknown 01/05/2024 5:15 AM EST 01/05/2024 6:04 AM EST Narrative [facility] - 01/05/2024 6:47 AM EST GFR Normal >60 Chronic Kidney Disease <60 Kidney Failure <15 The GFR formula is only valid for adults with stable renal function between ages 18 and 70. Brown Rodriguez MD LAB BLOOD ORDERABLES Final Res ult [facility]
[address] [place] [address], * POC Glucose Once (01/04/2024 5:31 PM EST) Glucose 94 70 - 130 mg/dL 01/04/2024 5:34 PM EST [facility] Blood 01/04/2024 5:31 PM EST 01/04/2024 5:34 PM EST Hakn Hitchcock MD POINT OF CARE TEST ORDERABLE S Final Result [facility]
[address] [place] [address], * (ABNORMAL) POC Glucose Once (01/04/2024 11:21 AM EST) Glucose 188(H) 70 - 130 mg/dL 01/04/2024 11:22 AM EST [facility] Blood 01/04/2024 11:2 1 AM EST 01/04/2024 11:22 AM EST us Hank Hitchcock MD POINT OF CARE TEST ORDERABLE S Final Result [facility]
[address] [place] [address], * (ABNORMAL) Basic Metabolic Panel (01/04/2024 4:04 AM EST) Glucose 135(H) 65 - 99 mg/dL 01/04/2024 5:57 AM EST [facility] BUN 21 8 - 23 mg/dL 01/04/2024 5:57 AM [facility] Creatinine 0.96 0.76 - 1.27 mg/dL 01/04/2024 5:57 AM [facility] Sodium 138 136 - 145 mmol/L 01/04/2024 5:57 AM [facility] Potassium 3.6 3.5 - 5.2 mmol/L 01/04/2024 5:57 AM [facility] Comment:Slight hemolysis det ected by analyzer. Result may be falsely elevated. Chloride 106 98 - 107 mmol/L 01/04/2024 5:57 AM EST [facility] CO2 22.0 22.0 - 29.0 mmol/L 01/04/2024 5:57 AM [facility] Calcium 8.3(L) 8.6 - 10.5 mg/dL 01/04/2024 5:57 AM [facility] BUN/Creatinine Ratio 21.9 7.0 - 25.0 01/04/2024 5:57 AM [facility] Anion Gap 10.0 5.0 - 15.0 mmol/L 01/04/2024 5:57 AM [facility] eGFR 81.4 >60.0 mL/min/1.7 3 01/04/2024 5:57 AM EST [facility] Blood Venipuncture / Unknown 01/04/2024 4:04 AM EST 01/04/2024 5:18 AM EST [facility] - 01/04/2024 5:57 AM EST GFR Normal >60 Chronic Kidney Disease <60 Kidney Failure <15 The GFR formula is only valid for adults with stable renal function between ages 18 and 70. us Tyrone Vee MD LAB BLOOD ORDERABLES Final Resu lt [facility]
[address] [place] [address], * CBC (No Diff) (01/04/2024 4:04 AM EST) WBC 9.20 3.40 - 10.80 10*3/mm3 01/04/2024 5:25 AM [facility] RBC 4.93 4.14 - 5.80 10*6/mm3 01/04/2024 5:25 AM [facility] Hemoglobin 14.3 13.0 - 17.7 g/dL 01/04/2024 5:25 AM [facility] Hematocrit 43.7 37.5 - 51.0 % 01/04/2024 5:25 AM [facility] MCV 88.6 79.0 - 97.0 fL 01/04/2024 5:25 AM [facility] MCH 29.0 26.6 - 33.0 pg 01/04/2024 5:25 AM [facility] MCHC 32.7 31.5 - 35.7 g/dL 01/04/2024 5:25 AM [facility] RDW 15.4 12.3 - 15.4 % 01/04/2024 5:25 AM [facility] RDW-SD 49.9 37.0 - 54.0 fl 01/04/2024 5:25 AM EST [facility] MPV 11.0 6.0 - 12.0 fL 01/04/2024 5:25 AM EST [facility] Platelets 152 140 - 450 10*3/mm3 01/04/2024 5:25 AM EST [facility] Blood Venipuncture / Unknown 01/04/2024 4:04 AM EST 01/04/2024 5:18 AM EST us Tyrone Vee MD LAB BLOOD ORDERABLES Final Resu lt [facility]
[address] [place] [address], [place] [phone] * Magnesium (01/04/2024 4:04 AM EST) Magnesium 1.9 1.6 - 2.4 mg/dL 01/04/2024 5:57 AM EST [facility] Blood Venipuncture / Unknown 01/04/2024 4:04 AM EST 01/04/2024 5:18 AM EST us Tyrone Vee MD LAB BLOOD ORDERABLES Final Resu lt Performing Organization Address City/[facility]/ZIP Co de Phone Number [facility]
[address] [place] [address], [place] [phone] * POC Glucose Once (01/03/2024 5:46 PM EST) Glucose 116 70 - 130 mg/dL 01/03/2024 5:47 PM EST [facility] Blood 01/03/2024 5:46 PM EST 01/03/2024 5:47 PM EST us Hank Hitchcock MD POINT OF CARE TEST ORDERABLE S Final Result Performing Organization Address City/[facility]/ZIP Co de Phone Number [facility]
[address] [place] [address], * POC Glucose Once (01/03/2024 11:32 AM EST) Glucose 104 70 - 130 mg/dL 01/03/2024 5:21 PM EST [facility] Blood 01/03/2024 11:3 2 AM EST 01/03/2024 5:21 PM EST us Hank Hitchcock MD POINT OF CARE TEST ORDERABLE S Final Result [facility]
[address] [place] [address], * POC Glucose Once (01/03/2024 5:25 AM EST) Pathologist [facility] Glucose 100 70 - 130 mg/dL 01/03/2024 5:28 AM EST [facility] Blood 01/03/2024 5:25 AM EST 01/03/2024 5:28 AM EST us Hank Hitchcock MD POINT OF CARE TEST ORDERABLE S Final Result [facility]
[address] [place] [address], * (ABNORMAL) Blood Gas, Venous With Co-Ox (01/03/2024 4:23 AM EST) Site Nurse/Dr Draw 01/03/2024 4:24 AM EST [facility] THER[facility] pH, Venous 7.355 7.310 - 7.410 pH Units 01/03/2024 4:24 AM EST [facility] THERAPY pCO2, Venous 51.3(H) 41.0 - 51.0 mm Hg 01/03/2024 4:24 AM EST [facility] Comment:83 Value above refer ence range pO2, Venous 18.5(L) 27.0 - 53.0 mm Hg 01/03/2024 4:24 AM [facility] Comment:84 Value below refer ence range HCO3, Venous 28.6(H) 22.0 - 28.0 mmol/L 01/03/2024 4:24 AM [facility] THERAP[facility] Base Excess, Venous 2.0 -2.0 - 2.0 mmol/L 01/03/2024 4:24 AM [facility] Hemoglobin, Blood Gas 15.1 13.5 - 17.5 g/dL 01/03/2024 4:24 AM [facility] Oxyhemoglobin Venous 27.7 % 12/13 4:24 AM [facility] Comment:84 Value below refer ence range Methemoglobin Venous 0.5 % 12/13 4:24 AM [facility] Carboxyhemoglobin Venous 1.2 % 01/03/2024 4:24 AM [facility] CO2 Content 30.2 22 - 33 mmol/L 01/03/2024 4:24 AM [facility] THER[facility] Temperature 37.0 01/03/2024 4:24 AM [facility] Barometric Pressure for Blood Gas 01/03/2024 4:24 AM [facility] Comment:N/A Modality Nasal Cannula 01/03/2024 4:24 AM [facility] FIO2 28 % 01/03/2024 4:24 AM [facility] Rate 0 Breaths/ minute 01/03/2024 4:24 AM [facility] PIP 0 cmH2O 01/03/2024 4:24 AM [facility] Comment:Meter: [id number] Clinical Liaison: [id number] IPAP 0 01/03/2024 4:24 AM [facility] THERAPY EPAP 0 01/03/2024 4:24 AM [facility] Venous Blood 01/03/2024 4:23 AM EST 01/03/2024 4:23 AM EST us Hank Hitchcock MD LAB BLOOD ORDERABLES Final R esult [facility] THERAP[facility]
[address] [place] [address], * (ABNORMAL) Basic Metabolic Panel (01/03/2024 4:23 AM EST) Glucose 102(H) 65 - 99 mg/dL 01/03/2024 6:15 AM EST [facility] BUN 20 8 - 23 mg/dL 01/03/2024 6:15 AM EST [facility] Creatinine 1.13 0.76 - 1.27 mg/dL 01/03/2024 6:15 AM EST [facility] Sodium 142 136 - 145 mmol/L 01/03/2024 6:15 AM EST [facility] Potassium 4.9 3.5 - 5.2 mmol/L 01/03/2024 6:15 AM EST [facility] Chloride 107 98 - 107 mmol/L 01/03/2024 6:15 AM EST [facility] CO2 26.0 22.0 - 29.0 mmol/L 01/03/2024 6:15 AM EST [facility] Calcium 8.7 8.6 - 10.5 mg/dL 01/03/2024 6:15 AM EST [facility] BUN/Creatinine Ratio 17.7 7.0 - 25.0 01/03/2024 6:15 AM EST [facility] Anion Gap 9.0 5.0 - 15.0 mmol/L 01/03/2024 6:15 AM EST [facility] eGFR 66.9 >60.0 mL/min/1.7 3 01/03/2024 6:15 AM EST [facility] Blood Venipuncture / Unknown 01/03/2024 4:23 AM EST 01/03/2024 5:30 AM EST [facility] - 01/03/2024 6:15 AM EST GFR Normal >60 Chronic Kidney Disease <60 Kidney Failure <15 The GFR formula is only valid for adults with stable renal function between ages 18 and 70. us Tyrone Vee MD LAB BLOOD ORDERABLES Final Resu lt [facility]
[address] [place] [address], * (ABNORMAL) CBC (No Diff) (01/03/2024 4:23 AM EST) WBC 14.22(H) 3.40 - 10.80 10*3/mm3 01/03/2024 5:51 AM EST [facility] RBC 5.04 4.14 - 5.80 10*6/mm3 01/03/2024 5:51 AM EST [facility] Hemoglobin 14.1 13.0 - 17.7 g/dL 01/03/2024 5:51 AM EST [facility] Hematocrit 44.7 37.5 - 51.0 % 01/03/2024 5:51 AM EST [facility] MCV 88.7 79.0 - 97.0 fL 01/03/2024 5:51 AM EST [facility] MCH 28.0 26.6 - 33.0 pg 01/03/2024 5:51 AM EST [facility] MCHC 31.5 31.5 - 35.7 g/dL 01/03/2024 5:51 AM EST [facility] RDW 15.3 12.3 - 15.4 % 01/03/2024 5:51 AM EST [facility] RDW-SD 49.3 37.0 - 54.0 fl 01/03/2024 5:51 AM EST [facility] MPV 11.0 6.0 - 12.0 fL 01/03/2024 5:51 AM EST [facility] Platelets 160 140 - 450 10*3/mm3 01/03/2024 5:51 AM EST [facility] Blood Venipuncture / Unknown 01/03/2024 4:23 AM EST 01/03/2024 5:40 AM EST Tyrone Vee MD LAB BLOOD ORDERABLES Final Resu lt Performing Organization Address City/[facility]/ZIP Co de Phone Number [facility]
[address] [place] [address], * Magnesium (01/03/2024 4:23 AM EST) Magnesium 2.3 1.6 - 2.4 mg/dL 01/03/2024 6:15 AM EST [facility] Blood Venipuncture / Unknown 01/03/2024 4:23 AM EST 01/03/2024 5:30 AM EST Tyrone Vee MD LAB BLOOD ORDERABLES Final Resu lt Performing Organization Address [facility]/ZIP Co de Phone Number [facility]
[address] [place] [address], * POC Glucose Once (01/02/2024 11:35 PM EST) Glucose 121 70 - 130 mg/dL 01/02/2024 11:37 PM EST [facility] Blood 01/02/2024 11:3 5 PM EST 01/02/2024 11:37 PM EST Hank Hitchcock MD POINT OF CARE TEST ORDERABLE S Final Result Performing Organization Address City/[facility]/ZIP Co de Phone Number [facility]
[address] [place] [address], * POC Glucose Once (01/02/2024 5:37 PM EST) Glucose 115 70 - 130 mg/dL 01/02/2024 5:38 PM EST [facility] Blood 01/02/2024 5:37 PM EST 01/02/2024 5:38 PM EST us Hank Hitchcock MD POINT OF CARE TEST ORDERABLE S Final Result [facility]
[address] [place] [phone], * MRI Brain Without Contrast (01/02/2024 3:04 PM EST) Anatomical Region Laterality Modality Head, Neck N/A Magnetic Resonan ce 01/02/2024 3:10 PM EST Impressions 01/02/2024 3:28 PM EST 1.Findings compatible with scattered subarachnoid hemorrhage within multiple cerebral cortical sulci, right greater than left. Probable hemorrhage within the prepontine cistern, interpeduncular fossa, and within the occipital horns of the lateral ventricles. No hydrocephalus is seen. 2.No diffusion restriction is identified to suggest acute infarct. 3.Findings compatible with chronic microvascular ischemic change. 4.MR angiographic images are limited due to motion artifact. Nonvisualized intracranial portion of the right vertebral artery as was noted on the accompanying CTA examination. No intracranial aneurysm is identified. 5.Right mastoid effusion. Electronically Signed: Hoang Rdz MD 01/02/2024 3:28 PM EST Workstation ID: [id number] Narrative 01/02/2024 3:28 PM EST MRI ANGIOGRAM HEAD WO CONTRAST, MRI BRAIN WO CONTRAST Date of Exam: 01/02/2024 2:00 PM EST Indication: Stroke, follow up. Comparison: Noncontrast head CT and head CTA from the same date. Technique: ??Routine 3-D [id number]-ua-[id number] gradient echo imaging was obtained of the head without contrast administration. FINDINGS: Foci of T2/FLAIR signal hyperintensity are seen within the bilateral hemispheric white matter. There is scattered FLAIR signal hyperintensity within the right greater than left cerebral cortical sulci, within the prepontine cistern, and within the interpeduncular fossa, compatible with known subarachnoid hemorrhage. Probable intraventricular hemorrhage within the occipital horns of the lateral ventricles. No hydrocephalus is seen. Midline structures appear unremarkable. No significant mass effect or midline shift is seen. Diffusion-weighted sequences demonstrate no acute infarct.The visualized intracranial flow-voids appear unremarkable. Right mastoid effusion is present. Paranasal sinuses appear unremarkable. The orbits, globes, retrobulbar soft tissues appear unremarkable. The visualized superficial soft tissues and cervical spine demonstrate no significant abnormality. MR angiographic images are limited due to motion artifact. Nonvisualized intracranial portion of the right vertebral artery as was noted on the accompanying CTA examination. No intracranial aneurysm is identified. Middle cerebral, anterior cerebral, and posterior cerebral arteries appear patent without significant stenosis or abrupt cut off. There is origin of the left posterior cerebral artery. Procedure Note Hoang Rdz MD - 01/02/2024 MRI ANGIOGRAM HEAD WO CONTRAST, MRI BRAIN WO CONTRAST Date of Exam: 01/02/2024 2:00 PM EST Indication: Stroke, follow up. Comparison: Noncontrast head CT and head CTA from the same date. Technique: Routine 3-D cbep-jb-cmyhcq gradient echo imaging was obtainedof the head without contrast administration. FINDINGS: Foci of T2/FLAIR signal hyperintensity are seen within the bilateralhemispheric white matter. There is scattered FLAIR signal hyperintensitywithin the right greater than left cerebral cortical sulci, within theprepontine cistern, and within the interpeduncular fossa, compatible with known subarachnoid hemorrhage.Probable intraventricular hemorrhage within the occipital horns of thelateral ventricles. No hydrocephalus is seen. Midline structures appear unremarkable. No significant mass effect ormidline shift is seen. Diffusion-weighted sequences demonstrate no acuteinfarct.The visualized intracranial flow-voids appear unremarkable. Rightmastoid effusion is present. Paranasal sinuses appear unremarkable. The orbits, globes, retrobulbarsoft tissues appear unremarkable. The visualized superficial soft tissuesand cervical spine demonstrate no significant abnormality. MR angiographic images are limited due to motion artifact. Nonvisualizedintracranial portion of the right vertebral artery as was noted on theaccompanying CTA examination. No intracranial aneurysm is identified.Middle cerebral, anterior cerebral, and posterior cerebral arteries appear patent without significant stenosis orabrupt cut off. There is origin of the left posterior cerebralartery. IMPRESSION: 1.Findings compatible with scattered subarachnoid hemorrhage withinmultiple cerebral cortical sulci, right greater than left. Probablehemorrhage within the prepontine cistern, interpeduncular fossa, andwithin the occipital horns of the lateral ventricles. No hydrocephalus is seen. 2.No diffusion restriction is identified to suggest acute infarct. 3.Findings compatible with chronic microvascular ischemic change. 4.MR angiographic images are limited due to motion artifact. Nonvisualizedintracranial portion of the right vertebral artery as was noted on theaccompanying CTA examination. No intracranial aneurysm is identified. 5.Right mastoid effusion. Electronically Signed: Hoang Rdz MD 01/02/2024 3:28 PM EST Workstation ID: [id number] Hank Hitchcock MD [facility] MRI ORDERABLES Final Res ult * MRI Angiogram Head Without Contrast (01/02/2024 2:49 PM EST) Anatomical Region Laterality Modality Head, Neck N/A Magnetic Resonan ce 01/02/2024 3:10 PM EST Impressions 01/02/2024 3:28 PM EST 1.Findings compatible with scattered subarachnoid hemorrhage within multiple cerebral cortical sulci, right greater than left. Probable hemorrhage within the prepontine cistern, interpeduncular fossa, and within the occipital horns of the lateral ventricles. No hydrocephalus is seen. 2.No diffusion restriction is identified to suggest acute infarct. 3.Findings compatible with chronic microvascular ischemic change. 4.MR angiographic images are limited due to motion artifact. Nonvisualized intracranial portion of the right vertebral artery as was noted on the accompanying CTA examination. No intracranial aneurysm is identified. 5.Right mastoid effusion. Electronically Signed: Hoang Rdz MD 01/02/2024 3:28 PM EST Workstation ID: [id number] Narrative 01/02/2024 3:28 PM EST MRI ANGIOGRAM HEAD WO CONTRAST, MRI BRAIN WO CONTRAST Date of Exam: 01/02/2024 2:00 PM EST Indication: Stroke, follow up. Comparison: Noncontrast head CT and head CTA from the same date. Technique: ??Routine 3-D nllg-pm-kwmzvn gradient echo imaging was obtained of the head without contrast administration. FINDINGS: Foci of T2/FLAIR signal hyperintensity are seen within the bilateral hemispheric white matter. There is scattered FLAIR signal hyperintensity within the right greater than left cerebral cortical sulci, within the prepontine cistern, and within the interpeduncular fossa, compatible with known subarachnoid hemorrhage. Probable intraventricular hemorrhage within the occipital horns of the lateral ventricles. No hydrocephalus is seen. Midline structures appear unremarkable. No significant mass effect or midline shift is seen. Diffusion-weighted sequences demonstrate no acute infarct.The visualized intracranial flow-voids appear unremarkable. Right mastoid effusion is present. Paranasal sinuses appear unremarkable. The orbits, globes, retrobulbar soft tissues appear unremarkable. The visualized superficial soft tissues and cervical spine demonstrate no significant abnormality. MR angiographic images are limited due to motion artifact. Nonvisualized intracranial portion of the right vertebral artery as was noted on the accompanying CTA examination. No intracranial aneurysm is identified. Middle cerebral, anterior cerebral, and posterior cerebral arteries appear patent without significant stenosis or abrupt cut off. There is origin of the left posterior cerebral artery. Procedure Note Hoang Rdz MD - 01/02/2024 MRI ANGIOGRAM HEAD WO CONTRAST, MRI BRAIN WO CONTRAST Date of Exam: 01/02/2024 2:00 PM EST Indication: Stroke, follow up. Comparison: Noncontrast head CT and head CTA from the same date. Technique: Routine 3-D neaf-jm-gohnpg gradient echo imaging was obtainedof the head without contrast administration. FINDINGS: Foci of T2/FLAIR signal hyperintensity are seen within the bilateralhemispheric white matter. There is scattered FLAIR signal hyperintensitywithin the right greater than left cerebral cortical sulci, within theprepontine cistern, and within the interpeduncular fossa, compatible with known subarachnoid hemorrhage.Probable intraventricular hemorrhage within the occipital horns of thelateral ventricles. No hydrocephalus is seen. Midline structures appear unremarkable. No significant mass effect ormidline shift is seen. Diffusion-weighted sequences demonstrate no acuteinfarct.The visualized intracranial flow-voids appear unremarkable. Rightmastoid effusion is present. Paranasal sinuses appear unremarkable. The orbits, globes, retrobulbarsoft tissues appear unremarkable. The visualized superficial soft tissuesand cervical spine demonstrate no significant abnormality. MR angiographic images are limited due to motion artifact. Nonvisualizedintracranial portion of the right vertebral artery as was noted on theaccompanying CTA examination. No intracranial aneurysm is identified.Middle cerebral, anterior cerebral, and posterior cerebral arteries appear patent without significant stenosis orabrupt cut off. There is origin of the left posterior cerebralartery. IMPRESSION: 1.Findings compatible with scattered subarachnoid hemorrhage withinmultiple cerebral cortical sulci, right greater than left. Probablehemorrhage within the prepontine cistern, interpeduncular fossa, andwithin the occipital horns of the lateral ventricles. No hydrocephalus is seen. 2.No diffusion restriction is identified to suggest acute infarct. 3.Findings compatible with chronic microvascular ischemic change. 4.MR angiographic images are limited due to motion artifact. Nonvisualizedintracranial portion of the right vertebral artery as was noted on theaccompanying CTA examination. No intracranial aneurysm is identified. 5.Right mastoid effusion. Electronically Signed: Hoang Rdz MD 01/02/2024 3:28 PM EST Workstation ID: [id number] Malcom Contreras MD IMG MRI ORDERABLES Final Re sult * POC Glucose Once (01/02/2024 11:41 AM EST) Glucose 124 70 - 130 mg/dL 01/02/2024 11:42 AM EST [facility] Blood 01/02/2024 11:4 1 AM EST 01/02/2024 11:42 AM EST Hank Hitchcock MD POINT OF CARE TEST ORDERABLE S Final Result Performing Organization Address City/[facility]/ZIP Co de Phone Number [facility]
[address] [place] [address], [place] [phone] * (ABNORMAL) Phosphorus (01/02/2024 7:31 AM EST) Phosphorus 4.8(H) 2.5 - 4.5 mg/dL 01/02/2024 8:53 AM EST [facility] Blood Venipuncture / Unknown 01/02/2024 7:31 AM EST 01/02/2024 7:57 AM EST Valdemar Curran RETAIL CUST[employer]ER SERVICE REPRESENTATIVE LAB BLOOD ORDERABLES Sarah l Result [facility]
[address] [place] [address], [place] [phone] * (ABNORMAL) CBC Auto Differential (01/02/2024 7:31 AM EST) [facility] WBC 12.19(H) 3.40 - 10.80 10*3/mm3 01/02/2024 8:13 AM EST [facility] RBC 5.20 4.14 - 5.80 10*6/mm3 01/02/2024 8:13 AM [facility] Hemoglobin 14.5 13.0 - 17.7 g/dL 01/02/2024 8:13 AM [facility] Hematocrit 45.7 37.5 - 51.0 % 01/02/2024 8:13 AM [facility] MCV 87.9 79.0 - 97.0 fL 01/02/2024 8:13 AM [facility] MCH 27.9 26.6 - 33.0 pg 01/02/2024 8:13 AM [facility] MCHC 31.7 31.5 - 35.7 g/dL 01/02/2024 8:13 AM [facility] RDW 14.8 12.3 - 15.4 % 01/02/2024 8:13 AM [facility] RDW-SD 47.4 37.0 - 54.0 fl 01/02/2024 8:13 AM [facility] MPV 10.8 6.0 - 12.0 fL 01/02/2024 8:13 AM [facility] Platelets 165 140 - 450 10*3/mm3 01/02/2024 8:13 AM [facility] Neutrophil % 91.7(H) 42.7 - 76.0 % 01/02/2024 8:13 AM [facility] Lymphocyte % 5.0(L) 19.6 - 45.3 % 01/02/2024 8:13 AM [facility] Monocyte % 2.7(L) 5.0 - 12.0 % 01/02/2024 8:13 AM [facility] Eosinophil % 0.0(L) 0.3 - 6.2 % 01/02/2024 8:13 AM EST [facility] Basophil % 0.1 0.0 - 1.5 % 01/02/2024 8:13 AM EST [facility] Immature Grans % 0.5 0.0 - 0.5 % 01/02/2024 8:13 AM EST [facility] Neutrophils, Absolute 11.18(H) 1.70 - 7.00 10*3/mm3 01/02/2024 8:13 AM EST [facility] Lymphocytes, Absolute 0.61(L) 0.70 - 3.10 10*3/mm3 01/02/2024 8:13 AM [facility] Monocytes, Absolute 0.33 0.10 - 0.90 10*3/mm3 01/02/2024 8:13 AM [facility] Eosinophils, Absolute 0.00 0.00 - 0.40 10*3/mm3 01/02/2024 8:13 AM [facility] Basophils, Absolute 0.01 0.00 - 0.20 10*3/mm3 01/02/2024 8:13 AM [facility] Immature Grans, Absolute 0.06(H) 0.00 - 0.05 10*3/mm3 01/02/2024 8:13 AM [facility] nRBC 0.0 0.0 - 0.2 /100 WBC 01/02/2024 8:13 AM [facility] Blood Venipuncture / Unknown 01/02/2024 7:31 AM EST 01/02/2024 7:57 AM EST us Hank Hitchcock MD LAB BLOOD ORDERABLES Final R esult [facility]
[address] [place] [address], * (ABNORMAL) Magnesium (01/02/2024 7:31 AM EST) Magnesium 2.5(H) 1.6 - 2.4 mg/dL 01/02/2024 8:53 AM EST [facility] Blood Venipuncture / Unknown 01/02/2024 7:31 AM EST 01/02/2024 7:57 AM EST Tyrone Vee MD LAB BLOOD ORDERABLES Final Resu lt [facility]
[address] [place] [address], * (ABNORMAL) Basic Metabolic Panel (01/02/2024 7:31 AM EST) Glucose 121(H) 65 - 99 mg/dL 01/02/2024 8:53 AM EST [facility] BUN 15 8 - 23 mg/dL 01/02/2024 8:53 AM [facility] Creatinine 1.38(H) 0.76 - 1.27 mg/dL 01/02/2024 8:53 AM EST [facility] Sodium 144 136 - 145 mmol/L 01/02/2024 8:53 AM [facility] Potassium 4.5 3.5 - 5.2 mmol/L 01/02/2024 8:53 AM [facility] Comment:Slight hemolysis det ected by analyzer. Result may be falsely elevated. Chloride 109(H) 98 - 107 mmol/L 01/02/2024 8:53 AM [facility] CO2 19.0(L) 22.0 - 29.0 mmol/L 01/02/2024 8:53 AM [facility] Calcium 8.3(L) 8.6 - 10.5 mg/dL 01/02/2024 8:53 AM [facility] BUN/Creatinine Ratio 10.9 7.0 - 25.0 01/02/2024 8:53 AM [facility] Anion Gap 16.0(H) 5.0 - 15.0 mmol/L 01/02/2024 8:53 AM [facility] eGFR 52.7(L) >60.0 mL/min/1.7 3 01/02/2024 8:53 AM EST [facility] Blood Venipuncture / Unknown 01/02/2024 7:31 AM EST 01/02/2024 7:57 AM EST Narrative [facility] - 01/02/2024 8:53 AM EST GFR Normal >60 Chronic Kidney Disease <60 Kidney Failure <15 The GFR formula is only valid for adults with stable renal function between ages 18 and 70. us Hank Hitchcock MD LAB BLOOD ORDERABLES Final R esult [facility]
[address] [place] [address], * POC Glucose Once (01/02/2024 4:59 AM EST) Glucose 129 70 - 130 mg/dL 01/02/2024 5:01 AM EST [facility] Blood 01/02/2024 4:59 AM EST 01/02/2024 5:01 AM EST us Hank Hitchcock MD POINT OF CARE TEST ORDERABLE S Final Result Performing Organization Address City/[facility]/ZIP Co de Phone Number [facility]
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 Otherwise normal CT angiogram of the head as above. Electronically Signed: Ivan Jon MD 01/02/2024 10:02 AM EST Workstation ID: [id number] Narrative 01/02/2024 10:[address] ANGIOGRAM HEAD Date of Exam: 01/02/2024 3:00 AM EST Indication: Seizures. Comparison: None available. Technique: CTA of the head was performed after the uneventful intravenous administration of 80 mL Isovue-370. Reconstructed coronal and sagittal images were also obtained. In addition, a 3-D volume rendered image was created for interpretation. Automated exposure control and iterative reconstruction methods were used. Findings: The carotid siphons demonstrate no significant atherosclerotic narrowing. The anterior cerebral arteries are normal in course and caliber bilaterally. The right middle cerebral artery demonstrates no evidence of flow-limiting stenosis, large vessel occlusion or aneurysm. The left middle cerebral artery is similarly normal in course and caliber. The right vertebral artery is not well visualized, appearing occluded. The left vertebral artery and basilar artery are patent. The posterior cerebral arteries are normal in course and caliber bilaterally. Procedure Note Demetrius Jon MD - 01/02/2024 CT ANGIOGRAM HEAD Date of Exam: 01/02/2024 3:00 AM EST Indication: Seizures. Comparison: None available. Technique: CTA of the head was performed after the uneventful intravenousadministration of 80 mL Isovue-370. Reconstructed coronal and sagittalimages were also obtained. In addition, a 3-D volume rendered image wascreated for interpretation. Automated exposure control and iterative reconstruction methods were used. Findings: The carotid siphons demonstrate no significant atherosclerotic narrowing.The anterior cerebral arteries are normal in course and caliberbilaterally. The right middle cerebral artery demonstrates no evidence offlow-limiting stenosis, large vessel occlusion or aneurysm. The left middle cerebral artery is similarly normalin course and caliber. The right vertebral artery is not well visualized,appearing occluded. The left vertebral artery and basilar artery arepatent. The posterior cerebral arteries are normal in course and caliber bilaterally. 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 Otherwise normal CT angiogram of the head as above. Electronically Signed: Ivan Jon MD 01/02/2024 10:02 AM EST Workstation ID: [id number] Arely Rodriguez PA-C IM CT ORDERABLES Final Result * CT Head Without Contrast (01/02/2024 3:14 AM EST) Anatomical Region Laterality Modality Head N/A Computed Tomogra phy 01/02/2024 8:17 AM EST Impressions 01/02/2024 8:25 AM EST Impression: Similar appearance of acute scattered subarachnoid hemorrhage in the right parietal sulci. New or increased trace intraventricular hemorrhage within the dependent portions of the occipital horns. Subtle hyperdense thickening the posterior falx and tentorium, questionably new compared to yesterday's head CT, suspicious for very thin subdural hematomas. There is no significant mass effect. No hydrocephalus. Electronically Signed: Orlin Palencia MD 01/02/2024 8:25 AM EST Workstation ID: [id number] Narrative 01/02/2024 8:[address] HEAD WO CONTRAST Date of Exam: 01/02/2024 3:00 AM EST Indication: seizure. Comparison: Head CT 01/01/2024 Technique: Axial CT images were obtained of the head without contrast administration. ??Automated exposure control and iterative construction methods were used. Findings: Redemonstration of acute subarachnoid hemorrhage scattered among the right parietal sulci. There is a trace amount of acute intraventricular blood products within the dependent portions of the bilateral occipital horns (series 3 image 28, 31). There is hyperdense appearance of the posterior falx and tentorium suspicious for very small/thin subdural hematomas (for example series 3 image 31, series 5 image 59); this is possibly new compared to yesterday's head CT. No significant mass effect. No acute large territory infarct. There are scattered subcortical and periventricular white matter hypodensities which are nonspecific and can be seen in the setting of chronic small vessel ischemic change. There is intracranial atherosclerosis. No hydrocephalus. Normal appearance of the orbits. The paranasal sinuses are clear. There is a small amount of fluid in the right mastoid air cells. No acute or suspicious bony findings. The patient is edentulous. Procedure Note Orlin Palencia MD - 01/02/2024 CT HEAD WO CONTRAST Date of Exam: 01/02/2024 3:00 AM EST Indication: seizure. Comparison: Head CT 01/01/2024 Technique: Axial CT images were obtained of the head without contrastadministration. Automated exposure control and iterative constructionmethods were used. Findings: Redemonstration of acute subarachnoid hemorrhage scattered among the rightparietal sulci. There is a trace amount of acute intraventricular bloodproducts within the dependent portions of the bilateral occipital horns(series 3 image 28, 31). There is hyperdense appearance of the posterior falx and tentorium suspicious forvery small/thin subdural hematomas (for example series 3 image 31, series5 image 59); this is possibly new compared to yesterday's head CT. Nosignificant mass effect. No acute large territory infarct. There are scattered subcortical andperiventricular white matter hypodensities which are nonspecific and canbe seen in the setting of chronic small vessel ischemic change. There isintracranial atherosclerosis. No hydrocephalus. Normal appearance of the orbits. The paranasal sinuses are clear. Thereis a small amount of fluid in the right mastoid air cells. No acute orsuspicious bony findings. The patient is edentulous. IMPRESSION: Impression: Similar appearance of acute scattered subarachnoid hemorrhage in the rightparietal sulci. New or increased trace intraventricular hemorrhage withinthe dependent portions of the occipital horns. Subtle hyperdensethickening the posterior falx and tentorium, questionably new compared to yesterday's head CT, suspiciousfor very thin subdural hematomas. There is no significant mass effect. Nohydrocephalus. Electronically Signed: Orlin Palencia MD 01/02/2024 8:25 AM EST Workstation ID: [id number] us Hank Hitchcock MD IMG CT ORDERABLES Final Resu lt * (ABNORMAL) POC Glucose Once (01/02/2024 12:14 AM EST) Glucose 177(H) 70 - 130 mg/dL 01/02/2024 12:16 AM EST [facility] Blood 01/02/2024 12:1 4 AM EST 01/02/2024 12:16 AM EST us Hank Hitchcock MD POINT OF CARE TEST ORDERABLE S Final Result [facility]
[address] [place] [address], [place] [phone] * EEG AWAKE OR ASLEEP PORTABLE (01/01/2024 7:04 PM EST) Impressions NEUROLOGY - 01/01/2024 7:32 PM EST Diffuse cerebral dysfunction of moderate degree, nonspecific No ongoing seizures are seen This report is transcribed using the [employer] dictation system. ?? Narrative NEUROLOGY - 01/01/2024 7:32 PM EST Reason for referral: 78 y.o.male with seizure Technical Summary: A 19 channel digital EEG was performed using the international 10-20 placement system, including eye leads and EKG leads. Duration: 20 minutes Findings: The patient is awake and variably agitated. ??The background shows diffuse medium amplitude 3-6 Hz intermixed delta and theta activity which is present symmetrically over both hemispheres. ??Eye blink and EMG artifact are seen anteriorly. ??Later on in the study, the patient is given some sedation and there is diminished EMG artifact although the patient remains restless. ??No epileptiform activity is seen. ??No electrographic seizures are seen. ??No rhythmic discharges are present. ??Hyperventilation and photic stimulation are not performed. Video: Available Technical quality: Superior EKG: Irregular, 60-90 bpm SUMMARY: Moderate generalized slow No focal features or epileptiform activity are seen Hank Hitchcock MD NEUROLOGY ORDERABLES Final R esult NEUROLOGY * (ABNORMAL) POC Glucose Once (01/01/2024 6:13 PM EST) Glucose 252(H) 70 - 130 mg/dL 01/01/2024 6:15 PM EST [facility] Blood 01/01/2024 6:13 PM EST 01/01/2024 6:15 PM EST Hank Hitchcock MD POINT OF CARE TEST ORDERABLE S Final Result [facility]
[address] [place] [address], [place] [phone] * CT Head Without Contrast (01/01/2024 5:14 PM EST) Anatomical Region Laterality Modality Head N/A Computed Tomogra phy 01/01/2024 5:20 PM EST Impressions 01/01/2024 5:25 PM EST Impression: Examination limited by patient motion. Findings concerning for subarachnoid hemorrhage along the right parietal lobe. Hypodensity within the right occipital lobe is likely white matter disease however an underlying mass cannot be excluded. Findings were discussed with TRUDI Reid at 5:25 p.m. on 01/01/2024 Electronically Signed: Yemi Thomas MD 01/01/2024 5:25 PM EST Workstation ID: [id number] Narrative 01/01/2024 5:[address] HEAD WO CONTRAST Date of Exam: 01/01/2024 5:00 PM EST Indication: Seizure. Comparison: None available. Technique: Axial CT images were obtained of the head without contrast administration. ??Automated exposure control and iterative construction methods were used. Findings: Examination limited by patient motion. Persistent high density involving the sulci of the right parietal lobe concerning for subarachnoid hemorrhage. Right occipital lobe hypodensity may represent white matter changes however given the patient's motion and underlying mass cannot be excluded. No comparison imaging available. Girard-white matter differentiation is maintained without evidence of an acute infarction. Multiple foci of decreased attenuation are present within the subcortical, deep cerebral, and periventricular white matter consistent with chronic small vessel/microangiopathic ischemic changes. No extra-axial mass or collection. The ventricles and sulci are prominent commensurate with involutional changes. The posterior fossa appears grossly normal. Sellar and suprasellar structures are normal. Orbital and periorbital soft tissues are normal. The paranasal sinuses, ethmoid air cells, and mastoid air cells are aerated. The bony calvarium is intact. Procedure Note Yemi Thomas MD - 01/01/2024 CT HEAD WO CONTRAST Date of Exam: 01/01/2024 5:00 PM EST Indication: Seizure. Comparison: None available. Technique: Axial CT images were obtained of the head without contrastadministration. Automated exposure control and iterative constructionmethods were used. Findings: Examination limited by patient motion. Persistent high densityinvolving the sulci of the right parietal lobe concerning for subarachnoidhemorrhage. Right occipital lobe hypodensity may represent white matterchanges however given the patient's motion and underlying mass cannot be excluded. No comparisonimaging available. Girard-white matter differentiation is maintained withoutevidence of an acute infarction. Multiple foci of decreased attenuationare present within the subcortical, deep cerebral, and periventricular white matter consistent with chronicsmall vessel/microangiopathic ischemic changes. No extra-axial mass orcollection. The ventricles and sulci are prominent commensurate withinvolutional changes. The posterior fossa appears grossly normal. Sellar and suprasellar structures are normal. Orbital and periorbital soft tissues are normal. The paranasal sinuses,ethmoid air cells, and mastoid air cells are aerated. The bony calvariumis intact. IMPRESSION: Impression: Examination limited by patient motion. Findings concerning forsubarachnoid hemorrhage along the right parietal lobe. Hypodensity withinthe right occipital lobe is likely white matter disease however anunderlying mass cannot be excluded. Findings were discussed with TRUDI Reid at 5:25 p.m. on 01/01/2024 Electronically Signed: Yemi Thomas MD 01/01/2024 5:25 PM EST Workstation ID: [id number] Tyrone Vee MD IM CT ORDERABLES Final Result * (ABNORMAL) Basic Metabolic Panel (01/01/2024 3:39 PM EST) Glucose 202(H) 65 - 99 mg/dL 01/01/2024 4:18 PM EST [facility] BUN 19 8 - 23 mg/dL 01/01/2024 4:18 PM EST [facility] Creatinine 1.43(H) 0.76 - 1.27 mg/dL 01/01/2024 4:18 PM EST [facility] Sodium 140 136 - 145 mmol/L 01/01/2024 4:18 PM EST [facility] Potassium 4.0 3.5 - 5.2 mmol/L 01/01/2024 4:18 PM EST [facility] Comment:Slight hemolysis det ected by analyzer. Result may be falsely elevated. Chloride 103 98 - 107 mmol/L 01/01/2024 4:18 PM EST [facility] CO2 13.0(L) 22.0 - 29.0 mmol/L 01/01/2024 4:18 PM EST [facility] Calcium 8.6 8.6 - 10.5 mg/dL 01/01/2024 4:18 PM EST [facility] BUN/Creatinine Ratio 13.3 7.0 - 25.0 01/01/2024 4:18 PM EST [facility] Anion Gap 24.0(H) 5.0 - 15.0 mmol/L 01/01/2024 4:18 PM EST [facility] eGFR 50.5(L) >60.0 mL/min/1.7 3 01/01/2024 4:18 PM EST [facility] Blood Structure of left upper limb / Unknown Line / Unknown 01/01/2024 3:39 PM EST 01/01/2024 3:53 PM EST Narrative [facility] - 01/01/2024 4:18 PM EST GFR Normal >60 Chronic Kidney Disease <60 Kidney Failure <15 The GFR formula is only valid for adults with stable renal function between ages 18 and 70. Kenna Manley PA-C LAB BLOOD ORDERABLES Final Result [facility]
[address] [place] [address], * (ABNORMAL) POC Glucose Once (01/01/2024 3:31 PM EST) Glucose 167(H) 70 - 130 mg/dL 01/01/2024 3:33 PM EST [facility] Blood 01/01/2024 3:31 PM EST 01/01/2024 3:33 PM EST Hank Hitchcock MD POINT OF CARE TEST ORDERABLE S Final Result [facility]
[address] [place] [address], [place] [phone] * [place] C Arm During Surgery (01/01/2024 2:50 PM EST) Narrative SYSTEMGENERATED, DOCUMENTATION - 01/01/2024 2:51 PM EST This procedure was auto-finalized with no dictation required. Hank Hitchcock MD IM FLUOROSCOPY ORDERABLES F inal Result * SCANNED - TELEMETRY (01/01/2024) [facility] ECG ORDERABLES Final Result * SCANNED - TELEMETRY (01/01/2024) [facility] Final Result documented in this encounter Visit Diagnoses Diagnosis Spinal stenosis of lumbar region with neurogenic claudication- Primary Spinal stenosis of lumbar region Spinal stenosis of lumbar region, unspecified whether neurogenic claudication present documented in this encounter Admitting Diagnoses Diagnosis Spinal stenosis of lumbar region Spinal stenosis of lumbar region with neurogenic claudication Lumbar stenosis Spinal stenosis of lumbar region Seizure Other convulsions documented in this encounter Administered Medications Inactive Administered Medications - up to 3 most recent administrations Medication Order MAR Action Action Date Dose Rate Site acetaminophen (TYLENOL) tablet 1,000 mg 1,000 mg, Oral, Every 6 Hours PRN, Mild Pain, Starting on 01/04/24 at 1749, If given for fever, use fever parameter: fever greater than 100.4 ??F Based on patient request - if ordered for moderate or severe pain, provider allows for administration of a medication prescribed for a lower pain scale. Do not exceed 4 grams of acetaminophen in a 24 hr period. Max dose of 2gm for AST/ALT greater than 120 units/L. If given for pain, use the following pain scale: Mild Pain = Pain Score of 1-3, CPOT 1-2 Moderate Pain = Pain Score of 4-6, CPOT 3-4 Severe Pain = Pain Score of 7-10, CPOT 5-8 Given 01/07/2024 6:16 AM EST 1,000 mg Given 01/06/2024 9:17 AM EST 1,000 mg Given 01/05/2024 12:07 PM EST 1,000 mg allopurinol (ZYLOPRIM) tablet 100 mg 100 mg, Oral, Daily, First dose on Sat01/01/24 at 1715, ([facility]) Take with food if GI upset occurs. Given 01/07/2024 8:16 AM EST 100 mg Given 01/06/2024 9:17 AM EST 100 mg Given 01/05/2024 9:00 AM EST 100 mg atorvastatin (LIPITOR) tablet 40 mg 40 mg, Oral, Daily, First dose on Sat01/01/24 at 2100, Avoid grapefruit juice. Given 01/06/2024 8:19 PM EST 40 mg Given 01/05/2024 8:37 PM EST 40 mg Given 01/04/2024 9:32 PM EST 40 mg docusate sodium (COLACE) capsule 100 mg 100 mg, Oral, 2 Times Daily PRN, Constipation, Starting on Sat01/01/24 at 1626, Swallow whole. Do not open, crush, or chew capsule. Given 01/05/2024 9:00 AM EST 100 mg Enoxaparin Sodium (LOVENOX) syringe 40 mg 40 mg, Subcutaneous, Daily, First dose on Sat01/02/24 at 2100, Give subcutaneous in abdomen only. Do not massage site after injection., Indications: VTE ProphylaxisIndications:VTE Prophylaxis Given 01/06/2024 8:19 PM EST 40 mg Right Lower Abdomen Given 01/05/2024 8:38 PM EST 40 mg Ri ght Upper Abdomen Given 01/04/2024 9:32 PM EST 40 mg Ri ght Lower Abdomen floseal injection As Needed, Starting on Sat01/01/24 at 1357 Given 01/01/2024 1:57 PM EST 1 0 mL HYDROcodone-acetaminophen (NORCO) 5-325 MG per tablet 1 tablet 1 tablet, Oral, Every 6 Hours PRN, Moderate Pain, Starting on Sat01/03/24 at 1528, [[facility]] Do not exceed 4 grams of acetaminophen in a 24 hr period. If given for pain, use the following pain scale: Mild Pain = Pain Score of 1-3, CPOT 1-2 Moderate Pain = Pain Score of 4-6, CPOT 3-4 Severe Pain = Pain Score of 7-10, CPOT 5-8 [KHALIF] Do not exceed 4 grams of acetaminophen in a 24 hr period. Max dose of 2gm for AST/ALT greater than 120 units/L If given for pain, use the following pain scale: Mild Pain = Pain Score of 1-3, CPOT 1-2 Moderate Pain = Pain Score of 4-6, CPOT 3-4 Severe Pain = Pain Score of 7-10, CPOT 5-8 Given 01/05/2024 2:22 PM EST 1 tablet levETIRAcetam (KEPPRA) tablet 500 mg 500 mg, Oral, Every 12 Hours Scheduled, First dose on Sat01/06/24 at 2100, First dose at 2100 For tube route administration, disperse crushed tablets in 10 mL of water, shake for 5 minutes to dissolve, and administer immediately via enteral feeding tube. Caution: Look alike/sound alike drug alert. Given 01/07/2024 8:16 AM EST 500 mg Given 01/06/2024 8:19 PM EST 500 mg lidocaine-EPINEPHrine (XYLOCAINE W/EPI) 0.5 %-[id number] injection As Needed, Starting on Sat01/01/24 at 1357 Given 01/01/2024 1:57 PM EST 5 0 mL ondansetron (ZOFRAN) injection 4 mg 4 mg, Intravenous, Every 6 Hours PRN, Nausea, Vomiting, Starting on Sat01/01/24 at 1626, If BOTH ondansetron (ZOFRAN) and promethazine (PHENERGAN) are ordered use ondansetron first and THEN promethazine IF ondansetron is ineffective. ondansetron ODT (ZOFRAN-ODT) disintegrating tablet 4 mg 4 mg, Oral, Every 6 Hours PRN, Nausea, Vomiting, Starting on Sat01/01/24 at 1626, If BOTH ondansetron (ZOFRAN) and promethazine (PHENERGAN) are ordered use ondansetron first and THEN promethazine IF ondansetron is ineffective. Place on tongue and allow to dissolve. pantoprazole (PROTONIX) EC tablet 40 mg 40 mg, Oral, Every [employer] Overhaul, First dose on Sat01/07/24 at 0600, Swallow whole; do not crush, split, or chew. Given 01/07/2024 6:08 AM EST 40 mg polyethylene glycol (MIRALAX) packet 17 g 17 g, Oral, Daily PRN, Constipation, Starting on Sat01/01/24 at 1626, Dissolve in water Use 4-8 ounces of water, tea, or juice for each 17 gram dose., Indications: ConstipationIndications:Constipation Given 01/07/2024 8:16 AM EST 17 g Given 01/06/2024 9:17 AM EST 17 g Given 01/05/2024 9:01 AM EST 17 g Potassium Replacement - Follow Nurse / BPA Driven Protocol Open Order & Select S Electrolyte Replacement Protocol Algorithm to View Details predniSONE (DELTASONE) tablet 40 mg 40 mg, Oral, Daily With Breakfast, First dose on Sat01/07/24 at 1215, For 2 doses, Take with food. Given 01/07/2024 12:12 PM EST 40 mg probenecid (BENEMID) tablet 250 mg 250 mg, Oral, Daily, First dose on Sat01/01/24 at 1715 Given 01/07/2024 8:16 AM EST 250 mg Given 01/06/2024 9:15 AM EST 250 mg Given 01/05/2024 9:00 AM EST 250 mg sennosides-docusate (PERICOLACE) 8.6-50 MG per tablet 1 tablet 1 tablet, Oral, Nightly PRN, Constipation, Starting on Sat01/01/24 at 1626 Given 01/07/2024 8:16 AM EST 1 tablet Given 01/06/2024 9:16 AM EST 1 tablet sodium chloride (NS) irrigation solution As Needed, Starting on Sat01/01/24 at 1357 Given 01/01/2024 1:57 P M EST 1,000 mL sodium chloride 0.9 % flush 10 mL 10 mL, Intravenous, As Needed, Line Care, Starting on Sat01/01/24 at 1626 Given 01/06/2024 9:17 AM EST 10 mL Given 01/06/2024 5:34 AM EST 10 mL Given 01/06/2024 5:30 AM EST 10 mL sodium chloride 0.9 % flush 3 mL 3 mL, Intravenous, Every 12 Hours Scheduled, First dose on Sat01/01/24 at 2100 Given 01/07/2024 8:17 AM EST 3 mL Given 01/06/2024 8:19 PM EST 3 mL Given 01/06/2024 9:17 AM EST 3 mL sterile water irrigation solution As Needed, Starting on Sat01/01/24 at 1358 Given 01/01/2024 1:58 P M EST 1,000 mL documented in this encounter Active and Recently Administered Medications Times are shown in EST. Scheduled Medication Order 01/05/2024 01/06/2024 01/07/2024 allopurinol (ZYLOPRIM) tablet 100 mg 100 mg, Oral, Daily, First dose on Sat01/01/24 at 1715, ([facility]) Take with food if GI upset occurs. 0900 (Given - Provider: Radha Rogers, TRUDI) 0917 (Given - Provider: Lorna Phelan, TRUDI) 0816 (Given - Provider: Lorna Phelan, RN) atorvastatin (LIPITOR) tablet 40 mg 40 mg, Oral, Daily, First dose on Sat01/01/24 at 2100, Avoid grapefruit juice. 2036 (Given - Provider: Tonia Stephens, RN) 2018 (Given - Provider: Tonia Stephens, RN) bisacodyl (DULCOLAX) suppository 10 mg (COMPLETED) 10 mg, Rectal, Once, On Sat01/06/24 at 0915, For 1 dose, Hold for diarrhea 0916 (Given - Provider: Lorna Phelan, RN) colchicine tablet 0.6 mg (COMPLETED) 0.6 mg, Oral, Once, On Sat01/05/24 at 1245, For 1 dose, Group 2 ([place]) Hazardous Drug - Reproductive Risk Only - See Handling Guide 1207 (Given - Provider: Radha Rogers, TRUDI) diphenhydrAMINE (BENADRYL) injection 12.5 mg (COMPLETED) 12.5 mg, Intravenous, Once, On Sat01/07/24 at 1315, For 1 dose, 25 mg may be given IV push over less than 1 minute. Caution: Look alike/sound alike drug alert. This med may be ordered in other forms and routes. Before giving verify the last time the drug was given by any route/form. 1315 (Given - Provider: Lorna Phelan, TRUDI) Enoxaparin Sodium (LOVENOX) syringe 40 mg 40 mg, Subcutaneous, Daily, First dose on Sat01/02/24 at 2100, Give subcutaneous in abdomen only. Do not massage site after injection., Indications: VTE Prophylaxis 2037 (Given - Provider: Tonia Stephens RN) 2019 (Given - Provider: Tonia Stephens RN) levETIRAcetam (KEPPRA) injection 250 mg (CANCELED) 250 mg, Intravenous, Every 12 Hours, First dose (after last modification) on Sat01/02/24 at 1700, For 17 doses, Caution: Look alike/sound alike drug alert. *When giving as IV push: Do not exceed 1000 mg/min.* 0459 (Given - Provider: Marce Prado RN)171 (Given - Provider: Radha Rogers RN) 0532 (Given - Provider: Tonia Stephens RN) levETIRAcetam (KEPPRA) tablet 500 mg 500 mg, Oral, Every 12 Hours Scheduled, First dose on Sat01/06/24 at 2100, First dose at 2100 For tube route administration, disperse crushed tablets in 10 mL of water, shake for 5 minutes to dissolve, and administer immediately via enteral feeding tube. Caution: Look alike/sound alike drug alert. 2019 (Given - Provider: Tonia Stephens RN) 0816 (Given - Provider: Lorna Phelan RN) pantoprazole (PROTONIX) EC tablet 40 mg 40 mg, Oral, Every Aircraft Engine Mechanic Overhaul, First dose on Sat01/07/24 at 0600, Swallow whole; do not crush, split, or chew. 0608 (Given - Provider: Tonia Stephens RN) pantoprazole (PROTONIX) injection 40 mg (CANCELED) 40 mg, Intravenous, Every Aircraft Engine Mechanic Overhaul, First dose on Sat01/02/24 at 0600, Dilute with 10 mL of 0.9% NaCl and give IV push over 2 minutes., Indications: Gastroesophageal Reflux Disease 0459 (Given - Provider: Marce Prado RN - Comment: [facility])0600 (Canceled Entry - Provider: Marce Prado RN) 0529 (Given - Provider: Tonia Stephens RN) potassium chloride (K-DUR,KLOR-CON) CR tablet 40 mEq (COMPLETED) 40 mEq, Oral, Every 4 Hours, First dose on Sat01/06/24 at 0930, For 2 doses, Do not crush or chew the capsules or tablets. The drug may not work as designed if the capsule or tablet is crushed or chewed. Swallow whole. Take with food. 0916 (Given - Provider: Lorna Phelan RN)1349 (Given - Provider: Lorna Phelan RN) predniSONE (DELTASONE) tablet 40 mg (COMPLETED) 40 mg, Oral, Once, On Sat01/06/24 at 1000, For 1 dose, Take with food. 0945 (Given - Provider: Lorna Phelan RN) predniSONE (DELTASONE) tablet 40 mg 40 mg, Oral, Daily With Breakfast, First dose on Sat01/07/24 at 1215, For 2 doses, Take with food. 1212 (Given - Provider: Lorna Phelan RN) probenecid (BENEMID) tablet 250 mg 250 mg, Oral, Daily, First dose on Sat01/01/24 at 1715 0900 (Given - Provider: Radha Rogers RN) 0915 (Given - Provider: Lorna Phelan RN) 0816 (Given - Provider: Lorna Phelan RN) sodium chloride 0.9 % flush 3 mL 3 mL, Intravenous, Every 12 Hours Scheduled, First dose on Sat01/01/24 at 2100 0901 (Given - Provider: Radha Rogers RN)2037 (Given - Provider: Tonia Stephens, TRUDI) 0917 (Given - Provider: Lorna Phelan RN)2019 (Given - Provider: Tonia Stephens RN) 0817 (Given - Provider: Lorna Phelan, TRUDI) PRN Medication Order 01/05/2024 01/06/2024 01/07/2024 acetaminophen (TYLENOL) tablet 1,000 mg 1,000 mg, Oral, Every 6 Hours PRN, Mild Pain, Starting on Sat01/04/24 at 1749, If given for fever, use fever parameter: fever greater than 100.4 ??F Based on patient request - if ordered for moderate or severe pain, provider allows for administration of a medication prescribed for a lower pain scale. Do not exceed 4 grams of acetaminophen in a 24 hr period. Max dose of 2gm for AST/ALT greater than 120 units/L. If given for pain, use the following pain scale: Mild Pain = Pain Score of 1-3, CPOT 1-2 Moderate Pain = Pain Score of 4-6, CPOT 3-4 Severe Pain = Pain Score of 7-10, CPOT 5-8 1207 (Given - Provider: Radha Rogers RN) 0917 (Given - Provider: Lorna Phelan RN) 0616 (Given - Provider: Tonia Stephens RN) docusate sodium (COLACE) capsule 100 mg 100 mg, Oral, 2 Times Daily PRN, Constipation, Starting on Sat01/01/24 at 1626, Swallow whole. Do not open, crush, or chew capsule. 0900 (Given - Provider: Radha Rogers RN) HYDROcodone-acetaminophen (NORCO) 5-325 MG per tablet 1 tablet 1 tablet, Oral, Every 6 Hours PRN, Moderate Pain, Starting on Sat01/03/24 at 1528, [KHALIF] Do not exceed 4 grams of acetaminophen in a 24 hr period. If given for pain, use the following pain scale: Mild Pain = Pain Score of 1-3, CPOT 1-2 Moderate Pain = Pain Score of 4-6, CPOT 3-4 Severe Pain = Pain Score of 7-10, CPOT 5-8 [KHALIF] Do not exceed 4 grams of acetaminophen in a 24 hr period. Max dose of 2gm for AST/ALT greater than 120 units/L If given for pain, use the following pain scale: Mild Pain = Pain Score of 1-3, CPOT 1-2 Moderate Pain = Pain Score of 4-6, CPOT 3-4 Severe Pain = Pain Score of 7-10, CPOT 5-8 1422 (Given - Provider: Radha Rogers RN) 0945 (Return to Cabinet - Provider: Lorna Phelan RN) magnesium hydroxide (MILK OF MAGNESIA) 400 MG/5ML suspension 30 mL 30 mL, Oral, Daily PRN, Constipation, Starting on Sat01/01/24 at 1626 naloxone (NARCAN) injection 0.4 mg(Linked Group 1) 0.4 mg, Intravenous, Every 5 Minutes PRN, Respiratory Depression, Starting on Sat01/01/24 at 1626, If respiratory rate is less than 8 breaths/minute or patient is difficult to arouse stop any narcotics and contact physician. Administer slow IV push. Repeat as ordered until patient's respiratory rate is greater than 12 breaths/minute. ondansetron (ZOFRAN) injection 4 mg(Linked Group 2) 4 mg, Intravenous, Every 6 Hours PRN, Nausea, Vomiting, Starting on Sat01/01/24 at 1626, If BOTH ondansetron (ZOFRAN) and promethazine (PHENERGAN) are ordered use ondansetron first and THEN promethazine IF ondansetron is ineffective. ondansetron ODT (ZOFRAN-ODT) disintegrating tablet 4 mg(Linked Group 2) 4 mg, Oral, Every 6 Hours PRN, Nausea, Vomiting, Starting on Sat01/01/24 at 1626, If BOTH ondansetron (ZOFRAN) and promethazine (PHENERGAN) are ordered use ondansetron first and THEN promethazine IF ondansetron is ineffective. Place on tongue and allow to dissolve. polyethylene glycol (MIRALAX) packet 17 g 17 g, Oral, Daily PRN, Constipation, Starting on Sat01/01/24 at 1626, Dissolve in water Use 4-8 ounces of water, tea, or juice for each 17 gram dose., Indications: Constipation 0901 (Given - Provider: Radha Rogers RN) 0917 (Given - Provider: Lorna Phelan RN) 0816 (Given - Provider: Lorna Phelan, TRUDI) Potassium Replacement - Follow Nurse / BPA Driven Protocol Open Order & Select [facility] Electrolyte Replacement Protocol Algorithm to View Details sennosides-docusate (PERICOLACE) 8.6-50 MG per tablet 1 tablet 1 tablet, Oral, Nightly PRN, Constipation, Starting on Sat01/01/24 at 1626 0916 (Given - Provider: Lorna Phelan RN) 0816 (Given - Provider: Lorna Phelan RN) sodium chloride 0.9 % flush 10 mL 10 mL, Intravenous, As Needed, Line Care, Starting on Sat01/01/24 at 1626 0530 (Given - Provider: Tonia Stephens RN)0534 (Given - Provider: Tonia Stephens RN)0917 (Given - Provider: Lorna Phelan RN) sodium chloride 0.9 % infusion 40 mL 40 mL, Intravenous, at 100 mL/hr, As Needed, Line Care, Starting on Sat01/01/24 at 1626, Following administration of an IV intermittent medication, flush line with 40mL NS at 100mL/hr. Linked Groups Order Group 1: HYDROmorphone (DILAUDID) injection 0.5 mg (CANCELED) 0.5 mg, Intravenous, Every 2 Hours PRN, Severe Pain, Starting on Sat01/01/24 at 1626, For 5 days, Based on patient request - if ordered for moderate or severe pain, provider allows for administration of a medication prescribed for a lower pain scale. If given for pain, use the following pain scale: Mild Pain = Pain Score of 1-3, CPOT 1-2 Moderate Pain = Pain Score of 4-6, CPOT 3-4 Severe Pain = Pain Score of 7- 10, CPOT 5-8 And naloxone (NARCAN) injection 0.4 mgJump to med 0.4 mg, Intravenous, Every 5 Minutes PRN, Respiratory Depression, Starting on Sat01/01/24 at 1626, If respiratory rate is less than 8 breaths/minute or patient is difficult to arouse stop any narcotics and contact physician. Administer slow IV push. Repeat as ordered until patient's respiratory rate is greater than 12 breaths/minute. Group 2: ondansetron ODT (ZOFRAN-ODT) disintegrating tablet 4 mgJump to med 4 mg, Oral, Every 6 Hours PRN, Nausea, Vomiting, Starting on Sat01/01/24 at 1626, If BOTH ondansetron (ZOFRAN) and promethazine (PHENERGAN) are ordered use ondansetron first and THEN promethazine IF ondansetron is ineffective. Place on tongue and allow to dissolve. Or ondansetron (ZOFRAN) injection 4 mgJump to med 4 mg, Intravenous, Every 6 Hours PRN, Nausea, Vomiting, Starting on Sat01/01/24 at 1626, If BOTH ondansetron (ZOFRAN) and promethazine (PHENERGAN) are ordered use ondansetron first and THEN promethazine IF ondansetron is ineffective. documented in this encounter Care Teams Independent Producer Relationship Specialty Start Date End Date Robinson Manley MD [address] [place] [address] PCP - General Family Medicine 07/09/23 documented as of this encounter
--- OUTSIDE RECORDS SUMMARY | 2024-09-29 14:37 | XMS_ITS | Encounter Summary ---
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 Name Role Phone Robinson Manley MD Primary Care Provider [phone] Reason for Visit * Auth/Cert (Routine) Specialty Diagnoses / Procedures Referred By Contac t Referred To Contact Diagnoses Spinal stenosis of lumbar region, unspecified whether neurogenic claudication present Spinal stenosis of lumbar region, unspecified whether neurogenic claudication present [M48.061] Procedures [place] FACETECTOMY & FORAMOTOMY 1 VRT SGM LUMBAR LUMBAR LAMINECTOMY DISCECTOMY DECOMPRESSIO, N POSTERIOR 1-2 LEVELS, L3-4 Referral ID Status Reason Start Date Expiration Date Visits Re quested Visits Authorized [id number] 1 1 Encounter Details Date Type Department Care Team (Late st Contact Info) Description 01/01/2024 1:31 PM EST Anesthesia Event [facility] OR [address] [place] [address] Blake Sullivan MD [address] [place] [id number] Anesthesia Record Procedure Summary Procedure Name Responsible Anesthesiologist Anesthesia Start Time Anesthesia Stop Time LUMBAR LAMINECTOMY L3-4 (Spine Lumbar) Blake Sullivan MD 01/01/24 1331 01/01/24 1504 Events Date Time Event Comment 01/01/2024 1128 1331 AN Equip Check 1331 An Start The patient was reevaluated immediately before moderate or deep sedation use and before anesthesia induction. 1331 An Start Data 1342 An Induction 1344 An Intubation 1456 An Extubation 1458 an stop data 1504 Handoff to RN The following has been completed: 1. Identification of Patient, brunner family member(s) or patient surrogate 2. Identification of the responsible Practitioner (primary service) 3. Discussion of the pertinent/attainable medical history 4. Discussion of the surgical/procedure course (procedure, reason for surgery, procedure performed) 5. Intraoperative anesthetic management and issue/concerns to include things such as airway, hemodynamics, narcotic, sedation level and paralytic management and intravenous fluids/blood products and urine output during the procedure 6. Expectations/Plans for the early post-procedure period to include things such as anticipated course (anticipatory guidance), complications, need for laboratory or ECG and medication administration 7. Opportunity for questions and acknowledgment of understanding of report from the receiving PACU/ICU team 1504 An Stop Meds Name Total Propofol 10 MG/ML 120 mg lidocaine PF 1% 1 % 50 mg rocuronium 50 MG/5ML 50 mg dexAMETHasone 4 MG/ML 10 mg ceFAZolin 2000 mg IVPB in 100 mL NS (MBP ) 2 g fentaNYL citrate (PF) 100 MCG/2ML 100 mc g ondansetron 2 mg/mL 4 mg sugammadex 200 MG/2ML 200 mg labetalol 5 MG/ML 5 mg sodium chloride 0.9 % infusion 800 mL * Agents Name O2 N2O Air Desflurane * Blood No blood administrations on file. Lines, Drains, and Airways Type Details Placement Removal Wound 01/01/24; lumbar spi ne; Incision; lumbar laminectomy 01/01/24 0000 by Day Urena RN Closed/Suction Drain 01/01/24; Yes; 1; Inferior, Midline; Back; Accordion; 10 Fr.; Per order 01/01/24 0000 by Day Urena RN 01/03/24 1010 by Ryan Carballo RN Peripheral IV Placement Date: 01/01/24; Placement Time: 1120; Catheter Size: 18 G; Orientation: Distal, Posterior, Right; Location: Forearm; Site Prep: Chlorhexidine; Local Anes: Injectable; Technique: Anatomical landmarks; Inserted by: Clarita Brady RN; Insertion Attempts: 1; Patient Tolerance: Tolerated well; Removal Date: 01/02/24; Removal Time: 2300 01/01/24 1120 by Clarita Brady RN 01/02/24 2300 by Jesús Kohler RN ETT Placement Date: 01/01/24; Placement Time: 135 (created via procedure documentation); Tube Size: 7.5 mm; Blade Size: 4; Location: Oral; Removal Date: 01/01/24; Removal Time: 1456 01/01/24 1356 by Junior Arturo Iglesias CRNA 01/01/24 1456 by Junior Arturo Iglesias CRNA documented in this encounter Social History Tobacco Use Types Packs/Day Years Used Date Smoking Tobacco: Former Cigarettes Q uit: 1973 Passive Smoke Exposure: Past Smokeless Tobacco: Never Alcohol Use Standard Drinks/Week Comments Yes 0 (1 standard drink = 0.6 oz pur e alcohol) BEER PER [facility] Utilities Answer Date Recorded In the past 12 months has e electric, gas, oil, or water company [...] or training? Not on file Preferred Language Belizean 01/03/2024 Sex and Gender Information Value Date Recorded Sex Assigned at Not on file Legal Sex Male 1:15 PM EDT Gender Identity Not on file Sexual Orientation Not on file documented as of this encounter OR Notes * Anesthesia Postprocedure Evaluation - Junior Arturo Iglesias CRNA - 01/01/2024 3:04 PM EST Patient: [place] Procedure Summary Date: 01/01/24 Room / Location: [facility] Anesthesia Start: 1331 Anesthesia Stop: 1504 Procedure: LUMBAR LAMINECTOMY L3-4 (Spine Lumbar) Diagnosis: Spinal stenosis of lumbar region, unspecified whether neurogenic claudication present (Spinal stenosis of lumbar region, unspecified whether neurogenic claudication present [M48.061]) Surgeons: Hank Guzman MD Provider: Blake Sullivan MD Anesthesia Type: general ASA Status: 3 Anesthesia Type: general Vitals Vitals Value Taken Time BP 105/86 01/01/24 1501 Temp Pulse 94 01/01/24 1504 Resp SpO2 95 % 01/01/24 1504 Vitals shown include unfiled device data. Post Anesthesia Care and Evaluation Patient location during evaluation: PACU Patient participation: complete - patient participated Level of consciousness: awake and alert Pain management: adequate Airway patency: patent Anesthetic complications: No anesthetic complications PONV Status: none Cardiovascular status: hemodynamically stable and acceptable Respiratory status: nonlabored ventilation, acceptable and nasal cannula Hydration status: acceptable Comments: 97.1 [id number] * Anesthesia Procedure Notes - Junior Arturo Iglesias CRNA - 01/01/2024 1:56 PM EST Associated Order(s): Airway Airway Urgency: elective Date/Time: 01/01/2024 1:56 PM Airway not difficult General Information and Staff Patient location during procedure: OR SPECIMEN PREPARATION ASSISTANT/CAA: Junior Arturo Iglesias CRNA Indications and Patient Condition Indications for airway management: airway protection Preoxygenated: yes MILS not maintained throughout Mask difficulty assessment: 1 - vent by mask Final Airway Details Final airway type: endotracheal airway Successful airway: ETT Cuffed: yes Successful intubation technique: direct laryngoscopy Endotracheal tube insertion site: oral Blade: Jamari Blade size: 4 ETT size (mm): 7.5 Cormack-Lehane Classification: grade I - full view of glottis Placement verified by: chest auscultation and capnometry Measured from: lips ETT/EBT to lips (cm): 20 Number of attempts at approach: 1 Assessment: lips, teeth, and gum same as pre-op and atraumatic intubation Additional Comments Negative epigastric sounds, Breath sound equal bilaterally with symmetric chest rise and fall * Anesthesia Preprocedure Evaluation - Blake Sullivan MD - 01/01/2024 11:27 AM EST Anesthesia Evaluation Airway Mallampati: I TM distance: >3 FB Neck ROM: full No difficulty expected Dental Pulmonary (+) ,shortness of breath Cardiovascular ECG reviewed (+) hypertension, valvular problems/murmurs MR, CAD, dysrhythmias Atrial Fib ROS comment: Non obstructive CAD Neuro/Psych GI/Hepatic/Renal/Endo (+) GERD, renal disease- Musculoskeletal 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 Plan discussed with SPECIMEN PREPARATION ASSISTANT. CODE STATUS: documented in this encounter Plan of Treatment Upcoming Encounters Date Type Department Care Team (Late st Contact Info) Description 12/15/2024 8:30 AM EST Office Visit [facility] [address] [place] [id number] Hannah Martinez APRN [address] [place] [address] 02/04/2025 9:00 AM EDT Office Visit [facility]UR[facility] [address] [facility] [address] [place] [address] Britany Braxton MD [address] [facility] [address] [place] [address] documented as of this encounter Procedures Procedure Name Priority Date/Time Associated Diagnosis Comments ANESTHESIA INTUBATION Routine 01/01/2024 1:56 PM EST documented in this encounter Results * BH AN ETT AIRWAY (01/01/2024 1:56 PM EST) Narrative Junior Arturo Iglesias CRNA - 01/01/2024 1:56 PM EST Junior Arturo Iglesias CRNA ? 01/01/2024 ??1:56 PM Airway Urgency: elective Date/Time: 01/01/2024 1:56 PM Airway not difficult General Information and Staff Patient location during procedure: OR SPECIMEN PREPARATION ASSISTANT/CAA: Junior Arturo Iglesias CRNA Indications and Patient Condition Indications for airway management: airway protection Preoxygenated: yes MILS not maintained throughout Mask difficulty assessment: 1 - vent by mask Final Airway Details Final airway type: endotracheal airway Successful airway: ETT Cuffed: yes Successful intubation technique: direct laryngoscopy Endotracheal tube insertion site: oral Blade: Jamari Blade size: 4 ETT size (mm): 7.5 Cormack-Lehane Classification: grade I - full view of glottis Placement verified by: chest auscultation and capnometry Measured from: lips ETT/EBT ??to lips (cm): 20 Number of attempts at approach: 1 Assessment: lips, teeth, and gum same as pre-op and atraumatic intubation Additional Comments Negative epigastric sounds, Breath sound equal bilaterally with symmetric chest rise and fall Junior Arturo Iglesias CRNA ANESTHESIA ORDERABLES Fin al Result documented in this encounter Visit Diagnoses Not on filedocumented in this encounter Administered Medications Inactive Administered Medications - up to 3 most recent administrations Medication Order MAR Action Action Date Dose Rate Site ceFAZolin 2000 mg IVPB in 100 mL NS (MBP) 2,000 mg, Intravenous, Administer over 30 Minutes, Once, On Sat01/01/24 at 1107, For 1 dose, Administer within 1 hour of surgical incision. Redose 4 hours from pre-op dose if procedure ongoing or >1.5 L blood loss. Caution: Look alike/sound alike drug alert, Indications: Surgical ProphylaxisIndications:Surgical Prophylaxis New Bag 01/01/2024 1:47 PM EST 2 g dexAMETHasone (DECADRON) injection Intravenous, As Needed, Starting on Sat01/01/24 at 1347 Given 01/01/2024 1:47 PM EST 10 mg fentaNYL citrate (PF) (SUBLIMAZE) injection Intravenous, As Needed, Starting on Sat01/01/24 at 1437 Given 01/01/2024 2:37 PM EST 100 mcg labetalol (NORMODYNE,TRANDATE) injection Intravenous, As Needed, Starting on Sat01/01/24 at 1439 Given 01/01/2024 2:39 PM EST 5 mg lidocaine PF 1% (XYLOCAINE) injection Intravenous, As Needed, Starting on Sat01/01/24 at 1342 Given 01/01/2024 1:42 PM EST 50 mg ondansetron (ZOFRAN) injection Intravenous, As Needed, Starting on Sat01/01/24 at 1456 Given 01/01/2024 2:56 PM EST 4 mg Propofol (DIPRIVAN) injection Intravenous, As Needed, Starting on Sat01/01/24 at 1342 Given 01/01/2024 1:42 PM EST 120 mg rocuronium (ZEMURON) injection Intravenous, As Needed, Starting on Sat01/01/24 at 1342 Given 01/01/2024 1:42 PM EST 50 mg sodium chloride 0.9 % infusion Intravenous, Continuous PRN, Starting on Sat01/01/24 at 1332 New Bag 01/01/2024 2:41 PM EST New Bag 01/01/2024 1:32 PM EST sugammadex (BRIDION) injection Intravenous, As Needed, Starting on Sat01/01/24 at 1456 Given 01/01/2024 2:56 PM EST 200 mg documented in this encounter Care Teams Experimental 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
--- OUTSIDE RECORDS SUMMARY | 2024-09-29 14:37 | XMS_ITS | Encounter Summary ---
[facility] Address [address] [place] [address] Care Team Providers Care Bottler Name Role Phone Robinson Manley MD Primary Care Provider +1- [phone] Reason for Visit * Reason Comments Follow-up Hypertension Encounter Details Date Type Department Care Team (Late st Contact Info) Description 12/17/2023 8:30 AM EST Office Visit [facility] [address] [place] [phone] Naif Martinez, [employer]AND[employer] [address] [place] [address] Preoperative clearance (Primary Dx); Longstanding persistent atrial fibrillation Social History Tobacco Use Types Packs/Day Years Used Date Smoking Tobacco: Former Cigarettes Q uit: 1974 Passive Smoke Exposure: Past Smokeless Tobacco: Never Tobacco Cessation:Counseling Given: Yes Alcohol Use Standard Drinks/Week Comments Yes 0 [...] Sign Reading Time Taken Comments Blood Pressure 138/82 12/17/2023 8:32 AM EST Pulse 67 12/17/2023 8:32 AM EST Temperature - - Respiratory Rate - - Oxygen Saturation 98% 12/17/2023 8:32 AM EST Inhaled Oxygen Concentration - - Weight 96.6 kg (213 lb) 12/17/2023 8:32 AM EST Height 185.4 cm (6' 1 ) 12/17/2023 8:32 AM EST Body Mass Index 28.1 12/17/2023 8:32 AM EST documented in this encounter Progress Notes * Naif Martinze APRN - 12/17/2023 9:29 AM ESTAssociated Problem(s): Atrial fibrillation Chronic atrial fibrillation. EKG obtained today shows [...] at this time due to upcoming surgery. * Naif Martinez APRN - 12/17/2023 9:23 AM ESTAssociated Problem(s): Preoperative clearance EKG obtained today shows chronic atrial fibrillation [...] a stroke while Xarelto is on hold. * Naif Martinez APRN - 12/17/2023 8:30 AM ESTAddended by: NAIF MARTINEZ on: 12/17/2023 09:36 AM Modules accepted: Level of Service * Naif Martinez APRN - 12/17/2023 8:30 AM ESTAssociated Order(s): ECG 12 Lead Post-Procedure Diagnose(s): Preoperative clearance; Longstanding persistent atrial fibrillation Images from the original note were not included. [facility] Provider Note Date: 12/17/2023 Name: Santo Terrell : 1945 PCP: Robinson Manley MD Chief Complaint Patient presents with Follow-up Hypertension Subjective History of Present Illness Santo Terrell is a 78 y.o. male who presents today for cardiac clearance prior to back surgery. Patient has a history of chronic atrial fibrillation, nonobstructive CAD, hypertension and moderate mitral regurgitation. He completed an echocardiogram on 12/11/2023 that revealed an LVEF of 59%, moderate mitral valve regurgitation and normal RVSP. EKG today showed atrial fibrillation with a rate of 99 bpm. He recently completed high-dose prednisone pack for an acute gout flareup, which most likely contributes to his elevated heart rate. He denies any current symptoms. He denies chest pain, palpitations, dizziness, weakness, lower extremity edema or syncope. Overall, patient is doing well today. Cardiac History 1. Chronic A-fib, not on beta-lorna due to hypotension 2. Non-obstructive CAD 3. Hypertension 4. MR-mild to moderate 5. Hyperlipidemia Echocardiogram 12/10/2023-LVEF 59%. Moderate mitral valve regurgitation. Normal RVSP. LHC 11/17/18- Non-critical coronary stenosis. (25-50% distal LAD stenosis) Reports Denies Chest Pain [] [x] Shortness of Air [] [x] Palpitations [] [x] Edema [] [x] Dizziness [] [x] Syncope [] [x] Allergies Allergen Reactions Triple Antibiotic W/Hydrocortisone [Ramzexy-Gtfyjmjs-Jenkckpdj-Hc] Rash Codeine Other (See Comments) Knots on my head Current Outpatient Medications: allopurinol (ZYLOPRIM) 100 MG tablet, Take 1 tablet by mouth Daily., Disp: , Rfl: Livalo 4 MG tablet, Take 1 tablet by mouth Every Night., Disp: 90 tablet, Rfl: 1 omeprazole (priLOSEC) 20 MG capsule, Take 1 capsule by mouth Daily., Disp: , Rfl: probenecid (BENEMID) 500 MG tablet, Take 1 tablet by mouth 2 (Two) Times a Day., Disp: , Rfl: TART PELLETIER PO, Take by mouth., Disp: , Rfl: Xarelto 20 MG tablet, Take 1 tablet by mouth Daily., Disp: 90 tablet, Rfl: 1 Past Medical History: Diagnosis Date Allergies PHOLCODINE TRIPLE ANTIBIOTIC Chronic atrial fibrillation Chronic atrial fibrillation, unspecified CKD (chronic kidney disease), stage III GERD without esophagitis Hypercholesterolemia Hypertension Mitral regurgitation 07/04/2022 MODERATE Nonrheumatic mitral (valve) insufficiency Paroxysmal atrial fibrillation SOB (shortness of breath) Past Surgical History: Procedure Laterality Date APPENDECTOMY BACK SURGERY CHOLECYSTECTOMY SHOULDER SURGERY Left Family History Problem Relation Age of Onset [...] Sexual activity: Defer Objective Vital Signs: BP 138/82 Pulse 67 Ht 185.4 cm (73 ) Wt 96.6 kg (213 lb) SpO2 98% BMI 28.10 kg/m?? Estimated body mass index is 28.1 kg/m?? as calculated from the following: Height as of this encounter: 185.4 cm (73 ). Weight as of this encounter: 96.6 kg (213 lb). Physical Exam Vitals reviewed. Constitutional: Appearance: Normal appearance. HENT: Head: Normocephalic. Cardiovascular: Rate and Rhythm: Normal rate. Rhythm irregular. Heart sounds: Normal heart sounds. Pulmonary: Effort: [...] and Affect: Mood normal. Behavior: Behavior normal. ECG 12 Lead Date/Time: 12/17/2023 9:36 AM Performed by: Naif Martinez APRN Authorized by: Naif Martinez APRN Comparison: compared with previous ECG from 12/11/2023 Similar to previous ECG Rhythm: atrial fibrillation Rate: normal BPM: 99 Clinical impression: abnormal EKG Assessment and Plan Diagnoses and all orders for this visit: 1. Preoperative clearance (Primary) Assessment & Plan: EKG obtained today shows chronic atrial fibrillation [...] a stroke while Xarelto is on hold. 2. Longstanding persistent atrial fibrillation Assessment & Plan: Chronic atrial fibrillation. EKG obtained today shows [...] at this time due to upcoming surgery. Recommendations: ER if symptoms increase and Report if any new/changing symptoms immediately Follow Up Return in about 6 months (around 06/16/2024) for Afib. Patient was given instructions and counseling regarding his condition or for health maintenance advice. Please see specific information pulled into the AVS if appropriate. documented in this encounter Plan of Treatment Upcoming Encounters Date Type Department Care Team (Late st Contact Info) Description 12/15/2024 8:30 AM EST Office Visit [facility] [address] [place] [phone] Naif Martinez APRN [address] [place] [address] 02/04/2025 9:00 AM EDT Office Visit [facility] [address] [facility] [address] [place] [address] Britany Braxton MD [address] [facility] [address] [place] [address] documented as of this encounter Procedures Procedure Name Priority Date/Time Associated Diagnosis Comments ECG 12-LEAD Routine 12/17/2023 Preoperative clearance Longstanding persistent atrial fibrillation documented in this encounter Results * (ABNORMAL) ECG 12-LEAD (12/17/2023) Narrative 12/17/2023 Naif Martinez APRN ? 12/17/2023 ??9:36 AM ECG 12 Lead Date/Time: 12/17/2023 9:36 AM Performed by: Naif Martinez APRN Authorized by: Naif Martinez APRN ??Comparison: compared with previous ECG from 12/11/2023 Similar to previous ECG Rhythm: atrial fibrillation Rate: normal BPM: 99 Clinical impression: abnormal EKG Procedure Note Naif Martinez APRN - 12/17/2023 8:30 AM EST Images from the original note were not included. [facility] Provider Note Date: 12/17/2023 Name: Santo Terrell : 1945 PCP: Robinson Manley MD Chief Complaint Patient presents with Follow-up Hypertension Subjective History of Present Illness Santo Terrell is a 78 y.o. male who presents today for cardiac clearanceprior to back surgery. Patient has a history of chronic atrialfibrillation, nonobstructive CAD, hypertension and moderate mitralregurgitation. He completed an echocardiogram on 12/11/2023 that revealedan LVEF of 59%, moderate mitral valve regurgitation and normal RVSP. EKGtoday showed atrial fibrillation with a rate of 99 bpm. He recentlycompleted high-dose prednisone pack for an acute gout flareup, which mostlikely contributes to his elevated heart rate. He denies any currentsymptoms. He denies chest pain, palpitations, dizziness, weakness, lowerextremity edema or syncope. Overall, patient is doing well today. Cardiac History 1. Chronic A-fib, not on beta-lorna due to hypotension 2. Non-obstructive CAD 3. Hypertension 4. MR-mild to moderate 5. Hyperlipidemia Echocardiogram 12/10/2023-LVEF 59%. Moderate mitral valve regurgitation.Normal RVSP. [facility] 11/17/18- Non-critical coronary stenosis. (25-50% distal LAD stenosis) Reports Denies Chest Pain [] [x] Shortness of Air [] [x] Palpitations [] [x] Edema [] [x] Dizziness [] [x] Syncope [] [x] Allergies Allergen Reactions Triple Antibiotic W/Hydrocortisone [Cokyxxn-Vrhviwqh-Qdlprzlbf-Hc] Rash Codeine Other (See Comments) Knots on my head Current Outpatient Medications: allopurinol (ZYLOPRIM) 100 MG tablet, Take 1 tablet by mouth Daily.,Disp: , Rfl: Livalo 4 MG tablet, Take 1 tablet by mouth Every Night., Disp: 90tablet, Rfl: 1 omeprazole (priLOSEC) 20 MG capsule, Take 1 capsule by mouth Daily.,Disp: , Rfl: probenecid (BENEMID) 500 MG tablet, Take 1 tablet by mouth 2 (Two) Timesa Day., Disp: , Rfl: TART PELLETIER PO, Take by mouth., Disp: , Rfl: Xarelto 20 MG tablet, Take 1 tablet by mouth Daily., Disp: 90 tablet,Rfl: 1 Past Medical History: Diagnosis Date Allergies PHOLCODINE TRIPLE ANTIBIOTIC Chronic atrial fibrillation Chronic atrial fibrillation, unspecified CKD (chronic kidney disease), stage III GERD without esophagitis Hypercholesterolemia Hypertension Mitral regurgitation 07/04/2022 MODERATE Nonrheumatic mitral (valve) insufficiency Paroxysmal atrial fibrillation SOB (shortness of breath) Past Surgical History: Procedure Laterality Date APPENDECTOMY BACK SURGERY CHOLECYSTECTOMY SHOULDER SURGERY Left Family History Problem Relation Age of Onset [...] Sexual activity: Defer Objective Vital Signs: BP 138/82 Pulse 67 Ht 185.4 cm (73 ) Wt 96.6 kg (213 lb) ZdA480% BMI 28.10 kg/m?? Estimated body mass index is 28.1 kg/m?? as calculated from thefollowing: Height as of this encounter: 185.4 cm (73 ). Weight as of this encounter: 96.6 kg (213 lb). Physical Exam Vitals reviewed. Constitutional: Appearance: Normal appearance. HENT: Head: Normocephalic. Cardiovascular: Rate and Rhythm: Normal rate. Rhythm irregular. Heart sounds: Normal heart sounds. Pulmonary: Effort: [...] and Affect: Mood normal. Behavior: Behavior normal. ECG 12 Lead Date/Time: 12/17/2023 9:36 AM Performed by: Naif Martinez APRN Authorized by: Naif Martinez APRN Comparison: compared withprevious ECG from 12/11/2023 Similar to previous ECG Rhythm: atrial fibrillation Rate: normal BPM: 99 Clinical impression: abnormal EKG Assessment and Plan Diagnoses and all orders for this visit: 1. Preoperative clearance (Primary) Assessment & Plan: EKG obtained today shows chronic atrial fibrillation with a rate of 99bpm.Patient has previously been intolerant to beta-blockers due to hypotension Echocardiogram from 12/10/23 showed an EF of 59%. Moderate MR and normalRVSP. LHC from 2019 showed non-critical coronary stenosis (25-50% LAD stenosis). He is currently symptomatic, he denies chest pain, SOB, palpitations,dizziness or syncope. I discussed patient with Dr Wyatt, he may proceed with surgery withoutfurther testing. We discussed the risks and benefits of holding Xareltoprior to surgery. He understands that his is at risk for a stroke whileXarelto is on hold. 2. Longstanding persistent atrial fibrillation Assessment & Plan: Chronic atrial fibrillation. EKG obtained today shows chronic atrialfibrillation with a rate of 99bpm. He just completed a high-doseprednisone pack for gout flare up. This could be contributing to hiselevated heart rate. He is currently asymptomatic. Patient has previouslybeen intolerant to beta-blockers due to hypotension . I discussed adding a low-dose beta lorna with Dr Wyatt and did notrecommend starting a beta lorna at this time due to upcoming surgery. Recommendations: ER if symptoms increase and Report if any new/changingsymptoms immediately Follow Up Return in about 6 months (around 06/16/2024) for Afib. Patient was given instructions and counseling regarding his condition orfor health maintenance advice. Please see specific information pulled intothe AVS if appropriate. us Naif Martinez APRN ECG ORDERABLES Final Re sult documented in this encounter Visit Diagnoses Diagnosis Preoperative clearance- Primary Unspecified pre-operative examination Longstanding persistent atrial fibrillation documented in this encounter Care Teams Bottler Relationship Specialty Start Date End Date Robinson Manley MD [address] [place] [address] PCP - General Family Medicine 07/09/23 documented as of this encounter
--- OUTSIDE RECORDS SUMMARY | 2024-09-29 14:37 | XMS_ITS | Encounter Summary ---
Author Organization [facility] Address [address] [place] [address] Care Team Providers Care Senior Analyst Name Role Phone Robinson Manley MD Primary Care Provider [phone]- [phone] Encounter Details Date Type Department Care Team (Latest Contact Info) Description 12/23/2023 10:30 AM EST Pre-Admission Testing [facility] PREADMISS[facility] T [address] [place] [address] Spinal stenosis of lumbar region, unspecified whether neurogenic claudication present; Body mass index (BMI) 28.0-28.9, adult Social [...] Feels Unsafe at Home or Work/School no 12/23/2023 Feels Threatened by Someone no 12/12 Does Anyone Try to Keep You From Having Contact with Others or Doing Things Outside Your Home? no 12/23/2023 Physical Signs of Abuse Present no 12/23/2023 Housing Stability Answer Date Recorded Current Living [...] or training? Not on file Preferred Language Libyan 12/23/2023 Sex and Gender Information Value Date Recorded Sex Assigned at Not on file Legal Sex Male 1:15 PM EDT Gender Identity Not on file Sexual Orientation Not on file documented as of this encounter Last Filed Vital Signs Vital Sign Reading Time Taken Comments Blood Pressure - - Pulse - - Temperature - - Respiratory Rate - - Oxygen Saturation - - Inhaled Oxygen Concentration - - Weight 99.8 kg (220 lb 0.3 oz) 12/23/2023 10:12 AM EST Height 185.4 cm (6' 1 ) 12/23/2023 10:12 AM EST Body Mass Index 29.03 12/23/2023 10:12 AM EST documented in this encounter OR Notes * KIRSTIE - Eleonora Mcleod RN - 12/23/2023 10:30 AM EST Patient viewed general PAT education video as instructed in their preoperative information receivedfrom their surgeon. Patient stated the general PAT education video was viewed in its entirety and survey completed. Copies of PAT general education handouts (Incentive Spirometry, Meds to Beds Program, Patient Belongings, Pre-op skin preparation instructions, Blood Glucose testing, Visitor policy, Surgery FAQ, Code H) distributed to patient if not printed. Education related to the PAT pass and skin preparation for surgery (if applicable) completed in PAT as a reinforcement to PAT education video. Patient instructed to return PAT pass provided today as well as completed skin preparation sheet ( if applicable) on the day of procedure. Additionally if patient had not viewed video yet but intended to view it at home or in our waiting area, then referred them to the handout with QR code/link provided during PAT visit. Instructed patient to complete survey after viewing the video in its entirety. Encouraged patient/family to read PAT general education handouts thoroughly and notify PAT staff with any questions or concerns. Patientverbalized understanding of all information and priority content. An arrival time for procedure was not provided during PAT visit. If patient had any questions or concerns about their arrival time, they were instructed to contact their surgeon/physician. Additionally, if the patient referred to an arrival time that was acquired from their my chart account, patient was encouraged to verify that time with their surgeon/physician. Arrival times are NOT provided inPre Admission Testing Department. Patient denies any current skin issues. Patient to apply Chlorhexadine wipes to surgical area (as instructed) the night before procedure and the AM of procedure. Wipes provided. Bactroban (if prescribed) and Chlorhexidine Prescription prescribed by physician before PAT visit. Verified with patient that medication(s) were picked up from their pharmacy. Written instructions given to patient during PAT visit. Patient/family also instructed to complete skin prep checklist and return the checklist on the day of surgery to preoperative staff. Patient/family verbalized understanding. Patient instructed to drink 20 ounces of Gatorade or Gatorlyte (if diabetic) and it needs to be completed 1 hour (for Main OR patients) or 2 hours (scheduled section & [facility] patients) before given arrival time for procedure (NO RED Gatorade and NO Gatorade Zero). Patient verbalized understanding. Verified patient previously completed cardiology visit for cardiac risk assessment in preparation for upcoming procedure, completion of 12-lead ECG within six months, and risk assessment letter reviewed. No further interventions required. EKG AND CARDIAC RISK IN EPIC FROM Soraida MARTINEZ APRN ON 12/17/23 PATIENT STATES THAT HE WAS INSTRUCTED BY DR GUZMAN TO HOLD XARELTO 3 DAYS PRIOR TO SURGERY. documented in this encounter Plan of Treatment Upcoming Encounters Date Type Department Care Team (Late st Contact Info) Description 12/15/2024 8:30 AM EST Office Visit [facility] [address] [place] [phone] Hannah Martinez APRN [address] [place] [address] 02/04/2025 9:00 AM EDT Office Visit [facility] [address] [facility] [address] [place] [address] Britany Braxton MD [address] [facility] [address] [place] [address] documented as of this encounter Procedures Procedure Name Priority Date/Time Associated Diagnosis Comments PROTIME-INR Routine 12/23/2023 10:03 AM EST HEMOGLOBIN A1C Add-On 12/23/2023 10:03 AM EST CBC (NO DIFF) Routine 12/23/2023 10:01 AM EST Spinal stenosis of lumbar region, unspecified whether neurogenic claudication present Body mass index (BMI) 28.0-28.9, adult MRSA SCREEN Routine 12/23/2023 10:01 AM EST Spinal stenosis of lumbar region, unspecified whether neurogenic claudication present BASIC METABOLIC PANEL Routine 12/23/2023 10:01 AM EST Spinal stenosis of lumbar region, unspecified whether neurogenic claudication present documented in this encounter Results * (ABNORMAL) Protime-INR (12/23/2023 10:03 AM EST) Protime 22.3(H) 12.2 - 14.5 Seconds 12/23/2023 11:24 AM EST [facility] INR 1.94(H) 0.89 - 1.12 12/23/2023 11:24 AM EST [facility] Blood Venipuncture / Unknown 12/23/2023 10:03 AM EST 12/23/2023 10:52 AM EST us Hank Guzman MD LAB BLOOD ORDERABLES Final R esult [facility]
[address] [place] [address], * (ABNORMAL) Hemoglobin A1c (12/23/2023 10:03 AM EST) Hemoglobin A1C 5.80(H) 4.80 - 5.60 % 12/23/2023 11:12 AM EST [facility] Blood Venipuncture / Unknown 12/23/2023 10:03 AM EST 12/23/2023 10:52 AM EST [facility] - 12/23/2023 11:12 AM EST Hemoglobin A1C Ranges: Increased Risk for Diabetes ??5.7% to 6.4% Diabetes ? >= 6.5% Diabetic Goal ?< 7.0% Hank Guzman MD LAB BLOOD ORDERABLES Final R esult Performing Organization Address City/[facility]/ZIP Co de Phone Number [facility]
[address] [place] [address], [place] [phone] * MRSA Screen Culture (Outpatient) - Swab, Nares (12/23/2023 10:01 AM EST) Pathologist [facility] MRSA Screen Cx No Methicillin Resistant Staphylococcus aureus isolated MAYA 12/24/2023 11:36 AM EST [facility] Swab Structure of anterior naris / Unknown Collection / Unknown 12/23/2023 10:01 AM EST 12/23/2023 11:04 AM EST [facility] - 12/24/2023 11:36 AM EST The negative predictive value of this diagnostic test is high and should only be used to consider de-escalating anti-MRSA therapy. A positive result may indicate colonization with MRSA and must be correlated clinically. Kenna Manley PA-C MICROBIOLOGY - GENERAL KRISTYN MURRY Final Result Performing Organization Address [facility]/ZIP Co de Phone Number [facility]
[address] [place] [address], [place] [phone] * (ABNORMAL) Basic Metabolic Panel (12/23/2023 10:01 AM EST) Glucose 101(H) 65 - 99 mg/dL 12/23/2023 11:19 AM EST [facility] BUN 22 8 - 23 mg/dL 12/23/2023 11:19 AM [facility] Creatinine 1.45(H) 0.76 - 1.27 mg/dL 12/23/2023 11:19 AM [facility] Sodium 136 136 - 145 mmol/L 12/23/2023 11:19 AM [facility] Potassium 4.5 3.5 - 5.2 mmol/L 12/23/2023 11:19 AM [facility] Comment:Slight hemolysis det ected by analyzer. Result may be falsely elevated. Chloride 103 98 - 107 mmol/L 12/23/2023 11:19 AM [facility] CO2 21.0(L) 22.0 - 29.0 mmol/L 12/23/2023 11:19 AM [facility] Calcium 9.5 8.6 - 10.5 mg/dL 12/23/2023 11:19 AM [facility] BUN/Creatinine Ratio 15.2 7.0 - 25.0 12/23/2023 11:19 AM [facility] Anion Gap 12.0 5.0 - 15.0 mmol/L 12/23/2023 11:19 AM [facility] eGFR 49.6(L) >60.0 mL/min/1.7 3 12/23/2023 11:19 AM [facility] Blood Venipuncture / Unknown 12/23/2023 10:01 AM EST 12/23/2023 10:52 AM EST [facility] - 12/23/2023 11:19 AM EST GFR Normal >60 Chronic Kidney Disease <60 Kidney Failure <15 The GFR formula is only valid for adults with stable renal function between ages 18 and 70. Kenna Manley PA-C LAB BLOOD ORDERABLES Final Result [facility]
[address] [place] [address], * (ABNORMAL) CBC (No Diff) (12/23/2023 10:01 AM EST) WBC 11.03(H) 3.40 - 10.80 10*3/mm3 12/23/2023 12:31 PM EST [facility] RBC 5.84(H) 4.14 - 5.80 10*6/mm3 12/23/2023 12:31 PM [facility] Hemoglobin 17.1 13.0 - 17.7 g/dL 12/23/2023 12:31 PM [facility] Hematocrit 52.2(H) 37.5 - 51.0 % 12/23/2023 12:31 PM [facility] MCV 89.4 79.0 - 97.0 fL 12/23/2023 12:31 PM [facility] MCH 29.3 26.6 - 33.0 pg 12/23/2023 12:31 PM [facility] MCHC 32.8 31.5 - 35.7 g/dL 12/23/2023 12:31 PM [facility] RDW 14.7 12.3 - 15.4 % 12/23/2023 12:31 PM [facility] RDW-SD 48.0 37.0 - 54.0 fl 12/23/2023 12:31 PM [facility] MPV 11.1 6.0 - 12.0 fL 12/23/2023 12:31 PM [facility] Platelets 232 140 - 450 10*3/mm3 12/23/2023 12:31 PM [facility] Blood Venipuncture / Unknown 12/23/2023 10:01 AM EST 12/23/2023 10:52 AM EST Kenna Manley PA-C LAB BLOOD ORDERABLES Final Result [facility]
[address] [place] [address], documented in this encounter Visit Diagnoses Diagnosis Spinal stenosis of lumbar region, unspecified whether neurogenic claudication present Body mass index (BMI) 28.0-28.9, adult documented in this encounter Care Teams Senior Analyst Relationship Specialty Start Date End Date Robinson Manley MD [address] [place] [address] PCP - General Family Medicine 07/09/23 documented as of this encounter
--- OUTSIDE RECORDS SUMMARY | 2024-09-29 14:37 | XMS_ITS | Encounter Summary ---
Author Organization [facility] ystem Address [address] [place] [address] Care Team Providers Care Purchasing Contracting Clerk Name Role Phone Robinson Manley MD Primary Care Provider [phone]- [phone] Reason for Visit * Auth/Cert (Routine) Specialty Diagnoses / Procedures Referred By Contac t Referred To Contact Diagnoses Spinal stenosis of lumbar region, unspecified whether neurogenic claudication present Spinal stenosis of lumbar region, unspecified whether neurogenic claudication present [M48.061] Procedures CT GILMORE FACETECTOMY & FORAMOTOMY 1 VRT SGM LUMBAR LUMBAR LAMINECTOMY DISCECTOMY DECOMPRESSIO, N POSTERIOR 1-2 LEVELS, L3-4 Referral ID Status Reason Start Date Expiration Date Visits Re quested Visits Authorized [id number] 1 1 Encounter Details Date Type Department Care Team (Late st Contact Info) Description 01/01/2024 10:43 AM [facility] - 01/07/2024 4:50 PM [facility] Hospital Encounter [address] [place] [address] Hank Hitchcock MD [address] [address] Spinal stenosis of lumbar region with neurogenic claudication (Primary Dx) Discharge Disposition: Nursing Home Facility (DC - External) Social History Tobacco Use Types Packs/Day Years Used Date Smoking Tobacco: Former Cigarettes Q uit: 1974 Passive Smoke Exposure: Past Smokeless Tobacco: Never Alcohol Use Standard Drinks/Week Comments Yes 0 (1 standard drink = 0.6 oz pur e alcohol) BEER PER [facility] Utilities Answer Date Recorded In the past 12 months has 1bib, oil, or water [employer] threatened to shut off services in your [...] or training? Not on file Preferred Language Cook Islander 01/03/2024 Sex and Gender Information Value Date Recorded Sex Assigned at Not on file Legal Sex Male 1:15 PM EDT Gender Identity Not on file Sexual Orientation Not on file documented as of this encounter Last Filed Vital Signs Vital Sign Reading Time Taken Comments Blood Pressure 128/83 01/07/2024 11:47 AM EST Pulse 91 01/07/2024 11:47 AM EST Temperature 36.6 ??C (97.8 ??F) 01/07/2024 11:[address] Respiratory Rate 16 01/07/2024 11:47 AM EST Oxygen Saturation 97% 01/07/2024 11:47 AM EST Inhaled Oxygen Concentration - - Weight - - Height - - Body Mass Index - - documented in this encounter Discharge Summaries * Kenna Manley PA-C - 01/07/2024 2:06 PM EST Images from the original note were not included. [facility] Date of Admission: [...] [address] [place] [address] Kenna Manley PA-C Follow up in 2 week(s). Specialty: Neurosurgery Contact information: [address] [facility] [address] Contact information for after-discharge care Destination [facility] . Service: Nursing Home Contact information: [address] [facility] [id number] Kenna Manley PA-C 01/07/24 14:06 EST Cosigned by Hank Hitchcock MD at 01/07/2024 2:52 PM EST Associated attestation - Hank Hitchcock MD - 01/07/2024 2:52 PM EST I have reviewed this documentation and agree. * Stacey Kenney RN - 01/06/2024 11:46 AM EST Images from the original note were not included. 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 Marital Status Single Admission Date 01/01/24 Admission Type Elective Admitting Provider Hank iHtchcock MD Attending Provider Hank Hitchcock MD Department, Room/Bed [facility] 3H, S380/1 Discharge Date Discharge Disposition Discharge Destination Attending Provider: Hank Hitchcock MD Allergies: Triple Antibiotic W/hydrocortisone [Imhvick-rwzfswch-uuhojxcza-hc], Codeine Isolation: None Infection: None Code Status: No CPR Ht: 185.4 cm (73 ) Wt: 99.8 kg (220 lb 0.3 oz) Admission Cmt: None Principal Problem: None Active Insurance as of 01/01/2024 Primary Coverage Payor Plan Insurance Group Employer/Plan Group ANTHEM MEDICARE REPLACEMENT ANTHEM MEDICARE ADVANTAGE [id number] Payor Plan Address Payor Plan Phone Number Payor Plan Fax Number Effective Dates [address] 11/11/2018 - None Entered [facility] [id number] Subscriber Name Subscriber Date Member ID SANTO CLEVELAND 1945 [id number] 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 Spinal stenosis of lumbar region with neurogenic claudication M48.062 724.03 Patient Active Problem List Diagnosis Atrial fibrillation Hypercholesterolemia Coronary artery disease involving [place] heart without angina pectoris Essential hypertension Abnormal [...] LAMINECTOMY L3-4; Surgeon: Hank Hitchcock MD; Location: [facility]; Service: Neurosurgery; Laterality: N/A; SHOULDER ARTHROSCOPY Right [...] OT Occupational Therapist Mobility/ADL's Row Name 01/03/24 1447 Bed Mobility Bed Mobility rolling left;rolling right -CS Rolling Left [place] (Bed Mobility) minimum assist (75% patient effort);verbal cues -CS Rolling Right [place] (Bed Mobility) minimum assist (75% patient effort);verbal cues -CS Assistive Device (Bed Mobility) bed rails;draw sheet -CS Row Name 01/03/24 144 Transfers Transfers bed-chair transfer;sit-stand transfer;stand-sit transfer -CS Row Name 01/03/24 144 Bed-Chair Transfer Bed-Chair [place] (Transfers) dependent (less than 25% patient effort);2 person assist;verbal cues -CS Assistive Device (Bed-Chair Transfers) lift device -CS Row Name 01/03/24 1447 Sit-Stand Transfer Sit-Stand [place] (Transfers) minimum assist (75% patient effort);2 person assist;verbal cues -CS Assistive Device (Sit-Stand Transfers) walker, front-wheeled - Row Name 01/03/24 1447 Stand-Sit Transfer Stand-Sit [place] (Transfers) minimum assist (75% patient effort);2 person assist;verbal cues - Assistive Device (Stand-Sit Transfers) walker, front-wheeled - Row Name 01/03/24 1447 Functional Mobility Functional Mobility- Ind. Level moderate assist (50% patient effort);2 person assist required;verbal cues required - Functional Mobility- Device walker, front-wheeled - Functional Mobility-Distance (Feet) -- household distance - Functional Mobility- Comment Pt initially Min Ax2 however developed posterior lean and noted R kneebuckling w/ c/o fatigue, close chair follow - Row Name 01/03/24 144 Activities of Daily Living BADL Assessment/Intervention lower body dressing;feeding - Row Name 01/03/24 144 Lower Body Dressing Assessment/Training [place] Level (Lower Body Dressing) don;socks;dependent (less than 25% patient effort) - Position (Lower Body Dressing) supine - Row Name 01/03/24 144 Self-Feeding Assessment/Training [place] Level (Feeding) liquids to mouth;set up;finger foods [...] - Dynamic Standing Balance moderate assist;2-person assist - Position/Device Used, Standing Balance supported;walker, rolling - Balance Interventions sitting;standing;static;dynamic;dynamic reaching;occupation based/functional task;weight shifting activity -CS User Oliver (r) = Recorded By, (t) = Taken By, (c) = Cosigned By Initials Name Provider Type CS Rocio Wilson OT Occupational Therapist Goals/Plan Row Name 01/03/24 1449 Transfer Goal 1 (OT) Activity/Assistive Device (Transfer Goal 1, OT) yep-jl-bhxyb/xjtal-qg-voz;toilet -CS [place] Level/Cues Needed (Transfer Goal 1, OT) minimum assist (75% or more patient effort) -CS Time Frame (Transfer Goal 1, OT) mcfp goal (LTG);10 days -CS Progress/Outcome (Transfer Goal 1, OT) goal ongoing -CS Row Name 01/03/24 1449 Dressing Goal 1 (OT) Activity/Device (Dressing Goal 1, OT) lower body dressing -CS [place]/Cues Needed (Dressing Goal 1, OT) minimum assist (75% or more patient effort) -CS Time Frame (Dressing Goal 1, OT) mcfp goal (LTG);10 days -CS Strategies/Barriers (Dressing Goal 1, OT) don/doff socks w/ AAD -CS Progress/Outcome (Dressing Goal 1, OT) goal ongoing -CS Row Name 01/03/24 1449 Toileting Goal 1 (OT) Activity/Device (Toileting Goal 1, OT) adjust/manage clothing;perform perineal hygiene -CS [place] Level/Cues Needed (Toileting Goal 1, OT) moderate assist (50-74% patient effort) -CS Time Frame (Toileting Goal 1, OT) mcfp goal (LTG);10 days -CS Progress/Outcome (Toileting Goal 1, OT) goal ongoing -CS Row Name 01/03/24 1446 Therapy Assessment/Plan (OT) Planned Therapy Interventions (OT) activity tolerance training;adaptive equipment training;BADL retraining;functional balance retraining;occupation/activity based interventions;ROM/therapeutic exercis e;strengthening exercise;transfer/mobility retraining -CS User Oliver (r) = Recorded By, (t) = Taken By, (c) = Cosigned By Initials Name Provider Type Rocio Fuentes OT Occupational Therapist Clinical Impression Row Name [...] to IP rehab. -CS Row Name 01/03/24 145 Therapy Assessment/Plan (OT) Patient/Family Therapy Goal Statement (OT) Return to PLOF -CS Rehab Potential (OT) good, to achieve stated therapy goals -CS Criteria for Skilled Therapeutic Interventions Met (OT) yes;skilled treatment is necessary -CS Therapy Frequency (OT) daily -CS Row Name 01/03/24 145 Therapy Plan Review/Discharge Plan (OT) Anticipated Discharge Disposition (OT) inpatient rehabilitation facility - Row Name 01/03/24 145 Vital Signs Pre SpO2 (%) 95 -CS O2 Delivery Pre Treatment room air -CS Post SpO2 (%) 97 -CS O2 Delivery Post Treatment room air -CS Pre Patient Position Supine -CS Intra Patient Position Standing -CS Post Patient Position Sitting -CS Row Name 01/03/24 145 Positioning and Restraints Pre-Treatment Position in bed -CS Post Treatment Position chair -CS In Chair notified nsg;reclined;call light within reach;encouraged to call for assist;exit alarm on;RUE elevated;LUE elevated;legs elevated;with family/caregiver;waffle cushion;on mechanical lift sling -CS User Oliver (r) = Recorded By, (t) = Taken By, (c) = Cosigned By Initials Name Provider Type CS Rocio Wilson, OT Occupational Therapist Outcome Measures Row Name 01/03/241449 How much help from another is currently [...] Score (OT) 15 -CS Row Name 01/03/24 0965 How much help from another person do [...] Cosigned By Initials Name Provider Type Rocio Fuentes, OT Occupational Therapist ND Catalina Guadarrama, PT Physical Therapist Occupational Therapy Education Title: PT OT HEALTH AND PHYSICAL EDUCATION TEACHER Therapies (In Progress) Topic: Occupational Therapy (In Progress) Point: ADL training (In Progress) Description: Instruct learner(s) on proper safety adaptation and remediation techniques during self care or transfers. Instruct in proper use of assistive devices. Learning Progress Summary Patient Acceptance, E, NR by at 01/03/20241449 Family Acceptance, E, NR by at 01/03/20241449 Point: Home exercise program (Not Started) Description: Instruct learner(s) on appropriate technique for monitoring, assisting and/or progressing therapeutic exercises/activities. Learner Progress: Not documented in this visit. Point: Precautions (In Progress) Description: Instruct learner(s) on prescribed precautions during self-care and functional transfers. Learning Progress Summary Patient Acceptance, E, NR by CS at 01/03/2024 145 Family Acceptance, E, NR by CS at 01/03/20241449 Point: Body mechanics (In Progress) Description: Instruct learner(s) on proper positioning and spine alignment during self-care, functional mobilityactivities and/or exercises. Learning Progress Summary Patient Acceptance, E, NR by CS at 01/03/2024 145 Family Acceptance, E, NR by at 01/03/20241449 User Oliver Initials Effective Dates Name Provider Type Discipline 07/13/21 - Rocio Wilson OT Occupational Therapist [...] complexity Time Calculation- OT Row Name 01/03/24 5093 Time Calculation- OT OT Start Time 1315 -CS OT Received On 01/03/24 -CS OT Goal Re-Cert Due Date 01/13/24 -CS Timed Charges 73589 - OT Therapeutic Activity Minutes 18 -CS 13268 - OT Self Care/Mgmt Minutes 5 -CS [...] Description Service Date Service Provider Modifiers Qty 38344040566 HC OT THERAPEUTIC ACT EA 15 MIN 01/03/2024 Rocio Wilson OT GO 1 04664405315 HC OT SELF CARE/MGMT/TRAIN EA 15 MIN 01/03/2024 Rocio Wilson OT GO 1 87119277872 HC OT EVAL MOD COMPLEXITY 3 01/03/2024 Rocio Wilson OT GO 1 75569262869 HC OT THER SUPP EA 15 MIN 01/03/2024 Rocio Wilson OT GO 2 Rocio Wilson OT 01/03/2024 9793 documented in this encounter Discharge Instructions * Discharge Instructions* Lorna Phelan, RN - 01/07/2024 2:02 PM EST Patient [...] sent through Care Everywhere. * Spinal Stenosis Cqhe-yn-Akhv (Cook Islander) * Seizure Adult Tbov-sc-Qdvn ([place] Islander) * Gout Tjcp-ml-Cwyx ([place] Islander) * Understanding Your Risk for Falls (Cook Islander) * How to Use an Incentive Spirometer ([place] Islander) * How to Prevent Constipation After Surgery ([place] Islander) documented in this encounter Medications at Time of Discharge allopurinol (ZYLOPRIM) 100 MG tablet Take 1 tablet by mouth Daily. 05/29/2023 Livalo 4 MG tabletIndications :Hypercholesterol emia Take 1 tablet by mouth Every Night. 90 tablet 1 07/09/2023 naloxone (NARCAN) 4 MG/0.1ML nasal spray Call 911. Don't prime. [place] in 1 nostril for overdose. Repeat in [...] from the original note were not included. [facility] Medicine Services PROGRESS NOTE Patient Name: Santo Cleveland : 1945 Date of Admission: 01/01/2024 Primary [...] Unknown Brief Hospital Course to date: Santo Cleveland is a 78 y.o. male s/p L3-4 [...] and Transportation: PT recs rehab, bed at [facility] awaiting precert Expected Discharge Expected Discharge Date: 01/08/2024; Expected Discharge Time: DVT prophylaxis: Medical and mechanical DVT prophylaxis orders are present. AM-PAC 6 Clicks Score (PT): 18 (01/07/24 0816) CODE STATUS: Code Status and Medical Interventions: Ordered at: 01/01/24 0392 Medical Intervention Limits: NO artificial nutrition NO [...] Manley PA-C - 01/07/2024 9:04 AM EST [facility] NEUROSURGERY PROGRESS NOTE [...] BPA Driven Protocol, , Does not apply, FAM, Brown Rodriguez MD probenecid (BENEMID) tablet 250 [...] from the original note were not included. [facility] Medicine Services PROGRESS NOTE Patient Name: Santo Cleveland : 1945 Date of Admission: 01/01/2024 Primary [...] Unknown Brief Hospital Course to date: Santo Cleveland is a 78 y.o. male s/p L3-4 [...] AM-PAC 6 Clicks Score (PT): 18 (01/05/24 4789) CODE STATUS: Code Status and Medical Interventions: Ordered at: 01/01/24 4586 Medical Intervention Limits: NO artificial nutrition NO [...] twice daily and continue indefinitely. Outpatient follow-up [facility] neurology with Dr. Braxton) 3 to 4 months. Comment: The patient is apprised of the [place] statute on driving. 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 I discussed the patients findings and my recommendations with patient and family Malcom Contreras MD 01/06/24 12:05 EST * Kenna Manley PA-C - 01/06/2024 9:13 AM EST [facility] NEUROSURGERY PROGRESS NOTE [...] Intake/Output Summary (Last 24 hours) at 01/06/2024 09 Last data filed at 01/06/2024 0350 Gross [...] 40 mg, Intravenous, Q AM, Valdemar Curran, SERVOMECHANISM ASSEMBLER, 40 mg at 01/06/24 0529 polyethylene glycol [...] 40 mg, 40 mg, Oral, Once, Kenna Manley, ROSEMARY probenecid (BENEMID) tablet 250 mg, 250 mg, [...] from the original note were not included. [facility] Medicine Services PROGRESS NOTE Patient Name: Santo Cleveland : 1945 Date of Admission: 01/01/2024 Primary [...] Unknown Brief Hospital Course to date: Santo Cleveland is a 78 y.o. male s/p L3-4 [...] Status and Medical Interventions: Ordered at: 01/01/24 3966 Medical Intervention Limits: NO artificial nutrition NO intubation (DNI) Code Status (Patient has no pulse and is not breathing): No CPR (Do Not Attempt to Resuscitate) Medical Interventions (Patient has pulse or is breathing): Limited Support Brown Rodriguez MD 01/05/24 * Sophie Aponte PA-C - 01/05/2024 9:46 AM EST [facility] NEUROSURGERY PROGRESS NOTE [...] PRN, Sophie Aponte PA-C, 1,000 mg at01/04/24 1756 allopurinol (ZYLOPRIM) tablet 100 mg, 100 mg, [...] tablet, 1 tablet, Oral, Q6H PRN, Kenna Manley, ROSEMARY levETIRAcetam (KEPPRA) injection 250 mg, 250 mg, [...] 40 mg, Intravenous, Q AM, Valdemar Curran, SERVOMECHANISM ASSEMBLER, 40 mg at 01/05/24 0459 polyethylene glycol [...] from the original note were not included. [facility] Services PROGRESS NOTE Patient Name: Santo Cleveland : 1945 Date of Admission: 01/01/2024 Primary [...] No rashes Results Reviewed: LAB RESULTS: Lab 01/04/2440301/03/2442201/02/24 0731 WBC 9.20 14.22* 12.19* HEMOGLOBIN 14.3 14.1 14.5 HEMATOCRIT 43.7 44.7 45.7 PLATELETS 152 160 165 NEUTROS ABS -- -- 11.18* IMMATURE GRANS (ABS) -- -- 0.06* LYMPHS ABS -- -- 0.61* MONOS ABS -- -- 0.33 EOS ABS -- -- 0.00 MCV 88.6 88.7 87.9 Lab 01/04/2440301/03/243 01/02/24 0731 01/01/24 1539 SODIUM 138 142 [...] from the same date. Technique: Routine 3-D mgys-cl-lpimsr gradient echo imaging was obtained of the [...] MD 01/02/2024 3:28 PM EST Workstation ID: [id number] MRI Brain Without Contrast Result Date: 01/02/2024 MRI ANGIOGRAM HEAD WO CONTRAST, MRI BRAIN WO CONTRAST Date of Exam: 01/02/2024 2:00 PM EST Indication: Stroke, follow up. Comparison: Noncontrast head CT and head CTA from the same date. Technique: Routine 3-D eppb-ux-yvdqqc gradient echo imaging was obtained of the [...] MD 01/02/2024 3:28 PM EST Workstation ID: [id number] Results for orders placed in visit on [...] Unknown Brief Hospital Course to date: Santo Cleveland is a 78 y.o. male s/p L3-4 [...] Status and Medical Interventions: Ordered at: 01/01/24 2306 Medical Intervention Limits: NO artificial nutrition NO intubation (DNI) Code Status (Patient has no pulse and is not breathing): No CPR (Do Not Attempt to Resuscitate) Medical Interventions (Patient has pulse or is breathing): Limited Support Brown Rodriguez MD 01/04/24 * Sophie Aponte PA-C - 01/04/2024 11:50 AM EST [facility] NEUROSURGERY PROGRESS NOTE [...] 40 mg, 40 mg, Subcutaneous, Daily, Hank Hitchccok MD, 40 mgat 01/03/242042 HYDROcodone-acetaminophen (NORCO) 5-325 [...] 40 mg, Intravenous, Q AM, Valdemar Curran, SERVOMECHANISM ASSEMBLER, 40 mg at 01/04/24 043 polyethylene glycol (MIRALAX) packet 17 g, 17 [...] last 240 hours. Assessment and plan: Santo Cleveland is a 78 year old male who [...] 1:26 PM EST Neurology Note Patient: Santo Cleveland DATE OF : 1945 REFERRING PHYSICIAN: Hank [...] LAMINECTOMY L3-4; Surgeon: Hank Hitchcock MD; Location: [facility]; Service: Neurosurgery; Laterality: N/A; SHOULDER ARTHROSCOPY Right [...] Take 1 capsule by mouth Daily. Yes Hubert Roland MD probenecid (BENEMID) 500 MG tablet Take 0.5 tablets by mouth Daily. 1/2 PILL QD Yes Hubert Roland MD TARRanjan PELLETIER PO Take 1 tablet by mouth Daily. Yes Hubert Roland MD Xarelto 20 MG tablet Take 1 tablet by mouth Daily. Patient taking differently: Take 1 tablet by mouth Daily. WILL HOLD 3 DAYS PRIOR TO SURGERY PER DR HITCHCOCK 07/09/23 Carleen Dave APRN Allergies: Triple antibiotic w/hydrocortisone [xczdkin-kivxludc-zslkmewiz-hc] and Codeine Review of system Review of [...] from the same date. Technique: Routine 3-D paaw-bl-djggbp gradient echo imaging was obtained of the [...] MD 01/02/2024 3:28 PM EST Workstation ID: [id number] MRI Brain Without Contrast Result Date: 01/02/2024 MRI ANGIOGRAM HEAD WO CONTRAST, MRI BRAIN WO CONTRAST Date of Exam: 01/02/2024 2:00 PM EST Indication: Stroke, follow up. Comparison: Noncontrast head CT and head CTA from the same date. Technique: Routine 3-D txkg-je-estcwv gradient echo imaging was obtained of the [...] MD 01/02/2024 3:28 PM EST Workstation ID: [id number] CT Angiogram Head Result Date: 01/02/2024 CT [...] MD 01/02/2024 10:02 AM EST Workstation ID: [id number] CT Head Without Contrast Result Date: 01/02/2024 [...] posterior falx and tentorium, questionably new compared toyesterday's head CT, suspicious for very thin subdural hematomas. There is no significant mass effec t. No hydrocephalus. Electronically Signed: Orlin Palencia MD 01/02/2024 8:25 AM EST Workstation ID: [id number] EEG Result Date: 01/01/2024 Reason for referral: [...] seen This report is transcribed using the HowStuffWorksation system. CT Head Without Contrast Result Date: [...] MD 01/01/2024 5:25 PM EST Workstation ID: [id number] FL C Arm During Surgery Result Date: [...] Vee MD - 01/03/2024 11:07 AM EST [facility] Chief Complaint: Seizures [...] He is allergic to triple antibiotic w/hydrocortisone [xgfrhfq-opyxfamk-tasoeoddq-hc] andcodeine. FH: His family history includes Arthritis [...] social history were reviewed and updated in [facility] as appropriate. 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 Otherwise normal CT angiogram of the head as above. Electronically Signed: Ivan Jon MD 01/02/2024 10:02 AM EST Workstation ID: [id number] CT Head Without Contrast Result Date: 01/02/2024 Impression: Similar appearance of acute scattered subarachnoid hemorrhage in the right parietal sulci. New or increased trace intraventricular hemorrhage within the dependent portions of the occipital horns. Subtle hyperdense thickening the posterior falx and tentorium, questionably new compared toy's head CT, suspicious for very thin subdural hematomas. There is no significant mass effec t. No hydrocephalus. Electronically Signed: Orlin Palencia MD 01/02/2024 8:25 AM EST Workstation ID: [id number] EEG Result Date: 01/01/2024 Diffuse cerebral dysfunction of moderate degree, nonspecific No ongoing seizures are seen This report is transcribed using the Clinverse dictation system. CT Head Without Contrast Result [...] MD 01/01/2024 5:25 PM EST Workstation ID: [id number] I reviewed the patient's new laboratory and imaging results. I independently reviewed the patient's new images. Assessment & Plan A / P Active Hospital Problems: Active Hospital Problems Diagnosis POA ??? 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 Lumbar stenosis [M48.061] Yes ??? Seizure [R56.9] Yes Resolved Hospital Problems Diagnosis Date Resolved POA ??? UTNDE (acute kidney injury) [N17.9] 01/03/2024 Unknown #Spinal [...] Vee MD - 01/02/2024 3:40 PM EST [facility] Chief Complaint: Seizures [...] He is allergic to triple antibiotic w/hydrocortisone [kcrozgm-fxxmjmls-iybmrlezp-hc] andcodeine. FH: His family history includes Arthritis [...] social history were reviewed and updated in [facility] as appropriate. 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 Otherwise normal CT angiogram of the head as above. Electronically Signed: Ivan Jon MD 01/02/2024 10:02 AM EST Workstation ID: [id number] CT Head Without Contrast Result Date: 01/02/2024 [...] MD 01/02/2024 8:25 AM EST Workstation ID: [id number] EEG Result Date: 01/01/2024 Diffuse cerebral dysfunction of moderate degree, nonspecific No ongoing seizures are seen This report is transcribed using the Clinverse dictation system. CT Head Without Contrast Result [...] MD 01/01/2024 5:25 PM EST Workstation ID: [id number] I reviewed the patient's new laboratory and [...] 40 mg, Intravenous, Q AM, Valdemar Curran, SERVOMECHANISM ASSEMBLER, 40 mg at 01/02/24 0534 polyethylene glycol [...] PRN, Hank Hitchcock MD, 10 mL at 01/01/242039 sodium chloride 0.9 % flush 3 mL, [...] Vee MD - 01/01/2024 3:33 PM EST [facility] VISIT NOTE Chief Complaint: Seizures Subjective S MR. Cleveland is a 78 yo male with PMH [...] spent 5 minutes of time on this. MUKUL Carlin, AGACNP-, SERVOMECHANISM ASSEMBLER Electronically signed by Nancie Andrade APRN, 01/01/24, [...] He is allergic to triple antibiotic w/hydrocortisone [upwrspb-ducircax-krfaxbfuh-hc] andcodeine. FH: His family history includes Arthritis [...] social history were reviewed and updated in [facility] as appropriate. Objective O I/O 24 hrs [...] seen This report is transcribed using the [employer] dictation system. CT Head Without Contrast Result [...] MD 01/01/2024 5:25 PM EST Workstation ID: [id number] I reviewed the patient's new laboratory and [...] this encounter H&P Notes * Eduardo Buitrago, SERVOMECHANISM ASSEMBLER - 01/01/2024 10:20 AM EST Pre-Op H&P Santo Cleveland [id number] 1945 Chief complaint: Back Pain Subjective: Patient [...] Allergies: Allergies Allergen Reactions Triple Antibiotic W/Hydrocortisone [Fheiiwv-Dksxpwlg-Eqiahmary-Hc] Rash Codeine Other (See Comments) Knots on [...] included. Neurology Referring provider: Hank Hitchcock MD [address] [facility] [address] [place] [address] Reason for Consultation: Seizures Chief complaint: Confused [...] LAMINECTOMY L3-4; Surgeon: Hank Hitchcock MD; Location: [facility]; Service: Neurosurgery; Laterality: N/A; SHOULDER ARTHROSCOPY Right [...] use: Never and Allergies: Triple antibiotic w/hydrocortisone [phckghl-grxwleso-whyyhdasg-hc] and Codeine, Vital Signs Blood pressure 114/87, [...] extremities. 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 Sensory testing [...] hours) Procedure Component Value Units Date/Time Magnesium [[id number]] (Abnormal) Collected: 01/02/24730 Specimen: Blood Updated: 01/02/24852 Magnesium 2.5 mg/dL Basic Metabolic Panel [[id number]] (Abnormal) Collected: 01/02/24730 Specimen: Blood Updated: 01/02/24852 [...] function between ages 18 and 70. Phosphorus [[id number]] (Abnormal) Collected: 01/02/24730 Specimen: Blood Updated: 01/02/24852 Phosphorus 4.8 mg/dL CBC & Differential [[id number]] (Abnormal) Collected: 01/02/24730 Specimen: Blood Updated: 01/02/24812 Narrative: The following orders were created for panel order CBC & Differential. Procedure Abnormality Status --------- ------ CBC Auto Differential[[id number]] Abnormal Final result Please view results for these tests on the individual orders. CBC Auto Differential [[id number]] (Abnormal) Collected: 01/02/24730 Specimen: Blood Updated: 01/02/24812 [...] nRBC 0.0 /100 WBC POC Glucose Once [[id number]] (Normal) Collected: 01/02/24 0459 Specimen: Blood Updated: 01/02/24 0501 Glucose 129 mg/dL POC Glucose Once [[id number]] (Abnormal) Collected: 01/02/24 001 Specimen: Blood Updated: 01/02/24 0016 Glucose 177 mg/dL POC Glucose Once [[id number]] (Abnormal) Collected: 01/01/24 181 Specimen: Blood Updated: 01/01/24 181 Glucose 252 mg/dL Basic Metabolic Panel [[id number]] (Abnormal) Collected: 01/01/24 1539 Specimen: Blood from [...] ages 18 and 70. POC Glucose Once [[id number]] (Abnormal) Collected: 01/01/24 153 Specimen: Blood Updated: 01/01/24 1533 Glucose 167 mg/dL Rads: Imaging Results (Last 72 Hours) Procedure Component Value Units Date/Time CT Angiogram Head [[id number]] Collected: 01/02/24 0936 Updated: 01/02/24 1005 Narrative: CT ANGIOGRAM HEAD Date of Exam: [...] MD 01/02/2024 10:02 AM EST Workstation ID: [id number] CT Head Without Contrast [[id number]] Collected: 01/02/24816 Updated: 01/02/24827 Narrative: CT HEAD [...] MD 01/02/2024 8:25 AM EST Workstation ID: [id number] CT Head Without Contrast [[id number]] Collected: 01/01/241719 Updated: 01/01/241727 Narrative: CT HEAD [...] MD 01/01/2024 5:25 PM EST Workstation ID: [id number] C Arm During Surgery [[id number]] Resulted: 01/01/24 1451 Updated: 01/01/24 1451 Narrative: This procedure was auto-finalized with no [...] in this encounter Nursing Notes * Brandon Pimentel, PT - 01/07/2024 11:47 AM EST Goal [...] items within reach activity supervised * Ember Johnson, PT - 01/06/2024 2:56 PM EST Goal [...] at bedside, [place] No changes this shift. IS encouraged... Problem: Adult Inpatient Plan of Care Goal: Absence of Hospital-Acquired Illness or Injury Intervention: Identify and Manage Fall Risk Recent Flowsheet Documentation Taken 01/05/2024 1815 by Radha Rogers, TRUDI Safety Promotion/Fall Prevention: gait belt activity supervised safety round/check completed Taken 01/05/2024 1719 by Radha Rogers RN Safety Promotion/Fall Prevention: activity supervised safety round/check completed gait belt Taken 01/05/2024 1610 by Radha Rogers RN Safety Promotion/Fall Prevention: activity supervised safety round/check completed gait belt Taken 01/05/2024 1422 by Radha Rogers RN Safety Promotion/Fall Prevention: assistive device/personal [...] from skin contact Taken 01/05/2024 1422 by ParRadha claire RN Body Position: position changed independently Skin [...] PT -tolerated well, [place]. No changes this shift.. Problem: Adult Inpatient Plan of Care Goal: Absence of Hospital-Acquired Illness or Injury Intervention: Identify and Manage Fall Risk Recent Flowsheet Documentation Taken 01/04/2024 1730 by Radha Rogers RN Safety Promotion/Fall Prevention: activity supervised toileting scheduled safety round/check completed Taken 01/04/2024 1219 by Radha Rogers RN Safety Promotion/Fall Prevention: activity supervised safety round/check completed Problem: Adult Inpatient Plan of Care Goal: Absence of Hospital-Acquired Illness or Injury Intervention: Prevent Skin Injury Recent Flowsheet Documentation Taken 01/04/2024 1219 by Radha Rogers, RN Body Position: weight shifting Skin Protection: [...] bilateral sequential compression devices on * Dannielle Orellana PT - 01/04/2024 9:54 AM EST Goal [...] this shift. [place]. Problem: Adult Inpatient Plan of Care Goal: Absence of Hospital-Acquired Illness or Injury Intervention: Identify and Manage Fall Risk Recent Flowsheet Documentation Taken 01/03/20241833 by Radha Rogers, TRUDI Safety Promotion/Fall Prevention: activity supervised safety round/check completed Problem: Adult Inpatient Plan of Care Goal: Absence of Hospital-Acquired Illness or Injury Intervention: Prevent Skin Injury Recent Flowsheet Documentation Taken 01/03/20241833 by Radha Rogers, RN Body Position: weight shifting position changed independently Skin Protection: adhesive use limited tubing/devices free from skin contact incontinence pads utilized Taken 01/03/2024 1455 by Radha Rogers, RN Skin Protection: adhesive use limited tubing/devices free from skin contact incontinence pads utilized Problem: Adult Inpatient Plan of Care Goal: Absence of Hospital-Acquired Illness or Injury Intervention: Prevent and Manage VTE (Venous Thromboembolism) Risk Recent Flowsheet Documentation Taken 01/03/2024 183 by Radha Rogers, RN Activity Management: up in chair VTE Prevention/Management: bilateral sequential compression devices off patient refused intervention Taken 01/03/2024 1257 by Radha Rogers, RN VTE Prevention/Management: bilateral sequential compression devices [...] DECOMPRESSION POSTERIOR 1-2 LEVELS Progress Note Santo Cleveland 01/01/2024 Pre-op Diagnosis: Spinal stenosis of lumbar region, unspecified whether neurogenic claudication present [M48.061] Post-Op Diagnosis Codes: * Spinal stenosis of lumbar region, unspecified whether neurogenic claudication present [M48.061] Procedure/CPT?? Codes: Procedure(s): LUMBAR LAMINECTOMY L3-4 Surgeon(s): Hank Hitchcock MD Anesthesia: General Staff: Copper Plate Printer: Day Urena RN; Andreia Kolb RN Physician Nurses Superintendent: Kenna Manley PA-C Transmission Calibration Engineer: Simba Kidd RT Scrub Person: Aleena Mauricio Chute Worker: Sunday Adame; Gardenia Casillas Estimated Blood [...] Notes * Case Management/Social Work - Nidhi Bañuelos, RN - 01/07/2024 2:01 PM EST Case Management Discharge Note Final Note: Pt has been approved to transfer to [facility]. Family will transport. Reportcan be called to [phone]. They have access to [employer] for the dc summary. Pt is in agreement withplan Selected Continued Care - Admitted Since 01/01/2024 Destination Coordination complete. Service Provider Selected Services Address Phone Fax Patient Preferred [facility] [address] [phone] -- Internal Comment last updated by Stacey Kenney, RN 01/06/2024 2615 01/06: [facility] started insurance precert today. Durable [...] patient. Final Discharge Disposition Code: 03 - long term facility (SNF) * Therapy Treatment Note - Brandon Pimentel PT - 01/07/2024 11:47 AM EST Patient Name: Santo Cleveland : 1945 Today's Date: 01/07/2024 Admit Date: 01/01/2024 Visit Dx: ICD-10-CM ICD-9-CM 1. Spinal stenosis of lumbar region with neurogenic claudication M48.062 724.03 Patient Active Problem List Diagnosis Atrial fibrillation Hypercholesterolemia Coronary artery disease involving [place] heart without angina pectoris Essential hypertension Abnormal [...] LAMINECTOMY L3-4; Surgeon: Hank Hitchcock MD; Location: [facility]; Service: Neurosurgery; Laterality: N/A; SHOULDER ARTHROSCOPY Right TEETH EXTRACTION General Information [facility] Name 01/07/24 1415 Physical Therapy Time and Intention Document Type discharge treatment -MS Mode of Treatment physical therapy;individual therapy -[facility] Name 01/07/24 1415 General Information Patient Profile Reviewed yes -MS Existing Precautions/Restrictions fall;seizures -[facility] Name 01/07/24 141 Cognition Orientation Status (Cognition) oriented x 3 -[facility] Name 01/07/24 141 Safety Issues, Functional Mobility Impairments Affecting Function (Mobility) balance;strength;pain;endurance/activity tolerance -MS Comment, Safety Issues/Impairments (Mobility) alert, following commands -MS User Oliver (r) = Recorded By, (t) = Taken By, (c) = Cosigned By Initials Name Provider Type MS Brandon Pimentel, PT Physical Therapist Mobility [facility] Name 01/07/24 141 Bed Mobility Comment, (Bed Mobility) uic -[facility] 01/07/24 141 Sit-Stand Transfer Sit-Stand [place] (Transfers) verbal cues;standby assist [facility] Assistive Device (Sit-Stand Transfers) walker, front-wheeled -[facility] 01/07/24 141 Gait/Stairs (Locomotion) [place] Level (Gait) standby assist [facility] Assistive Device (Gait) walker, front-wheeled -MS Distance in Feet (Gait) 600 -MS Deviations/Abnormal Patterns (Gait) gait speed decreased;left sided deviations;antalgic;weight shifting decreased -MS Comment, (Gait/Stairs) Gt traiing focused on controling walker with upright posture. Demonstrated good control. nO lOB -MS User Oliver (r) = Recorded By, (t) = Taken By, (c) = Cosigned By Initials Name Provider Type MS Brandon Pimentel, PT Physical Therapist Obj/Interventions [facility] Name 01/07/24 141 Balance Dynamic Standing Balance 1-person assist;standby assist -MS Position/Device Used, Standing Balance supported;walker, rolling -MS User Oliver (r) = Recorded By, (t) = Taken By, (c) = Cosigned By Initials Name Provider Type MS Brandon Pimentel, PT Physical Therapist Goals/Plan No documentation. Clinical Impression [facility] Name 01/07/24 141 Pain Scale: FACES Pre/Post-Treatment Pain: FACES Scale, Pretreatment 2-->hurts little bit -MS Posttreatment Pain Rating 2-->hurts little bit -MS Pain Location - Side/Orientation Left -MS Pain Location - foot -MS Row Name 01/07/24 1417 Plan of Care Review Plan of Care Reviewed With patient -MS Progress improving -MS Outcome Evaluation L foot pain improving alowing for increase ambulation. -MS Row Name 01/07/24 141 Therapy Assessment/Plan (PT) Rehab Potential (PT) good, to achieve stated therapy goals -MS Criteria for Skilled Interventions Met (PT) yes;meets criteria;skilled treatment is necessary -MS Therapy Frequency (PT) daily -MS Row Name 01/07/24 141 Positioning and Restraints Pre-Treatment Position sitting in chair/recliner -MS Post Treatment Position chair -SC In Chair notified nsg;reclined;sitting;call light within reach;encouraged to call for assist -MS User Oliver (r) = Recorded By, (t) = Taken By, (c) = Cosigned By Initials Name Provider Type MS Brandon Pimentel PT Physical Therapist Outcome Measures Row Name 01/07/24 1418 01/07/24 0816 How much help from another person do you currently need... Turning from your back to your side while in flat bed without using bedrails? 4 -MS 3 -LB Moving from lying on back to sitting on the side of a flat bed without bedrails? 4 -MS 3 -LB Moving to and from a bed to a chair (including a wheelchair)? 4 -MS 3 -LB Standing up from a chair using your arms (e.g., wheelchair, bedside chair)? 3 - MS 3 -LB Climbing 3-5 steps with a railing? 3 -MS 3 -LB To walk in hospital room? 3 -SC 3 -LB AM-PAC 6 Clicks Score (PT) 21 -MS 18 -LB Highest Level of Mobility Goal 6 --> Walk 10 steps or more -MS 6 --> Walk 10 steps or more -LB Row Name 01/07/24 1418 Functional Assessment Outcome Measure Options AM-PAC 6 Clicks Basic Mobility (PT) -MS User Oliver (r) = Recorded By, (t) = Taken By, (c) = Cosigned By Initials Name Provider Type MS Brandon Pimentel PT Physical Therapist Lorna St RN Registered Nurse Physical Therapy Education Title: PT OT HEALTH AND PHYSICAL EDUCATION TEACHER Therapies (In Progress) Topic: Physical Therapy (Done) Point: Mobility training (Done) Learning Progress Summary Patient Eager, E, VU by SC at 01/07/2024 1418 Comment: reviewed benefits of [...] Progress Summary Patient Eager, E, VU by SC at 01/07/2024 1418 Comment: reviewed benefits of [...] Progress Summary Patient Eager, E, VU by SC at 01/07/2024 1418 Comment: reviewed benefits of [...] Progress Summary Patient Eager, E, VU by SC at 01/07/2024 1418 Comment: reviewed benefits of [...] Initials Effective Dates Name Provider Type Discipline SC 12/14/22 - Brandon Pimentel, PT Physical Therapist PT CK 12/17/23 - Dannielle Orellana, PT Physical Therapist PT KR 11/09/22 - Ember Johnson, PT Physical Therapist PT CHUY 09/26/23 - Catalina Guadarrama, PT Physical Therapist PT PT Recommendation and Plan Plan of Care Reviewed With: patient Progress: improving Outcome Evaluation: L foot pain improving alowing for increase ambulation. Time Calculation: PT Charges Row Name 01/07/24 1147 Time Calculation Start Time 1147 -SC PT Received On 01/07/24 -MS PT Goal Re-Cert Due Date 01/13/24 -MS Timed Charges 71587 - Gait Training Minutes 20 -SC Total Minutes Timed Charges Total Minutes 20 -SC Total Minutes 20 -SC User Oliver (r) = Recorded By, (t) = Taken By, (c) = Cosigned By Initials Name Provider Type SC Brandon Pimentel, PT Physical Therapist Therapy Charges for Today Code Description Service Date Service Provider Modifiers Qty [id number] HC GAIT TRAINING EA 15 MIN 01/07/2024 Brandon Pimentel PT GP 1 PT G-Codes Outcome Measure Options: AM-PAC 6 Clicks Basic Mobility (PT) AM-PAC 6 Clicks Score (PT): 21 AM-PAC 6 Clicks Score (OT): 15 PT Discharge Summary Anticipated Discharge Disposition (PT): inpatient rehabilitation facility Brandon Pimentel PT 01/07/2024 * Therapy Treatment Note - Ember Johnson PT - 01/06/2024 2:56 PM EST Images from the original note were not included. Patient Name: Santo Cleveland : 1945 Today's Date: 01/06/2024 Admit Date: 01/01/2024 Visit Dx: ICD-10-CM ICD-9-CM 1. Spinal stenosis of lumbar region with neurogenic claudication M48.062 724.03 Patient Active Problem List Diagnosis Atrial fibrillation Hypercholesterolemia Coronary artery disease involving [place] heart without angina pectoris Essential hypertension Abnormal [...] LAMINECTOMY L3-4; Surgeon: Hank Hitchcock MD; Location: [facility]; Service: Neurosurgery; Laterality: N/A; SHOULDER ARTHROSCOPY Right [...] (Cognition) oriented x 3 -KR Row Name 01/06/24 1533 Safety Issues, Functional Mobility Safety Issues Affecting Function (Mobility) insight into deficits/self- awareness;safety precaution awareness -KR Impairments Affecting Function (Mobility) balance;strength;pain;endurance/activity tolerance -KR User Oliver (r) = Recorded By, (t) = Taken By, (c) = Cosigned By Initials Name Provider Type KR Ember Johnson PT Physical Therapist Mobility Row Name 01/06/24 1534 Sit-Stand Transfer Sit-Stand [place] (Transfers) verbal cues;standby assist -KR Assistive Device (Sit-Stand Transfers) walker, front-wheeled -KR Comment, (Sit-Stand Transfer) 2x from chair, 1x from toilet, + addt'l 5x STS from chair. -KR Row Name 01/06/24 1534 Gait/Stairs (Locomotion) [place] Level (Gait) standby assist -KR Assistive Device [...] Provider Type Ember Verde PT Physical Therapist Obj/Interventions Row Name 01/06/24 [...] Provider Type Ember Verde PT Physical Therapist Goals/Plan No documentation. Clinical Impression Row Name 01/06/24 154 Pain Pain Intervention(s) Repositioned;Ambulation/increased activity -KR Additional Documentation Pain Scale: FACES Pre/Post-Treatment (Group) -KR Row Name 01/06/24 154 Pain Scale: FACES Pre/Post-Treatment Pain: FACES Scale, Pretreatment 4-->hurts little more -KR Posttreatment Pain Rating 2-->hurts little bit -KR Pain Location - Side/Orientation Left -KR Pain Location - foot -KR Row Name 01/06/24 154 Plan of Care Review Plan of Care [...] Provider Type Ember Verde PT Physical Therapist Outcome Measures Row Name 01/06/24 [...] Therapist Physical Therapy Education Title: PT OT HEALTH AND PHYSICAL EDUCATION TEACHER Therapies (In Progress) Topic: Physical Therapy (Done) Point: Mobility training (Done) Learning Progress Summary Patient Acceptance, E, VU by JAYLENE at 01/06/2024 1553 Eager, E, VU by LAURA at 01/05/2024 1129 Comment: reviewed HEp Acceptance, E, VU by EDNA at 01/04/2024 1118 Acceptance, E, VU by [...] at 01/06/2024 155 Eager, E, VU by MS at 01/05/2024 112 Comment: reviewed HEp Acceptance, E, VU by CK at 01/04/2024 1118 Acceptance, E, VU by ND at 01/03/2024 0942 Family Acceptance, E, VU by KR at 01/06/2024 1553 Acceptance, E, VU by CK at 01/04/2024 1118 User Oliver Initials Effective Dates Name Provider Type Discipline MS 12/14/22 - Brandon Pimentel, PT Physical Therapist [...] deficits. Time Calculation: PT Charges Row Name 01/06/24 1554 Time Calculation Start Time 1456 -KR PT Received On 01/06/24 -KR Timed Charges 78377 - PT Therapeutic Exercise Minutes 5 -KR 93815 - PT Therapeutic Activity Minutes 18 -KR Total Minutes Timed Charges Total Minutes 23 -KR Total Minutes 23 -KR User Oliver (r) = Recorded By, (t) = Taken By, (c) = Cosigned By Initials Name Provider Type Ember Verde PT Physical Therapist Therapy Charges for Today Code Description Service Date Service Provider Modifiers Qty [id number] PT THER PROC EA 15 MIN 01/06/2024 Ember Johnson PT GP 1 69481629157 HC PT THERAPEUTIC ACT EA 15 MIN 01/06/2024 Ember Johnson PT GP 1 PT G-Codes Outcome Measure Options: AM-PAC 6 Clicks Basic Mobility (PT) AM-PAC 6 Clicks Score (PT): 18 AM-PAC 6 Clicks Score (OT): 15 Ember Johnson PT 01/06/2024 * Case Management/Social Work - Stacey Kenney RN - 01/06/2024 11:52 AM EST Continued Stay Note [facility] Patient Name: Santo Cleveland Today's Date: 01/06/2024 Admit Date: 01/01/2024 Plan: Skilled Rehab Discharge Plan Row Name 01/06/24 1150 Plan Plan Skilled Rehab Patient/Family in Agreement with Plan yes Plan Comments Claims Service Representative spoke with pt and his daughter, at the bedside. PT/OT recommended skilled rehab. Pt would really like to be somewhere in [place]. They would like referrals to [facility] [place], and [facility]. Claims Service Representative spoke with Ina/Vonnie, she is unsure that they are in network. She requested CM fax all information today. CM let [facility] know pt is medically ready . Information faxed, confirmed fax number in [employer]. CM spoke with [facility], on the phone. She will review in [facility]. CM did not make referral to [facility], as of today, since pt prefers [place]. Claims Service Representative will continue to follow. 1450-[facility] called CM and stated she has a private bed available for pt. CM spoke with pt's daughter, on the phone, pt and daughter are agreeable. [facility] will start insurance precert today. Final Discharge Disposition Code 03 - long term facility (SNF) Discharge Codes No documentation. Expected Discharge Date and Time Expected Discharge Date Expected Discharge Time Jan 08, 2024 Stacey Kenney, RN * Therapy Treatment Note - Brandon Pimentel, PT - 01/05/2024 11:29 AM EST Patient Name: Santo Cleveland : 1945 Today's Date: 01/05/2024 Admit Date: 01/01/2024 Visit Dx: ICD-10-CM ICD-9-CM 1. Spinal stenosis of lumbar region with neurogenic claudication M48.062 724.03 Patient Active Problem List Diagnosis Atrial fibrillation Hypercholesterolemia Coronary artery disease involving [place] heart without angina pectoris Essential hypertension Abnormal [...] LAMINECTOMY L3-4; Surgeon: Hank Hitchcock MD; Location: [facility]; Service: Neurosurgery; Laterality: N/A; SHOULDER ARTHROSCOPY Right TEETH EXTRACTION General Information Row Name 01/05/24 1122 Physical Therapy Time and Intention Document Type therapy note (daily note) -MS Mode of Treatment physical therapy;individual therapy -MS Row Name 01/05/24 112 General Information Patient Profile Reviewed yes -MS Existing Precautions/Restrictions fall;seizures -MS Row Name 01/05/24 112 Cognition Orientation Status (Cognition) oriented x 3 -MS Row Name 01/05/24 112 Safety Issues, Functional Mobility Impairments Affecting Function (Mobility) balance;strength;pain;postural/trunk control;endurance/activity tolerance -MS Comment, Safety Issues/Impairments (Mobility) alert, following commands -MS User Oliver (r) = Recorded By, (t) = Taken By, (c) = Cosigned By Initials Name Provider Type MS Brandon Pimentel PT Physical Therapist Mobility Row Name 01/05/24 112 Bed Mobility Comment, (Bed Mobility) uic -MS Row Name 01/05/24 112 Transfers Comment, (Transfers) cues for hand placement. Able to get to standing without assistance -MS Row Name 01/05/24 112 Sit-Stand Transfer Sit-Stand [place] (Transfers) verbal cues;standby assist -MS Assistive Device (Sit-Stand Transfers) walker, front-wheeled -[facility] Name 01/05/24 112 Gait/Stairs (Locomotion) [place] Level (Gait) 1 person assist;contact guard;verbal cues -MS Assistive Device (Gait) walker, front-wheeled [facility] Deviations/Abnormal Patterns (Gait) gait speed decreased;left sided deviations;antalgic;weight shifting decreased -MS Bilateral Gait Deviations forward flexed posture -MS Left Sided Gait Deviations weight shift ability decreased;heel strike decreased -MS Comment, (Gait/Stairs) Gt training focused on controling walker in hallway. Encouraged upright posture frequently. c/o L foot pain throught session limiting distance. Rn aware -MS User Oliver (r) = Recorded By, (t) = Taken By, (c) = Cosigned By Initials Name Provider Type MS Brandon Pimentel PT Physical Therapist Obj/Interventions Row Name 01/05/24 112 Motor Skills Therapeutic Exercise hip;knee;ankle -[facility] Name 01/05/24 112 Hip (Therapeutic Exercise) Hip (Therapeutic Exercise) AROM (active range of motion) -MS Hip Isometrics (Therapeutic Exercise) bilateral;flexion;extension;aBduction;aDduction;10 repetitions -[facility] 01/05/24 1125 Ankle (Therapeutic Exercise) Ankle (Therapeutic Exercise) AROM (active range of motion) -MS Ankle AROM (Therapeutic Exercise) bilateral;dorsiflexion;plantarflexion;10 repetitions -[facility] 01/05/24 1125 Balance Balance Assessment standing dynamic balance -MS Dynamic Standing Balance 1-person assist;contact guard;verbal cues -MS Position/Device Used, Standing Balance supported;walker, rolling -MS Comment, Balance unsteady -MS User Oliver (r) = Recorded By, (t) = Taken By, (c) = Cosigned By Initials Name Provider Type MS Brandon Pimentel, PT Physical Therapist Goals/Plan No documentation. Clinical Impression [facility] 01/05/24 1125 Pain Pretreatment Pain Rating 7/10 -MS Posttreatment Pain Rating 9/10 -MS Pain Location - Side/Orientation Left -MS Pain Location - foot -MS Pre/Posttreatment Pain Comment anterior 1st ray and tarsal jt -MS Pain Intervention(s) Cold applied -[facility] 01/05/245 Plan of Care Review Plan of Care Reviewed With patient -MS Progress improving -MS Outcome Evaluation Patient's gait continues to be limited by c/o L foot pain. He was still able to participate in some ambulation activities in hallway -[facility] 01/05/24 1125 Therapy Assessment/Plan (PT) Rehab Potential (PT) good, to achieve stated therapy goals -MS Criteria for Skilled Interventions Met (PT) yes;meets criteria;skilled treatment is necessary -MS Therapy Frequency (PT) daily -[facility] 01/05/24 1125 Positioning and Restraints Pre-Treatment Position sitting in chair/recliner -MS Post Treatment Position chair -MS In Chair notified nsg;reclined;sitting;call light within reach;encouraged to call for assist;with family/caregiver;exit alarm on -MS User Oliver (r) = Recorded By, (t) = Taken By, (c) = Cosigned By Initials Name Provider Type MS Brandon Pimentel, PT Physical Therapist Outcome Measures [facility] Name 01/05/24 1129 01/05/24 0855 How much help from another person do you currently need... Turning from your back to your side while in flat bed without using bedrails? 3 -MS 3 -AP Moving from lying on back to sitting on the side of a flat bed without bedrails? 3 -MS 3 -AP Moving to and from a bed to a chair (including a wheelchair)? 3 -MS 3 -AP Standing up from a chair using your arms (e.g., wheelchair, bedside chair)? 3 - MS 3 -AP Climbing 3-5 steps with a railing? 3 -MS 2 -AP To walk in hospital room? 3 -MS 3 -AP AM-PAC 6 Clicks Score (PT) 18 -MS 17 -AP Highest Level of Mobility Goal 6 --> Walk 10 steps or more -MS 5 --> Static standing -AP Row Name 01/05/24 1129 Functional Assessment Outcome Measure Options AM-PAC 6 Clicks Basic Mobility (PT) -MS User Oliver (r) = Recorded By, (t) = Taken By, (c) = Cosigned By Initials Name Provider Type SC Brandon Pimentel, PT Physical Therapist AP Radha Rogers, RN Registered Nurse Physical Therapy Education Title: PT OT HEALTH AND PHYSICAL EDUCATION TEACHER Therapies (In Progress) Topic: Physical Therapy (Done) Point: Mobility training (Done) Learning Progress Summary Patient Eager, E, VU by MS at 01/05/2024 112 Comment: reviewed HEp Acceptance, E, VU by CK at 01/04/2024 1118 Acceptance, E, VU by ND at 01/03/2024 0942 Family Acceptance, E, VU by CK at 01/04/2024 111 Point: Home exercise program (Done) Learning Progress Summary Patient Eager, E, VU by MS at 01/05/2024 112 Comment: reviewed HEp Acceptance, E, VU by CK at 01/04/2024 1118 Family Acceptance, E, VU by CK at 01/04/2024 1118 Point: Body mechanics (Done) Learning Progress Summary Patient Eager, E, VU by SC at 01/05/2024 112 Comment: reviewed HEp Acceptance, E, VU by CK at 01/04/2024 1118 Acceptance, E, VU by ND at 01/03/2024 0942 Family Acceptance, E, VU by CK at 01/04/2024 1118 Point: Precautions (Done) Learning Progress Summary Patient Eager, E, VU by SC at 01/05/2024 112 Comment: reviewed HEp Acceptance, E, VU by CK at 01/04/2024 1118 Acceptance, E, VU by ND at 01/03/2024 0942 Family Acceptance, E, VU by CK at 01/04/2024 1118 User Oliver Initials Effective Dates Name Provider Type Discipline MS 12/14/22 - Brandon Pimentel, PT Physical Therapist [...] 01/05/24 1029 Time Calculation Start Time 1029 -SC PT Received On 01/05/24 -MS PT Goal Re-Cert Due Date 01/13/24 -MS Timed Charges 69637 - PT Therapeutic Exercise Minutes 5 -SC 30782 - Gait Training Minutes 15 -SC Total Minutes Timed Charges Total Minutes 20 -SC Total Minutes 20 -SC User Oliver (r) = Recorded By, (t) = Taken By, (c) = Cosigned By Initials Name Provider Type SC Brandon Pimentel, PT Physical Therapist Therapy Charges for Today Code Description Service Date Service Provider Modifiers Qty 87276524109 HC GAIT TRAINING EA 15 MIN 01/05/2024 [...] note were not included. Patient Name: Santo Cleveland : 1945 Today's Date: 01/04/2024 Admit Date: 01/01/2024 Visit Dx: ICD-10-CM ICD-9-CM 1. Spinal stenosis of lumbar region with neurogenic claudication M48.062 724.03 Patient Active Problem List Diagnosis Atrial fibrillation Hypercholesterolemia Coronary artery disease involving [place] heart without angina pectoris Essential hypertension Abnormal [...] LAMINECTOMY L3-4; Surgeon: Hank Hitchcock MD; Location: [facility]; Service: Neurosurgery; Laterality: N/A; SHOULDER ARTHROSCOPY Right TEETH EXTRACTION General Information Row Name 01/04/24 1108 Physical Therapy Time and Intention Document Type therapy note (daily note) -CK Mode of Treatment physical therapy;individual therapy -CK Row Name 01/04/24 1108 General Information Patient Profile Reviewed yes -CK Existing Precautions/Restrictions fall;seizures -CK Barriers to Rehab medically complex -CK Row Name 01/04/24 1108 Cognition Orientation Status (Cognition) oriented x 3 -CK Row Name 01/04/24 1108 Safety Issues, Functional Mobility Safety Issues Affecting [...] Bed Mobility Bed Mobility supine-sit -CK Supine-Sit [place] (Bed Mobility) minimum assist (75% patient effort);1 person assist;verbal cues -CK Assistive Device (Bed Mobility) bed rails -CK Comment, (Bed Mobility) cues provided for logroll technique, patient demo'd good sequencing with this, Seth to lift trunk from HOB -CK Row Name 01/04/24 1109 Sit-Stand Transfer Sit-Stand [place] (Transfers) contact guard;1 person assist;verbal cues -CK Assistive Device (Sit-Stand Transfers) walker, front-wheeled -CK Comment, (Sit-Stand Transfer) cues to push up from bed/grab bar in bathroom -CK Row Name 01/04/24 1109 Gait/Stairs (Locomotion) [place] Level (Gait) moderate assist (50% patient effort);1 [...] repetitions;3 second hold -CK Row Name 01/04/24 111 Ankle (Therapeutic Exercise) Ankle (Therapeutic Exercise) AROM [...] Type CK Dannielle Orellana, VIDYA Physical Therapist Goals/Plan No documentation. Clinical Impression [...] = Cosigned By Initials Name Provider Type Dannielle Burnette, VIDYA Physical Therapist Outcome Measures Row Name [...] chair/commode -AP (r) LJ (t) Row Name 01/04/24 1118 Functional Assessment Outcome Measure Options AM-PAC 6 Clicks Basic Mobility (PT) -CK User Oliver (r) = Recorded By, (t) = Taken By, (c) = Cosigned By Initials Name Provider Type Radha Yip, RN Registered Nurse Sabrina Bhatt, Communications Engineer Communications Engineer Dannielle Burnette PT Physical Therapist Physical Therapy Education Title: PT OT HEALTH AND PHYSICAL EDUCATION TEACHER Therapies (In Progress) Topic: Physical Therapy (Done) Point: Mobility training (Done) Learning Progress Summary Patient Acceptance, E, VU by CK at 01/04/20248 Acceptance, E, VU by ND at 01/03/2024 0942 Family Acceptance, E, VU by CK at 01/04/2024 1118 Point: Home exercise program (Done) Learning Progress Summary Patient Acceptance, E, VU by CK at 01/04/2024 1118 Family Acceptance, E, VU by CK at 01/04/2024 1118 Point: Body mechanics (Done) Learning Progress Summary Patient Acceptance, E, VU by CK at 01/04/20241117 Acceptance, E, VU by ND at 01/03/2024 0942 Family Acceptance, E, VU by CK at 01/04/2024 1118 Point: Precautions (Done) Learning Progress Summary Patient Acceptance, E, VU by CK at 01/04/20248 Acceptance, E, VU by ND at 01/03/2024 [...] time. Time Calculation: PT Charges Row Name 01/04/241117 Time Calculation Start Time 0954 -CK PT Received On 01/04/24 -CK PT Goal Re-Cert Due Date 01/13/24 -CK Timed Charges 93731 - PT Therapeutic Exercise Minutes 10 -CK 30676 - Gait Training Minutes 11 -CK 43306 - PT Therapeutic Activity Minutes 5 -CK Total Minutes Timed Charges Total Minutes 26 -CK Total Minutes 26 -CK User Oliver (r) = Recorded By, (t) = Taken By, (c) = Cosigned By Initials Name Provider Type CK Dannielle Orellana, PT Physical Therapist Therapy Charges for Today Code Description Service Date Service Provider Modifiers Qty 76066847711 HC PT THER PROC EA 15 MIN 01/04/2024 Dannielle Orellana, PT GP 1 63457293884 HC GAIT TRAINING EA 15 MIN 01/04/2024 Dannielle Orellana, PT GP 1 PT G-Codes Outcome Measure Options: AM-PAC 6 Clicks Basic Mobility (PT) AM-PAC 6 Clicks Score (PT): 17 AM-PAC 6 Clicks Score (OT): 15 PT Discharge Summary Anticipated Discharge Disposition (PT): inpatient rehabilitation facility Dannielle Orellana, PT 01/04/2024 * Therapy Evaluation - Rocio Wilson, OT - 01/03/2024 1:15 PM EST Images from the original note were not included. Patient Name: Santo Cleveland : 1945 Today's Date: 01/03/2024 Admit Date: 01/01/2024 Visit Dx: ICD-10-CM ICD-9-CM 1. Spinal stenosis of lumbar region with neurogenic claudication M48.062 724.03 Patient Active Problem List Diagnosis Atrial fibrillation Hypercholesterolemia Coronary artery disease involving [place] heart without angina pectoris Essential hypertension Abnormal [...] LAMINECTOMY L3-4; Surgeon: Hank Hitchcock MD; Location: [facility]; Service: Neurosurgery; Laterality: N/A; SHOULDER ARTHROSCOPY Right [...] Entrance Number of Stairs, Main Entrance one - Row Name 01/03/24 1446 Stairs Within Home, Primary Number of Stairs, Within Home, Primary two - Row Name 01/03/24 1446 Cognition Orientation Status (Cognition) oriented x 3;situation - Row Name 01/03/24 144 Safety Issues, Functional Mobility Impairments Affecting Function (Mobility) balance;strength;pain;postural/trunk control;endurance/activity tolerance - User Oliver (r) = Recorded By, (t) = Taken By, (c) = Cosigned By Initials Name Provider Type Rocio Wilson OT Occupational Therapist Mobility/ADL's Row Name 01/03/24 144 Bed Mobility Bed Mobility rolling left;rolling right - Rolling Left [place] (Bed Mobility) minimum assist (75% patient effort);verbal cues - Rolling Right [place] (Bed Mobility) minimum assist (75% patient effort);verbal cues - Assistive Device (Bed Mobility) bed rails;draw sheet - Row Name 01/03/24 144 Transfers Transfers bed-chair transfer;sit-stand transfer;stand-sit transfer - Row Name 01/03/24 144 Bed-Chair Transfer Bed-Chair [place] (Transfers) dependent (less than 25% patient effort);2 person assist;verbal cues - Assistive Device (Bed-Chair Transfers) lift device - Row Name 01/03/241446 Sit-Stand Transfer Sit-Stand [place] (Transfers) minimum assist (75% patient effort);2 person assist;verbal cues - Assistive Device (Sit-Stand Transfers) walker, front-wheeled - Row Name 01/03/241446 Stand-Sit Transfer Stand-Sit [place] (Transfers) minimum assist (75% patient effort);2 person assist;verbal cues - Assistive Device (Stand-Sit Transfers) walker, front-wheeled - Row Name 01/03/24 144 Functional Mobility Functional Mobility- Ind. Level moderate assist (50% patient effort);2 person assist required;verbal cues required - Functional Mobility- Device walker, front-wheeled - Functional Mobility-Distance (Feet) -- household distance - Functional Mobility- Comment Pt initially Min Ax2 however developed posterior lean and noted R kneebuckling w/ c/o fatigue, close chair follow - Row Name 01/03/24 1447 Activities of Daily Living BADL Assessment/Intervention lower body dressing;feeding - Row Name 01/03/24 144 Lower Body Dressing Assessment/Training [place] Level (Lower Body Dressing) don;socks;dependent (less than 25% patient effort) - Position (Lower Body Dressing) supine - Row Name 01/03/24 144 Self-Feeding Assessment/Training [place] Level (Feeding) liquids to mouth;set up;finger foods - Position (Self-Feeding) supported sitting - User Oliver (r) = Recorded By, (t) = Taken By, (c) = Cosigned By Initials Name Provider Type Rocio Wilson OT Occupational Therapist Obj/Interventions Row Name 01/03/24 144 Sensory Assessment (Somatosensory) Sensory Assessment (Somatosensory) UE sensation intact -[facility] Name 01/03/24 144 Range of Motion Comprehensive General Range of Motion bilateral upper extremity ROM WFL -[facility] Name 01/03/24 1448 Strength Comprehensive (MMT) Comment, General Manual Muscle Testing (MMT) Assessment Deferred - Row Name 01/03/24 144 Balance Balance Assessment sitting static balance;sitting dynamic balance;standing static balance;standing dynamic balance - Static Sitting Balance standby assist -CS Dynamic Sitting Balance contact guard -CS Position, [...] Type Rocio Wilson OT Occupational Therapist Goals/Plan [facility] Name 01/03/24 144 Transfer Goal 1 (OT) Activity/Assistive Device (Transfer Goal 1, OT) lxc-ga-omvlf/bxmtx-hn-ilx;toilet - [place] Level/Cues Needed (Transfer Goal 1, OT) minimum assist (75% or more patient effort) - Time Frame (Transfer Goal 1, OT) foil spooler goal (LTG);10 days - Progress/Outcome (Transfer Goal 1, OT) goal ongoing - Row Name 01/03/24 144 Dressing Goal 1 (OT) Activity/Device (Dressing Goal 1, OT) lower body dressing -CS [place]/Cues Needed (Dressing Goal 1, OT) minimum assist (75% or more patient effort) -CS Time Frame (Dressing Goal 1, OT) mcfp goal (LTG);10 days -CS Strategies/Barriers (Dressing Goal 1, OT) don/doff socks w/ AAD -CS Progress/Outcome (Dressing Goal 1, OT) goal ongoing -CS Row Name 01/03/24 1449 Toileting Goal 1 (OT) Activity/Device (Toileting Goal 1, OT) adjust/manage clothing;perform perineal hygiene -CS [place] Level/Cues Needed (Toileting Goal 1, OT) moderate assist (50-74% patient effort) -CS Time Frame (Toileting Goal 1, OT) foil spooler goal (LTG);10 days -CS Progress/Outcome (Toileting Goal 1, OT) goal ongoing -CS Row Name 01/03/24 2438 Therapy Assessment/Plan (OT) Planned Therapy Interventions (OT) activity tolerance training;adaptive equipment training;BADL retraining;functional balance retraining;occupation/activity based interventions;ROM/therapeutic exercis e;strengthening exercise;transfer/mobility retraining -CS User Oliver (r) = Recorded By, (t) = Taken By, (c) = Cosigned By Initials Name Provider Type CS Rocio Wilson, DAVID Occupational Therapist Clinical Impression Row Name 01/03/24 [...] Type CS Rocio Wilson OT Occupational Therapist Catalina Doyle PT Physical Therapist Occupational Therapy Education Title: PT OT HEALTH AND PHYSICAL EDUCATION TEACHER Therapies (In Progress) Topic: Occupational Therapy (In [...] at 01/03/20241449 Family Acceptance, E, NR by at 01/03/20241449 User Oliver Initials Effective Dates Name Provider Type Discipline 07/13/21 - Rocio Wilson OT Occupational Therapist [...] Re-Cert Due Date 01/13/24 -CS Timed Charges 50253 - OT Therapeutic Activity Minutes 18 -CS 25100 - OT Self Care/Mgmt Minutes 5 -CS [...] Description Service Date Service Provider Modifiers Qty 65100206698 HC OT THERAPEUTIC ACT EA 15 MIN 01/03/2024 Rocio Wilson OT GO 1 34421193334 HC OT SELF CARE/MGMT/TRAIN EA 15 MIN 01/03/2024 Rocio Wilson OT GO 1 73950430846 HC OT EVAL MOD COMPLEXITY 3 01/03/2024 Rocio Wilson OT GO 1 43796408731 HC OT THER SUPP EA 15 MIN 01/03/2024 Rocio Wilson OT GO 2 Rocio Wilson OT 01/03/2024 * Case Management/Social Work - Didi Lawrence RN - 01/03/2024 11:46 AM EST Images from the original note were not included. Discharge Planning Assessment [facility] Patient Name: Santo Cleveland Today's Date: 01/03/2024 Admit Date: 01/01/2024 Plan: [...] Needed child(juana), adult Family Caregiver Names Cathy Cleveland, daughter Quality of Family Relationships helpful;involved;supportive Resource/Environmental [...] rehabilitation facility Patient/Family Anticipated Services at Transition corrections caseworkerassistant purchasing manager Anticipated family or friend will provide Discharge Needs Assessment Equipment Currently Used at Home none Concerns to be Addressed discharge planning Discharge Plan Row Name 01/03/24 1137 Plan Plan Rehab Patient/Family in Agreement with Plan yes Plan Comments Spoke with patient and his daughter, Cathy, at bedside to initiate discharge planning. Confirmed patient's residence in [facility]; PCP is Robinson Manley; insurance is [employer] Medicare. Patient is reported to be independent with ADLs and mobility prior to this admission; no DMEor HH. Patient's pharmacy is [facility] in [place]. Discussed therapy recommendations with Cathy; she willfurther [...] Reason for Consult discharge planning Preferred Language [place] Contact Information Permission Granted to Share Info With corrections caseworkerautomotive service manager Status Row Name 01/03/24 1135 Functional [...] note were not included. Patient Name: Santo Cleveland : 1945 Today's Date: 01/03/2024 Admit Date: 01/01/2024 Visit Dx: No diagnosis found. Patient Active Problem List Diagnosis Atrial fibrillation Hypercholesterolemia Coronary artery disease involving [place] heart without angina pectoris Essential hypertension Abnormal [...] LAMINECTOMY L3-4; Surgeon: Hank Hitchcock MD; Location: [facility]; Service: Neurosurgery; Laterality: N/A; SHOULDER ARTHROSCOPY Right TEETH EXTRACTION General Information Row Name 01/03/24 0923 Physical Therapy Time and Intention Document Type evaluation -ND Mode of Treatment physical therapy -ND Row Name 01/03/24922 General Information Patient Profile Reviewed yes -ND Prior Level of Function independent:;all household mobility;gait;transfer;bed mobility -ND Existing Precautions/Restrictions fall;spinal;oxygen therapy device and L/min;seizures Hemovac. -ND Barriers to Rehab medically complex -ND Row Name 01/03/24 0923 Living Environment People in Home alone -ND Row Name 01/03/24 0923 Home Main Entrance Number of Stairs, Main Entrance one -ND Stair Railings, Main Entrance none -ND Row Name 01/03/2423 Stairs Within Home, Primary Number of Stairs, Within Home, Primary two -ND Row Name 01/03/2423 Cognition Orientation Status (Cognition) oriented x 3 -ND Row Name 01/03/2423 Safety Issues, Functional Mobility Safety Issues Affecting Function (Mobility) awareness of need for assistance;insight into deficits/self-awareness;safety precaution awareness;safety precautions follow-through/compliance;sequencing abilities -ND Impairments Affecting Function (Mobility) balance;strength;pain;postural/trunk control;endurance/activity tolerance -ND User Oliver (r) = Recorded By, (t) = Taken By, (c) = Cosigned By Initials Name Provider Type Catalina Doyle PT Physical Therapist Mobility Row Name 01/03/24924 Bed Mobility Bed Mobility supine-sit;sit-supine;rolling left;rolling right -ND Rolling Left [place] (Bed Mobility) moderate assist (50% patient effort) -ND Rolling Right [place] (Bed Mobility) moderate assist (50% patient effort) -ND Supine-Sit [place] (Bed Mobility) moderate assist (50% patient effort) -ND Sit-Supine [place] (Bed Mobility) moderate assist (50% patient effort) [...] to place lift sling. -ND Row Name 01/03/24924 Bed-Chair Transfer Bed-Chair [place] (Transfers) dependent (less than 25% patient effort);2 person assist;verbal cues -ND Assistive Device (Bed-Chair Transfers) lift device -ND Comment, (Bed-Chair Transfer) Pt with decreased tolerance to being upright. Lifted to chair where pt reporting 10/10 pain and RN administered pain medication. Pt with increased fatigue following painmedication and lifted back to bed per RN request. -ND Row Name 01/03/24924 Sit-Stand Transfer Sit-Stand [place] (Transfers) unable to assess -ND Row Name 01/03/24924 Gait/Stairs (Locomotion) [place] Level (Gait) unable to assess -ND Comment, (Gait/Stairs) Deferred ambulation due to pain. -ND User Oliver (r) = Recorded By, (t) = Taken By, (c) = Cosigned By Initials Name Provider Type Catalina Doyle PT Physical Therapist Obj/Interventions Row Name 01/03/24929 Range of Motion Comprehensive General Range of Motion bilateral lower extremity ROM WFL -ND Row Name 01/03/24929 Strength Comprehensive (MMT) General Manual Muscle Testing (MMT) Assessment other (see comments);lower extremity strength deficits identified Difficult to assess, will assess further next session. -ND Row Name 01/03/24929 Balance Balance Assessment sitting static balance;sitting dynamic balance -ND Static Sitting Balance contact guard -ND Dynamic Sitting Balance moderate assist -ND Position, Sitting Balance unsupported;sitting edge of bed -ND Balance Interventions sitting;static;dynamic -ND Comment, Balance Cues for upright posture in sitting. -ND Row Name 01/03/24929 Sensory Assessment (Somatosensory) Sensory Assessment (Somatosensory) LE sensation intact -ND User Oliver (r) = Recorded By, (t) = Taken By, (c) = Cosigned By Initials Name Provider Type Catalina Doyle, PT Physical Therapist Goals/Plan Row Name 01/03/24937 Bed Mobility Goal 1 (PT) Activity/Assistive Device (Bed Mobility Goal 1, PT) sit to supine/supine to sit -ND [place] Level/Cues Needed (Bed Mobility Goal 1, PT) independent -ND Time Frame (Bed Mobility Goal 1, PT) mcfp goal (LTG);10 days -ND Row Name 01/03/24937 Transfer Goal 1 (PT) Activity/Assistive Device (Transfer Goal 1, PT) afs-td-ovumb/rspcc-vc-ili;sxk-ca-sihuk/onfwd-hw-mjh-ND [place] Level/Cues Needed (Transfer Goal 1, PT) independent -ND Time Frame (Transfer Goal 1, PT) foil spooler goal (LTG);10 days -ND Row Name 01/03/24937 Gait Training Goal 1 (PT) Activity/Assistive Device (Gait Training Goal 1, PT) gait (walking locomotion);increase endurance/gait distance;decrease fall risk -ND [place] Level (Gait Training Goal 1, PT) independent -ND Distance (Gait Training Goal 1, PT) 500 -ND Time Frame (Gait Training Goal 1, PT) foil spooler goal (LTG);10 days -ND Row Name 01/03/24937 [...] IRF pending progress. -ND Row Name 01/03/24 09 Therapy Assessment/Plan (PT) Patient/Family Therapy Goals Statement (PT) Return to PLOF. -ND Rehab Potential (PT) good, to achieve stated therapy goals -ND Criteria for Skilled Interventions Met (PT) yes;meets criteria;skilled treatment is necessary -ND Therapy Frequency (PT) daily -ND Row Name 01/03/2434 Vital Signs Pre Systolic BP Rehab 127 [...] Post Patient Position Supine -ND Row Name 01/03/2434 Positioning and Restraints Pre-Treatment Position in bed [...] Type ND Catalina Guadarrama, PT Physical Therapist Physical Therapy Education Title: PT OT HEALTH AND PHYSICAL EDUCATION TEACHER Therapies (In Progress) Topic: Physical Therapy (In Progress) Point: Mobility training (Done) Learning Progress Summary Patient Acceptance, E, VU by ND at 01/03/2024 0942 Point: Home exercise program (Not Started) Learner Progress: Not documented in this visit. Point: Body mechanics (Done) Learning Progress Summary Patient Acceptance, E, VU by ND at 01/03/2024 0942 Point: Precautions (Done) Learning Progress Summary Patient Acceptance, E, VU by ND at 01/03/2024 0942 User Oliver Initials Effective Dates Name Provider Type Discipline ND 09/26/23 - Catalina Guadarrama, PT Physical [...] Complexity): moderate complexity PT Charges Row Name 01/03/24 0942 Time Calculation Start Time 07 -ND PT Received On 01/03/24 -ND PT Goal Re-Cert Due Date 01/13/24 -ND Untimed Charges PT Eval/Re-eval Minutes 50 -ND Total Minutes Untimed Charges Total Minutes 50 -ND Total Minutes 50 -ND User Oliver (r) = Recorded By, (t) = Taken By, (c) = Cosigned By Initials Name Provider Type ND Catalina Guadarrama, PT Physical Therapist Therapy Charges for Today Code Description Service Date Service Provider Modifiers Qty [id number] HC PT EVAL MOD COMPLEXITY 4 01/03/2024 Catalina Guadarrama, PT GP 1 PT G-Codes Outcome Measure Options: AM-PAC 6 Clicks Basic Mobility (PT) AM-PAC 6 Clicks Score (PT): 11 PT Discharge Summary Anticipated Discharge Disposition (PT): inpatient rehabilitation facility Catalina Guadarrama PT 01/03/2024 * Case Management/Social Work - Isis Cancino RN - 01/02/2024 3:33 PM EST Continued Stay Note [facility] Patient Name: Santo Cleveland Today's Date: 01/02/2024 Admit Date: 01/01/2024 Plan: TBD Discharge Plan Row Name 01/02/24 1509 Plan Plan TBD Patient/Family in Agreement with Plan unable to assess Plan Comments Per MDR, Mr. Cleveland is disoriented presently. I have attempted to contact his nephew/Tay PRICE by phone without success to initiate discharge planning. I did leave a message to return call to . Per Chart review, Mr. Cleveland lives in [facility]. He is now being followed by [...] a patient Discharge Codes No documentation. Isis Cancino, RN * Significant Note - Valdemar Curran APRN - 01/01/2024 10:23 PM EST Called to bedside to speak w/ family r/t questions they had about POC & EEG finding. I answeredthese to the best of my ability. They presented us with POA & advance directive paperwork. See orders (no feeding tubes, DNR/DNI). RN to update primary service. Addendum - [id number] Primary service aware. documented in this encounter Plan of Treatment Upcoming Encounters Date Type Department Care Team (Late st Contact Info) Description 12/15/2024 8:30 AM EST Office Visit [facility] [address] [phone] Hannah Martinez APRN [address] [id number] 02/04/2025 9:00 AM EDT Office Visit [facility] [address] [facility] [address] [place] [address] Britany Braxton MD [address] [facility] [address] [place] [address] documented as of this encounter [...] DURING SURGERY Routine 01/01/2024 2:[address] [facility]AMOT[facility] 1 VRT SGM LUMBAR 01/01/2024 1:16 PM EST Spinal stenosis of lumbar region, unspecified whether neurogenic claudication present Special Needs FILMS ON PAX, C-ARM + SCANNED - TELEMETRY 01/01/2024 SCANNED - TELEMETRY 01/01/2024 documented in this encounter Results * Magnesium (01/07/2024 5:41 AM EST) Pathologist [facility] Magnesium 1.8 1.6 - 2.4 mg/dL 01/07/2024 6:53 AM EST [facility] Blood Venipuncture / Unknown 01/07/2024 5:41 AM EST 01/07/2024 6:11 AM EST us Brown Rodriguez MD LAB BLOOD ORDERABLES Final Res ult [facility]
[address] [place] [address], * (ABNORMAL) Basic Metabolic Panel (01/07/2024 5:41 AM EST) Pathologist [facility] Glucose 169(H) 65 - 99 mg/dL 01/07/2024 6:53 AM EST [facility] BUN 20 8 - 23 mg/dL 01/07/2024 6:53 AM EST [facility] Creatinine 1.10 0.76 - 1.27 mg/dL 01/07/2024 6:53 AM EST [facility] Sodium 135(L) 136 - 145 mmol/L 01/07/2024 6:53 AM EST [facility] Potassium 4.2 3.5 - 5.2 mmol/L 01/07/2024 6:53 AM EST [facility] Chloride 101 98 - 107 mmol/L 01/07/2024 6:53 AM EST [facility] CO2 25.0 22.0 - 29.0 mmol/L 01/07/2024 6:53 AM EST [facility] Calcium 9.2 8.6 - 10.5 mg/dL 01/07/2024 6:53 AM EST [facility] BUN/Creatinine Ratio 18.2 7.0 - 25.0 01/07/2024 6:53 AM EST [facility] Anion Gap 9.0 5.0 - 15.0 mmol/L 01/07/2024 6:53 AM EST [facility] eGFR 69.1 >60.0 mL/min/1.7 3 01/07/2024 6:53 AM [facility] Blood Venipuncture / Unknown 01/07/2024 5:41 AM EST 01/07/2024 6:11 AM EST [facility] - 01/07/2024 6:53 AM EST GFR Normal >60 Chronic Kidney Disease <60 Kidney Failure <15 The GFR formula is only valid for adults with stable renal function between ages 18 and 70. us Brown Rodriguez MD LAB BLOOD ORDERABLES Final Res ult [facility]
[address] [place] [address], * Potassium (01/06/2024 6:00 PM EST) Potassium 4.8 3.5 - 5.2 mmol/L 01/06/2024 6:47 PM EST [facility] Comment:Slight hemolysis det ected by analyzer. Result may be falsely elevated. Blood Venipuncture / Unknown 01/06/2024 6:00 PM EST 01/06/2024 6:33 PM EST us Brown Rodriguez MD LAB BLOOD ORDERABLES Final Res ult [facility]
[address] [place] [address], * Magnesium (01/06/2024 5:07 AM EST) Pathologist [facility] Magnesium 1.7 1.6 - 2.4 mg/dL 01/06/2024 6:18 AM EST [facility] Blood Venipuncture / Unknown 01/06/2024 5:07 AM EST 01/06/2024 5:38 AM EST Brown Rodriguez MD LAB BLOOD ORDERABLES Final Res ult [facility]
[address] [place] [address], * (ABNORMAL) Basic Metabolic Panel (01/06/2024 5:07 AM EST) Pathologist [facility] Glucose 189(H) 65 - 99 mg/dL 01/06/2024 6:18 AM EST [facility] BUN 21 8 - 23 mg/dL 01/06/2024 6:18 AM [facility] Creatinine 1.11 0.76 - 1.27 mg/dL 01/06/2024 6:18 AM [facility] Sodium 135(L) 136 - 145 mmol/L 01/06/2024 6:18 AM EST [facility] Potassium 3.4(L) 3.5 - 5.2 mmol/L 01/06/2024 6:18 AM [facility] Chloride 100 98 - 107 mmol/L 01/06/2024 6:18 AM EST [facility] CO2 24.0 22.0 - 29.0 mmol/L 01/06/2024 6:18 AM EST [facility] Calcium 8.4(L) 8.6 - 10.5 mg/dL 01/06/2024 6:18 AM EST [facility] BUN/Creatinine Ratio 18.9 7.0 - 25.0 01/06/2024 6:18 AM EST [facility] Anion Gap 11.0 5.0 - 15.0 mmol/L 01/06/2024 6:18 AM EST [facility] eGFR 68.4 >60.0 mL/min/1.7 3 01/06/2024 6:18 AM EST [facility] Blood Venipuncture / Unknown 01/06/2024 5:07 AM EST 01/06/2024 5:38 AM EST Narrative [facility] - 01/06/2024 6:18 AM EST GFR Normal >60 Chronic Kidney Disease <60 Kidney Failure <15 The GFR formula is only valid for adults with stable renal function between ages 18 and 70. us Brown Rodriguez MD LAB BLOOD ORDERABLES Final Res ult Performing Organization Address City/[facility] [address]/ZIP Co de Phone Number [facility]
[address] [place] [address], * Magnesium (01/05/2024 5:15 AM EST) Magnesium 1.7 1.6 - 2.4 mg/dL 01/05/2024 6:47 AM EST [facility] Blood Venipuncture / Unknown 01/05/2024 5:15 AM EST 01/05/2024 6:04 AM EST us Brown Rodriguez MD LAB BLOOD ORDERABLES Final Res ult [facility]
[address] [place] [address], * (ABNORMAL) Basic Metabolic Panel (01/05/2024 5:15 AM EST) Glucose 139(H) 65 - 99 mg/dL 01/05/2024 6:47 AM EST [facility] BUN 20 8 - 23 mg/dL 01/05/2024 6:47 AM EST [facility] Creatinine 1.10 0.76 - 1.27 mg/dL 01/05/2024 6:47 AM EST [facility] Sodium 137 136 - 145 mmol/L 01/05/2024 6:47 AM [facility] Potassium 3.4(L) 3.5 - 5.2 mmol/L 01/05/2024 6:47 AM EST [facility] Chloride 103 98 - 107 mmol/L 01/05/2024 6:47 AM [facility] CO2 24.0 22.0 - 29.0 mmol/L 01/05/2024 6:47 AM [facility] Calcium 8.1(L) 8.6 - 10.5 mg/dL 01/05/2024 6:47 AM [facility] BUN/Creatinine Ratio 18.2 7.0 - 25.0 01/05/2024 6:47 AM [facility] Anion Gap 10.0 5.0 - 15.0 mmol/L 01/05/2024 6:47 AM [facility] eGFR 69.1 >60.0 mL/min/1.7 3 01/05/2024 6:47 AM [facility] Blood Venipuncture / Unknown 01/05/2024 5:15 AM EST 01/05/2024 6:04 AM EST [facility] - 01/05/2024 6:47 AM EST GFR Normal >60 Chronic Kidney Disease <60 Kidney Failure <15 The GFR formula is only valid for adults with stable renal function between ages 18 and 70. us Brown Rodriguez MD LAB BLOOD ORDERABLES Final Res ult [facility]
[address] [place] [address], * POC Glucose Once (01/04/2024 5:31 PM EST) Glucose 94 70 - 130 mg/dL 01/04/2024 5:34 PM EST [facility] Blood 01/04/2024 5:31 PM EST 01/04/2024 5:34 PM EST us Hank Hitchcock MD POINT OF CARE TEST ORDERABLE S Final Result Performing Organization Address [facility] [address] [facility] Co de Phone Number [facility]
[address] [place] [address], * (ABNORMAL) POC Glucose Once (01/04/2024 11:21 AM EST) Glucose 188(H) 70 - 130 mg/dL 01/04/2024 11:22 AM EST [facility] Blood 01/04/2024 11:2 1 AM EST 01/04/2024 11:22 AM EST us Hank Hitchcock MD POINT OF CARE TEST ORDERABLE S Final Result Performing Organization Address [facility]/[place] de Phone Number [facility]
[address] [place] [address], * (ABNORMAL) Basic Metabolic Panel (01/04/2024 4:04 AM EST) Glucose 135(H) 65 - 99 mg/dL 01/04/2024 5:57 AM [facility] BUN 21 8 - 23 mg/dL 01/04/2024 5:57 AM EST [facility] Creatinine 0.96 0.76 - 1.27 mg/dL 01/04/2024 5:57 AM [facility] Sodium 138 136 - 145 mmol/L 01/04/2024 5:57 AM EST [facility] Potassium 3.6 3.5 - 5.2 mmol/L 01/04/2024 5:57 AM [facility] Comment:Slight hemolysis det ected by analyzer. Result may be falsely elevated. Chloride 106 98 - 107 mmol/L 01/04/2024 5:57 AM [facility] CO2 22.0 22.0 - 29.0 mmol/L 01/04/2024 5:57 AM EST [facility] Calcium 8.3(L) 8.6 - 10.5 mg/dL 01/04/2024 5:57 AM EST [facility] BUN/Creatinine Ratio 21.9 7.0 - 25.0 01/04/2024 5:57 AM EST [facility] Anion Gap 10.0 5.0 - 15.0 mmol/L 01/04/2024 5:57 AM EST [facility] eGFR 81.4 >60.0 mL/min/1.7 3 01/04/2024 5:57 AM EST [facility] Blood Venipuncture / Unknown 01/04/2024 4:04 AM EST 01/04/2024 5:18 AM EST [facility] - 01/04/2024 5:57 AM EST GFR Normal >60 Chronic Kidney Disease <60 Kidney Failure <15 The GFR formula is only valid for adults with stable renal function between ages 18 and 70. us Tyrone Vee MD LAB BLOOD ORDERABLES Final Resu lt [facility]
[address] [place] [address], * CBC (No Diff) (01/04/2024 4:04 AM EST) WBC 9.20 3.40 - 10.80 10*3/mm3 01/04/2024 5:25 AM [facility] RBC 4.93 4.14 - 5.80 10*6/mm3 01/04/2024 5:25 AM [facility] Hemoglobin 14.3 13.0 - 17.7 g/dL 01/04/2024 5:25 AM [facility] Hematocrit 43.7 37.5 - 51.0 % 01/04/2024 5:25 AM [facility] MCV 88.6 79.0 - 97.0 fL 01/04/2024 5:25 AM [facility] MCH 29.0 26.6 - 33.0 pg 01/04/2024 5:25 AM [facility] MCHC 32.7 31.5 - 35.7 g/dL 01/04/2024 5:25 AM [facility] RDW 15.4 12.3 - 15.4 % 01/04/2024 5:25 AM [facility] RDW-SD 49.9 37.0 - 54.0 fl 01/04/2024 5:25 AM [facility] MPV 11.0 6.0 - 12.0 fL 01/04/2024 5:25 AM [facility] Platelets 152 140 - 450 10*3/mm3 01/04/2024 5:25 AM [facility] Blood Venipuncture / Unknown 01/04/2024 4:04 AM EST 01/04/2024 5:18 AM EST Tyrone Vee MD LAB BLOOD ORDERABLES Final Resu lt [facility]
[address] [place] [address], * Magnesium (01/04/2024 4:04 AM EST) [facility] Signature Magnesium 1.9 1.6 - 2.4 mg/dL 01/04/2024 5:57 AM [facility] Blood Venipuncture / Unknown 01/04/2024 4:04 AM EST 01/04/2024 5:18 AM EST Tyrone Vee MD LAB BLOOD ORDERABLES Final Resu lt [facility]
[address] [place] [address], * POC Glucose Once (01/03/2024 5:46 PM EST) Glucose 116 70 - 130 mg/dL 01/03/2024 5:47 PM EST [facility] Blood 01/03/2024 5:46 PM EST 01/03/2024 5:47 PM EST us Hank Hitchcock MD POINT OF CARE TEST ORDERABLE S Final Result [facility]
[address] [place] [address], [place] [phone] * POC Glucose Once (01/03/2024 11:32 AM EST) Glucose 104 70 - 130 mg/dL 01/03/2024 5:21 PM EST [facility] Blood 01/03/2024 11:3 2 AM EST 01/03/2024 5:21 PM EST us Hank Hitchcock MD POINT OF CARE TEST ORDERABLE S Final Result Performing Organization Address City/[facility] [address]/ZIP Co de Phone Number [facility]
[address] [place] [address], [place] [phone] * POC Glucose Once (01/03/2024 5:25 AM EST) Glucose 100 70 - 130 mg/dL 01/03/2024 5:28 AM EST [facility] Blood 01/03/2024 5:25 AM EST 01/03/2024 5:28 AM EST us Hank Hitchcock MD POINT OF CARE TEST ORDERABLE S Final Result Performing Organization Address City/[facility]/ZIP Co de Phone Number [facility]
[address] [place] [address], [place] [phone] * (ABNORMAL) Blood Gas, Venous With Co-Ox (01/03/2024 4:23 AM EST) Site Nurse/Dr Shi 01/03/2024 4:24 AM [facility] THERAP[facility] pH, Venous 7.355 7.310 - 7.410 pH Units 01/03/2024 4:24 AM [facility] THERAPY pCO2, Venous 51.3(H) 41.0 - 51.0 mm Hg 01/03/2024 4:24 AM [facility] Comment:83 Value above refer ence range pO2, Venous 18.5(L) 27.0 - 53.0 mm Hg 01/03/2024 4:24 AM [facility] Comment:84 Value below refer ence range HCO3, Venous 28.6(H) 22.0 - 28.0 mmol/L 01/03/2024 4:24 AM [facility] RES[facility] THERAPY Base Excess, Venous 2.0 -2.0 - 2.0 mmol/L 01/03/2024 4:24 AM [facility] THERAPY Hemoglobin, Blood Gas 15.1 13.5 - 17.5 g/dL 01/03/2024 4:24 AM [facility] THERAPY Oxyhemoglobin Venous 27.7 % 12/13 4:24 AM [facility] TH[facility]AP[facility] Comment:84 Value below refer ence range Methemoglobin Venous 0.5 % 12/13 4:24 AM [facility] THERAPY Carboxyhemoglobin Venous 1.2 % 01/03/2024 4:24 AM [facility] THERAPY CO2 Content 30.2 22 - 33 mmol/L 01/03/2024 4:24 AM [facility] THERAPY Temperature 37.0 01/03/2024 4:24 AM [facility] THERAPY Barometric Pressure for Blood Gas 01/03/2024 4:24 AM [facility] THERAPY Comment:N/A Modality Nasal Cannula 01/03/2024 4:24 AM [facility] THERAPY FIO2 28 % 01/03/2024 4:24 AM [facility] THERAP[facility] Rate 0 Breaths/ minute 01/03/2024 4:24 AM [facility] THERAPY PIP 0 cmH2O 01/03/2024 4:24 AM EST [facility]ERAP[facility] Comment:Meter: [id number] Reducing Salon Attendant: [id number] IPAP 0 01/03/2024 4:24 AM EST [facility] THERAPY EPAP 0 01/03/2024 4:24 AM EST [facility] THERAPY Venous Blood 01/03/2024 4:23 AM EST 01/03/2024 4:23 AM EST us Hank Hitchcock MD LAB BLOOD ORDERABLES Final R esult [facility] THERAPY
[address] * (ABNORMAL) Basic Metabolic Panel (01/03/2024 4:23 AM EST) Glucose 102(H) 65 - 99 mg/dL 01/03/2024 6:15 AM [facility] BUN 20 8 - 23 mg/dL 01/03/2024 6:15 AM [facility] Creatinine 1.13 0.76 - 1.27 mg/dL 01/03/2024 6:15 AM [facility] Sodium 142 136 - 145 mmol/L 01/03/2024 6:15 AM [facility] Potassium 4.9 3.5 - 5.2 mmol/L 01/03/2024 6:15 AM [facility] Chloride 107 98 - 107 mmol/L 01/03/2024 6:15 AM [facility] CO2 26.0 22.0 - 29.0 mmol/L 01/03/2024 6:15 AM [facility] Calcium 8.7 8.6 - 10.5 mg/dL 01/03/2024 6:15 AM [facility] BUN/Creatinine Ratio 17.7 7.0 - 25.0 01/03/2024 6:15 AM [facility] Anion Gap 9.0 5.0 - 15.0 mmol/L 01/03/2024 6:15 AM EST [facility] eGFR 66.9 >60.0 mL/min/1.7 3 01/03/2024 6:15 AM EST [facility] Blood Venipuncture / Unknown 01/03/2024 4:23 AM EST 01/03/2024 5:30 AM EST [facility] - 01/03/2024 6:15 AM EST GFR Normal >60 Chronic Kidney Disease <60 Kidney Failure <15 The GFR formula is only valid for adults with stable renal function between ages 18 and 70. us Tyrone Vee MD LAB BLOOD ORDERABLES Final Resu lt [facility]
[address] [place] [address], * (ABNORMAL) CBC (No Diff) (01/03/2024 4:23 AM EST) WBC 14.22(H) 3.40 - 10.80 10*3/mm3 01/03/2024 5:51 AM EST [facility] RBC 5.04 4.14 - 5.80 10*6/mm3 01/03/2024 5:51 AM [facility] Hemoglobin 14.1 13.0 - 17.7 g/dL 01/03/2024 5:51 AM EST [facility] Hematocrit 44.7 37.5 - 51.0 % 01/03/2024 5:51 AM [facility] MCV 88.7 79.0 - 97.0 fL 01/03/2024 5:51 AM EST [facility] MCH 28.0 26.6 - 33.0 pg 01/03/2024 5:51 AM [facility] MCHC 31.5 31.5 - 35.7 g/dL 01/03/2024 5:51 AM [facility] RDW 15.3 12.3 - 15.4 % 01/03/2024 5:51 AM EST [facility] RDW-SD 49.3 37.0 - 54.0 fl 01/03/2024 5:51 AM EST [facility] MPV 11.0 6.0 - 12.0 fL 01/03/2024 5:51 AM EST [facility] Platelets 160 140 - 450 10*3/mm3 01/03/2024 5:51 AM EST [facility] Blood Venipuncture / Unknown 01/03/2024 4:23 AM EST 01/03/2024 5:40 AM EST us Tyrone Vee MD LAB BLOOD ORDERABLES Final Resu lt Performing Organization Address [facility]/ZIP Co de Phone Number [facility]
[address] [place] [address], * Magnesium (01/03/2024 4:23 AM EST) Magnesium 2.3 1.6 - 2.4 mg/dL 01/03/2024 6:15 AM EST [facility] Blood Venipuncture / Unknown 01/03/2024 4:23 AM EST 01/03/2024 5:30 AM EST us Tyrone Vee MD LAB BLOOD ORDERABLES Final Resu lt Performing Organization Address City/[facility] [address]/ZIP Co de Phone Number [facility]
[address] [place] [address], * POC Glucose Once (01/02/2024 11:35 PM EST) Glucose 121 70 - 130 mg/dL 01/02/2024 11:37 PM EST [facility] Blood 01/02/2024 11:3 5 PM EST 01/02/2024 11:37 PM EST us Hank Hitchcock MD POINT OF CARE TEST ORDERABLE S Final Result Performing Organization Address [facility] [address]/ZIP Co de Phone Number [facility]
[address] [place] [address], [place] [phone] * POC Glucose Once (01/02/2024 5:37 PM EST) Glucose 115 70 - 130 mg/dL 01/02/2024 5:38 PM EST [facility] Blood 01/02/2024 5:37 PM EST 01/02/2024 5:38 PM EST Hank Hitchcock MD POINT OF CARE TEST ORDERABLE S Final Result Performing Organization Address [facility] Co de Phone Number [facility]
[address] [place] [address], [place] [phone] * MRI Brain Without Contrast (01/02/2024 3:04 [...] MD 01/02/2024 3:28 PM EST Workstation ID: [id number] Narrative 01/02/2024 3:28 PM EST MRI ANGIOGRAM HEAD WO CONTRAST, MRI BRAIN WO CONTRAST Date of Exam: 01/02/2024 2:00 PM EST Indication: Stroke, follow up. Comparison: Noncontrast head CT and head CTA from the same date. Technique: ??Routine 3-D jzya-mt-wewspk gradient echo imaging was obtained of the [...] from the same date. Technique: Routine 3-D jxit-oe-mhqnsh gradient echo imaging was obtainedof the head [...] MD 01/02/2024 3:28 PM EST Workstation ID: [id number] us Hank Hitchcock MD IMG MRI ORDERABLES Final Res ult * MRI [...] MD 01/02/2024 3:28 PM EST Workstation ID: [id number] Narrative 01/02/2024 3:28 PM EST MRI ANGIOGRAM HEAD WO CONTRAST, MRI BRAIN WO CONTRAST Date of Exam: 01/02/2024 2:00 PM EST Indication: Stroke, follow up. Comparison: Noncontrast head CT and head CTA from the same date. Technique: ??Routine 3-D qahz-ep-ztugsp gradient echo imaging was obtained of the [...] from the same date. Technique: Routine 3-D ckmc-ci-jfruet gradient echo imaging was obtainedof the head [...] MD 01/02/2024 3:28 PM EST Workstation ID: [id number] Malcom Contreras MD IMG MRI ORDERABLES Final Re sult * POC Glucose Once (01/02/2024 11:41 AM EST) Pathologist [facility] Glucose 124 70 - 130 mg/dL 01/02/2024 11:42 AM EST [facility] Blood 01/02/2024 11:4 1 AM EST 01/02/2024 11:42 AM EST Hank Hitchcock MD POINT OF CARE TEST ORDERABLE S Final Result [facility]
[address] [place] [address], * (ABNORMAL) Phosphorus (01/02/2024 7:31 AM EST) Phosphorus 4.8(H) 2.5 - 4.5 mg/dL 01/02/2024 8:53 AM [facility] Blood Venipuncture / Unknown 01/02/2024 7:31 AM EST 01/02/2024 7:57 AM EST Valdemar Curran [employer] LAB BLOOD ORDERABLES Sarah l Result [facility]
[address] [place] [address], * (ABNORMAL) CBC Auto Differential (01/02/2024 7:31 AM EST) WBC 12.19(H) 3.40 - 10.80 10*3/mm3 01/02/2024 8:13 AM [facility] RBC 5.20 4.14 - 5.80 10*6/mm3 01/02/2024 8:13 AM [facility] Hemoglobin 14.5 13.0 - 17.7 g/dL 01/02/2024 8:13 AM [facility] Hematocrit 45.7 37.5 - 51.0 % 01/02/2024 8:13 AM [facility] MCV 87.9 79.0 - 97.0 fL 01/02/2024 8:13 AM [facility] MCH 27.9 26.6 - 33.0 pg 01/02/2024 8:13 AM [facility] MCHC 31.7 31.5 - 35.7 g/dL 01/02/2024 8:13 AM [facility] RDW 14.8 12.3 - 15.4 % 01/02/2024 8:13 AM [facility] RDW-SD 47.4 37.0 - 54.0 fl 01/02/2024 8:13 AM [facility] MPV 10.8 6.0 - 12.0 fL 01/02/2024 8:13 AM [facility] Platelets 165 140 - 450 10*3/mm3 01/02/2024 8:13 AM [facility] Neutrophil % 91.7(H) 42.7 - 76.0 % 01/02/2024 8:13 AM [facility] Lymphocyte % 5.0(L) 19.6 - 45.3 % 01/02/2024 8:13 AM [facility] Monocyte % 2.7(L) 5.0 - 12.0 % 01/02/2024 8:13 AM [facility] Eosinophil % 0.0(L) 0.3 - 6.2 % 01/02/2024 8:13 AM [facility] Basophil % 0.1 0.0 - 1.5 % 01/02/2024 8:13 AM [facility] Immature Grans % 0.5 0.0 - 0.5 % 01/02/2024 8:13 AM [facility] Neutrophils, Absolute 11.18(H) 1.70 - 7.00 10*3/mm3 01/02/2024 8:13 AM [facility] Lymphocytes, Absolute 0.61(L) 0.70 - 3.10 10*3/mm3 01/02/2024 8:13 AM [facility] Monocytes, Absolute 0.33 0.10 - 0.90 10*3/mm3 01/02/2024 8:13 AM [facility] Eosinophils, Absolute 0.00 0.00 - 0.40 10*3/mm3 01/02/2024 8:13 AM [facility] Basophils, Absolute 0.01 0.00 - 0.20 10*3/mm3 01/02/2024 8:13 AM [facility] Immature Grans, Absolute 0.06(H) 0.00 - 0.05 10*3/mm3 01/02/2024 8:13 AM [facility] nRBC 0.0 0.0 - 0.2 /100 WBC 01/02/2024 8:13 AM [facility] Blood Venipuncture / Unknown 01/02/2024 7:31 AM EST 01/02/2024 7:57 AM EST Hank Hitchcock MD LAB BLOOD ORDERABLES Final R esult Performing Organization Address [facility] [address]/ZIP Co de Phone Number [facility]
[address] [place] [address], * (ABNORMAL) Magnesium (01/02/2024 7:31 AM EST) Pathologist [facility] Magnesium 2.5(H) 1.6 - 2.4 mg/dL 01/02/2024 8:53 AM EST [facility] Blood Venipuncture / Unknown 01/02/2024 7:31 AM EST 01/02/2024 7:57 AM EST Tyrone Vee MD LAB BLOOD ORDERABLES Final Resu lt Performing Organization Address [facility] [address]/[place] de Phone Number [facility]
[address] [place] [address], * (ABNORMAL) Basic Metabolic Panel (01/02/2024 7:31 AM EST) Pathologist [facility] Glucose 121(H) 65 - 99 mg/dL 01/02/2024 8:53 AM EST [facility] BUN 15 8 - 23 mg/dL 01/02/2024 8:53 AM EST [facility] Creatinine 1.38(H) 0.76 - 1.27 mg/dL 01/02/2024 8:53 AM EST [facility] Sodium 144 136 - 145 mmol/L 01/02/2024 8:53 AM EST [facility] Potassium 4.5 3.5 - 5.2 mmol/L 01/02/2024 8:53 AM EST [facility] Comment:Slight hemolysis det ected by analyzer. Result may be falsely elevated. Chloride 109(H) 98 - 107 mmol/L 01/02/2024 8:53 AM EST [facility] CO2 19.0(L) 22.0 - 29.0 mmol/L 01/02/2024 8:53 AM EST [facility] Calcium 8.3(L) 8.6 - 10.5 mg/dL 01/02/2024 8:53 AM EST [facility] BUN/Creatinine Ratio 10.9 7.0 - 25.0 01/02/2024 8:53 AM EST [facility] Anion Gap 16.0(H) 5.0 - 15.0 mmol/L 01/02/2024 8:53 AM EST [facility] eGFR 52.7(L) >60.0 mL/min/1.7 3 01/02/2024 8:53 AM EST [facility] Blood Venipuncture / Unknown 01/02/2024 7:31 AM EST 01/02/2024 7:57 AM EST Narrative [facility] - 01/02/2024 8:53 AM EST GFR Normal >60 Chronic Kidney Disease <60 Kidney Failure <15 The GFR formula is only valid for adults with stable renal function between ages 18 and 70. us Hank Hitchcock MD LAB BLOOD ORDERABLES Final R esult [facility]
[address] [place] [address], * POC Glucose Once (01/02/2024 4:59 AM EST) Glucose 129 70 - 130 mg/dL 01/02/2024 5:01 AM EST [facility] Blood 01/02/2024 4:59 AM EST 01/02/2024 5:01 AM EST us Hank Hitchcock MD POINT OF CARE TEST ORDERABLE S Final Result [facility]
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 Otherwise normal CT angiogram of the head as above. Electronically Signed: Ivan Jon MD 01/02/2024 10:02 AM EST Workstation ID: [id number] Narrative 01/02/2024 10:[address] ANGIOGRAM [...] MD 01/02/2024 10:02 AM EST Workstation ID: [id number] Arely Duffy Corriemaile ROSEMARY IMG CT ORDERABLES Final Result * CT Head [...] MD 01/02/2024 8:25 AM EST Workstation ID: [id number] Narrative 01/02/2024 8:[address] HEAD [...] MD 01/02/2024 8:25 AM EST Workstation ID: [id number] us Hank Hitchcock MD IM CT ORDERABLES Final Resu lt * (ABNORMAL) POC Glucose Once (01/02/2024 12:14 AM EST) Glucose 177(H) 70 - 130 mg/dL 01/02/2024 12:16 AM EST [facility] Blood 01/02/2024 12:1 4 AM EST 01/02/2024 12:16 AM EST Hank Hitchcock MD POINT OF CARE TEST ORDERABLE S Final Result Performing Organization Address [facility] Co de Phone Number [facility]
[address] [place] [address], * EEG AWAKE OR ASLEEP PORTABLE (01/01/2024 7:04 PM EST) Impressions NEUROLOGY - 01/01/2024 7:32 PM EST Diffuse cerebral dysfunction of moderate degree, nonspecific No ongoing seizures are seen This report is transcribed using the [employer] dictation system. ?? Narrative NEUROLOGY - 01/01/2024 [...] focal features or epileptiform activity are seen us Hank Hitchcock MD NEUROLOGY ORDERABLES Final R esult Performing Organization Address [facility] [address] [facility]/ZIP Co de Phone Number NEUROLOGY * (ABNORMAL) POC Glucose Once (01/01/2024 6:13 PM EST) Glucose 252(H) 70 - 130 mg/dL 01/01/2024 6:15 PM EST [facility] Blood 01/01/2024 6:13 PM EST 01/01/2024 6:15 PM EST Hank Hitchcock MD POINT OF CARE TEST ORDERABLE S Final Result [facility]
[address] [place] [address], * CT Head Without Contrast (01/01/2024 5:14 [...] MD 01/01/2024 5:25 PM EST Workstation ID: [id number] Narrative 01/01/2024 5:[address] HEAD [...] MD 01/01/2024 5:25 PM EST Workstation ID: [id number] us Tyrone Vee MD [facility] CT ORDERABLES Final Result * (ABNORMAL) Basic Metabolic Panel (01/01/2024 3:39 PM EST) Glucose 202(H) 65 - 99 mg/dL 01/01/2024 4:18 PM EST [facility] BUN 19 8 - 23 mg/dL 01/01/2024 4:18 PM EST [facility] Creatinine 1.43(H) 0.76 - 1.27 mg/dL 01/01/2024 4:18 PM EST [facility] Sodium 140 136 - 145 mmol/L 01/01/2024 4:18 PM EST [facility] Potassium 4.0 3.5 - 5.2 mmol/L 01/01/2024 4:18 PM EST [facility] Comment:Slight hemolysis det ected by analyzer. Result may be falsely elevated. Chloride 103 98 - 107 mmol/L 01/01/2024 4:18 PM EST [facility] CO2 13.0(L) 22.0 - 29.0 mmol/L 01/01/2024 4:18 PM EST [facility] Calcium 8.6 8.6 - 10.5 mg/dL 01/01/2024 4:18 PM [facility] BUN/Creatinine Ratio 13.3 7.0 - 25.0 01/01/2024 4:18 PM EST [facility] Anion Gap 24.0(H) 5.0 - 15.0 mmol/L 01/01/2024 4:18 PM [facility] eGFR 50.5(L) >60.0 mL/min/1.7 3 01/01/2024 4:18 PM [facility] Blood Structure of left upper limb / Unknown Line / Unknown 01/01/2024 3:39 PM EST 01/01/2024 3:53 PM EST [facility] - 01/01/2024 4:18 PM EST GFR Normal >60 Chronic Kidney Disease <60 Kidney Failure <15 The GFR formula is only valid for adults with stable renal function between ages 18 and 70. us Kenna Manley PA-C LAB BLOOD ORDERABLES Final Result [facility]
[address] [place] [address], * (ABNORMAL) POC Glucose Once (01/01/2024 3:31 PM EST) Glucose 167(H) 70 - 130 mg/dL 01/01/2024 3:33 PM EST [facility] Blood 01/01/2024 3:31 PM EST 01/01/2024 3:33 PM EST Result [facility] Hank Hitchcock MD POINT OF CARE TEST ORDERABLE S Final Result [facility]
[address] [place] [address], [place] [phone] * FL C Arm During Surgery (01/01/2024 2:50 PM EST) Narrative SYSTEMGENERATED, DOCUMENTATION - 01/01/2024 2:51 PM EST This procedure was auto-finalized with no dictation required. Hank Hitchcock MD IMG FLUOROSCOPY ORDERABLES F inal Result * SCANNED - TELEMETRY (01/01/2024) [facility] Onbase ECG ORDERABLES Final Result * SCANNED - TELEMETRY (01/01/2024) [facility] ECG ORDERABLES Final Result documented in this encounter Visit Diagnoses Diagnosis Spinal stenosis of lumbar region with neurogenic claudication- Primary Spinal stenosis of lumbar region with neurogenic claudication TUNDE (acute kidney injury) Seizure Other convulsions documented in this encounter Admitting Diagnoses Diagnosis [...] Daily, First dose on Sat01/01/24 at 1715, ([facility]) Take with food if GI upset [...] Given 01/04/2024 9:32 PM EST 40 mg bisacodyl (DULCOLAX) suppository 10 mg 10 mg, Rectal, Once, On Sat01/06/24 at 0915, For 1 dose, Hold for diarrhea Given 01/06/2024 9:16 AM EST 10 mg ceFAZolin 2000 mg IVPB in 100 mL NS (MBP) 2,000 mg, Intravenous, Administer over 30 Minutes, Every 8 Hours, First dose on Sat01/01/24 at 2100, For 2 doses, Time first dose from pre-op dose. Caution: Look alike/sound alike drug alert, Indications: Surgical ProphylaxisIndications:Surgical Prophylaxis Given 01/02/2024 5:34 AM EST 2,000 mg Given 01/01/2024 8:39 PM EST 2,000 mg colchicine tablet 0.6 mg 0.6 mg, Oral, Once, On Sat01/05/24 at 1245, For 1 dose, Group 2 (Motley) Hazardous Drug - Reproductive Risk Only - See Handling Guide Given 01/05/2024 12:07 PM EST 0.6 mg diazePAM (VALIUM) injection 2.5 mg 2.5 mg, Intravenous, Every 4 Hours PRN, Anxiety, Starting on Sat01/02/24 at 1112, For 105 hours, {KHALIF} May give each 5 mg IV push over 1 minute. May be injected through infusion tubing using port closest to vein insertion. Do not mix or dilute with other solutions. Given 01/02/2024 1:12 PM EST 2.5 mg diazePAM (VALIUM) injection 5 mg 5 mg, Intravenous, Every 4 Hours PRN, Anxiety, Starting on Sat01/01/24 at 2105, For 5 days, {KHALIF} May give each 5 mg IV push over 1 minute. May be injected through infusion tubing using port closest to vein insertion. Do not mix or dilute with other solutions. Given 01/02/2024 7:53 AM EST 5 mg Given 01/02/2024 2:28 AM EST 5 mg Given 01/01/2024 9:26 PM EST 5 mg diazePAM (VALIUM) injection 5 mg 5 mg, Intravenous, Every 1 Hour PRN, Anxiety, Starting on Sat01/02/24 at 1357, For 2 doses, {KHALIF} May give each 5 mg IV push over 1 minute. May be injected through infusion tubing using port closest to vein insertion. Do not mix or dilute with other solutions. Given 01/02/2024 2:20 PM EST 5 mg diphenhydrAMINE (BENADRYL) injection 12.5 mg 12.5 mg, Intravenous, Once, On Sat01/07/24 at 1315, For 1 dose, 25 mg may be given IV push over less than 1 minute. Caution: Look alike/sound alike drug alert. This med may be ordered in other forms and routes. Before giving verify the last time the drug was given by any route/form. Given 01/07/2024 1:15 PM EST 12.5 mg docusate sodium (COLACE) capsule 100 mg 100 mg, Oral, 2 Times Daily PRN, Constipation, Starting on Sat01/01/24 at 1626, Swallow whole. Do not open, crush, or chew capsule. Given 01/05/2024 9:00 AM EST 100 mg Enoxaparin Sodium (LOVENOX) syringe 40 mg 40 mg, Subcutaneous, Daily, First dose on [place] 01/02/24 at 2100, Give subcutaneous in abdomen only. Do not massage site after injection., Indications: VTE ProphylaxisIndications:VTE Prophylaxis Given 01/06/2024 8:19 PM EST 40 mg Right Lower Abdomen Given 01/05/2024 8:38 PM EST 40 mg Ri ght Upper Abdomen Given 01/04/2024 9:32 PM EST 40 mg Ri ght Lower Abdomen HYDROcodone-acetaminophen (NORCO) 5-325 MG per tablet 1 [...] Given 01/05/2024 2:22 PM EST 1 tablet HYDROmorphone (DILAUDID) injection 0.5 mg 0.5 mg, Intravenous, Every 2 Hours PRN, [...] Pain Score of 7-10, CPOT 5-8 Given 01/03/2024 8:10 AM EST 0.5 mg Given 01/03/2024 2:17 AM EST 0.5 mg iopamidol (ISOVUE-370) 76 % injection 100 mL 100 mL, Intravenous, Once in Imaging, On Sat01/02/24 at 0415, For 1 dose Given 01/02/2024 3:16 AM EST 75 mL levETIRAcetam (KEPPRA) 3,000 mg in sodium chloride 0.9 % 250 mL IVPB 3,000 mg, Intravenous, at 1,000 mL/hr, Administer over 15 Minutes, Once, On Sat01/01/24 at 1730, For 1 dose, Caution: Look alike/sound alike drug alert Given 01/01/2024 5:41 PM EST 3,000 mg 1000 mL/hr levETIRAcetam (KEPPRA) injection 250 mg 250 mg, Intravenous, Every 12 Hours, First dose (after last modification) on [place] 01/02/24 at 1700, For 17 doses, Caution: Look alike/sound alike drug alert. *When giving as IV push: Do not exceed 1000 mg/min.* Given 01/06/2024 5:32 AM EST 250 mg Given 01/05/2024 5:19 PM EST 250 mg Given 01/05/2024 4:59 AM EST 250 mg levETIRAcetam (KEPPRA) injection 500 mg 500 mg, Intravenous, Every 12 Hours, First dose (after last modification) on [place] 01/02/24 at 0500, For 5 days, Caution: Look alike/sound alike drug alert. *When giving as IV push: Do not exceed 1000 mg/min.* Given 01/02/2024 5:34 AM EST 500 mg levETIRAcetam (KEPPRA) tablet 500 mg 500 mg, Oral, Every 12 Hours Scheduled, First dose on Sat01/06/24 at 2100, First dose at 2100 For tube route administration, disperse crushed tablets in 10 mL of water, shake for 5 minutes to dissolve, and administer immediately via enteral feeding tube. Caution: Look alike/sound alike drug alert. Given 01/07/2024 8:[address] 500 mg Given 01/06/2024 8:19 PM EST 500 mg midazolam (VERSED) injection 1 mg 1 mg, Intravenous, Once As Needed, Anxiety, Sedation, MRI if needed, Starting on [place] 01/02/24 at 1357, For 1 dose, {KHALIF} Given 01/02/2024 2:37 PM EST 1 mg midazolam (VERSED) injection 2 mg 2 mg, Intravenous, Every 2 Hours PRN, seizures > 3 minutes, Starting on Sat01/01/24 at 1811, {KHALIF} Given 01/01/2024 6:49 PM EST 2 mg niCARdipine (CARDENE) 25mg in 250mL NS infusion 5-15 mg/hr (50-150 mL/hr), Intravenous, Titrated, Starting on Sat01/01/24 at 1915, Initiate infusion at 5 mg/hr and titrate up or down by 2.5 - 5 mg/hr every 15 minutes to use the lowest dose possible to maintain SBP less than 140 mm Hg. Maximum dose = 15 mg/hr. Hold infusion for SBP less than 100 mm Hg. Contact provider if unable to maintain SBP Less Than 140 mm Hg on maximum dose. Once SBP target achieved obtain vitals a minimum of every 30 minutes. Administer as a slow continuous infusion via central line or through a large peripheral vein. Peripheral venous irritation may be minimized by changing the site of infusion every 12 hours. Nicardipine 0.2mg/mL concentration must be infused via central line ONLY. Caution: Look alike/sound alike drug alert Currently Infusing 01/01/2024 8:38 PM EST 2.5 mg/hr 25 mL/hr New Bag 01/01/2024 6:31 PM EST 5 mg/hr 50 mL/hr ondansetron (ZOFRAN) injection 4 mg 4 mg, [...] tablet 40 mg 40 mg, Oral, Every Silhouette Artist, First dose on Sat01/07/24 at 0600, Swallow whole; do not crush, split, or chew. Given 01/07/2024 6:08 AM EST 40 mg pantoprazole (PROTONIX) injection 40 mg 40 mg, Intravenous, Every Silhouette Artist, First dose on Sat01/02/24 at 0600, Dilute with 10 mL of 0.9% NaCl and give IV push over 2 minutes., Indications: Gastroesophageal Reflux DiseaseIndications:Gastroesophageal Reflux Disease Given 01/06/2024 5:29 AM EST 40 mg Given 01/05/2024 4:59 AM EST 40 mg Given 01/04/2024 4:30 AM EST 40 mg polyethylene glycol (MIRALAX) packet 17 g 17 g, Oral, Daily PRN, Constipation, Starting on Sat01/01/24 at 1626, Dissolve in water Use 4-8 ounces of water, tea, or juice for each 17 gram dose., Indications: ConstipationIndications:Constipation Given 01/07/2024 8:16 AM EST 17 g Given 01/06/2024 9:17 AM EST 17 g Given 01/05/2024 9:01 AM EST 17 g potassium chloride (K-DUR,KLOR-CON) CR tablet 40 mEq 40 mEq, Oral, Every 4 Hours, First dose on Sat01/06/24 at 0930, For 2 doses, Do not crush or chew the capsules or tablets. The drug may not work as designed if the capsule or tablet is crushed or chewed. Swallow whole. Take with food. Given 01/06/2024 1:49 PM EST 40 mEq Given 01/06/2024 9:16 AM EST 40 mEq Potassium Replacement - Follow Nurse / BPA Driven Protocol Open Order & Select S Electrolyte Replacement Protocol Algorithm to View Details predniSONE (DELTASONE) tablet 40 mg 40 mg, Oral, Once, On Sat01/06/24 at 1000, For 1 dose, Take with food. Given 01/06/2024 9:45 AM EST 40 mg predniSONE (DELTASONE) tablet 40 mg 40 mg, [...] 9:16 AM EST 1 tablet sodium chloride 0.9 % flush 10 mL [...] Given 01/06/2024 9:17 AM EST 3 mL sodium chloride 0.9 % infusion 50 mL/hr, Intravenous, Continuous, Starting on Sat01/01/24 at 1132 New Bag 01/03/2024 11:46 AM EST 50 mL/hr 50 mL/hr New Bag 01/02/2024 1:22 PM EST 50 mL/hr 50 mL/hr Currently Infusing 01/01/2024 4:25 PM EST 50 mL/hr 50 mL /hr documented in this encounter Active and Recently Administered Medications Times are shown in EST. Scheduled Medication Order 01/05/2024 01/06/2024 01/07/2024 allopurinol (ZYLOPRIM) tablet 100 mg 100 mg, Oral, Daily, First dose on Sat01/01/24 at 1715, ([facility]) Take with food if GI upset occurs. 0900 (Given - Provider: Radha Rogers RN) 0917 (Given - Provider: Lorna Phelan, RN) 0816 (Given - Provider: Lorna Phelan, RN) atorvastatin (LIPITOR) tablet 40 mg 40 mg, Oral, Daily, First dose on Sat01/01/24 at 2100, Avoid grapefruit juice. 2036 (Given - Provider: Tonia Stephens, RN) 2018 (Given - Provider: Tonia Stephens, RN) bisacodyl (DULCOLAX) suppository 10 mg (COMPLETED) 10 mg, Rectal, Once, On Sat01/06/24 at 0915, For 1 dose, Hold for diarrhea 915 (Given - Provider: Lorna Phelan, TRUDI) colchicine tablet 0.6 mg (COMPLETED) 0.6 mg, Oral, Once, On Sat01/05/24 at 1245, For 1 dose, Group 2 (Motley) Hazardous Drug - Reproductive Risk Only - See Handling Guide 1207 (Given - Provider: Radha Rogers, RN) diphenhydrAMINE (BENADRYL) injection 12.5 mg (COMPLETED) 12.5 mg, Intravenous, Once, On Sat01/07/24 at 1315, For 1 dose, 25 mg may be given IV push over less than 1 minute. Caution: Look alike/sound alike drug alert. This med may be ordered in other forms and routes. Before giving verify the last time the drug was given by any route/form. 1315 (Given - Provider: Lorna Phlean, TRUDI) Enoxaparin Sodium (LOVENOX) syringe 40 mg 40 mg, Subcutaneous, Daily, First dose on Sat01/02/24 at 2100, Give subcutaneous in abdomen only. Do not massage site after injection., Indications: VTE Prophylaxis 2037 (Given - Provider: Tonia Stephens, RN) 2018 (Given - Provider: Tonia Stephens, RN) levETIRAcetam (KEPPRA) injection 250 mg (CANCELED) 250 mg, Intravenous, Every 12 Hours, First dose (after last modification) on Sat01/02/24 at 1700, For 17 doses, Caution: Look alike/sound alike drug alert. *When giving as IV push: Do not exceed 1000 mg/min.* 0459 (Given - Provider: Marce Prado RN)1719 (Given - Provider: Radha Rogers RN) 0532 (Given - Provider: Tonia Stephens, TRUDI) levETIRAcetam (KEPPRA) tablet 500 mg 500 mg, [...] Stephens RN) 0816 (Given - Provider: Lorna Phelan, TRUDI) pantoprazole (PROTONIX) EC tablet 40 mg 40 mg, Oral, Every Silhouette Artist, First dose on Sat01/07/24 at 0600, Swallow whole; do not crush, split, or chew. 0608 (Given - Provider: Tonia Stephens, TRUDI) pantoprazole (PROTONIX) injection 40 mg (CANCELED) 40 mg, Intravenous, Every Silhouette Artist, First dose on Sat01/02/24 at 0600, Dilute with 10 mL of 0.9% NaCl and give IV push over 2 minutes., Indications: Gastroesophageal Reflux Disease 0459 (Given - Provider: Marce Praod RN - Comment: [facility])0600 (Canceled Entry - Provider: Marce Prado RN) [...] with food. 0916 (Given - Provider: Lorna Phelan, TRUDI)1349 (Given - Provider: Lorna Phelan, TRUDI) predniSONE (DELTASONE) tablet 40 mg (COMPLETED) 40 mg, Oral, Once, On Sat01/06/24 at 1000, For 1 dose, Take with food. 0945 (Given - Provider: Lorna Phelan, RN) predniSONE (DELTASONE) tablet 40 mg 40 mg, Oral, Daily With Breakfast, First dose on Sat01/07/24 at 1215, For 2 doses, Take with food. 1212 (Given - Provider: Lorna Phelan, RN) probenecid (BENEMID) tablet 250 mg 250 mg, Oral, Daily, First dose on Sat01/01/24 at 1715 0900 (Given - Provider: Radha Rogers, RN) 0915 (Given - Provider: Lorna Phelan, RN) 0816 (Given - Provider: Lorna Phelan, RN) sodium chloride 0.9 % flush 3 mL 3 mL, Intravenous, Every 12 Hours Scheduled, First dose on Sat01/01/24 at 2100 0901 (Given - Provider: Radha Rogers, RN)2037 (Given - Provider: Tonia Stephens, RN) 0917 (Given - Provider: Lorna Phelan, RN)2018 (Given - Provider: Tonia Stephens, RN) 0817 (Given - Provider: Lorna Phelan, RN) PRN Medication Order 01/05/2024 01/06/2024 01/07/2024 acetaminophen [...] CPOT 5-8 1207 (Given - Provider: Radha Rogers, TRUDI) 0917 (Given - Provider: Lorna Phelan, TRUDI) 0616 (Given - Provider: Tonia Stephens, TRUDI) docusate sodium (COLACE) capsule 100 mg 100 [...] Indications: Constipation 0901 (Given - Provider: Radha Rogers, TRUDI) 0917 (Given - Provider: Lorna Phelan, TRUDI) 0816 (Given - Provider: Lorna Phelan, RN) Potassium Replacement - Follow Nurse / BPA Driven Protocol Open Order & Select [facility] Electrolyte Replacement Protocol Algorithm to View Details sennosides-docusate (PERICOLACE) 8.6-50 MG per tablet 1 tablet 1 tablet, Oral, Nightly PRN, Constipation, Starting on Sat01/01/24 at 1626 0916 (Given - Provider: Lorna Phelan RN) 0816 (Given - Provider: Lorna Phelan, TRUDI) sodium chloride 0.9 % flush 10 mL 10 mL, Intravenous, As Needed, Line Care, Starting on Sat01/01/24 at 1626 0530 (Given - Provider: Tonia Stephens, TRUDI)0534 (Given - Provider: Tonia Stephens, TRUDI)0917 (Given - Provider: Lorna Phelan, RN) sodium chloride 0.9 % infusion 40 [...] ineffective. 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
--- OUTSIDE RECORDS SUMMARY | 2024-09-29 14:38 | XMS_ITS | Encounter Summary ---
[facility] Address [address] [place] [address] Care Team Providers Care Eligibility Supervisor Name Role Phone Cathy Blancas Brennon GRIP Primary Care Provider [phone] Reason for Visit * Reason Comments Follow-up With Echo Encounter Details Date Type Department Care Team (Late st Contact Info) Description 01/07/2023 9:30 AM EST Office Visit [facility] [address] [place] [address] Carleen Dave APRN [address] [place], [place] [id number] Atrial fibrillation, unspecified type; Hypercholesterolemia; Coronary artery disease involving [place] heart without angina pectoris, unspecified vessel or lesion type; Essential hypertension Social History Tobacco Use Types Packs/Day Years Used Date Smoking Tobacco: Former Cigarettes Tobacco Cessation:Counseling Given: Not Answered Alcohol Use Standard Drinks/Week Comments Yes 0 (1 standard drink = 0.6 oz pur e alcohol) BEER PER WK Sex and Gender Information Value Date Recorded Sex Assigned at Not on file Legal Sex Male 1:15 PM EDT Gender Identity Not on file Sexual Orientation Not on file documented as of this encounter Last Filed Vital Signs Vital Sign Reading Time Taken Comments Blood Pressure 140/70 01/07/2023 10:02 AM EST Pulse 89 01/07/2023 10:02 AM EST Temperature - - Respiratory Rate - - Oxygen Saturation 98% 01/07/2023 10:02 AM EST Inhaled Oxygen Concentration - - Weight 98.9 kg (218 lb) 01/07/2023 10:02 AM EST Height 180.3 cm (5' 11 ) 01/07/2023 10:02 AM EST Body Mass Index 30.4 01/07/2023 10:02 AM EST documented in this encounter Progress Notes * Carleen Dave APRN - 01/07/2023 11:04 AM ESTAssociated Problem(s): Abnormal echocardiogram Updated echo today. We will do annual echoes as patient reports we can do them as often as every 6 months but he has no intention of having another surgery at his age. * Carleen Dave APRN - 01/07/2023 11:04 AM ESTAssociated Problem(s): Essential hypertension Not on meds due to hypotension with treatment. Blood pressure 125/88 at home today. * Carleen Dave APRN - 01/07/2023 11:03 AM ESTAssociated Problem(s): Coronary artery disease involving [place] heart without angina pectoris Very mild, on statin, cath November 2018 . * Carleen Dave APRN - 01/07/2023 11:03 AM ESTAssociated Problem(s): Hypercholesterolemia On Livalo refill and obtain labs from PCP * Carleen Dave APRN - 01/07/2023 11:02 AM ESTAssociated Problem(s): Atrial fibrillation Updated EKG today. And chronic A-fib. Euvolemic. On Xarelto and rate controlled. Declines PSG. * Carleen Dave APRN - 01/07/2023 9:30 AM ESTAssociated Order(s): ECG 12 Lead Pre-Procedure Diagnose(s): Atrial fibrillation, unspecified type; Essential hypertension Post-Procedure Diagnose(s): Atrial fibrillation, unspecified type; Essential hypertension Images from the original note were not included. [facility] Provider Note Date: 01/07/2023 Name: Santo Terrell : 1945 PCP: Cathy Blancas APRN Chief Complaint Patient presents with ??? Follow-up With Echo Subjective History of Present Illness Santo Terrell is a 77 y.o. male who presents today for follow-up on hypertension, A-fib, CAD, mitral regurgitation, and HPL. He denies any chest pain, shortness of air, edema, palpitations, dizziness, or syncope. 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 In the past he has become hypotensive with too much medication and wants to be careful. Reports his blood pressure at home this morning was 125/88. Echo July 04, 2022 with mitral regurg that went from mild to moderate. Patient restates we can repeat echo in 6 months but he has no intention of have another surgery athis age. Today we updated echo. Discussed results with patient. [place] only daughter's [place] in a couple weeks. He is requesting something cheaper than Xarelto as it is $480 a month. He declined switching to Coumadin related to PT/INR checks. We will consider repeating echo in 1 year. EKG today rate controlled but in A-fib. This is chronic for him. He declines PSG despite atrial fibrillation. Allergies Allergen Reactions ??? Triple Antibiotic W/Hydrocortisone [[id number]-Hc] Rash Current Outpatient Medications: ??? betamethasone dipropionate 0.05 % cream, Apply 1 application topically to the appropriate area as directed Daily., Disp: 50 g, Rfl: 1 ??? colchicine 0.6 MG tablet, TAKE 1 TABLET BY MOUTH 2 TIMES A DAY TO REDUCE GOUT ATTACKS, Disp: 60tablet, Rfl: 0 ??? furosemide (LASIX) 20 MG tablet, Take 1 tablet by mouth Daily., Disp: 90 tablet, Rfl: 1 ??? Livalo 4 MG tablet, Take 1 tablet by mouth Every Night., Disp: 90 tablet, Rfl: 1 ??? omeprazole (priLOSEC) 20 MG capsule, Take 20 mg by mouth Daily., Disp: , Rfl: ??? potassium chloride (MICRO-K) 10 MEQ CR capsule, Take 1 capsule by mouth Daily., Disp: 90 capsule, Rfl: 1 ??? Xarelto 20 MG tablet, Take 1 tablet by mouth Daily., Disp: 90 tablet, Rfl: 1 Past Medical History: Diagnosis Date ??? Allergies PHOLCODINE TRIPLE ANTIBIOTIC ??? Chronic atrial fibrillation (HCC) ??? Chronic atrial fibrillation, unspecified (HCC) ??? CKD (chronic kidney disease), stage III (HCC) ??? GERD without esophagitis ??? Hypercholesterolemia ??? Hypertension ??? Mitral regurgitation 07/04/2022 MODERATE ??? Nonrheumatic mitral (valve) insufficiency ??? Paroxysmal atrial fibrillation (HCC) ??? SOB (shortness of breath) Past Surgical History: Procedure Laterality Date ??? APPENDECTOMY ??? BACK SURGERY ??? CHOLECYSTECTOMY ??? SHOULDER SURGERY Left Family History Problem Relation Age of Onset ??? Arthritis Mother ??? Stroke Father ??? Diabetes Sister ??? Cancer Brother Social History Socioeconomic History ??? Marital status: Single Tobacco Use ??? Smoking status: Former Types: Cigarettes Substance and Sexual Activity ??? Alcohol use: Yes Comment: BEER PER WK ??? Drug use: Never Objective Vital Signs: BP 140/70 (BP Location: Left arm) Pulse 89 Ht 180.3 cm (71 ) Wt 98.9 kg (218 lb) SpO2 98% BMI 30.40 kg/m?? Estimated body mass index is 30.4 kg/m?? as calculated from the following: Height as of this encounter: 180.3 cm (71 ). Weight as of this encounter: 98.9 kg (218 lb). Physical Exam Constitutional: Appearance: Normal appearance. Eyes: Pupils: Pupils are equal, round, and reactive to light. Neck: Vascular: No carotid bruit. Cardiovascular: Rate and Rhythm: Normal rate. Rhythm irregular. Pulses: Normal pulses. Heart sounds: Normal heart sounds. Pulmonary: Effort: Pulmonary effort is normal. Breath sounds: Normal breath sounds. Musculoskeletal: General: Normal range of motion. Right lower leg: No edema. Left lower leg: No edema. Skin: General: Skin is warm and dry. Neurological: Mental Status: He is alert and oriented to person, place, and time. Gait: Gait is intact. Psychiatric: Attention and Perception: Attention normal. Mood and Affect: Mood normal. ECG 12 Lead Date/Time: 01/07/2023 11:06 AM Performed by: Carleen Dave APRN Authorized by: Carleen Dave APRN Comparison: compared with previous ECG from 01/03/2022 Similar to previous ECG Rhythm: atrial fibrillation Rate: normal Clinical impression: abnormal EKG Comments: Chronic A-fib rate controlled Assessment and Plan Diagnoses and all orders for this visit: 1. Atrial fibrillation, unspecified type (HCC) Assessment & Plan: Updated EKG today. And chronic A-fib. Euvolemic. On Xarelto and rate controlled. Declines PSG. Orders: - Xarelto 20 MG tablet; Take 1 tablet by mouth Daily. Dispense: 90 tablet; Refill: 1 - furosemide (LASIX) 20 MG tablet; Take 1 tablet by mouth Daily. Dispense: 90 tablet; Refill: 1 - potassium chloride (MICRO-K) 10 MEQ CR capsule; Take 1 capsule by mouth Daily. Dispense: 90 capsule; Refill: 1 - ECG 12 Lead 2. Hypercholesterolemia Assessment & Plan: On Livalo refill and obtain labs from PCP Orders: - Livalo 4 MG tablet; Take 1 tablet by mouth Every Night. Dispense: 90 tablet; Refill: 1 3. Coronary artery disease involving [place] heart without angina pectoris, unspecified vessel or lesion type Assessment & Plan: Very mild, on statin, cath November 2018 . 4. Essential hypertension Assessment & Plan: Not on meds due to hypotension with treatment. Blood pressure 125/88 at home today. Orders: - ECG 12 Lead Recommendations: ER if symptoms increase, Limitations of stress testing for definitive diagnosis reviewed, Sleep hygiene discussed, Limit salt and Elevate legs Follow Up Return in about 6 months (around 07/07/2023). Patient was given instructions and counseling regarding his condition or for health maintenance advice. Please see specific information pulled into the AVS if appropriate. documented in this encounter Plan of Treatment Upcoming Encounters Date Type Department Care Team (Late st Contact Info) Description 12/15/2024 8:30 AM EST Office Visit [facility] [address] [place] [id number] Hannah Martinez APRN [address] [place] [id number] 02/04/2025 9:00 AM EDT Office Visit [facility] [address] [facility] [address] [place] [address] Britany Braxton MD [address] [facility] [address] [place] [address] documented as of this encounter Procedures Procedure Name Priority Date/Time Associated Diagnosis Comments ECG 12-LEAD Routine 01/07/2023 Atrial fibrillation, unspecified type Essential hypertension documented in this encounter Results * ECG 12-LEAD (01/07/2023) Narrative [facility] ECG - 01/07/2023 Carleen Dave APRN ? 01/07/2023 11:08 AM ECG 12 Lead Date/Time: 01/07/2023 11:06 AM Performed by: Carleen Dave APRN Authorized by: Carleen Dave APRN Comparison: compared with previous ECG from 01/03/2022 Similar to previous ECG Rhythm: atrial fibrillation Rate: normal Clinical impression: abnormal EKG Comments: Chronic A-fib rate controlled Procedure Note Carleen Dave APRN - 01/07/2023 9:30 AM EST Images from the original note were not included. [facility] Provider Note Date: 01/07/2023 Name: Santo Terrell : 1945 PCP: Cathy Blancas APRN Chief Complaint Patient presents with ? ? Follow-up With Echo Subjective History of Present Illness Santo Terrell is a 77 y.o. male who presents today for follow-up onhypertension, A-fib, CAD, mitral regurgitation, and HPL. 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 In thepast he has become hypotensive with too much medication and wants to becareful. Reports his blood pressure at home this morning was 125/88.Echo July 04, 2022 with mitral regurg that went from mild to moderate.Patient restates we can repeat echo in 6 months but he has no intention ofhave another surgery at his age. Today we updated echo. Discussedresults with patient. He plans to go out west for his only daughter'jim in a couple weeks. He is requesting something cheaper thanXarelto as it is $480 a month. He declined switching to Coumadin relatedto PT/INR checks. We will consider repeating echo in 1 year. EKG todayrate controlled but in A-fib. This is chronic for him. He declines PSG despite atrial fibrillation. Allergies Allergen Reactions ? ? Triple Antibiotic W/Hydrocortisone [[id number]-Hc] Rash Current Outpatient Medications: ? ? betamethasone dipropionate 0.05 % cream, Apply 1 application topicallyto the appropriate area as directed Daily., Disp: 50 g, Rfl: 1 ? ? colchicine 0.6 MG tablet, TAKE 1 TABLET BY MOUTH 2 TIMES A DAY TOREDUCE GOUT ATTACKS, Disp: 60 tablet, Rfl: 0 ? ? furosemide (LASIX) 20 MG tablet, Take 1 tablet by mouth Daily., Disp:90 tablet, Rfl: 1 ? ? Livalo 4 MG tablet, Take 1 tablet by mouth Every Night., Disp: 90tablet, Rfl: 1 ? ? omeprazole (priLOSEC) 20 MG capsule, Take 20 mg by mouth Daily., Disp:, Rfl: ? ? potassium chloride (MICRO-K) 10 MEQ CR capsule, Take 1 capsule by mouthDaily., Disp: 90 capsule, Rfl: 1 ? ? Xarelto 20 MG tablet, Take 1 tablet by mouth Daily., Disp: 90 tablet,Rfl: 1 Past Medical History: Diagnosis Date ? ? Allergies PHOLCODINE TRIPLE ANTIBIOTIC ? ? Chronic atrial fibrillation (HCC) ? ? Chronic atrial fibrillation, unspecified (HCC) ? ? CKD (chronic kidney disease), stage III (HCC) ? ? GERD without esophagitis ? ? Hypercholesterolemia ? ? Hypertension ? ? Mitral regurgitation 07/04/2022 MODERATE ? ? Nonrheumatic mitral (valve) insufficiency ? ? Paroxysmal atrial fibrillation (HCC) ? ? SOB (shortness of breath) Past Surgical History: Procedure Laterality Date ? ? APPENDECTOMY ? ? BACK SURGERY ? ? CHOLECYSTECTOMY ? ? SHOULDER SURGERY Left Family History Problem Relation Age of Onset ? ? Arthritis Mother ? ? Stroke Father ? ? Diabetes Sister ? ? Cancer Brother Social History Socioeconomic History ? ? Marital status: Single Tobacco Use ? ? Smoking status: Former Types: Cigarettes Substance and Sexual Activity ? ? Alcohol use: Yes Comment: BEER PER WK ? ? Drug use: Never Objective Vital Signs: BP 140/70 (BP Location: Left arm) Pulse 89 Ht 180.3 cm (71 ) Wt98.9 kg (218 lb) SpO2 98% BMI 30.40 kg/m?? Estimated body mass index is 30.4 kg/m?? as calculated from thefollowing: Height as of this encounter: 180.3 cm (71 ). Weight as of this encounter: 98.9 kg (218 lb). Physical Exam Constitutional: Appearance: Normal appearance. Eyes: Pupils: Pupils are equal, round, and reactive to light. Neck: Vascular: No carotid bruit. Cardiovascular: Rate and Rhythm: Normal rate. Rhythm irregular. Pulses: Normal pulses. Heart sounds: Normal heart sounds. Pulmonary: Effort: Pulmonary effort is normal. Breath sounds: Normal breath sounds. Musculoskeletal: General: Normal range of motion. Right lower leg: No edema. Left lower leg: No edema. Skin: General: Skin is warm and dry. Neurological: Mental Status: He is alert and oriented to person, place, and time. Gait: Gait is intact. Psychiatric: Attention and Perception: Attention normal. Mood and Affect: Mood normal. ECG 12 Lead Date/Time: 01/07/2023 11:06 AM Performed by: Carleen Dave APRN Authorized by: Carleen Dave APRN Comparison: compared with previous ECG from 01/03/2022 Similar to previous ECG Rhythm: atrial fibrillation Rate: normal Clinical impression: abnormal EKG Comments: Chronic A-fib rate controlled Assessment and Plan Diagnoses and all orders for this visit: 1. Atrial fibrillation, unspecified type (HCC) Assessment & Plan: Updated EKG today. And chronic A-fib. Euvolemic. On Xarelto and ratecontrolled. Declines PSG. Orders: - Xarelto 20 MG tablet; Take 1 tablet by mouth Daily. Dispense: 90tablet; Refill: 1 - furosemide (LASIX) 20 MG tablet; Take 1 tablet by mouth Daily.Dispense: 90 tablet; Refill: 1 - potassium chloride (MICRO-K) 10 MEQ CR capsule; Take 1 capsule bymouth Daily. Dispense: 90 capsule; Refill: 1 - ECG 12 Lead 2. Hypercholesterolemia Assessment & Plan: On Livalo refill and obtain labs from PCP Orders: - Livalo 4 MG tablet; Take 1 tablet by mouth Every Night. Dispense:90 tablet; Refill: 1 3. Coronary artery disease involving [facility] heart without angina pectoris,unspecified vessel or lesion type Assessment & Plan: Very mild, on statin, cath November 2018 . 4. Essential hypertension Assessment & Plan: Not on meds due to hypotension with treatment. Blood pressure 125/88 athome today. Orders: - ECG 12 Lead Recommendations: ER if symptoms increase, Limitations of stress testingfor definitive diagnosis reviewed, Sleep hygiene discussed, Limit salt andElevate legs Follow Up Return in about 6 months (around 07/07/2023). Patient was given instructions and counseling regarding his condition orfor health maintenance advice. Please see specific information pulled intothe AVS if appropriate. Carleen Dave APRN ECG ORDERABLES Fin al Result ECG documented in this encounter Visit Diagnoses Diagnosis Atrial fibrillation, unspecified type Hypercholesterolemia Pure hypercholesterolemia Coronary artery disease involving [place]orge heart without angina pectoris, unspecified vessel or lesion type Essential hypertension Unspecified essential hypertension documented in this encounter Care Teams Eligibility Supervisor Relationship Specialty Start Date End Date Cathy Blancas APRN [address] [place], [place] [id number] PCP - General Family Medicine 09/20/22 02/12/23 documented as of this encounter
--- OUTSIDE RECORDS SUMMARY | 2024-09-29 14:38 | XMS_ITS | Encounter Summary ---
[facility] Organization [facility] Address [address] [place] [address] Care Team Providers Care Weld Engineer Name Role Phone Robinson Manley MD Primary Care Provider [phone] Reason for Referral * Diagnostic Imaging (Routine) - Closed Specialty Diagnoses / Procedures Referred By Contac t Referred To Contact Diagnoses Abnormal echocardiogram Nonrheumatic mitral valve regurgitation Procedures Adult Transthoracic Echo Complete W/ Cont if Necessary Per Protocol Carleen Dave APRN [address] [place] [address] Phone: tel: fax: [facility] [address] [place] [address] Phone: tel: fax: Referral ID Status Reason Start Date Expiration Date Visits Re quested Visits Authorized [id number] Closed 07/09/2023 07/08/2024 1 1 Reason for Visit * Reason Comments Follow-up 6 month Atrial Fibrillation Encounter Details Date Type Department Care Team (Latest Contact Info) Description 07/09/2023 8:45 AM EDT Office Visit [facility] [address] [place] [address] [place] [address] Carleen Dave APRN [address] [place] [address] Atrial fibrillation, unspecified type; Hypercholesterolemia; Abnormal echocardiogram; Nonrheumatic mitral valve regurgitation Social History Tobacco Use Types Packs/Day Years Used Date Smoking Tobacco: Former Cigarettes Passive Smoke Exposure: Past Smokeless Tobacco: Never [...] Sign Reading Time Taken Comments Blood Pressure 138/80 07/09/2023 9:02 AM EDT Pulse 92 07/09/2023 9:02 AM EDT Temperature - - Respiratory Rate - - Oxygen Saturation 96% 07/09/2023 9:02 AM EDT Inhaled Oxygen Concentration - - Weight 98.9 kg (218 lb) 07/09/2023 9:02 AM EDT Height 177.8 cm (5' 10 ) 07/09/2023 9:02 AM EDT Body Mass Index 31.28 07/09/2023 9:02 AM EDT documented in this encounter Progress Notes * Carleen Dave, CARL - 07/09/2023 8:45 AM EDT Images from the original note were not included. [facility] Provider Note Date: 07/09/2023 Name: Santo Terrell : 1945 PCP: Robinson Manley MD Chief Complaint Patient presents with ??? Follow-up 6 month ??? Atrial Fibrillation Subjective History of Present Illness Santo Terrell is a 78 y.o. male who presents today for follow-up on hypertension, A-fib, CAD, mitral regurgitation, and hyperlipidemia. He denies any chest pain, shortness of air, edema, palpitations, dizziness, or syncope. 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 Today he has a pretty significant skin tear in his left forearm that startsat his wrist and goes up to his elbow. He has it covered with gauze and tape. He said he is keepingit clean and using salve on it. He is allergic to triple antibiotic. He did use triple antibiotic on the skin tear approximately 15 years ago and ended up having to have IV antibiotics. No signs of infection today. Patient reports he continuously gets severe skin tears and has done so for many years. He even has scarring from skin tears. Otherwise he continues to do well on Xarelto and is not having any marco signs of bleeding. HTN In the past he has become hypotensive with too much medication and so he always likes to be careful. His blood pressure continues to be at goal at home. Abnormal Echo 01/08/2023 echo-EF 56 to 60%, left ventricular wall thickness consistent with mild concentric hypertrophy, left atrial volume severely increased, right atrial cavity mild to moderately dilated, moderate mitral valve regurgitation. AFIB His atrial fibrillation continues to be asymptomatic and rate controlled. He is on Xarelto. Avoids beta-lorna for due to hypotension. CAD He denies any chest pain or shortness of air. He is on medical therapy for CAD. HLP His hyperlipidemia is managed by his PCP and he is currently on Livalo [address] Salmon. Need labs from PCP. Cardiology and sleep related problem list A-fib CAD Hypertension MR-mild to moderate Hyperlipidemia Easily becomes hypotensive Edema 01/08/2023 echo-EF 56 to 60%, left ventricular wall thickness consistent with mild concentric hypertrophy, left atrial volume severely increased, right atrial cavity mild to moderately dilated, moderate mitral valve regurgitation. Allergies Allergen Reactions ??? Triple Antibiotic W/Hydrocortisone [[id number]-Bzsztjga-Usnnxhynn-Hc] Rash Current Outpatient Medications: ??? allopurinol (ZYLOPRIM) 100 MG tablet, Take 1 tablet by mouth Daily., Disp: , Rfl: ??? Livalo 4 MG tablet, Take 1 tablet by mouth Every Night., Disp: 90 tablet, Rfl: 1 ??? omeprazole (priLOSEC) 20 MG capsule, Take 1 capsule by mouth Daily., Disp: , Rfl: ??? Xarelto 20 MG tablet, Take 1 tablet by mouth Daily., Disp: 90 tablet, Rfl: 1 Past Medical History: Diagnosis Date ??? Allergies PHOLCODINE TRIPLE ANTIBIOTIC ??? Chronic atrial fibrillation ??? Chronic atrial fibrillation, unspecified ??? CKD (chronic kidney disease), stage III ??? GERD without esophagitis ??? Hypercholesterolemia ??? Hypertension ??? Mitral regurgitation 07/04/2022 MODERATE ??? Nonrheumatic mitral (valve) insufficiency ??? Paroxysmal atrial fibrillation ??? SOB (shortness of breath) Past Surgical History: Procedure Laterality Date ??? APPENDECTOMY ??? BACK SURGERY ??? CHOLECYSTECTOMY ??? SHOULDER SURGERY Left Family History Problem Relation Age of Onset ??? Arthritis Mother ??? Stroke Father ??? Diabetes Sister ??? Cancer Brother Social History Socioeconomic History ??? Marital status: Single Tobacco Use ??? Smoking status: Former Types: Cigarettes Passive exposure: Past ??? Smokeless tobacco: Never Vaping Use ??? Vaping Use: Never used Substance and Sexual Activity ??? Alcohol use: Yes Comment: BEER PER WK ??? Drug use: Never ??? Sexual activity: Defer Objective Vital Signs: BP 138/80 (BP Location: Left arm) Pulse 92 Ht 177.8 cm (70 ) Wt 98.9 kg (218 lb) SpO2 96% BMI 31.28 kg/m?? Estimated body mass index is 31.28 kg/m?? as calculated from the following: Height as of this encounter: 177.8 cm (70 ). Weight as of this encounter: 98.9 kg (218 lb). Physical Exam Vitals reviewed. Constitutional: Appearance: Normal appearance. He is well-developed. HENT: Head: Normocephalic and atraumatic. Eyes: General: No scleral icterus. Pupils: Pupils are equal, round, and reactive to light. Neck: Vascular: No carotid bruit. Cardiovascular: Rate and Rhythm: Normal rate and regular rhythm. Pulses: Normal pulses. Radial pulses are 2+ on the right side and 2+ on the left side. Dorsalis pedis pulses are 2+ on the right side and 2+ on the left side. Posterior tibial pulses are 2+ on the right side and 2+ on the left side. Heart sounds: Normal heart sounds. No murmur heard. Pulmonary: Breath sounds: Normal breath sounds. No wheezing or rhonchi. Musculoskeletal: General: Normal range of motion. Right lower leg: No edema. Left lower leg: No edema. Skin: General: Skin is warm and dry. Capillary Refill: Capillary refill takes less than 2 seconds. Coloration: Skin is not cyanotic. Findings: Lesion present. Nails: There is no clubbing. Comments: LFA from wrist to elbow skin tear, advsied clean, pat dry, place vaseline and gauze dailyuntil healed. Neurological: Mental Status: He is alert and oriented to person, place, and time. Motor: No weakness. Gait: Gait normal. Psychiatric: Mood and Affect: Mood normal. Behavior: Behavior is cooperative. Thought Content: Thought content normal. Cognition and Memory: Memory normal. Assessment and Plan Diagnoses and all orders for this visit: 1. Atrial fibrillation, unspecified type Comments: Rate controlled. On Xarelto. Orders: - Xarelto 20 MG tablet; Take 1 tablet by mouth Daily. Dispense: 90 tablet; Refill: 1 2. Hypercholesterolemia Comments: Need labs from PCP. On [place] Orders: - Livalo 4 MG tablet; Take 1 tablet by mouth Every Night. Dispense: 90 tablet; Refill: 1 3. Abnormal echocardiogram Comments: Update echo next visit Orders: - Adult Transthoracic Echo Complete W/ Cont if Necessary Per Protocol; Future 4. Nonrheumatic mitral valve regurgitation Comments: Moderate on echo. Update echo next visit Orders: - Adult Transthoracic Echo Complete W/ Cont if Necessary Per Protocol; Future Recommendations: ER if symptoms increase and Report if any new/changing symptoms immediately Follow Up Return in about 6 months (around 01/09/2024) for with echo. Carleen Dave APRN 07/09/2023 Please note that this explicitly excludes time spent on other separate billable services such as performing procedures or test interpretation, when applicable. This note was created using dictation software which occasionally transcribes nonsensical phrases. Please contact the provider if any clarification is needed. documented in this encounter Plan of Treatment Upcoming Encounters Date Type Department Care Team (Late st Contact Info) Description 12/15/2024 8:30 AM EST Office Visit [facility] [address] [place] [phone] Hannah Martinez APRN [address] [place] [address] 02/04/2025 9:00 AM EDT Office Visit [facility] [address] [facility] [address] [place] [address] Britany Braxton MD [address] [facility] [address] [place] [address] documented as of this encounter Results * ECHO COMPLETE W/ DOPPLER AND COLOR FLOW (12/10/2023 2:45 PM EST) Pathologist [facility] EF(MOD-bp) 58.5 % LVIDd 4.7 cm LVIDs 3.4 cm IVSd 1.43 cm LVPWd 1.38 cm FS 27.4 % IVS/LVPW 1.04 cm ESV(cubed) 40.0 ml EDV(cubed) 104.5 ml LV mass(C)d 267.5 grams LVOT area 3.8 cm2 LVOT diam 2.20 cm EDV(MOD-sp2) 74.5 ml EDV(MOD-sp4) 56.2 ml ESV(MOD-sp2) 27.5 ml ESV(MOD-sp4) 28.6 ml SV(MOD-sp2) 47.0 ml SV(MOD-sp4) 27.6 ml EF(MOD-sp2) 63.1 % EF(MOD-sp4) 49.1 % TR max nickolas 257 cm/sec SV(LVOT) 45.2 ml RVIDd 3.8 cm LA dimension (2D) 5.1 cm LV V1 max 79.1 cm/sec LV V1 max PG 2.5 mmHg LV V1 mean PG 1.00 mmHg LV V1 VTI 11.9 cm Ao pk nickolas 121.0 cm/sec Ao max PG 5.9 mmHg Ao mean PG 3.0 mmHg Ao V2 VTI 18.6 cm JENS(I,D) 2.43 cm2 MV P1/2t 54.2 msec MVA(P1/2t) 4.1 cm2 MV dec slope 418.0 cm/sec2 TR max PG 26 mmHg RVSP(TR) 31 mmHg RAP systole 5.0 mmHg PA V2 max 103.0 cm/sec Ao root diam 3.3 cm Sinus 3.4 cm Ascending aorta 2.9 cm Anatomical Region Laterality Modality Ultrasound Narrative 12/12/2023 9:17 AM EST ?Left ventricular systolic function is normal. Calculated left ventricular EF = 58.5% ?Left ventricular wall thickness is consistent with mild concentric hypertrophy. ?Moderate mitral valve regurgitation is present. ?Estimated right ventricular systolic pressure from tricuspid regurgitation is normal (<35 mmHg). Left Ventricle Left ventricular systolic function is normal. Calculated left ventricular EF = 58.5% Normal left ventricular cavity size noted. Left ventricular wall thickness is consistent with mild concentric hypertrophy. All left ventricular wall segments contract normally. Left ventricular diastolic function was not assessed. Right Ventricle Normal right ventricular wall thickness, systolic function and septal motion noted. The right ventricular cavity is moderately dilated. Left Atrium The left atrial cavity is moderate to severely dilated. Left atrial volume is moderately increased. Right Atrium The right atrial cavity is mild to moderately dilated. Mitral Valve Mild mitral annular calcification is present. There is mild calcification of the mitral valve. Moderate mitral valve regurgitation is present. No significant mitral valve stenosis is present. Tricuspid Valve The tricuspid valve is structurally normal with no significant stenosis present. Mild tricuspid valve regurgitation is present. Estimated right ventricular systolic pressure from tricuspid regurgitation is normal (<35 mmHg). Aortic Valve No aortic valve regurgitation or stenosis is present. The aortic valve is abnormal in structure. The aortic valve exhibits sclerosis. The aortic valve appears trileaflet. Pulmonic Valve The pulmonic valve is not well visualized. The pulmonic valve is grossly normal in structure. There is no significant pulmonic valve regurgitation present. There is no pulmonic valve stenosis present. Pericardium The pericardium is normal. There is no evidence of pericardial effusion. . Greater Vessels No dilation of the aortic root is present. No dilation of the sinuses of Valsalva is present. No dilation of the proximal aorta is present. No dilation of the ascending aorta is present. The aortic arch not well visualized. The descending aorta not well visualized. Inferior vena cava not well visualized. The pulmonary artery not well visualized. Study Quality The study is technically difficult for diagnosis. The quality of the study is limited with poor acoustic windows. Atrial fibrillation was the predominant rhythm observed during the procedure. Wall Scoring Score Index: 1.00 The left ventricular wall motion is normal. Carleen Sakina Tenzin HENRY CV ECHO ORDERABLES Final Result documented in this encounter Visit Diagnoses Diagnosis Atrial fibrillation, unspecified type Hypercholesterolemia Pure hypercholesterolemia Abnormal echocardiogram Nonspecific (abnormal) findings on radiological and other examination of other intrathoracic organs Nonrheumatic mitral valve regurgitation Abnormal echocardiogram Nonspecific (abnormal) findings on radiological and other examination of other intrathoracic organs Nonrheumatic mitral valve regurgitation documented in this encounter Care Teams Weld Engineer Relationship Specialty Start Date End Date Robinson Manley MD [address] [place] [address] [place] [address] PCP - General Family Medicine 07/09/23 documented as of this encounter
--- OUTSIDE RECORDS SUMMARY | 2024-09-29 14:38 | XMS_ITS | Encounter Summary ---
Author Organization [facility] Address [address] [place] [address] Care Team Providers Care Scale Installer Name Role Phone Robinson Manley MD Primary Care Provider [phone]- [phone] Reason for Visit * Reason Comments Back Pain LLE numbness and wea kness * Consultation (Routine) - Authorized Specialty Diagnoses / Procedures Referred By Contac t Referred To Contact Neurosurgery Diagnoses Spinal stenosis, lumbar region without neurogenic claudication Anesthesia of skin Paresthesia of skin Kelle Small, ADDICTIONS THERAPIST [address] [facility] [place] [address] Phone: tel: fax: [facility] [address] Phone: tel: fax: Referral ID Status Reason Start Date Expiration Date V isits Requested Visits Authorized [id number] Authorized 11/13/2023 11/12/2024 2 2 Encounter Details Date Type Department Care Team (Late st Contact Info) Description 11/28/2023 10:20 AM EST Office Visit [facility] [address] [address] Hank Guzman MD [address] [place] [address] Spinal stenosis, lumbar region, with neurogenic claudication (Primary Dx) Social History Tobacco Use Types [...] - - Temperature 36.2 ??C (97.1 ??F) 11/28/2023 10:[address] Respiratory Rate - - Oxygen Saturation - - Inhaled Oxygen Concentration - - Weight 98.4 kg (217 lb) 11/28/2023 10:17 AM EST Height 185.4 cm (6' 1 ) 11/28/2023 10:17 AM EST Body Mass Index 28.63 11/28/2023 10:17 AM EST documented in this encounter Progress Notes * Hank Guzman MD - 11/28/2023 10:20 AM EST Patient: Santo Terrell : 1945 Primary Care Provider: Robinson Manley MD Requesting Provider: As above Chief Complaint: Back Pain (LLE numbness and weakness) History of Present Illness: This is a 78 y.o. male with a prior history of a left L4-5 discectomy several years ago. He comes in with 1 year progressively worsening back and bilateral lower extremitypain and weakness when ambulating. Patient states when he is sitting he has no issues. When he getsup and starts to walk he starts to get back pain as well as weakness and a heavy feeling in his legs. Once he sits down, the symptoms resolved. He has previously tried physical therapy which has not helped his symptoms. He denies any bowel or bladder incontinence. PMHX Allergies: Allergies Allergen Reactions Triple Antibiotic W/Hydrocortisone [[id number]-Xonpmeyt-Szxldrwjz-Hc] Rash Codeine Other (See Comments) Knots on my head Medications Current Outpatient Medications: allopurinol (ZYLOPRIM) 100 MG tablet, Take 1 tablet by mouth Daily., Disp: , Rfl: Livalo 4 MG tablet, Take 1 tablet by mouth Every Night., Disp: 90 tablet, Rfl: 1 omeprazole (priLOSEC) 20 MG capsule, Take 1 capsule by mouth Daily., Disp: , Rfl: predniSONE (DELTASONE) 20 MG tablet, Take 1 tablet by mouth Daily. Taking PRN for gout attack, Disp: , Rfl: probenecid (BENEMID) 500 MG tablet, Take 1 tablet by mouth 2 (Two) Times a Day., Disp: , Rfl: TART PELLETIER PO, Take by mouth., Disp: , Rfl: Xarelto 20 MG tablet, Take 1 tablet by mouth Daily., Disp: 90 tablet, Rfl: 1 Past Medical History: Past Medical History: Diagnosis Date Allergies PHOLCODINE TRIPLE ANTIBIOTIC Chronic atrial fibrillation Chronic atrial fibrillation, unspecified CKD (chronic kidney disease), stage III GERD without esophagitis Hypercholesterolemia Hypertension Mitral regurgitation 07/04/2022 MODERATE Nonrheumatic mitral (valve) insufficiency Paroxysmal atrial fibrillation SOB (shortness of breath) Past Surgical History: Past Surgical History: Procedure Laterality Date APPENDECTOMY BACK SURGERY CHOLECYSTECTOMY SHOULDER SURGERY Left Social Hx: Social History Tobacco Use Smoking status: Former Types: Cigarettes Passive exposure: Past Smokeless tobacco: Never Vaping Use Vaping Use: Never used Substance Use Topics Alcohol use: Yes Comment: BEER PER WK Drug use: Never Family Hx: Family History Problem Relation Age of Onset Arthritis Mother Stroke Father Diabetes Sister Cancer Brother Review of Systems: Review of Systems Constitutional: Negative for activity change, appetite change, chills, diaphoresis, fatigue, fever and unexpected weight change. HENT: Negative for congestion, dental problem, drooling, ear discharge, ear pain, facial swelling, hearing loss, mouth sores, nosebleeds, postnasal drip, rhinorrhea, sinus pressure, sneezing, sore throat, tinnitus, trouble swallowing and [...] dysuria, enuresis, flank pain, frequency, genital sores, hematuria and urgency. Musculoskeletal: Positive for arthralgias and back pain. Negative for gait problem, joint swelling,myalgias, neck pain and neck stiffness. Skin: Negative for color change, pallor, rash and wound. Allergic/Immunologic: Negative for environmental allergies, food allergies and immunocompromised state. Neurological: Positive for weakness and numbness. Negative for dizziness, tremors, seizures, syncope, facial asymmetry, speech difficulty, light- headedness and headaches. Hematological: Negative for adenopathy. Does not bruise/bleed easily. Psychiatric/Behavioral: Negative for agitation, behavioral problems, confusion, decreased concentration, dysphoric mood, hallucinations, self-injury, sleep disturbance and suicidal ideas. The patientis not nervous/anxious and is not hyperactive. All other systems reviewed and are negative. Physical Exam: Temp 97.1 ??F (36.2 ??C) (Infrared) Ht 185.4 cm (73 ) Wt 98.4 kg (217 lb) BMI 28.63 kg/m?? Awake, alert and oriented x 3 Speech f/c Opens eyes spont Pupils 3 mm rx bilaterally Extraocular muscles intact bilaterally Normal sensation to light touch in all 3 distributions of CN V bilaterally Face symmetric bilaterally Tongue midline 5/5 in the LE's bilaterally Diagnostic Studies: All neurological imaging studies were independently reviewed unless stated otherwise Assessment/Plan: This is a 78 y.o. male presenting with neurogenic claudication. In reviewing his lumbar MRI, he hassevere stenosis at L3-4 which I think is the source of the patient's claudicatory symptoms. He has previously tried physical therapy and medications, but continues to have symptoms which are severelyaffecting his quality of life and ability to ambulate. As such, I think the patient would benefit from an L3-4 laminectomy. I reviewed the risks, benefits and alternatives with the patient including but not limited to bleeding, infection, CSF leak, nerve injury, paralysis and need for further surgery. The patient understood these and would like to proceed with surgery. He is going to need to schedule this in approximately 2 to 3 months due to some personal reasons, which I think is reasonable. Additionally, we are going to get cardiac clearance for him to go off his Xarelto for 3 days prior and 3 days after surgery. Once the patient is ready to move forward surgery, he will call our office and we will get him scheduled. Diagnoses and all orders for this visit: 1. Spinal stenosis, lumbar region, with neurogenic claudication (Primary) Hank Guzman MD 11/28/23 10:53 EST documented in this encounter Plan of Treatment Upcoming Encounters Date Type Department Care Team (Late st Contact Info) Description 12/15/2024 8:30 AM EST Office Visit [facility] [address] [place] [phone] Hannah Martinez APRN [address] [place] [address] 02/04/2025 9:00 AM EDT Office Visit [facility] [address] [facility] [address] [place] [address] Britany Braxton MD [address] [facility] [address] [place] [address] documented as of this encounter Visit Diagnoses Diagnosis Spinal stenosis, lumbar region, with neurogenic claudication- Primary documented in this encounter Care Teams Scale Installer Relationship Specialty Start Date End Date Robinson Manley MD [address] [place] [address] [place] [address] PCP - General Family Medicine 07/09/23 documented as of this encounter
--- OUTSIDE RECORDS SUMMARY | 2024-09-29 14:38 | XMS_ITS | Encounter Summary ---
[facility] Address [address] [place] [address] Care Team Providers Care Realty Specialist Name Role Phone Robinson Manley MD Primary Care Provider +1- [phone] Reason for Visit * Reason Onset Date Comments KIRK DONAHUEAPPT 12/03/2023 Encounter Details Date Type Department Care Team (Late st Contact Info) Description 12/03/2023 Telephone [facility] [address] [place] [address] Naif Martinez APRN [address] [place] [address] NAIF MARTINEZ APRN-APPT Social History Tobacco Use Types Packs/Day Years Used Date Smoking Tobacco: Former Cigarettes Passive Smoke Exposure: Past Smokeless Tobacco: Never Alcohol Use Standard Drinks/Week Comments Yes 0 (1 standard drink = 0.6 oz pur e alcohol) BEER PER [facility] Utilities Answer Date Recorded In the past 12 months has [employer], gas, oil, or water Retail Info threatened to shut off services in your [...] or training? Not on file Preferred Language Portuguese 01/03/2024 Sex and Gender Information Value Date Recorded Sex Assigned at Not on file Legal Sex Male 1:15 PM EDT Gender Identity Not on file Sexual Orientation Not on file documented as of this encounter Miscellaneous Notes * Telephone Encounter - Konstantin Ferreira CMA - 12/03/2023 11:17 AM EST Can you move patient's appt up sooner for cardiac clearance? * Telephone Encounter - Alysah Lamas RegSched Rep - 12/03/2023 10:51 AM EST Caller: Santo Terrell Relationship to patient: Self Best call back number: [phone] Chief complaint: Type of visit: FOLLOW UP /CARDIAC CLEARANCE Requested date: VIGNESH If rescheduling, when is the original appointment: 01-06-24 Additional notes:PATIENT HAS APPOINTMENT ON 01-06-24 FOR FOLLOW UP AND CARDIAC CLEARANCE, PATIENT ISHAVING BACK SURGERY AND IS HAVING ISSUES WALKING AND NEEDS TO KNOW IF HIS APPOINTMENT CAN BE MOVED SOONER THAN 01-06-24 PATIENT IS IN EXTREME PAIN documented in this encounter Plan of Treatment Upcoming Encounters Date Type Department Care Team (Late st Contact Info) Description 12/15/2024 8:30 AM EST Office Visit [facility] [address] [place] [phone] Naif Martinez APRN [address] [place] [address] 02/04/2025 9:00 AM EDT Office Visit [facility] [address] [facility] [address] [place] [address] Britany Braxton MD [address] [facility] [address] [place] [address] documented as of this encounter Visit Diagnoses Not on filedocumented in this encounter Care Teams Realty Specialist Relationship Specialty Start Date End Date Robinson Manley MD [address] [place] [address] PCP - General Family Medicine 07/09/23 documented as of this encounter
--- OUTSIDE RECORDS SUMMARY | 2024-09-29 14:38 | XMS_ITS | Encounter Summary ---
Author Organization [facility] Address [address] [place] [address] Care Team Providers Care Termite Control Servicer Name Role Phone Unavailable Primary Care Provider Unavailabl e Encounter Details Date Type Department Care Team (Late st Contact Info) Description 02/13/2013 Conversion Encounter [facility] [address] [place] [address] Interface, See Report Social History Tobacco Use Types Packs/Day Years [...] [facility] [address] [place] [phone] Hannah Martinez, DOOR REPAIRMAN [address] [place] [address] 02/04/2025 9:00 AM EDT Office Visit [facility] [address] [facility] [address] [place] [address] Britany Braxton MD [address] [facility] [address] [place] [address] documented as of this encounter Procedures Procedure Name Priority Date/Time Associated Diagnosis Comments CONVERTED (HISTORICAL) SURGICAL PATHOLOGY Routine 02/13/2013 9:54 AM EDT documented in this encounter Results * Converted Surgical Pathology (02/13/2013 9:54 AM EDT) 02/13/2013 9:54 AM EDT Narrative [facility] - 02/16/2013 11:06 AM EDT [facility] [address] [place] [address] SURGICAL PATHOLOGY REPORT Patient Name: MARILYN TERRELL MR#: [id number] : 1945 Gender: M Ordering Physician: SHAW BENITES Copy To: ?? Location: [address] [place] [address] Collected: 02/13/2013 Received: 02/13/2013 Reported: 02/16/2013 Clinical Diagnosis and History The working history is herniated disc, L4-L5 left. Final Diagnosis DISC, DISCECTOMY, L4-L5 LEFT: ? Fragments of fibrohyaline cartilage, no acute inflammation or metastatic disease identified. DGD/rw Amendments: Electronically Signed Out By JE ORTEZ Specimen(s) Received: Intervertebral disc Gross Description Received in formalin labeled disc (L4-L5 left) consists of 6cc of orosco fragments. Cutter Woodwind Reeds sections are submitted in one block. ??MHB/rw Microscopic Description See diagnosis. ??DGD/rw Procedures/Addenda us See Report Interface PATHOLOGY/CYTOLOGY ORDERABL ES Final Result [facility] [address] [place] [address], documented in this encounter Visit Diagnoses Not on filedocumented in this encounter
--- OUTSIDE RECORDS SUMMARY | 2024-09-29 14:38 | XMS_ITS | Encounter Summary ---
Author Organization [facility] Address [address] [place] [address] Care Team Providers Care Experience Design Director Name Role Phone Cathy Blancas PUPPY TRAINER Primary Care Provider [phone]- [phone] Encounter Details Date Type Department Care Team (Late st Contact Info) Description 11/19/2022 Telephone [facility] [address] [place] [address] Cathy Blancas, PUPPY TRAINER [address] [place], [place] [id number] Social History Tobacco Use Types Packs/Day Years Used Date Smoking Tobacco: Never Assessed Sex and Gender Information Value Date Recorded Sex Assigned at Not on file Legal Sex Male 1:15 PM EDT Gender Identity Not on file Sexual Orientation Not on file documented as of this encounter Miscellaneous Notes * Telephone Encounter - Lisa Guy MA - 11/19/2022 10:32 AM EST Will need follow up scheduled script sent in * Telephone Encounter - Shanta Paniagua RegSched Rep - 11/19/2022 9:49 AM EST PT CAME IN REQUESTING A REFILL ON HIS POTASSIUM 10 MEQ WELL A REFILL ON BETAMETHASONE DIPROPIONATE 0.05% CREAM- HE IS OUT AND NEEDS BOTH VIGNESH documented in this encounter Plan of Treatment Upcoming Encounters Date Type Department Care Team (Late st Contact Info) Description 12/15/2024 8:30 AM EST Office Visit [facility] [address] [place] [phone] Hannah Martinez APRN [address] [place] [address] 02/04/2025 9:00 AM EDT Office Visit [facility] NEUR[facility] [address] [facility] [address] [place] [address] Britany Braxton MD [address] [facility] [address] [place] [address] documented as of this encounter Visit Diagnoses Not on filedocumented in this encounter Care Teams Experience Design Director Relationship Specialty Start Date End Date Cathy Blancas, PUPPY TRAINER 6 [place] [address] PCP - General Family Medicine 09/20/22 02/12/23 documented as of this encounter
--- OUTSIDE RECORDS SUMMARY | 2024-09-29 14:38 | XMS_ITS | Encounter Summary ---
[facility] Address [address] [place] [address] Care Team Providers Care Sheet Metal Engineer Name Role Phone Magalis Cathy N GUMMING MACHINE OPERATOR Primary Care Provider [phone] Reason for Visit * Diagnostic Imaging (Routine) - Closed Specialty Diagnoses / Procedures Referred By Contac t Referred To Contact Cardiology Diagnoses Mitral valve insufficiency, unspecified etiology Procedures Adult Transthoracic Echo Complete W/ Cont if Necessary Per Protocol Carleen Dave APRN Phone: tel: fax: [facility] [address] [place] [address] Phone: tel: fax: Referral ID Status Reason Start Date Expiration Date Visits Re quested Visits Authorized [id number] Closed 12/06/2022 12/06/2023 1 1 Encounter Details Date Type Department Care Team (Latest Contact Info) Description 01/07/2023 9:15 AM EST Ancillary Procedure [facility] [address] [place] [address] Mitral valve insufficiency, unspecified etiology Social History Tobacco Use Types Packs/Day Years Used Date Smoking Tobacco: Former Cigarettes Alcohol Use Standard Drinks/Week Comments Yes 0 [...] Sign Reading Time Taken Comments Blood Pressure 125/88 01/07/2023 9:33 AM EST Pulse - - Temperature - - Respiratory Rate - - Oxygen Saturation - - Inhaled Oxygen Concentration - - Weight 98.9 kg (218 lb) 01/07/2023 9:33 AM EST Height 185.4 cm (6' 1 ) 01/07/2023 9:33 AM EST Body Mass Index 28.76 01/07/2023 9:33 AM EST documented in this encounter Plan of Treatment Upcoming Encounters Date Type Department Care Team (Late st Contact Info) Description 12/15/2024 8:30 AM EST Office Visit [facility] [address] [place] [phone] Hannah Martinez APRN [address] [place] [address] 02/04/2025 9:00 AM EDT Office Visit [facility] [address] [facility] [address] [place] [address] Britany Braxton MD [address] [facility] [address] [place] [address] documented as of this encounter Procedures Procedure Name Priority Date/Time Associated Diagnosis Comments ECHO COMPLETE W/ DOPPLER AND COLOR FLOW Routine 01/07/2023 10:00 AM EST Mitral valve insufficiency, unspecified etiology documented in this encounter Results * ECHO COMPLETE W/ DOPPLER AND COLOR FLOW (01/07/2023 10:00 AM EST) EF(MOD-bp) 56.0 % LVIDd 5.0 cm LVIDs 3.5 cm IVSd 1.2 cm LVPWd 1.2 cm FS 29 % LVOT diam 2.0 cm RVIDd 3.30 cm TAPSE (>1.6) 2.00 cm LA dimension (2D) 5.3 cm LV V1 max 78.0 cm/sec LV V1 max PG 2.4 mmHg LV V1 mean PG 1.4 mmHg LV V1 VTI 15.0 cm Ao pk nickolas 104.0 cm/sec Ao max PG 4 mmHg Ao mean PG 3 mmHg Ao V2 VTI 19.0 cm JENS(I,D) 2.4 cm2 MV P1/2t 61.00 msec MVA(P1/2t) 3.60 cm2 TR max nickolas 246 cm/sec TR max PG 24 mmHg RVSP(TR) 29 mmHg RAP systole 5 mmHg PA V2 max 92 cm/sec Ao root diam 3.2 cm Sinus 3.2 cm Ascending aorta 3.2 cm MR max nickolas 390 cm/sec MR max PG 61 mmHg MR mean nickolas 323 cm/sec MR mean PG 44 mmHg MR VTI 120 cm Anatomical Region Laterality Modality Ultrasound Narrative 01/08/2023 10:31 AM EST ?Left ventricular systolic function is normal. Left ventricular ejection fraction appears to be 56 - 60%. ?Left ventricular wall thickness is consistent with mild concentric hypertrophy. ?Left atrial volume is severely increased. ?The right atrial cavity is mild to moderately ??dilated. ?Moderate mitral valve regurgitation is present. ?Estimated right ventricular systolic pressure from tricuspid regurgitation is normal (<35 mmHg). Left Ventricle Left ventricular systolic function is normal. Left ventricular ejection fraction appears to be 56 - 60%. Normal left ventricular cavity size noted. Left ventricular wall thickness is consistent with mild concentric hypertrophy. All left ventricular wall segments contract normally. Left ventricular diastolic function was not assessed. Right Ventricle Normal right ventricular wall thickness and systolic function noted. The right ventricular cavity is mildly dilated. Left Atrium The left atrial cavity is dilated. Left atrial volume is severely increased. Right Atrium The right atrial cavity is mild to moderately dilated. Mitral Valve Mild mitral annular calcification is present. There is mild calcification of the mitral valve anterior and posterior leaflet(s). Moderate mitral valve regurgitation is present. No significant mitral valve stenosis is present. Tricuspid Valve The tricuspid valve is structurally normal with no significant stenosis present. Mild tricuspid valve regurgitation is present. Estimated right ventricular systolic pressure from tricuspid regurgitation is normal (<35 mmHg). No evidence of pulmonary hypertension is present. Aortic Valve No aortic valve regurgitation or stenosis is present. The aortic valve is abnormal in structure. The aortic valve exhibits sclerosis. The aortic valve appears trileaflet. Pulmonic Valve The pulmonic valve is structurally normal. There is trace pulmonic valve regurgitation present. Pericardium The pericardium is normal. There is no evidence of pericardial effusion. . Greater Vessels No dilation of the aortic root is present. No dilation of the sinuses of Valsalva is present. No dilation of the proximal aorta is present. No dilation of the ascending aorta is present. No dilation of the aortic arch is present. No dilation of the descending aorta present. Inferior vena cava not well visualized. The main pulmonary artery is grossly normal. Study Quality The study is technically difficult for diagnosis. Atrial fibrillation was the predominant rhythm observed during the procedure. Wall Scoring Score Index: 1.00 The left ventricular wall motion is normal. Carleen Dave APRN CV ECHO ORDERABLES Final Result documented in this encounter Visit Diagnoses Diagnosis Mitral valve insufficiency, unspecified etiology documented in this encounter Care Teams Sheet Metal Engineer Relationship Specialty Start Date End Date Cathy Blancas APRN [address] [place] [address] PCP - General Family Medicine 09/20/22 02/12/23 documented as of this encounter
--- OUTSIDE RECORDS SUMMARY | 2024-09-29 14:38 | XMS_ITS | Encounter Summary ---
[facility] Address [address] [place] [address] Care Team Providers Care Business Owner/Engineer Name Role Phone Robinson Manley MD Primary Care Provider [phone]- [phone] Reason for Visit * Diagnostic Imaging (Routine) - Closed Specialty Diagnoses / Procedures Referred By Contac t Referred To Contact Diagnoses Abnormal echocardiogram Nonrheumatic mitral valve regurgitation Procedures Adult Transthoracic Echo Complete W/ Cont if Necessary Per Protocol Carleen Dave APRN [address] [place] [address] Phone: tel: fax: [facility] [address] [place] [address] Phone: tel: fax: Referral ID Status Reason Start Date Expiration Date Visits Re quested Visits Authorized [id number] Closed 07/09/2023 07/08/2024 1 1 Encounter Details Date Type Department Care Team (Latest Contact Info) Description 12/10/2023 2:30 PM EST Ancillary Procedure [facility] [address] [place] [address] [place] [address] Abnormal echocardiogram; Nonrheumatic mitral valve regurgitation Social [...] Feels Threatened by Someone? Not on file 10/ 07/2023 Does Anyone Keep You from Co [...] Sign Reading Time Taken Comments Blood Pressure 144/97 12/10/2023 2:07 PM EST Pulse - - Temperature - - Respiratory Rate - - Oxygen Saturation - - Inhaled Oxygen Concentration - - Weight 96.6 kg (213 lb) 12/10/2023 2:07 PM EST Height 185.4 cm (6' 1 ) 12/10/2023 2:07 PM EST Body Mass Index 28.1 12/10/2023 2:07 PM EST documented in this encounter Plan of Treatment Upcoming Encounters Date Type Department Care Team (Late st Contact Info) Description 12/15/2024 8:30 AM EST Office Visit [facility] [address] [place] [address] Hannah Martinez APRN [address] [place] [address] 02/04/2025 9:00 AM EDT Office Visit [facility] [address] [facility] [address] [place] [address] Britany Braxton MD [address] [facility] [address] [place] [address] documented as of this encounter Procedures Procedure Name Priority Date/Time Associated Diagnosis Comments ECHO COMPLETE W/ DOPPLER AND COLOR FLOW Routine 12/10/2023 2:45 PM EST Abnormal echocardiogram Nonrheumatic mitral valve regurgitation documented in this encounter Results * ECHO COMPLETE W/ DOPPLER AND COLOR FLOW (12/10/2023 2:45 PM EST) EF(MOD-bp) 58.5 % LVIDd 4.7 cm LVIDs [...] The left ventricular wall motion is normal. us Carleen Sakina Tenzin BABBITT SPINNER CV ECHO ORDERABLES Final Result documented in this encounter Visit Diagnoses Diagnosis Abnormal echocardiogram Nonspecific (abnormal) findings on radiological and other examination of other intrathoracic organs Nonrheumatic mitral valve regurgitation documented in this encounter Care Teams Business Owner/Engineer Relationship Specialty Start Date End Date Robinson Manley MD [address] [place] [address] [facility] [facility] [address] PCP - General Family Medicine 07/09/23 documented as of this encounter
--- OUTSIDE RECORDS SUMMARY | 2024-09-29 14:38 | XMS_ITS | Encounter Summary ---
[facility] Address [address] [place] [address] Care Team Providers Care Director Targeted Marketing Name Role Phone Robinson Manley MD Primary Care Provider +1- [phone] Encounter Details Date Type Department Care Team (Late st Contact Info) Description 11/28/2023 Telephone [facility] [address] [place] [address] Chen Wyatt MD [address] [place] [address] Social History Tobacco Use Types Packs/Day Years [...] Miscellaneous Notes * Telephone Encounter - Lisa Badillo RN - 11/28/2023 1:42 PM EST Called pt back for need of preop clearance. He relates he does not have a surgery date. He is already scheduled for an Echo on 01/06/2024 with OV to follow on that day with . He wishes to keep this appointment and discuss surgery at that time. * Telephone Encounter - Lisa Badillo RN - 11/28/2023 1:06 PM EST LVM for pt to call back. * Telephone Encounter - Konstantin Ferreira CMA - 11/28/2023 11:14 AM EST Please advise * Telephone Encounter - Harper Jane RegSched Rep - 11/28/2023 11:04 AM EST Who needs clearance: Santo [place] Who/where is the surgery being done: [facility] Hank Guzman L3 and L4 laminectomy When is the Surgery: N/A maybe around January or February . They can also look in the chart They will need him to hold his Xarelto for three days before and also 3 days after. documented in this encounter Plan of Treatment Upcoming Encounters Date Type Department Care Team (Late st Contact Info) Description 12/15/2024 8:30 AM EST Office Visit [facility] [address] [place] [phone] Hannah Martinez APRN [address] [place] [address] 02/04/2025 9:00 AM EDT Office Visit [facility] [address] [facility] [address] [place] [address] Britany Braxton MD 2101 [facility] [address] [place] [address] documented as of this encounter Visit Diagnoses Not on filedocumented in this encounter Care Teams Director Targeted Marketing Relationship Specialty Start Date End Date Robinson Manley MD [address] [place] [address] PCP - General Family Medicine 07/09/23 documented as of this encounter
--- OUTSIDE RECORDS SUMMARY | 2024-09-29 14:38 | XMS_ITS | Encounter Summary ---
[facility] Address [address] [place] [id number] Care Team Providers Care Franchise Development Manager Name Role Phone Cathy Blancas FARE ENFORCEMENT OFFICER Primary Care Provider +[phone] Encounter Details Date Type Department Care Team (Late st Contact Info) Description 01/24/2023 Refill [facility] [address] [place] [address] Cathy Blancas, FARE ENFORCEMENT OFFICER [address] [place], [place] [id number] Social History Tobacco Use Types Packs/Day Years [...] encounter Miscellaneous Notes * Telephone Encounter - Dannielle Zarate MA - 01/24/2023 2:02 PM EDT Cathy when I go to send it says there is an interaction with Josh is it okay to still send? Requesting a refill Last appointment on 06/07/2022 Last refill patient needs to be seen Called and advised patient that he would need to be seen before anymore documented in this encounter Plan of Treatment Upcoming Encounters Date Type Department Care Team (Late st Contact Info) Description 12/15/2024 8:30 AM EST Office Visit [facility] [address] [place] [phone] Hannah Martinez APRN [address] [place] [address] 02/04/2025 9:00 AM EDT Office Visit [facility] [address] [email or web address] [address] [place] [address] Britany Braxton MD [address] [facility] [address] [place] [address] documented as of this encounter Visit Diagnoses Not on filedocumented in this encounter Care Teams Franchise Development Manager Relationship Specialty Start Date End Date Cathy Blancas, FARE ENFORCEMENT OFFICER [address] [place] [address] PCP - General Family Medicine 09/20/22 02/12/23 documented as of this encounter
--- OUTSIDE RECORDS SUMMARY | 2024-09-29 14:38 | XMS_ITS | Encounter Summary ---
Author Organization [facility] ystem Address [address] [place] [address] Care Team Providers Care Chemistry Instructor Name Role Phone Cathy Blancas MANUFACTURER'S REPRESENTATIVE Primary Care Provider +1- [phone] Reason for Visit * Reason Onset Date Comments Med Refill 09/21/2022 Encounter Details Date Type Department Care Team (Late st Contact Info) Description 09/21/2022 Refill [facility] [address] [place] [address] [place] [address] Cathy Blancas, MANUFACTURER'S REPRESENTATIVE [address] [place] [address] Social History Tobacco Use Types Packs/Day Years Used Date Smoking Tobacco: Never Assessed Sex and Gender Information Value Date Recorded Sex Assigned at Not on file Legal Sex Male 1:15 PM EDT Gender Identity Not on file Sexual Orientation Not on file documented as of this encounter Miscellaneous Notes * Telephone Encounter - Lisa Guy MA - 09/21/2022 12:27 PM EST Printed yesterday by mistake resent today documented in this encounter Plan of Treatment Upcoming Encounters Date Type Department Care Team (Late st Contact Info) Description 12/15/2024 8:30 AM EST Office Visit [facility] [address] [place] [phone] Hannah Martinez APRN [address] [place] [address] 02/04/2025 9:00 AM EDT Office Visit [facility] [facility] [address] [place] [address] Britany Braxton MD [address] [facility] [address] [place] [address] documented as of this encounter Visit Diagnoses Not on filedocumented in this encounter Care Teams Chemistry Instructor Relationship Specialty Start Date End Date Cathy Blancas APRN [address] [place] [address] PCP - General Family Medicine 09/20/22 02/12/23 documented as of this encounter
--- OUTSIDE RECORDS SUMMARY | 2024-09-29 14:38 | XMS_ITS | Encounter Summary ---
Author Organization [facility] ystem Address [address] [place] [address] Care Team Providers Care Deputy Editor In Chief Name Role Phone Robinson Manley MD Primary Care Provider [phone]- [phone] Encounter Details Date Type Department Care Team (Late st Contact Info) Description 07/09/2023 Telephone [facility] [address] [place] [address] Carleen Dave APRN [address] [place] [address] Social History Tobacco Use Types [...] encounter Miscellaneous Notes * Telephone Encounter - Carleen Dave APRN - 07/09/2023 3:27 PM EDT ----- Message from Chen Wyatt MD sent at 07/09/2023 1:53 PM EDT ----- Regarding: RE: Echo Not really, once it???s enlarged it is what it is. Usually a consequence of diastolic dysfunction, so BP control and fluid control are important. But it won???t go back down. ----- Message ----- From: Carleen Dave APRN Sent: 07/09/2023 1:35 PM EDT To: Chen Wyatt MD Subject: Echo Hannah and I are curious if there is anything to do with/for a left atrial volume severely increased echo result? 01/08/2023 echo-EF 56 to 60%, left ventricular wall thickness consistent with mild concentric hypertrophy, left atrial volume severely increased, right atrial cavity mild to moderately dilated, moderate mitral valve regurgitation. Sakina Bonilla * Telephone Encounter - Ursula Barragan MA - 07/09/2023 1:56 PM EDT Called PCP they will fax labs to office once their system comes back up * Telephone Encounter - Ursula Barragan MA - 07/09/2023 1:56 PM EDT ----- Message from Carleen Dave APRN sent at 07/09/2023 1:38 PM EDT ----- Regarding: labs Need last set of labs including BMP and lipids from PCP. documented in this encounter Plan of Treatment Upcoming Encounters Date Type Department Care Team (Late st Contact Info) Description 12/15/2024 8:30 AM EST Office Visit [facility] [address] [place] [phone] Hannah Martinez APRN [address] [place] [address] 02/04/2025 9:00 AM EDT Office Visit [facility] [address] [facility] [address] [place] [address] Britany Braxton MD [address] [facility] [address] [place] [address] documented as of this encounter Visit Diagnoses Not on filedocumented in this encounter Care Teams Deputy Editor In Chief Relationship Specialty Start Date End Date Robinson Manley MD [address] [place] [address] PCP - General Family Medicine 07/09/23 documented as of this encounter
--- OUTSIDE RECORDS SUMMARY | 2024-09-29 14:38 | XMS_ITS | Encounter Summary ---
[facility] Address [address] [place] [address] Care Team Providers Care Sandwich Board Carrier Name Role Phone Robinson Manley MD Primary Care Provider [phone]- [phone] Reason for Visit * Reason Comments Follow-up 6 Month follow up Encounter Details Date Type Department Care Team (Late st Contact Info) Description 12/10/2023 3:00 PM EST Office Visit [facility] [address] [place] [address] Hannah Martinez, FIRST FRONT VENTILATOR [address] [place] [address] Atrial fibrillation, unspecified type (Primary Dx); Essential hypertension; Coronary artery disease involving [place] heart without angina pectoris, unspecified vessel or lesion type Social History Tobacco Use Types Packs/Day Years [...] Sign Reading Time Taken Comments Blood Pressure 138/90 12/10/2023 3:39 PM EST Pulse 111 12/10/2023 2:50 PM EST Temperature - - Respiratory Rate - - Oxygen Saturation 98% 12/10/2023 2:50 PM EST Inhaled Oxygen Concentration - - Weight 97.5 kg (215 lb) 12/10/2023 2:50 PM EST Height 185.4 cm (6' 1 ) 12/10/2023 2:50 PM EST Body Mass Index 28.37 12/10/2023 2:50 PM EST documented in this encounter Progress Notes * Hannah Martinez APRN - 12/11/2023 8:31 AM ESTAssociated Problem(s): Atrial fibrillation Chronic atrial fibrillation. EKG today showed atrial [...] and repeat EKG prior to cardiac clearance. * Hannah Martinez APRN - 12/11/2023 8:30 AM ESTAssociated Problem(s): Essential hypertension BP is elevated today due to severe back pain. Repeat blood pressure prior to discharge was 138/90. He is also on high-dose prednisone pack at this time. We will have him follow-up in 1 week to reassess heart rate and blood pressure after completing prednisone. * Hannah Martinez APRN - 12/11/2023 8:29 AM ESTAssociated Problem(s): Coronary artery disease involving [place] heart without angina pectoris Left heart cath in 2019 showed noncritical coronary stenosis (25-50% distal LAD stenosis). Patient is currently asymptomatic. He denies chest pain or worsening shortness of breath. 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 - Continue Livalo at current dose. * Hannah Martinez APRN - 12/10/2023 3:00 PM ESTAssociated Order(s): ECG 12 Lead Post-Procedure Diagnose(s): Atrial fibrillation, unspecified type Images from the original note were not included. [facility] Provider Note Date: 12/10/2023 Name: Santo Terrell : 1945 PCP: Robinson Manley MD Chief Complaint Patient presents with Follow-up 6 Month follow up Subjective History of Present Illness Santo Terrell is a 78 y.o. male who presents today for follow-up visit and cardiac clearance priorto back surgery. Patient has a history of chronic atrial fibrillation, nonobstructive CAD, hypertension and moderate mitral regurgitation. He completed an echocardiogram today that revealed an LVEF of 59%, moderate mitral valve regurgitation and normal RVSP. EKG today showed atrial fibrillation with a rate of 115 bpm. Patient denies any current symptoms. He denies chest pain, palpitations, dizziness, weakness, lower extremity edema or syncope. He just started a high-dose prednisone pack for in the acute gout flareup. He took 60 mg of prednisone 2 hours prior to his visit today. He reports that his heart rate is usually within normal range. His blood pressure is also elevated today, however he is experiencing significant back pain. Repeat blood pressure prior to discharge was 138/90. We will have patient return in 1 week after he completes prednisone and repeat EKG prior to cardiac clearance. Cardiac History 1. Chronic A-fib, not on beta-lorna due to hypotension 2. Non-obstructive CAD 3. Hypertension 4. MR-mild to moderate 5. Hyperlipidemia Echocardiogram 12/10/2023-LVEF 59%. Moderate mitral valve regurgitation. Normal RVSP. C 11/17/18- Non-critical coronary stenosis. (25-50% distal LAD stenosis) Reports Denies Chest Pain [] [x] Shortness of Air [] [x] Palpitations [] [x] Edema [] [x] Dizziness [] [x] Syncope [] [x] Allergies Allergen Reactions Triple Antibiotic W/Hydrocortisone [Fsicvnk-Hpvwcajs-Aamlwkrhl-Hc] Rash Codeine Other (See Comments) Knots on [...] Sexual activity: Defer Objective Vital Signs: BP 138/90 Pulse 111 Ht 185.4 cm (73 ) Wt 97.5 kg (215 lb) SpO2 98% BMI 28.37 kg/m?? Estimated body mass index is 28.37 kg/m?? as calculated from the following: Height as of this encounter: 185.4 cm (73 ). Weight as of this encounter: 97.5 kg (215 lb). BMI is >= 25 and <30. (Overweight) The following options were offered after discussion;: exercise counseling/recommendations Physical Exam Constitutional: Appearance: Normal appearance. He is well-developed. HENT: Head: Normocephalic and atraumatic. Eyes: Pupils: Pupils are equal, round, and reactive to light. Neck: Vascular: No carotid bruit. Cardiovascular: Rate and Rhythm: Normal rate and regular rhythm. Rhythm irregular. Pulses: Normal pulses. Dorsalis pedis pulses are 2+ on the right side and 2+ on the left side. Posterior tibial pulses are 2+ on the right side and 2+ on the left side. Heart sounds: Normal heart sounds. No murmur heard. Pulmonary: Breath sounds: Normal breath sounds. No wheezing or rhonchi. Musculoskeletal: Right lower leg: No edema. Left lower leg: No edema. Skin: Capillary Refill: Capillary refill takes less than 2 seconds. Coloration: Skin is not cyanotic. Nails: There is no clubbing. Neurological: Mental Status: He is alert and oriented to person, place, and time. Motor: No weakness. Gait: Gait normal. Psychiatric: Mood and Affect: Mood normal. Behavior: Behavior is cooperative. Thought Content: Thought content normal. Cognition and Memory: Memory normal. ECG 12 Lead Date/Time: 12/10/2023 4:15 PM Performed by: Hannah Martinez APRN Authorized by: Hannah Martinez APRN Comparison: compared with previous ECG Similar to previous ECG Rhythm: atrial fibrillation Rate: tachycardic BPM: 115 Other findings comments: Moderate ST depression. Clinical impression: abnormal EKG Assessment and Plan Diagnoses and all orders for this visit: 1. Atrial fibrillation, unspecified type (Primary) Assessment & Plan: Chronic atrial fibrillation. EKG today showed atrial [...] and repeat EKG prior to cardiac clearance. Orders: - ECG 12 Lead 2. Essential hypertension Assessment & Plan: BP is elevated today due to severe back pain. Repeat blood pressure prior to discharge was 138/90. He is also on high-dose prednisone pack at this time. We will have him follow-up in 1 week to reassess heart rate and blood pressure after completing prednisone. 3. Coronary artery disease involving [place] heart without angina pectoris, unspecified vessel or lesion type Assessment & Plan: Left heart cath in 2019 showed noncritical coronary stenosis (25-50% distal LAD stenosis). Patient is currently asymptomatic. He denies chest pain or worsening shortness of breath. 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 - Continue Livalo at current dose. Recommendations: ER if symptoms increase and Report if any new/changing symptoms immediately Follow Up Return in about 1 week (around 12/17/2023) for BP check, repeat EKG. . Patient was given instructions and counseling regarding his condition or for health maintenance advice. Please see specific information pulled into the AVS if appropriate. documented in this encounter Plan of Treatment Upcoming Encounters Date Type Department Care Team (Late st Contact Info) Description 12/15/2024 8:30 AM EST Office Visit [facility] [address] [place] [phone] Hannah Martinez APRN [address] [place] [id number] 02/04/2025 9:00 AM EDT Office Visit [facility] [address] [facility] [address] [place] [address] Britany Braxton MD [address] [facility] [address] [place] [address] documented as of this encounter Procedures Procedure Name Priority Date/Time Associated Diagnosis Comments ECG 12-LEAD Routine 12/10/2023 Atrial fibrillation, unspecified type documented in this encounter Results * ECG 12-LEAD (12/10/2023) Narrative 12/10/2023 Hannah Martinez APRN ? 12/11/2023 ??8:32 AM ECG 12 Lead Date/Time: 12/10/2023 4:15 PM Performed by: Hannah Martinez APRN Authorized by: Hannah Martinez APRN ??Comparison: compared with previous ECG Similar to previous ECG Rhythm: atrial fibrillation Rate: tachycardic BPM: 115 Other findings comments: Moderate ST depression. Clinical impression: abnormal EKG Procedure Note Hannah Martinez APRN - 12/10/2023 3:00 PM EST Images from the original note were not included. [facility] Provider Note Date: 12/10/2023 Name: Santo Terrell : 1945 PCP: Robinson Manley MD Chief Complaint Patient presents with Follow-up 6 Month follow up Subjective History of Present Illness Santo Terrell is a 78 y.o. male who presents today for follow-up visitand cardiac clearance prior to back surgery. Patient has a history ofchronic atrial fibrillation, nonobstructive CAD, hypertension and moderatemitral regurgitation. He completed an echocardiogram today that revealedan LVEF of 59%, moderate mitral valve regurgitation and normal RVSP. EKGtoday showed atrial fibrillation with a rate of 115 bpm. Patient deniesany current symptoms. He denies chest pain, palpitations, dizziness,weakness, lower extremity edema or syncope. He just started a high-doseprednisone pack for in the acute gout flareup. He took 60 mg ofprednisone 2 hours prior to his visit today. He reports that his heartrate is usually within normal range. His blood pressure is also elevatedtoday, however he is experiencing significant back pain. Repeat bloodpressure prior to discharge was 138/90. We will have patient return in 1week after he completes prednisone and repeat EKG prior to cardiacclearance. Cardiac History 1. Chronic A-fib, not on beta-lorna due to hypotension 2. Non-obstructive CAD 3. Hypertension 4. MR-mild to moderate 5. Hyperlipidemia Echocardiogram 12/10/2023-LVEF 59%. Moderate mitral valve regurgitation.Normal RVSP. C 11/17/18- Non-critical coronary stenosis. (25-50% distal LAD stenosis) Reports Denies Chest Pain [] [x] Shortness of Air [] [x] Palpitations [] [x] Edema [] [x] Dizziness [] [x] Syncope [] [x] Allergies Allergen Reactions Triple Antibiotic W/Hydrocortisone [Orowvur-Mmfiavzj-Pvxkzgqvn-Hc] Rash Codeine Other (See Comments) Knots on [...] Sexual activity: Defer Objective Vital Signs: BP 138/90 Pulse 111 Ht 185.4 cm (73 ) Wt 97.5 kg (215 lb) [id number]% BMI 28.37 kg/m?? Estimated body mass index is 28.37 kg/m?? as calculated from thefollowing: Height as of this encounter: 185.4 cm (73 ). Weight as of this encounter: 97.5 kg (215 lb). BMI is >= 25 and <30. (Overweight) The following options were offeredafter discussion;: exercise counseling/recommendations Physical Exam Constitutional: Appearance: Normal appearance. He is well-developed. HENT: Head: Normocephalic and atraumatic. Eyes: Pupils: Pupils are equal, round, and reactive to light. Neck: Vascular: No carotid bruit. Cardiovascular: Rate and Rhythm: Normal rate and regular rhythm. Rhythm irregular. Pulses: Normal pulses. Dorsalis pedis pulses are 2+ on the right side and 2+ on the leftside. Posterior tibial pulses are 2+ on the right side and 2+ on the leftside. Heart sounds: Normal heart sounds. No murmur heard. Pulmonary: Breath sounds: Normal breath sounds. No wheezing or rhonchi. Musculoskeletal: Right lower leg: No edema. Left lower leg: No edema. Skin: Capillary Refill: Capillary refill takes less than 2 seconds. Coloration: Skin is not cyanotic. Nails: There is no clubbing. Neurological: Mental Status: He is alert and oriented to person, place, and time. Motor: No weakness. Gait: Gait normal. Psychiatric: Mood and Affect: Mood normal. Behavior: Behavior is cooperative. Thought Content: Thought content normal. Cognition and Memory: Memory normal. ECG 12 Lead Date/Time: 12/10/2023 4:15 PM Performed by: Hannah Martinez APRN Authorized by: Hannah Martinez APRN Comparison: compared withprevious ECG Similar to previous ECG Rhythm: atrial fibrillation Rate: tachycardic BPM: 115 Other findings comments: Moderate ST depression. Clinical impression: abnormal EKG Assessment and Plan Diagnoses and all orders for this visit: 1. Atrial fibrillation, unspecified type (Primary) Assessment & Plan: Chronic atrial fibrillation. EKG today showed atrial fibrillation with arate of 115 bpm. He is currently asymptomatic. He just started ahigh-dose prednisone pack for in the acute gout flareup. He took 60 mg ofprednisone 2 hours prior to his visit today. He reports that his heartrate is usually within normal range. Patient is not currently on a beta-lorna due to previous issues withhypotension. -We will have patient return in 1 week after he completes prednisone andrepeat EKG prior to cardiac clearance. Orders: - ECG 12 Lead 2. Essential hypertension Assessment & Plan: BP is elevated today due to severe back pain. Repeat blood pressure priorto discharge was 138/90. He is also on high-dose prednisone pack at thistime. We will have him follow-up in 1 week to reassess heart rate andblood pressure after completing prednisone. 3. Coronary artery disease involving [place] heart without angina pectoris,unspecified vessel or lesion type Assessment & Plan: Left heart cath in 2019 showed noncritical coronary stenosis (25-50%distal LAD stenosis). Patient is currently asymptomatic. He denies chest pain or worseningshortness of breath. 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 - Continue Livalo at current dose. Recommendations: ER if symptoms increase and Report if any new/changingsymptoms immediately Follow Up Return in about 1 week (around 12/17/2023) for BP check, repeat EKG. . Patient was given instructions and counseling regarding his condition orfor health maintenance advice. Please see specific information pulled intothe AVS if appropriate. Hannah Martinez APRN ECG ORDERABLES Final Re sult documented in this encounter Visit Diagnoses Diagnosis Atrial fibrillation, unspecified type- Primary Essential hypertension Unspecified essential hypertension Coronary artery disease involving [place] heart without angina pectoris, unspecified vessel or lesion type documented in this encounter Care Teams Sandwich Board Carrier Relationship Specialty Start Date End Date Robinson Manley MD [address] [place] [address] PCP - General Family Medicine 07/09/23 documented as of this encounter
--- OUTSIDE RECORDS SUMMARY | 2024-09-29 14:38 | XMS_ITS | Encounter Summary ---
Author Organization [facility] ystem Address [address] [place] [address] Care Team Providers Care Latexer Name Role Phone Cathy Blancas PREPARED FOODS SUPERVISOR Primary Care Provider [phone]- [phone] Reason for Visit * Reason Onset Date Comments Med Refill 09/20/2022 Encounter Details Date Type Department Care Team (Late st Contact Info) Description 09/20/2022 Refill [facility] [address] [place] [address] [place] [phone] Cathy Blancas, RN Social History Tobacco Use Types Packs/Day Years Used Date Smoking Tobacco: Never Assessed Sex and Gender Information Value Date Recorded Sex Assigned at Not on file Legal Sex Male 1:15 PM EDT Gender Identity Not on file Sexual Orientation Not on file documented as of this encounter Miscellaneous Notes * Telephone Encounter - Lisa Guy MA - 09/20/2022 3:42 PM EST Sent in script documented in this encounter Plan of Treatment Upcoming Encounters Date Type Department Care Team (Late st Contact Info) Description 12/15/2024 8:30 AM EST Office Visit [facility] [address] [place] [phone] Hannah Martinez APRN [address] [place] [phone] 02/04/2025 9:00 AM EDT Office Visit [facility] NEUROLOGY [address] [facility] [address] [place] [address] Britany Braxton MD [address] [facility] [address] [place] [address] documented as of this encounter Visit Diagnoses Not on filedocumented in this encounter Care Teams Latexer Relationship Specialty Start Date End Date Cathy Blancas, PREPARED FOODS SUPERVISOR [address] [place] [address] PCP - General Family Medicine 09/20/22 02/12/23 documented as of this encounter
--- OUTSIDE RECORDS SUMMARY | 2024-09-29 14:38 | XMS_ITS | Encounter Summary ---
Author Organization [facility] yste Address [address] [place] [address] Care Team Providers Care Sales Route Driver Name Role Phone Cathy Blancas CASE SPECIALIST Primary Care Provider Reason for Visit * Reason Comments Med Refill Encounter Details Date Type Department Care Team (Late st Contact Info) Description 10/14/2022 Refill [facility] PRIMARY [facility] [address] [place] [address] [place] [phone] Cathy Blancas, CASE SPECIALIST [address] [place] [address] Social History Tobacco Use Types Packs/Day Years Used Date Smoking Tobacco: Never Assessed Sex and Gender Information Value Date Recorded Sex Assigned at Not on file Legal Sex Male 1:15 PM EDT Gender Identity Not on file Sexual Orientation Not on file documented as of this encounter Miscellaneous Notes * Telephone Encounter - Dannielle Zarate MA - 10/15/2022 8:59 AM EST Last seen on 06/07/22 rx sent documented in this encounter Plan of Treatment Upcoming Encounters Date Type Department Care Team (Late st Contact Info) Description 12/15/2024 8:30 AM EST Office Visit [facility] [address] [place] [phone] Hannah Martinez APRN [address] [place] [address] 02/04/2025 9:00 AM EDT Office Visit [facility] [address] [facility] [address] [place] [address] Britany Braxton MD [address] [facility] [address] [place] [address] documented as of this encounter Visit Diagnoses Not on filedocumented in this encounter Care Teams Sales Route Driver Relationship Specialty Start Date End Date Cathy Blancas APRN [address] [place] [address] PCP - General Family Medicine 09/20/22 02/12/23 documented as of this encounter
--- NOTE | 2024-09-29 15:50 | P.PN_ITS ---
Subjective *Date: 09/29/24 *Time: 16:54 Interval history: Patient feeling somewhat better this morning. Ambulating to bathroom on rounds. Nausea appears to have subsided. Still having some abdominal discomfort. Passing gas. Stable on room air. Discussed interventions, patient is clear that he does not want surgery. May be amenable to EGD if necessary. Medical Exam Vital signs and Labs for Last 24 Hours: Vital Signs Temp Pulse Pulse Resp BP BP Pulse Ox 09/29/24 13:00 09/29/24 11:00 09/29/24 09:00 09/29/24 08:00 09/29/24 08:00 98.1 F 88 18 127/82 97 09/29/24 06:40 09/29/24 05:00 09/29/24 04:00 97.5 F L 67 16 132/80 96 09/29/24 03:00 09/29/24 01:00 09/28/24 23:00 09/28/24 21:00 09/28/24 20:43 97.2 F L 72 18 138/80 93 L 09/28/24 20:36 98.3 F 82 20 161/93 H 09/28/24 20:27 82 18 93 L O2 Del Method 09/29/24 13:00 Room Air 09/29/24 11:00 Room Air 09/29/24 09:00 Room Air 09/29/24 08:00 Room Air 09/29/24 08:00 Room Air 09/29/24 06:40 Room Air 09/29/24 05:00 Room Air 09/29/24 04:00 Room Air 09/29/24 03:00 Room Air 09/29/24 01:00 Room Air 09/28/24 23:00 Room Air 09/28/24 21:00 Room Air 09/28/24 20:43 Room Air 09/28/24 20:36 Room Air 09/28/24 20:27 Room Air Intake and Output 09/28/24 09/29/24 09/29/24 23:59 07:59 15:59 Intake Total 1223 / 1223 Output Total 0 / 0 0 / 0 Balance 0 / 1223 1223 / 1223 Intake: Intake, Oral Amount 110 / 110 Infusion Intake 1113 / 1113 0.9 % Sodium Chloride 1000ML 1, 113 / 113 000 ml @ 100 mls/hr IV .Q10H [facility] Rx#:[id number] 0.9 % Sodium Chloride 1000ML 1, 1000 / 1000 000 ml @ 999 mls/hr IV .Q1H1M [facility] Rx#:[id number] Output: Output, Urine Amount 0 / 0 0 / 0 Other: Number of Unmeasured Voids 1 2 Weight 93.485 kg 93.468 kg Patient Weight 09/29/24 23:59 Weight 93.468 kg Laboratory Results - last 24 hr 09/28/24 16:55: VBG pH 7.40, VBG pCO2 32.6 L, VBG pO2 59.0 H, VBG HCO3 19.7 L, VBG Total CO2 20.7 L, VBG O2 Saturation 90.4 H, VBG Base Excess -5.1 L, VBG Lactic Acid 2.6 H 09/28/24 17:07: WBC 8.8, RBC 5.70, Hgb 16.8, Hct 48.4, MCV 84.9, MCH 29.5, MCHC 34.8, RDW 14.6, Plt Count 209, MPV 8.5, Neut % (Auto) 80.3 H, Lymph % (Auto) 14.1, [place] % (Auto) 4.7, Eos % (Auto) 0.5, Baso % (Auto) 0.4, Neut # (Auto) 7.0, Lymph # (Auto) 1.2, [place] # (Auto) 0.4, Eos # (Auto) 0.1, Baso # (Auto) 0.0, Sodium 139, Potassium 3.6, Chloride 106, Carbon Dioxide 22, Anion Gap 14.6, BUN 20, Creatinine 1.50 H, Estimated Creat Clear 57, Estimated GFR 45 L, Est GFR ( Amer) 55 L, Glucose 156 H, Calcium 9.1, Total Bilirubin 1.1, AST 33, ALT 62, Alkaline Phosphatase 117, Troponin I < 0.01, Total Protein 7.0, Albumin 4.0, Globulin 3.0, Albumin/Globulin Ratio 1.3, Lipase 210 09/28/24 22:30: Lactate 0.9, Troponin I < 0.01 09/29/24 01:40: Troponin I < 0.01 09/29/24 06:03: WBC 5.5 D, RBC 5.12, Hgb 15.0 D, Hct 44.9, MCV 87.5, MCH 29.2, MCHC 33.4, RDW 14.8, Plt Count 156 D, MPV 8.4, Neut % (Auto) 71.4, Lymph % (Auto) 19.3, [place] % (Auto) 7.3, Eos % (Auto) 1.3, Baso % (Auto) 0.7, Neut # (Auto) 3.9, Lymph # (Auto) 1.1, [place] # (Auto) 0.4, Eos # (Auto) 0.1, Baso # (Auto) 0.0, Sodium 140, Potassium 3.6, Chloride 108 H, Carbon Dioxide 24, Anion Gap 11.6, BUN 19, Creatinine 1.20, Estimated Creat Clear 67, Estimated GFR 59, Est GFR ( Amer) 71 D, Glucose 85 D, Calcium 8.2 L, Magnesium 1.7, Total Bilirubin 1.1, AST 89 H D, ALT 92 H D, Alkaline Phosphatase 130 H, Total Protein 5.9 L, Albumin 3.2 L D, Globulin 2.7, Albumin/Globulin Ratio 1.2, Lipase 194 I & O for Labs for Last 24 Hours: Intake & Output 09/26/24 09/27/24 09/28/24 09/29/24 23:59 23:59 23:59 23:59 Intake Total 1223 / 1223 Output Total 0 / 0 0 / 0 Balance 0 / 1223 1223 / 1223 Weight 93.485 kg 93.468 kg Constitutional: Present no acute distress, average body habitus, chronically ill appearing and cooperative Head: Present atraumatic and normocephalic Respiratory: Present normal respiratory effort; Absent respiratory distress, rhonchi, wheezes or crackles Cardiac: Present Reg Rate and Rhythm GI: Present soft, distention, tenderness (Nonfocal) and normal bowel sounds; Absent guarding or rebound Extremities: Present normal inspection and full ROM Skin: Present intact; Absent erythema Neuro: Present Grossly Intact, alert, awake, oriented x 3 and moves all extremities Assessment and Plan *Assessment and plan (1) Partial obstruction of small intestine: Status: Resolved Category: Medical Code(s): K56.600 - Partial intestinal obstruction, unspecified as to cause (2) Intractable nausea and vomiting: Status: Acute Category: Medical Code(s): R11.2 - Nausea with vomiting, unspecified (3) Afib: Status: Chronic Qualifiers: Atrial fibrillation type: paroxysmal Qualified Code(s): I48.0 - Paroxysmal atrial fibrillation Category: Medical Code(s): I48.91 - Unspecified atrial fibrillation (4) GERD (gastroesophageal reflux disease): Status: Chronic Qualifiers: Esophagitis presence: esophagitis presence not specified Qualified Code(s): K21.9 - Gastro-esophageal reflux disease without esophagitis Category: Medical Code(s): K21.9 - Gastro-esophageal reflux disease without esophagitis (5) Gastric lesion: Status: Acute Category: Medical Code(s): K31.9 - Disease of stomach and duodenum, unspecified (6) TUNDE (acute kidney injury): Status: Resolved Category: Medical Code(s): N17.9 - Acute kidney failure, unspecified Plan 79-year-old male with nausea vomiting and diarrhea. Recent admission with E. coli and partial small bowel obstruction. Presentation with similar symptoms. Workup in the ER concerning for acute kidney injury and partial bowel obstruction. Discussed case with ER physician, request admission for fluid resuscitation, treatment of TUNDE, medical management of bowel obstruction. I agreed to admit for further management. Patient hemodynamically stable on room air. Problems addressed as follows: Partial SBO - CT reviewed personally, has gaseous distention of small bowel, no clear transition point. Concern for partial obstruction. -Diagnosis with E. coli at last admission. -Discussed case with surgery, recommend small bowel follow-through with upper GI series. Continue conservative management of E. coli. Will consider advancing diet after imaging series - Continue Zofran 4 mg IV every 8 hours as needed -White count normal at 5.5, Hgb 15 Acute kidney injury - Slight elevation in kidney function with BUN 20, creatinine 1.5 on admission, improved to creatinine 1.2 this morning. -Repeat CBC, CMP, magnesium ordered for the morning Gastric polyp/lesion GERD -Continue famotidine 20 mg IV twice daily. - CT personally reviewed, shows almost 2 cm lesion in his stomach concerning for polyp. Would benefit from outpatient GI follow-up and EGD for more definitive workup and diagnosis; concerning for gastric cancer versus polyp. A-fib Chronic anticoagulation Hyperlipidemia Hypertension Mitral valve regurgitation -Follows with cardiology in [place]. On Xarelto 20 daily and, diltiazem 240 mg extended daily for rate/Blood pressure control, and pitavastatin 4 mg daily for cholesterol -Rate controlled at this time. Continue oral diltiazem. -Hold anticoagulation in the setting of evaluation by GI and surgery. Gout: Hold allopurinol and probenecid in the setting of n.p.o. DNR Full liquid diet Holding anticoagulation
[2024-09-29 16:00] VITALS: BP 147/82; PULSE 62; RESP 18; TEMP 36.4; O2SAT 95
--- NOTE | 2024-09-29 17:37 | PC.NURSE ---
no significant changes from previous shift. per kassie, VO for a full liquid diet. so far he is tolerating well no n/v/p. requesting iv to be wrapped so he can take a shower. pt had complaints of multiple loose bms this shift, md aware. nephew (POA) has been at bs all day. independent with ambulating. no needs at this time.
[2024-09-29 19:41] VITALS: BP 147/65; PULSE 76; RESP 18; TEMP 36.6; O2SAT 97
[2024-09-29 20:00] VITALS: PULSE 76; RESP 18; O2SAT 97
--- OUTSIDE RECORDS SUMMARY | 2024-09-29 20:57 | XMS_ITS | Clinical Summary ---
Author Organization [employer] Address [address] [place] [address] Care Team Providers Care Access Liaison Name Role Phone Unavailable Primary Care Provider [...]
--- OUTSIDE RECORDS SUMMARY | 2024-09-29 20:57 | XMS_ITS | Referral Summary ---
Author Organization [email or web address] Address [address] [place] [address] Care Team Providers Care Van Driver Name Role Phone Unavailable Primary Care [...]
--- OUTSIDE RECORDS SUMMARY | 2024-09-29 20:57 | XMS_ITS | Encounter Summary ---
Author Organization [employer] Address [address] [place] [address] Care Team Providers Care Trousseau Consultant Name Role Phone Unavailable Primary Care Provider Unavailabl e Encounter Details Date Type Department Care Team (Late st Contact Info) Description 11/16/2018 Transcribed Document [facility] [place] Family Medicine [address] [place] [address] ProviderHubert MD [facility] [place] [address] Social History Tobacco Use Types Packs/Day Years [...] - Historical ProviderMD - 11/16/2018 4:00 AM OPERATIONS VOCATIONAL INSTRUCTOR Height and Weight, Routine Entered On: 11/16/2018 5:11 EST Performed On: 11/16/2018 4:00 EST by Tonya Carrasquillo [facility] Unit Coord Height and Weight, Routine Routine Weight Source : Bed scale Routine Weight Entry Format : [place] Routine Weight, Pounds : 230 lb Routine Weight, Ounces : 4 oz Routine Weight Calculation : 104.66 kg Height Source : Chart Height Entry Format : [place] Height, Feet : 6 ft Height, Inches : 1 Inch Clinical Height : 185.42 cm Body Surface Area (BSA), Routine : 2.29 m2 Body Mass Index (BMI), Routine : 30.44 kg/m2 [facility] - 11/16/2018 5:11 EST documented in this encounter Plan of Treatment Not on file documented as of this encounter Visit Diagnoses Not on filedocumented in this encounter
--- OUTSIDE RECORDS SUMMARY | 2024-09-29 20:57 | XMS_ITS | Encounter Summary ---
Author Organization [employer] Address [address] [place] [address] Care Team Providers Care Data Center Project Manager Name Role Phone Unavailable Primary Care Provider Unavailabl e Encounter Details Date Type Department Care Team (Late st Contact Info) Description 11/16/2018 Transcribed Document [facility] [place] Family Medicine [address] [place], [place] [id number] ProviderHubert MD [address] [place] [address] Social History Tobacco Use Types Packs/Day Years [...] - Historical ProviderMD - 11/16/2018 5:00 AM LENS EXAMINER Chart Check - Review Order Profile Entered On: 11/16/2018 4:34 EST Performed On: 11/16/2018 5:00 EST by Dennise Garcia Rn Chart Check Chart Reviewed Date and Time : 11/16/2018 4:33 EST Powerplans Initiated/Discontinued as Appropriate : Yes All Active Orders Reviewed : Yes Dennise Garcia Rn - 11/16/2018 4:33 EST Electronically signed by Eyal [facility] Conversion Fashion Styling Intern Cerner at 02/28/2023 5:44 PM CDT documented in this encounter Plan of Treatment Not on file documented as of this encounter Visit Diagnoses Not on filedocumented in this encounter
--- OUTSIDE RECORDS SUMMARY | 2024-09-29 20:57 | XMS_ITS | Encounter Summary ---
Author Organization [employer] Address [address] [place] [address] Care Team Providers Care Clinical Operations Consultant Name Role Phone Unavailable Primary Care Provider Unavailabl e Encounter Details Date Type Department Care Team (Late st Contact Info) Description 11/18/2018 Transcribed Document [facility] [place] [address] [place] [address] ProviderHubert MD [address] [place] [id number] Social History Tobacco Use Types Packs/Day Years [...] - Hubert Provider, - 11/18/2018 2:17 PM BEAMING MACHINE OPERATOR [address] [place] [address] Patient Copy Patient Information: Name: MARILYN TERRELL Current Date: 11/18/2018 14:17:51 : 1945 Patient Address: [address] [address] Patient Attending Physician: HAKEEM LI MD Primary Care Provider: ALISSA PRAJAPATI (REF), -[facility] Primary Care Provider Discharge Diagnosis: Weight on Admission: 228 lb, 3 oz Weight at Discharge: 228 lb Comment: Follow-up Instructions: With: Address: When: MILY PAULSON [address], [place] [address] Business (1) 9:45 AM Discharge [...] can cause a heart attack (myocardial infarction, MS). Because CAD is the leading cause of [...] 05/25/2015 Document Revised: 04/04/2017 Document Reviewed: 03/01/2015 [employer] Interactive Patient Education ? 2017 [employer] Coronary Angiogram A coronary angiogram is [...] including vitamins, herbs, eye drops, creams, and vold-lea-ovuvglm medicines. ??? Any problems you or family [...] 05/03/2004 Document Revised: 08/09/2017 Document Reviewed: 08/09/2017 [employer] Interactive Patient Education ? 2017 [employer] Radial Site Care Introduction Refer to [...] including vitamins, herbs, eye drops, creams, and lmvu-njx-udggbxu medicines. ??? Previous problems you or members [...] 01/18/2004 Document Revised: 11/02/2014 Document Reviewed: 04/29/2014 [employer] Interactive Patient Education ? 2017 [employer] Electrical Cardioversion Electrical cardioversion is the [...] including vitamins, herbs, eye drops, creams, and mnmq-kxa-vtdtgnh medicines. ??? Any problems you or family [...] 10/18/2003 Document Revised: 06/26/2017 Document Reviewed: 05/03/2017 [employer] Interactive Patient Education ? 2017 [employer] Atrial Fibrillation Atrial fibrillation is a [...] ??? Certain heart rhythm disorders, such as Trgv-Orsgjypxm-Hkixb syndrome. Other causes include: ??? Pneumonia. ??? [...] 10/28/2006 Document Revised: 03/06/2017 Document Reviewed: 02/22/2016 [employer] Interactive Patient Education ? 2017 [employer]. Medication Leaflets: amiodarone (oral) (A mi [place] [...] may report side effects to FDA at 9-919-LPC-8464. What other drugs will affect amiodarone? Sometimes [...] can affect amiodarone. This includes prescription and biqs-weo-tzrejcj medicines, vitamins, and herbal products. Not all [...] to ensure that the information provided by [employer]. ('[employer]') is accurate, up-to-date, and complete, but no guarantee is made to that effect. Drug information contained herein may be time sensitive. [employer] information has been compiled for use by healthcare practitioners and consumers in the [place] and therefore [employer] does not warrant that uses outside of the [place] are appropriate, unless specifically indicated otherwise. [employer]'s drug information does not endorse drugs, diagnose patients or recommend therapy. [employer] drug information is an informational resource designed [...] effective or appropriate for any given patient. [employer] does not assume any responsibility for any aspect of healthcare administered with the aid of information [employer] provides. The information contained herein is not intended to cover all possible uses, directions, precautions, warnings, drug interactions, allergic reactions, or adverse effects. If you have questions about the drugs you are taking, check with your doctor, nurse or pharmacist. Copyright 9543-1235 [employer]. Version: 7.01. Revision Date: 09/16/2018. rivaroxaban (GEORGE [...] may report side effects to FDA at 5-056-XWM-1708. What other drugs will affect rivaroxaban? Sometimes it is not safe to use certain medications at the same time. Some drugs can affect your blood levels of other drugs you take, which may increase side effects or make the medications less effective. Other drugs may affect rivaroxaban, including prescription and ltcr-mnc-qjootnx medicines, vitamins, and herbal products. Tell your [...] to ensure that the information provided by [employer]. ('[employer]') is accurate, up-to-date, and complete, but no guarantee is made to that effect. Drug information contained herein may be time sensitive. [employer] information has been compiled for use by healthcare practitioners and consumers in the [place] and therefore [employer] does not warrant that uses outside of the [place] are appropriate, unless specifically indicated otherwise. [employer]'s drug information does not endorse drugs, diagnose patients or recommend therapy. [employer] drug information is an informational resource designed [...] effective or appropriate for any given patient. [employer] does not assume any responsibility for any aspect of healthcare administered with the aid of information [employer] provides. The information contained herein is not intended to cover all possible uses, directions, precautions, warnings, drug interactions, allergic reactions, or adverse effects. If you have questions about the drugs you are taking, check with your doctor, nurse or pharmacist. Copyright 3688-2746 [employer]. Version: 6.01. Revision Date: 09/03/2018. CIGARETTE SMOKING: The facts are clear, cigarette smoking will shorten your life. Smoking can cause many illnesses along the way. As a healthcare provider, we recommend that you stop smoking. Assistance with quitting is available by contacting 6-932-DEQZ-NOW. This is a free resource providing counseling, [...] sure to sign up for the My [email or web address] patient portal, which gives you 03/06 access to your medical information ??? including these discharge instructions ??? using your computer, smartphone, or tablet. Just go to [employer]is to get started. Questions? Call . [facility] would like to thank you for allowing us to assist you with your healthcare needs. I, MARILYN TERRELL, (or pharmacy services representative) have received the above patient education materials/instructions and have verbalized understanding: Patient Signature _ Date/Time Patient Farmworker Egg Producing Farm Signature (if needed) Date/Time Clinician/Hospital Farmworker Egg Producing Farm Signature (if needed) Date/Time documented in this encounter Plan of Treatment Not on file documented as of this encounter Visit Diagnoses Not on filedocumented in this encounter
--- OUTSIDE RECORDS SUMMARY | 2024-09-29 20:57 | XMS_ITS | Encounter Summary ---
Author Organization [employer] Address [address] [place] [address] Care Team Providers Care Nuclear Medical Tech Name Role Phone Unavailable Primary Care Provider Unavailabl e Encounter Details Date Type Department Care Team (Late st Contact Info) Description 11/18/2018 Transcribed Document [facility] [place] [address] [place] [address] ProviderHubert MD [address] [place] [id number] Social History Tobacco Use Types Packs/Day Years [...] - Hubert ProviderMD - 11/18/2018 12:52 PM MECHANICAL MAINTENANCE FOREMAN [address] [address] Patient Copy Patient Information: Name: MARILYN TERRELL Current Date: 11/18/2018 12:52:47 : 1945 Patient Address: [address] [address] Patient Attending Physician: HAKEEM LI MD Primary Care Provider: ALISSA PRAJAPATI (REF), -[facility] Primary Care Provider Discharge Diagnosis: Weight [...] Assistance with quitting is available by contacting 3-489-MSYD-NOW. This is a free resource providing counseling, [...] Be sure to sign up for the [employer] patient portal, which gives you 03/06 access to your medical information ??? including these discharge instructions ??? using your computer, smartphone, or tablet. Just go to [employer] to get started. Questions? Call . [facility] would like to thank you for allowing us to assist you with your healthcare needs. MEGHA Nguyen HAROLD, (or labor representative) have received the above patient education materials/instructions and have verbalized understanding: Patient Signature _ Date/Time Patient Licensed Physical Therapy Assistant Signature (if needed) Date/Time Clinician/Hospital Licensed Physical Therapy Assistant Signature (if needed) Date/Time documented in this encounter Plan of Treatment Not on file documented as of this encounter Visit Diagnoses Not on filedocumented in this encounter
--- OUTSIDE RECORDS SUMMARY | 2024-09-29 20:57 | XMS_ITS | Encounter Summary ---
Author Organization [employer] Address [address] [place] [address] Care Team Providers Care Physical Instructor Name Role Phone Unavailable Primary Care Provider Unavailabl e Encounter Details Date Type Department Care Team (Late st Contact Info) Description 11/16/2018 Transcribed Document [facility] [place] [address] [place], [place] [id number] ProviderHubert MD [place] [address] Social History Tobacco Use Types Packs/Day Years [...] - Historical Provider, - 11/16/2018 8:18 PM EDUCATION AND OUTREACH COORDINATOR RX Interventions Entered On: 11/16/2018 20:19 EST [...] 11/16/2018 20:18 EST Electronically signed by Eyal [facility] Conversion Production Team Member Cerner at 02/28/2023 5:39 PM CDT documented in this encounter Plan of Treatment Not on file documented as of this encounter Visit Diagnoses Not on filedocumented in this encounter
--- OUTSIDE RECORDS SUMMARY | 2024-09-29 20:57 | XMS_ITS | Encounter Summary ---
Author Organization [employer] Address [address] [place] [address] Care Team Providers Care Topstitcher Lockstitch Name Role Phone Unavailable Primary Care Provider Unavailabl e Encounter Details Date Type Department Care Team (Late st Contact Info) Description 11/15/2018 Transcribed Document [facility] [place] [address] [place] [address] ProviderHubert MD Replaced by [facility] [place], [place] [id number] Social History Tobacco Use Types Packs/Day Years [...] - Historical ProviderMD - 11/15/2018 6:33 PM ESCALATOR MECHANIC Patient: MARILYN TERRELL Age: 73 years Sex: Male : 1945 Associated Diagnoses: None Author: MARILYN MCKEON JR, PA-C Basic Information PCP: ALISSA PRAJAPATI (REF), -[facility] Mail Deliverer: Kyra Kidd Chief Complaint Chest pain History of Present Illness patient is a 73-year-old male with a PMH of abnormal stress test (refuse LHC recommended by his psychiatric technician assistant), PAF (refused Eliquis), HTN and HLD who presents as a transfer from [facility] with complaints of chest pain. Patient reports progressively worsening chest pain yesterday into today. He reported to [facility] ER for evaluation. In the ER he was found to be in A. fib with RVR was given diltiazem and stayed in A. fib but rate normalized. Troponin negative ??2. patient was put on amiodarone drip and transferred to [facility] for higher level of care. At [...] At risk for sleep apnea / IMO [id number] / Confirmed, Active Problems (1) At risk [...] of motion, Normal strength. Integumentary: Warm, Dry, [place]. Neurologic: Alert, Oriented. Psychiatric: Cooperative, Appropriate mood [...] months ago. Patient refused LHC recommended by Mail Deliverer. - Negative troponin x2 at OSH - [...] cath next wk. Electronically signed by Eyal, [facility] Conversion Hr Assistant Cerner at 02/28/2023 5:32 PM CDT documented in this encounter Plan of Treatment Not on file documented as of this encounter Visit Diagnoses Not on filedocumented in this encounter
--- OUTSIDE RECORDS SUMMARY | 2024-09-29 20:57 | XMS_ITS | Encounter Summary ---
Author Organization [facility] Address [address] [place] [address] Care Team Providers Care Laborer Prestressed Concrete Name Role Phone Unavailable Primary Care Provider Unavailabl e Encounter Details Date Type Department Care Team (Late st Contact Info) Description 11/15/2018 Transcribed Document [facility] [place] Family Medicine [address] [place] [address] ProviderHubert MD [facility] [place] [address] Social History Tobacco Use Types Packs/Day Years [...] - Historical Provider, - 11/15/2018 5:10 PM CLAY CARMAN Admission History, Adult Entered On: 11/16/2018 4:32 [...] Obtained From : Patient Primary Language : Macedonian Communication Barrier : None Dennise Garcia Rn [...] Scale Risk Level : 25-45 Medium Risk [place] Fall Interventions : Adequate lighting, Assistive devices [...] Source : Chart Height Entry Format : Bibb Height, Feet : 6 ft(Converted to: 183 cm, 72 Inch) Height, Inches : 1 Inch(Converted to: 0 ft 1 Inch, 2.54 cm) Clinical Height : 185.42 cm Weight Source : Bed scale Weight Entry Format : Bibb Clinical Dosing Weight : 103.73 kg Weight, Pounds : 228.2 lb Body Surface Area (BSA) : 2.28 m2 Body Mass Index : 30.2 kg/m2 (HI) [place] Body Weight : 79 kg Dennise Garcia [...] Any Spiritual/Cultural Needs or Requests : No Buddhism Preference : No rastafari Dennise Garcia Rn - 11/16/2018 4:29 EST [...]
--- OUTSIDE RECORDS SUMMARY | 2024-09-29 20:57 | XMS_ITS | Encounter Summary ---
Author Organization [employer] Address [address] [place] [address] Care Team Providers Care Front Of House Manager Name Role Phone Unavailable Primary Care Provider Unavailabl e Encounter Details Date Type Department Care Team (Late st Contact Info) Description 11/16/2018 Transcribed Document [facility] [place] Family Medicine [address] [place], [place] [id number] ProviderHubert MD [facility] [place] [address] Social History Tobacco Use Types Packs/Day Years [...] - Historical ProviderMD - 11/16/2018 8:25 AM ULTRASONIC TESTER Patient: MARILYN CLEVELAND Age: 73 years Sex: [...] Pain (Mild 1-3) Xarelto: 20 mg, Oral, [id number] Zofran: 4 mg, IV Push, Q4H, PRN: [...] mg tab 20 mg 1 Tab, Oral, [id number] Continuous: (2) amiodarone 450 mg + Dextrose [...] At risk for sleep apnea / IMO [id number] / Confirmed, Active Problems (1) At risk [...] of motion, Normal strength. Integumentary: Warm, Dry, [place]. Neurologic: Alert, Oriented. Psychiatric: Cooperative, Appropriate mood [...] 11/15/2018 19:52 Radiology Results (Last 48 hours) [id number] -- 11/15/2018 17:13 CR Chest 1 Vw [...]
--- OUTSIDE RECORDS SUMMARY | 2024-09-29 20:57 | XMS_ITS | Encounter Summary ---
Author Organization [employer] Address [address] [place] [address] Care Team Providers Care Mixing Machine Tender Cork Gasket Name Role Phone Unavailable Primary Care Provider Unavailabl e Encounter Details Date Type Department Care Team (Late st Contact Info) Description 11/16/2018 Transcribed Document [facility] [place] Family Medicine [address] [place] [address] ProviderHubert MD [address] [place] [address] Social History Tobacco Use Types Packs/Day Years [...] - Historical Provider, - 11/16/2018 2:00 AM MUSHROOM GROWING SUPERVISOR Denture Contour Wire Specialist Details Entered On: 11/16/2018 4:33 EST Performed [...] - 11/16/2018 4:33 EST Electronically signed by Daphne Birch Conversion Bilingual Speech Language Pathologist Cerner at 02/28/2023 5:34 PM CDT documented in this encounter Plan of Treatment Not on file documented as of this encounter Visit Diagnoses Not on filedocumented in this encounter
--- OUTSIDE RECORDS SUMMARY | 2024-09-29 20:57 | XMS_ITS | Encounter Summary ---
Author Organization [employer] Address [address] [place] [address] Care Team Providers Care Sales Record Clerk Name Role Phone Unavailable Primary Care Provider Unavailabl e Encounter Details Date Type Department Care Team (Late st Contact Info) Description 11/15/2018 Transcribed Document [facility] [place] [address] [place] [address] ProviderHubert MD [address] [place] [address] Social History Tobacco Use Types Packs/Day Years [...] - Historical Provider, - 11/15/2018 6:13 PM PROCESSING CLERK Consult Phone Call Documentation Entered On: 11/15/2018 18:22 EST Performed On: 11/15/2018 18:15 EST by AppirioNHAN Phone Call for Consults Consult Phone Call/Page Attempt : First call Consult Reason : Called in the Stat CAK consult to Dr. Pickens on 11/15/18 at 2828 to [phone] AppirioRAYSAAlona - 11/15/2018 18:21 EST Electronically signed by [facility], [facility] Conversion Audiometric Technician Cerner at 02/28/2023 5:33 PM CDT documented in this encounter Plan of Treatment Not on file documented as of this encounter Visit Diagnoses Not on filedocumented in this encounter
--- OUTSIDE RECORDS SUMMARY | 2024-09-29 20:57 | XMS_ITS ---
Laboratory report Created on: September 29, 2024 MARILYN CLEVELAND : 1945 Sex: Male Author Organization Unknown PROBLEMS Problems List Code Description RESULTS Laboratory Orders Date Order Code Test 2024-09-23 [id number] HCV ANTIBODY RFX TO QUANT PCR Laboratory Results Date LOINC Test Value Unit Reference Range Interpre tation 2024-09-23 [id number] HCV AB NR NON REACTIVE
--- OUTSIDE RECORDS SUMMARY | 2024-09-29 20:57 | XMS_ITS | Encounter Summary ---
Author Organization [employer] Address [address] [place] [address] Care Team Providers Care Animal Rehabilitator Name Role Phone Unavailable Primary Care Provider Unavailabl e Encounter Details Date Type Department Care Team (Late st Contact Info) Description 11/17/2018 Transcribed Document [facility] [place] [address] [place], [place] [id number] ProviderHubert MD [facility], [facility] [place] [address] Social History Tobacco Use Types Packs/Day Years [...] - Historical ProviderMD - 11/17/2018 5:00 AM MACHINE STUFFER Chart Check - Review Order Profile Entered [...]
--- OUTSIDE RECORDS SUMMARY | 2024-09-29 20:57 | XMS_ITS | Encounter Summary ---
Author Organization [email or web address] Address [address] [place] [address] Care Team Providers Care Wrap Turner Name Role Phone Unavailable Primary Care Provider Unavailabl e Encounter Details Date Type Department Care Team (Late st Contact Info) Description 11/16/2018 Transcribed Document [facility] [place] [address] [place] [address] ProviderHubert MD [address] [place] [address] Social History Tobacco Use Types Packs/Day Years [...] - Historical Provider, - 11/16/2018 2:45 PM PRINT SHOP ASSISTANT Therapy Screen, PT Entered On: 11/16/2018 14:46 [...] 11/16/2018 14:45 EST Electronically signed by Eyal [facility] Conversion Electric System Operator Cerner at 02/28/2023 5:32 PM CDT documented in this encounter Plan of Treatment Not on file documented as of this encounter Visit Diagnoses Not on filedocumented in this encounter
--- OUTSIDE RECORDS SUMMARY | 2024-09-29 20:57 | XMS_ITS | Encounter Summary ---
Author Organization [employer] Address [address] [place] [address] Care Team Providers Care First Assist Name Role Phone Unavailable Primary Care Provider Unavailabl e Encounter Details Date Type Department Care Team (Late st Contact Info) Description 11/18/2018 Transcribed Document [facility] [place] [address] [place], [place] [id number] ProviderHubert MD [address] [place] [address] Social History Tobacco Use Types Packs/Day Years [...] - Historical Provider, - 11/18/2018 1:00 PM DIRECTOR HEMATOLOGY Nursing Discharge Summary Entered On: 11/18/2018 13:00 [...]
--- OUTSIDE RECORDS SUMMARY | 2024-09-29 20:57 | XMS_ITS | Encounter Summary ---
Author Organization [employer] Address [address] [place] [address] Care Team Providers Care Scrum Coach Name Role Phone Unavailable Primary Care Provider Unavailabl e Encounter Details Date Type Department Care Team (Late st Contact Info) Description 11/18/2018 Transcribed Document [facility] [place] [address] [place] [address] ProviderHubert MD [address] [place] [id number] Social History Tobacco Use Types Packs/Day Years [...] - Hubert ProviderMD - 11/18/2018 12:54 PM SOA ARCHITECT [address] [address] Patient Copy Patient Information: Name: MARILYN TERRELL Current Date: 11/18/2018 12:54:25 : 1945 Patient Address: [address] [address] Patient Attending Physician: HAKEEM LI MD Primary Care Provider: ALISSA PRAJAPATI (REF), -[facility] Primary Care Provider Discharge Diagnosis: Weight [...] Assistance with quitting is available by contacting 1-040-OEHP-NOW. This is a free resource providing counseling, [...] Be sure to sign up for the [employer] patient portal, which gives you 03/06 access to your medical information ??? including these discharge instructions ??? using your computer, smartphone, or tablet. Just go to [employer] to get started. Questions? Call . [facility] would like to thank you for allowing us to assist you with your healthcare needs. MEGHA Nguyen HAROLD, (or business services representative) have received the above patient education materials/instructions and have verbalized understanding: Patient Signature _ Date/Time Patient Paintings Conservator Signature (if needed) Date/Time Clinician/Hospital Paintings Conservator Signature (if needed) Date/Time documented in this encounter Plan of Treatment Not on file documented as of this encounter Visit Diagnoses Not on filedocumented in this encounter
--- OUTSIDE RECORDS SUMMARY | 2024-09-29 20:57 | XMS_ITS | Encounter Summary ---
Author Organization [email or web address] Address [address] [place] [address] Care Team Providers Care House Visitor Name Role Phone Unavailable Primary Care Provider Unavailabl e Encounter Details Date Type Department Care Team (Late st Contact Info) Description 11/16/2018 Transcribed Document [facility] [place] [address] [place] [address] ProviderHubert MD [facility] [place] [address] Social History Tobacco Use Types Packs/Day Years [...] - Historical Provider, - 11/16/2018 2:[address] [facility] PT Charges Entered On: 11/16/2018 14:46 EST Performed On: 11/16/2018 14:45 EST by KIMBERLY ESPINOZA, PT [facility] PT Charges Physical Therapy Screen : 1 KIMBERLY ESPINOZA, PT - 11/16/2018 14:45 EST Electronically signed by Daphne Birch Conversion Exceptional Student Education Teacher Cerner at 02/28/2023 5:43 PM CDT documented in this encounter Plan of Treatment Not on file documented as of this encounter Visit Diagnoses Not on filedocumented in this encounter
--- OUTSIDE RECORDS SUMMARY | 2024-09-29 20:57 | XMS_ITS | Encounter Summary ---
Author Organization [employer] Address [address] [place] [address] Care Team Providers Care Security Site Supervisor Name Role Phone Unavailable Primary Care Provider Unavailabl e Encounter Details Date Type Department Care Team (Late st Contact Info) Description 11/20/2018 Transcribed Document [facility] [place] Family Medicine [address] [place] [address] ProviderHubert MD [facility] [place] [address] Social History Tobacco Use Types Packs/Day Years [...] - Historical Provider, - 11/20/2018 12:19 PM WOOD FILLER Post Visit Phone Call Entered On: 11/20/2018 12:19 EST Performed On: 11/20/2018 12:19 EST by KAYDEN MCLEAN, RN Post Visit Phone Call Post Visit Phone Call History : First call, Second call, No answer KAYDEN MCLEAN, RN - 11/20/2018 12:19 EST Electronically signed by Eyal [facility] Conversion Senior Software Qa Engineer Cerner at 02/28/2023 5:36 PM CDT documented in this encounter Plan of Treatment Not on file documented as of this encounter Visit Diagnoses Not on filedocumented in this encounter
--- OUTSIDE RECORDS SUMMARY | 2024-09-29 20:57 | XMS_ITS | Encounter Summary ---
Author Organization [employer] Address [address] [place] [address] Care Team Providers Care Field Organizer Name Role Phone Unavailable Primary Care Provider Unavailabl e Encounter Details Date Type Department Care Team (Late st Contact Info) Description 11/15/2018 Transcribed Document [facility] [place] [address] [place] [address] ProviderHubert MD [address] [place] [address] Social History Tobacco Use Types Packs/Day Years [...] - Historical ProviderMD - 11/15/2018 5:49 PM CURB BUILDER Consult Phone Call Documentation Entered On: 11/15/2018 18:22 EST Performed On: 11/15/2018 17:49 EST by NHAN GIORDANO Phone Call for Consults Consult Phone Call/Page Attempt : First call NHAN GIORDANO - 11/15/2018 18:22 EST Electronically signed by Donnell Birch Conversion Landfill Gas Collection System Operator Cerner at 02/28/2023 5:48 PM CDT documented in this encounter Plan of Treatment Not on file documented as of this encounter Visit Diagnoses Not on filedocumented in this encounter
--- OUTSIDE RECORDS SUMMARY | 2024-09-29 20:57 | XMS_ITS | Encounter Summary ---
Author Organization [employer] Address [address] [place] [address] Care Team Providers Care Rn Surgery Name Role Phone Unavailable Primary Care Provider Unavailabl e Encounter Details Date Type Department Care Team (Late st Contact Info) Description 11/21/2018 Transcribed Document [facility] [place] [address] [place] [address] ProviderHubert MD [facility] [place] [address] Social History Tobacco Use Types Packs/Day Years [...] - Historical Provider, - 11/21/2018 10:11 AM NURSE CHARGE RN Post Visit Phone Call Entered On: 11/21/2018 [...] 11/21/2018 10:11 EST Electronically signed by Eyal [facility] Conversion General Farm Manager Cerner at 02/28/2023 5:46 PM CDT documented in this encounter Plan of Treatment Not on file documented as of this encounter Visit Diagnoses Not on filedocumented in this encounter
--- OUTSIDE RECORDS SUMMARY | 2024-09-29 20:57 | XMS_ITS | Encounter Summary ---
Author Organization [employer] Address [address] [place] [address] Care Team Providers Care Store Sales Consultant Name Role Phone Unavailable Primary Care Provider Unavailabl e Encounter Details Date Type Department Care Team (Late st Contact Info) Description 11/15/2018 Transcribed Document [facility] Radiology [address] [place] [address] Luis Eduardo Belcher MD [address] [place] [address] [place] [address] Social History Tobacco Use Types Packs/Day Years [...] fibrillation with RVR presents to outside facility [facility] with chest pain started 2:30 AM the middle of his chest 8 / 10 only improved with IV morphine at the outside facility. No fevers or chills. No nausea vomiting. No diarrhea constipation. No dysuria hematuria. The ER at the outside facility discussed patient Dr. Drew Pickens and request the patient be transferred to [facility] by cardiology and admitted by the internal [...] 73-year-old gentleman transferred from the hospital in [facility] to [facility] in [place] for cardiology consult. Does have substernal chest [...] PRN Xarelto, 20 mg, 1 Tab, Oral, [id number] Zofran, 4 mg, 2 mL, IV Push, [...] of 13, hemoglobin of 17, platelets 256, [place] of 22, creatinine is 1.4, blood sugar of 161. Troponin is less than 0.04. Chest x-ray negative. Diagnostic Results Radiology Results (Last 48 hours) [id number] -- 11/15/2018 17:13 CR Chest 1 Vw Portable (11/15/2018 18:26) Result: Single view chestINDICATION: Chest painFINDINGS:The lungs are clear. The cardiac silhouette is mildly enlarged..IMPRESSION: No acute abnormality documented in this encounter Plan of Treatment Not on file documented as of this encounter Visit Diagnoses Not on filedocumented in this encounter
--- OUTSIDE RECORDS SUMMARY | 2024-09-29 20:57 | XMS_ITS | Encounter Summary ---
Author Organization [employer] Address [address] [place] [address] Care Team Providers Care Biofuels Production Manager Name Role Phone Unavailable Primary Care Provider Unavailabl e Encounter Details Date Type Department Care Team (Late st Contact Info) Description 11/15/2018 Transcribed Document [facility] [place] [address] [place] [address] ProviderHubert MD [facility] [place] [address] Social History Tobacco Use Types Packs/Day Years [...] - Historical Provider, - 11/15/2018 6:13 PM PUBLIC WEIGHER Care Management Assessment/Plan Entered On: 11/18/2018 11:22 EST Performed On: 11/18/2018 11:20 EST by EMEKA GAFFNEY RN Care Management Note Documentation Status Complete : Yes EMEKA GAFFNEY RN - 11/18/2018 11:20 EST Patient History Information Obtained from, Care Mgt : Patient, Medical Record Current Primary Care Physician : Hoang Foreman Durable Power of Bulk Tank Car Unloader Name : Yes Medical Power of Bulk Tank Car Unloader Copy to be Obtained from : Tay [...] Services and Community Resources : None EMEKA GAFFNEY, RN - 11/18/2018 11:20 EST Electronically signed by Eyal [facility] Conversion Clam Sorter Cerner at 02/28/2023 5:34 PM CDT documented in this encounter Plan of Treatment Not on file documented as of this encounter Visit Diagnoses Not on filedocumented in this encounter
--- OUTSIDE RECORDS SUMMARY | 2024-09-29 20:57 | XMS_ITS | Encounter Summary ---
Author Organization [employer] Address [address] [place] [address] Care Team Providers Care Building Superintendent Name Role Phone Unavailable Primary Care Provider Unavailabl e Encounter Details Date Type Department Care Team (Late st Contact Info) Description 11/17/2018 Transcribed Document [facility] [place] [address] [place] [address] ProviderHubert MD [address] [place] [address] Social History Tobacco Use Types Packs/Day Years [...] - Historical Provider, - 11/17/2018 2:00 AM SCANNER OPERATOR Striper Details Entered On: 11/17/2018 5:20 EST Performed [...]
--- OUTSIDE RECORDS SUMMARY | 2024-09-29 20:57 | XMS_ITS | Encounter Summary ---
Author Organization [email or web address] Address [address] [place] [address] Care Team Providers Care Top Icer Name Role Phone Unavailable Primary Care Provider Unavailabl e Encounter Details Date Type Department Care Team (Late st Contact Info) Description 11/18/2018 Transcribed Document [facility] [place] Family Medicine [address] [place] [address] ProviderHubert MD [address] [place] [address] [id number] Social History Tobacco Use Types Packs/Day Years [...] - Hubert Provider, - 11/18/2018 1:01 PM SUPERINT[employer]ENT [employer] [address] [place] [address] Patient Copy Patient Information: Name: MARILYN TERRELL Current Date: 11/18/2018 13:01:13 : 1945 Patient Address: [address] [address] Patient Attending Physician: HAKEEM LI MD Primary Care Provider: ALISSA PRAJAPATI (REF), -[facility] Primary Care Provider Discharge Diagnosis: Weight on Admission: 228 lb, 3 oz Weight at Discharge: 228 lb Comment: Follow-up Instructions: With: Address: When: MILY PAULSON [address], [place] [address] Business (1) 9:45 AM Discharge [...] can cause a heart attack (myocardial infarction, [place]). Because CAD is the leading cause of [...] 05/25/2015 Document Revised: 04/04/2017 Document Reviewed: 03/01/2015 [employer] Interactive Patient Education ? 2017 [employer] Coronary Angiogram A coronary angiogram is [...] including vitamins, herbs, eye drops, creams, and surx-tor-ieiigjo medicines. ??? Any problems you or family [...] 05/03/2004 Document Revised: 08/09/2017 Document Reviewed: 08/09/2017 [employer] Patient Education ? 2017 [employer] Radial Site Care Introduction Refer to [...] including vitamins, herbs, eye drops, creams, and nazy-fkx-njaicwl medicines. ??? Previous problems you or members [...] 01/18/2004 Document Revised: 11/02/2014 Document Reviewed: 04/29/2014 [employer] Interactive Patient Education ? 2017 [employer] Electrical Cardioversion Electrical cardioversion is the [...] including vitamins, herbs, eye drops, creams, and dsqy-uyp-ugxqwpy medicines. ??? Any problems you or family [...] 05/03/2017 Else[employer] Interactive Patient Education ? 2017 [employer] Atrial Fibrillation Atrial fibrillation is a [...] ??? Certain heart rhythm disorders, such as Vgxe-Ecammfsov-Ixmdd syndrome. Other causes include: ??? Pneumonia. ??? [...] 10/28/2006 Document Revised: 03/06/2017 Document Reviewed: 02/22/2016 [employer] Interactive Patient Education ? 2017 [employer]. Medication Leaflets: amiodarone (oral) (A mi [place] [...] may report side effects to FDA at 1-727-TOD-7083. What other drugs will affect amiodarone? Sometimes [...] can affect amiodarone. This includes prescription and kfpj-wgg-wvmktns medicines, vitamins, and herbal products. Not all [...] to ensure that the information provided by [employer]. ('[employer]') is accurate, up-to-date, and complete, but no guarantee is made to that effect. Drug information contained herein may be time sensitive. [employer] information has been compiled for use by healthcare practitioners and consumers in the [place] and therefore [employer] does not warrant that uses outside of the [place] are appropriate, unless specifically indicated otherwise. [employer]'s drug information does not endorse drugs, diagnose patients or recommend therapy. [employer] drug information is an informational resource designed [...] effective or appropriate for any given patient. [employer] does not assume any responsibility for any aspect of healthcare administered with the aid of information [employer] provides. The information contained herein is not intended to cover all possible uses, directions, precautions, warnings, drug interactions, allergic reactions, or adverse effects. If you have questions about the drugs you are taking, check with your doctor, nurse or pharmacist. Copyright 8476-5679 [employer]. Version: 7.01. Revision Date: 09/16/2018. rivaroxaban (GEORGE [...] may report side effects to FDA at 9-722-HAI-1425. What other drugs will affect rivaroxaban? Sometimes it is not safe to use certain medications at the same time. Some drugs can affect your blood levels of other drugs you take, which may increase side effects or make the medications less effective. Other drugs may affect rivaroxaban, including prescription and arce-xae-luhuqlm medicines, vitamins, and herbal products. Tell your [...] to ensure that the information provided by [employer] ('[employer]') is accurate, up-to-date, and complete, but no guarantee is made to that effect. Drug information contained herein may be time sensitive. [employer] information has been compiled for use by healthcare practitioners and consumers in the [place] and therefore [employer] does not warrant that uses outside of the [place] are appropriate, unless specifically indicated otherwise. [employer] drug information does not endorse drugs, diagnose patients or recommend therapy. [facility] drug information is an informational resource designed [...] effective or appropriate for any given patient. [employer] does not assume any responsibility for any aspect of healthcare administered with the aid of information [employer] provides. The information contained herein is not intended to cover all possible uses, directions, precautions, warnings, drug interactions, allergic reactions, or adverse effects. If you have questions about the drugs you are taking, check with your doctor, nurse or pharmacist. Copyright 1734-6908 [employer]. Version: 6.01. Revision Date: 09/03/2018. CIGARETTE SMOKING: The facts are clear, cigarette smoking will shorten your life. Smoking can cause many illnesses along the way. As a healthcare provider, we recommend that you stop smoking. Assistance with quitting is available by contacting 3-434-FIYS-NOW. This is a free resource providing counseling, [...] Be sure to sign up for the [employer] patient portal, which gives you 03/06 access to your medical information ??? including these discharge instructions ??? using your computer, smartphone, or tablet. Just go to [employer] to get started. Questions? Call . [facility] would like to thank you for allowing us to assist you with your healthcare needs. Wendy, MARILYN TERRELL, (or event representative) have received the above patient education materials/instructions and have verbalized understanding: Patient Signature _ Date/Time Patient Nursery Technician Signature (if needed) Date/Time Clinician/Hospital Nursery Technician Signature (if needed) Date/Time documented in this encounter Plan of Treatment Not on file documented as of this encounter Visit Diagnoses Not on filedocumented in this encounter
--- OUTSIDE RECORDS SUMMARY | 2024-09-29 20:57 | XMS_ITS | Encounter Summary ---
[facility] Organization [facility] Address [address] [place] [address] Care Team Providers Care Marine Engine Driver Name Role Phone Robinson Manley MD Primary Care Provider [phone] Reason for Visit * Reason Comments Atrial Fibrillation Follow-up Encounter Details Date Type Department Care Team (Late st Contact Info) Description 06/16/2024 8:30 AM EDT Office Visit [facility] C[facility] [address] [place] [address] Hannah Martinez, MACHINE HAMPER MAKER [address] [place] [address] Longstanding persistent atrial fibrillation (Primary Dx); Coronary artery disease involving [place] heart without angina pectoris, unspecified vessel or lesion type; Nonrheumatic mitral valve regurgitation; Essential hypertension Social History Tobacco Use Types Packs/Day Years Used Date Smoking Tobacco: Former Cigarettes Q uit: 1974 Passive Smoke Exposure: Past Smokeless Tobacco: Never Alcohol Use Standard Drinks/Week Comments Yes 0 (1 standard drink = 0.6 oz pur e alcohol) BEER PER [facility] Utilities Answer Date Recorded In the past 12 months has [employer], gas, oil, or water [employer] threatened to shut off services in your [...] or training? Not on file Preferred Language Nicaraguan 01/03/2024 Sex and Gender Information Value Date [...] AM EDTAssociated Problem(s): Coronary artery disease involving [place] heart without angina pectoris Left heart cath [...] 59%. Moderate mitral valve regurgitation. Normal [facility]SP. [facility] 11/17/18- Non-critical coronary stenosis. (25-50% distal LAD stenosis) Reports Denies Chest Pain [] [x] Shortness of Air [] [x] Palpitations [] [x] Edema [] [x] Dizziness [] [x] Syncope [] [x] Allergies Allergen Reactions Triple Antibiotic W/Hydrocortisone [Hnfztae-Jexdequx-Zapcmjnar-Hc] Rash Codeine Other (See Comments) Knots on [...] MG/0.1ML nasal spray, Call 911. Don't prime. [place] in 1 nostril for overdose. Repeat in [...] LAMINECTOMY L3-4; Surgeon: Hank Guzman MD; Location: [facility]; Service: Neurosurgery; Laterality: N/A; SHOULDER ARTHROSCOPY Right [...] current doses 2. Coronary artery disease involving [place] heart without angina pectoris, unspecified vessel or [...] Description 12/15/2024 8:30 AM EST Office Visit [facility] [address] [place] [phone] Hannah Martinez APRN [address] [place] [id number] 02/04/2025 9:00 AM EDT Office Visit [facility] [address] [facility] [address] [place] [address] Britany Braxton MD [address] [facility] [address] [place] [address] documented as of this encounter Visit Diagnoses Diagnosis Longstanding persistent atrial fibrillation- Primary Coronary artery disease involving [place] heart without angina pectoris, unspecified vessel or lesion type Nonrheumatic mitral valve regurgitation Essential hypertension Unspecified essential hypertension documented in this encounter Care Teams Marine Engine Driver Relationship Specialty Start Date End Date Robinson Manley MD [address] [place] [address] PCP - General Family Medicine 07/09/23 documented as of this encounter
--- OUTSIDE RECORDS SUMMARY | 2024-09-29 20:57 | XMS_ITS | Encounter Summary ---
Author Organization [employer] Address [address] [place] [address] Care Team Providers Care Bridal Gown Fitter Name Role Phone Unavailable Primary Care Provider Unavailabl e Encounter Details Date Type Department Care Team (Late st Contact Info) Description 11/16/2018 Transcribed Document [facility] [place] Family Medicine [facility] [place] [address] ProviderHubert MD [facility] [place], [place] [address] Social History Tobacco Use Types Packs/Day Years [...] - Historical ProviderMD - 11/16/2018 12:02 PM REEL AND REWINDER OPERATOR Patient: MARILYN TERRELL Age: 73 Years Sex: [...] and request the patient be transferred to [facility] to be seen by cardiology and admitted by the internal medicine group. [facility] recommended several months ago but patient refused [...] Significant Findings Radiology Results (Last 48 hours) [id number] -- 11/15/2018 17:13 CR Chest 1 Vw [...] and follow up with PCM and outpatient adhesive sprayer. Continue oral loading amiodarone and follow up with cardiology or PCM for dose adjustment. Atherosclerotic heart disease of [place] coronary artery without angina pectoris I25.10, Atherosclerotic heart disease of [place] coronary artery without angina pectoris I25.10 Discharge [...] mg/dL 11/16/2018 02:23 Glucose Level 127 mg/dL [place] 11/16/2018 02:23 Calcium Level 8.3 mg/dL LOW 11/16/2018 02:23 Creatinine Level 1.10 mg/dL 11/16/2018 02:23 Cardiac Markers (Current Encounter/Past 24 Hours) CK MB <1.00 ng/mL 11/16/2018 02:37 CK 61 Units/Liter 11/16/2018 02:37 ProBNP 493 pg/mL [place] 11/15/2018 19:52 CMP Results (Current Encounter/Past 24 [...] 97 Units/Liter 11/16/2018 02:23 ALT 92 Units/Liter NH 11/16/2018 02:23 AST 57 Units/Liter NH 11/16/2018 02:23 Blood Urea Nitrogen 22 mg/dL 11/16/2018 02:23 Glucose Level 127 mg/dL [place] 11/16/2018 02:23 Albumin Level 2.9 Gram/dL LOW [...]
--- OUTSIDE RECORDS SUMMARY | 2024-09-29 20:57 | XMS_ITS | Encounter Summary ---
Author Organization [employer] Address [address] [place] [address] Care Team Providers Care Laborer Demolition Name Role Phone Unavailable Primary Care Provider Unavailabl e Encounter Details Date Type Department Care Team (Late st Contact Info) Description 11/19/2018 Transcribed Document [facility] [place] [address] [place], [place] [id number] ProviderHubert MD [facility] [place] [address] Social History Tobacco Use Types Packs/Day Years [...] - Historical ProviderMD - 11/19/2018 3:18 PM TRUCK MECHANIC Post Visit Phone Call Entered On: 11/19/2018 15:19 EST Performed On: 11/19/2018 15:18 EST by Lavern Birmingham Rn Post Visit Phone Call Post Visit Phone Call History : First call, Left message Lavern Birmingham Rn - 11/19/2018 15:18 EST documented in this encounter Plan of Treatment Not on file documented as of this encounter Visit Diagnoses Not on filedocumented in this encounter
--- OUTSIDE RECORDS SUMMARY | 2024-09-29 20:57 | XMS_ITS | Encounter Summary ---
Author Organization [employer] Address [address] [place] [address] Care Team Providers Care Senior Software Quality Engineer Name Role Phone Unavailable Primary Care Provider Unavailabl e Encounter Details Date Type Department Care Team (Late st Contact Info) Description 11/15/2018 Historic Encounter [facility] 1 [place] [address] ProviderBuddy Historical Social History Tobacco [...] Associated Diagnosis Comments CBC W/ AUTO DIFF ([facility] DATA CONV) Routine 11/18/2018 12:33 AM EST AUTOMATED DIFFERENTIAL ([facility] DATA CONV) Routine 11/18/2018 12:33 AM EST BMP BASIC METABOLIC PANEL ([facility] DATA CONV) Routine 11/18/2018 12:33 AM EST PTT HEPARIN PROTOCOL Routine 11/17/2018 6:08 AM EST PTT HEPARIN PROTOCOL Routine 11/17/2018 2:39 AM EST CBC W/ AUTO DIFF ([facility] DATA CONV) Routine 11/16/2018 8:28 PM EST AUTOMATED DIFFERENTIAL ([facility] DATA CONV) Routine 11/16/2018 8:28 PM EST PT/INR PROTHROMBIN TIME ([facility] DATA CONV) Routine 11/16/2018 8:28 PM EST PTT HEPARIN PROTOCOL Routine 11/16/2018 8:28 PM EST CKMB ([facility] DATA CONV) Routine 11/16/2018 11:46 AM EST CKMB ([facility] DATA CONV) Routine 11/16/2018 1:51 AM EST CK CREATINE KINASE ([facility] DATA CONV) Routine 11/16/2018 1:51 AM EST CBC W/ AUTO DIFF ([facility] DATA CONV) Routine 11/16/2018 1:51 AM EST AUTOMATED DIFFERENTIAL ([facility] DATA CONV) Routine 11/16/2018 1:51 AM EST MAGNESIUM LEVEL ([facility] DATA CONV) Routine 11/16/2018 1:51 AM EST CMP COMPREHENSIVE METABOLIC PANEL ([facility] DATA CONV) Routine 11/16/2018 1:51 AM EST TROPONIN I ULTRA ([facility] DATA CONV) Routine 11/16/2018 1:51 AM EST LIPID PANEL Routine 11/16/2018 1:51 AM EST XR CHEST 1 VIEW PORTABLE / BEDSIDE STAT 11/15/2018 7:13 PM EST PROBNP ([facility] DATA CONV Routine 11/15/2018 7:13 PM EST CKMB ([facility] DATA CONV) Routine 11/15/2018 6:41 PM EST CK CREATINE KINASE ([facility] DATA CONV) Routine 11/15/2018 6:41 PM EST CBC W/ AUTO DIFF ([facility] DATA CONV) Routine 11/15/2018 6:41 PM EST AUTOMATED DIFFERENTIAL ([facility] DATA CONV) Routine 11/15/2018 6:41 PM EST MAGNESIUM LEVEL ([facility] DATA CONV) Routine 11/15/2018 6:41 PM EST BMP BASIC METABOLIC PANEL ([facility] DATA CONV) Routine 11/15/2018 6:41 PM EST TROPONIN I ULTRA ([facility] DATA CONV) Routine 11/15/2018 6:41 PM EST TSH Routine 11/15/2018 6:41 PM EST MRSA SCREEN Routine 11/15/2018 5:37 PM EST documented in this encounter Results * CBC W/ AUTO DIFF ([facility] DATA CONV) (11/18/2018 12:33 AM EST) [...] AM EST 11/18/2018 5:36 AM EST Narrative [facility] - 11/18/2018 5:41 AM EST while on Heparin [facility] Historical Provider LAB BLOOD ORDERABLES Fi nal Result [facility] 1 [place] [address], [facility] [phone] * (ABNORMAL) AUTOMATED DIFFERENTIAL ([facility] DATA CONV) (11/18/2018 12:33 AM EST) Neut% 74.4(H) 34.0 - 71.0 % 11/18/2018 5:39 AM EST Lymph% 14.7(L) 19.3 - 53.1 % 11/18/2018 5:39 AM EST Mccormick% 8.8 3.0 - 9.0 % 11/18/2018 5:39 AM EST Eos% 0.9 0.0 - 7.0 % 11/18/2018 5:39 AM EST Baso% 0.5 0.0 - 1.5 % 11/18/2018 5:39 AM EST IG% 0.70(H) 0.00 - 0.60 % 11/18/2018 5:39 AM EST Neut# 6.54(H) 1.56 - 6.13 K/uL 11/18/2018 5:39 AM EST Lymph# 1.29 1.00 - 3.90 x10(3)/uL 11/18/2018 5:39 AM EST Mccormick# 0.77 0.16 - 1.00 K/uL 11/18/2018 5:39 AM EST Eos# 0.08 0.00 - 0.80 x10(3)/uL 11/18/2018 5:39 AM EST Baso# 0.04 0.00 - 0.20 x10(3)/uL 11/18/2018 5:39 AM EST IG# 0.06(H) 0.00 - 0.05 x10(3)/uL 11/18/2018 5:39 AM EST Blood 11/18/2018 12:3 3 AM EST 11/18/2018 5:36 AM EST Narrative [facility] - 11/18/2018 5:41 AM EST Added by Discern Expert us [facility] Historical Provider LAB BLOOD ORDERABLES Fi nal Result [facility] 1 [place], [place] [address] [phone] * (ABNORMAL) BMP BASIC METABOLIC PANEL ([facility] DATA CONV) (11/18/2018 12:33 AM EST) Glucose Level 123(H) 74 - 106 mg/dL 11/18/2018 6:22 AM EST Comment: [employer] has become aware of sulfasalazine and sulfapyridine [...] 3 AM EST 11/18/2018 5:36 AM EST [facility] Historical Provider LAB BLOOD ORDERABLES Fi nal Result Performing Organization Address City/[facility] Co de Phone Number [facility] [address] [phone] * (ABNORMAL) PTT Heparin Protocol (11/17/2018 6:08 AM EST) PTT Heparin 42.9(L) 45.0 - 65.0 Second(s) 11/17/2018 11:56 AM EST Blood 11/17/2018 6:08 AM EST 11/17/2018 11:40 AM EST [facility] Provider LAB BLOOD ORDERABLES Fi nal Result Performing Organization Address [facility] Co de Phone Number [facility] [address] [phone] * (ABNORMAL) PTT Heparin Protocol (11/17/2018 2:39 AM EST) PTT Heparin 169.7(AA) 45.0 - 65.0 Second(s) 11/17/2018 8:24 AM EST Comment: CALLED TO:Sagrario Bradford DATE/TIME CALLED:11/17/2018 03:24:43 EST READ BACK AND VERIFIED:Yes CALLED BY: YSABEL Blood 11/17/2018 2:39 AM EST 11/17/2018 7:55 AM EST [facility] Historical Provider MD LAB BLOOD ORDERABLES Final Result Performing Organization Address [facility] [place]/[facility] Co de Phone Number [facility] [address] [phone] * PT/INR PROTHROMBIN TIME ([facility] DATA CONV) (11/16/2018 8:28 PM EST) [...] 8:28 PM EST 11/17/2018 2:01 AM EST [facility] Historical Provider LAB BLOOD ORDERABLES Fi nal Result [facility] [address] [place] [address] * (ABNORMAL) CBC W/ AUTO DIFF ([facility] DATA CONV) (11/16/2018 8:28 PM EST) [...] 8:28 PM EST 11/17/2018 2:01 AM EST [facility] Historical Provider LAB BLOOD ORDERABLES Fi nal Result Performing Organization Address City/[facility]/ZIP Co de Phone Number [facility] [address] [phone] * (ABNORMAL) PTT Heparin Protocol (11/16/2018 8:28 PM EST) PTT Heparin 32.7(L) 45.0 - 65.0 Second(s) 11/17/2018 2:16 AM EST Blood 11/16/2018 8:28 PM EST 11/17/2018 2:01 AM EST [facility] Provider LAB BLOOD ORDERABLES Fi nal Result Performing Organization Address [facility] [place]/[facility] Co de Phone Number [facility] [address] [phone] * (ABNORMAL) AUTOMATED DIFFERENTIAL ([facility] DATA CONV) (11/16/2018 8:28 PM EST) Neut% 74.3(H) 34.0 - 71.0 % 11/17/2018 2:03 AM EST Lymph% 15.3(L) 19.3 - 53.1 % 11/17/2018 2:03 AM EST Mccormick% 9.0 3.0 - 9.0 % 11/17/2018 2:03 AM EST Eos% 0.6 0.0 - 7.0 % 11/17/2018 2:03 AM EST Baso% 0.3 0.0 - 1.5 % 11/17/2018 2:03 AM EST IG% 0.50 0.00 - 0.60 % 11/17/2018 2:03 AM EST Neut# 7.81(H) 1.56 - 6.13 K/uL 11/17/2018 2:03 AM EST Lymph# 1.61 1.00 - 3.90 x10(3)/uL 11/17/2018 2:03 AM EST Mccormick# 0.95 0.16 - 1.00 K/uL 11/17/2018 2:03 AM EST Eos# 0.06 0.00 - 0.80 x10(3)/uL 11/17/2018 2:03 AM EST Baso# 0.03 0.00 - 0.20 x10(3)/uL 11/17/2018 2:03 AM EST IG# 0.05 0.00 - 0.05 x10(3)/uL 11/17/2018 2:03 AM EST Blood 11/16/2018 8:28 PM EST 11/17/2018 2:01 AM EST Narrative [facility] - 11/17/2018 2:05 AM EST Added by Discern Expert [facility] Provider LAB BLOOD ORDERABLES Fi nal Result Performing Organization Address [facility] [place]/[facility]/ZIP Co de Phone Number [facility] [address] [phone] * CKMB ([facility] DATA CONV) (11/16/2018 11:46 AM EST) CKMB <1.00 0.50 - 3.60 ng/mL 11/16/2018 5:32 PM EST Comment: CK-MB of > 5.0 ng/ml with a relative index of > 3.4 is highly suggestive of a myocardial infarction. [employer] has become aware of sulfasalazine and sulfapyridine [...] 6 AM EST 11/16/2018 4:53 PM EST [facility] Provider LAB BLOOD ORDERABLES Fi nal Result Performing Organization Address City/[facility]/ZIP Co de Phone Number [facility] [address] [phone] * (ABNORMAL) AUTOMATED DIFFERENTIAL ([facility] DATA CONV) (11/16/2018 1:51 AM EST) Neut% 76.9(H) 34.0 - 71.0 % 11/16/2018 6:58 AM EST Lymph% 13.5(L) 19.3 - 53.1 % 11/16/2018 6:58 AM EST Mccormick% 8.7 3.0 - 9.0 % 11/16/2018 6:58 AM EST Eos% 0.3 0.0 - 7.0 % 11/16/2018 6:58 AM EST Baso% 0.2 0.0 - 1.5 % 11/16/2018 6:58 AM EST IG% 0.40 0.00 - 0.60 % 11/16/2018 6:58 AM EST Neut# 9.12(H) 1.56 - 6.13 K/uL 11/16/2018 6:58 AM EST Lymph# 1.60 1.00 - 3.90 x10(3)/uL 11/16/2018 6:58 AM EST Mccormick# 1.03(H) 0.16 - 1.00 K/uL 11/16/2018 6:58 AM EST Eos# 0.04 0.00 - 0.80 x10(3)/uL 11/16/2018 6:58 AM EST Baso# 0.02 0.00 - 0.20 x10(3)/uL 11/16/2018 6:58 AM EST IG# 0.05 0.00 - 0.05 x10(3)/uL 11/16/2018 6:58 AM EST Blood 11/16/2018 1:51 AM EST 11/16/2018 6:55 AM EST Narrative [facility] - 11/16/2018 7:07 AM EST Added by Discern Expert us [facility] Historical Provider LAB BLOOD ORDERABLES Fi nal Result [facility] 1 [place] [address], [facility] [phone] * CKMB ([facility] DATA CONV) (11/16/2018 1:51 AM EST) CKMB <1.00 0.50 - 3.60 ng/mL 11/16/2018 7:36 AM EST Comment: CK-MB of > 5.0 ng/ml with a relative index of > 3.4 is highly suggestive of a myocardial infarction. [employer] has become aware of sulfasalazine and sulfapyridine [...] 1:51 AM EST 11/16/2018 7:20 AM EST [facility] Historical Provider LAB BLOOD ORDERABLES [facility] Result [facility] [address] [phone] * (ABNORMAL) CMP COMPREHENSIVE METABOLIC PANEL ([facility] DATA CONV) (11/16/2018 1:51 AM EST) [...] 106 mg/dL 11/16/2018 7:23 AM EST Comment: [employer] has become aware of sulfasalazine and sulfapyridine [...] Units/Lit er 11/16/2018 7:23 AM EST Comment: [employer] has become aware of sulfasalazine and sulfapyridine [...] Units/Lit er 11/16/2018 7:23 AM EST Comment: [employer] has become aware of sulfasalazine and sulfapyridine [...] 1:51 AM EST 11/16/2018 7:08 AM EST [facility] Provider LAB BLOOD ORDERABLES Fi nal Result Performing Organization Address City/[facility]/ZIP Co de Phone Number [facility] [address] [phone] * MAGNESIUM LEVEL ([facility] DATA CONV) (11/16/2018 1:51 AM EST) Magnesium Level 2.0 1.5 - 2.4 mg/dL 11/16/2018 7:23 AM EST Blood 11/16/2018 1:51 AM EST 11/16/2018 7:08 AM EST [facility] Provider LAB BLOOD ORDERABLES Fi nal Result Performing Organization Address City/[facility]/ZIP Co de Phone Number [facility] [address] [phone] * TROPONIN I ULTRA ([facility] DATA CONV) (11/16/2018 1:51 AM EST) TroponinI Ultra <0.015 0.015 - 0.045 ng/mL 11/16/2018 7:24 AM EST Comment: Troponin Result (ng/ml) Interpretation 0.015 ? 0.045 Normal >0.045 Exceeds 99th percentile of normal range. Risk of future myocardial infarcts increases with concentration >0.599 Critical value Blood 11/16/2018 1:51 AM EST 11/16/2018 7:08 AM EST [facility] Historical Provider LAB BLOOD ORDERABLES Fi nal Result Performing Organization Address City/[facility]/ZIP Co de Phone Number [facility] [address] [phone] * (ABNORMAL) LIPID PANEL (11/16/2018 1:51 AM [...] 1:51 AM EST 11/16/2018 7:08 AM EST [facility] Historical Provider PATHOLOGY/CYTOLOGY ORDE RABLES Final Result [facility] [address] [phone] * (ABNORMAL) CBC W/ AUTO DIFF ([facility] DATA CONV) (11/16/2018 1:51 AM EST) [...] 1:51 AM EST 11/16/2018 6:55 AM EST [facility] Provider LAB BLOOD ORDERABLES Fi nal Result [facility] [address] [place] [address] * CK CREATINE KINASE ([facility] DATA CONV) (11/16/2018 1:51 AM EST) CK 61 39 - 308 Units/Liter 11/16/2018 7:36 AM EST Blood 11/16/2018 1:51 AM EST 11/16/2018 7:20 AM EST [facility] Provider LAB BLOOD ORDERABLES Fi nal Result Performing Organization Address [facility] [place]/State/ZIP Co de Phone Number [facility] [address] [phone] * XR chest 1 view portable / [...] is mildly enlarged.. IMPRESSION: No acute abnormality [facility] Historical Provider IMG DIAGNOSTIC IMAGING ORDERABLES Final Result * (ABNORMAL) PROBNP ([facility] DATA CONV (11/15/2018 7:13 PM EST) ProBNP 493(H) 0 - 125 pg/mL 11/16/2018 12:36 AM EST Blood 11/15/2018 7:13 PM EST 11/16/2018 1:00 AM EST [facility] Historical Provider LAB BLOOD ORDERABLES Fi nal Result Performing Organization Address City/State/[facility] Co de Phone Number [facility] [address] [phone] * (ABNORMAL) AUTOMATED DIFFERENTIAL ([facility] DATA CONV) (11/15/2018 6:41 PM EST) Neut% 80.6(H) 34.0 - 71.0 % 11/16/2018 12:03 AM EST Lymph% 10.0(L) 19.3 - 53.1 % 11/16/2018 12:03 AM EST Mccormick% 8.5 3.0 - 9.0 % 11/16/2018 12:03 AM EST Eos% 0.2 0.0 - 7.0 % 11/16/2018 12:03 AM EST Baso% 0.2 0.0 - 1.5 % 11/16/2018 12:03 AM EST IG% 0.50 0.00 - 0.60 % 11/16/2018 12:03 AM EST Neut# 10.69(H) 1.56 - 6.13 K/uL 11/16/2018 12:03 AM EST Lymph# 1.33 1.00 - 3.90 x10(3)/uL 11/16/2018 12:03 AM EST Mccormick# 1.12(H) 0.16 - 1.00 K/uL 11/16/2018 12:03 AM EST Eos# 0.02 0.00 - 0.80 x10(3)/uL 11/16/2018 12:03 AM EST Baso# 0.02 0.00 - 0.20 x10(3)/uL 11/16/2018 12:03 AM EST IG# 0.06(H) 0.00 - 0.05 x10(3)/uL 11/16/2018 12:03 AM EST Blood 11/15/2018 6:41 PM EST 11/16/2018 12:01 AM EST Narrative [facility] - 11/16/2018 12:03 AM EST Added by Discern Expert [facility] Provider LAB BLOOD ORDERABLES Fi nal Result Performing Organization Address [facility] [place]/[facility]/ZIP Co de Phone Number [facility] [address] [place] [address] * CK CREATINE KINASE ([facility] DATA CONV) (11/15/2018 6:41 PM EST) CK 74 39 - 308 Units/Liter 11/16/2018 12:25 AM EST Blood 11/15/2018 6:41 PM EST 11/16/2018 12:01 AM EST [facility] Provider LAB BLOOD ORDERABLES Fi nal Result Performing Organization Address [facility] [place]/[facility]/ZIP Co de Phone Number [facility] [address] [place] [address] * [facility]MB ([facility] DATA CONV) (11/15/2018 6:41 PM EST) CKMB <1.00 0.50 - 3.60 ng/mL 11/16/2018 12:30 AM EST Comment: CK-MB of > 5.0 ng/ml with a relative index of > 3.4 is highly suggestive of a myocardial infarction. [employer] has become aware of sulfasalazine and sulfapyridine [...] 6:41 PM EST 11/16/2018 12:01 AM EST [facility] Historical Provider LAB BLOOD ORDERABLES Fi nal Result [facility] [address] [phone] * (ABNORMAL) BMP BASIC METABOLIC PANEL ([facility] DATA CONV) (11/15/2018 6:41 PM EST) Glucose Level 113(H) 74 - 106 mg/dL 11/16/2018 12:29 AM EST Comment: [employer] has become aware of sulfasalazine and sulfapyridine [...] 6:41 PM EST 11/16/2018 12:01 AM EST [facility] Provider LAB BLOOD ORDERABLES Fi nal Result Performing Organization Address City/[facility] Co de Phone Number [facility] [address] [phone] * MAGNESIUM LEVEL ([facility] DATA CONV) (11/15/2018 6:41 PM EST) Magnesium Level 2.0 1.5 - 2.4 mg/dL 11/16/2018 12:29 AM EST Blood 11/15/2018 6:41 PM EST 11/16/2018 12:01 AM EST [facility] Provider LAB BLOOD ORDERABLES Fi nal Result Performing Organization Address [facility] [place]/[facility]/ZIP Co de Phone Number [facility] [address] [phone] * TSH (11/15/2018 6:41 PM EST) TSH 1.110 0.358 - 3.740 mcInt Units/mL 11/16/2018 12:29 AM EST Blood 11/15/2018 6:41 PM EST 11/16/2018 12:01 AM EST [facility] Provider LAB BLOOD ORDERABLES Fi nal Result Performing Organization Address City/[facility]/ZIP Co de Phone Number [facility] [address] [phone] * TROPONIN I ULTRA ([facility] DATA CONV) (11/15/2018 6:41 PM EST) Pathologist [facility] TroponinI Ultra <0.015 0.015 - 0.045 ng/mL 11/16/2018 12:24 AM EST Comment: Troponin Result (ng/ml) Interpretation 0.015 ? 0.045 Normal >0.045 Exceeds 99th percentile of normal range. Risk of future myocardial infarcts increases with concentration >0.599 Critical value Blood 11/15/2018 6:41 PM EST 11/16/2018 12:01 AM EST [facility] Historical Provider LAB BLOOD ORDERABLES Fi nal Result [facility] [address] [phone] * (ABNORMAL) CBC W/ AUTO DIFF ([facility] DATA CONV) (11/15/2018 6:41 PM EST) [facility] WBC 13.2(H) 4.2 - 9.1 K/uL [...] 6:41 PM EST 11/16/2018 12:01 AM EST [facility] Historical Provider LAB BLOOD ORDERABLES Fi nal Result Performing Organization Address City/[facility]/ZIP Co de Phone Number [facility] [address] [phone] * MRSA Screen (11/15/2018 5:37 PM EST) Final No MRSA isolated For Infection Control surveillance only. Final Nasal 11/15/2018 5:37 PM EST 11/16/2018 3:08 PM EST Narrative [facility] - 11/17/2018 3:55 PM EST Order entered secondary to documenting Active Surveillance Screen Positive. [facility] Historical Provider MICROBIOLOGY - GENERAL ORDERABLES Final Result Performing Organization Address City/[facility]/ZIP Co de Phone Number [facility] [address] [phone] documented in this encounter Visit Diagnoses Not on filedocumented in this encounter
--- OUTSIDE RECORDS SUMMARY | 2024-09-29 20:57 | XMS_ITS | Clinical Summary ---
[facility] Organization [facility] Address [address] [place] [address] Care Team Providers Care Upholstery Trimmer Name Role Phone Robinson Manley MD Primary Care Provider [phone] Allergies Active Allergy Reactions Criticality Noted Date Comments Codeine Other (See Comments) Low 11/28/2023 Knots on my head Iwboqil-Aofpwnzt-Pwq ymyxin-Hc Rash Medium 01/07/2023 Medications omeprazole (priLOSEC) [...] MG/0.1ML nasal spray Call 911. Don't prime. [place] in 1 nostril for overdose. Repeat in [...] from PCP Coronary artery disease invo lving [place] heart without angina pectoris 01/07/2023 Assessment & [...] oz pur e alcohol) BEER PER [facility] Utilities Answer Date Recorded In the past 12 months has [employer], gas, oil, or water [employer] threatened to shut off services in your [...] or training? Not on file Preferred Language Emirati 01/03/2024 Sex and Gender Information Value Date [...] Description 12/15/2024 8:30 AM EST Office Visit [facility] [address] [place] [phone] Hannah Martinez APRN [address] [address] 02/04/2025 9:00 AM EDT Office Visit [facility] [address] [facility] [address] [place] [address] Britany Braxton MD [address] [facility] [address] [place] [address] Health Maintenance Due Date Last [...] 02/18/2024, 12/10/2023 Medical Devices Implanted Type Area Diabetes Specialist Device Identifier Shelf Expiration Date Model / Serial / Lot Wax Bone Hemo Aesculap 2.5gm - [id number] Implanted:Qty : 1 on 01/01/2024 by Hank Guzman MD at [facility] Implant N/A: Spine Lumbar [employer] A [employer] CO [id number] / / Kt Seal Hemos Abs Floseal Matrx Fast/Prep 10ml - [id number] Implanted:Qty : 1 on 01/01/2024 by Hank Guzman MD at [facility] Implant N/A: Spine Lumbar [facility] [id number] / / Insurance [facility] MEDICARE ADVANTAGE Advance Directives Documents on File Type Date Recorded Patient Idea Worker Expl anation POWER OF DIGITAL ASSOCIATE - SCAN 01/02/2024 11:29 AM POWER OF DIGITAL ASSOCIATE FO R HEALTH CARE, [facility], 07/07/2018 LIVING WILL - SCAN 01/02/2024 11:26 AM ANSHUL ING WILL/HEALTH CARE SURROGATE, [facility], 07/07/2018 POWER OF DIGITAL ASSOCIATE - SCAN 01/01/2024 10:45 AM POA 2023 [...] or is breathing): Full Support Care Teams Upholstery Trimmer Relationship Specialty Start Date End Date Robinson Manley MD [address] [place] [address] PCP - General Family Medicine 07/09/23
--- OUTSIDE RECORDS SUMMARY | 2024-09-29 20:57 | XMS_ITS | Encounter Summary ---
Author Organization [employer] Address [address] [place] [address] Care Team Providers Care Product Manager Medical Device Name Role Phone Unavailable Primary Care Provider Unavailabl e Encounter Details Date Type Department Care Team (Late st Contact Info) Description 11/18/2018 Transcribed Document [facility] [address] [place] [address] ProviderHubert MD [address] [place] [address] Social History Tobacco Use Types Packs/Day Years [...] - Historical ProviderMD - 11/18/2018 1:00 PM PIGGERY WORKER Discharge Instructions Entered On: 11/18/2018 13:01 EST [...]
--- OUTSIDE RECORDS SUMMARY | 2024-09-29 20:57 | XMS_ITS | Encounter Summary ---
Author Organization [employer] Address [address] [place] [address] Care Team Providers Care Railroad Car Repair Supervisor Name Role Phone Unavailable Primary Care Provider Unavailabl e Encounter Details Date Type Department Care Team (Late st Contact Info) Description 11/15/2018 Transcribed Document [facility] [address] [place] [address] ProviderHubert [place] [address] Social History Tobacco Use Types Packs/Day Years [...] - Historical Provider, - 11/15/2018 5:25 PM AGRICULTURAL RESEARCH ENGINEER Admission History, Adult Entered On: 11/15/2018 [...] Primary Language : Kuwaiti Communication Barrier : Raisa Rajput Rn - [...] Scale Risk Level : 25-45 Medium Risk [place] Fall Interventions : Adequate lighting, Assistive devices [...] Source : Chart Height Entry Format : [place] Height, Feet : 6 ft(Converted to: 183 cm, 72 Inch) Height, Inches : 1 Inch(Converted to: 0 ft 1 Inch, 2.54 cm) Clinical Height : 185.42 cm Weight Source : Bed scale Weight Entry Format : [place] Clinical Dosing Weight : 103.73 kg Weight, Pounds : 228.2 lb Body Surface Area (BSA) : 2.28 m2 Body Mass Index : 30.2 kg/m2 (HI) [place] Body Weight : 79 kg Raisa Redman [...] Any Spiritual/Cultural Needs or Requests : No Protestant Preference : No restorationism Raisa Redman Rn - 11/15/2018 17:25 EST [...]
--- OUTSIDE RECORDS SUMMARY | 2024-09-29 20:57 | XMS_ITS | Encounter Summary ---
Author Organization [employer] Address [address] [place] [address] Care Team Providers Care Manager Commercial Name Role Phone Unavailable Primary Care Provider Unavailabl e Encounter Details Date Type Department Care Team (Late st Contact Info) Description 11/17/2018 Transcribed Document [facility] [place] Family Medicine [address] [place] [address] ProviderHubert MD [address] [place], [place] [id number] Social History Tobacco Use Types Packs/Day Years [...] - Historical ProviderMD - 11/17/2018 8:20 PM COMPUTER REPAIR INSTRUCTOR Patient: MARILYN CLEVELAND Age: 73 years Sex: [...]
--- OUTSIDE RECORDS SUMMARY | 2024-09-29 20:57 | XMS_ITS | Encounter Summary ---
Author Organization [employer] Address [address] [place] [address] Care Team Providers Care Supervisor Delivery Department Name Role Phone Unavailable Primary Care Provider Unavailabl e Encounter Details Date Type Department Care Team (Late st Contact Info) Description 11/18/2018 Transcribed Document [facility] [place] [address] [place], [place] [id number] ProviderHubert MD [facility] [place], [place] [id number] Social History Tobacco Use Types Packs/Day Years [...] - Historical ProviderMD - 11/18/2018 2:17 PM PARTY HOST/HOSTESS Patient Education Materials Follows: Coronary Artery Disease, Male Coronary artery disease (CAD) is a process in which the blood vessels of the heart (coronary arteries) become narrow or blocked. The narrowing or blockage can lead to decreased blood flow to the heart muscle (angina). Prolonged reduced blood flow can cause a heart attack (myocardial infarction, SC). Because CAD is the leading cause of [...] 05/25/2015 Document Revised: 04/04/2017 Document Reviewed: 03/01/2015 [employer] Interactive Patient Education ? 2017 [employer] Emergency Medicine Electrical Cardioversion Electrical cardioversion is [...] including vitamins, herbs, eye drops, creams, and wklu-xgk-yjqgjsf medicines. ??? Any problems you or family [...] 10/18/2003 Document Revised: 06/26/2017 Document Reviewed: 05/03/2017 [employer] Interactive Patient Education ? 2017 [employer] Atrial Fibrillation Atrial fibrillation is a [...] ??? Certain heart rhythm disorders, such as Rkxh-Mpfxseupc-Gaizm syndrome. Other causes include: ??? Pneumonia. ??? [...] 10/28/2006 Document Revised: 03/06/2017 Document Reviewed: 02/22/2016 [employer] Interactive Patient Education ? 2017 [employer] Pulmonary Medicine Radial Site Care Introduction [...] including vitamins, herbs, eye drops, creams, and vsqp-olw-kxtfdys medicines. ??? Any problems you or family [...] 08/09/2017 Elsevier Interactive Patient Education ? 2017 [employer] Transesophageal Echocardiogram Transesophageal echocardiography (DAVY) is [...] including vitamins, herbs, eye drops, creams, and rqqq-gpd-tmnbmwx medicines. ??? Previous problems you or members [...] 01/18/2004 Document Revised: 11/02/2014 Document Reviewed: 04/29/2014 [employer] Interactive Patient Education ? 2017 [employer] documented in this encounter Plan of Treatment Not on file documented as of this encounter Visit Diagnoses Not on filedocumented in this encounter
--- OUTSIDE RECORDS SUMMARY | 2024-09-29 20:57 | XMS_ITS | Encounter Summary ---
Author Organization [employer] Address [address] [place] [address] Care Team Providers Care Geodetic Survey Director Name Role Phone Unavailable Primary Care Provider Unavailabl e Encounter Details Date Type Department Care Team (Late st Contact Info) Description 11/17/2018 Transcribed Document [facility] [place] [address] [place] [address] ProviderHubert MD [address] [place] [address] Social History Tobacco Use Types Packs/Day Years [...] - Historical Provider, - 11/17/2018 9:14 PM RICE MILLING SUPERVISOR Spiritual Care Short Form Entered On: 11/17/2018 21:16 EST Performed On: 11/17/2018 21:14 EST by Blake Aldana Chaplain General Information, Spiritual Care Spiritual Care Referred by : Wildlife Ecology Professor initiated Reason for Visit : Initial Ministry Provided to : Patient, Visitor Intervention/Comment/Summary Points : Rounding visit with patient and a friend of his. Robust conversation about various topics which all led to humorous stories. 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 Congregation Preference : No jainism Blake Aldana Chaplain - 11/17/2018 21:14 EST documented in this encounter Plan of Treatment Not on file documented as of this encounter Visit Diagnoses Not on filedocumented in this encounter
--- OUTSIDE RECORDS SUMMARY | 2024-09-29 20:57 | XMS_ITS | Encounter Summary ---
Author Organization [employer] Address [address] [place] [address] Care Team Providers Care Toll Repairer Central Office Name Role Phone Unavailable Primary Care Provider Unavailabl e Encounter Details Date Type Department Care Team (Late st Contact Info) Description 11/18/2018 Transcribed Document [facility] [place] [address] [place], [place] [id number] ProviderHubert MD [address] [place] [address] Social History Tobacco Use Types Packs/Day Years [...] - Historical Provider, - 11/18/2018 11:29 AM SAFE DEPOSIT BOX RENTAL CLERK Care Management Assessment/Plan Entered On: 11/18/2018 11:33 EST Performed On: 11/18/2018 11:29 EST by EMEKA GAFFNEY, RN Care Management Note Care Management Note : Transfer from [facility] with chest pain and atrial fibrillation. consult with Cardiology. S/P DAVY. EF = 50% . S/P cardiac catheterization - medical management. Pt lives alone. Independent with ADLs. 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 Plan is home with family support Documentation Status Complete : Yes EMEKA GAFFNEY, TRUDI - 11/18/2018 11:29 EST Patient History Current Primary Care Physician : Hoang Foreman Durable Power of Ship Loader Name : Yes Medical Power of Ship Loader Copy to be Obtained from : Tay [...]
--- OUTSIDE RECORDS SUMMARY | 2024-09-29 20:57 | XMS_ITS | Encounter Summary ---
Author Organization [employer] Address [address] [place] [address] Care Team Providers Care Senior Software Engineer Name Role Phone Unavailable Primary Care Provider Unavailabl e Encounter Details Date Type Department Care Team (Late st Contact Info) Description 11/18/2018 Transcribed Document [facility] Cardiology [address] [facility] [address] [place] [address] Luis Eduardo Suárez MD [address] [facility] [address] [place] [address] Social History Tobacco Use Types [...] Pain (Mild 1-3) Xarelto: 20 mg, Oral, [id number] Zofran: 4 mg, IV Push, Q4H, PRN: [...] of motion, Normal strength. Integumentary: Warm, Dry, [place]. Neurologic: Alert, Oriented. Psychiatric: Cooperative, Appropriate mood & affect. Results Review Telemetry NOV 18 00:33 140 110 22 / H 123 3.9 25 1.24 \ NOV 18 00:33 \ 13.9 / 8.8 222 / 42.9 \ Impression and Plan IMPRESSION: * Chest pain. - Abnormal Stress Test five months ago. [facility] 11/17/18--> non critical CAD - Echo (11-29) EF 50%, mild RV dysfunction, valves OK. - Negative troponin x2 at OSH - EKG: A fib. 99 BPM ? duration (not certain if paroxysmal or persistent)/initially Dx months ago. Refused DOAC previously - [facility] 11/17/18 ; Non-ciritical coronary stenosis * HTN [...]
--- OUTSIDE RECORDS SUMMARY | 2024-09-29 20:57 | XMS_ITS | Encounter Summary ---
Author Organization [facility] Address [address] [place] [address] Care Team Providers Care Multiple Knife Edge Trimmer Operator Name Role Phone Robinson Manley MD Primary Care Provider [phone] Reason for Visit * Reason Comments Post-op Encounter Details Date Type Department Care Team (Late st Contact Info) Description 04/02/2024 9:30 AM EDT Office Visit [facility] [address] [place] [address] Kenna Manley, PANéstorC [address] [facility] [address] [place] [id number] S/P lumbar laminectomy (Primary Dx) Social History Tobacco Use Types Packs/Day Years Used Date Smoking Tobacco: Former Cigarettes Q uit: 1974 Passive Smoke Exposure: Past Smokeless Tobacco: Never Tobacco Cessation:Counseling Given: Not Answered Alcohol Use Standard Drinks/Week Comments Yes 0 (1 standard drink = 0.6 oz pur e alcohol) BEER PER [facility] Utilities Answer Date Recorded In the past 12 months has [employer], gas, oil, or water [employer] threatened to shut off services in your [...] or training? Not on file Preferred Language Welsh 01/03/2024 Sex and Gender Information Value Date [...] 9:30 AM EDT Santo Terrell 1945 04/02[birth year]2024 [id number] CC: s/p L3-4 laminectomy HPI: Santo Terrell [...] glasses Allergies Allergen Reactions Triple Antibiotic W/Hydrocortisone [Akrudev-Bwvbsmqi-Jrvyvezwe-Hc] Rash Codeine Other (See Comments) Knots on my head Current Outpatient Medications: allopurinol (ZYLOPRIM) 100 MG tablet, Take 1 tablet by mouth Daily., Disp: , Rfl: Livalo 4 MG tablet, Take 1 tablet by mouth Every Night., Disp: 90 tablet, Rfl: 1 naloxone (NARCAN) 4 MG/0.1ML nasal spray, Call 911. Don't prime. [place] in 1 nostril for overdose. Repeat in [...] [facility] [address] [id number] Hannah Martinez APRN [address] [address] 02/04/2025 9:00 AM EDT Office Visit [facility] [address] [facility] [address] [place] [address] Britany Brxaton MD [address] [facility] [address] [place] [address] documented as of this encounter Visit Diagnoses Diagnosis S/P lumbar laminectomy- Primary documented in this encounter Care Teams Multiple Knife Edge Trimmer Operator Relationship Specialty Start Date End Date Robinson Manley MD [address] [place] [address] PCP - General Family Medicine 07/09/23 documented as of this encounter
--- OUTSIDE RECORDS SUMMARY | 2024-09-29 20:57 | XMS_ITS | Encounter Summary ---
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 Height and Weight, Routine Entered On: 11/17/2018 5:20 EST Performed On: 11/17/2018 4:00 EST by Mona Landry, [facility] Height and Weight, Routine Routine Weight Source : Bed scale Routine Weight Entry Format : Lander Routine Weight, Pounds : 228 lb Routine Weight Calculation : 103.64 kg Height Source : Chart Height Entry Format : Lander Height, Feet : 6 ft Height, Inches : 1 Inch Clinical Height : 185.42 cm Body Surface Area (BSA), Routine : 2.28 m2 Body Mass Index (BMI), Routine : 30.14 kg/m2 Mona Landry [facility] Unit Coord - 11/17/2018 5:20 EST Electronically signed by Eyal [facility] Conversion Human Resources Department Supervisor Cerner at 02/28/2023 5:33 PM CDT documented in this encounter Plan of Treatment Not on file documented as of this encounter Visit Diagnoses Not on filedocumented in this encounter
--- OUTSIDE RECORDS SUMMARY | 2024-09-29 20:58 | XMS_ITS | Encounter Summary ---
Author Organization [facility] ystem Address [address] [place] [address] Care Team Providers Care Slab Worker Name Role Phone Robinson Manley MD Primary Care Provider [phone]- [phone] Reason for Visit * Auth/Cert (Routine) Specialty Diagnoses / Procedures Referred By Contac t Referred To Contact Diagnoses Spinal stenosis of lumbar region, unspecified whether neurogenic claudication present Spinal stenosis of lumbar region, unspecified whether neurogenic claudication present [M48.061] Procedures HI GILMORE FACETECTOMY & FORAMOTOMY 1 VRT SGM LUMBAR LUMBAR LAMINECTOMY DISCECTOMY DECOMPRESSIO, N POSTERIOR 1-2 LEVELS, L3-4 Referral ID Status Reason Start Date Expiration Date Visits Re quested Visits Authorized [id number] 1 1 Encounter Details Date Type Department Care Team (Late st Contact Info) Description 01/01/2024 10:43 AM [facility] - 01/07/2024 4:50 PM [facility] Hospital Encounter [address] [place] [address] Hank Hitchcock MD [address] [address] Spinal stenosis of lumbar region with neurogenic claudication (Primary Dx) Discharge Disposition: Custodial Facility (DC - External) Social History Tobacco Use Types Packs/Day Years Used Date Smoking Tobacco: Former Cigarettes Q uit: 1974 Passive Smoke Exposure: Past Smokeless Tobacco: Never Alcohol Use Standard Drinks/Week Comments Yes 0 (1 standard drink = 0.6 oz pur e alcohol) BEER PER [facility] Utilities Answer Date Recorded In the past 12 months has [employer], oil, or water [employer] threatened to shut off services in your [...] from the original note were not included. [facility] Date of Admission: 01/01/2024 Date [...] [address] [place] [address] Kenna Manley PA-C Follow up in 2 week(s). Specialty: Neurosurgery Contact information: [address] [facility] [address] Contact information for after-discharge care Destination [facility] . Service: Custodial Contact information: [address] [facility] [id number] Kenna Manley PA-C 01/07/24 14:06 EST Cosigned by Hank Hitchcock MD at 01/07/2024 2:52 PM EST Associated attestation - Hank Hitchcock MD - 01/07/2024 2:52 PM EST I have reviewed this documentation and agree. * Stacey Kenney RN - 01/06/2024 11:46 AM EST Images from the original note were not included. 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) Date of 1945 Social Security Number [id number] [address] [place] [address] Home Phone Evangelical None Marital Status Single Admission Date 01/01/24 Admission Type Elective Admitting Provider Hank Hitchcock MD Attending Provider Hank Hitchcock MD Department, Room/Bed [facility] 3H, S380/1 Discharge Date Discharge Disposition Discharge Destination Attending Provider: Hank Hitchcock MD Allergies: Triple Antibiotic W/hydrocortisone [Sydmdgr-txvkkzyq-mtxbtbnmp-hc], Codeine Isolation: None Infection: None Code Status: No CPR Ht: 185.4 cm (73 ) Wt: 99.8 kg (220 lb 0.3 oz) Admission Cmt: None Principal Problem: None Active Insurance as of 01/01/2024 Primary Coverage Payor Plan Insurance Group Employer/Plan Group ANTHEM MEDICARE REPLACEMENT ANTHEM MEDICARE ADVANTAGE [id number] Payor Plan Address Payor Plan Phone Number Payor Plan Fax Number Effective Dates [address] 11/11/2018 - None Entered [facility] [address] Subscriber Name Subscriber Date Member ID SANTO CLEVELAND 1945 [id number] Emergency Contacts 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.) Home Phone Work Phone Mobile Phone HERBFITO (Relative) [phone] -- -- CATHY CLEVELAND (Daughter) -- -- [phone] Physical Therapy Notes (most recent note) Brandon [...] Atrial fibrillation Hypercholesterolemia Coronary artery disease involving match-e-be-nash-she-wish band heart without angina pectoris Essential hypertension Abnormal [...] LAMINECTOMY L3-4; Surgeon: Hank Hitchcock MD; Location: [facility]; Service: Neurosurgery; Laterality: N/A; SHOULDER ARTHROSCOPY [...] Mobility rolling left;rolling right -CS Rolling Left [place] (Bed Mobility) minimum assist (75% patient effort);verbal cues -CS Rolling Right [place] (Bed Mobility) minimum assist (75% patient effort);verbal cues -CS Assistive Device (Bed Mobility) bed rails;draw sheet -CS Row Name 01/03/24 144 Transfers Transfers bed-chair transfer;sit-stand transfer;stand-sit transfer -CS Row Name 01/03/24 144 Bed-Chair Transfer Bed-Chair [place] (Transfers) dependent (less than 25% patient effort);2 person assist;verbal cues -CS Assistive Device (Bed-Chair Transfers) lift device -CS Row Name 01/03/24 1447 Sit-Stand Transfer Sit-Stand [place] (Transfers) minimum assist (75% patient effort);2 person assist;verbal cues -CS Assistive Device (Sit-Stand Transfers) walker, front-wheeled - Row Name 01/03/24 1447 Stand-Sit Transfer Stand-Sit [place] (Transfers) minimum assist (75% patient effort);2 person [...] Name 01/03/24 144 Lower Body Dressing Assessment/Training [place] Level (Lower Body Dressing) don;socks;dependent (less than 25% patient effort) - Position (Lower Body Dressing) supine - Row Name 01/03/24 144 Self-Feeding Assessment/Training [place] Level (Feeding) liquids to mouth;set up;finger foods [...] (OT) Activity/Assistive Device (Transfer Goal 1, OT) vog-ne-xapkc/jeghe-uq-sav;toilet -CS [place] Level/Cues Needed (Transfer Goal 1, OT) minimum assist (75% or more patient effort) -CS Time Frame (Transfer Goal 1, OT) penitentiary goal (LTG);10 days -CS Progress/Outcome (Transfer Goal 1, OT) goal ongoing -CS Row Name 01/03/24 1449 Dressing Goal 1 (OT) Activity/Device (Dressing Goal 1, OT) lower body dressing -CS [place]/Cues Needed (Dressing Goal 1, OT) minimum assist (75% or more patient effort) -CS Time Frame (Dressing Goal 1, OT) penitentiary goal (LTG);10 days -CS Strategies/Barriers (Dressing Goal 1, OT) don/doff socks w/ AAD -CS Progress/Outcome (Dressing Goal 1, OT) goal ongoing -CS Row Name 01/03/24 1449 Toileting Goal 1 (OT) Activity/Device (Toileting Goal 1, OT) adjust/manage clothing;perform perineal hygiene -CS [place] Level/Cues Needed (Toileting Goal 1, OT) moderate assist (50-74% patient effort) -CS Time Frame (Toileting Goal 1, OT) penitentiary goal (LTG);10 days -CS Progress/Outcome (Toileting Goal 1, OT) goal ongoing -CS Row Name 01/03/24 1445 Therapy Assessment/Plan (OT) Planned Therapy Interventions (OT) [...] Score (OT) 15 -CS Row Name 01/03/24 0975 How much help from another person do [...] Therapist Occupational Therapy Education Title: PT OT ROOM MAID Therapies (In Progress) Topic: Occupational Therapy (In [...] complexity Time Calculation- OT Row Name 01/03/24 1963 Time Calculation- OT OT Start Time 1315 -CS OT Received On 01/03/24 -CS OT Goal Re-Cert Due Date 01/13/24 -CS Timed Charges 03470 - OT Therapeutic Activity Minutes 18 -CS 99505 - OT Self Care/Mgmt Minutes 5 -CS [...] Description Service Date Service Provider Modifiers Qty 62402054695 HC OT THERAPEUTIC ACT EA 15 MIN 01/03/2024 Rocio Wilson OT GO 1 56951964435 HC OT SELF CARE/MGMT/TRAIN EA 15 MIN 01/03/2024 Rocio Wilson OT GO 1 86460926136 HC OT EVAL MOD COMPLEXITY 3 01/03/2024 Rocio Wilson OT GO 1 18037774776 HC OT THER SUPP EA 15 MIN 01/03/2024 Rocio Wilson OT GO 2 Rocio Wilson OT 01/03/2024 2213 documented in this encounter Discharge Instructions * [...] sent through Care Everywhere. * Spinal Stenosis Jtzb-ey-Dtmv (Macedonian) * Seizure Adult Qglm-bq-Jvsk (Macedonian) * Gout Usru-lt-Hmia (Macedonian) * Understanding Your Risk for Falls (Macedonian) * How to Use an Incentive Spirometer (Macedonian) * How to Prevent Constipation After Surgery (Macedonian) documented in this encounter Medications at Time of Discharge allopurinol (ZYLOPRIM) 100 MG tablet Take 1 tablet by mouth Daily. 05/29/2023 Livalo 4 MG tabletIndications :Hypercholesterol emia Take 1 tablet by mouth Every Night. 90 tablet 1 07/09/2023 naloxone (NARCAN) 4 MG/0.1ML nasal spray Call 911. Don't prime. Garfield in 1 nostril for overdose. Repeat in [...] from the original note were not included. [facility] PROGRESS NOTE Patient Name: [...] and Transportation: PT recs rehab, bed at [facility] awaiting precert Expected Discharge Expected Discharge Date: 01/08/2024; Expected Discharge Time: DVT prophylaxis: Medical and mechanical DVT prophylaxis orders are present. AM-PAC 6 Clicks Score (PT): 18 (01/07/24 0816) CODE STATUS: Code Status and Medical Interventions: Ordered at: 01/01/24 0329 Medical Intervention Limits: NO artificial nutrition NO [...] Manley PA-C - 01/07/2024 9:04 AM EST [facility] NEUROSURGERY PROGRESS NOTE 01/07/24 Chief [...] from the original note were not included. [facility] PROGRESS NOTE Patient Name: [...] AM-PAC 6 Clicks Score (PT): 18 (01/05/24 5539) CODE STATUS: Code Status and Medical Interventions: Ordered at: 01/01/24 6416 Medical Intervention Limits: NO artificial nutrition NO [...] twice daily and continue indefinitely. Outpatient follow-up [facility] neurology with Dr. Braxton) 3 to 4 months. Comment: The patient is apprised of the [place] statute on driving. 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 I discussed the patients findings and my recommendations with patient and family Malcom Contreras MD 01/06/24 12:05 EST * Kenna Manley PA-C - 01/06/2024 9:13 AM EST [facility] NEUROSURGERY PROGRESS NOTE 01/06/24 Chief [...] 0.4 mg, Intravenous, Q5 Min PRN, Hank Hitchocck MD ondansetron ODT (ZOFRAN-ODT) disintegrating tablet 4 mg, 4 mg, Oral, Q6H PRN OR ondansetron (ZOFRAN) injection 4 mg, 4 mg, Intravenous, Q6H PRN, Hank Hitchcock MD pantoprazole (PROTONIX) injection 40 mg, 40 mg, Intravenous, Q AM, Valdemar Curran, SPORTS MARKETER, 40 mg at 01/06/24 0529 polyethylene glycol [...] from the original note were not included. [facility] PROGRESS NOTE Patient Name: [...] during transfer to the ICU. Neurology has johnyn following and loaded patient with keppra. CT [...] Status and Medical Interventions: Ordered at: 01/01/24 7976 Medical Intervention Limits: NO artificial nutrition NO intubation (DNI) Code Status (Patient has no pulse and is not breathing): No CPR (Do Not Attempt to Resuscitate) Medical Interventions (Patient has pulse or is breathing): Limited Support Brown Rodriguez MD 01/05/24 * Sophie Aponte PA-C - 01/05/2024 9:46 AM EST [facility] NEUROSURGERY PROGRESS NOTE 01/05/24 Chief [...] 40 mg, Intravenous, Q AM, Valdemar Curran, SPORTS MARKETER, 40 mg at 01/05/24 0459 polyethylene glycol [...] from the original note were not included. [facility] PROGRESS NOTE Patient Name: [...] from the same date. Technique: Routine 3-D fkjs-ef-ngisux gradient echo imaging was obtained of the [...] MD 01/02/2024 3:28 PM EST Workstation ID: [id number] MRI Brain Without Contrast Result Date: 01/02/2024 MRI ANGIOGRAM HEAD WO CONTRAST, MRI BRAIN WO CONTRAST Date of Exam: 01/02/2024 2:00 PM EST Indication: Stroke, follow up. Comparison: Noncontrast head CT and head CTA from the same date. Technique: Routine 3-D tufw-lp-qjqier gradient echo imaging was obtained of the [...] MD 01/02/2024 3:28 PM EST Workstation ID: [id number] Results for orders placed in visit on [...] Aponte PA-C - 01/04/2024 11:50 AM EST [facility] NEUROSURGERY PROGRESS NOTE 01/04/24 Chief [...] 40 mg, Intravenous, Q AM, Valdemar Curran, SPORTS MARKETER, 40 mg at 01/04/24 043 polyethylene glycol (MIRALAX) packet 17 g, 17 g, Oral, Daily PRN, Hank Hitchcock MD probenecid (BENEMID) tablet 250 mg, 250 mg, Oral, Daily, Hank Hitchcock MD, 250 mg at 01/04/24 0932 sennosides-docusate (PERICOLACE) 8.6-50 MG per tablet 1 tablet, 1 tablet, Oral, Nightly PRN, Hank Hicthcock MD sodium chloride 0.9 % flush 10 [...] LAMINECTOMY L3-4; Surgeon: Hank Hitchcock MD; Location: [facility]; Service: Neurosurgery; Laterality: N/A; SHOULDER ARTHROSCOPY [...] Carleen Dave APRN Allergies: Triple antibiotic w/hydrocortisone [faygxjo-ffmfvahf-jyqriguwk-hc] and Codeine Review of system Review of [...] from the same date. Technique: Routine 3-D gvmo-df-gugsmd gradient echo imaging was obtained of the [...] MD 01/02/2024 3:28 PM EST Workstation ID: [id number] MRI Brain Without Contrast Result Date: 01/02/2024 MRI ANGIOGRAM HEAD WO CONTRAST, MRI BRAIN WO CONTRAST Date of Exam: 01/02/2024 2:00 PM EST Indication: Stroke, follow up. Comparison: Noncontrast head CT and head CTA from the same date. Technique: Routine 3-D ibtw-my-coutnw gradient echo imaging was obtained of the [...] MD 01/02/2024 3:28 PM EST Workstation ID: [id number] CT Angiogram Head Result Date: 01/02/2024 CT [...] MD 01/02/2024 10:02 AM EST Workstation ID: [id number] CT Head Without Contrast Result Date: 01/02/2024 [...] MD 01/02/2024 8:25 AM EST Workstation ID: [id number] EEG Result Date: 01/01/2024 Reason for referral: [...] seen This report is transcribed using the Wizpertation system. CT Head Without Contrast Result Date: [...] MD 01/01/2024 5:25 PM EST Workstation ID: [id number] FL C Arm During Surgery Result Date: [...] Vee MD - 01/03/2024 11:07 AM EST [facility] Chief Complaint: Seizures [...] He is allergic to triple antibiotic w/hydrocortisone [khpxscl-xemnpdjh-hxkvlmztc-hc] andcodeine. FH: His family history includes Arthritis [...] social history were reviewed and updated in [facility] as appropriate. 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 Otherwise normal CT angiogram of the head as above. Electronically Signed: Ivan Jon MD 01/02/2024 10:02 AM EST Workstation ID: [id number] CT Head Without Contrast Result Date: 01/02/2024 [...] MD 01/02/2024 8:25 AM EST Workstation ID: [id number] EEG Result Date: 01/01/2024 Diffuse cerebral dysfunction of moderate degree, nonspecific No ongoing seizures are seen This report is transcribed using the [employer] dictation system. CT Head Without Contrast Result [...] MD 01/01/2024 5:25 PM EST Workstation ID: [id number] I reviewed the patient's new laboratory and [...] Vee MD - 01/02/2024 3:40 PM EST [facility] Chief Complaint: Seizures [...] He is allergic to triple antibiotic w/hydrocortisone [lpknmli-kkvierbf-asoudfxmq-hc] andcodeine. FH: His family history includes Arthritis [...] social history were reviewed and updated in [facility] as appropriate. 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 Otherwise normal CT angiogram of the head as above. Electronically Signed: Ivan Jon MD 01/02/2024 10:02 AM EST Workstation ID: [id number] CT Head Without Contrast Result Date: 01/02/2024 [...] MD 01/02/2024 8:25 AM EST Workstation ID: [id number] EEG Result Date: 01/01/2024 Diffuse cerebral dysfunction of moderate degree, nonspecific No ongoing seizures are seen This report is transcribed using the [employer] dictation system. CT Head Without Contrast Result [...] MD 01/01/2024 5:25 PM EST Workstation ID: [id number] I reviewed the patient's new laboratory and [...] 40 mg, Intravenous, Q AM, Valdemar Curran, SPORTS MARKETER, 40 mg at 01/02/24 0534 polyethylene glycol [...] Vee MD - 01/01/2024 3:33 PM EST [facility]IT [facility] Chief Complaint: Seizures [...] of time on this. MUKUL Carlin, AGACNP-, SPORTS MARKETER Electronically signed by Nancie Andrade APRN, 01/01/24, [...] He is allergic to triple antibiotic w/hydrocortisone [wseupns-ekqunmtw-zobdpkzgp-hc] andcodeine. FH: His family history includes Arthritis [...] social history were reviewed and updated in [facility] as appropriate. Objective O I/O 24 [...] seen This report is transcribed using the [employer] dictation system. CT Head Without Contrast Result [...] MD 01/01/2024 5:25 PM EST Workstation ID: [id number] I reviewed the patient's new laboratory and [...] this encounter H&P Notes * Eduardo Buitrago, SPORTS MARKETER - 01/01/2024 10:20 AM EST Pre-Op H&P Santo Cleveland [id number] 1945 Chief complaint: Back Pain Subjective: Patient [...] Allergies: Allergies Allergen Reactions Triple Antibiotic W/Hydrocortisone [Zwfswkb-Yyxsgfse-Ejmxstpdq-Hc] Rash Codeine Other (See Comments) Knots on [...] included. Neurology Referring provider: Hank Hitchcock MD [address] [facility] [address] [place] [address] Reason for Consultation: Seizures Chief complaint: Confused [...] LAMINECTOMY L3-4; Surgeon: Hank Hitchcock MD; Location: [facility]; Service: Neurosurgery; Laterality: N/A; SHOULDER ARTHROSCOPY [...] use: Never and Allergies: Triple antibiotic w/hydrocortisone [auobulm-stcqqmjg-vdsgaqbdx-hc] and Codeine, Vital Signs Blood pressure 114/87, [...] extremities. Babinski sign Motor testing shows equal project hire and equal withdrawal to stimulation. Sensory testing [...] hours) Procedure Component Value Units Date/Time Magnesium [[id number]] (Abnormal) Collected: 01/02/24730 Specimen: Blood Updated: 01/02/24852 Magnesium 2.5 mg/dL Basic Metabolic Panel [[id number]] (Abnormal) Collected: 01/02/24730 Specimen: Blood Updated: 01/02/24852 [...] function between ages 18 and 70. Phosphorus [[id number]] (Abnormal) Collected: 01/02/24730 Specimen: Blood Updated: 01/02/24852 Phosphorus 4.8 mg/dL CBC & Differential [[id number]] (Abnormal) Collected: 01/02/24730 Specimen: Blood Updated: 01/02/24812 Narrative: The following orders were created for panel order CBC & Differential. Procedure Abnormality Status --------- ------ CBC Auto Differential[[id number]] Abnormal Final result Please view results for these tests on the individual orders. CBC Auto Differential [[id number]] (Abnormal) Collected: 01/02/24730 Specimen: Blood Updated: 01/02/24812 [...] nRBC 0.0 /100 WBC POC Glucose Once [[id number]] (Normal) Collected: 01/02/24 0459 Specimen: Blood Updated: 01/02/24 0501 Glucose 129 mg/dL POC Glucose Once [[id number]] (Abnormal) Collected: 01/02/24 001 Specimen: Blood Updated: 01/02/24 0016 Glucose 177 mg/dL POC Glucose Once [[id number]] (Abnormal) Collected: 01/01/24 181 Specimen: Blood Updated: 01/01/24 181 Glucose 252 mg/dL Basic Metabolic Panel [[id number]] (Abnormal) Collected: 01/01/24 1539 Specimen: Blood from [...] ages 18 and 70. POC Glucose Once [[id number]] (Abnormal) Collected: 01/01/24 153 Specimen: Blood Updated: 01/01/24 1533 Glucose 167 mg/dL Rads: Imaging Results (Last 72 Hours) Procedure Component Value Units Date/Time CT Angiogram Head [[id number]] Collected: 01/02/24 0936 Updated: 01/02/24 1005 Narrative: [...] MD 01/02/2024 10:02 AM EST Workstation ID: [id number] CT Head Without Contrast [[id number]] Collected: 01/02/24816 Updated: 01/02/24827 Narrative: CT HEAD [...] MD 01/02/2024 8:25 AM EST Workstation ID: [id number] CT Head Without Contrast [[id number]] Collected: 01/01/241719 Updated: 01/01/241727 Narrative: CT HEAD [...] MD 01/01/2024 5:25 PM EST Workstation ID: [id number] FL C Arm During Surgery [[id number]] Resulted: 01/01/24 1451 Updated: 01/01/24 1451 Narrative: [...] tylenol. CM following for rehab. * Lorna hPelan RN - 01/06/2024 5:01 PM EST Goal [...] at bedside, plan is rehab possibly at [facility]. No changes this shift. IS encouraged... Problem: Adult Inpatient Plan of Care Goal: Absence of Hospital-Acquired Illness or Injury Intervention: Identify and Manage Fall Risk Recent Flowsheet Documentation Taken 01/05/2024 1815 by Radha Rogers, TRUDI Safety Promotion/Fall Prevention: gait belt activity supervised safety round/check completed Taken 01/05/2024 1719 by Radha oRgers RN Safety Promotion/Fall Prevention: activity supervised safety [...] PT -tolerated well, plan is rehab [facility]. No changes this shift.. Problem: Adult Inpatient [...] this shift. Plan is IP rehab at [facility] per OT recommendations. Problem: Adult Inpatient Plan [...] Surgeon(s): Hank Hitchcock MD Anesthesia: General Staff: Digital Media Coordinator: Day Urena RN; nAdreia Kolb RN Physician Top Cleaner: Kenna Manley PA-C Wastewater Analyst: Simba Kidd RT Scrub Person: Aleena Mauricio Planning Supervisor: Sunday Adame; Gardenia Casillas Estimated Blood Loss: [...] [facility] will [facility]. Reportcan be called to [phone]. They have access to [employer] for the dc summary. Pt is in agreement withplan Selected Continued Care - Admitted Since 01/01/2024 Destination Coordination complete. Service Provider Selected Services Address Phone Fax Patient Preferred [facility] [address] [phone] -- Internal Comment last updated by Stacey Kenney, RN 01/06/2024 0578 01/06: [facility] started insurance precert today. Durable [...] patient. Final Discharge Disposition Code: 03 - [facility] facility (SNF) * Therapy Treatment Note - Brandon Pimentel PT - 01/07/2024 11:47 AM EST Patient Name: Santo Cleveland : 1945 Today's Date: 01/07/2024 Admit Date: 01/01/2024 Visit Dx: ICD-10-CM ICD-9-CM 1. Spinal stenosis of lumbar region with neurogenic claudication M48.062 724.03 Patient Active Problem List Diagnosis Atrial fibrillation Hypercholesterolemia Coronary artery disease involving match-e-be-n[place]-she-wish band heart without angina pectoris Essential hypertension Abnormal [...] LAMINECTOMY L3-4; Surgeon: Hank Hitchcock MD; Location: [facility]; Service: Neurosurgery; Laterality: N/A; SHOULDER ARTHROSCOPY Right TEETH EXTRACTION General Information [facility] Name 01/07/24 1415 Physical Therapy Time and Intention Document Type discharge treatment -[place] Mode of Treatment physical therapy;individual therapy -[facility] Name 01/07/24 1415 General Information Patient Profile Reviewed yes -[place] Existing Precautions/Restrictions fall;seizures -[facility] Name 01/07/24 141 Cognition Orientation Status (Cognition) oriented x 3 -[facility] Name 01/07/24 141 Safety Issues, Functional Mobility Impairments Affecting Function (Mobility) balance;strength;pain;endurance/activity tolerance -[place] Comment, Safety Issues/Impairments (Mobility) alert, following commands -[place] User Oliver (r) = Recorded By, (t) = Taken By, (c) = Cosigned By Initials Name Provider Type [place] Brandon Pimentel, PT Physical Therapist Mobility [facility] Name 01/07/24 141 Bed Mobility Comment, (Bed Mobility) uic -[facility] 01/07/24 141 Sit-Stand Transfer Sit-Stand [place] (Transfers) verbal cues;standby assist [facility] Assistive Device (Sit-Stand Transfers) walker, front-wheeled -[facility] 01/07/24 141 Gait/Stairs (Locomotion) [place] Level (Gait) standby assist [facility] Assistive Device (Gait) walker, front-wheeled -[place] Distance in Feet (Gait) 600 -[place] Deviations/Abnormal Patterns (Gait) gait speed decreased;left sided deviations;antalgic;weight shifting decreased -[place] Comment, (Gait/Stairs) Gt traiing focused on controling walker with upright posture. Demonstrated good control. nO lOB -[place] User Oliver (r) = Recorded By, (t) = Taken By, (c) = Cosigned By Initials Name Provider Type [place] Brandon Pimentel, PT Physical Therapist Obj/Interventions [facility] Name 01/07/24 141 Balance Dynamic Standing Balance 1-person assist;standby assist -WY Position/Device Used, Standing Balance supported;walker, rolling -WY User Oliver (r) = Recorded By, (t) = Taken By, (c) = Cosigned By Initials Name Provider Type [place] Brandon Pimentel, PT Physical Therapist Goals/Plan No documentation. Clinical Impression [facility] Name 01/07/24 141 Pain Scale: FACES Pre/Post-Treatment Pain: FACES Scale, Pretreatment 2-->hurts little bit -WY Posttreatment Pain Rating 2-->hurts little bit -WY Pain Location - Side/Orientation Left -WY Pain Location - foot -WY Row Name 01/07/24 1417 Plan of Care Review Plan of Care Reviewed With patient -WY Progress improving -WY Outcome Evaluation L foot pain improving alowing for increase ambulation. -WY Row Name 01/07/24 141 Therapy Assessment/Plan (PT) Rehab Potential (PT) good, to achieve stated therapy goals -WY Criteria for Skilled Interventions Met (PT) yes;meets criteria;skilled treatment is necessary -WY Therapy Frequency (PT) daily -WY Row Name 01/07/24 141 Positioning and Restraints Pre-Treatment Position sitting in chair/recliner -WY Post Treatment Position chair -SC In Chair notified nsg;reclined;sitting;call light within reach;encouraged to call for assist -WY User Oliver (r) = Recorded By, (t) = Taken By, (c) = Cosigned By Initials Name Provider Type WY Brandon Pimentel PT Physical Therapist Outcome Measures Row Name 01/07/24 1418 01/07/24 0816 How much help from another person do you currently need... Turning from your back to your side while in flat bed without using bedrails? 4 -WY 3 -LB Moving from lying on back to sitting on the side of a flat bed without bedrails? 4 -WY 3 -LB Moving to and from a bed to a chair (including a wheelchair)? 4 -WY 3 -LB Standing up from a chair using your arms (e.g., wheelchair, bedside chair)? 3 - WY 3 -LB Climbing 3-5 steps with a railing? 3 -WY 3 -LB To walk in hospital room? 3 -SC 3 -LB AM-PAC 6 Clicks Score (PT) 21 -WY 18 -LB Highest Level of Mobility Goal 6 --> Walk 10 steps or more -WY 6 --> Walk 10 steps or more -LB Row Name 01/07/24 1418 Functional Assessment Outcome Measure Options AM-PAC 6 Clicks Basic Mobility (PT) -WY User Oliver (r) = Recorded By, (t) = Taken By, (c) = Cosigned By Initials Name Provider Type WY Brandon Pimentel PT Physical Therapist Lorna St RN Registered Nurse Physical Therapy Education Title: PT OT ROOM MAID Therapies (In Progress) Topic: Physical Therapy (Done) [...] Time 1147 -SC PT Received On 01/07/24 -WY PT Goal Re-Cert Due Date 01/13/24 -WY Timed Charges 80498 - Gait Training Minutes 20 -SC Total Minutes Timed Charges Total Minutes 20 -SC Total Minutes 20 -SC User Oliver (r) = Recorded By, (t) = Taken By, (c) = Cosigned By Initials Name Provider Type SC Brandon Pimentel, PT Physical Therapist Therapy Charges for Today Code Description Service Date Service Provider Modifiers Qty 17611340260 HC GAIT TRAINING EA 15 MIN 01/07/2024 [...] Atrial fibrillation Hypercholesterolemia Coronary artery disease involving match-e-be-nash-she-wish band heart without angina pectoris Essential hypertension Abnormal [...] LAMINECTOMY L3-4; Surgeon: Hank Hitchcock MD; Location: [facility]; Service: Neurosurgery; Laterality: N/A; SHOULDER ARTHROSCOPY [...] Row Name 01/06/24 1534 Sit-Stand Transfer Sit-Stand [place] (Transfers) verbal cues;standby assist -KR Assistive Device (Sit-Stand Transfers) walker, front-wheeled -KR Comment, (Sit-Stand Transfer) 2x from chair, 1x from toilet, + addt'l 5x STS from chair. -KR Row Name 01/06/24 1534 Gait/Stairs (Locomotion) [place] Level (Gait) standby assist -KR Assistive Device [...] Therapist Physical Therapy Education Title: PT OT ROOM MAID Therapies (In Progress) Topic: Physical Therapy (Done) [...] at 01/06/2024 155 Eager, E, VU by WY at 01/05/2024 112 Comment: reviewed HEp Acceptance, E, VU by CK at 01/04/2024 1118 Acceptance, E, VU by ND at 01/03/2024 0942 Family Acceptance, E, VU by KR at 01/06/2024 1553 Acceptance, E, VU by CK at 01/04/2024 1118 User Oliver Initials Effective Dates Name Provider Type Discipline WY 12/14/22 - Brandon Pimentel, PT Physical Therapist [...] PT Received On 01/06/24 -KR Timed Charges 18690 - PT Therapeutic Exercise Minutes 5 -KR 70834 - PT Therapeutic Activity Minutes 18 -KR Total Minutes Timed Charges Total Minutes 23 -KR Total Minutes 23 -KR User Oliver (r) = Recorded By, (t) = Taken By, (c) = Cosigned By Initials Name Provider Type Ember Verde PT Physical Therapist Therapy Charges for Today Code Description Service Date Service Provider Modifiers Qty 72922461162 PT THER PROC EA 15 MIN 01/06/2024 Ember Johnson PT GP 1 01766798953 HC PT THERAPEUTIC ACT EA 15 MIN 01/06/2024 Ember Johnson PT GP 1 PT G-Codes Outcome Measure Options: AM-PAC 6 Clicks Basic Mobility (PT) AM-PAC 6 Clicks Score (PT): 18 AM-PAC 6 Clicks Score (OT): 15 Ember Johnson PT 01/06/2024 * Case Management/Social Work - Stacey Kenney RN - 01/06/2024 11:52 AM EST Continued Stay Note [facility] Patient Name: Santo Cleveland Today's Date: 01/06/2024 Admit Date: 01/01/2024 Plan: Skilled Rehab Discharge Plan Row Name 01/06/24 1150 Plan Plan Skilled Rehab Patient/Family in Agreement with Plan yes Plan Comments Trade Sales Assistant spoke with pt and his daughter, at the bedside. PT/OT recommended skilled rehab. Pt would really like to be somewhere in [place]. They would like referrals to [facility], and [facility]. Trade Sales Assistant spoke with Ina/Vonnie, she is unsure that they are in network. She requested CM fax all information today. CM let [facility] know pt is medically ready . Information faxed, confirmed fax number in [employer]. CM spoke with [facility], on the phone. She will review in [facility]. CM did not make referral to [facility], as of today, since pt prefers [place]. Trade Sales Assistant will continue to follow. 1450-Sagrario/[facility] called CM and stated she has a private bed available for pt. CM spoke with pt's daughter, on the phone, pt and daughter are agreeable. Sagrario will start insurance precert today. Final Discharge Disposition Code 03 - [facility] facility (SNF) Discharge Codes No documentation. Expected [...] Atrial fibrillation Hypercholesterolemia Coronary artery disease involving match-e-be-nash-she-wish band heart without angina pectoris Essential hypertension Abnormal [...] LAMINECTOMY L3-4; Surgeon: Hank Hitchcock MD; Location: [facility]; Service: Neurosurgery; Laterality: N/A; SHOULDER ARTHROSCOPY Right TEETH EXTRACTION General Information Row Name 01/05/24 1122 Physical Therapy Time and Intention Document Type therapy note (daily note) -WY Mode of Treatment physical therapy;individual therapy -WY Row Name 01/05/24 112 General Information Patient Profile Reviewed yes -WY Existing Precautions/Restrictions fall;seizures -WY Row Name 01/05/24 112 Cognition Orientation Status (Cognition) oriented x 3 -WY Row Name 01/05/24 112 Safety Issues, Functional Mobility Impairments Affecting Function (Mobility) balance;strength;pain;postural/trunk control;endurance/activity tolerance -WY Comment, Safety Issues/Impairments (Mobility) alert, following commands -WY User Oliver (r) = Recorded By, (t) = Taken By, (c) = Cosigned By Initials Name Provider Type WY Brandon Pimentel PT Physical Therapist Mobility Row Name 01/05/24 112 Bed Mobility Comment, (Bed Mobility) uic -WY Row Name 01/05/24 112 Transfers Comment, (Transfers) cues for hand placement. Able to get to standing without assistance -WY Row Name 01/05/24 112 Sit-Stand Transfer Sit-Stand [place] (Transfers) verbal cues;standby assist -WY Assistive Device (Sit-Stand Transfers) walker, front-wheeled -[facility] Name 01/05/24 112 Gait/Stairs (Locomotion) [place] Level (Gait) 1 person assist;contact guard;verbal cues -WY Assistive Device (Gait) walker, front-wheeled [facility] Deviations/Abnormal Patterns (Gait) gait speed decreased;left sided deviations;antalgic;weight shifting decreased -WY Bilateral Gait Deviations forward flexed posture -WY Left Sided Gait Deviations weight shift ability decreased;heel strike decreased -WY Comment, (Gait/Stairs) Gt training focused on controling walker in hallway. Encouraged upright posture frequently. c/o L foot pain throught session limiting distance. Rn aware -WY User Oliver (r) = Recorded By, (t) = Taken By, (c) = Cosigned By Initials Name Provider Type [place]Y Brandon Pimentel PT Physical Therapist Obj/Interventions Row Name 01/05/24 112 Motor Skills Therapeutic Exercise hip;knee;ankle -[facility] Name 01/05/24 112 Hip (Therapeutic Exercise) Hip (Therapeutic Exercise) AROM (active range of motion) -WY Hip Isometrics (Therapeutic Exercise) bilateral;flexion;extension;aBduction;aDduction;10 repetitions -[facility] 01/05/24 1125 Ankle (Therapeutic Exercise) Ankle (Therapeutic Exercise) AROM (active range of motion) -WY Ankle AROM (Therapeutic Exercise) bilateral;dorsiflexion;plantarflexion;10 repetitions -[facility] 01/05/24 1125 Balance Balance Assessment standing dynamic balance -WY Dynamic Standing Balance 1-person assist;contact guard;verbal cues -WY Position/Device Used, Standing Balance supported;walker, rolling -WY Comment, Balance unsteady -WY User Oliver (r) = Recorded By, (t) = Taken By, (c) = Cosigned By Initials Name Provider Type [place]Y Brandon Pimentel, PT Physical Therapist Goals/Plan No documentation. Clinical Impression [facility] 01/05/24 1125 Pain Pretreatment Pain Rating 7/10 -WY Posttreatment Pain Rating 9/10 -WY Pain Location - Side/Orientation Left -WY Pain Location - foot -WY Pre/Posttreatment Pain Comment anterior 1st ray and tarsal jt -WY Pain Intervention(s) Cold applied -[facility] 01/05/245 Plan of Care Review Plan of Care Reviewed With patient -WY Progress improving -WY Outcome Evaluation Patient's gait continues to be limited by c/o L foot pain. He was still able to participate in some ambulation activities in hallway -[facility] 01/05/24 1125 Therapy Assessment/Plan (PT) Rehab Potential (PT) good, to achieve stated therapy goals -WY Criteria for Skilled Interventions Met (PT) yes;meets criteria;skilled treatment is necessary -WY Therapy Frequency (PT) daily -[facility] 01/05/24 1125 Positioning and Restraints Pre-Treatment Position sitting in chair/recliner -WY Post Treatment Position chair -WY In Chair notified nsg;reclined;sitting;call light within reach;encouraged to call for assist;with family/caregiver;exit alarm on -WY User Oliver (r) = Recorded By, (t) = Taken By, (c) = Cosigned By Initials Name Provider Type WY Brandon Pimentel, PT Physical Therapist Outcome Measures [facility] Name 01/05/24 1129 01/05/24 0855 How much help from another person do you currently need... Turning from your back to your side while in flat bed without using bedrails? 3 -WY 3 -AP Moving from lying on back to sitting on the side of a flat bed without bedrails? 3 -WY 3 -AP Moving to and from a bed to a chair (including a wheelchair)? 3 -WY 3 -AP Standing up from a chair using your arms (e.g., wheelchair, bedside chair)? 3 - WY 3 -AP Climbing 3-5 steps with a railing? 3 -WY 2 -AP To walk in hospital room? 3 -WY 3 -AP AM-PAC 6 Clicks Score (PT) 18 -WY 17 -AP Highest Level of Mobility Goal 6 --> Walk 10 steps or more -WY 5 --> Static standing -AP Row Name 01/05/24 1129 Functional Assessment Outcome Measure Options AM-PAC 6 Clicks Basic Mobility (PT) -WY User Oliver (r) = Recorded By, (t) = Taken By, (c) = Cosigned By Initials Name Provider Type SC Brandon Pimentel, PT Physical Therapist AP Radha Rogers, RN Registered Nurse Physical Therapy Education Title: PT OT ROOM MAID Therapies (In Progress) Topic: Physical Therapy (Done) Point: Mobility training (Done) Learning Progress Summary Patient Eager, E, VU by WY at 01/05/2024 112 Comment: reviewed HEp Acceptance, E, VU by CK at 01/04/2024 1118 Acceptance, E, VU by ND at 01/03/2024 0942 Family Acceptance, E, VU by CK at 01/04/2024 111 Point: Home exercise program (Done) Learning Progress Summary Patient Eager, E, VU by WY at 01/05/2024 112 Comment: reviewed HEp Acceptance, [...] Initials Effective Dates Name Provider Type Discipline WY 12/14/22 - Brandon Pimentel, PT Physical Therapist [...] Time 1029 -SC PT Received On 01/05/24 -WY PT Goal Re-Cert Due Date 01/13/24 -WY Timed Charges 07701 - PT Therapeutic Exercise Minutes 5 -SC 98262 - Gait Training Minutes 15 -SC Total Minutes Timed Charges Total Minutes 20 -SC Total Minutes 20 -SC User Oliver (r) = Recorded By, (t) = Taken By, (c) = Cosigned By Initials Name Provider Type SC Brandon Pimentel, PT Physical Therapist Therapy Charges for Today Code Description Service Date Service Provider Modifiers Qty [id number] HC GAIT TRAINING EA 15 MIN 01/05/2024 [...] Atrial fibrillation Hypercholesterolemia Coronary artery disease involving match-e-be-nash-she-wish band heart without angina pectoris Essential hypertension Abnormal [...] LAMINECTOMY L3-4; Surgeon: Hank Hitchcock MD; Location: [facility]; Service: Neurosurgery; Laterality: N/A; SHOULDER ARTHROSCOPY [...] Bed Mobility Bed Mobility supine-sit -CK Supine-Sit [place] (Bed Mobility) minimum assist (75% patient effort);1 person assist;verbal cues -CK Assistive Device (Bed Mobility) bed rails -CK Comment, (Bed Mobility) cues provided for logroll technique, patient demo'd good sequencing with this, Seth to lift trunk from HOB -CK Row Name 01/04/24 1109 Sit-Stand Transfer Sit-Stand [place] (Transfers) contact guard;1 person assist;verbal cues -CK Assistive Device (Sit-Stand Transfers) walker, front-wheeled -CK Comment, (Sit-Stand Transfer) cues to push up from bed/grab bar in bathroom -CK Row Name 01/04/24 1109 Gait/Stairs (Locomotion) [place] Level (Gait) moderate assist (50% patient effort);1 [...] Radha Yip, RN Registered Nurse Sabrina Bhatt, Nursery Attendant Nursery Attendant Dannielle Burnette PT Physical Therapist Physical Therapy Education Title: PT OT ROOM MAID Therapies (In Progress) Topic: Physical Therapy (Done) [...] Re-Cert Due Date 01/13/24 -CK Timed Charges 07954 - PT Therapeutic Exercise Minutes 10 -CK 46898 - Gait Training Minutes 11 -CK 61260 - PT Therapeutic Activity Minutes 5 -CK Total Minutes Timed Charges Total Minutes 26 -CK Total Minutes 26 -CK User Oliver (r) = Recorded By, (t) = Taken By, (c) = Cosigned By Initials Name Provider Type CK Dannielle Orellana, PT Physical Therapist Therapy Charges for Today Code Description Service Date Service Provider Modifiers Qty 18611269201 HC PT THER PROC EA 15 MIN 01/04/2024 Dannielle Orellana, PT GP 1 [id number] HC GAIT TRAINING EA 15 MIN 01/04/2024 [...] Atrial fibrillation Hypercholesterolemia Coronary artery disease involving match-e-be-nash-she-wish band heart without angina pectoris Essential hypertension Abnormal [...] LAMINECTOMY L3-4; Surgeon: Hank Hitchcock MD; Location: [facility]; Service: Neurosurgery; Laterality: N/A; SHOULDER ARTHROSCOPY [...] Mobility rolling left;rolling right - Rolling Left [place] (Bed Mobility) minimum assist (75% patient effort);verbal cues - Rolling Right [place] (Bed Mobility) minimum assist (75% patient effort);verbal cues - Assistive Device (Bed Mobility) bed rails;draw sheet - Row Name 01/03/24 144 Transfers Transfers bed-chair transfer;sit-stand transfer;stand-sit transfer - Row Name 01/03/24 144 Bed-Chair Transfer Bed-Chair [place] (Transfers) dependent (less than 25% patient effort);2 person assist;verbal cues - Assistive Device (Bed-Chair Transfers) lift device - Row Name 01/03/241446 Sit-Stand Transfer Sit-Stand [place] (Transfers) minimum assist (75% patient effort);2 person assist;verbal cues - Assistive Device (Sit-Stand Transfers) walker, front-wheeled - Row Name 01/03/241446 Stand-Sit Transfer Stand-Sit [place] (Transfers) minimum assist (75% patient effort);2 person [...] Name 01/03/24 144 Lower Body Dressing Assessment/Training [place] Level (Lower Body Dressing) don;socks;dependent (less than 25% patient effort) - Position (Lower Body Dressing) supine - Row Name 01/03/24 144 Self-Feeding Assessment/Training [place] Level (Feeding) liquids to mouth;set up;finger foods - Position (Self-Feeding) supported sitting - User Oliver (r) = Recorded By, (t) = Taken By, (c) = Cosigned By Initials Name Provider Type Rocio Wilson OT Occupational Therapist Obj/Interventions Row Name 01/03/24 144 Sensory Assessment (Somatosensory) Sensory Assessment (Somatosensory) UE sensation intact -[facility] Name 01/03/24 144 Range of Motion Comprehensive General Range of Motion bilateral upper extremity ROM WFL -[facility] Name 01/03/24 1448 Strength Comprehensive (MMT) Comment, [...] Type Rocio Wilson OT Occupational Therapist Goals/Plan [facility] Name 01/03/24 144 Transfer Goal 1 (OT) Activity/Assistive Device (Transfer Goal 1, OT) [id number]-tr-pklfy/qracu-cu-txx;toilet - [place] Level/Cues Needed (Transfer Goal 1, OT) minimum assist (75% or more patient effort) - Time Frame (Transfer Goal 1, OT) termite renewal inspector goal (LTG);10 days - Progress/Outcome (Transfer Goal 1, OT) goal ongoing - Row Name 01/03/24 144 Dressing Goal 1 (OT) Activity/Device (Dressing Goal 1, OT) lower body dressing -CS [place]/Cues Needed (Dressing Goal 1, OT) minimum assist (75% or more patient effort) -CS Time Frame (Dressing Goal 1, OT) penitentiary goal (LTG);10 days -CS Strategies/Barriers (Dressing Goal 1, OT) don/doff socks w/ AAD -CS Progress/Outcome (Dressing Goal 1, OT) goal ongoing -CS Row Name 01/03/24 1449 Toileting Goal 1 (OT) Activity/Device (Toileting Goal 1, OT) adjust/manage clothing;perform perineal hygiene -CS [place] Level/Cues Needed (Toileting Goal 1, OT) moderate assist (50-74% patient effort) -CS Time Frame (Toileting Goal 1, OT) termite renewal inspector goal (LTG);10 days -CS Progress/Outcome (Toileting Goal 1, OT) goal ongoing -CS Row Name 01/03/24 5395 Therapy Assessment/Plan (OT) Planned Therapy Interventions (OT) [...] Therapist Occupational Therapy Education Title: PT OT ROOM MAID Therapies (In Progress) Topic: Occupational Therapy (In [...] Re-Cert Due Date 01/13/24 -CS Timed Charges 85893 - OT Therapeutic Activity Minutes 18 -CS 34317 - OT Self Care/Mgmt Minutes 5 -CS [...] Description Service Date Service Provider Modifiers Qty 83080164156 HC OT THERAPEUTIC ACT EA 15 MIN 01/03/2024 Rocio Wilson OT GO 1 25888997301 HC OT SELF CARE/MGMT/TRAIN EA 15 MIN 01/03/2024 Rocio Wilson OT GO 1 81894690656 HC OT EVAL MOD COMPLEXITY 3 01/03/2024 Rocio Wilson OT GO 1 52310301944 HC OT THER SUPP EA 15 MIN 01/03/2024 Rocio Wilson OT GO 2 Rocio Wilson OT 01/03/2024 * Case Management/Social Work - Didi Lawrence RN - 01/03/2024 11:46 AM EST Images from the original note were not included. 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 Confirmed patient's residence in [facility]; PCP is Robinson Manley; insurance is [employer] Medicare. Patient is reported to be independent with ADLs and mobility prior to this admission; no DMEor HH. Patient's pharmacy is [facility] in [place]. Discussed therapy recommendations with Cathy; she willfurther [...] Reason for Consult discharge planning Preferred Language Macedonian Contact Information Permission Granted to Share Info With outsole caserresource efficiency manager Status Row Name 01/03/24 1135 Functional [...] Atrial fibrillation Hypercholesterolemia Coronary artery disease involving match-e-be-nash-she-wish band heart without angina pectoris Essential hypertension Abnormal [...] LAMINECTOMY L3-4; Surgeon: Hank Hitchcock MD; Location: [facility]; Service: Neurosurgery; Laterality: N/A; SHOULDER ARTHROSCOPY [...] Mobility supine-sit;sit-supine;rolling left;rolling right -ND Rolling Left [place] (Bed Mobility) moderate assist (50% patient effort) -ND Rolling Right [place] (Bed Mobility) moderate assist (50% patient effort) -ND Supine-Sit [place] (Bed Mobility) moderate assist (50% patient effort) -ND Sit-Supine [place] (Bed Mobility) moderate assist (50% patient effort) [...] -ND Row Name 01/03/24924 Bed-Chair Transfer Bed-Chair [place] (Transfers) dependent (less than 25% patient effort);2 person assist;verbal cues -ND Assistive Device (Bed-Chair Transfers) lift device -ND Comment, (Bed-Chair Transfer) Pt with decreased tolerance to being upright. Lifted to chair where pt reporting 10/10 pain and RN administered pain medication. Pt with increased fatigue following painmedication and lifted back to bed per RN request. -ND Row Name 01/03/24924 Sit-Stand Transfer Sit-Stand [place] (Transfers) unable to assess -ND Row Name 01/03/24924 Gait/Stairs (Locomotion) [place] Level (Gait) unable to assess -ND Comment, [...] PT) sit to supine/supine to sit -ND [place] Level/Cues Needed (Bed Mobility Goal 1, PT) independent -ND Time Frame (Bed Mobility Goal 1, PT) penitentiary goal (LTG);10 days -ND Row Name 01/03/24937 Transfer Goal 1 (PT) Activity/Assistive Device (Transfer Goal 1, PT) grd-gx-hfcem/abnlb-hf-iun;csh-ta-dxhnh/eclhh-vz-pjh-ND [place] Level/Cues Needed (Transfer Goal 1, PT) independent -ND Time Frame (Transfer Goal 1, PT) termite renewal inspector goal (LTG);10 days -ND Row Name 01/03/24937 Gait Training Goal 1 (PT) Activity/Assistive Device (Gait Training Goal 1, PT) gait (walking locomotion);increase endurance/gait distance;decrease fall risk -ND [place] Level (Gait Training Goal 1, PT) independent -ND Distance (Gait Training Goal 1, PT) 500 -ND Time Frame (Gait Training Goal 1, PT) termite renewal inspector goal (LTG);10 days -ND Row Name 01/03/24937 [...] Therapist Physical Therapy Education Title: PT OT ROOM MAID Therapies (In Progress) Topic: Physical Therapy (In [...] Description Service Date Service Provider Modifiers Qty [id number] HC PT EVAL MOD COMPLEXITY 4 01/03/2024 Catalina Guadarrama, PT GP 1 PT G-Codes Outcome Measure Options: AM-PAC 6 Clicks Basic Mobility (PT) AM-PAC 6 Clicks Score (PT): 11 PT Discharge Summary Anticipated Discharge Disposition (PT): inpatient rehabilitation facility Catalina Guadarrama PT 01/03/2024 * Case Management/Social Work - Isis Cancino RN - 01/02/2024 3:33 PM EST Continued Stay Note [facility] Patient Name: Santo Cleveland Today's Date: [...] Per Chart review, Mr. Cleveland lives in [facility]. He is now being followed [...] RN to update primary service. Addendum - 2309 Primary service aware. documented in this encounter Plan of Treatment Upcoming Encounters Date Type Department Care Team (Late st Contact Info) Description 12/15/2024 8:30 AM EST Office Visit [facility] [address] [phone] Hannah Martinez APRN [address] [id number] 02/04/2025 9:00 AM EDT Office Visit [facility] [address] [facility] [address] [place] [address] Britany Braxton MD [address] [facility] [address] [place] [address] documented as of this encounter [...] DURING SURGERY Routine 01/01/2024 2:50 PM EST [facility] FACETECTOMY & FORAMOTOMY 1 VRT SGM LUMBAR 01/01/2024 1:16 PM EST Spinal stenosis of lumbar region, unspecified whether neurogenic claudication present Special Needs FILMS ON PAX, C-ARM + SCANNED - TELEMETRY 01/01/2024 SCANNED - TELEMETRY 01/01/2024 documented in this encounter Results * Magnesium (01/07/2024 5:41 AM EST) Pathologist [facility] Magnesium 1.8 1.6 - 2.4 mg/dL 01/07/2024 6:53 AM EST [facility] Blood Venipuncture / Unknown 01/07/2024 5:41 AM EST 01/07/2024 6:11 AM EST us Brown Rodriguez MD LAB BLOOD ORDERABLES Final Res ult [facility]
[address] [place] [address], * (ABNORMAL) Basic Metabolic Panel (01/07/2024 5:41 AM EST) Pathologist [facility] Glucose 169(H) 65 - 99 mg/dL 01/07/2024 6:53 AM EST [facility] BUN 20 8 - 23 mg/dL 01/07/2024 6:53 AM EST [facility] Creatinine 1.10 0.76 - 1.27 mg/dL 01/07/2024 6:53 AM EST [facility] Sodium 135(L) 136 - 145 mmol/L 01/07/2024 6:53 AM EST [facility] Potassium 4.2 3.5 - 5.2 mmol/L 01/07/2024 6:53 AM EST [facility] Chloride 101 98 - 107 mmol/L 01/07/2024 6:53 AM EST [facility] CO2 25.0 22.0 - 29.0 mmol/L 01/07/2024 6:53 AM EST [facility] Calcium 9.2 8.6 - 10.5 mg/dL 01/07/2024 6:53 AM EST [facility] BUN/Creatinine Ratio 18.2 7.0 - 25.0 01/07/2024 6:53 AM EST [facility] Anion Gap 9.0 5.0 - 15.0 mmol/L 01/07/2024 6:53 AM EST [facility] eGFR 69.1 >60.0 mL/min/1.7 3 01/07/2024 6:53 AM [facility] Blood Venipuncture / Unknown 01/07/2024 5:41 AM EST 01/07/2024 6:11 AM EST [facility] - 01/07/2024 6:53 AM EST GFR Normal >60 Chronic Kidney Disease <60 Kidney Failure <15 The GFR formula is only valid for adults with stable renal function between ages 18 and 70. us Brown Rodriguez MD LAB BLOOD ORDERABLES Final Res ult [facility]
[address] [place] [address], * Potassium (01/06/2024 6:00 PM EST) Potassium 4.8 3.5 - 5.2 mmol/L 01/06/2024 6:47 PM EST [facility] Comment:Slight hemolysis det ected by analyzer. Result may be falsely elevated. Blood Venipuncture / Unknown 01/06/2024 6:00 PM EST 01/06/2024 6:33 PM EST us Brown Rodriguez MD LAB BLOOD ORDERABLES Final Res ult [facility]
[address] [place] [address], * Magnesium (01/06/2024 5:07 AM EST) Pathologist [facility] Magnesium 1.7 1.6 - 2.4 mg/dL 01/06/2024 6:18 AM EST [facility] Blood Venipuncture / Unknown 01/06/2024 5:07 AM EST 01/06/2024 5:38 AM EST Brown Rodriguez MD LAB BLOOD ORDERABLES Final Res ult [facility]
[address] [place] [address], * (ABNORMAL) Basic Metabolic Panel (01/06/2024 5:07 AM EST) Pathologist [facility] Glucose 189(H) 65 - 99 mg/dL 01/06/2024 6:18 AM EST [facility] BUN 21 8 - 23 mg/dL 01/06/2024 6:18 AM [facility] Creatinine 1.11 0.76 - 1.27 mg/dL 01/06/2024 6:18 AM [facility] Sodium 135(L) 136 - 145 mmol/L 01/06/2024 6:18 AM EST [facility] Potassium 3.4(L) 3.5 - 5.2 mmol/L 01/06/2024 6:18 AM [facility] Chloride 100 98 - 107 mmol/L 01/06/2024 6:18 AM EST [facility] CO2 24.0 22.0 - 29.0 mmol/L 01/06/2024 6:18 AM EST [facility] Calcium 8.4(L) 8.6 - 10.5 mg/dL 01/06/2024 6:18 AM EST [facility] BUN/Creatinine Ratio 18.9 7.0 - 25.0 01/06/2024 6:18 AM EST [facility] Anion Gap 11.0 5.0 - 15.0 mmol/L 01/06/2024 6:18 AM EST [facility] eGFR 68.4 >60.0 mL/min/1.7 3 01/06/2024 6:18 AM EST [facility] Blood Venipuncture / Unknown 01/06/2024 5:07 AM EST 01/06/2024 5:38 AM EST Narrative [facility] - 01/06/2024 6:18 AM EST GFR Normal >60 Chronic Kidney Disease <60 Kidney Failure <15 The GFR formula is only valid for adults with stable renal function between ages 18 and 70. us Brown Rodriguez MD LAB BLOOD ORDERABLES Final Res ult Performing Organization Address City/[facility]/ZIP Co de Phone Number [facility]
[address] [place] [address], * Magnesium (01/05/2024 5:15 AM EST) Magnesium 1.7 1.6 - 2.4 mg/dL 01/05/2024 6:47 AM EST [facility] Blood Venipuncture / Unknown 01/05/2024 5:15 AM EST 01/05/2024 6:04 AM EST us Brown Rodriguez MD LAB BLOOD ORDERABLES Final Res ult [facility]
[address] [place] [address], * (ABNORMAL) Basic Metabolic Panel (01/05/2024 5:15 AM EST) Glucose 139(H) 65 - 99 mg/dL 01/05/2024 6:47 AM EST [facility] BUN 20 8 - 23 mg/dL 01/05/2024 6:47 AM EST [facility] Creatinine 1.10 0.76 - 1.27 mg/dL 01/05/2024 6:47 AM EST [facility] Sodium 137 136 - 145 mmol/L 01/05/2024 6:47 AM [facility] Potassium 3.4(L) 3.5 - 5.2 mmol/L 01/05/2024 6:47 AM EST [facility] Chloride 103 98 - 107 mmol/L 01/05/2024 6:47 AM [facility] CO2 24.0 22.0 - 29.0 mmol/L 01/05/2024 6:47 AM [facility] Calcium 8.1(L) 8.6 - 10.5 mg/dL 01/05/2024 6:47 AM [facility] BUN/Creatinine Ratio 18.2 7.0 - 25.0 01/05/2024 6:47 AM [facility] Anion Gap 10.0 5.0 - 15.0 mmol/L 01/05/2024 6:47 AM [facility] eGFR 69.1 >60.0 mL/min/1.7 3 01/05/2024 6:47 AM [facility] Blood Venipuncture / Unknown 01/05/2024 5:15 AM EST 01/05/2024 6:04 AM EST [facility] - 01/05/2024 6:47 AM EST GFR Normal >60 Chronic Kidney Disease <60 Kidney Failure <15 The GFR formula is only valid for adults with stable renal function between ages 18 and 70. us Brown Rodriguez MD LAB BLOOD ORDERABLES Final Res ult [facility]
[address] [place] [address], * POC Glucose Once (01/04/2024 5:31 PM EST) Glucose 94 70 - 130 mg/dL 01/04/2024 5:34 PM EST [facility] Blood 01/04/2024 5:31 PM EST 01/04/2024 5:34 PM EST us Hank Hitchcock MD POINT OF CARE TEST ORDERABLE S Final Result Performing Organization Address [facility] Co de Phone Number [facility]
[address] [place] [address], * (ABNORMAL) POC Glucose Once (01/04/2024 11:21 AM EST) Glucose 188(H) 70 - 130 mg/dL 01/04/2024 11:22 AM EST [facility] Blood 01/04/2024 11:2 1 AM EST 01/04/2024 11:22 AM EST us Hank Hitchcock MD POINT OF CARE TEST ORDERABLE S Final Result Performing Organization Address [facility]/[place] de Phone Number [facility]
[address] [place] [address], * (ABNORMAL) Basic Metabolic Panel (01/04/2024 4:04 AM EST) Glucose 135(H) 65 - 99 mg/dL 01/04/2024 5:57 AM [facility] BUN 21 8 - 23 mg/dL 01/04/2024 5:57 AM EST [facility] Creatinine 0.96 0.76 - 1.27 mg/dL 01/04/2024 5:57 AM [facility] Sodium 138 136 - 145 mmol/L 01/04/2024 5:57 AM EST [facility] Potassium 3.6 3.5 - 5.2 mmol/L 01/04/2024 5:57 AM [facility] Comment:Slight hemolysis det ected by analyzer. Result may be falsely elevated. Chloride 106 98 - 107 mmol/L 01/04/2024 5:57 AM [facility] CO2 22.0 22.0 - 29.0 mmol/L 01/04/2024 5:57 AM EST [facility] Calcium 8.3(L) 8.6 - 10.5 mg/dL 01/04/2024 5:57 AM EST [facility] BUN/Creatinine Ratio 21.9 7.0 - 25.0 01/04/2024 5:57 AM EST [facility] Anion Gap 10.0 5.0 - 15.0 mmol/L 01/04/2024 5:57 AM EST [facility] eGFR 81.4 >60.0 mL/min/1.7 3 01/04/2024 5:57 AM EST [facility] Blood Venipuncture / Unknown 01/04/2024 4:04 AM EST 01/04/2024 5:18 AM EST [facility] - 01/04/2024 5:57 AM EST GFR Normal >60 Chronic Kidney Disease <60 Kidney Failure <15 The GFR formula is only valid for adults with stable renal function between ages 18 and 70. us Tyrone Vee MD LAB BLOOD ORDERABLES Final Resu lt [facility]
[address] [place] [address], * CBC (No Diff) (01/04/2024 4:04 AM EST) WBC 9.20 3.40 - 10.80 10*3/mm3 01/04/2024 5:25 AM [facility] RBC 4.93 4.14 - 5.80 10*6/mm3 01/04/2024 5:25 AM [facility] Hemoglobin 14.3 13.0 - 17.7 g/dL 01/04/2024 5:25 AM [facility] Hematocrit 43.7 37.5 - 51.0 % 01/04/2024 5:25 AM [facility] MCV 88.6 79.0 - 97.0 fL 01/04/2024 5:25 AM [facility] MCH 29.0 26.6 - 33.0 pg 01/04/2024 5:25 AM [facility] MCHC 32.7 31.5 - 35.7 g/dL 01/04/2024 5:25 AM [facility] RDW 15.4 12.3 - 15.4 % 01/04/2024 5:25 AM [facility] RDW-SD 49.9 37.0 - 54.0 fl 01/04/2024 5:25 AM [facility] MPV 11.0 6.0 - 12.0 fL 01/04/2024 5:25 AM [facility] Platelets 152 140 - 450 10*3/mm3 01/04/2024 5:25 AM [facility] Blood Venipuncture / Unknown 01/04/2024 4:04 AM EST 01/04/2024 5:18 AM EST Tyrone Vee MD LAB BLOOD ORDERABLES Final Resu lt [facility]
[address] [place] [address], * Magnesium (01/04/2024 4:04 AM EST) [facility] Magnesium 1.9 1.6 - 2.4 mg/dL 01/04/2024 5:57 AM [facility] Blood Venipuncture / Unknown 01/04/2024 4:04 AM EST 01/04/2024 5:18 AM EST Tyrone Vee MD LAB BLOOD ORDERABLES Final Resu lt [facility]
[address] [place] [address], * POC Glucose Once (01/03/2024 5:46 PM EST) Glucose 116 70 - 130 mg/dL 01/03/2024 5:47 PM EST [facility] Blood 01/03/2024 5:46 PM EST 01/03/2024 5:47 PM EST us Hank Hitchcock MD POINT OF CARE TEST ORDERABLE S Final Result [facility]
[address] [place] [address], [place] [phone] * POC Glucose Once (01/03/2024 11:32 AM EST) Glucose 104 70 - 130 mg/dL 01/03/2024 5:21 PM EST [facility] Blood 01/03/2024 11:3 2 AM EST 01/03/2024 5:21 PM EST us Hank Hitchcock MD POINT OF CARE TEST ORDERABLE S Final Result Performing Organization Address City/[facility]/ZIP Co de Phone Number [facility]
[address] [place] [address], [place] [phone] * POC Glucose Once (01/03/2024 5:25 AM EST) Glucose 100 70 - 130 mg/dL 01/03/2024 5:28 AM EST [facility] Blood 01/03/2024 5:25 AM EST 01/03/2024 5:28 AM EST us Hank Hitchcock MD POINT OF CARE TEST ORDERABLE S Final Result Performing Organization Address City/[facility]/ZIP Co de Phone Number [facility]
[address] [place] [address], [place] [phone] * (ABNORMAL) Blood Gas, Venous With Co-Ox (01/03/2024 4:23 AM EST) Site Nurse/Dr Shi 01/03/2024 4:24 AM [facility] pH, Venous 7.355 7.310 - 7.410 pH Units 01/03/2024 4:24 AM [facility]ER[facility] pCO2, Venous 51.3(H) 41.0 - 51.0 mm Hg 01/03/2024 4:24 AM [facility] Comment:83 Value above refer ence range pO2, Venous 18.5(L) 27.0 - 53.0 mm Hg 01/03/2024 4:24 AM [facility] Comment:84 Value below refer ence range HCO3, Venous 28.6(H) 22.0 - 28.0 mmol/L 01/03/2024 4:24 AM [facility]ER[facility] Base Excess, Venous 2.0 -2.0 - 2.0 mmol/L 01/03/2024 4:24 AM [facility] Hemoglobin, Blood Gas 15.1 13.5 - 17.5 g/dL 01/03/2024 4:24 AM [facility] Oxyhemoglobin Venous 27.7 % 12/13 4:24 AM [facility] Comment:84 Value below refer ence range Methemoglobin Venous 0.5 % 12/13 4:24 AM [facility] Carboxyhemoglobin Venous 1.2 % 01/03/2024 4:24 AM [facility] CO2 Content 30.2 22 - 33 mmol/L 01/03/2024 4:24 AM [facility] Temperature 37.0 01/03/2024 4:24 AM [facility] Barometric Pressure for Blood Gas 01/03/2024 4:24 AM [facility] Comment:N/A Modality Nasal Cannula 01/03/2024 4:24 AM [facility] FIO2 28 % 01/03/2024 4:24 AM [facility] Rate 0 Breaths/ minute 01/03/2024 4:24 AM [facility] PIP 0 cmH2O 01/03/2024 4:24 AM EST [facility] Comment:Meter: [id number] Senior Ui Developer: [id number] IPAP 0 01/03/2024 4:24 AM EST [facility] THER[facility] EPAP 0 01/03/2024 4:24 AM EST [facility] Venous Blood 01/03/2024 4:23 AM EST 01/03/2024 4:23 AM EST us Hank Hitchcock MD LAB BLOOD ORDERABLES Final R esult [facility]
[address] * (ABNORMAL) Basic Metabolic Panel (01/03/2024 4:23 AM EST) Glucose 102(H) 65 - 99 mg/dL 01/03/2024 6:15 AM [facility] BUN 20 8 - 23 mg/dL 01/03/2024 6:15 AM [facility] Creatinine 1.13 0.76 - 1.27 mg/dL 01/03/2024 6:15 AM [facility] Sodium 142 136 - 145 mmol/L 01/03/2024 6:15 AM [facility] Potassium 4.9 3.5 - 5.2 mmol/L 01/03/2024 6:15 AM [facility] Chloride 107 98 - 107 mmol/L 01/03/2024 6:15 AM [facility] CO2 26.0 22.0 - 29.0 mmol/L 01/03/2024 6:15 AM [facility] Calcium 8.7 8.6 - 10.5 mg/dL 01/03/2024 6:15 AM [facility] BUN/Creatinine Ratio 17.7 7.0 - 25.0 01/03/2024 6:15 AM [facility] Anion Gap 9.0 5.0 - 15.0 mmol/L 01/03/2024 6:15 AM EST [facility] eGFR 66.9 >60.0 mL/min/1.7 3 01/03/2024 6:15 AM EST [facility] Blood Venipuncture / Unknown 01/03/2024 4:23 AM EST 01/03/2024 5:30 AM EST [facility] - 01/03/2024 6:15 AM EST GFR Normal >60 Chronic Kidney Disease <60 Kidney Failure <15 The GFR formula is only valid for adults with stable renal function between ages 18 and 70. us Tyrone eVe MD LAB BLOOD ORDERABLES Final Resu lt [facility]
[address] [place] [address], * (ABNORMAL) CBC (No Diff) (01/03/2024 4:23 AM EST) WBC 14.22(H) 3.40 - 10.80 10*3/mm3 01/03/2024 5:51 AM EST [facility] RBC 5.04 4.14 - 5.80 10*6/mm3 01/03/2024 5:51 AM [facility] Hemoglobin 14.1 13.0 - 17.7 g/dL 01/03/2024 5:51 AM EST [facility] Hematocrit 44.7 37.5 - 51.0 % 01/03/2024 5:51 AM [facility] MCV 88.7 79.0 - 97.0 fL 01/03/2024 5:51 AM EST [facility] MCH 28.0 26.6 - 33.0 pg 01/03/2024 5:51 AM [facility] MCHC 31.5 31.5 - 35.7 g/dL 01/03/2024 5:51 AM [facility] RDW 15.3 12.3 - 15.4 % 01/03/2024 5:51 AM EST [facility] RDW-SD 49.3 37.0 - 54.0 fl 01/03/2024 5:51 AM EST [facility] MPV 11.0 6.0 - 12.0 fL 01/03/2024 5:51 AM EST [facility] Platelets 160 140 - 450 10*3/mm3 01/03/2024 5:51 AM EST [facility] Blood Venipuncture / Unknown 01/03/2024 4:23 AM EST 01/03/2024 5:40 AM EST us Tyrone Vee MD LAB BLOOD ORDERABLES Final Resu lt Performing Organization Address [facility]/ZIP Co de Phone Number [facility]
[address] [place] [address], * Magnesium (01/03/2024 4:23 AM EST) Magnesium 2.3 1.6 - 2.4 mg/dL 01/03/2024 6:15 AM EST [facility] Blood Venipuncture / Unknown 01/03/2024 4:23 AM EST 01/03/2024 5:30 AM EST us Tyrone Vee MD LAB BLOOD ORDERABLES Final Resu lt Performing Organization Address City/[facility]/ZIP Co de Phone Number [facility]
[address] [place] [address], * POC Glucose Once (01/02/2024 11:35 PM EST) Glucose 121 70 - 130 mg/dL 01/02/2024 11:37 PM EST [facility] Blood 01/02/2024 11:3 5 PM EST 01/02/2024 11:37 PM EST us Hank Hitchcock MD POINT OF CARE TEST ORDERABLE S Final Result Performing Organization Address [facility]/ZIP Co de Phone Number [facility]
[address] [place] [address], [place] [phone] * POC Glucose Once (01/02/2024 5:37 PM EST) Glucose 115 70 - 130 mg/dL 01/02/2024 5:38 PM EST [facility] Blood 01/02/2024 5:37 PM EST 01/02/2024 5:38 PM EST Hank Hitchcock MD POINT OF CARE TEST ORDERABLE S Final Result Performing Organization Address [facility] Co de Phone Number [facility]
[address] [place] [address], [place] [phone] * MRI Brain Without Contrast (01/02/2024 3:04 [...] MD 01/02/2024 3:28 PM EST Workstation ID: [id number] Narrative 01/02/2024 3:28 PM EST MRI ANGIOGRAM HEAD WO CONTRAST, MRI BRAIN WO CONTRAST Date of Exam: 01/02/2024 2:00 PM EST Indication: Stroke, follow up. Comparison: Noncontrast head CT and head CTA from the same date. Technique: ??Routine 3-D hksx-wa-[id number] gradient echo imaging was obtained of the [...] from the same date. Technique: Routine 3-D xwaf-mm-jfrfyc gradient echo imaging was obtainedof the head [...] MD 01/02/2024 3:28 PM EST Workstation ID: [id number] us Hank Hitchcock MD IMG MRI ORDERABLES [...] MD 01/02/2024 3:28 PM EST Workstation ID: [id number] Narrative 01/02/2024 3:28 PM EST MRI ANGIOGRAM HEAD WO CONTRAST, MRI BRAIN WO CONTRAST Date of Exam: 01/02/2024 2:00 PM EST Indication: Stroke, follow up. Comparison: Noncontrast head CT and head CTA from the same date. Technique: ??Routine 3-D kpni-qs-yknpsc gradient echo imaging was obtained of the [...] from the same date. Technique: Routine 3-D rxwo-zx-zjtctr gradient echo imaging was obtainedof the head [...] MD 01/02/2024 3:28 PM EST Workstation ID: [id number] Malcom Contreras MD IMG MRI ORDERABLES Final Re sult * POC Glucose Once (01/02/2024 11:41 AM EST) Pathologist [facility] Glucose 124 70 - 130 mg/dL 01/02/2024 11:42 AM EST [facility] Blood 01/02/2024 11:4 1 AM EST 01/02/2024 11:42 AM EST Hank Hitchcock MD POINT OF CARE TEST ORDERABLE S Final Result [facility]
[address] [place] [address], * (ABNORMAL) Phosphorus (01/02/2024 7:31 AM EST) Phosphorus 4.8(H) 2.5 - 4.5 mg/dL 01/02/2024 8:53 AM [facility] Blood Venipuncture / Unknown 01/02/2024 7:31 AM EST 01/02/2024 7:57 AM EST Valdemar Curran [employer] LAB BLOOD ORDERABLES Sarah l Result [facility]
[address] [place] [address], * (ABNORMAL) CBC Auto Differential (01/02/2024 7:31 AM EST) WBC 12.19(H) 3.40 - 10.80 10*3/mm3 01/02/2024 8:13 AM [facility] RBC 5.20 4.14 - 5.80 10*6/mm3 01/02/2024 8:13 AM [facility] Hemoglobin 14.5 13.0 - 17.7 g/dL 01/02/2024 8:13 AM [facility] Hematocrit 45.7 37.5 - 51.0 % 01/02/2024 8:13 AM [facility] MCV 87.9 79.0 - 97.0 fL 01/02/2024 8:13 AM [facility] MCH 27.9 26.6 - 33.0 pg 01/02/2024 8:13 AM [facility] MCHC 31.7 31.5 - 35.7 g/dL 01/02/2024 8:13 AM [facility] RDW 14.8 12.3 - 15.4 % 01/02/2024 8:13 AM [facility] RDW-SD 47.4 37.0 - 54.0 fl 01/02/2024 8:13 AM [facility] MPV 10.8 6.0 - 12.0 fL 01/02/2024 8:13 AM [facility] Platelets 165 140 - 450 10*3/mm3 01/02/2024 8:13 AM [facility] Neutrophil % 91.7(H) 42.7 - 76.0 % 01/02/2024 8:13 AM [facility] Lymphocyte % 5.0(L) 19.6 - 45.3 % 01/02/2024 8:13 AM [facility] Monocyte % 2.7(L) 5.0 - 12.0 % 01/02/2024 8:13 AM [facility] Eosinophil % 0.0(L) 0.3 - 6.2 % 01/02/2024 8:13 AM [facility] Basophil % 0.1 0.0 - 1.5 % 01/02/2024 8:13 AM [facility] Immature Grans % 0.5 0.0 - 0.5 % 01/02/2024 8:13 AM [facility] Neutrophils, Absolute 11.18(H) 1.70 - 7.00 10*3/mm3 01/02/2024 8:13 AM [facility] Lymphocytes, Absolute 0.61(L) 0.70 - 3.10 10*3/mm3 01/02/2024 8:13 AM [facility] Monocytes, Absolute 0.33 0.10 - 0.90 10*3/mm3 01/02/2024 8:13 AM [facility] Eosinophils, Absolute 0.00 0.00 - 0.40 10*3/mm3 01/02/2024 8:13 AM [facility] Basophils, Absolute 0.01 0.00 - 0.20 10*3/mm3 01/02/2024 8:13 AM [facility] Immature Grans, Absolute 0.06(H) 0.00 - 0.05 10*3/mm3 01/02/2024 8:13 AM [facility] nRBC 0.0 0.0 - 0.2 /100 WBC 01/02/2024 8:13 AM [facility] Blood Venipuncture / Unknown 01/02/2024 7:31 AM EST 01/02/2024 7:57 AM EST Hank Hitchcock MD LAB BLOOD ORDERABLES Final R esult Performing Organization Address [facility]/ZIP Co de Phone Number [facility]
[address] [place] [address], * (ABNORMAL) Magnesium (01/02/2024 7:31 AM EST) Pathologist [facility] Magnesium 2.5(H) 1.6 - 2.4 mg/dL 01/02/2024 8:53 AM EST [facility] Blood Venipuncture / Unknown 01/02/2024 7:31 AM EST 01/02/2024 7:57 AM EST Tyrone Vee MD LAB BLOOD ORDERABLES Final Resu lt Performing Organization Address [facility]/[place] de Phone Number [facility]
[address] [place] [address], * (ABNORMAL) Basic Metabolic Panel (01/02/2024 7:31 AM EST) Pathologist [facility] Glucose 121(H) 65 - 99 mg/dL 01/02/2024 8:53 AM EST [facility] BUN 15 8 - 23 mg/dL 01/02/2024 8:53 AM EST [facility] Creatinine 1.38(H) 0.76 - 1.27 mg/dL 01/02/2024 8:53 AM EST [facility] Sodium 144 136 - 145 mmol/L 01/02/2024 8:53 AM EST [facility] Potassium 4.5 3.5 - 5.2 mmol/L 01/02/2024 8:53 AM EST [facility] Comment:Slight hemolysis det ected by analyzer. Result may be falsely elevated. Chloride 109(H) 98 - 107 mmol/L 01/02/2024 8:53 AM EST [facility] CO2 19.0(L) 22.0 - 29.0 mmol/L 01/02/2024 8:53 AM EST [facility] Calcium 8.3(L) 8.6 - 10.5 mg/dL 01/02/2024 8:53 AM EST [facility] BUN/Creatinine Ratio 10.9 7.0 - 25.0 01/02/2024 8:53 AM EST [facility] Anion Gap 16.0(H) 5.0 - 15.0 mmol/L 01/02/2024 8:53 AM EST [facility] eGFR 52.7(L) >60.0 mL/min/1.7 3 01/02/2024 8:53 AM EST [facility] Blood Venipuncture / Unknown 01/02/2024 7:31 AM EST 01/02/2024 7:57 AM EST Narrative [facility] - 01/02/2024 8:53 AM EST GFR Normal >60 Chronic Kidney Disease <60 Kidney Failure <15 The GFR formula is only valid for adults with stable renal function between ages 18 and 70. us Hank Hitchcock MD LAB BLOOD ORDERABLES Final R esult [facility]
[address] [place] [address], * POC Glucose Once (01/02/2024 4:59 AM EST) Glucose 129 70 - 130 mg/dL 01/02/2024 5:01 AM EST [facility] Blood 01/02/2024 4:59 AM EST 01/02/2024 5:01 AM EST us Hank Hitchcock MD POINT OF CARE TEST ORDERABLE S Final Result [facility]
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 Otherwise normal CT angiogram of the head as above. Electronically Signed: Ivan Jon MD 01/02/2024 10:02 AM EST Workstation ID: [id number] Narrative 01/02/2024 10:[address] ANGIOGRAM [...] MD 01/02/2024 10:02 AM EST Workstation ID: [id number] Arely Duffy Corriemaile ROSEMARY IMG CT ORDERABLES [...] MD 01/02/2024 8:25 AM EST Workstation ID: [id number] Narrative 01/02/2024 8:[address] HEAD [...] MD 01/02/2024 8:25 AM EST Workstation ID: [id number] us Hank Hitchcock MD IM CT ORDERABLES Final Resu lt * (ABNORMAL) POC Glucose Once (01/02/2024 12:14 AM EST) Glucose 177(H) 70 - 130 mg/dL 01/02/2024 12:16 AM EST [facility] Blood 01/02/2024 12:1 4 AM EST 01/02/2024 12:16 AM EST Hank Hitchcock MD POINT OF CARE TEST ORDERABLE S Final Result Performing Organization Address [facility] Co de Phone Number [facility]
[address] [place] [address], * EEG AWAKE OR ASLEEP PORTABLE (01/01/2024 7:04 PM EST) Impressions NEUROLOGY - 01/01/2024 7:32 PM EST Diffuse cerebral dysfunction of moderate degree, nonspecific No ongoing seizures are seen This report is transcribed using the [employer] dictation system. ?? Narrative NEUROLOGY - 01/01/2024 [...] ORDERABLES Final R esult Performing Organization Address [facility]/ZIP Co de Phone Number NEUROLOGY * (ABNORMAL) POC Glucose Once (01/01/2024 6:13 PM EST) Glucose 252(H) 70 - 130 mg/dL 01/01/2024 6:15 PM EST [facility] Blood 01/01/2024 6:13 PM EST 01/01/2024 6:15 PM EST Hank Hitchcock MD POINT OF CARE TEST ORDERABLE S Final Result [facility]
[address] [place] [address], * CT Head Without Contrast (01/01/2024 5:14 [...] MD 01/01/2024 5:25 PM EST Workstation ID: [id number] Narrative 01/01/2024 5:[address] HEAD [...] MD 01/01/2024 5:25 PM EST Workstation ID: [id number] us Tyrone Vee MD [facility] CT ORDERABLES Final Result * (ABNORMAL) Basic Metabolic Panel (01/01/2024 3:39 PM EST) Glucose 202(H) 65 - 99 mg/dL 01/01/2024 4:18 PM EST [facility] BUN 19 8 - 23 mg/dL 01/01/2024 4:18 PM EST [facility] Creatinine 1.43(H) 0.76 - 1.27 mg/dL 01/01/2024 4:18 PM EST [facility] Sodium 140 136 - 145 mmol/L 01/01/2024 4:18 PM EST [facility] Potassium 4.0 3.5 - 5.2 mmol/L 01/01/2024 4:18 PM EST [facility] Comment:Slight hemolysis det ected by analyzer. Result may be falsely elevated. Chloride 103 98 - 107 mmol/L 01/01/2024 4:18 PM EST [facility] CO2 13.0(L) 22.0 - 29.0 mmol/L 01/01/2024 4:18 PM EST [facility] Calcium 8.6 8.6 - 10.5 mg/dL 01/01/2024 4:18 PM [facility] BUN/Creatinine Ratio 13.3 7.0 - 25.0 01/01/2024 4:18 PM EST [facility] Anion Gap 24.0(H) 5.0 - 15.0 mmol/L 01/01/2024 4:18 PM [facility] eGFR 50.5(L) >60.0 mL/min/1.7 3 01/01/2024 4:18 PM [facility] Blood Structure of left upper limb / Unknown Line / Unknown 01/01/2024 3:39 PM EST 01/01/2024 3:53 PM EST [facility] LABORATORY - 01/01/2024 4:18 PM EST GFR Normal >60 Chronic Kidney Disease <60 Kidney Failure <15 The GFR formula is only valid for adults with stable renal function between ages 18 and 70. us Kenna Manley PA-C LAB BLOOD ORDERABLES Final Result [facility]
[address] [place] [address], * (ABNORMAL) POC Glucose Once (01/01/2024 3:31 PM EST) Glucose 167(H) 70 - 130 mg/dL 01/01/2024 3:33 PM EST [facility] Blood 01/01/2024 3:31 PM EST 01/01/2024 3:33 PM EST Result [facility] Hank Hitchcock MD POINT OF CARE TEST ORDERABLE S Final Result [facility]
[address] [place] [address], [place] [phone] * FL C Arm During Surgery (01/01/2024 2:50 PM EST) Narrative SYSTEMGENERATED, DOCUMENTATION - 01/01/2024 2:51 PM EST This procedure was auto-finalized with no dictation required. Hank Hitchcock MD IMG FLUOROSCOPY ORDERABLES F inal Result * SCANNED - TELEMETRY (01/01/2024) [facility] Onbase ECG ORDERABLES Final Result * SCANNED - TELEMETRY (01/01/2024) [facility] ECG ORDERABLES Final Result documented in this [...] Daily, First dose on Sat01/01/24 at 1715, ([facility]) Take with food if GI upset [...] at 1245, For 1 dose, Group 2 ([place]) Hazardous Drug - Reproductive Risk Only - [...] = Pain Score of 7-10, CPOT 5-8 [[place]] Do not exceed 4 grams of acetaminophen [...] tablet 40 mg 40 mg, Oral, Every Medical Safety Director, First dose on Sat01/07/24 at 0600, Swallow whole; do not crush, split, or chew. Given 01/07/2024 6:08 AM EST 40 mg pantoprazole (PROTONIX) injection 40 mg 40 mg, Intravenous, Every Medical Safety Director, First dose on Sat01/02/24 at 0600, Dilute [...] Daily, First dose on Sat01/01/24 at 1715, ([facility]) Take with food if GI upset [...] at 1245, For 1 dose, Group 2 ([place]) Hazardous Drug - Reproductive Risk Only - [...] Indications: VTE Prophylaxis 2037 (Given - Provider: Toina Stephens, RN) 2018 (Given - Provider: Tonia [...] tablet 40 mg 40 mg, Oral, Every Medical Safety Director, First dose on Sat01/07/24 at 0600, Swallow whole; do not crush, split, or chew. 0608 (Given - Provider: Tonia Stephens, TRUDI) pantoprazole (PROTONIX) injection 40 mg (CANCELED) 40 mg, Intravenous, Every Medical Safety Director, First dose on Sat01/02/24 at 0600, Dilute with 10 mL of 0.9% NaCl and give IV push over 2 minutes., Indications: Gastroesophageal Reflux Disease 0459 (Given - Provider: Marce Prado RN - Comment: [facility] care)0600 (Canceled Entry - Provider: Marce [...] BPA Driven Protocol Open Order & [facility] Electrolyte Replacement Protocol Algorithm to View Details [...] ineffective. documented in this encounter Care Teams Slab Worker Relationship Specialty Start Date End Date Robinson Manley MD [address] [place] [address] PCP - General Family Medicine 07/09/23 documented as of this encounter
--- OUTSIDE RECORDS SUMMARY | 2024-09-29 20:58 | XMS_ITS | Encounter Summary ---
Author Organization [facility]stem Address [address] [place] [address] Care Team Providers Care Asphalt Coater Name Role Phone Robinson Manley MD Primary Care Provider +1- [phone] Reason for Visit * Reason Comments Back Pain Encounter Details Date Type Department Care Team (Late st Contact Info) Description 01/21/2024 3:00 PM EDT Office Visit [facility] NEUROS[facility]ERY [address] [place] [address] Kenna Manley, PANéstorC [address] [facility] [address] [place] [address] S/P lumbar laminectomy (Primary Dx) Social History Tobacco Use Types Packs/Day Years Used Date Smoking Tobacco: Former Cigarettes Q uit: 1974 Passive Smoke Exposure: Past Smokeless Tobacco: Never Tobacco Cessation:Counseling Given: No Alcohol Use Standard Drinks/Week Comments Yes 0 (1 standard drink = 0.6 oz pur e alcohol) BEER PER [facility] Utilities Answer Date Recorded In the past 12 months has [employer], gas, oil, or water [employer] threatened to shut off services in your [...] or training? Not on file Preferred Language Ivorian 01/03/2024 Sex and Gender Information Value Date [...] 3:00 PM EDT [place] 1945 01/21/2024 [id number] CC: s/p L3-4 laminectomy HPI: [place] [...] glasses Allergies Allergen Reactions Triple Antibiotic W/Hydrocortisone [Dovnkhc-Lvrnywxa-Bynemqruh-Hc] Rash Codeine Other (See Comments) Knots on [...] MG/0.1ML nasal spray, Call 911. Don't prime. [place] in 1 nostril for overdose. Repeat in [...] Description 12/15/2024 8:30 AM EST Office Visit [facility] [address] [place] [address] Hannah Martinez APRN [address] [place] [address] 02/04/2025 9:00 AM EDT Office Visit [facility] NEUROLOGY [address] [place] [address] [address] [place] [address] Britany Braxton MD [address] [facility] [address] [place] [address] documented as of this encounter Visit Diagnoses Diagnosis S/P lumbar laminectomy- Primary documented in this encounter Care Teams Asphalt Coater Relationship Specialty Start Date End Date Robinson Manley MD [address] [place] [address] PCP - General Family Medicine 07/09/23 documented as of this encounter
--- OUTSIDE RECORDS SUMMARY | 2024-09-29 20:58 | XMS_ITS | Encounter Summary ---
Author Organization [facility]stem Address [address] [place] [address] Care Team Providers Care Tile Installer Name Role Phone Robinson Manley MD Primary Care Provider +1- [phone] Reason for Referral * Physical Therapy (Routine) - Authorized Specialty Diagnoses / Procedures Referred By Contac t Referred To Contact Physical Therapy Diagnoses S/P lumbar laminectomy Procedures ME OFFICE/OUTPATIENT NEW MODERATE MDM 45 MINUTES Kenna Manley PA-C [address] [place] [address] Phone: tel: fax: [address] [address] Phone: tel: fax: Referral ID Status Reason Start Date Expiration Date Visits Requested Visits Authorized [id number] Authorized Patient Preference 02/18/2024 02/17/2025 1 1 Reason for Visit * Reason Comments Post-op Encounter Details Date Type Department Care Team (Late st Contact Info) Description 02/18/2024 9:30 AM EDT Office Visit [facility] NEUR[facility]ERY [address] [facility] [address] [place] [address] Kenna Manley PA-C [address] [place] [address] S/P lumbar laminectomy (Primary Dx) Social History Tobacco Use Types Packs/Day Years Used Date Smoking Tobacco: Former Cigarettes Q uit: 1974 Passive Smoke Exposure: Past Smokeless Tobacco: Never Tobacco Cessation:Counseling Given: No Alcohol Use Standard Drinks/Week Comments Yes 0 (1 standard drink = 0.6 oz pur e alcohol) BEER PER [facility] Utilities Answer Date Recorded In the [...] or training? Not on file Preferred Language Azerbaijani 01/03/2024 Sex and Gender Information Value Date [...] 9:30 AM EDT [place] 1945 02/18/2024 [id number] CC: s/p L3-4 laminectomy HPI: [place] [...] glasses Allergies Allergen Reactions Triple Antibiotic W/Hydrocortisone [Hssovqj-Ldszlwif-Uzsltqflt-Hc] Rash Codeine Other (See Comments) Knots on my head Current Outpatient Medications: allopurinol (ZYLOPRIM) 100 MG tablet, Take 1 tablet by mouth Daily., Disp: , Rfl: Livalo 4 MG tablet, Take 1 tablet by mouth Every Night., Disp: 90 tablet, Rfl: 1 naloxone (NARCAN) 4 MG/0.1ML nasal spray, Call 911. Don't prime. [place] in 1 nostril for overdose. Repeat in [...] 8:30 AM EST Office Visit [facility] CARDIOLOG[facility] [address] [place] [id number] Hannah Martinez APRN [address] [place] [address] 02/04/2025 9:00 AM EDT Office Visit [facility] NEUROLOGY [address] [facility] [address] [place] [address] Britany Braxton MD [address] [facility] [address] [place] [address] documented as of this encounter Visit Diagnoses Diagnosis S/P lumbar laminectomy- Primary documented in this encounter Care Teams Tile Installer Relationship Specialty Start Date End Date Robinson Manley MD [address] [facility] [place] [place] [address] PCP - General Family Medicine 07/09/23 documented as of this encounter
--- OUTSIDE RECORDS SUMMARY | 2024-09-29 20:58 | XMS_ITS | Encounter Summary ---
[facility] Organization [facility] Address [address] [place] [address] Care Team Providers Care Airport Security Screener Name Role Phone Robinson Manley MD Primary Care Provider +1- [phone] Encounter Details Date Type Department Care Team (Late st Contact Info) Description 01/31/2024 Telephone [facility] [address] [facility] [address] [place] [address] Hank Guzman MD [address] [facility] [address] [place] [address] Social History Tobacco Use Types Packs/Day Years Used Date Smoking Tobacco: Former Cigarettes Q uit: 1974 Passive Smoke Exposure: Past Smokeless Tobacco: Never Alcohol Use Standard Drinks/Week Comments Yes 0 (1 standard drink = 0.6 oz pur e alcohol) BEER PER [facility] Utilities Answer Date Recorded In the past 12 months has [employer], gas, oil, or water [employer] threatened to shut off services in your [...] help finding or keeping work or a orcky b? Not on file 08/19/2023 Disabilities Answer Date Recorded Difficulty Concentrating, Remembering or Making Decisions no 01/01/2024 Difficulty Managing Errands Independently no 01/01/2024 Education Answer Date Recorded Help with school or training? Not on file Preferred Language Algerian 01/03/2024 Sex and Gender Information Value Date [...] Description 12/15/2024 8:30 AM EST Office Visit [facility] [address] [place] [address] Hannah Martinez APRN [address] [place] [address] 02/04/2025 9:00 AM EDT Office Visit [facility] NE[facility] [address] [facility] [address] [place] [address] Britany Braxton MD [address] [facility] [address] [place] [address] documented as of this encounter Visit Diagnoses Not on filedocumented in this encounter Care Teams Airport Security Screener Relationship Specialty Start Date End Date Robinson Manley MD [address] [place] [address] PCP - General Family Medicine 07/09/23 documented as of this encounter
--- OUTSIDE RECORDS SUMMARY | 2024-09-29 20:58 | XMS_ITS | Encounter Summary ---
Author Organization [facility] Address [address] [place] [address] Care Team Providers Care Primary Products Inspectors Name Role Phone Robinson Manley MD Primary Care Provider +1- [phone] Reason for Visit * Reason Comments Med Refill Encounter Details Date Type Department Care Team (Late st Contact Info) Description 02/01/2024 Refill [facility] CARDIOLOGY [address] [place] [address] Carleen Dave APRN [address] [place], [place] [id number] Med Refill Social History Tobacco Use Types Packs/Day Years Used Date Smoking Tobacco: Former Cigarettes Q uit: 1974 Passive Smoke Exposure: Past Smokeless Tobacco: Never Alcohol Use Standard Drinks/Week Comments Yes 0 (1 standard drink = 0.6 oz pur e alcohol) BEER PER [facility] Utilities Answer Date Recorded In the past 12 months has [employer], gas, oil, or water [employer] threatened to shut off services in your [...] or training? Not on file Preferred Language Burmese 01/03/2024 Sex and Gender Information Value Date [...] Description 12/15/2024 8:30 AM EST Office Visit [facility] CARDIOLOG[facility] [address] [place] [id number] Hannah Martinez APRN [address] [place] [address] 02/04/2025 9:00 AM EDT Office Visit [facility] [address] [facility] [address] [place] [address] Britany Braxton MD [address] [facility] [address] [place] [address] documented as of this encounter Visit Diagnoses Diagnosis Atrial fibrillation, unspecified type documented in this encounter Care Teams Primary Products Inspectors Relationship Specialty Start Date End Date Robinson Manley MD [address] [place] [address] PCP - General Family Medicine 07/09/23 documented as of this encounter
--- OUTSIDE RECORDS SUMMARY | 2024-09-29 20:58 | XMS_ITS | Encounter Summary ---
[facility] Address [address] [place] [address] Care Team Providers Care Machine Operator General Name Role Phone Robinson Manley MD Primary Care Provider +1- [phone] Reason for Visit * Reason Comments Hospital Follow Up Visit Encounter Details Date Type Department Care Team (Late st Contact Info) Description 02/05/2024 11:00 AM EDT Office Visit [facility] NE[facility] [address] [facility] [address] [place] [address] Britany Braxton MD [address] [facility] [address] [place] [address] Seizure (Primary Dx) Social History Tobacco Use Types Packs/Day Years Used Date Smoking Tobacco: Former Cigarettes Q uit: 1974 Passive Smoke Exposure: Past Smokeless Tobacco: Never Tobacco Cessation:Counseling Given: Not Answered Alcohol Use Standard Drinks/Week Comments Yes 0 (1 standard drink = 0.6 oz pur e alcohol) BEER PER [facility] [place] [facility] Utilities Answer Date Recorded In the past 12 months has [employer], gas, oil, or water [employer] threatened to shut off services in your [...] or training? Not on file Preferred Language Canadian 01/03/2024 Sex and Gender Information Value Date [...] today in consultation at the request of [facility] for seizures HPI: 78-year-old male with a [...] MG/0.1ML nasal spray, Call 911. Don't prime. [place] in 1 nostril for overdose. Repeat in [...] LAMINECTOMY L3-4; Surgeon: Hank Guzman MD; Location: [facility]; Service: Neurosurgery; Laterality: N/A; SHOULDER ARTHROSCOPY Right [...] lower extremities. Babinski: Negative bilaterally. Co-ordination: Normal suhrxi-sw-tywj, heel to burgos B/L. Rhomberg: Negative. Gait: [...] 8:30 AM EST Office Visit [facility] [address] [address] Hannah Martinez APRN [address] [place] [address] 02/04/2025 9:00 AM EDT Office Visit [facility] NE[facility] [address] [facility] [address] [place] [address] Britany Braxton MD [address] [facility] [address] [place] [address] documented as of this encounter Visit Diagnoses Diagnosis Seizure- Primary Other convulsions documented in this encounter Care Teams Machine Operator General Relationship Specialty Start Date End Date Robinson Manley MD [address] [place] [address] PCP - General Family Medicine 07/09/23 documented as of this encounter
--- OUTSIDE RECORDS SUMMARY | 2024-09-29 20:59 | XMS_ITS | Encounter Summary ---
Author Organization [facility] Address [address] [place] [address] Care Team Providers Care Dip Painter Name Role Phone Cathy Blancas Brennon TROUBLE LOCATER Primary Care Provider +1 [phone] Reason for Visit * Reason Comments Follow-up With Echo Encounter Details Date Type Department Care Team (Late st Contact Info) Description 01/07/2023 9:30 AM EST Office Visit [facility] CARDIOLOG[facility] [address] [place] [address] Carleen Dave APRN [address] [place], [place] [id number] Atrial fibrillation, unspecified type; Hypercholesterolemia; Coronary artery disease involving [place] [...] AM ESTAssociated Problem(s): Coronary artery disease involving [place] heart without angina pectoris Very mild, on [...] Allergies Allergen Reactions ??? Triple Antibiotic W/Hydrocortisone [Oxiecjc-Lqgsjodb-Iosdufihk-Hc] Rash Current Outpatient Medications: ??? betamethasone dipropionate [...] Refill: 1 3. Coronary artery disease involving [place] [...] [facility] [address] [place] [phone] Hannah Martinez APRN [address] [place] [address] 02/04/2025 9:00 AM EDT Office Visit [facility] NEUROLOGY [address] [facility] [address] [place] [address] Britany Braxton MD [address] [facility] [address] [place] [address] documented as of this encounter [...] Allergen Reactions ? ? Triple Antibiotic W/Hydrocortisone [Qvcbujo-Mxqzdbya-Twquyfedf-Hc] Rash Current Outpatient Medications: ? ? betamethasone [...] Date/Time: 01/07/2023 11:06 AM Performed by: Carleen Daev APRN Authorized by: Carleen Dave APRN Comparison: [...] Refill: 1 3. 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
--- OUTSIDE RECORDS SUMMARY | 2024-09-29 20:59 | XMS_ITS | Encounter Summary ---
Author Organization [facility] ystem Address [address] [place] [address] Care Team Providers Care Turf And Grounds Supervisor Name Role Phone Robinson Manley MD Primary Care Provider +1- [phone] Reason for Visit * Auth/Cert (Routine) Specialty Diagnoses / Procedures Referred By Contac t Referred To Contact Diagnoses Spinal stenosis of lumbar region, unspecified whether neurogenic claudication present Spinal stenosis of lumbar region, unspecified whether neurogenic claudication present [M48.061] Procedures ME [place]ILMORE FACETECTOMY & FORAMOTOMY 1 VRT SGM LUMBAR LUMBAR LAMINECTOMY DISCECTOMY DECOMPRESSIO, N POSTERIOR 1-2 LEVELS, L3-4 Referral ID Status Reason Start Date Expiration Date Visits Re quested Visits Authorized [id number] 1 1 Encounter Details Date Type Department Care Team (Late st Contact Info) Description 01/01/2024 1:31 PM EST Anesthesia Event [facility] OR [address] [place] [address] Blake [place] MD [address] [place] [address] Anesthesia Record Procedure Summary Procedure Name Responsible [...] oz pur e alcohol) BEER PER [facility] Utilities Answer Date Recorded In [...] or training? 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 Plan discussed with OUTPATIENT CASE MANAGER. CODE STATUS: documented in this encounter Plan of Treatment Upcoming Encounters Date Type Department Care Team (Late st Contact Info) Description 12/15/2024 8:30 AM EST Office Visit [facility] CARDIOLOGY [address] [place] [address] Hannah Martinez APRN [address] [place] [address] 02/04/2025 9:00 AM EDT Office Visit [facility] NEUROLOGY [address] [facility] [address] [place] [address] Britany Braxton MD 210 [facility] [address] [place] [address] documented as of this encounter [...] and Staff Patient location during procedure: OR OUTPATIENT CASE MANAGER/CAA: Junior Arturo Iglesias CRNA Indications and Patient [...] mg documented in this encounter Care Teams Turf And Grounds Supervisor Relationship Specialty Start Date End Date Robinson Manley MD [address] [place] [address] PCP - General Family Medicine 07/09/23 documented as of this encounter
--- OUTSIDE RECORDS SUMMARY | 2024-09-29 20:59 | XMS_ITS | Encounter Summary ---
[facility] Address [address] [place] [address] Care Team Providers Care Field Consultant Name Role Phone Robinson Manley MD Primary Care Provider [phone] Reason for Visit * Reason Comments Follow-up 6 Month follow up Encounter Details Date Type Department Care Team (Late st Contact Info) Description 12/10/2023 3:00 PM EST Office Visit [facility] [address] [place] [address] Hannah Martinez, [employer] [address] [place] [address] Atrial fibrillation, unspecified type (Primary Dx); Essential hypertension; Coronary artery disease involving [place] heart without angina pectoris, unspecified vessel or [...] AM ESTAssociated Problem(s): Coronary artery disease involving [place] heart without angina pectoris Left heart cath [...] [x] Allergies Allergen Reactions Triple Antibiotic W/Hydrocortisone [[id number]-Qxfmrczf-Cxoxqykdu-Hc] Rash Codeine Other (See Comments) Knots on [...] completing prednisone. 3. Coronary artery disease involving [place] heart without angina pectoris, unspecified vessel or [...] [facility] [address] [place] [id number] Hannah Martinez APRN [address] [place] [id number] 02/04/2025 9:00 AM EDT Office Visit [facility] [address] [facility] [address] [place] [address] Britany Braxton MD [address] [facility] [address] [place] [address] documented as of this encounter [...] [x] Allergies Allergen Reactions Triple Antibiotic W/Hydrocortisone [Hczwjux-Hbrgrubw-Tqddmnhcf-Hc] Rash Codeine Other (See Comments) Knots on [...] (73 ) Wt 97.5 kg (215 lb) GyV085% BMI 28.37 kg/m?? Estimated body mass index [...] completing prednisone. 3. Coronary artery disease involving [place] heart without angina pectoris,unspecified vessel or lesion [...] Unspecified essential hypertension Coronary artery disease involving [place] heart without angina pectoris, unspecified vessel or lesion type documented in this encounter Care Teams Field Consultant Relationship Specialty Start Date End Date Robinson Manley MD [address] [place] [address] [place] [address] PCP - General Family Medicine 07/09/23 documented as of this encounter
--- OUTSIDE RECORDS SUMMARY | 2024-09-29 20:59 | XMS_ITS | Encounter Summary ---
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 Role Phone Robinson Manley MD Primary Care Provider [phone] Reason for Visit * Auth/Cert (Routine) Specialty Diagnoses / Procedures Referred By Contac t Referred To Contact Diagnoses Spinal stenosis of lumbar region, unspecified whether neurogenic claudication present Spinal stenosis of lumbar region, unspecified whether neurogenic claudication present [M48.061] Procedures AR GILMORE FACETECTOMY & FORAMOTOMY 1 VRT SGM LUMBAR LUMBAR LAMINECTOMY DISCECTOMY DECOMPRESSIO, N POSTERIOR 1-2 LEVELS, L3-4 Referral ID Status Reason Start Date Expiration Date Visits Re quested Visits Authorized [id number] 1 1 Encounter Details Date Type Department Care Team (Late st Contact Info) Description 01/01/2024 12:13 PM EST - 01/01/2024 2:32 PM EST Surgery [facility] OR [address] [place] [id number] Hank Hitchcock MD [address] [facility] [address] [place] [address] LUMBAR LAMINECTOMY L3-4 [55921 (CPT??)] Social History Tobacco Use Types Packs/Day [...] or training? Not on file Preferred Language Venezuelan 12/23/2023 Sex and Gender Information Value Date [...] from the original note were not included. [facility] Date of Admission: 01/01/2024 [...] [address] [place] [address] [facility] [address] Kenna Manley PA-C Follow up in 2 week(s). Specialty: Neurosurgery Contact information: [address] [facility] [address] Contact information for after-discharge care Destination [facility] . Service: Long-Term Contact information: [address] [facility] [address] Kenna Manley PA-C 01/07/24 14:06 EST Cosigned by Hank Hitchcock MD at 01/07/2024 2:52 PM EST Associated attestation - Hank Hitchcock MD - 01/07/2024 2:52 PM EST I have reviewed this documentation and agree. * Stacey Kenney RN - 01/06/2024 11:46 AM EST Images from the original note were not included. 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 Male) Date of 1945 Social Security Number [id number] [address] [place], [place] [address] Home Phone Confucianism None Marital Status Single Admission Date 01/01/24 Admission Type Elective Admitting Provider Hank Hitchcock MD Attending Provider Hank Hitchcock MD Department, Room/Bed [address], S380/1 Discharge Date Discharge Disposition Discharge Destination Attending Provider: Hank Hitchcock MD Allergies: Triple Antibiotic W/hydrocortisone [Euhfxmw-dguatdkx-ltqvmspuj-hc], Codeine Isolation: None Infection: None Code Status: No CPR Ht: 185.4 cm (73 ) Wt: 99.8 kg (220 lb 0.3 oz) Admission Cmt: None Principal Problem: None Active Insurance as of 01/01/2024 Primary Coverage Payor Plan Insurance Group Employer/Plan Group ANTHEM MEDICARE REPLACEMENT ANTHEM MEDICARE ADVANTAGE [id number] Payor Plan Address Payor Plan Phone Number Payor Plan Fax Number Effective Dates [address] 11/11/2018 - None Entered [facility] [id number] Subscriber Name Subscriber Date Member ID SANTO TERRELL 1945 [id number] Emergency Contacts Jamb Cutter (Rel.) Home Phone Work Phone Mobile Phone FITO LEDESMA (Relative) [phone] -- -- CATHY TERRELL (Daughter) -- -- [phone] Physical Therapy Notes (most recent note) Brandon [...] Atrial fibrillation Hypercholesterolemia Coronary artery disease involving [place] heart without angina pectoris Essential hypertension Abnormal [...] Hank Hitchcock MD; Location: [facility]; Service: Neurosurgery; Laterality: N/A; SHOULDER ARTHROSCOPY Right [...] Mobility rolling left;rolling right - Rolling Left [place] (Bed Mobility) minimum assist (75% patient effort);verbal cues -CS Rolling Right [place] (Bed Mobility) minimum assist (75% patient effort);verbal cues -CS Assistive Device (Bed Mobility) bed rails;draw sheet - Row Name 01/03/24 144 Transfers Transfers bed-chair transfer;sit-stand transfer;stand-sit transfer - Row Name 01/03/24 144 Bed-Chair Transfer Bed-Chair [place] (Transfers) dependent (less than 25% patient effort);2 person assist;verbal cues -CS Assistive Device (Bed-Chair Transfers) lift device - Row Name 01/03/241446 Sit-Stand Transfer Sit-Stand [place] (Transfers) minimum assist (75% patient effort);2 person assist;verbal cues -CS Assistive Device (Sit-Stand Transfers) walker, front-wheeled - Row Name 01/03/24 144 Stand-Sit Transfer Stand-Sit [place] (Transfers) minimum assist (75% patient effort);2 person [...] Name 01/03/24 1447 Lower Body Dressing Assessment/Training [place] Level (Lower Body Dressing) don;socks;dependent (less than 25% patient effort) - Position (Lower Body Dressing) supine - Row Name 01/03/24 1447 Self-Feeding Assessment/Training [place] Level (Feeding) liquids to mouth;set up;finger foods [...] Type Rocio Fuentes OT Occupational Therapist Goals/Plan [facility] Name 01/03/24 144 Transfer Goal 1 (OT) Activity/Assistive Device (Transfer Goal 1, OT) yzl-id-ojzka/ecncn-cc-zct;toilet - [place] Level/Cues Needed (Transfer Goal 1, OT) minimum assist (75% or more patient effort) - Time Frame (Transfer Goal 1, OT) half-way goal (LTG);10 days -CS Progress/Outcome (Transfer Goal 1, OT) goal ongoing -CS Row Name 01/03/24 1449 Dressing Goal 1 (OT) Activity/Device (Dressing Goal 1, OT) lower body dressing -CS [place]/Cues Needed (Dressing Goal 1, OT) minimum assist (75% or more patient effort) -CS Time Frame (Dressing Goal 1, OT) terminal supervisor goal (LTG);10 days -CS Strategies/Barriers (Dressing Goal 1, OT) don/doff socks w/ AAD -CS Progress/Outcome (Dressing Goal 1, OT) goal ongoing -CS Row Name 01/03/24 1449 Toileting Goal 1 (OT) Activity/Device (Toileting Goal 1, OT) adjust/manage clothing;perform perineal hygiene -CS [place] Level/Cues Needed (Toileting Goal 1, OT) moderate assist (50-74% patient effort) -CS Time Frame (Toileting Goal 1, OT) half-way goal (LTG);10 days -CS Progress/Outcome (Toileting Goal 1, OT) goal ongoing -CS Row Name 01/03/24 144 Therapy Assessment/Plan (OT) Planned Therapy Interventions (OT) [...] Therapist Occupational Therapy Education Title: PT OT SUPERVISOR LANDSCAPE Therapies (In Progress) Topic: Occupational Therapy (In [...] Oliver Initials Effective Dates Name Provider Type [facility] 07/13/21 - Rocio Wilson OT Occupational Therapist [...] Re-Cert Due Date 01/13/24 -CS Timed Charges 19528 - OT Therapeutic Activity Minutes 18 -CS 14655 - OT Self Care/Mgmt Minutes 5 -CS [...] Description Service Date Service Provider Modifiers Qty 47693434349 HC OT THERAPEUTIC ACT EA 15 MIN 01/03/2024 Rocio Wilson OT GO 1 31395417902 HC OT SELF CARE/MGMT/TRAIN EA 15 MIN 01/03/2024 Rocio Wilson OT GO 1 68269283473 HC OT EVAL MOD COMPLEXITY 3 01/03/2024 Rocio Wilson OT GO 1 80531453396 HC OT THER SUPP EA 15 MIN [...] sent through Care Everywhere. * Spinal Stenosis Yjre-ix-Qdhg (Venezuelan) * Seizure Adult Jyrl-yw-Zgak (Venezuelan) * Gout Ecaz-oc-Aiql (Venezuelan) * Understanding Your Risk for Falls (Venezuelan) * How to Use an Incentive Spirometer (Venezuelan) * How to Prevent Constipation After Surgery (Venezuelan) documented in this encounter Medications at Time of Discharge allopurinol (ZYLOPRIM) 100 MG tablet Take 1 tablet by mouth Daily. 05/29/2023 Livalo 4 MG tabletIndications :Hypercholesterol emia Take 1 tablet by mouth Every Night. 90 tablet 1 07/09/2023 naloxone (NARCAN) 4 MG/0.1ML nasal spray Call 911. Don't prime. [place] in 1 nostril for overdose. Repeat in [...] from the original note were not included. [facility] PROGRESS NOTE Patient Name: [...] and Transportation: PT recs rehab, bed at [facility] awaiting precert Expected Discharge Expected Discharge Date: 01/08/2024; Expected Discharge Time: DVT prophylaxis: Medical and mechanical DVT prophylaxis orders are present. AM-PAC 6 Clicks Score (PT): 18 (01/07/24 0816) CODE STATUS: Code Status and Medical Interventions: Ordered at: 01/01/24 7661 Medical Intervention Limits: NO artificial nutrition NO [...] Manley PA-C - 01/07/2024 9:04 AM EST [facility] NEUROSURGERY PROGRESS NOTE 01/07/24 [...] from the original note were not included. [facility] PROGRESS NOTE Patient Name: [...] Status and Medical Interventions: Ordered at: 01/01/24 2501 Medical Intervention Limits: NO artificial nutrition NO [...] twice daily and continue indefinitely. Outpatient follow-up [facility] [place] neurology with Dr. Braxton) 3 to 4 months. Comment: The patient is apprised of the [place] statute on driving. 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 I discussed the patients findings and my recommendations with patient and family Malcom Contreras MD 01/06/24 12:05 EST * Kenna Manley PA-C - 01/06/2024 9:13 AM EST [facility] NEUROSURGERY PROGRESS NOTE 01/06/24 [...] 40 mg, Intravenous, Q AM, Valdemar Curran, CLAIMS SUPPORT SPECIALIST, 40 mg at 01/06/24 0529 polyethylene glycol [...] from the original note were not included. [facility] PROGRESS NOTE Patient Name: [...] Status and Medical Interventions: Ordered at: 01/01/24 3956 Medical Intervention Limits: NO artificial nutrition NO intubation (DNI) Code Status (Patient has no pulse and is not breathing): No CPR (Do Not Attempt to Resuscitate) Medical Interventions (Patient has pulse or is breathing): Limited Support Brown Rodriguez MD 01/05/24 * Sophie Aponte PA-C - 01/05/2024 9:46 AM EST [facility] NEUROSURGERY PROGRESS NOTE 01/05/24 [...] 40 mg, Intravenous, Q AM, Valdemar Curran, CLAIMS SUPPORT SPECIALIST, 40 mg at 01/05/24 0459 polyethylene glycol [...] from the original note were not included. [facility] PROGRESS NOTE Patient Name: [...] from the same date. Technique: Routine 3-D bwqg-ms-eunwov gradient echo imaging was obtained of the [...] MD 01/02/2024 3:28 PM EST Workstation ID: [id number] MRI Brain Without Contrast Result Date: 01/02/2024 MRI ANGIOGRAM HEAD WO CONTRAST, MRI BRAIN WO CONTRAST Date of Exam: 01/02/2024 2:00 PM EST Indication: Stroke, follow up. Comparison: Noncontrast head CT and head CTA from the same date. Technique: Routine 3-D gpov-jt-asndad gradient echo imaging was obtained of the [...] MD 01/02/2024 3:28 PM EST Workstation ID: [id number] Results for orders placed in visit on [...] Status and Medical Interventions: Ordered at: 01/01/24 5906 Medical Intervention Limits: NO artificial nutrition NO intubation (DNI) Code Status (Patient has no pulse and is not breathing): No CPR (Do Not Attempt to Resuscitate) Medical Interventions (Patient has pulse or is breathing): Limited Support Brown Rodriguez MD 01/04/24 * Sophie Aponte PA-C - 01/04/2024 11:50 AM EST [facility] NEUROSURGERY PROGRESS NOTE 01/04/24 [...] 40 mg, Intravenous, Q AM, Valdemar Curran, CLAIMS SUPPORT SPECIALIST, 40 mg at 01/04/24 0430 polyethylene glycol [...] Hank Hitchcock MD; Location: [facility]; Service: Neurosurgery; Laterality: N/A; SHOULDER ARTHROSCOPY Right [...] Carleen Dave APRN Allergies: Triple antibiotic w/hydrocortisone [rnuchtg-uattszml-btcdsxuvg-hc] and Codeine Review of system Review of [...] from the same date. Technique: Routine 3-D hviv-jt-jdjyem gradient echo imaging was obtained of the [...] MD 01/02/2024 3:28 PM EST Workstation ID: [id number] MRI Brain Without Contrast Result Date: 01/02/2024 MRI ANGIOGRAM HEAD WO CONTRAST, MRI BRAIN WO CONTRAST Date of Exam: 01/02/2024 2:00 PM EST Indication: Stroke, follow up. Comparison: Noncontrast head CT and head CTA from the same date. Technique: Routine 3-D euxs-ag-sralzr gradient echo imaging was obtained of the [...] MD 01/02/2024 3:28 PM EST Workstation ID: [id number] CT Angiogram Head Result Date: 01/02/2024 CT [...] MD 01/02/2024 10:02 AM EST Workstation ID: [id number] CT Head Without Contrast Result Date: 01/02/2024 [...] MD 01/02/2024 8:25 AM EST Workstation ID: [id number] EEG Result Date: 01/01/2024 Reason for referral: [...] seen This report is transcribed using the [employer] dictation system. CT Head Without Contrast Result [...] MD 01/01/2024 5:25 PM EST Workstation ID: [id number] FL C Arm During Surgery Result Date: [...] Vee MD - 01/03/2024 11:07 AM EST [facility] VISIT NOTE Chief Complaint: Seizures [...] He is allergic to triple antibiotic w/hydrocortisone [nhkgvfm-giqxbsnn-ikynevtkr-hc] andcodeine. FH: His family history includes Arthritis [...] social history were reviewed and updated in [facility] as appropriate. 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 Otherwise normal CT angiogram of the head as above. Electronically Signed: Ivan Jon MD 01/02/2024 10:02 AM EST Workstation ID: [id number] CT Head Without Contrast Result Date: 01/02/2024 [...] MD 01/02/2024 8:25 AM EST Workstation ID: [id number] EEG Result Date: 01/01/2024 Diffuse cerebral dysfunction of moderate degree, nonspecific No ongoing seizures are seen This report is transcribed using the [employer] dictation system. CT Head Without Contrast Result [...] MD 01/01/2024 5:25 PM EST Workstation ID: [id number] I reviewed the patient's new laboratory and [...] 4 mg, 4 mg, Intravenous, Q6H PRN, aHnk Hitchcock MD pantoprazole (PROTONIX) injection 40 mg, [...] Vee MD - 01/02/2024 3:40 PM EST [facility] VISIT NOTE Chief Complaint: Seizures [...] He is allergic to triple antibiotic w/hydrocortisone [gdvdwni-gpuhwnmi-secjfzscf-hc] andcodeine. FH: His family history includes Arthritis [...] social history were reviewed and updated in [facility] as appropriate. 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 Otherwise normal CT angiogram of the head as above. Electronically Signed: Ivan Jon MD 01/02/2024 10:02 AM EST Workstation ID: [id number] CT Head Without Contrast Result Date: 01/02/2024 [...] MD 01/02/2024 8:25 AM EST Workstation ID: [id number] EEG Result Date: 01/01/2024 Diffuse cerebral dysfunction of moderate degree, nonspecific No ongoing seizures are seen This report is transcribed using the [employer] dictation system. CT Head Without Contrast Result [...] MD 01/01/2024 5:25 PM EST Workstation ID: [id number] I reviewed the patient's new laboratory and [...] 40 mg, Intravenous, Q AM, Valdemar Curran, CLAIMS SUPPORT SPECIALIST, 40 mg at 01/02/24 0534 polyethylene glycol [...] Vee MD - 01/01/2024 3:33 PM EST [facility] VISIT NOTE Chief Complaint: Seizures [...] time on this. Nancie Andrade, MSN, AGACNP-BC, CLAIMS SUPPORT SPECIALIST Electronically signed by Nancie Andrade APRN, 01/01/24, [...] He is allergic to triple antibiotic w/hydrocortisone [wprcczs-fepygtsv-loeafjsib-hc] andcodeine. FH: His family history includes Arthritis [...] social history were reviewed and updated in [facility] as appropriate. Objective O I/O 24 hrs [...] seen This report is transcribed using the [employer] system. CT Head Without Contrast Result Date: 01/01/2024 Impression: Examination limited by patient motion. Findings concerning for subarachnoid hemorrhage along the right parietal lobe. Hypodensity within the right occipital lobe is likely white matter disease however an underlying mass cannot be excluded. Findings were discussed with TRUDI Reid at 5:25p.m. on 01/01/2024 Electronically Signed: Yemi Thomas MD 01/01/2024 5:25 PM EST Workstation ID: [id number] I reviewed the patient's new laboratory and [...] this encounter H&P Notes * Eduardo Buitrago, CLAIMS SUPPORT SPECIALIST - 01/01/2024 10:20 AM EST Pre-Op H&P Santo Terrell [id number] 1945 Chief complaint: Back Pain Subjective: Patient [...] Allergies: Allergies Allergen Reactions Triple Antibiotic W/Hydrocortisone [Dcgatxj-Zqtoxtin-Oesncskjn-Hc] Rash Codeine Other (See Comments) Knots on [...] Neurology Referring provider: Hank Hitchcock MD [address] [place] [address] Reason for Consultation: Seizures Chief complaint: Confused [...] Hank Hitchcock MD; Location: [facility]; Service: Neurosurgery; Laterality: N/A; SHOULDER ARTHROSCOPY Right [...] use: Never and Allergies: Triple antibiotic w/hydrocortisone [raelthv-rqlshvxv-guduyxpum-hc] and Codeine, Vital Signs Blood pressure 114/87, [...] extremities. Babinski sign Motor testing shows equal appeals specialist and equal withdrawal to stimulation. Sensory [...] hours) Procedure Component Value Units Date/Time Magnesium [[id number]] (Abnormal) Collected: 01/02/24730 Specimen: Blood Updated: 01/02/24852 Magnesium 2.5 mg/dL Basic Metabolic Panel [[id number]] (Abnormal) Collected: 01/02/24730 Specimen: Blood Updated: 01/02/24852 [...] function between ages 18 and 70. Phosphorus [[id number]] (Abnormal) Collected: 01/02/24730 Specimen: Blood Updated: 01/02/24852 Phosphorus 4.8 mg/dL CBC & Differential [[id number]] (Abnormal) Collected: 01/02/24730 Specimen: Blood Updated: 01/02/24812 Narrative: The following orders were created for panel order CBC & Differential. Procedure Abnormality Status --------- ------ CBC Auto Differential[[id number]] Abnormal Final result Please view results for these tests on the individual orders. CBC Auto Differential [[id number]] (Abnormal) Collected: 01/02/24730 Specimen: Blood Updated: 01/02/24812 [...] nRBC 0.0 /100 WBC POC Glucose Once [[id number]] (Normal) Collected: 01/02/24 0459 Specimen: Blood Updated: 01/02/24 0501 Glucose 129 mg/dL POC Glucose Once [[id number]] (Abnormal) Collected: 01/02/24 0014 Specimen: Blood Updated: 01/02/24 0016 Glucose 177 mg/dL POC Glucose Once [[id number]] (Abnormal) Collected: 01/01/24 1813 Specimen: Blood Updated: 01/01/24 1815 Glucose 252 mg/dL Basic Metabolic Panel [[id number]] (Abnormal) Collected: 01/01/24 1539 Specimen: Blood from [...] ages 18 and 70. POC Glucose Once [[id number]] (Abnormal) Collected: 01/01/24 1531 Specimen: Blood Updated: 01/01/24 1533 Glucose 167 mg/dL Rads: Imaging Results (Last 72 Hours) Procedure Component Value Units Date/Time CT Angiogram Head [[id number]] Collected: 01/02/24 0936 Updated: 01/02/24 100 Narrative: [...] MD 01/02/2024 10:02 AM EST Workstation ID: [id number] CT Head Without Contrast [[id number]] Collected: 01/02/24816 Updated: 01/02/24827 Narrative: CT HEAD [...] MD 01/02/2024 8:25 AM EST Workstation ID: [id number] CT Head Without Contrast [[id number]] Collected: 01/01/241719 Updated: 01/01/241727 Narrative: CT HEAD [...] MD 01/01/2024 5:25 PM EST Workstation ID: [id number] FL C Arm During Surgery [[id number]] Resulted: 01/01/241450 Updated: 01/01/241450 Narrative: This procedure [...] at bedside, plan is rehab possibly at [facility]. No changes this shift. IS encouraged... Problem: [...] PT -tolerated well, plan is rehab at [facility]. No changes this shift.. Problem: Adult Inpatient [...] this shift. Plan is IP rehab at [facility] per OT recommendations. Problem: Adult Inpatient Plan [...] Surgeon(s): Hank Hitchcock MD Anesthesia: General Staff: Cotton Ball Bagger: Day Urena RN; Andreia Kolb RN Physician Small Products Assembler: Kenna Manley PA-C Manual Lathe Operator: Simba Kidd RT Scrub Person: Aleena Mauricio Budget Engineer: Sunday Adame; Gardenia Casillas Estimated Blood Loss: [...] Pt has been approved to transfer to [facility]. Family will transport. Reportcan be called to [phone]. They have access to [facility] for the dc summary. Pt is in agreement withplan Selected Continued Care - Admitted Since 01/01/2024 Destination Coordination complete. Service Provider Selected Services Address Phone Fax Patient Preferred [address] [address] -- Internal Comment last updated by Stacey Kenney, TRUDI 01/06/2024 4130 01/06: [facility] started insurance precert today. Durable [...] patient. Final Discharge Disposition Code: 03 - alf facility (SNF) * Therapy Treatment Note - Brandon Pimentel, PT - 01/07/2024 11:47 AM EST Patient Name: Santo Terrell : 1945 Today's Date: 01/07/2024 Admit Date: 01/01/2024 Visit Dx: ICD-10-CM ICD-9-CM 1. Spinal stenosis of lumbar region with neurogenic claudication M48.062 724.03 Patient Active Problem List Diagnosis Atrial fibrillation Hypercholesterolemia Coronary artery disease involving [place] heart without angina pectoris Essential hypertension Abnormal [...] Hank Hitchcock MD; Location: [facility]; Service: Neurosurgery; Laterality: N/A; SHOULDER ARTHROSCOPY Right TEETH EXTRACTION General Information Row Name 01/07/24 1415 Physical Therapy Time and Intention Document Type discharge treatment -LA Mode of Treatment physical therapy;individual therapy -LA Row Name 01/07/24 1415 General Information Patient Profile Reviewed yes -SC Existing Precautions/Restrictions fall;seizures -LA Row Name 01/07/24 1415 Cognition Orientation Status (Cognition) oriented x 3 -LA Row Name 01/07/24 1415 Safety Issues, Functional Mobility Impairments Affecting Function (Mobility) balance;strength;pain;endurance/activity tolerance -LA Comment, Safety Issues/Impairments (Mobility) alert, following commands -LA User Oliver (r) = Recorded By, (t) = Taken By, (c) = Cosigned By Initials Name Provider Type LA Brandon Pimentel, PT Physical Therapist Mobility [facility] Name 01/07/24 141 Bed Mobility Comment, (Bed Mobility) uic -[facility] Name 01/07/24 141 Sit-Stand Transfer Sit-Stand [place] (Transfers) verbal cues;standby assist -LA Assistive Device (Sit-Stand Transfers) walker, front-wheeled -[facility] Name 01/07/24 141 Gait/Stairs (Locomotion) [place] Level (Gait) standby assist -LA Assistive Device (Gait) walker, front-wheeled -LA Distance in Feet (Gait) 600 -LA Deviations/Abnormal Patterns (Gait) gait speed decreased;left sided deviations;antalgic;weight shifting decreased -LA Comment, (Gait/Stairs) Gt traiing focused on controling walker with upright posture. Demonstrated good control. nO lOB -LA User Oliver (r) = Recorded By, (t) = Taken By, (c) = Cosigned By Initials Name Provider Type LA Brandon Pimentel PT Physical Therapist Obj/Interventions [facility] Name 01/07/24 141 Balance Dynamic Standing Balance 1-person assist;standby assist -LA Position/Device Used, Standing Balance supported;walker, rolling -LA User Oliver (r) = Recorded By, (t) = Taken By, (c) = Cosigned By Initials Name Provider Type LA Brandon Pimentel, PT Physical Therapist Goals/Plan No documentation. Clinical Impression [facility] 01/07/24 141 Pain Scale: FACES Pre/Post-Treatment Pain: FACES Scale, Pretreatment 2-->hurts little bit -LA Posttreatment Pain Rating 2-->hurts little bit -LA Pain Location - Side/Orientation Left -LA Pain Location - foot -[facility] Name 01/07/24 141 Plan of Care Review Plan of Care Reviewed With patient -LA Progress improving -LA Outcome Evaluation L foot pain improving alowing for increase ambulation. -[facility] Name 01/07/24 141 Therapy Assessment/Plan (PT) Rehab Potential (PT) good, to achieve stated therapy goals -LA Criteria for Skilled Interventions Met (PT) yes;meets criteria;skilled treatment is necessary -LA Therapy Frequency (PT) daily -SC Row Name 01/07/24 1417 Positioning and Restraints Pre-Treatment Position sitting in chair/recliner -LA Post Treatment Position chair -SC In Chair notified nsg;reclined;sitting;call light within reach;encouraged to call for assist -LA User Oliver (r) = Recorded By, (t) = Taken By, (c) = Cosigned By Initials Name Provider Type LA Brandon Pimentel, PT Physical Therapist Outcome Measures Row Name 01/07/24 1418 01/07/24 0816 How much help from another person do you currently need... Turning from your back to your side while in flat bed without using bedrails? 4 -LA 3 -LB Moving from lying on back to sitting on the side of a flat bed without bedrails? 4 -SC 3 -LB Moving to and from a bed to a chair (including a wheelchair)? 4 -SC 3 -LB Standing up from a chair using your arms (e.g., wheelchair, bedside chair)? 3 - LA 3 -LB Climbing 3-5 steps with a railing? 3 -LA 3 -LB To walk in hospital room? 3 -LA 3 -LB AM-PAC 6 Clicks Score (PT) 21 -LA 18 -LB Highest Level of Mobility Goal 6 --> Walk 10 steps or more -LA 6 --> Walk 10 steps or more -LB Row Name 01/07/24 1418 Functional Assessment Outcome Measure Options AM-PAC 6 Clicks Basic Mobility (PT) -LA User Oliver (r) = Recorded By, (t) = Taken By, (c) = Cosigned By Initials Name Provider Type LA Brandon Pimentel, PT Physical Therapist Lorna St RN Registered Nurse Physical Therapy Education Title: PT OT SUPERVISOR LANDSCAPE Therapies (In Progress) Topic: Physical Therapy (Done) [...] Progress Summary Patient Eager, E, VU by LA at 01/07/2024 1418 Comment: reviewed benefits of [...] Progress Summary Patient Eager, E, VU by LA at 01/07/2024 1418 Comment: reviewed benefits of [...] Progress Summary Patient Eager, E, VU by LA at 01/07/2024 1418 Comment: reviewed benefits of [...] Initials Effective Dates Name Provider Type Discipline LA 12/14/22 - Brandon Pimentel, PT Physical Therapist [...] 01/07/24 1147 Time Calculation Start Time 1147 -LA PT Received On 01/07/24 -LA PT Goal Re-Cert Due Date 01/13/24 -LA Timed Charges 34314 - Gait Training Minutes 20 -SC Total Minutes Timed Charges Total Minutes 20 -SC Total Minutes 20 -SC User Oliver (r) = Recorded By, (t) = Taken By, (c) = Cosigned By Initials Name Provider Type SC Brandon Pimentel PT Physical Therapist Therapy Charges for Today Code Description Service Date Service Provider Modifiers Qty [id number] HC GAIT TRAINING EA 15 MIN 01/07/2024 [...] Atrial fibrillation Hypercholesterolemia Coronary artery disease involving [place] heart without angina pectoris Essential hypertension Abnormal [...] Hank Hitchcock MD; Location: [facility]; Service: Neurosurgery; Laterality: N/A; SHOULDER ARTHROSCOPY Right [...] Affecting Function (Mobility) balance;strength;pain;endurance/activity tolerance -KR User Olivre (r) = Recorded By, (t) = Taken By, (c) = Cosigned By Initials Name Provider Type Ember Verde PT Physical Therapist Mobility Row Name 01/06/24 153 Sit-Stand Transfer Sit-Stand [place] (Transfers) verbal cues;standby assist -KR Assistive Device (Sit-Stand Transfers) walker, front-wheeled -KR Comment, (Sit-Stand Transfer) 2x from chair, 1x from toilet, + addt'l 5x STS from chair. -KR Row Name 01/06/24 153 Gait/Stairs (Locomotion) [place] Level (Gait) standby assist -KR Assistive Device [...] Therapist Physical Therapy Education Title: PT OT SUPERVISOR LANDSCAPE Therapies (In Progress) Topic: Physical Therapy (Done) [...] Initials Effective Dates Name Provider Type Discipline LA 12/14/22 - Brandon Pimentel, PT Physical Therapist PT 12/17/23 - Dannielle Orellana, PT Physical Therapist PT 11/09/22 - Ember Johnson, PT Physical Therapist [facility] 09/26/23 - Catalina Guadarrama, PT Physical Therapist [...] PT Received On 01/06/24 -KR Timed Charges 72644 - PT Therapeutic Exercise Minutes 5 -KR 38426 - PT Therapeutic Activity Minutes 18 -KR Total Minutes Timed Charges Total Minutes 23 -KR Total Minutes 23 -KR User Oliver (r) = Recorded By, (t) = Taken By, (c) = Cosigned By Initials Name Provider Type Ember Verde, PT Physical Therapist Therapy Charges for Today Code Description Service Date Service Provider Modifiers Qty 14302126984 PT THER PROC EA 15 MIN 01/06/2024 Ember Johnson, PT GP 1 [id number] PT THERAPEUTIC ACT EA 15 MIN 01/06/2024 Ember Johnson PT GP 1 PT G-Codes Outcome Measure Options: AM-PAC 6 Clicks Basic Mobility (PT) AM-PAC 6 Clicks Score (PT): 18 AM-PAC 6 Clicks Score (OT): 15 Ember Johnson PT 01/06/2024 * Case Management/Social Work - Stacey Kenney RN - 01/06/2024 11:52 AM EST Continued Stay Note [facility] Patient Name: Santo Terrell Today's Date: 01/06/2024 Admit Date: 01/01/2024 Plan: Skilled Rehab Discharge Plan Row Name 01/06/24 1150 Plan Plan Skilled Rehab Patient/Family in Agreement with Plan yes Plan Comments Burner Operator spoke with pt and his daughter, at the bedside. PT/OT recommended skilled rehab. Pt would really like to be somewhere in [place]. They would like referrals to [facility] [place], and [place]. Burner Operator spoke with Ina/Vonnie, she is unsure that they are in network. She requested fax all information today. CM let [facility] know pt is medically ready . Information faxed, confirmed fax number in [facility]. [facility] spoke with Sagr[facility], on the phone. She will review in [facility]. CM did not make referral to [place] [facility], as of today, since pt prefers [place]. Burner Operator will continue to follow. 1345-Sagrario/[facility] called [facility] and stated she has a private bed available for pt. BRENDON spoke with pt's daughter, on the phone, pt and daughter are agreeable. Sagrario will start insurance precert today. Final Discharge Disposition Code 03 - alf facility (SNF) Discharge Codes No documentation. Expected [...] Atrial fibrillation Hypercholesterolemia Coronary artery disease involving [place] heart without angina pectoris Essential hypertension Abnormal [...] Hank Hitchcock MD; Location: [facility]; Service: Neurosurgery; Laterality: N/A; SHOULDER ARTHROSCOPY Right TEETH EXTRACTION General Information Row Name 01/05/24 1122 Physical Therapy Time and Intention Document Type therapy note (daily note) -LA Mode of Treatment physical therapy;individual therapy -LA Row Name 01/05/24 1122 General Information Patient Profile Reviewed yes -LA Existing Precautions/Restrictions fall;seizures -LA Row Name 01/05/24 112 Cognition Orientation Status (Cognition) oriented x 3 -LA Row Name 01/05/24 112 Safety Issues, Functional Mobility Impairments Affecting Function (Mobility) balance;strength;pain;postural/trunk control;endurance/activity tolerance -LA Comment, Safety Issues/Impairments (Mobility) alert, following commands -LA User Oliver (r) = Recorded By, (t) = Taken By, (c) = Cosigned By Initials Name Provider Type LA Brandon Pimentel PT Physical Therapist Mobility Row Name 01/05/241122 Bed Mobility Comment, (Bed Mobility) [facility] Row Name 01/05/241122 Transfers Comment, (Transfers) cues for hand placement. Able to get to standing without assistance -LA Row Name 01/05/241122 Sit-Stand Transfer Sit-Stand [place] (Transfers) verbal cues;standby assist -LA Assistive Device (Sit-Stand Transfers) walker, front-wheeled -LA Row Name 01/05/241122 Gait/Stairs (Locomotion) [place] Level (Gait) 1 person assist;contact guard;verbal cues -LA Assistive Device (Gait) walker, front-wheeled -LA Deviations/Abnormal Patterns (Gait) gait speed decreased;left sided deviations;antalgic;weight shifting decreased -LA Bilateral Gait Deviations forward flexed posture -LA Left Sided Gait Deviations weight shift ability decreased;heel strike decreased -LA Comment, (Gait/Stairs) Gt training focused on controling walker in hallway. Encouraged upright posture frequently. c/o L foot pain throught session limiting distance. Rn aware -LA User Oliver (r) = Recorded By, (t) = Taken By, (c) = Cosigned By Initials Name Provider Type LA Brandon Pimentel PT Physical Therapist Obj/Interventions [facility] Name 01/05/241124 Motor Skills Therapeutic Exercise hip;knee;ankle -[facility] 01/05/24 [facility] Hip (Therapeutic Exercise) Hip (Therapeutic Exercise) AROM (active range of motion) -LA Hip Isometrics (Therapeutic Exercise) bilateral;flexion;extension;aBduction;aDduction;10 repetitions -[facility] Name 01/05/241124 Ankle (Therapeutic Exercise) Ankle (Therapeutic Exercise) AROM (active range of motion) -LA Ankle AROM (Therapeutic Exercise) bilateral;dorsiflexion;plantarflexion;10 repetitions -[facility] Name 01/05/24 [facility] Balance Balance Assessment standing dynamic balance -LA Dynamic Standing Balance 1-person assist;contact guard;verbal cues -LA Position/Device Used, Standing Balance supported;walker, rolling -LA Comment, Balance unsteady -LA User Oliver (r) = Recorded By, (t) = Taken By, (c) = Cosigned By Initials Name Provider Type LA Brandon Pimentel, PT Physical Therapist Goals/Plan No documentation. Clinical Impression Row Name 01/05/24 1125 Pain Pretreatment Pain Rating 7/10 -LA Posttreatment Pain Rating 9/10 -LA Pain Location - Side/Orientation Left -LA Pain Location - foot -LA Pre/Posttreatment Pain Comment anterior 1st ray and tarsal jt -LA Pain Intervention(s) Cold applied -LA Row Name 01/05/24 1125 Plan of Care Review Plan of Care Reviewed With patient -LA Progress improving -LA Outcome Evaluation Patient's gait continues to be limited by c/o L foot pain. He was still able to participate in some ambulation activities in hallway -LA Row Name 01/05/24 1125 Therapy Assessment/Plan (PT) Rehab Potential (PT) good, to achieve stated therapy goals -LA Criteria for Skilled Interventions Met (PT) yes;meets criteria;skilled treatment is necessary -LA Therapy Frequency (PT) daily -LA Row Name 01/05/24 1125 Positioning and Restraints Pre-Treatment Position sitting in chair/recliner -LA Post Treatment Position chair -LA In Chair notified nsg;reclined;sitting;call light within reach;encouraged to call for assist;with family/caregiver;exit alarm on -LA User Oliver (r) = Recorded By, (t) = Taken By, (c) = Cosigned By Initials Name Provider Type LA Brandon Pimentel, PT Physical Therapist Outcome Measures Row Name 01/05/24 1129 01/05/24 0855 How much help from another person do you currently need... Turning from your back to your side while in flat bed without using bedrails? 3 -LA 3 -AP Moving from lying on back to sitting on the side of a flat bed without bedrails? 3 -LA 3 -AP Moving to and from a bed to a chair (including a wheelchair)? 3 -LA 3 -AP Standing up from a chair using your arms (e.g., wheelchair, bedside chair)? 3 - LA 3 -AP Climbing 3-5 steps with a railing? 3 -LA 2 -AP To walk in hospital room? 3 -LA 3 -AP AM-PAC 6 Clicks Score (PT) 18 -LA 17 -AP Highest Level of Mobility Goal 6 --> Walk 10 steps or more -LA 5 --> Static standing - Row Name 01/05/24 112 Functional Assessment Outcome Measure Options AM-PAC 6 Clicks Basic Mobility (PT) -LA User Oliver (r) = Recorded By, (t) = Taken By, (c) = Cosigned By Initials Name Provider Type LA Brandon Pimentel, PT Physical Therapist Radha Yip, RN Registered Nurse Physical Therapy Education Title: PT OT SUPERVISOR LANDSCAPE Therapies (In Progress) Topic: Physical Therapy (Done) Point: Mobility training (Done) Learning Progress Summary Patient Eager, E, VU by LA at 01/05/2024 112 Comment: reviewed HEp Acceptance, E, VU by at 01/04/2024 1118 Acceptance, E, VU by ND at 01/03/2024 0942 Family Acceptance, E, VU by at 01/04/2024 111 Point: Home exercise program (Done) Learning Progress Summary Patient Eager, E, VU by LA at 01/05/2024 112 Comment: reviewed HEp Acceptance, E, VU by at 01/04/2024 1118 Family Acceptance, E, VU by CK at 01/04/2024 111 Point: Body mechanics (Done) Learning Progress Summary Patient Eager, E, VU by LA at 01/05/2024 112 Comment: reviewed HEp Acceptance, E, VU by at 01/04/2024 1118 Acceptance, E, VU by ND at 01/03/2024 0942 Family Acceptance, E, VU by CK at 01/04/2024 1118 Point: Precautions (Done) Learning Progress Summary Patient Eager, E, VU by LA at 01/05/2024 112 Comment: reviewed HEp Acceptance, E, VU by at 01/04/2024 1118 Acceptance, E, VU by ND at 01/03/2024 0942 Family Acceptance, E, VU by at 01/04/2024 1118 User Oliver Initials Effective Dates Name Provider Type Discipline LA 12/14/22 - Brandon Pimentel, PT Physical Therapist [...] 01/05/24 1029 Time Calculation Start Time 1029 -LA PT Received On 01/05/24 -LA PT Goal Re-Cert Due Date 01/13/24 -LA Timed Charges 74641 - PT Therapeutic Exercise Minutes 5 -SC 65717 - Gait Training Minutes 15 -SC Total Minutes Timed Charges Total Minutes 20 -SC Total Minutes 20 -SC User Oliver (r) = Recorded By, (t) = Taken By, (c) = Cosigned By Initials Name Provider Type SC Brandon Pimentel, PT Physical Therapist Therapy Charges for Today Code Description Service Date Service Provider Modifiers Qty 35848020439 HC GAIT TRAINING EA 15 MIN 01/05/2024 [...] Atrial fibrillation Hypercholesterolemia Coronary artery disease involving [place] heart without angina pectoris Essential hypertension Abnormal [...] Hank Hitchcock MD; Location: [facility]; Service: Neurosurgery; Laterality: N/A; SHOULDER ARTHROSCOPY Right [...] Bed Mobility Bed Mobility supine-sit -CK Supine-Sit [place] (Bed Mobility) minimum assist (75% patient effort);1 person assist;verbal cues -CK Assistive Device (Bed Mobility) bed rails -CK Comment, (Bed Mobility) cues provided for logroll technique, patient demo'd good sequencing with this, Seth to lift trunk from HOB -CK Row Name 01/04/24 110 Sit-Stand Transfer Sit-Stand [place] (Transfers) contact guard;1 person assist;verbal cues -CK Assistive Device (Sit-Stand Transfers) walker, front-wheeled -CK Comment, (Sit-Stand Transfer) cues to push up from bed/grab bar in bathroom -CK Row Name 01/04/24 1109 Gait/Stairs (Locomotion) [place] Level (Gait) moderate assist (50% patient effort);1 [...] Radha Rogers, RN Registered Nurse Sabrina Bhatt, Powdered Sugar Pulverizer Operator Powdered Sugar Pulverizer Operator Dannielle Burnette, PT Physical Therapist Physical Therapy Education Title: PT OT SUPERVISOR LANDSCAPE Therapies (In Progress) Topic: Physical Therapy (Done) [...] Re-Cert Due Date 01/13/24 -CK Timed Charges 43269 - PT Therapeutic Exercise Minutes 10 -CK 60584 - Gait Training Minutes 11 -CK 29891 - PT Therapeutic Activity Minutes 5 -CK Total Minutes Timed Charges Total Minutes 26 -CK Total Minutes 26 -CK User Oliver (r) = Recorded By, (t) = Taken By, (c) = Cosigned By Initials Name Provider Type CK Dannielle Orellana, PT Physical Therapist Therapy Charges for Today Code Description Service Date Service Provider Modifiers Qty 27768961193 HC PT THER PROC EA 15 MIN 01/04/2024 Dannielle Orellana, PT GP 1 09588179337 HC GAIT TRAINING EA 15 MIN 01/04/2024 [...] Atrial fibrillation Hypercholesterolemia Coronary artery disease involving [place] heart without angina pectoris Essential hypertension Abnormal [...] Hank Hitchcock MD; Location: [facility]; Service: Neurosurgery; Laterality: N/A; SHOULDER ARTHROSCOPY Right [...] Mobility rolling left;rolling right - Rolling Left [place] (Bed Mobility) minimum assist (75% patient effort);verbal cues -CS Rolling Right [place] (Bed Mobility) minimum assist (75% patient effort);verbal cues -CS Assistive Device (Bed Mobility) bed rails;draw sheet - Row Name 01/03/241446 Transfers Transfers bed-chair transfer;sit-stand transfer;stand-sit transfer - Row Name 01/03/24 144 Bed-Chair Transfer Bed-Chair [place] (Transfers) dependent (less than 25% patient effort);2 person assist;verbal cues - Assistive Device (Bed-Chair Transfers) lift device - Row Name 01/03/241446 Sit-Stand Transfer Sit-Stand [place] (Transfers) minimum assist (75% patient effort);2 person assist;verbal cues - Assistive Device (Sit-Stand Transfers) walker, front-wheeled - Row Name 01/03/241446 Stand-Sit Transfer Stand-Sit [place] (Transfers) minimum assist (75% patient effort);2 person [...] Row Name 01/03/241446 Lower Body Dressing Assessment/Training [place] Level (Lower Body Dressing) don;socks;dependent (less than 25% patient effort) - Position (Lower Body Dressing) supine - Row Name 01/03/241446 Self-Feeding Assessment/Training [place] Level (Feeding) liquids to mouth;set up;finger foods - Position (Self-Feeding) supported sitting - User Oliver (r) = Recorded By, (t) = Taken By, (c) = Cosigned By Initials Name Provider Type Rocio Wilson OT Occupational Therapist Obj/Interventions [facility] Name 01/03/24 1448 Sensory Assessment (Somatosensory) Sensory Assessment (Somatosensory) UE sensation intact -[facility] Name 01/03/24 1448 Range of Motion Comprehensive General Range of Motion bilateral upper extremity ROM WFL -[facility] Name 01/03/24 1448 Strength Comprehensive (MMT) Comment, General Manual Muscle Testing (MMT) Assessment Deferred -[facility] Name 01/03/24 1448 Balance Balance Assessment sitting [...] Type Rocio Wilson OT Occupational Therapist Goals/Plan [facility] Name 01/03/24 144 Transfer Goal 1 (OT) Activity/Assistive Device (Transfer Goal 1, OT) [id number]-jh-gcvfz/jrhei-mw-atw;toilet -CS [place] Level/Cues Needed (Transfer Goal 1, OT) minimum assist (75% or more patient effort) -CS Time Frame (Transfer Goal 1, OT) half-way goal (LTG);10 days -CS Progress/Outcome (Transfer Goal 1, OT) goal ongoing -[facility] Name 01/03/241448 Dressing Goal 1 (OT) Activity/Device (Dressing Goal 1, OT) lower body dressing -CS [place]/Cues Needed (Dressing Goal 1, OT) minimum assist (75% or more patient effort) -CS Time Frame (Dressing Goal 1, OT) terminal supervisor goal (LTG);10 days -CS Strategies/Barriers (Dressing Goal 1, OT) don/doff socks w/ AAD -CS Progress/Outcome (Dressing Goal 1, OT) goal ongoing -[facility] Name 01/03/241448 Toileting Goal 1 (OT) Activity/Device (Toileting Goal 1, OT) adjust/manage clothing;perform perineal hygiene -CS [place] Level/Cues Needed (Toileting Goal 1, OT) moderate assist (50-74% patient effort) -CS Time Frame (Toileting Goal 1, OT) half-way goal (LTG);10 days -CS Progress/Outcome (Toileting Goal [...] Therapist Occupational Therapy Education Title: PT OT SUPERVISOR LANDSCAPE Therapies (In Progress) Topic: Occupational Therapy (In [...] Re-Cert Due Date 01/13/24 -CS Timed Charges 82568 - OT Therapeutic Activity Minutes 18 -CS 13041 - OT Self Care/Mgmt Minutes 5 -CS [...] Description Service Date Service Provider Modifiers Qty 19949692652 HC OT THERAPEUTIC ACT EA 15 MIN 01/03/2024 Rocio Wilson OT GO 1 51475488413 HC OT SELF CARE/MGMT/TRAIN EA 15 MIN 01/03/2024 Rocio Wilson OT GO 1 38526712178 HC OT EVAL MOD COMPLEXITY 3 01/03/2024 Rocio Wilson OT GO 1 86353204520 HC OT THER SUPP EA 15 MIN 01/03/2024 Rocio Wilson OT GO 2 Rocio Wilson OT 01/03/2024 * Case Management/Social Work - Didi Lawrence RN - 01/03/2024 11:46 AM EST Images from the original note were not included. Discharge Planning Assessment [facility] Patient Name: Santo Terrell Today's Date: [...] rehabilitation facility Patient/Family Anticipated Services at Transition manager of case managementgeotechnical department manager Anticipated family or friend will provide Discharge Needs Assessment Equipment Currently Used at Home none Concerns to be Addressed discharge planning Discharge Plan Row Name 01/03/24 1137 Plan Plan Rehab Patient/Family in Agreement with Plan yes Plan Comments Spoke with patient and his daughter, Cathy, at bedside to initiate discharge planning. Confirmed patient's residence in [place] [facility]; PCP is Robinson Manley; insurance is [employer]. Patient is reported to be independent with ADLs and mobility prior to this admission; no DMEor HH. Patient's pharmacy is [facility] in [place]. Discussed therapy recommendations with Cathy; she willfurther [...] Reason for Consult discharge planning Preferred Language Venezuelan Contact Information Permission Granted to Share Info With manager of case managementecommerce manager Status Row Name 01/03/24 1135 Functional [...] Atrial fibrillation Hypercholesterolemia Coronary artery disease involving [place] heart without angina pectoris Essential hypertension Abnormal [...] Hank Hitchcock MD; Location: [facility]; Service: Neurosurgery; Laterality: N/A; SHOULDER ARTHROSCOPY Right [...] Mobility supine-sit;sit-supine;rolling left;rolling right -ND Rolling Left [place] (Bed Mobility) moderate assist (50% patient effort) -ND Rolling Right [place] (Bed Mobility) moderate assist (50% patient effort) -ND Supine-Sit [place] (Bed Mobility) moderate assist (50% patient effort) -ND Sit-Supine [place] (Bed Mobility) moderate assist (50% patient effort) [...] Row Name 01/03/24 09 Bed-Chair Transfer Bed-Chair [place] (Transfers) dependent (less than 25% patient effort);2 person assist;verbal cues -ND Assistive Device (Bed-Chair Transfers) lift device -ND Comment, (Bed-Chair Transfer) Pt with decreased tolerance to being upright. Lifted to chair where pt reporting 10/10 pain and RN administered pain medication. Pt with increased fatigue following painmedication and lifted back to bed per RN request. -ND Row Name 01/03/24 09 Sit-Stand Transfer Sit-Stand [place] (Transfers) unable to assess -ND Row Name 01/03/24 0925 Gait/Stairs (Locomotion) [place] Level (Gait) unable to assess -ND Comment, [...] PT) sit to supine/supine to sit -ND [place] Level/Cues Needed (Bed Mobility Goal 1, PT) independent -ND Time Frame (Bed Mobility Goal 1, PT) terminal supervisor goal (LTG);10 days -ND Row Name 01/03/24937 Transfer Goal 1 (PT) Activity/Assistive Device (Transfer Goal 1, PT) mca-lb-rduiq/qlzow-si-tnz;pdc-ds-akxna/hvgdu-cm-mlv-ND [place] Level/Cues Needed (Transfer Goal 1, PT) independent -ND Time Frame (Transfer Goal 1, PT) terminal supervisor goal (LTG);10 days -ND Row Name 01/03/24937 Gait Training Goal 1 (PT) Activity/Assistive Device (Gait Training Goal 1, PT) gait (walking locomotion);increase endurance/gait distance;decrease fall risk -ND [place] Level (Gait Training Goal 1, PT) independent -ND Distance (Gait Training Goal 1, PT) 500 -ND Time Frame (Gait Training Goal 1, PT) terminal supervisor goal (LTG);10 days -ND Row Name 01/03/24937 [...] Therapist Physical Therapy Education Title: PT OT SUPERVISOR LANDSCAPE Therapies (In Progress) Topic: Physical Therapy (In [...] Description Service Date Service Provider Modifiers Qty [id number] HC PT EVAL MOD COMPLEXITY 4 01/03/2024 Catalina Guadarrama, PT GP 1 PT G-Codes Outcome Measure Options: AM-PAC 6 Clicks Basic Mobility (PT) AM-PAC 6 Clicks Score (PT): 11 PT Discharge Summary Anticipated Discharge Disposition (PT): inpatient rehabilitation facility Catalina Guadarrama PT 01/03/2024 * Case Management/Social Work - Isis Cancino RN - 01/02/2024 3:33 PM EST Continued Stay Note [facility] Patient Name: Santo Terrell Today's Date: [...] Per Chart review, Mr. Terrell lives in [facility]. He is now being followed by [...] [facility] [address] [phone] Hannah Martinez APRN [address] [id number] 02/04/2025 9:00 AM EDT Office Visit [facility] [address] [facility] [address] [place] [address] Britany Braxton MD [address] [facility] [address] [place] [address] documented as of this encounter [...] DURING SURGERY Routine 01/01/2024 2:50 PM EST [facility] FACETECTOMY [facility] FORAMOTOMY 1 VRT SGM LUMBAR 01/01/2024 1:16 PM EST Spinal stenosis of lumbar region, unspecified whether neurogenic claudication present Special Needs FILMS ON PAX, C-ARM + SCANNED - TELEMETRY 01/01/2024 SCANNED - TELEMETRY 01/01/2024 documented in this encounter Results * Magnesium (01/07/2024 5:41 AM EST) Pathologist [facility] [facility] Magnesium 1.8 1.6 - 2.4 mg/dL 01/07/2024 6:53 AM EST [facility] Blood Venipuncture / Unknown 01/07/2024 5:41 AM EST 01/07/2024 6:11 AM EST us Brown Rodriguez MD LAB BLOOD ORDERABLES Final Res ult [facility]
[address] [place] [address], * (ABNORMAL) Basic Metabolic Panel (01/07/2024 5:41 AM EST) Pathologist [facility] Glucose 169(H) 65 - 99 mg/dL 01/07/2024 6:53 AM EST [facility] BUN 20 8 - 23 mg/dL 01/07/2024 6:53 AM [facility] Creatinine 1.10 0.76 - 1.27 mg/dL 01/07/2024 6:53 AM [facility] Sodium 135(L) 136 - 145 mmol/L 01/07/2024 6:53 AM [facility] Potassium 4.2 3.5 - 5.2 mmol/L 01/07/2024 6:53 AM [facility] Chloride 101 98 - 107 mmol/L 01/07/2024 6:53 AM [facility] CO2 25.0 22.0 - 29.0 mmol/L 01/07/2024 6:53 AM [facility] Calcium 9.2 8.6 - 10.5 mg/dL 01/07/2024 6:53 AM [facility] BUN/Creatinine Ratio 18.2 7.0 - 25.0 01/07/2024 6:53 AM [facility] Anion Gap 9.0 5.0 - 15.0 mmol/L 01/07/2024 6:53 AM EST [facility] eGFR 69.1 >60.0 mL/min/1.7 3 01/07/2024 6:53 AM EST [facility] Blood Venipuncture / Unknown 01/07/2024 5:41 AM EST 01/07/2024 6:11 AM EST Narrative [facility] - 01/07/2024 6:53 AM EST GFR Normal >60 Chronic Kidney Disease <60 Kidney Failure <15 The GFR formula is only valid for adults with stable renal function between ages 18 and 70. Brown Rodriguez MD LAB BLOOD ORDERABLES Final Res ult Performing Organization Address City/[facility] Co de Phone Number [facility]
[address] [place] [address], * Potassium (01/06/2024 6:00 PM EST) Potassium 4.8 3.5 - 5.2 mmol/L 01/06/2024 6:47 PM EST [facility] Comment:Slight hemolysis det ected by analyzer. Result may be falsely elevated. Blood Venipuncture / Unknown 01/06/2024 6:00 PM EST 01/06/2024 6:33 PM EST Brown Rodriguez MD LAB BLOOD ORDERABLES Final Res ult [facility]
[address] [place] [address], [place] [phone] * Magnesium (01/06/2024 5:07 AM EST) Magnesium 1.7 1.6 - 2.4 mg/dL 01/06/2024 6:18 AM EST [facility] Blood Venipuncture / Unknown 01/06/2024 5:07 AM EST 01/06/2024 5:38 AM EST us Brown Rodriguez MD LAB BLOOD ORDERABLES Final Res ult [facility]
[address] [place] [address], * (ABNORMAL) Basic Metabolic Panel (01/06/2024 5:07 AM EST) Glucose 189(H) 65 - 99 mg/dL 01/06/2024 6:18 AM EST [facility] BUN 21 8 - 23 mg/dL 01/06/2024 6:18 AM EST [facility] Creatinine 1.11 0.76 - 1.27 mg/dL 01/06/2024 6:18 AM EST [facility] Sodium 135(L) 136 - 145 mmol/L 01/06/2024 6:18 AM EST [facility] Potassium 3.4(L) 3.5 - 5.2 mmol/L 01/06/2024 6:18 AM EST [facility] Chloride 100 98 - 107 mmol/L 01/06/2024 6:18 AM EST [facility] CO2 24.0 22.0 - 29.0 mmol/L 01/06/2024 6:18 AM EST [facility] Calcium 8.4(L) 8.6 - 10.5 mg/dL 01/06/2024 6:18 AM EST [facility] BUN/Creatinine Ratio 18.9 7.0 - 25.0 01/06/2024 6:18 AM EST [facility] Anion Gap 11.0 5.0 - 15.0 mmol/L 01/06/2024 6:18 AM EST [facility] eGFR 68.4 >60.0 mL/min/1.7 3 01/06/2024 6:18 AM EST [facility] Blood Venipuncture / Unknown 01/06/2024 5:07 AM EST 01/06/2024 5:38 AM EST Narrative [facility] - 01/06/2024 6:18 AM EST GFR Normal >60 Chronic Kidney Disease <60 Kidney Failure <15 The GFR formula is only valid for adults with stable renal function between ages 18 and 70. us Brown Rodriguez MD LAB BLOOD ORDERABLES Final Res ult Performing Organization Address [facility] Co de Phone Number [facility]
[address] [place] [address], * Magnesium (01/05/2024 5:15 AM EST) Magnesium 1.7 1.6 - 2.4 mg/dL 01/05/2024 6:47 AM EST [facility] Blood Venipuncture / Unknown 01/05/2024 5:15 AM EST 01/05/2024 6:04 AM EST us Brown Rodriguez MD LAB BLOOD ORDERABLES Final Res ult Performing Organization Address [facility] de Phone Number [facility]
[address] [place] [address], * (ABNORMAL) Basic Metabolic Panel (01/05/2024 5:15 AM EST) Glucose 139(H) 65 - 99 mg/dL 01/05/2024 6:47 AM EST [facility] BUN 20 8 - 23 mg/dL 01/05/2024 6:47 AM EST [facility] Creatinine 1.10 0.76 - 1.27 mg/dL 01/05/2024 6:47 AM EST [facility] Sodium 137 136 - 145 mmol/L 01/05/2024 6:47 AM EST [facility] Potassium 3.4(L) 3.5 - 5.2 mmol/L 01/05/2024 6:47 AM EST [facility] Chloride 103 98 - 107 mmol/L 01/05/2024 6:47 AM EST [facility] CO2 24.0 22.0 - 29.0 mmol/L 01/05/2024 6:47 AM EST [facility] Calcium 8.1(L) 8.6 - 10.5 mg/dL 01/05/2024 6:47 AM EST [facility] BUN/Creatinine Ratio 18.2 7.0 - 25.0 01/05/2024 6:47 AM EST [facility] Anion Gap 10.0 5.0 - 15.0 mmol/L 01/05/2024 6:47 AM EST [facility] eGFR 69.1 >60.0 mL/min/1.7 3 01/05/2024 6:47 AM EST [facility] Blood Venipuncture / Unknown 01/05/2024 5:15 AM EST 01/05/2024 6:04 AM EST Narrative [facility] - 01/05/2024 6:47 AM EST GFR Normal >60 Chronic Kidney Disease <60 Kidney Failure <15 The GFR formula is only valid for adults with stable renal function between ages 18 and 70. Bronw Rodriguez MD LAB BLOOD ORDERABLES Final Res ult [facility]
[address] [place] [address], * POC Glucose Once (01/04/2024 5:31 PM EST) Glucose 94 70 - 130 mg/dL 01/04/2024 5:34 PM EST [facility] Blood 01/04/2024 5:31 PM EST 01/04/2024 5:34 PM EST Hank Hitchcock MD POINT OF CARE TEST ORDERABLE S Final Result [facility]
[address] [place] [address], * (ABNORMAL) POC Glucose Once (01/04/2024 11:21 AM EST) Glucose 188(H) 70 - 130 mg/dL 01/04/2024 11:22 AM EST [facility] Blood 01/04/2024 11:2 1 AM EST 01/04/2024 11:22 AM EST us Hank Hitchcock MD POINT OF CARE TEST ORDERABLE S Final Result [facility]
[address] [place] [address], * (ABNORMAL) Basic Metabolic Panel (01/04/2024 4:04 AM EST) Glucose 135(H) 65 - 99 mg/dL 01/04/2024 5:57 AM EST [facility] BUN 21 8 - 23 mg/dL 01/04/2024 5:57 AM [facility] Creatinine 0.96 0.76 - 1.27 mg/dL 01/04/2024 5:57 AM [facility] Sodium 138 136 - 145 mmol/L 01/04/2024 5:57 AM [facility] Potassium 3.6 3.5 - 5.2 mmol/L 01/04/2024 5:57 AM [facility] Comment:Slight hemolysis det ected by analyzer. Result may be falsely elevated. Chloride 106 98 - 107 mmol/L 01/04/2024 5:57 AM EST [facility] CO2 22.0 22.0 - 29.0 mmol/L 01/04/2024 5:57 AM [facility] Calcium 8.3(L) 8.6 - 10.5 mg/dL 01/04/2024 5:57 AM [facility] BUN/Creatinine Ratio 21.9 7.0 - 25.0 01/04/2024 5:57 AM [facility] Anion Gap 10.0 5.0 - 15.0 mmol/L 01/04/2024 5:57 AM [facility] eGFR 81.4 >60.0 mL/min/1.7 3 01/04/2024 5:57 AM EST [facility] Blood Venipuncture / Unknown 01/04/2024 4:04 AM EST 01/04/2024 5:18 AM EST [facility] - 01/04/2024 5:57 AM EST GFR Normal >60 Chronic Kidney Disease <60 Kidney Failure <15 The GFR formula is only valid for adults with stable renal function between ages 18 and 70. us Tyrone Vee MD LAB BLOOD ORDERABLES Final Resu lt [facility]
[address] [place] [address], * CBC (No Diff) (01/04/2024 4:04 AM EST) WBC 9.20 3.40 - 10.80 10*3/mm3 01/04/2024 5:25 AM [facility] RBC 4.93 4.14 - 5.80 10*6/mm3 01/04/2024 5:25 AM [facility] Hemoglobin 14.3 13.0 - 17.7 g/dL 01/04/2024 5:25 AM [facility] Hematocrit 43.7 37.5 - 51.0 % 01/04/2024 5:25 AM [facility] MCV 88.6 79.0 - 97.0 fL 01/04/2024 5:25 AM [facility] MCH 29.0 26.6 - 33.0 pg 01/04/2024 5:25 AM [facility] MCHC 32.7 31.5 - 35.7 g/dL 01/04/2024 5:25 AM [facility] RDW 15.4 12.3 - 15.4 % 01/04/2024 5:25 AM [facility] RDW-SD 49.9 37.0 - 54.0 fl 01/04/2024 5:25 AM EST [facility] MPV 11.0 6.0 - 12.0 fL 01/04/2024 5:25 AM EST [facility] Platelets 152 140 - 450 10*3/mm3 01/04/2024 5:25 AM EST [facility] Blood Venipuncture / Unknown 01/04/2024 4:04 AM EST 01/04/2024 5:18 AM EST us Tyrone Vee MD LAB BLOOD ORDERABLES Final Resu lt [facility]
[address] [place] [address], [place] [phone] * Magnesium (01/04/2024 4:04 AM EST) Magnesium 1.9 1.6 - 2.4 mg/dL 01/04/2024 5:57 AM EST [facility] Blood Venipuncture / Unknown 01/04/2024 4:04 AM EST 01/04/2024 5:18 AM EST us Tyrone Vee MD LAB BLOOD ORDERABLES Final Resu lt Performing Organization Address City/[facility]/ZIP Co de Phone Number [facility]
[address] [place] [address], [place] [phone] * POC Glucose Once (01/03/2024 5:46 PM EST) Glucose 116 70 - 130 mg/dL 01/03/2024 5:47 PM EST [facility] Blood 01/03/2024 5:46 PM EST 01/03/2024 5:47 PM EST us Hank Hitchcock MD POINT OF CARE TEST ORDERABLE S Final Result Performing Organization Address City/[facility]/ZIP Co de Phone Number [facility]
[address] [place] [address], * POC Glucose Once (01/03/2024 11:32 AM EST) Glucose 104 70 - 130 mg/dL 01/03/2024 5:21 PM EST [facility] Blood 01/03/2024 11:3 2 AM EST 01/03/2024 5:21 PM EST us Hank Hitchcock MD POINT OF CARE TEST ORDERABLE S Final Result [facility]
[address] [place] [address], * POC Glucose Once (01/03/2024 5:25 AM EST) Pathologist [facility] Glucose 100 70 - 130 mg/dL 01/03/2024 5:28 AM EST [facility] Blood 01/03/2024 5:25 AM EST 01/03/2024 5:28 AM EST us Hank Hitchcock MD POINT OF CARE TEST ORDERABLE S Final Result [facility]
[address] [place] [address], * (ABNORMAL) Blood Gas, Venous With Co-Ox (01/03/2024 4:23 AM EST) Site Nurse/Dr Draw 01/03/2024 4:24 AM EST [facility] pH, Venous 7.355 7.310 - 7.410 pH Units 01/03/2024 4:24 AM EST [facility] pCO2, Venous 51.3(H) 41.0 - 51.0 mm Hg 01/03/2024 4:24 AM EST [facility] Comment:83 Value above refer ence range pO2, Venous 18.5(L) 27.0 - 53.0 mm Hg 01/03/2024 4:24 AM [facility] Comment:84 Value below refer ence range HCO3, Venous 28.6(H) 22.0 - 28.0 mmol/L 01/03/2024 4:24 AM [facility] Base Excess, Venous 2.0 -2.0 - 2.0 mmol/L 01/03/2024 4:24 AM [facility] Hemoglobin, Blood Gas 15.1 13.5 - 17.5 g/dL 01/03/2024 4:24 AM [facility] Oxyhemoglobin Venous 27.7 % 12/13 4:24 AM [facility] Comment:84 Value below refer ence range Methemoglobin Venous 0.5 % 12/13 4:24 AM [facility] Carboxyhemoglobin Venous 1.2 % 01/03/2024 4:24 AM [facility] CO2 Content 30.2 22 - 33 mmol/L 01/03/2024 4:24 AM [facility] Temperature 37.0 01/03/2024 4:24 AM [facility] Barometric Pressure for Blood Gas 01/03/2024 4:24 AM [facility] Comment:N/A Modality Nasal Cannula 01/03/2024 4:24 AM [facility] FIO2 28 % 01/03/2024 4:24 AM [facility] Rate 0 Breaths/ minute 01/03/2024 4:24 AM [facility] PIP 0 cmH2O 01/03/2024 4:24 AM [facility] Comment:Meter: [id number] [employer] Driver: [id number] IPAP 0 01/03/2024 4:24 AM [facility] EPAP 0 01/03/2024 4:24 AM [facility] Venous Blood 01/03/2024 4:23 AM EST 01/03/2024 4:23 AM EST us Hank Hitchcock MD LAB BLOOD ORDERABLES Final R esult [facility]
[address] [place] [address], * (ABNORMAL) Basic Metabolic Panel (01/03/2024 4:23 AM EST) Glucose 102(H) 65 - 99 mg/dL 01/03/2024 6:15 AM EST [facility] BUN 20 8 - 23 mg/dL 01/03/2024 6:15 AM EST [facility] Creatinine 1.13 0.76 - 1.27 mg/dL 01/03/2024 6:15 AM EST [facility] Sodium 142 136 - 145 mmol/L 01/03/2024 6:15 AM EST [facility] Potassium 4.9 3.5 - 5.2 mmol/L 01/03/2024 6:15 AM EST [facility] Chloride 107 98 - 107 mmol/L 01/03/2024 6:15 AM EST [facility] CO2 26.0 22.0 - 29.0 mmol/L 01/03/2024 6:15 AM EST [facility] Calcium 8.7 8.6 - 10.5 mg/dL 01/03/2024 6:15 AM EST [facility] BUN/Creatinine Ratio 17.7 7.0 - 25.0 01/03/2024 6:15 AM EST [facility] Anion Gap 9.0 5.0 - 15.0 mmol/L 01/03/2024 6:15 AM EST [facility] eGFR 66.9 >60.0 mL/min/1.7 3 01/03/2024 6:15 AM EST [facility] Blood Venipuncture / Unknown 01/03/2024 4:23 AM EST 01/03/2024 5:30 AM EST [facility] - 01/03/2024 6:15 AM EST GFR Normal >60 Chronic Kidney Disease <60 Kidney Failure <15 The GFR formula is only valid for adults with stable renal function between ages 18 and 70. us Tyrone Vee MD LAB BLOOD ORDERABLES Final Resu lt [facility]
[address] [place] [address], * (ABNORMAL) CBC (No Diff) (01/03/2024 4:23 AM EST) WBC 14.22(H) 3.40 - 10.80 10*3/mm3 01/03/2024 5:51 AM EST [facility] RBC 5.04 4.14 - 5.80 10*6/mm3 01/03/2024 5:51 AM EST [facility] Hemoglobin 14.1 13.0 - 17.7 g/dL 01/03/2024 5:51 AM EST [facility] Hematocrit 44.7 37.5 - 51.0 % 01/03/2024 5:51 AM EST [facility] MCV 88.7 79.0 - 97.0 fL 01/03/2024 5:51 AM EST [facility] MCH 28.0 26.6 - 33.0 pg 01/03/2024 5:51 AM EST [facility] MCHC 31.5 31.5 - 35.7 g/dL 01/03/2024 5:51 AM EST [facility] RDW 15.3 12.3 - 15.4 % 01/03/2024 5:51 AM EST [facility] RDW-SD 49.3 37.0 - 54.0 fl 01/03/2024 5:51 AM EST [facility] MPV 11.0 6.0 - 12.0 fL 01/03/2024 5:51 AM EST [facility] Platelets 160 140 - 450 10*3/mm3 01/03/2024 5:51 AM EST [facility] Blood Venipuncture / Unknown 01/03/2024 4:23 AM EST 01/03/2024 5:40 AM EST Tyrone Vee MD LAB BLOOD ORDERABLES Final Resu lt Performing Organization Address City/[facility]/ZIP Co de Phone Number [facility]
[address] [place] [address], * Magnesium (01/03/2024 4:23 AM EST) Magnesium 2.3 1.6 - 2.4 mg/dL 01/03/2024 6:15 AM EST [facility] Blood Venipuncture / Unknown 01/03/2024 4:23 AM EST 01/03/2024 5:30 AM EST Tyrone Vee MD LAB BLOOD ORDERABLES Final Resu lt Performing Organization Address [facility]/ZIP Co de Phone Number [facility]
[address] [place] [address], * POC Glucose Once (01/02/2024 11:35 PM EST) Glucose 121 70 - 130 mg/dL 01/02/2024 11:37 PM EST [facility] Blood 01/02/2024 11:3 5 PM EST 01/02/2024 11:37 PM EST Hank Hitchcock MD POINT OF CARE TEST ORDERABLE S Final Result Performing Organization Address City/[facility]/ZIP Co de Phone Number [facility]
[address] [place] [address], * POC Glucose Once (01/02/2024 5:37 PM EST) Glucose 115 70 - 130 mg/dL 01/02/2024 5:38 PM EST [facility] Blood 01/02/2024 5:37 PM EST 01/02/2024 5:38 PM EST us Hank Hitchcock MD POINT OF CARE TEST ORDERABLE S Final Result [facility]
[address] [id number], * MRI Brain Without Contrast (01/02/2024 3:04 [...] MD 01/02/2024 3:28 PM EST Workstation ID: [id number] Narrative 01/02/2024 3:28 PM EST MRI ANGIOGRAM HEAD WO CONTRAST, MRI BRAIN WO CONTRAST Date of Exam: 01/02/2024 2:00 PM EST Indication: Stroke, follow up. Comparison: Noncontrast head CT and head CTA from the same date. Technique: ??Routine 3-D lwnu-mz-[id number] gradient echo imaging was obtained of the [...] from the same date. Technique: Routine 3-D lgzp-sf-kxjnmi gradient echo imaging was obtainedof the head [...] MD 01/02/2024 3:28 PM EST Workstation ID: [id number] aHnk Hitchcock MD [facility] MRI ORDERABLES Final Res ult * MRI [...] MD 01/02/2024 3:28 PM EST Workstation ID: [id number] Narrative 01/02/2024 3:28 PM EST MRI ANGIOGRAM HEAD WO CONTRAST, MRI BRAIN WO CONTRAST Date of Exam: 01/02/2024 2:00 PM EST Indication: Stroke, follow up. Comparison: Noncontrast head CT and head CTA from the same date. Technique: ??Routine 3-D mvmb-dq-fgbuhk gradient echo imaging was obtained of the [...] from the same date. Technique: Routine 3-D yrco-pf-bxqldx gradient echo imaging was obtainedof the head [...] MD 01/02/2024 3:28 PM EST Workstation ID: [id number] Malcom Contreras MD IMG MRI ORDERABLES Final Re sult * POC Glucose Once (01/02/2024 11:41 AM EST) Glucose 124 70 - 130 mg/dL 01/02/2024 11:42 AM EST [facility] Blood 01/02/2024 11:4 1 AM EST 01/02/2024 11:42 AM EST Hank Hitchcock MD POINT OF CARE TEST ORDERABLE S Final Result Performing Organization Address City/[facility]/ZIP Co de Phone Number [facility]
[address] [place] [address], [place] [phone] * (ABNORMAL) Phosphorus (01/02/2024 7:31 AM EST) Phosphorus 4.8(H) 2.5 - 4.5 mg/dL 01/02/2024 8:53 AM EST [facility] Blood Venipuncture / Unknown 01/02/2024 7:31 AM EST 01/02/2024 7:57 AM EST Valdemar Curran [employer] LAB BLOOD ORDERABLES Sarah l Result [facility]
[address] [place] [address], [place] [phone] * (ABNORMAL) CBC Auto Differential (01/02/2024 7:31 AM EST) [facility] WBC 12.19(H) 3.40 - 10.80 10*3/mm3 01/02/2024 8:13 AM EST [facility] RBC 5.20 4.14 - 5.80 10*6/mm3 01/02/2024 8:13 AM [facility] Hemoglobin 14.5 13.0 - 17.7 g/dL 01/02/2024 8:13 AM [facility] Hematocrit 45.7 37.5 - 51.0 % 01/02/2024 8:13 AM [facility] MCV 87.9 79.0 - 97.0 fL 01/02/2024 8:13 AM [facility] MCH 27.9 26.6 - 33.0 pg 01/02/2024 8:13 AM [facility] MCHC 31.7 31.5 - 35.7 g/dL 01/02/2024 8:13 AM [facility] RDW 14.8 12.3 - 15.4 % 01/02/2024 8:13 AM [facility] RDW-SD 47.4 37.0 - 54.0 fl 01/02/2024 8:13 AM [facility] MPV 10.8 6.0 - 12.0 fL 01/02/2024 8:13 AM [facility] Platelets 165 140 - 450 10*3/mm3 01/02/2024 8:13 AM [facility] Neutrophil % 91.7(H) 42.7 - 76.0 % 01/02/2024 8:13 AM [facility] Lymphocyte % 5.0(L) 19.6 - 45.3 % 01/02/2024 8:13 AM [facility] Monocyte % 2.7(L) 5.0 - 12.0 % 01/02/2024 8:13 AM [facility] Eosinophil % 0.0(L) 0.3 - 6.2 % 01/02/2024 8:13 AM EST [facility] Basophil % 0.1 0.0 - 1.5 % 01/02/2024 8:13 AM EST [facility] Immature Grans % 0.5 0.0 - 0.5 % 01/02/2024 8:13 AM EST [facility] Neutrophils, Absolute 11.18(H) 1.70 - 7.00 10*3/mm3 01/02/2024 8:13 AM EST [facility] Lymphocytes, Absolute 0.61(L) 0.70 - 3.10 10*3/mm3 01/02/2024 8:13 AM [facility] Monocytes, Absolute 0.33 0.10 - 0.90 10*3/mm3 01/02/2024 8:13 AM [facility] Eosinophils, Absolute 0.00 0.00 - 0.40 10*3/mm3 01/02/2024 8:13 AM [facility] Basophils, Absolute 0.01 0.00 - 0.20 10*3/mm3 01/02/2024 8:13 AM [facility] Immature Grans, Absolute 0.06(H) 0.00 - 0.05 10*3/mm3 01/02/2024 8:13 AM [facility] nRBC 0.0 0.0 - 0.2 /100 WBC 01/02/2024 8:13 AM [facility] Blood Venipuncture / Unknown 01/02/2024 7:31 AM EST 01/02/2024 7:57 AM EST us Hank Hitchcock MD LAB BLOOD ORDERABLES Final R esult [facility]
[address] [place] [address], * (ABNORMAL) Magnesium (01/02/2024 7:31 AM EST) Magnesium 2.5(H) 1.6 - 2.4 mg/dL 01/02/2024 8:53 AM EST [facility] Blood Venipuncture / Unknown 01/02/2024 7:31 AM EST 01/02/2024 7:57 AM EST Tyrone Vee MD LAB BLOOD ORDERABLES Final Resu lt [facility]
[address] [place] [address], * (ABNORMAL) Basic Metabolic Panel (01/02/2024 7:31 AM EST) Glucose 121(H) 65 - 99 mg/dL 01/02/2024 8:53 AM EST [facility] BUN 15 8 - 23 mg/dL 01/02/2024 8:53 AM [facility] Creatinine 1.38(H) 0.76 - 1.27 mg/dL 01/02/2024 8:53 AM EST [facility] Sodium 144 136 - 145 mmol/L 01/02/2024 8:53 AM [facility] Potassium 4.5 3.5 - 5.2 mmol/L 01/02/2024 8:53 AM [facility] Comment:Slight hemolysis det ected by analyzer. Result may be falsely elevated. Chloride 109(H) 98 - 107 mmol/L 01/02/2024 8:53 AM [facility] CO2 19.0(L) 22.0 - 29.0 mmol/L 01/02/2024 8:53 AM [facility] Calcium 8.3(L) 8.6 - 10.5 mg/dL 01/02/2024 8:53 AM [facility] BUN/Creatinine Ratio 10.9 7.0 - 25.0 01/02/2024 8:53 AM [facility] Anion Gap 16.0(H) 5.0 - 15.0 mmol/L 01/02/2024 8:53 AM [facility] eGFR 52.7(L) >60.0 mL/min/1.7 3 01/02/2024 8:53 AM EST [facility] Blood Venipuncture / Unknown 01/02/2024 7:31 AM EST 01/02/2024 7:57 AM EST Narrative [facility] - 01/02/2024 8:53 AM EST GFR Normal >60 Chronic Kidney Disease <60 Kidney Failure <15 The GFR formula is only valid for adults with stable renal function between ages 18 and 70. us Hank Hitchcock MD LAB BLOOD ORDERABLES Final R esult [facility]
[address] [place] [address], * POC Glucose Once (01/02/2024 4:59 AM EST) Glucose 129 70 - 130 mg/dL 01/02/2024 5:01 AM EST [facility] Blood 01/02/2024 4:59 AM EST 01/02/2024 5:01 AM EST us Hank Hitchcock MD POINT OF CARE TEST ORDERABLE S Final Result Performing Organization Address City/[facility]/ZIP Co de Phone Number [facility]
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 Otherwise normal CT angiogram of the head as above. Electronically Signed: Ivan Jon MD 01/02/2024 10:02 AM EST Workstation ID: [id number] Narrative 01/02/2024 10:[address] ANGIOGRAM [...] MD 01/02/2024 10:02 AM EST Workstation ID: [id number] Arely Rodriguez PA-C IM CT ORDERABLES Final [...] MD 01/02/2024 8:25 AM EST Workstation ID: [id number] Narrative 01/02/2024 8:[address] HEAD [...] MD 01/02/2024 8:25 AM EST Workstation ID: [id number] us Hank Hitchcock MD IMG CT ORDERABLES Final Resu lt * (ABNORMAL) POC Glucose Once (01/02/2024 12:14 AM EST) Glucose 177(H) 70 - 130 mg/dL 01/02/2024 12:16 AM EST [facility] Blood 01/02/2024 12:1 4 AM EST 01/02/2024 12:16 AM EST us Hank Hitchcock MD POINT OF CARE TEST ORDERABLE S Final Result [facility]
[address] [place] [address], [place] [phone] * EEG AWAKE OR ASLEEP PORTABLE (01/01/2024 7:04 PM EST) Impressions NEUROLOGY - 01/01/2024 7:32 PM EST Diffuse cerebral dysfunction of moderate degree, nonspecific No ongoing seizures are seen This report is transcribed using the [employer] dictation system. ?? Narrative NEUROLOGY - 01/01/2024 [...] - 130 mg/dL 01/01/2024 6:15 PM EST [facility] Blood 01/01/2024 6:13 PM EST 01/01/2024 6:15 PM EST Hank Hitchcock MD POINT OF CARE TEST ORDERABLE S Final Result [facility]
[address] [place] [address], [place] [phone] * CT Head Without Contrast (01/01/2024 5:14 [...] MD 01/01/2024 5:25 PM EST Workstation ID: [id number] Narrative 01/01/2024 5:[address] HEAD [...] MD 01/01/2024 5:25 PM EST Workstation ID: [id number] Tyrone Vee MD IM CT ORDERABLES Final Result * (ABNORMAL) Basic Metabolic Panel (01/01/2024 3:39 PM EST) Glucose 202(H) 65 - 99 mg/dL 01/01/2024 4:18 PM EST [facility] BUN 19 8 - 23 mg/dL 01/01/2024 4:18 PM EST [facility] Creatinine 1.43(H) 0.76 - 1.27 mg/dL 01/01/2024 4:18 PM EST [facility] Sodium 140 136 - 145 mmol/L 01/01/2024 4:18 PM EST [facility] Potassium 4.0 3.5 - 5.2 mmol/L 01/01/2024 4:18 PM EST [facility] Comment:Slight hemolysis det ected by analyzer. Result may be falsely elevated. Chloride 103 98 - 107 mmol/L 01/01/2024 4:18 PM EST [facility] CO2 13.0(L) 22.0 - 29.0 mmol/L 01/01/2024 4:18 PM EST [facility] Calcium 8.6 8.6 - 10.5 mg/dL 01/01/2024 4:18 PM EST [facility] BUN/Creatinine Ratio 13.3 7.0 - 25.0 01/01/2024 4:18 PM EST [facility] Anion Gap 24.0(H) 5.0 - 15.0 mmol/L 01/01/2024 4:18 PM EST [facility] eGFR 50.5(L) >60.0 mL/min/1.7 3 01/01/2024 4:18 PM EST [facility] Blood Structure of left upper limb / Unknown Line / Unknown 01/01/2024 3:39 PM EST 01/01/2024 3:53 PM EST Narrative [facility] - 01/01/2024 4:18 PM EST GFR Normal >60 Chronic Kidney Disease <60 Kidney Failure <15 The GFR formula is only valid for adults with stable renal function between ages 18 and 70. Kenna Manley PA-C LAB BLOOD ORDERABLES Final Result [facility]
[address] [place] [address], * (ABNORMAL) POC Glucose Once (01/01/2024 3:31 PM EST) Glucose 167(H) 70 - 130 mg/dL 01/01/2024 3:33 PM EST [facility] Blood 01/01/2024 3:31 PM EST 01/01/2024 3:33 PM EST Hank Hitchcock MD POINT OF CARE TEST ORDERABLE S Final Result [facility]
[address] [place] [address], [place] [phone] * FL C Arm During Surgery (01/01/2024 2:50 PM EST) Narrative SYSTEMGENERATED, DOCUMENTATION - 01/01/2024 2:51 PM EST This procedure was auto-finalized with no dictation required. Hank Hitchcock MD IM FLUOROSCOPY ORDERABLES F inal Result * SCANNED - TELEMETRY (01/01/2024) [facility] New Onbase ECG ORDERABLES Final Result * SCANNED - TELEMETRY (01/01/2024) [facility] ECG ORDERABLES Final Result documented in this [...] Daily, First dose on Sat01/01/24 at 1715, ([facility]) Take with food if GI upset [...] EST 500 mg lidocaine-EPINEPHrine (XYLOCAINE W/EPI) 0.5 %-1:[id number] injection As Needed, Starting on Sat01/01/24 at [...] tablet 40 mg 40 mg, Oral, Every Permastone Mechanic, First dose on Sat01/07/24 at 0600, Swallow [...] Daily, First dose on Sat01/01/24 at 1715, ([facility]) Take with food if GI upset [...] at 1245, For 1 dose, Group 2 ([place]) Hazardous Drug - Reproductive Risk Only - [...] VTE Prophylaxis 2037 (Given - Provider: Tonia Stephesn RN) 2019 (Given - Provider: Tonia Stephens [...] tablet 40 mg 40 mg, Oral, Every Permastone Mechanic, First dose on Sat01/07/24 at 0600, Swallow whole; do not crush, split, or chew. 0608 (Given - Provider: Tonia Stephens RN) pantoprazole (PROTONIX) injection 40 mg (CANCELED) 40 mg, Intravenous, Every Permastone Mechanic, First dose on Sat01/02/24 at 0600, Dilute with 10 mL of 0.9% NaCl and give IV push over 2 minutes., Indications: Gastroesophageal Reflux Disease 0459 (Given - Provider: Marce Prado RN - Comment: [facility])0600 (Canceled Entry - Provider: Marce Prado RN) [...] BPA Driven Protocol Open Order & [facility] Electrolyte Replacement Protocol Algorithm to View Details [...] Provider: Tonia Stephens RN)0917 (Given - Provider: Lonra Phelan RN) sodium chloride 0.9 % infusion [...] ineffective. 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
--- OUTSIDE RECORDS SUMMARY | 2024-09-29 20:59 | XMS_ITS | Encounter Summary ---
Author Organization [facility] Address [address] [place] [id number] Care Team Providers Care Strainer Mill Operator Name Role Phone Cathy Blancas VARNISH BLENDER Primary Care Provider [phone] Encounter Details Date Type Department Care Team (Late st Contact Info) Description 01/24/2023 Refill [facility] [address] [place] [address] Cathy Blancas, VARNISH BLENDER [address] [place], [place] [id number] Social History Tobacco Use Types Packs/Day Years [...] Description 12/15/2024 8:30 AM EST Office Visit [facility] CARDIOLOGY [address] [place] [phone] Hannah Martinez APRN [address] [place] [address] 02/04/2025 9:00 AM EDT Office Visit [facility] NEUROLOGY [address] [facility] [address] [place] [address] Britany Braxton MD [address]01 [facility] [address] [place] [address] documented as of this encounter Visit Diagnoses Not on filedocumented in this encounter Care Teams Strainer Mill Operator Relationship Specialty Start Date End Date Cathy Blancas, VARNISH BLENDER [address] [place] [address] PCP - General Family Medicine 09/20/22 02/12/23 documented as of this encounter
--- OUTSIDE RECORDS SUMMARY | 2024-09-29 20:59 | XMS_ITS | Encounter Summary ---
[facility] Address [address] [place] [address] Care Team Providers Care Assurance Sourcing Manager Name Role Phone Magalis Cathy N BREAKDOWN WORKER Primary Care Provider [phone] Reason for Visit * Diagnostic Imaging (Routine) - Closed Specialty Diagnoses / Procedures Referred By Contac t Referred To Contact Cardiology Diagnoses Mitral valve insufficiency, unspecified etiology Procedures Adult Transthoracic Echo Complete W/ Cont if Necessary Per Protocol Carleen Dave APRN Phone: tel: fax: [facility] [address] [place] [address] Phone: tel: fax: Referral ID Status Reason Start Date Expiration Date Visits Re quested Visits Authorized [id number] Closed 12/06/2022 12/06/2023 1 1 Encounter Details Date Type Department Care Team (Latest Contact Info) Description 01/07/2023 9:15 AM EST Ancillary Procedure [facility] [address] [place] [address] Mitral [...] [facility] [address] [place] [phone] Hannah Martinez APRN [address] [place] [address] 02/04/2025 9:00 AM EDT Office Visit [facility] NEUROLOGY [address] [facility] [address] [place] [address] Britany Braxton MD [address] [facility] [address] [place] [address] documented as of this encounter [...] The left ventricular wall motion is normal. aCrleen Dave APRN CV ECHO ORDERABLES Final Result documented in this encounter Visit Diagnoses Diagnosis Mitral valve insufficiency, unspecified etiology documented in this encounter Care Teams Assurance Sourcing Manager Relationship Specialty Start Date End Date Cathy Blancas APRN [address] [place] [address] PCP - General Family Medicine 09/20/22 02/12/23 documented as of this encounter
--- OUTSIDE RECORDS SUMMARY | 2024-09-29 20:59 | XMS_ITS | Encounter Summary ---
Author Organization [facility] ystem Address [address] [place] [address] Care Team Providers Care Health Records Technology Teacher Name Role Phone Cathy Blancas FIELD CASHIER Primary Care Provider [phone] Reason for Visit * Reason Onset Date Comments Med Refill 09/20/2022 Encounter Details Date Type Department Care Team (Late st Contact Info) Description 09/20/2022 Refill [facility] [address] [place] [address] [place] [address] Cathy Blancas, RN Social [...] 8:30 AM EST Office Visit [facility] [address] [place] [address] Hannah Martinez APRN [address] [place] [address] 02/04/2025 9:00 AM EDT Office Visit [facility] NEUR[facility] [address] [facility] [address] [place] [address] Britany Braxton MD [address] [facility] [address] [place] [address] documented as of this encounter Visit Diagnoses Not on filedocumented in this encounter Care Teams Health Records Technology Teacher Relationship Specialty Start Date End Date Cathy Blancas, FIELD CASHIER [address] [place] [address] PCP - General Family Medicine 09/20/22 02/12/23 documented as of this encounter
--- OUTSIDE RECORDS SUMMARY | 2024-09-29 20:59 | XMS_ITS | Encounter Summary ---
Author Organization [facility] ystem Address [address] [place] [address] Care Team Providers Care Bilingual Medical Assistant Name Role Phone Unavailable Primary Care Provider Unavailabl e Encounter Details Date Type Department Care Team (Late st Contact Info) Description 02/13/2013 Conversion Encounter [facility] HISTORICAL CONV [address] [place] [address] Interface, See Report Social History [...] Description 12/15/2024 8:30 AM EST Office Visit [facility] CARDIOLOGY [address] [place] [phone] Hannah Martinez, SALESPERSON M[employer]'S [employer]ATS [address] [place] [address] 02/04/2025 9:00 AM EDT Office Visit [facility] [address] [facility] 204 [place] [address] Britany Braxton MD 210 [facility] [address] [place] [address] documented as of this encounter Procedures Procedure Name Priority Date/Time Associated Diagnosis Comments CONVERTED (HISTORICAL) SURGICAL PATHOLOGY Routine 02/13/2013 9:54 AM EDT documented in this encounter Results * Converted Surgical Pathology (02/13/2013 9:54 AM EDT) 02/13/2013 9:54 AM EDT Narrative [facility] - 02/16/2013 11:06 AM EDT [facility] [address] [place] [address] SURGICAL PATHOLOGY REPORT Patient Name: MARILYN TERRELL MR#: [id number] : 1945 Gender: M Ordering Physician: SHAW BENITES Copy To: ?? Location: [address] [place] [address] Collected: 02/13/2013 Received: 02/13/2013 Reported: 02/16/2013 Clinical Diagnosis and History The working history is herniated disc, L4-L5 left. Final Diagnosis DISC, DISCECTOMY, L4-L5 LEFT: ? Fragments of fibrohyaline cartilage, no acute inflammation or metastatic disease identified. DGD/rw Amendments: Electronically Signed Out By JE ORTEZ Specimen(s) Received: Intervertebral disc Gross Description Received in formalin labeled disc (L4-L5 left) consists of 6cc of orosco fragments. Staff Command And Control Officer sections are submitted in one block. ??MHB/rw Microscopic Description See diagnosis. ??DGD/rw Procedures/Addenda us See Report Interface PATHOLOGY/CYTOLOGY ORDERABL ES Final Result [facility] [address] [place] [address], documented in this encounter Visit Diagnoses Not on filedocumented in this encounter
--- OUTSIDE RECORDS SUMMARY | 2024-09-29 20:59 | XMS_ITS | Encounter Summary ---
[facility] Address [address] [place] [address] Care Team Providers Care Log Buyer Name Role Phone Robinson Manley MD Primary Care Provider [phone]- [phone] Reason for Visit * Reason Onset Date Comments KIRK DONAHUEAPPT 12/03/2023 Encounter Details Date Type Department Care Team (Late st Contact Info) Description 12/03/[address] [facility] CARDI[facility] [address] [place] [address] Naif Martinez APRN [address] [place] [address] NAIF MARTINEZ APRN-APPT Social History Tobacco Use Types Packs/Day Years Used Date Smoking Tobacco: Former Cigarettes Passive Smoke Exposure: Past Smokeless Tobacco: Never Alcohol Use Standard Drinks/Week Comments Yes 0 (1 standard drink = 0.6 oz pur e alcohol) BEER PER [facility] Utilities Answer Date Recorded In the past 12 months has [employer], gas, oil, or water [employer] threatened to shut off services in your [...] or training? Not on file Preferred Language Armenian 01/03/2024 Sex and Gender Information Value Date Recorded Sex Assigned at Not on file Legal Sex Male 1:15 PM EDT Gender Identity Not on file Sexual Orientation Not on file documented as of this encounter Miscellaneous Notes * Telephone Encounter - Konstantin Ferreira CMA - 12/03/2023 11:17 AM EST Can you move patient's appt up sooner for cardiac clearance? * Telephone Encounter - Alysha Lamas RegSched Rep - 12/03/2023 10:51 AM EST Caller: Santo Terrell Relationship to patient: Self Best call back number: [phone] Chief complaint: Type of visit: FOLLOW UP [facility] [address] [place] [phone] Naif Martinez APRN [address] [place] [address] 02/04/2025 9:00 AM EDT Office Visit [facility] [address] [facility] [address] [place] [address] Britany Braxton MD 2101 [facility] [address] [place] [address] documented as of this encounter Visit Diagnoses Not on filedocumented in this encounter Care Teams Log Buyer Relationship Specialty Start Date End Date Robinson Manley MD [address] [place] [address] PCP - General Family Medicine 07/09/23 documented as of this encounter
--- OUTSIDE RECORDS SUMMARY | 2024-09-29 20:59 | XMS_ITS | Encounter Summary ---
Author Organization [facility] ystem Address [address] [place] [address] Care Team Providers Care Extrusion Line Operator Name Role Phone Cathy Blancas COMPLIANCE ASSISTANT Primary Care Provider +1- [phone] Reason for Visit * Reason Onset Date Comments Med Refill 09/21/2022 Encounter Details Date Type Department Care Team (Late st Contact Info) Description 09/21/2022 Refill [facility] PRIMARY CARE [address] [place] [address] [place] [address] Cathy Balncas, COMPLIANCE ASSISTANT [address] [place] [address] Social History Tobacco Use Types [...] Description 12/15/2024 8:30 AM EST Office Visit [facility] C[facility] [address] [place] [phone] Hannah Martinez APRN [address] [place] [address] 02/04/2025 9:00 AM EDT Office Visit [facility] [address] [facility] [address] [place] [address] Britany Braxton MD 210 [facility] [address] [place] [address] documented as of this encounter Visit Diagnoses Not on filedocumented in this encounter Care Teams Extrusion Line Operator Relationship Specialty Start Date End Date Cathy Blancas APRN [address] [place] [address] PCP - General Family Medicine 09/20/22 02/12/23 documented as of this encounter
--- OUTSIDE RECORDS SUMMARY | 2024-09-29 20:59 | XMS_ITS | Encounter Summary ---
Author Organization [facility] ystem Address [address] [place] [address] Care Team Providers Care Embossing Clerk Name Role Phone Robinson Manley MD Primary Care Provider +1- [phone] Encounter Details Date Type Department Care Team (Latest Contact Info) Description 12/23/2023 10:30 AM EST Pre-Admission Testing [facility] [address] [place] [address] Spinal stenosis of lumbar region, [...] or training? Not on file Preferred Language Georgian 12/23/2023 Sex and Gender Information Value Date [...] Description 12/15/2024 8:30 AM EST Office Visit [facility] C[facility] [address] [place] [phone] Hannah Martinez APRN [address] [place] [address] 02/04/2025 9:00 AM EDT Office Visit [facility] [address] [facility] [address] [place] [address] Britany Braxton MD 210 [facility] [address] [place] [address] documented as of this encounter [...] - 14.5 Seconds 12/23/2023 11:24 AM EST [facility] INR 1.94(H) 0.89 - 1.12 12/23/2023 11:24 AM EST [facility] Blood Venipuncture / Unknown 12/23/2023 10:03 AM EST 12/23/2023 10:52 AM EST us Hank Guzman MD LAB BLOOD ORDERABLES Final R esult [facility]
[address] [place] [address], * (ABNORMAL) Hemoglobin A1c (12/23/2023 10:03 AM EST) Hemoglobin A1C 5.80(H) 4.80 - 5.60 % 12/23/2023 11:12 AM EST [facility] Blood Venipuncture / Unknown 12/23/2023 10:03 AM EST 12/23/2023 10:52 AM EST [facility] - 12/23/2023 11:12 AM EST Hemoglobin A1C Ranges: Increased Risk for Diabetes ??5.7% to 6.4% Diabetes ? >= 6.5% Diabetic Goal ?< 7.0% Hank Guzman MD LAB BLOOD ORDERABLES Final R esult Performing Organization Address City/[facility]/ZIP Co de Phone Number [facility]
[address] [place] [address], [place] [phone] * MRSA Screen Culture (Outpatient) - Swab, Nares (12/23/2023 10:01 AM EST) Pathologist [facility] MRSA Screen Cx No Methicillin Resistant Staphylococcus aureus isolated MAYA 12/24/2023 11:36 AM EST [facility] Swab Structure of anterior naris / Unknown Collection / Unknown 12/23/2023 10:01 AM EST 12/23/2023 11:04 AM EST [facility] - 12/24/2023 11:36 AM EST The negative predictive value of this diagnostic test is high and should only be used to consider de-escalating anti-MRSA therapy. A positive result may indicate colonization with MRSA and must be correlated clinically. Kenna Manley PA-C MICROBIOLOGY - GENERAL KRISTYN MURRY Final Result Performing Organization Address [facility]/ZIP Co de Phone Number [facility]
[address] [place] [address], [place] [phone] * (ABNORMAL) Basic Metabolic Panel (12/23/2023 10:01 AM EST) Glucose 101(H) 65 - 99 mg/dL 12/23/2023 11:19 AM EST [facility] BUN 22 8 - 23 mg/dL 12/23/2023 11:19 AM [facility] Creatinine 1.45(H) 0.76 - 1.27 mg/dL 12/23/2023 11:19 AM [facility] Sodium 136 136 - 145 mmol/L 12/23/2023 11:19 AM [facility] Potassium 4.5 3.5 - 5.2 mmol/L 12/23/2023 11:19 AM [facility] Comment:Slight hemolysis det ected by analyzer. Result may be falsely elevated. Chloride 103 98 - 107 mmol/L 12/23/2023 11:19 AM [facility] CO2 21.0(L) 22.0 - 29.0 mmol/L 12/23/2023 11:19 AM [facility] Calcium 9.5 8.6 - 10.5 mg/dL 12/23/2023 11:19 AM [facility] BUN/Creatinine Ratio 15.2 7.0 - 25.0 12/23/2023 11:19 AM [facility] Anion Gap 12.0 5.0 - 15.0 mmol/L 12/23/2023 11:19 AM [facility] eGFR 49.6(L) >60.0 mL/min/1.7 3 12/23/2023 11:19 AM [facility] Blood Venipuncture / Unknown 12/23/2023 10:01 AM EST 12/23/2023 10:52 AM EST [facility] - 12/23/2023 11:19 AM EST GFR Normal >60 Chronic Kidney Disease <60 Kidney Failure <15 The GFR formula is only valid for adults with stable renal function between ages 18 and 70. Kenna Manley PA-C LAB BLOOD ORDERABLES Final Result [facility]
[address] [place] [address], * (ABNORMAL) CBC (No Diff) (12/23/2023 10:01 AM EST) WBC 11.03(H) 3.40 - 10.80 10*3/mm3 12/23/2023 12:31 PM EST [facility] RBC 5.84(H) 4.14 - 5.80 10*6/mm3 12/23/2023 12:31 PM [facility] Hemoglobin 17.1 13.0 - 17.7 g/dL 12/23/2023 12:31 PM [facility] Hematocrit 52.2(H) 37.5 - 51.0 % 12/23/2023 12:31 PM [facility] MCV 89.4 79.0 - 97.0 fL 12/23/2023 12:31 PM [facility] MCH 29.3 26.6 - 33.0 pg 12/23/2023 12:31 PM [facility] MCHC 32.8 31.5 - 35.7 g/dL 12/23/2023 12:31 PM [facility] RDW 14.7 12.3 - 15.4 % 12/23/2023 12:31 PM [facility] RDW-SD 48.0 37.0 - 54.0 fl 12/23/2023 12:31 PM [facility] MPV 11.1 6.0 - 12.0 fL 12/23/2023 12:31 PM [facility] Platelets 232 140 - 450 10*3/mm3 12/23/2023 12:31 PM [facility] Blood Venipuncture / Unknown 12/23/2023 10:01 AM EST 12/23/2023 10:52 AM EST Kenna Manley PA-C LAB BLOOD ORDERABLES Final Result [facility]
[address] [place] [address], documented in this encounter Visit Diagnoses Diagnosis Spinal stenosis of lumbar region, unspecified whether neurogenic claudication present Body mass index (BMI) 28.0-28.9, adult documented in this encounter Care Teams Embossing Clerk Relationship Specialty Start Date End Date Robinson Manley MD [address] [place] [address] PCP - General Family Medicine 07/09/23 documented as of this encounter
--- OUTSIDE RECORDS SUMMARY | 2024-09-29 20:59 | XMS_ITS | Encounter Summary ---
Author Organization [facility] yste Address [address] [place] [address] Care Team Providers Care Certified Control Systems Technician Name Role Phone Cathy Blancas SUPERVISOR DELIVERY DEPARTMENT Primary Care Provider +1- [phone] Encounter Details Date Type Department Care Team (Late st Contact Info) Description 11/19/2022 Telephone [facility] [address] [place] [address] Cathy Blancas, SUPERVISOR DELIVERY DEPARTMENT [address] [place], [place] [id number] Social History Tobacco Use Types Packs/Day Years [...] [facility] [address] [place] [phone] Hannah Martinez APRN [address] [place] [address] 02/04/2025 9:00 AM EDT Office Visit [facility] NEUR[facility] [address] [facility] [address] [place] [address] Britany Braxton MD [address] [facility] [address] [place] [address] documented as of this encounter Visit Diagnoses Not on filedocumented in this encounter Care Teams Certified Control Systems Technician Relationship Specialty Start Date End Date Cathy Blancas, SUPERVISOR DELIVERY DEPARTMENT [address] [place] [address] PCP - General Family Medicine 09/20/22 02/12/23 documented as of this encounter
--- OUTSIDE RECORDS SUMMARY | 2024-09-29 20:59 | XMS_ITS | Encounter Summary ---
Author Organization [facility] ystem Address [address] [place] [address] Care Team Providers Care Education Administrative Assistant Name Role Phone Robinson Manley MD Primary Care Provider +1- [phone] Encounter Details Date Type Department Care Team (Late st Contact Info) Description 07/09/2023 Telephone [facility] CARDI[facility] [address] [place] [address] Carleen Dave APRN 24 [place] [address] Social History Tobacco Use Types [...] back down. ----- Message ----- From: Carleen aDve APRN Sent: 07/09/2023 1:35 PM EDT To: [...] AM EST Office Visit [facility] [address] [place] [phone] Hannah Martinez APRN [address] [place] [address] 02/04/2025 9:00 AM EDT Office Visit [facility] 210 [facility] [address] [place] [address] Britany Braxton MD 210 [facility] 204 [place] [address] documented as of this encounter Visit Diagnoses Not on filedocumented in this encounter Care Teams Education Administrative Assistant Relationship Specialty Start Date End Date Robinson Manley MD [address] [place] [address] PCP - General Family Medicine 07/09/23 documented as of this encounter
--- OUTSIDE RECORDS SUMMARY | 2024-09-29 20:59 | XMS_ITS | Encounter Summary ---
Author Organization [facility] ystem Address [address] [place] [address] Care Team Providers Care Granite Fabricator Name Role Phone Robinson Manley MD Primary Care Provider +1- [phone] Reason for Visit * Reason Onset Date Comments Med Refill 12/17/2023 Encounter Details Date Type Department Care Team (Late st Contact Info) Description 12/17/2023 Refill [facility] NEUROSURGERY [address] [facility] [address] [place] [address] Kenna Manley, PA-C 1760 [facility] [address] [place] [address] Social History Tobacco Use Types Packs/Day Years [...] [facility] CARDIOLOGY [address] [place] [phone] Hannah Martinez, TRAVELING NURSE [address] [place] [address] 02/04/2025 9:00 AM EDT Office Visit [facility] NEUROLOGY 2101 [facility] 204 [place] [address] Britany Braxton MD 2101 [facility] 204 [place] [address] documented as of this encounter Visit Diagnoses Not on filedocumented in this encounter Care Teams Granite Fabricator Relationship Specialty Start Date End Date Robinson Manley MD [address] [place] [address] PCP - General Family Medicine 07/09/23 documented as of this encounter
--- OUTSIDE RECORDS SUMMARY | 2024-09-29 20:59 | XMS_ITS | Encounter Summary ---
Author Organization [facility] Address [address] [place] [address] Care Team Providers Care Statement Clerk Name Role Phone Robinson Manley MD Primary Care Provider +1- [phone] Reason for Referral * Surgical (Routine) - Authorized Specialty Diagnoses / Procedures Referred By Contac t Referred To Contact Diagnoses Spinal stenosis of lumbar region, unspecified whether neurogenic claudication present Procedures Case Request Kenna Manley PA-C [address] [facility] [address] [place], [place] [address] Phone: tel: fax: Referral ID Status Reason Start Date Expiration Date V isits Requested Visits Authorized [id number] Authorized 12/17/2023 12/16/2024 1 1 Encounter Details Date Type Department Care Team (Late st Contact Info) Description 12/17/2023 Prep for Surgery [facility] ORDERS ONLY [address] [place] [address] Kenna Manley PA-C [address] [facility] [address] [place] [address] Spinal stenosis of lumbar region, unspecified whether [...] [facility] [address] [place] [phone] Hannah Martinez, CATTLE TRADER [address] [place] [address] 02/04/2025 9:00 AM EDT Office Visit [facility] [address] [facility] [address] [place] [address] Britany Braxton MD [address] [facility] [address] [place] [address] documented as of this encounter Results * MRSA Screen Culture (Outpatient) - Swab, Nares (12/23/2023 10:01 AM EST) Pathologist [facility] MRSA Screen Cx No Methicillin Resistant Staphylococcus aureus isolated MAYA 12/24/2023 11:36 AM EST [facility] Swab Structure of anterior naris / Unknown Collection / Unknown 12/23/2023 10:01 AM EST 12/23/2023 11:04 AM EST [facility] - 12/24/2023 11:36 AM EST The negative predictive value of this diagnostic test is high and should only be used to consider de-escalating anti-MRSA therapy. A positive result may indicate colonization with MRSA and must be correlated clinically. Kenna Manley PA-C MICROBIOLOGY - GENERAL ORDJakob MURRY Final Result [facility]
[address] [place] [address], * (ABNORMAL) Basic Metabolic Panel (12/23/2023 10:01 AM EST) Pathologist [facility] Glucose 101(H) 65 - 99 mg/dL 12/23/2023 11:19 AM EST [facility] BUN 22 8 - 23 mg/dL 12/23/2023 11:19 AM EST [facility] Creatinine 1.45(H) 0.76 - 1.27 mg/dL 12/23/2023 11:19 AM EST [facility] Sodium 136 136 - 145 mmol/L 12/23/2023 11:19 AM EST [facility] Potassium 4.5 3.5 - 5.2 mmol/L 12/23/2023 11:19 AM EST [facility] Comment:Slight hemolysis det ected by analyzer. Result may be falsely elevated. Chloride 103 98 - 107 mmol/L 12/23/2023 11:19 AM EST [facility] CO2 21.0(L) 22.0 - 29.0 mmol/L 12/23/2023 11:19 AM EST [facility] Calcium 9.5 8.6 - 10.5 mg/dL 12/23/2023 11:19 AM [facility] BUN/Creatinine Ratio 15.2 7.0 - 25.0 12/23/2023 11:19 AM [facility] Anion Gap 12.0 5.0 - 15.0 mmol/L 12/23/2023 11:19 AM [facility] eGFR 49.6(L) >60.0 mL/min/1.7 3 12/23/2023 11:19 AM [facility] Blood Venipuncture / Unknown 12/23/2023 10:01 AM EST 12/23/2023 10:52 AM EST [facility] LAB[facility]ORY - 12/23/2023 11:19 AM EST GFR Normal >60 Chronic Kidney Disease <60 Kidney Failure <15 The GFR formula is only valid for adults with stable renal function between ages 18 and 70. Kenna Manley PA-C LAB BLOOD ORDERABLES Final Result [facility]
[address] [place] [address], * (ABNORMAL) CBC (No Diff) (12/23/2023 10:01 AM EST) WBC 11.03(H) 3.40 - 10.80 10*3/mm3 12/23/2023 12:31 PM [facility] RBC 5.84(H) 4.14 - 5.80 10*6/mm3 12/23/2023 12:31 PM [facility] Hemoglobin 17.1 13.0 - 17.7 g/dL 12/23/2023 12:31 PM [facility] Hematocrit 52.2(H) 37.5 - 51.0 % 12/23/2023 12:31 PM [facility] MCV 89.4 79.0 - 97.0 fL 12/23/2023 12:31 PM [facility] MCH 29.3 26.6 - 33.0 pg 12/23/2023 12:31 PM EST [facility] MCHC 32.8 31.5 - 35.7 g/dL 12/23/2023 12:31 PM EST [facility] RDW 14.7 12.3 - 15.4 % 12/23/2023 12:31 PM EST [facility] RDW-SD 48.0 37.0 - 54.0 fl 12/23/2023 12:31 PM EST [facility] MPV 11.1 6.0 - 12.0 fL 12/23/2023 12:31 PM EST [facility] Platelets 232 140 - 450 10*3/mm3 12/23/2023 12:31 PM EST [facility] Blood Venipuncture / Unknown 12/23/2023 10:01 AM EST 12/23/2023 10:52 AM EST Kenna Manley PA-C LAB BLOOD ORDERABLES Final Result [facility]
[address] [place] [address], documented in this encounter Visit Diagnoses Diagnosis Spinal stenosis of lumbar region, unspecified whether neurogenic claudication present- Primary Body mass index (BMI) 28.0-28.9, adult documented in this encounter Care Teams Statement Clerk Relationship Specialty Start Date End Date Robinson Manley MD [address] [facility] [address] [place] [address] PCP - General Family Medicine 07/09/23 documented as of this encounter
--- OUTSIDE RECORDS SUMMARY | 2024-09-29 20:59 | XMS_ITS | Encounter Summary ---
[facility] Address [address] [place] [address] Care Team Providers Care Medical Coding Specialist Name Role Phone Robinson Manley MD Primary Care Provider +1- [phone] Reason for Referral * Diagnostic Imaging (Routine) - Closed Specialty Diagnoses / Procedures Referred By Contac t Referred To Contact Diagnoses Abnormal echocardiogram Nonrheumatic mitral valve regurgitation Procedures Adult Transthoracic Echo Complete W/ Cont if Necessary Per Protocol Carleen Dave APRN [address] [place] [address] Phone: tel: fax: [facility] CARDI[facility] [address] [place] [address] Phone: tel: fax: Referral ID Status Reason Start Date Expiration Date Visits Re quested Visits Authorized [id number] Closed 07/09/2023 07/08/2024 1 1 Reason for Visit * Reason Comments Follow-up 6 month Atrial Fibrillation Encounter Details Date Type Department Care Team (Latest Contact Info) Description 07/09/2023 8:45 AM EDT Office Visit [facility] CARDIOLOGY [address] [place] [address] [place] [address] Carleen Dave APRN 24 [place] [address] Atrial fibrillation, unspecified type; Hypercholesterolemia; [...] rate controlled. He is on Xarelto. Avoids beta-loran for due to hypotension. CAD He denies [...] Allergies Allergen Reactions ??? Triple Antibiotic W/Hydrocortisone [Fsbrhmv-Sqqbvjle-Gfhtyefbp-Hc] Rash Current Outpatient Medications: ??? allopurinol (ZYLOPRIM) [...] Description 12/15/2024 8:30 AM EST Office Visit [facility] CARDIOLOGY [address] [place] [phone] Hannah Martinez APRN [address] [place] [address] 02/04/2025 9:00 AM EDT Office Visit [facility] NEUROLOGY 210 [facility] 204 [place] [address] Britany Braxton MD 210 [facility] 204 [place] [address] documented as of this encounter Results * ECHO COMPLETE W/ DOPPLER AND COLOR FLOW (12/10/2023 2:45 PM EST) Pathologist [facility] EF(MOD-bp) 58.5 % LVIDd 4.7 cm LVIDs [...] regurgitation documented in this encounter Care Teams Medical Coding Specialist Relationship Specialty Start Date End Date Robinson Manley MD [address] [place] [address] PCP - General Family Medicine 07/09/23 documented as of this encounter
--- OUTSIDE RECORDS SUMMARY | 2024-09-29 20:59 | XMS_ITS | Encounter Summary ---
Author Organization [facility] yste Address [address] [place] [address] Care Team Providers Care Washer Assembler Name Role Phone Cathy Blancas CONSERVATION OFFICER Primary Care Provider Reason for Visit * Reason Comments Med Refill Encounter Details Date Type Department Care Team (Late st Contact Info) Description 10/14/2022 Refill [facility] PRIMARY CARE [address] [place] [address] [place] [address] Cathy Blancas, CONSERVATION OFFICER [address] [place] [address] Social History Tobacco Use Types [...] Hannah Martinez APRN [address] [place] [address] 02/04/2025 9:00 AM EDT Office Visit [facility] NEUROLOGY 210 [facility] 204 [place] [address] Britany Braxton MD 210 [facility] 204 [place] [address] documented as of this encounter Visit Diagnoses Not on filedocumented in this encounter Care Teams Washer Assembler Relationship Specialty Start Date End Date Cathy Blancas APRN [address] [place] [address] PCP - General Family Medicine 09/20/22 02/12/23 documented as of this encounter
--- OUTSIDE RECORDS SUMMARY | 2024-09-29 20:59 | XMS_ITS | Encounter Summary ---
[facility] Address [address] [place] [address] Care Team Providers Care Windows Infrastructure Engineer Name Role Phone Robinson Manley MD Primary Care Provider +1- [phone] Reason for Visit * Reason Comments Back Pain LLE numbness and wea kness * Consultation (Routine) - Authorized Specialty Diagnoses / Procedures Referred By Contac t Referred To Contact Neurosurgery Diagnoses Spinal stenosis, lumbar region without neurogenic claudication Anesthesia of skin Paresthesia of skin Kelle Small, SENIOR SUPPLY CHAIN ANALYST [address] [place] [address] Phone: tel: fax: [facility] NEUROS[facility]GERY [facility] [address] [address] Phone: tel: fax: Referral ID Status Reason Start Date Expiration Date V isits Requested Visits Authorized [id number] Authorized 11/13/2023 11/12/2024 2 2 Encounter Details Date Type Department Care Team (Late st Contact Info) Description 11/28/2023 10:20 AM EST Office Visit [facility] NEUROSURGERY [address] [address] Hank Guzman MD [address] [place] [address] Spinal stenosis, lumbar region, with neurogenic claudication [...] Allergies: Allergies Allergen Reactions Triple Antibiotic W/Hydrocortisone [Rrpfvym-Hcyjbzqm-Xxromlhoq-Hc] Rash Codeine Other (See Comments) Knots on [...] [facility] CARDIOLOGY [address] [place] [phone] Hannah Martinez APRN [address] [place] [address] 02/04/2025 9:00 AM EDT Office Visit [facility] NEUROLOGY 210 [facility] [address] [place] [address] Britany Braxton MD [address] [facility] [address] [place] [address] documented as of this encounter Visit Diagnoses Diagnosis Spinal stenosis, lumbar region, with neurogenic claudication- Primary documented in this encounter Care Teams Windows Infrastructure Engineer Relationship Specialty Start Date End Date Robinson Manley MD [address] [place] [address] PCP - General Family Medicine 07/09/23 documented as of this encounter
--- OUTSIDE RECORDS SUMMARY | 2024-09-29 20:59 | XMS_ITS | Encounter Summary ---
[facility] [address] [place] [address] Care Team Providers Care Proposal Consultant Name Role Phone Robinson Manley MD Primary Care Provider +1- [phone] Reason for Visit * Diagnostic Imaging (Routine) - Closed Specialty Diagnoses / Procedures Referred By Contac t Referred To Contact Diagnoses Abnormal echocardiogram Nonrheumatic mitral valve regurgitation Procedures Adult Transthoracic Echo Complete W/ Cont if Necessary Per Protocol Carleen Dave APRN [address] [place] [address] Phone: tel: fax: [facility] CARDIOLOG[facility] [address] [place] [address] Phone: tel: fax: Referral ID Status Reason Start Date Expiration Date Visits Re quested Visits Authorized [id number] Closed 07/09/2023 07/08/2024 1 1 Encounter Details Date Type Department Care Team (Latest Contact Info) Description 12/10/2023 2:30 PM EST Ancillary Procedure [facility] C[facility] [address] [place] [address] [place] [address] Abnormal echocardiogram; Nonrheumatic mitral valve regurgitation [...] 8:30 AM EST Office Visit [facility] CARDIOLOGY [address] [place] [phone] Hannah Martinez APRN [address] [place] [address] 02/04/2025 9:00 AM EDT Office Visit [facility] NEUROLOGY [address] [facility] [address] [place] [address] Britany Braxton MD [address] [facility] [address] [place] [address] documented as of this encounter [...] motion is normal. us Carleen Sakina Tenzin MINING TEACHER CV ECHO ORDERABLES Final Result documented in this encounter Visit Diagnoses Diagnosis Abnormal echocardiogram Nonspecific (abnormal) findings on radiological and other examination of other intrathoracic organs Nonrheumatic mitral valve regurgitation documented in this encounter Care Teams Proposal Consultant Relationship Specialty Start Date End Date Robinson Manley MD [address] [facility] [address] PCP - General Family Medicine 07/09/23 documented as of this encounter
--- OUTSIDE RECORDS SUMMARY | 2024-09-29 20:59 | XMS_ITS | Encounter Summary ---
[facility] Address [address] [place] [address] Care Team Providers Care Squeezer Operator Name Role Phone Robinson Manley MD Primary Care Provider +1- [phone] Encounter Details Date Type Department Care Team (Late st Contact Info) Description 11/28/2023 Telephone [facility] CARDIOLOGY [address] [place] [address] Chen Wyatt MD [address] [place] [address] Social History Tobacco Use Types [...] [place] Who/where is the surgery being done: [facility] Neurosurgery Hank Guzman L3 and L4 laminectomy [...] [facility] C[facility]IOLOG[facility] [address] [place] [phone] Hannah Martinez APRN [address] [place] [address] 02/04/2025 9:00 AM EDT Office Visit [facility] NEUROLOGY [address] [facility] 204 [place] [address] Britany Braxton MD [address] [facility] [address] [place] [address] documented as of this encounter Visit Diagnoses Not on filedocumented in this encounter Care Teams Squeezer Operator Relationship Specialty Start Date End Date Robinson Manley MD [address] [place] [address] PCP - General Family Medicine 07/09/23 documented as of this encounter
--- OUTSIDE RECORDS SUMMARY | 2024-09-29 20:59 | XMS_ITS | Encounter Summary ---
Author [facility] [address] [place] [address] Care Team Providers Care Equity Analyst Name Role Phone Robinson Manley MD Primary Care Provider +1- [phone] Reason for Visit * Reason Comments Follow-up Hypertension Encounter Details Date Type Department Care Team (Late st Contact Info) Description 12/17/2023 8:30 AM EST Office Visit [facility] CARDIOLOGY [address] [place] [address] Naif Martinez, RADIO COMMUNICATIONS MECHANICIAN [address] [place] [address] Preoperative clearance (Primary Dx); Longstanding persistent atrial [...] in this encounter Progress Notes * Naif Martinez APRN - 12/17/2023 9:29 AM ESTAssociated Problem(s): [...] [x] Allergies Allergen Reactions Triple Antibiotic W/Hydrocortisone [Rvhewxk-Iyylmcjf-Fazuhfjqa-Hc] Rash Codeine Other (See Comments) Knots on [...] Description 12/15/2024 8:30 AM EST Office Visit [facility] CARDIOLOGY [address] [place] [phone] Naif Martinez APRN [address] [place] [address] 02/04/2025 9:00 AM EDT Office Visit [facility] NEUR[facility] 210 [facility] [address] [place] [address] Britany Braxton MD 210 [facility] [address] [place] [address] documented as of this encounter [...] 12/10/2023-LVEF 59%. Moderate mitral valve regurgitation.Normal [facility] 11/17/18- Non-critical coronary stenosis. (25-50% distal LAD stenosis) Reports Denies Chest Pain [] [x] Shortness of Air [] [x] Palpitations [] [x] Edema [] [x] Dizziness [] [x] Syncope [] [x] Allergies Allergen Reactions Triple Antibiotic W/Hydrocortisone [Ejtqzby-Hkfhyrub-Qdqrxrxrk-Hc] Rash Codeine Other (See Comments) Knots on [...] (73 ) Wt 96.6 kg (213 lb) EnQ345% BMI 28.10 kg/m?? Estimated body mass index [...] fibrillation documented in this encounter Care Teams Equity Analyst Relationship Specialty Start Date End Date Robinson Manley MD [address] [place] [address] PCP - General Family Medicine 07/09/23 documented as of this encounter
[2024-09-30 04:00] VITALS: BP 136/76; PULSE 52; RESP 18; TEMP 36.4; O2SAT 98; BMI 27.0
--- NOTE | 2024-09-30 04:26 | PC.NURSE ---
Patient is alert and oriented x4. He expressed feeling much better this shift. Patient was observed to have eyes closed, respirations even and unlabored on room air, and no apparent distress throughout the majority of the night. Patient has been self-turning in bed. He reported having to ambulate to the bathroom frequently this shift (especially during the previous shift) to have many loose bowel movements and occasional voids. He has been tolerating his liquid diet well and has been adequately consuming fluids. Normal saline infusion was discontinued during the previous shift. He was given IV famotidine per JAN. Patient has not had any complaints of nausea/vomiting nor any pain this shift. Upon auscultation, patient's lung sounds were clear, S1/S2 heart sounds could be heard with an irregular rhythm (history of afib), and bowel sounds were very active. At this time, the patient is resting in bed with no further complaints. No acute changes noted thus far. Call light within reach. Home medications are in room.
--- NOTE | 2024-09-30 05:57 | PC.NURSE ---
Lab informed me at this time that the patient does not want [his] blood drawn right now (ordered for 06:00). They will attempt blood draws again after breakfast time per patient's request.
--- NOTE | 2024-09-30 07:37 | EXP.SURG.PN ---
Subjective Patient reports: feels better and bowel movement Exam Data for Last 24 hours Vital signs and Labs for Last 24 Hours: Temp Pulse Resp BP Pulse Ox O2 Del Method 97.6 F 52 L 18 136/76 98 Room Air 09/30/24 04:00 09/30/24 04:00 09/30/24 04:00 09/30/24 04:00 09/30/24 04:00 09/30/24 06:35 I & O for Last 24 hours: Intake & Output 09/27/24 09/28/24 09/29/24 09/30/24 11:59 11:59 11:59 11:59 Intake Total 1223 / 1223 2466 / 2466 Output Total 0 / 0 0 / 0 Balance 1223 / 1223 2466 / 2466 Weight 206 lb 1 oz 204 lb 1.6 oz Constitutional Constitutional: no acute distress *Routine Respiratory Exam Respiratory: Absent respiratory distress *Routine Cardiovascular Exam Cardiovascular: Absent tachycardia *Routine Abdominal Exam Abdominal: Present soft Progress Note: A&P Assessment and plan (1) Partial obstruction of small intestine: Status: Resolved Assessment and plan: No evidence of complete obstruction per small bowel follow-through yesterday. The patient is having multiple bowel movements. Advance diet as tolerated (2) Gastric lesion: Status: Acute Assessment and plan: During the patient's recent hospitalization plans were being made for outpatient evaluation/esophagogastroduodenoscopy to be performed by Dr. Nathaniel Terrazas. Continue with plan for outpatient esophagogastroduodenoscopy in the near future by Dr. Terrazas. (3) Intractable nausea and vomiting: Status: Resolved
[2024-09-30 07:54] VITALS: BP 153/84; PULSE 65; RESP 18; TEMP 36.5; O2SAT 98
[2024-09-30] MEDS: dilTIAZem ER 240MG CAPSULE 240 MG PO (08:14)
[2024-09-30] MEDS: SODIUM CHLORIDE 0.9% 10ML VIAL 8 ML IV (08:15)
[2024-09-30] MEDS: FAMOTIDINE 20MG/2ML VIAL 20 MG IV (08:15)
--- NOTE | 2024-09-30 09:49 | EXP.DC.SUM ---
General Admission date:: 09/29/24 Discharge date: 09/30/24 HPI HPI HPI: This is a 79-year-old gentleman seen in consultation after presenting to the emergency department with increasing abdominal pain and nausea/vomiting (please see HPI forwarded from admission H&P below). He currently feels much better . He states that he continues to pass flatus and had a bowel movement yesterday. The patient also states that he does not want surgical intervention for small bowel obstruction and he does not want surgical intervention for possible gastric lesion. He is interested in possible esophagogastroduodenoscopy in the near future. Patient is a 79-year-old male with history of chronic atrial fibrillation on Xarelto, hypertension, hyperlipidemia, GERD. He has a prior history of appendectomy and cholecystectomy. He initially had symptoms of loose watery stools beginning on 09/19/2024. He had taken some Imodium 2 days ago. He felt well in the morning of 09/23/2024 but then developed symptoms of generalized abdominal pain, nausea, vomiting, and decreased output of stool. He has had minimal flatus. Described abdominal distention. Evaluation in the emergency department included CT scan which was concerning for partial bowel obstruction. CT scan revealed, incidentally noted gastric polyp or pedunculated mass at the antrum of the stomach measuring 16 mm diameter by at least 19 mm in length. Advise gastroenterology consultation. Generous gaseous and fluid distention of the jejunum. May indicate partial small bowel obstruction. No free fluid or free gas. Most likely infectious or inflammatory in origin... He was admitted for inpatient management. Surgical consultation was ordered this morning. Patient states he feels essentially normal with resolution of symptoms at this time. No acute distress. No abdominal pain. No nausea. He has not required nasogastric tube. Patient states that he has never had a prior colonoscopy and does not want to do one. Hospital Course Hospital Course Hospital Course: Mr. Terrell is a 79-year-old male with nausea vomiting and diarrhea. Recent admission with E. coli and partial small bowel obstruction. Presentation with similar symptoms. Workup in the ER concerning for acute kidney injury and partial bowel obstruction. Discussed case with ER physician, request admission for fluid resuscitation, treatment of TUNDE, medical management of bowel obstruction. I agreed to admit for further management. Patient did well during admission. Upper GI with small bowel follow-through obtained showing no marco obstruction or gastric outlet obstruction. Tolerated advancement of diet with resolution of nausea and vomiting. Still having loose stools but consistent with his E. coli infection. Continue conservative management. Stable to discharge home with close follow-up with surgery as an outpatient and GI for EGD to evaluate stomach lesion. Problems addressed as follows: Partial SBO - CT reviewed personally, has gaseous distention of small bowel, no clear transition point. Concern for partial obstruction. Diagnosis with E. coli at last admission. Surgery consulted. Upper GI with small bowel follow-through obtained. Showed no marco obstruction. Contrast moved all the way to colon. Patient began having bowel movements. No further nausea or vomiting. White count remained normal during admission. Stable to discharge home as he is tolerating p.o. intake. Resume regular diet. Left follow-up with GI and surgery as an outpatient. Acute kidney injury - Slight elevation in kidney function with BUN 20, creatinine 1.5 on admission, improved to baseline by discharge. Gastric polyp/lesion GERD -Treated with famotidine IV twice daily during admission. Resume omeprazole at discharge. CT personally reviewed, shows almost 2 cm lesion in his stomach concerning for polyp. Scheduled follow-up with GI as an outpatient for further evaluation including EGD for more definitive diagnosis of stomach lesion. Lesion concerning for polyp versus gastric cancer. A-fib Chronic anticoagulation Hyperlipidemia Hypertension Mitral valve regurgitation -Follows with cardiology in [place]. On Xarelto 20 daily and, diltiazem 240 mg extended daily for rate/Blood pressure control, and pitavastatin 4 mg daily for cholesterol. Rate controlled at this time. Continue oral diltiazem. Held diltiazem on admission. Resume at discharge. Gout: Resume allopurinol and probenecid at discharge. Exam Data for Last 24 hours Vital signs and Labs for Last 24 Hours: Temp Pulse Resp BP Pulse Ox O2 Del Method 97.7 F 65 18 153/84 H 98 Room Air 09/30/24 07:54 09/30/24 07:54 09/30/24 07:54 09/30/24 07:54 09/30/24 07:54 09/30/24 07:54 I & O for Last 24 hours: Intake & Output 09/27/24 09/28/24 09/29/24 09/30/24 23:59 23:59 23:59 23:59 Intake Total 3389 / 3689 900 / 900 Output Total 0 / 0 0 / 0 0 / 0 Balance 0 / 1223 3389 / 3689 900 / 900 Weight 93.485 kg 93.468 kg 92.578 kg Constitutional Constitutional: no acute distress, average body habitus and chronically ill appearing *Routine HEENT Exam Head: Present normocephalic Eye: Present EOMI and PERRL ENT: Present mucous membranes moist *Routine Neck Exam Neck: Present supple; Absent lymphadenopathy *Routine Respiratory Exam Respiratory: Present CTA bilaterally *Routine Cardiovascular Exam Cardiovascular: Present RRR *Routine Abdominal Exam Abdominal: Present soft and normoactive bowel sounds; Absent tenderness *Routine Rectal Exam Patient deferred: visual exam *Routine Exam Patient deferred: penile exam *Routine Extremities Exam Extremities: Absent cyanosis, clubbing or edema *Routine Skin Exam Skin: Present warm; Absent rash *Routine Neurological Exam Neurological: Present alert, oriented X3 and moving all extremities; Absent altered mental status DS: Diagnosis Discharge Diagnosis (1) Partial obstruction of small intestine: Status: Resolved Code(s): K56.600 - Partial intestinal obstruction, unspecified as to cause (2) Gastric lesion: Status: Acute Code(s): K31.9 - Disease of stomach and duodenum, unspecified (3) Intractable nausea and vomiting: Status: Resolved Code(s): R11.2 - Nausea with vomiting, unspecified Meds Home Medications and Allergies Home Medications ?Medication ?Instructions ?Recorded ?Confirmed ?Type rivaroxaban 20 mg tablet (Xarelto) 20 mg PO DAILY 01/29/23 09/29/24 History probenecid 500 mg tablet 250 mg PO DAILY 09/26/23 09/29/24 History sour stoddard extract 1,000 mg 1,000 mg PO DAILY 11/06/23 09/29/24 History capsule (Tart Stoddard Extract) diltiazem HCl 240 mg 240 mg PO DAILY #90 caps 04/10/24 09/29/24 Rx capsule,extended release 24 hr omeprazole 20 mg capsule,delayed 20 mg PO DAILY #90 caps 06/15/24 09/29/24 Rx release pitavastatin calcium 4 mg tablet 1 mg PO HS 09/24/24 09/29/24 History allopurinol 100 mg tablet 100 mg PO DAILY 09/28/24 09/29/24 History New Prescriptions to Start Prescriptions: Allergies Allergy/AdvReac Type Severity Reaction Status Date / Time codeine Allergy Rash Verified 09/23/24 18:41 Discharge Plan Disposition Patient Disposition: Home, Self-Care Discharge Order Discharge Orders: Discharge Order (Routine); Ordered 09/30/24 Ordered By: Yemi Campos Follow up Plan Follow up with: Corinne Griffith APRN [Primary Care Provider] - 10/12/24 9:30 am (with dr houston ) Bobby Hassan MD [Staff Physician] - 10/06/24 1:15 pm Nathaniel Terrazas II, MD [Staff Physician] - 10/07/24 9:15 am (with azeb ) Prescriptions/Medication Reconciliation: Continued Xarelto 20 mg tablet 20 mg PO DAILY Rx Instructions: must administer with evening meal probenecid 500 mg tablet 250 mg PO DAILY Rx Instructions: PATIENT STATES HE TAKES 1/2 TABLET ONCE DAILY Tart Stoddard Extract 1,000 mg capsule 1,000 mg PO DAILY omeprazole 20 mg capsule,delayed release(DR/EC) 20 mg PO DAILY Qty: 90 2RF diltiazem HCl 240 mg capsule,extended release 24hr 240 mg PO DAILY Qty: 90 2RF allopurinol 100 mg tablet 100 mg PO DAILY Rx Instructions: TAKE 1 TABLET BY MOUTH EVERY DAY pitavastatin calcium 4 mg tablet 1 mg PO HS Patient Comments: TAKE 1/4 OF A TABLET BY MOUTH EVERY NIGHT AT BEDTIME Rx Instructions: TAKE 1/4 OF A TABLET BY MOUTH EVERY NIGHT AT BEDTIME Problem Reconciliation Problems Reviewed?: Yes Patient Discharge Instructions ACTIVITY: Continue current activity DIET: continue same diet Patient Instructions: DI for Nausea -- Adult, DI for Vomiting -- Adult Print Language: Georgian Providers Primary Care Provider: Corinne Griffith Admit Provider: Jarad Jimenez Attending Provider: Jarad Jimenez
--- NOTE | 2024-10-01 10:22 | SW/DCPLANNER ---
talked with patient on the phone. Patient stated he is doing well and that he was able to get all his medicine filled and knows about his up coming DR visits. Lee Ann Coffey
== END 2024-09-30 12:04 | disposition home or self-care (01) | DRG 389 ==
LOC: ER 20:41 → 2ND 20:51
PROVIDERS: Nurse Practitioner Family; Admitting Provider Student in an Organized Health Care Education/Training Program; Emergency Provider Emergency Medicine; PCP Nurse Practitioner Family; Visit Provider Student in an Organized Health Care Education/Training Program
DX: K56.600 Partial intestinal obstruction, unspecified as to cause (principal); N17.9 Acute kidney failure, unspecified; K31.9 Disease of stomach and duodenum, unspecified; K52.9 Noninfective gastroenteritis and colitis, unspecified; R11.2 Nausea with vomiting, unspecified; I48.0 Paroxysmal atrial fibrillation; K21.9 Gastro-esophageal reflux disease without esophagitis; Z79.01 Long term (current) use of anticoagulants; Z79.899 Other long term (current) drug therapy; K31.7 Polyp of stomach and duodenum
CPT/HCPCS: 36415; 74177; 74250; 80053; 82803; 83605; 83690; 83735; 84484; 85025; 93005; 99285; J1171; J1885; J2270; J2405; J2550; J7030; Q9963; Q9967; S0028

== ENCOUNTER 2024-12-03 10:55 | Day surgery (SDC) | payer MEDICARE, SELFPAY ==
[2024-11-06 14:39] VITALS: BMI 27.9
[2024-12-01 10:52] VITALS: BMI 27.9
[2024-12-03 11:25] VITALS: BP 177/100; PULSE 100; RESP 18; TEMP 36.3; O2SAT 99
[2024-12-03] MEDS: LACTATED RINGERS 1000ML 1,000 ML 25 ML IV (11:35)
--- NOTE | 2024-12-03 11:49 | P.PNANES_ITS ---
[facility] Disclaimer: The information contained in this section may have been updated after the patient was seen, as this information can be updated by other users. Medical History Hyperglycemia Numbness and tingling of left leg Lumbar spinal stenosis Chronic low back pain Brain bleed Seizure Degenerative disc disease, lumbar Lumbar radiculopathy Ligamentum flavum hypertrophy Hyperlipidemia GERD (gastroesophageal reflux disease) Afib Gout Surgical History History of lumbar surgery Previous back surgery H/O shoulder surgery History of cholecystectomy History of appendectomy Family History Father Stroke Social History Smoking Status: Former smoker years smoked: 12 alcohol intake: current alcohol intake frequency: a few times a month substance use type: denies use current occupational status: retired Travel in the last 8 weeks: None household members: none housing: house caffeine: No Have you lived/traveled outside US in past 30 days?: No Contact w/someone who lives/traveled outside US past 30 days?: No Exposure to someone with infectious disease in past 14 days?: No Do you have a fever (greater than 100.4 F or 38 C)?: No Have you tested positive for COVID-19: No Exposed to someone with COVID-19 in past 14 days?: No Do you have a sore throat?: No Do you have a cough?: No Do you have any weakness?: No Do you have any diarrhea?: No Are you experiencing any unusual bleeding?: No Do you have any muscle aches/pain?: No Do you have any abdominal pain?: No Are you experiencing loss of taste or smell?: No [facility] Anesthesia Checklist Patient Identification Patient Identification: Arm Band and Family Structural Data Admitted From: Home Planned Operative Procedure/s: EGD Consent for Planned Operative Procedure(s) Verified: Yes Verified Documents: Surgical Consent and History and Physical NPO Status Verified Time NPO: 00:00 Additional verifications Patient : No Anesthesia Reactions: No Hx Blood Transfusions: No Blood Transfusion Reaction: No Cephalosporin Allergy: No Previous Colonoscopy: Yes Airway Assessment Mallampati Score:: Class II C-Spine Mobility Assessed: No TMJ Mobility Assessed: No Dentition: Edentulous Neurological Assessment Level of Consciousness: Awake, Alert, Appropriate and Follows Commands Hx Seizures: Yes (Seizure X1 S/P Back surgery.) Numbness or tingling in extremities: No Anesthesia Plan Anesthesia Risk discussed: Yes ASA Class: III Anesthesia Type: MAC
--- NOTE | 2024-12-03 12:44 | P.HP_ITS ---
History of Present Illness *Admission Date: 12/03/24 *Reason for visit:: Gastric mass *History of present illness: Mr. Terrell is a 79-year-old gentleman who was recently hospitalized with possible partial small bowel obstruction with multiple distended loops of jejunum without a transition point. He also had E. coli enteritis. His CAT scan showed an incidental finding of a 16 x 19 mm gastric polyp versus polypoid pedunculated mass in the antrum. The patient is here for diagnostic upper endoscopy. The examination is deemed medically necessary for diagnostic upper endoscopy. The patient has been seen, interviewed and examined prior to the procedure by both myself and the anesthesia provider. [facility] Disclaimer: The information contained in this section may have been updated after the patient was seen, as this information can be updated by other users. Medical History Hyperglycemia Numbness and tingling of left leg Lumbar spinal stenosis Chronic low back pain Brain bleed Seizure Degenerative disc disease, lumbar Lumbar radiculopathy Ligamentum flavum hypertrophy Hyperlipidemia GERD (gastroesophageal reflux disease) Afib Gout Surgical History History of lumbar surgery Previous back surgery H/O shoulder surgery History of cholecystectomy History of appendectomy Family History Father Stroke Social History Smoking Status: Former smoker years smoked: 12 alcohol intake: current alcohol intake frequency: a few times a month substance use type: denies use current occupational status: retired Travel in the last 8 weeks: None household members: none housing: house caffeine: No Have you lived/traveled outside US in past 30 days?: No Contact w/someone who lives/traveled outside US past 30 days?: No Exposure to someone with infectious disease in past 14 days?: No Do you have a fever (greater than 100.4 F or 38 C)?: No Have you tested positive for COVID-19: No Exposed to someone with COVID-19 in past 14 days?: No Do you have a sore throat?: No Do you have a cough?: No Do you have any weakness?: No Do you have any diarrhea?: No Are you experiencing any unusual bleeding?: No Do you have any muscle aches/pain?: No Do you have any abdominal pain?: No Are you experiencing loss of taste or smell?: No Other Medical History Have you received the Flu Vaccine for this season: No Have you received the Pneumonia Vaccine: No Review of Systems Review of Systems Review of systems (narrative): Negative *Cardiovascular Comments: Negative *Gastrointestinal Comments: Negative *Genitourinary Comments: Negative *Musculoskeletal Comments: Negative *Neurologic Comments: Negative Meds Home Medications and Allergies Home Medications ?Medication ?Instructions ?Recorded ?Confirmed ?Type rivaroxaban 20 mg tablet (Xarelto) 20 mg PO DAILY 01/29/23 12/03/24 History probenecid 500 mg tablet 250 mg PO DAILY 09/26/23 12/03/24 History sour stoddard extract 1,000 mg 1,000 mg PO DAILY 11/06/23 12/03/24 History capsule (Tart Stoddard Extract) diltiazem HCl 240 mg 240 mg PO DAILY #90 caps 04/10/24 12/03/24 Rx capsule,extended release 24 hr omeprazole 20 mg capsule,delayed 20 mg PO DAILY #90 caps 06/15/24 12/03/24 Rx release pitavastatin calcium 4 mg tablet 1 mg PO HS 09/24/24 12/03/24 History allopurinol 100 mg tablet 100 mg PO DAILY 09/28/24 12/03/24 History betamethasone dipropionate 0.05 % 1 applic topical BID PRN other 10/26/24 12/03/24 History topical cream ibuprofen 100 mg tablet 200 mg PO NEEDED PRN Pain 12/03/24 12/03/24 History New Prescriptions to Start Prescriptions: Allergies Allergy/AdvReac Type Severity Reaction Status Date / Time codeine Allergy Rash Verified 10/26/24 13:15 Exam Data for Last 24 hours Vital signs and Labs for Last 24 Hours: Temp Pulse Resp BP Pulse Ox O2 Del Method 97.3 F L 100 H 18 177/100 H 99 Room Air 12/03/24 11:12/03/24 11:25 12/03/24 11:25 12/03/24 11:25 12/03/24 11:12/03/24 11:25 I & O for Last 24 hours: Intake & Output 11/30/24 12/01/24 12/02/24 12/03/24 23:59 23:59 23:59 23:59 Weight 212 lb *Routine HEENT Exam Head: Present normocephalic Eye: Present EOMI and PERRL ENT: Present mucous membranes moist *Routine Neck Exam Neck: Present supple *Routine Respiratory Exam Respiratory: Present CTA bilaterally *Routine Cardiovascular Exam Cardiovascular: Present RRR *Routine Abdominal Exam Abdominal: Present soft and normoactive bowel sounds; Absent tenderness *Routine Rectal Exam Rectal:: deferred *Routine Genitalia Exam Genitalia:: deferred *Routine Extremities Exam Extremities: Absent cyanosis, clubbing or edema *Routine Skin Exam Skin: Present warm; Absent rash *Routine Neurological Exam Neurological: Present alert and oriented X3 Assessment and Plan *Assessment and plan (1) Gastric mass: Status: Acute Category: Medical Code(s): K31.89 - Other diseases of stomach and duodenum (2) History of stomach ulcers: Status: Acute Category: Medical Code(s): Z87.11 - Personal history of peptic ulcer disease (3) E coli enteritis: Status: Acute Category: Medical Code(s): A04.4 - Other intestinal Escherichia coli infections Plan A/P: 1. Incidental gastric mass seen on CAT scan is the preprocedural diagnosis. The patient will be anesthetized/sedated using MAC sedation. The patient has been seen and examined. Cardiac and lung assessment prior to the examination is stable. Proceed with planned diagnostic upper endoscopy
[2024-12-03 12:51] VITALS: O2SAT 99
--- NOTE | 2024-12-03 12:58 | P.PCN_ITS ---
[facility] Procedure Note Date: 12/03/24 Time: 13:17 Procedure Note:: Upper Endoscopy Procedure Report: Esophagogastroduodenoscopy with submucosal epinephrine injection, snare cautery removal and Endo Clip placement Endoscopost: Nathaniel Terrazas II, MD Referring Physician: JACOB Lucas Date of Procedure: December 03, 2024 Equipment: Olympus GIF 190 standard upper endoscope Sedation: MAC sedation Indications: Mr. Terrell is a 79-year-old gentleman who was recently hospitalize d with possible small bowel obstruction. There were multiple distended loops of jejunum without a transition point and he did have E. coli enteritis. His diarrhea resolved. On CAT scan he had an incidental finding of a 16 x 19 mm gastric polyp versus polypoid pedunculated mass in the antrum of the stomach. The patient reports no abdominal pain, melena or hematochezia. He reports no family history of stomach cancer (or colon or esophageal cancer). EGD is performed for diagnostic evaluation of the gastric mass identified on CAT scan. Procedure: Prior to the procedure, a history and physical exam was performed, and patient's medications and allergies were reviewed. The risks, benefits and alternatives of the sedation and procedure were discussed with the patient. All questions were answered and informed consent was obtained. The patient was brought to the procedure room. Patient identification and proposed procedure were verified by the physician and the nurse. The patient was placed in a left lateral decubitus position and the scope was passed under direct vision. Throughout the procedure, the patient's blood pressure, pulse, and oxygen saturations were monitored continuously. The upper GI endoscopy was accomplished without difficulty. The patient tolerated the procedure well. Findings: The scope was passed directly into the upper esophagus and advanced to the third portion of the duodenum. The post bulbar duodenum and duodenal bulb were normal with normal mucosa and conniventes. Within the pyloric channel was a larger 18 to 20 mm pedunculated polyp on a short stalk that was prolapsing from prepyloric region into the bulb and was actually larger than the pyloric channel but readily prolapsed [id number] across the pylorus. The base of the stalk was injected with 2 mL of 1-10,000 epinephrine with excellent blanching effect. Next, this polyp was removed/resected using snare cautery and forced coagulation. There was still some moderate oozing of heme at the polypectomy stalk site. This was controlled with Endo Clip placement and 3 endoclips were placed across the polypectomy site and stalk with complete hemostasis. The polyp was retrieved with a Caban net in whole. The remainder of the antrum, body and fundus were normal. Upon retroflexion there was a small 2 cm hiatal hernia. The scope was then withdrawn into the esophagus. There was no evidence of reflux esophagitis or Morton's. The remainder of the esophageal mucosa was normal. Impression: 1. 18 to 20 mm prepyloric/pyloric channel polyp with short stalk status post snare removal 2. Small 2 cm hiatal hernia Plan: I will follow-up the polyp pathology. This may or may not be adenomatous in nature and more likely large hyperplastic polyp histologically.
[2024-12-03] MEDS: EPINEPHrine 0.1 MG/ML 10ML SYRINGE (CRASH CART) 0.2 MG IV (13:10)
[2024-12-03 13:20] VITALS: BP 111/62; PULSE 72; RESP 16; TEMP 36.1; O2SAT 96
[2024-12-03 13:30] VITALS: BP 115/73; PULSE 72; RESP 18; O2SAT 95
[2024-12-03 13:40] VITALS: BP 115/86; PULSE 61; RESP 18; O2SAT 96
[2024-12-03 13:50] VITALS: BP 113/72; PULSE 66; RESP 19; O2SAT 98
== END 2024-12-03 14:21 | disposition home or self-care (01) ==
PROVIDERS: PCP Family Medicine; Visit Provider Internal Medicine Gastroenterology
PROC: 0DJ08ZZ Inspection of Upper Intestinal Tract, Via Natural or Artificial Opening Endoscopic (ICD-10-PCS; CPT 43236; principal; 2024-12-03 12:30)
DX: K31.89 Other diseases of stomach and duodenum (principal); A04.4 Other intestinal Escherichia coli infections; Z87.11 Personal history of peptic ulcer disease; K31.7 Polyp of stomach and duodenum; K44.9 Diaphragmatic hernia without obstruction or gangrene
CPT/HCPCS: 43236; 43251; 88305; J0171; J7120

== ENCOUNTER 2025-01-21 10:14 | Outpatient (CLI) | payer MEDICARE, SELFPAY ==
[2025-01-21 18:07] LABS: Basophils % 0.4 % (0.1-2.0); Eosinophils # 0.1 K/mm3 (0.0-0.4); Hematocrit 48.7 % (42.0-52.0); Hemoglobin 15.8 g/dL (14.1-18.0); Lymphocytes # 1.5 K/mm3 (0.7-4.5); Lymphocytes % 15.7 % (10-50); Mean Corpuscular HGB Conc 32.4 g/dL (31.8-35.4); Mean Corpuscular Hemoglobin 28.8 pg (27.0-31.2); Mean Corpuscular Volume 88.7 fl (80-94); Mean Platelet Volume 11.4 fl (7.4-10.4); Monocytes # 0.6 K/mm3 (0.1-1.0); Monocytes % 6.1 % (1.7-9.3); Neutrophils # 7.1 K/mm3 (1.8-7.8); Neutrophils % 76.4 % (37.0-80.0); Platelet Count 191 K/mm3 (142-424); Red Blood Count 5.49 M/mm3 (4.60-6.20); Red Cell Distribution Width 14.9 % (11.5-17.5); White Blood Count 9.3 K/mm3 (4.8-10.8)
[2025-01-21 19:01] LABS: Hemoglobin A1C 5.3 % (4.0-6.0)
[2025-01-21 19:23] LABS: Alanine Aminotransferase 24 U/L (12-78); Albumin Level 4.3 g/dl (3.5-5.0); Albumin/Globulin Ratio 1.3 (1.1-1.8); Alkaline Phosphatase 142 U/L (38-126); Anion Gap 15.1 mEq/L (5-15); Aspartate Amino Transferase 29 U/L (17-59); Bilirubin,Total 1.3 mg/dl (0.2-1.3); Blood Urea Nitrogen 21 mg/dl (9-20); Calcium 9.6 mg/dl (8.4-10.2); Carbon Dioxide 21 mmol/L (22.0-30.0); Chloride 109 mmol/L (98-107); Chol/HDL Ratio 3.7 (1-3.5); Cholesterol 141 mg/dl (140-200); Estimated Glomerular Filt Rate 53 ml/min (>60); GFR (African American) 65 ML/MIN (>60); Globulin 3.2 g/dL (1.3-3.2); Glucose 108 mg/dl (74-100); HDL Cholesterol 38 mg/dl (40-60); Potassium 4.1 mmoL/L (3.5-5.1); Sodium 141 mmol/L (136-145); Total Protein,Serum 7.5 g/dl (6.3-8.2); Triglycerides 124 mg/dl (30-150); VLDL Cholesterol 25 mg/dL (0-40)
[2025-01-21 20:42] LABS: 25-OH Vitamin D, Total 20.7 ng/mL (30-100)
[2025-01-21 21:25] LABS: Direct LDL Cholesterol 80.23 mg/dL (100-129)
== END 2025-01-21 23:59 | disposition home or self-care (01) ==
LOC: LAB.DROPOF 01-22 10:03
PROVIDERS: PCP Nurse Practitioner Family; Visit Provider Nurse Practitioner Family
DX: I10 Essential (primary) hypertension (principal); E78.2 Mixed hyperlipidemia
CPT/HCPCS: 80053; 80061; 82306; 83036; 84443; 85025

== ENCOUNTER 2025-07-23 10:41 | Outpatient (CLI) | payer MEDICARE, SELFPAY ==
[2025-07-23 19:26] LABS: Hematocrit 48.7 % (42.0-52.0); Hemoglobin 15.5 g/dL (14.1-18.0); Immature Granulocytes % 0.5 %; Mean Corpuscular HGB Conc 31.8 g/dL (31.8-35.4); Mean Corpuscular Hemoglobin 28.7 pg (27.0-31.2); Mean Corpuscular Volume 90.0 fl (80-94); Nucleated Red Blood Cells % 0 %; Platelet Count 181 K/mm3 (142-424); Red Blood Count 5.41 M/mm3 (4.60-6.20); Red Cell Distribution Width-SD 48.0 fL; White Blood Count 6.3 K/mm3 (4.8-10.8)
[2025-07-23 19:46] LABS: Alanine Aminotransferase 20 U/L (12-78); Albumin Level 4.1 g/dl (3.5-5.0); Albumin/Globulin Ratio 1.3 (1.1-1.8); Alkaline Phosphatase 95 U/L (38-126); Anion Gap 13.8 mEq/L (5-15); Aspartate Amino Transferase 27 U/L (17-59); Bilirubin,Total 0.7 mg/dl (0.2-1.3); Blood Urea Nitrogen 23 mg/dl (9-20); Calcium 9.1 mg/dl (8.4-10.2); Carbon Dioxide 21 mmol/L (22.0-30.0); Chloride 109 mmol/L (98-107); Cholesterol 149 mg/dl (140-200); Creatinine,Serum 1.40 mg/dl (0.66-1.25); Estimated Glomerular Filt Rate 49 ml/min (>60); GFR (African American) 59 ML/MIN (>60); Globulin 3.2 g/dL (1.3-3.2); Glucose 145 mg/dl (74-100); HDL Cholesterol 33 mg/dl (40-60); Potassium 3.8 mmoL/L (3.5-5.1); Sodium 140 mmol/L (136-145); Total Protein,Serum 7.3 g/dl (6.3-8.2); Triglycerides 203 mg/dl (30-150)
[2025-07-23 20:03] LABS: 25-OH Vitamin D, Total 41.6 ng/mL (30-100)
[2025-07-23 20:18] LABS: Thyroid Stimulating Hormone 1.61 uIU/mL (0.465-4.68)
--- OUTSIDE RECORDS SUMMARY | 2025-07-26 10:45 | XMS_ITS | Encounter Summary ---
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
--- OUTSIDE RECORDS SUMMARY | 2025-07-26 10:45 | XMS_ITS | Encounter Summary ---
Author Organization [employer] ([place], [place], [place], [place]) Address [address] [place] [address] Care Team Providers Care Director Banking Name Role Phone Unavailable Primary Care Provider Unavailabl e Encounter Details Date Type Department Care Team (Late st Contact Info) Description 11/15/2018 Transcribed Document [facility] [place] Medicine [facility], [facility] [address] ProviderHubert MD [facility] [place], [place] [id number] Social History Tobacco Use Types Packs/Day Years [...] - Historical Provider, - 11/15/2018 5:10 PM DIRECTOR BANKING Admission History, Adult Entered On: 11/16/2018 4:32 [...] Admit : No Emergency Contact #1 : Tayalice Ledesma Emergency Contact #1 Emergency Contact #1 Relationship : POA and nephew Emergency Contact #2 : na Emergency Contact #2 Phone Number : na Emergency Contact #2 Relationship : na Chief Complaint : chest pain Information Obtained From : Patient Primary Language : Citizen Of [place] Communication Barrier : None Dennise Garcia Rn - 11/16/2018 4:29 EST Fall Risk Scales ABCs Fall Injury Risk Identification : Age, Coagulation ABC Fall Injury Risk : Moderate to high injury risk SO Hx Falls Immediate/Within 3 Months : No So Secondary Diagnosis : Yes SO Use of Ambulatory Aid : Bed rest/Nurse assist SO IV Therapy or IV Access : Yes Lizet Gait/Transferring : Normal, bedrest, immobile So Mental Status : Oriented to own ability So Fall Risk Score : 35 SO Fall Scale Risk Level : 25-45 Medium Risk [place] Fall Interventions : Adequate lighting, Assistive devices [...] Source : Chart Height Entry Format : Hodgeman Height, Feet : 6 ft(Converted to: 183 cm, 72 Inch) Height, Inches : 1 Inch(Converted to: 0 ft 1 Inch, 2.54 cm) Clinical Height : 185.42 cm Weight Source : Bed scale Weight Entry Format : Hodgeman Clinical Dosing Weight : 103.73 kg Weight, Pounds : 228.2 lb Body Surface Area (BSA) : 2.28 m2 Body Mass Index : 30.2 kg/m2 (HI) [place] Body Weight : 79 kg Dennise Garcia [...] Any Spiritual/Cultural Needs or Requests : No Jewish Preference : No scientologist Dennise Garcia Rn - 11/16/2018 4:29 EST [...]
--- OUTSIDE RECORDS SUMMARY | 2025-07-26 10:45 | XMS_ITS | Encounter Summary ---
Author Organization [employer] ([place], [place], [place], [place]) Address [address] [place] [address] Care Team Providers Care Fence Laborer Name Role Phone Unavailable Primary Care Provider Unavailabl e Encounter Details Date Type Department Care Team (Late st Contact Info) Description 11/17/2018 Transcribed Document [facility] [place] Medicine [address] [place] [address] ProviderHubert MD [facility] [place], [place] [address] Social History Tobacco Use Types Packs/Day Years [...] - Historical ProviderMD - 11/17/2018 5:00 AM VOLTAGE TESTER Chart Check - Review Order Profile Entered [...]
--- OUTSIDE RECORDS SUMMARY | 2025-07-26 10:45 | XMS_ITS | Encounter Summary ---
Author Organization [employer] ([place], [place], [place], [place]) Address [address] [place] [address] Care Team Providers Care Range Rider Name Role Phone Unavailable Primary Care Provider Unavailabl e Encounter Details Date Type Department Care Team (Late st Contact Info) Description 11/16/2018 Transcribed Document [facility] [place] Family Medicine [address] [place] [address] ProviderHubert MD [facility] [place], [place] [id number] Social History Tobacco Use Types Packs/Day Years [...] - Historical ProviderMD - 11/16/2018 5:00 AM FAMILY RESOURCE MANAGEMENT SPECIALIST Chart Check - Review Order Profile Entered [...]
--- OUTSIDE RECORDS SUMMARY | 2025-07-26 10:45 | XMS_ITS | Encounter Summary ---
Author Organization [employer] ([place], [place], [place], [place]) Address [address] [place] [address] Care Team Providers Care Performance Test Consultant Name Role Phone Unavailable Primary Care Provider Unavailabl e Encounter Details Date Type Department Care Team (Late st Contact Info) Description 11/18/2018 Transcribed Document [facility] [place] [facility] [place] [address] ProviderHubert MD [address] [place] [address] Social History Tobacco Use Types Packs/Day Years [...] - Hubert ProviderMD - 11/18/2018 12:54 PM DELIVERER OUTSIDE [address] [place] [address] Patient Copy Patient Information: Name: MARILYN CLEVELAND Current Date: 11/18/2018 12:54:25 : 1945 Patient Address: [address] [address] Patient Attending Physician: HAKEEM LI MD Primary Care Provider: ALISSA PRAJAPATI (REF), -[employer] Primary Care Provider Discharge Diagnosis: Weight on [...] Assistance with quitting is available by contacting 3-876-PYUZ-NOW. This is a free resource providing counseling, [...] Be sure to sign up for the 1,2,3 Listo patient portal, which gives you 03/06 access to your medical information ??? including these discharge instructions ??? using your computer, smartphone, or tablet. Just go to People to Remember to get started. Questions? Call . [facility] would like to thank you for allowing us to assist you with your healthcare needs. I, MARILYN CLEVELAND, (or passenger representative) have received the above patient education materials/instructions and have verbalized understanding: Patient Signature _ Date/Time Patient Clinical Informaticist Signature (if needed) Date/Time Clinician/Hospital Clinical Informaticist Signature (if needed) Date/Time documented in this encounter Plan of Treatment Not on file documented as of this encounter Visit Diagnoses Not on filedocumented in this encounter
--- OUTSIDE RECORDS SUMMARY | 2025-07-26 10:45 | XMS_ITS | Encounter Summary ---
Author Organization [employer] ([place], [place], [place], [place]) Address [address] [place] [address] Care Team Providers Care Balloon Tester Name Role Phone Unavailable Primary Care Provider Unavailabl e Encounter Details Date Type Department Care Team (Late st Contact Info) Description 11/18/2018 Transcribed Document [facility] [place] [facility] [place] [address] ProviderHubert MD [address] [place] [address] Social History Tobacco Use Types Packs/Day Years Used Date Smoking Tobacco: Never Assessed Sex and Gender Information Value Date Recorded Sex Assigned at Male 05/10/2022 4:38 PM CDT Legal Sex Male 6:25 PM CDT Gender Identity Male 05/10/2022 4:38 PM CDT Sexual Orientation Not on file documented as of this encounter Miscellaneous Notes * Cerner Conversion Note - Hubert ProviderMD - 11/18/2018 1:01 PM CLAY MODELER [address] , [place] [address] Patient Copy Patient Information: Name: MARILYN TERRELL Current Date: 11/18/2018 13:01:13 : 1945 Patient Address: [address] [address] Patient Attending Physician: HAKEEM LI MD Primary Care Provider: ALISSA PRAJAPATI (REF), -[facility] Primary Care Provider Discharge Diagnosis: Weight on Admission: 228 lb, 3 oz Weight at Discharge: 228 lb Comment: Follow-up Instructions: With: Address: When: MILY ZURITAS [address], [place] [address] Business () 9:45 AM Discharge Instructions: Diet after Discharge: [...] can cause a heart attack (myocardial infarction, [place]). Because CAD is the leading cause of [...] 05/25/2015 Document Revised: 04/04/2017 Document Reviewed: 03/01/2015 [employer] Interactive Patient Education ? 2017 [employer] Inc. Coronary Angiogram A coronary angiogram is [...] including vitamins, herbs, eye drops, creams, and hsyt-lry-xndtvir medicines. ??? Any problems you or family [...] 05/03/2004 Document Revised: 08/09/2017 Document Reviewed: 08/09/2017 [employer]go[employer] Interactive Patient Education ? 2017 [employer] Inc. Radial Site Care Introduction Refer to [...] images of the heart than standard echocardiography. DAYV is done by passing a flexible tube [...] including vitamins, herbs, eye drops, creams, and mmix-vys-kmyydgc medicines. ??? Previous problems you or members [...] 01/18/2004 Document Revised: 11/02/2014 Document Reviewed: 04/29/2014 [employer] Interactive Patient Education ? 2017 [employer] Inc. Electrical Cardioversion Electrical cardioversion is the [...] including vitamins, herbs, eye drops, creams, and ssyn-wqw-qarumen medicines. ??? Any problems you or family [...] 10/18/2003 Document Revised: 06/26/2017 Document Reviewed: 05/03/2017 [employer]ke [employer] Interactive Patient Education ? 2017 [employer] Inc. Atrial Fibrillation Atrial fibrillation is a [...] ??? Certain heart rhythm disorders, such as Tcxf-Lejsttfco-Hjwrx syndrome. Other causes include: ??? Pneumonia. ??? [...] 10/28/2006 Document Revised: 03/06/2017 Document Reviewed: 02/22/2016 [employer] Interactive Patient Education ? 2017 [employer] Technologies. Medication Leaflets: amiodarone (oral) (A mi [place] [...] may report side effects to FDA at 2-356-EHU-6487. What other drugs will affect amiodarone? Sometimes [...] can affect amiodarone. This includes prescription and jnwr-chr-rnlslxz medicines, vitamins, and herbal products. Not all [...] to ensure that the information provided by [employer]. ('Multum') is accurate, up-to-date, and complete, but no guarantee is made to that effect. Drug information contained herein may be time sensitive. [employer] information has been compiled for use by healthcare practitioners and consumers in the [place] and therefore [employer] does not warrant that uses outside of the [place] are appropriate, unless specifically indicated otherwise. [employer] drug information does not endorse drugs, diagnose patients or recommend therapy. Ep[employer] drug information is an informational resource designed [...] effective or appropriate for any given patient. [employer] does not assume any responsibility for any aspect of healthcare administered with the aid of information Z[employer] provides. The information contained herein is not intended to cover all possible uses, directions, precautions, warnings, drug interactions, allergic reactions, or adverse effects. If you have questions about the drugs you are taking, check with your doctor, nurse or pharmacist. Copyright 2289-3799 [employer]. Version: 7.01. Revision Date: 09/16/2018. rivaroxaban (GEORGE [...] may report side effects to FDA at 6-857-QXW-9734. What other drugs will affect rivaroxaban? Sometimes it is not safe to use certain medications at the same time. Some drugs can affect your blood levels of other drugs you take, which may increase side effects or make the medications less effective. Other drugs may affect rivaroxaban, including prescription and lark-ucl-rcycoib medicines, vitamins, and herbal products. Tell your [...] to ensure that the information provided by [employer]. ('Multum') is accurate, up-to-date, and complete, but no guarantee is made to that effect. Drug information contained herein may be time sensitive. [employer] information has been compiled for use by healthcare practitioners and consumers in the [place] and therefore [employer] does not warrant that uses outside of the [place] are appropriate, unless specifically indicated otherwise. [employer] System[employer] drug information does not endorse drugs, diagnose patients or recommend therapy. [employer] drug information is an informational resource designed [...] effective or appropriate for any given patient. [employer] does not assume any responsibility for any aspect of healthcare administered with the aid of information [employer] provides. The information contained herein is not intended to cover all possible uses, directions, precautions, warnings, drug interactions, allergic reactions, or adverse effects. If you have questions about the drugs you are taking, check with your doctor, nurse or pharmacist. Copyright 4359-9961 [employer]. Version: 6.01. Revision Date: 09/03/2018. CIGARETTE SMOKING: The facts are clear, cigarette smoking will shorten your life. Smoking can cause many illnesses along the way. As a healthcare provider, we recommend that you stop smoking. Assistance with quitting is available by contacting 3-197-LPXN-NOW. This is a free resource providing counseling, [...] sure to sign up for the My [employer] patient portal, which gives you 03/06 access to your medical information ??? including these discharge instructions ??? using your computer, smartphone, or tablet. Just go to [employer] to get started. Questions? Call . [facility] [place] [facility] would like to thank you for allowing us to assist you with your healthcare needs. I, MARILYN TERRELL, (or sales representative trainee) have received the above patient education materials/instructions and have verbalized understanding: Patient Signature _ Date/Time Patient Case Resolution Specialist Signature (if needed) Date/Time Clinician/Hospital Case Resolution Specialist Signature (if needed) Date/Time documented in this encounter Plan of Treatment Not on file documented as of this encounter Visit Diagnoses Not on filedocumented in this encounter
--- OUTSIDE RECORDS SUMMARY | 2025-07-26 10:45 | XMS_ITS | Encounter Summary ---
Author Organization [employer] ([place], [place], [place], [place]) Address [address] [place] [address] Care Team Providers Care Primary School Teacher Name Role Phone Unavailable Primary Care Provider Unavailabl e Encounter Details Date Type Department Care Team (Late st Contact Info) Description 11/15/2018 Transcribed Document [facility] Radiology [address] [place] [address] Luis Eduardo Belcher MD [address] [place] [address] [place] [address] Social History Tobacco Use Types Packs/Day Years [...] - 11/15/2018 7:50 PM EST Patient: MARILYN CLEVELAND Age: 73 Years Sex: Male : 1945 Chief Complaint chest pain History of Present Illness 73-year-old white gentleman history of atrial fibrillation with RVR presents to outside facility [facility] with chest pain started 2:30 AM the middle of his chest 8 / 10 only improved with IV morphine at the outside facility. No fevers or chills. No nausea vomiting. No diarrhea constipation. No dysuria hematuria. The ER at the outside facility discussed patient Dr. Drew Pickens and request the patient be transferred to [facility] by cardiology and admitted by [...] 73-year-old gentleman transferred from the hospital in [facility] to [facility] in [place] for cardiology consult. Does have substernal chest [...] PRN Xarelto, 20 mg, 1 Tab, Oral, [id number] Zofran, 4 mg, 2 mL, IV Push, [...] of 13, hemoglobin of 17, platelets 256, [place] of 22, creatinine is 1.4, blood sugar of 161. Troponin is less than 0.04. Chest x-ray negative. Diagnostic Results Radiology Results (Last 48 hours) [id number] -- 11/15/2018 17:13 CR Chest 1 Vw Portable (11/15/2018 18:26) Result: Single view chestINDICATION: Chest painFINDINGS:The lungs are clear. The cardiac silhouette is mildly enlarged..IMPRESSION: No acute abnormality documented in this encounter Plan of Treatment Not on file documented as of this encounter Visit Diagnoses Not on filedocumented in this encounter
--- OUTSIDE RECORDS SUMMARY | 2025-07-26 10:45 | XMS_ITS | Encounter Summary ---
Author Organization [employer] ([place], [place], [place], [place]) Address [address] [place] [address] Care Team Providers Care Medical Information Officer Name Role Phone Unavailable Primary Care Provider Unavailabl e Encounter Details Date Type Department Care Team (Late st Contact Info) Description 11/18/2018 Transcribed Document [facility] [place] [facility] [place] [address] ProviderHubert [place] [address] Social History Tobacco Use Types Packs/Day [...] - Historical ProviderMD - 11/18/2018 2:17 PM TENNIS DIRECTOR Patient Education Materials Follows: Coronary Artery Disease, Male Coronary artery disease (CAD) is a process in which the blood vessels of the heart (coronary arteries) become narrow or blocked. The narrowing or blockage can lead to decreased blood flow to the heart muscle (angina). Prolonged reduced blood flow can cause a heart attack (myocardial infarction, [place]). Because CAD is the leading cause of [...] 05/25/2015 Document Revised: 04/04/2017 Document Reviewed: 03/01/2015 ElseKnoa Software Interactive Patient Education ? 2017 [employer]. Emergency Medicine Electrical Cardioversion Electrical cardioversion is [...] including vitamins, herbs, eye drops, creams, and bwvf-ywp-srgfzyd medicines. ??? Any problems you or family [...] 10/18/2003 Document Revised: 06/26/2017 Document Reviewed: 05/03/2017 ElseKnoa Software Interactive Patient Education ? 2017 [employer] Inc. Atrial Fibrillation Atrial fibrillation is a [...] ??? Certain heart rhythm disorders, such as Kaat-Wyobydbql-Qezac syndrome. Other causes include: ??? Pneumonia. ??? [...] 10/28/2006 Document Revised: 03/06/2017 Document Reviewed: 02/22/2016 [employer] Interactive Patient Education ? 2017 [employer] Inc. Pulmonary Medicine Radial Site Care Introduction [...] including vitamins, herbs, eye drops, creams, and wojb-grx-dvcgsux medicines. ??? Any problems you or family [...] 08/09/2017 Elsevier Interactive Patient Education ? 2017 Elsevier Inc. Transesophageal Echocardiogram Transesophageal echocardiography (DAVY) is [...] including vitamins, herbs, eye drops, creams, and obbs-fss-vxmvntc medicines. ??? Previous problems you or members [...] 01/18/2004 Document Revised: 11/02/2014 Document Reviewed: 04/29/2014 ElseKnoa [employer] Interactive Patient Education ? 2017 [employer]. documented in this encounter Plan of Treatment Not on file documented as of this encounter Visit Diagnoses Not on filedocumented in this encounter
--- OUTSIDE RECORDS SUMMARY | 2025-07-26 10:45 | XMS_ITS | Encounter Summary ---
Author Organization [employer] ([place], [place], [place], [place]) Address [address] [place] [address] Care Team Providers Care 3D Designer Name Role Phone Unavailable Primary Care Provider Unavailabl e Encounter Details Date Type Department Care Team (Late st Contact Info) Description 11/18/2018 Transcribed Document [facility] Cardiology [address] [place] [address] Luis Eduardo Suárez MD [address] [facility] [address] [place] [address] Social History Tobacco Use Types Packs/Day Years [...] Pain (Mild 1-3) Xarelto: 20 mg, Oral, [id number] Zofran: 4 mg, IV Push, Q4H, PRN: Nausea amiodarone: 400 mg, Oral, BID aspirin: 81 mg, Oral, Daily dilTIAZem: 180 mg, Oral, Daily losartan: 25 mg, Oral, BID pantoprazole: 40 mg, Oral, Daily Objective Intake and Output 24 hour intake, 24 hour output VS/Measurements Vitals Signs (last 24 hrs) Last Charted Minimum Maximum Temp 97.9 (NOV 18 06:38) 97.9 (NOV 18:38) 98.7 (NOV 17 18:00) Apical HR 81 (NOV 17 21:20) 81 (NOV 17 21:20) 89 (NOV 17 07:53) Mon HR 83 (NOV 18 06:38) 65 (NOV 17 11:45) 83 (NOV 18 06:38) Resp Rate 16 (NOV 18:38) 16 (NOV 18:38) 20 (NOV 17 11:30) SBP 112 (NOV 18:38) 97 (NOV 17 11:30) 121 (NOV 17 15:45) DBP 80 (NOV 18:38) L 58 (NOV 17 23:00) 85 (NOV 17 15:45) MAP 91 (NOV 18:38) 76 (NOV 17 11:45) 95 (NOV 17 15:45) SpO2 97 (NOV 18 06:38) 95 (NOV 17 18:00) 99 (NOV 17 [...] of motion, Normal strength. Integumentary: Warm, Dry, [place]. Neurologic: Alert, Oriented. Psychiatric: Cooperative, Appropriate mood & affect. Results Review Telemetry NOV 18 00:33 140 110 22 / H 123 3.9 25 1.24 \ NOV 18 00:33 \ 13.9 / 8.8 222 / 42.9 \ Impression and Plan IMPRESSION: * Chest pain. - Abnormal Stress Test five months ago. [facility] 11/17/18--> non critical CAD - Echo (11-29) EF 50%, mild RV dysfunction, valves OK. - Negative troponin x2 at OSH - EKG: A fib. 99 BPM ? duration (not certain if paroxysmal or persistent)/initially Dx months ago. Refused DOAC previously - [facility] 11/17/18 ; Non-ciritical coronary stenosis * [...]
--- OUTSIDE RECORDS SUMMARY | 2025-07-26 10:45 | XMS_ITS | Encounter Summary ---
Author Organization [employer] ([place], [place], [place], [place]) Address [address] [place] [address] Care Team Providers Care Data Recovery Planner Name Role Phone Unavailable Primary Care Provider Unavailabl e Encounter Details Date Type Department Care Team (Late st Contact Info) Description 11/16/2018 Transcribed Document [facility] [place] Family Medicine [address] [place] [address] ProviderHubert MD [facility] [place] [address] Social History Tobacco Use Types [...] - Historical ProviderMD - 11/16/2018 4:00 AM BALL POINTS INSPECTOR Height and Weight, Routine Entered On: 11/16/2018 5:11 EST Performed On: 11/16/2018 4:00 EST by Tonya Carrasquillo [facility] Unit Coord Height and Weight, Routine Routine Weight Source : Bed scale Routine Weight Entry Format : [place] Routine Weight, Pounds : 230 lb Routine Weight, Ounces : 4 oz Routine Weight Calculation : 104.66 kg Height Source : Chart Height Entry Format : [place] Height, Feet : 6 ft Height, Inches : 1 Inch Clinical Height : 185.42 cm Body Surface Area (BSA), Routine : 2.29 m2 Body Mass Index (BMI), Routine : 30.44 kg/m2 Tonya Carrasquillo [facility] - 11/16/2018 5:11 EST documented in this encounter Plan of Treatment Not on file documented as of this encounter Visit Diagnoses Not on filedocumented in this encounter
--- OUTSIDE RECORDS SUMMARY | 2025-07-26 10:45 | XMS_ITS | Encounter Summary ---
Author Organization [employer] ([place], [place], [place], [place]) Address [address] [place] [address] Care Team Providers Care Furrier Designer Name Role Phone Unavailable Primary Care Provider Unavailabl e Encounter Details Date Type Department Care Team (Late st Contact Info) Description 11/17/2018 Transcribed Document [facility] [place] Family Medicine [address] [place] [address] ProviderHubert MD [facility] [place] [address] Social History Tobacco Use Types [...] - Historical ProviderMD - 11/17/2018 8:20 PM GUARD IMMIGRATION Patient: MARILYN CLEVELAND Age: 73 years Sex: [...] Rate 18 (NOV 17 18:00) 16 (NOV 17:28) 20 (NOV 17 11:30) SBP 118 (NOV [...]
--- OUTSIDE RECORDS SUMMARY | 2025-07-26 10:45 | XMS_ITS | Encounter Summary ---
Author Organization [employer] ([place], [place], [place], [place]) Address [address] [place] [address] Care Team Providers Care Clam Shucking Machine Tender Name Role Phone Unavailable Primary Care Provider Unavailabl e Encounter Details Date Type Department Care Team (Late st Contact Info) Description 11/15/2018 Transcribed Document [facility] [place] Family Medicine [address] [place] [address] ProviderHubert MD [facility] [place], [place] [address] Social History Tobacco Use Types Packs/Day Years [...] - Historical ProviderMD - 11/15/2018 5:49 PM ARMAMENT MECHANIC Consult Phone Call Documentation Entered On: 11/15/2018 18:22 EST Performed On: 11/15/2018 17:49 EST by NHAN GIORDANO Phone Call for Consults Consult Phone Call/Page Attempt : First call NHAN GIORDANO - 11/15/2018 18:22 EST documented in this encounter Plan of Treatment Not on file documented as of this encounter Visit Diagnoses Not on filedocumented in this encounter
--- OUTSIDE RECORDS SUMMARY | 2025-07-26 10:45 | XMS_ITS | Encounter Summary ---
Author Organization [employer] ([place], [place], [place], [place]) Address [address] [place] [address] Care Team Providers Care Aquatics Lifeguard Name Role Phone Unavailable Primary Care Provider Unavailabl e Encounter Details Date Type Department Care Team (Late st Contact Info) Description 11/16/2018 Transcribed Document [facility] [place] [facility] [place] [address] ProviderHubert MD [facility] [place] [address] Social History Tobacco Use Types [...] - Historical ProviderMD - 11/16/2018 12:02 PM LABEL STAMPER Patient: MARILYN CLEVELAND Age: 73 Years Sex: Male : 1945 Admission Information 73-year-old white gentleman history of atrial fibrillation with RVR presents to outside facility [facility] with chest pain started 2:30 AM the middle of his chest / 10 only improved with IV morphine at the outside facility. No fevers or chills. No nausea vomiting. No diarrhea constipation. No dysuria hematuria. The ER at the outside facility discussed patient Dr. Drew Pickens and request the patient be transferred to [facility] to be seen by cardiology and admitted by the internal medicine group. [facility] recommended several months ago but patient [...] Significant Findings Radiology Results (Last 48 hours) [id number] -- 11/15/2018 17:13 CR Chest 1 Vw [...] and follow up with PCM and outpatient health record technician. Continue oral loading amiodarone and follow up with cardiology or PCM for dose adjustment. 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 Discharge [...] mg/dL 11/16/2018 02:23 Glucose Level 127 mg/dL MT 11/16/2018 02:23 Calcium Level 8.3 mg/dL LOW 11/16/2018 02:23 Creatinine Level 1.10 mg/dL 11/16/2018 02:23 Cardiac Markers (Current Encounter/Past 24 Hours) CK MB <1.00 ng/mL 11/16/2018 02:37 CK 61 Units/Liter 11/16/2018 02:37 ProBNP 493 pg/mL MT 11/15/2018 19:52 CMP Results (Current Encounter/Past 24 [...] 97 Units/Liter 11/16/2018 02:23 ALT 92 Units/Liter MT 11/16/2018 02:23 AST 57 Units/Liter MT 11/16/2018 02:23 Blood Urea Nitrogen 22 mg/dL 11/16/2018 02:23 Glucose Level 127 mg/dL MT 11/16/2018 02:23 Albumin Level 2.9 Gram/dL LOW 11/16/2018 02:23 Bilirubin Total 1.2 mg/dL 11/16/2018 02:23 Calcium Level 8.3 mg/dL LOW 11/16/2018 02:23 Magnesium Level 2.0 mg/dL 11/16/2018 02:23 Creatinine Clearance (Current Encounter/Past 24 Hours) Creatinine Level 1.10 mg/dL 11/16/2018 02:23 Bun/Creatinine 20.0 11/16/2018 02:23 Estimated Creatinine Clearance 68.60 mL/Min 11/16/2018 02:23 Blood Products No qualifying data available. Electronically signed by Daphne Birch Conversion Personal Computer Network Engineer Cerner at 02/28/2023 5:43 PM CDT documented in this encounter Plan of Treatment Not on file documented as of this encounter Visit Diagnoses Not on filedocumented in this encounter
--- OUTSIDE RECORDS SUMMARY | 2025-07-26 10:45 | XMS_ITS | Encounter Summary ---
Author Organization [employer] ([place], [place], [place], [place]) Address [address] [place] [address] Care Team Providers Care Welder Production Line Arc Name Role Phone Unavailable Primary Care Provider Unavailabl e Encounter Details Date Type Department Care Team (Late st Contact Info) Description 11/16/2018 Transcribed Document [facility] [place] [address] [place] [address] ProviderHubert MD [facility] [place] [address] Social History Tobacco Use Types Packs/Day Years Used Date Smoking Tobacco: Never Assessed Sex and Gender Information Value Date Recorded Sex Assigned at Male 05/10/2022 4:38 PM CDT Legal Sex Male 6:25 PM CDT Gender Identity Male 05/10/2022 4:38 PM CDT Sexual Orientation Not on file documented as of this encounter Miscellaneous Notes * Cerner Conversion Note - Historical ProviderMD - 11/16/2018 8:18 PM PETROLOGIST RX Interventions Entered On: 11/16/2018 20:19 EST [...] Lyndsay Sears, Pharm.D.-Resident - 11/16/2018 20:18 EST documented in this encounter Plan of Treatment Not on file documented as of this encounter Visit Diagnoses Not on filedocumented in this encounter
--- OUTSIDE RECORDS SUMMARY | 2025-07-26 10:45 | XMS_ITS | Encounter Summary ---
Author Organization [employer] ([place], [place], [place], [place]) Address [address] [place] [address] Care Team Providers Care Proctologist Name Role Phone Unavailable Primary Care Provider Unavailabl e Encounter Details Date Type Department Care Team (Late st Contact Info) Description 11/21/2018 Transcribed Document [facility] [place] [address] [place] [address] ProviderHubert MD [facility] [place], [place] [address] Social History Tobacco Use Types Packs/Day Years Used Date Smoking Tobacco: Never Assessed Sex and Gender Information Value Date Recorded Sex Assigned at Male 05/10/2022 4:38 PM CDT Legal Sex Male 6:25 PM CDT Gender Identity Male 05/10/2022 4:38 PM CDT Sexual Orientation Not on file documented as of this encounter Miscellaneous Notes * Cerner Conversion Note - Historical ProviderMD - 11/21/2018 10:11 AM MANAGER BILINGUAL Post Visit Phone Call Entered On: 11/21/2018 [...] 11/21/2018 10:11 EST Electronically signed by Eyal [facility] Conversion Charge Poster Cerner at 02/28/2023 5:46 PM CDT documented in this encounter Plan of Treatment Not on file documented as of this encounter Visit Diagnoses Not on filedocumented in this encounter
--- OUTSIDE RECORDS SUMMARY | 2025-07-26 10:45 | XMS_ITS | Clinical Summary ---
Author Organization [facility] Address [address] [place] [address] Phone Care Team Providers Care Miter Grinder Operator Name Role Phone Unavailable Unavailable Conditions or Problems No information available. Medications No information available. Medications Administered No information available. Allergies, Adverse Reactions, Alerts No information available. Results No information available. Plan of Care No information available. Procedures No information available. Vital Signs No information available. Immunizations No information available. Advance Directives No information available.
--- OUTSIDE RECORDS SUMMARY | 2025-07-26 10:45 | XMS_ITS | Encounter Summary ---
Author Organization [employer] ([place], [place], [place], [place]) Address [address] [place] [address] Care Team Providers Care Metal Coater Operator Name Role Phone Unavailable Primary Care Provider Unavailabl e Encounter Details Date Type Department Care Team (Late st Contact Info) Description 11/15/2018 Transcribed Document [facility] [place] Medicine [address] [place] [address] ProviderHubert MD [address] [place], [place] [address] Social History Tobacco Use Types Packs/Day Years Used Date Smoking Tobacco: Never Assessed Sex and Gender Information Value Date Recorded Sex Assigned at Male 05/10/2022 4:38 PM CDT Legal Sex Male 6:25 PM CDT Gender Identity Male 05/10/2022 4:38 PM CDT Sexual Orientation Not on file documented as of this encounter Miscellaneous Notes * Cerner Conversion Note - Historical ProviderMD - 11/15/2018 6:13 PM POLICY CHANGE CLERKS SUPERVISOR Consult Phone Call Documentation Entered On: 11/15/2018 18:22 EST Performed On: 11/15/2018 18:15 EST by NHAN GIORDANO Phone Call for Consults Consult Phone Call/Page Attempt : First call Consult Reason : Called in the Stat CAK consult to Dr. Pickens on 11/15/18 at [phone] to [phone] ISISNHAN - 11/15/2018 18:21 EST Electronically signed by [facility] Conversion Science Technician Cerner at 02/28/2023 5:33 PM CDT documented in this encounter Plan of Treatment Not on file documented as of this encounter Visit Diagnoses Not on filedocumented in this encounter
--- OUTSIDE RECORDS SUMMARY | 2025-07-26 10:45 | XMS_ITS | Encounter Summary ---
Author Organization [employer] ([place], [place], [place], [place]) Address [address] [place] [address] Care Team Providers Care Tree Feller Operator Name Role Phone Unavailable Primary Care Provider Unavailabl e Encounter Details Date Type Department Care Team (Late st Contact Info) Description 11/15/2018 Transcribed Document [facility] [place] Family Medicine [facility] [place] [address] ProviderHubert MD [facility] [place] [address] Social History Tobacco Use Types [...] - Historical ProviderMD - 11/15/2018 6:33 PM ENVIRONMENTAL ENGINEERING INTERN Patient: MARILYN TERRELL Age: 73 years Sex: Male : 1945 Associated Diagnoses: None Author: MARILYN MCKEON JR, PA-C Basic Information PCP: ALISSA PRAJAPATI (REF), -[facility] Seam Stay Stitcher: Kyra Kidd Chief Complaint Chest pain History of Present Illness patient is a 73-year-old male with a PMH of abnormal stress test (refuse LHC recommended by his rewriter), PAF (refused Eliquis), HTN and HLD who presents as a transfer from [facility] with complaints of chest pain. Patient reports progressively worsening chest pain yesterday into today. He reported to [facility] ER for evaluation. In the ER he was found to be in A. fib with RVR was given diltiazem and stayed in A. fib but rate normalized. Troponin negative ??2. patient was put on amiodarone drip and transferred to [facility] for higher level of care. At this [...] At risk for sleep apnea / IMO [id number] / Confirmed, Active Problems (1) At risk [...] of motion, Normal strength. Integumentary: Warm, Dry, [place]. Neurologic: Alert, Oriented. Psychiatric: Cooperative, Appropriate mood [...] months ago. Patient refused LHC recommended by Seam Stay Stitcher. - Negative troponin x2 at OSH - [...] Will need L heart cath next wk. documented in this encounter Plan of Treatment Not on file documented as of this encounter Visit Diagnoses Not on filedocumented in this encounter
--- OUTSIDE RECORDS SUMMARY | 2025-07-26 10:45 | XMS_ITS | Encounter Summary ---
Author Organization [employer] ([place], [place], [place], [place]) Address [address] [place] [address] Care Team Providers Care Marketing Professional Name Role Phone Unavailable Primary Care Provider Unavailabl e Encounter Details Date Type Department Care Team (Late st Contact Info) Description 11/18/2018 Transcribed Document [facility] Family Medicine [address] [place] [address] ProviderHubert MD [facility] [place], [place] [address] Social History Tobacco Use Types Packs/Day Years [...] - Historical ProviderMD - 11/18/2018 1:00 PM DIRECTOR OF RECRUITING Discharge Instructions Entered On: 11/18/2018 13:01 EST [...]
--- OUTSIDE RECORDS SUMMARY | 2025-07-26 10:45 | XMS_ITS | Encounter Summary ---
Author Organization [employer] ([place], [place], [place], [place]) Address [address] [place] [address] Care Team Providers Care Tennis Court Attendant Name Role Phone Unavailable Primary Care Provider Unavailabl e Encounter Details Date Type Department Care Team (Late st Contact Info) Description 11/15/2018 Transcribed Document [facility] [place] [address] [place] [address] ProviderHubert MD [facility] [place] [address] Social History Tobacco Use Types [...] - Historical ProviderMD - 11/15/2018 6:13 PM GEOSCIENCES FACULTY MEMBER Care Management Assessment/Plan Entered On: 11/18/2018 11:22 EST Performed On: 11/18/2018 11:20 EST by EMEKA GAFFNEY RN Care Management Note Documentation Status Complete : Yes EMEKA GAFFNEY RN - 11/18/2018 11:20 EST Patient History Information Obtained from, Care Mgt : Patient, Medical Record Current Primary Care Physician : Hoang Foreman Durable Power of Command Post Craftsman Name : Yes Medical Power of Command Post Craftsman Copy to be Obtained from : Tay [...] : None EMEKA GAFFNEY RN - 11/18/2018 11:20 EST documented in this encounter Plan of Treatment Not on file documented as of this encounter Visit Diagnoses Not on filedocumented in this encounter
--- OUTSIDE RECORDS SUMMARY | 2025-07-26 10:45 | XMS_ITS | Referral Summary ---
Author Organization [employer] ([place], [place], [place], [place]) Address [address] [place] [address] Care Team Providers Care Supervisor Mold Construction Name Role Phone Unavailable Primary Care Provider [...]
--- OUTSIDE RECORDS SUMMARY | 2025-07-26 10:45 | XMS_ITS | Encounter Summary ---
Author Organization [employer] ([place], [place], [place], [place]) Address [address] [place] [address] Care Team Providers Care Life Care Planner Name Role Phone Unavailable Primary Care Provider Unavailabl e Encounter Details Date Type Department Care Team (Late st Contact Info) Description 11/17/2018 Transcribed Document [facility] [place] [address] [place] [address] ProviderHubert MD [facility] [place], [place] [address] Social History Tobacco Use Types Packs/Day Years [...] - Historical Provider, - 11/17/2018 2:00 AM NEGATIVE DEVELOPER Weight Guesser Details Entered On: 11/17/2018 5:20 EST Performed [...]
--- OUTSIDE RECORDS SUMMARY | 2025-07-26 10:45 | XMS_ITS | Encounter Summary ---
Author Organization [employer] ([place], [place], [place], [place]) Address [address] [place] [address] Care Team Providers Care Industrial Chemistry Teacher Name Role Phone Unavailable Primary Care Provider Unavailabl e Encounter Details Date Type Department Care Team (Late st Contact Info) Description 11/16/2018 Transcribed Document [facility] [place] Family Medicine [address] [place] [address] ProviderHubert MD [facility] [place], [place] [address] Social History Tobacco Use Types Packs/Day Years Used Date Smoking Tobacco: Never Assessed Sex and Gender Information Value Date Recorded Sex Assigned at Male 05/10/2022 4:38 PM CDT Legal Sex Male 6:25 PM CDT Gender Identity Male 05/10/2022 4:38 PM CDT Sexual Orientation Not on file documented as of this encounter Miscellaneous Notes * Cerner Conversion Note - Historical ProviderMD - 11/16/2018 2:[address] [facility] PT Charges Entered On: 11/16/2018 14:46 EST Performed On: 11/16/2018 14:45 EST by KIMBERLY ESPINOZA, PT [facility] PT Charges Physical Therapy Screen : 1 KIMBERLY ESPINOZA PT - 11/16/2018 14:45 EST documented in this encounter Plan of Treatment Not on file documented as of this encounter Visit Diagnoses Not on filedocumented in this encounter
--- OUTSIDE RECORDS SUMMARY | 2025-07-26 10:45 | XMS_ITS | Encounter Summary ---
Author Organization [employer] ([place], [place], [place]) Address [address] [place] [address] Care Team Providers Care Rapier Insertion Loom Fixer Name Role Phone Unavailable Primary Care Provider Unavailabl e Encounter Details Date Type Department Care Team (Late st Contact Info) Description 11/17/2018 Transcribed Document [facility] [place] Family Medicine [address] [place] [address] ProviderHubert MD [address] [place] [address] Social History Tobacco Use Types Packs/Day Years [...] - Historical Provider, - 11/17/2018 9:14 PM CERTIFIED MEDICATION TECHNICIAN Spiritual Care Short Form Entered On: 11/17/2018 21:16 EST Performed On: 11/17/2018 21:14 EST by Balke Aldana Chaplain General Information, Spiritual Care Spiritual Care Referred by : Group Worker initiated Reason for Visit : Initial Ministry Provided to : Patient, Visitor Intervention/Comment/Summary Points : Rounding visit with patient and a friend of his. Robust conversation about various topics which all led to humorous stories. 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 Hinduism Preference : No faith Blake Aldana Chaplain - 11/17/2018 21:14 EST documented in this encounter Plan of Treatment Not on file documented as of this encounter Visit Diagnoses Not on filedocumented in this encounter
--- OUTSIDE RECORDS SUMMARY | 2025-07-26 10:45 | XMS_ITS | Clinical Summary ---
Author Organization [employer] ([place], [place], [place], [place]) Address [address] [place] [address] Care Team Providers Care Bed Laster Name Role Phone Unavailable Primary Care Provider [...]
--- OUTSIDE RECORDS SUMMARY | 2025-07-26 10:45 | XMS_ITS | Encounter Summary ---
Author Organization [employer] ([place], [place], [place], [place]) Address [address] [place] [address] Care Team Providers Care 7Th Grade Teacher Name Role Phone Unavailable Primary Care Provider Unavailabl e Encounter Details Date Type Department Care Team (Late st Contact Info) Description 11/16/2018 Transcribed Document [facility] [place] [address] [place] [address] ProviderHubert MD [facility] [place] [address] Social History Tobacco Use Types [...] - Historical ProviderMD - 11/16/2018 8:25 AM OPERATIONS LIEUTENANT Patient: MARILYN [place] Age: 73 years Sex: [...] Pain (Mild 1-3) Xarelto: 20 mg, Oral, [id number] Zofran: 4 mg, IV Push, Q4H, PRN: [...] mg tab 20 mg 1 Tab, Oral, [id number] Continuous: (2) amiodarone 450 mg + Dextrose [...] At risk for sleep apnea / IMO [id number] / Confirmed, Active Problems (1) At risk [...] 06:00) 56 (NOV 16 04:45) 106 (NOV 16 01:45) Resp Rate 18 (NOV 16 06:00) 15 (NOV 16:30) 20 (NOV 15:22) SBP 120 (NOV 16 06:00) L 82 (NOV 16 05:00) H 144 (NOV 15:) DBP 83 (NOV 16 06:00) L 47 (NOV 16:30) H 91 (NOV 15:) MAP 95 (NOV 16 06:00) 58 (NOV 16:30) 108 (NOV 15:22) SpO2 98 (NOV 16 [...] of motion, Normal strength. Integumentary: Warm, Dry, [place]. Neurologic: Alert, Oriented. Psychiatric: Cooperative, Appropriate mood [...] 11/15/2018 19:52 Radiology Results (Last 48 hours) [id number] -- 11/15/2018 17:13 CR Chest 1 Vw [...]
--- OUTSIDE RECORDS SUMMARY | 2025-07-26 10:45 | XMS_ITS | Encounter Summary ---
Author Organization [employer] ([place], [place], [place], [place]) Address [address] [place] [address] Care Team Providers Care Power System Operator Name Role Phone Unavailable Primary Care Provider Unavailabl e Encounter Details Date Type Department Care Team (Late st Contact Info) Description 11/20/2018 Transcribed Document [facility] [place] [address] [place] [address] ProviderHubert MD [facility] [place], [place] [address] Social History Tobacco Use Types Packs/Day Years Used Date Smoking Tobacco: Never Assessed Sex and Gender Information Value Date Recorded Sex Assigned at Male 05/10/2022 4:38 PM CDT Legal Sex Male 6:25 PM CDT Gender Identity Male 05/10/2022 4:38 PM CDT Sexual Orientation Not on file documented as of this encounter Miscellaneous Notes * Cerner Conversion Note - Historical ProviderMD - 11/20/2018 12:19 PM VICE PRESIDENT MEDIA RELATIONS Post Visit Phone Call Entered On: 11/20/2018 12:19 EST Performed On: 11/20/2018 12:19 EST by KAYDEN MCLEAN, RN Post Visit Phone Call Post Visit Phone Call History : First call, Second call, No answer KAYDEN MCLEAN, RN - 11/20/2018 12:19 EST Electronically signed by Eyal [facility] Conversion Armhole Sewer Cerner at 02/28/2023 5:36 PM CDT documented in this encounter Plan of Treatment Not on file documented as of this encounter Visit Diagnoses Not on filedocumented in this encounter
--- OUTSIDE RECORDS SUMMARY | 2025-07-26 10:45 | XMS_ITS | Encounter Summary ---
Author Organization [employer] ([place], [place], [place], [place]) Address [address] [place] [address] Care Team Providers Care Sewer And Drain Technician Name Role Phone Unavailable Primary Care Provider Unavailabl e Encounter Details Date Type Department Care Team (Late st Contact Info) Description 11/18/2018 Transcribed Document [facility] [place] Family Medicine [address] [place] [address] ProviderHubert MD [facility] [place] [address] Social History Tobacco Use Types Packs/Day Years [...] - Historical ProviderMD - 11/18/2018 1:00 PM WEAVING PROFESSOR Nursing Discharge Summary Entered On: 11/18/2018 13:00 [...]
--- OUTSIDE RECORDS SUMMARY | 2025-07-26 10:45 | XMS_ITS | Encounter Summary ---
Author Organization [employer] ([place], [place], [place]) Address [address] [place] [address] Care Team Providers Care Opticianry Teacher Name Role Phone Unavailable Primary Care Provider Unavailabl e Encounter Details Date Type Department Care Team (Late st Contact Info) Description 11/19/2018 Transcribed Document [facility] [place] Family Medicine [address] [place] [address] ProviderHubert MD [facility] [place], [place] [address] Social History Tobacco Use Types Packs/Day Years [...] - Historical ProviderMD - 11/19/2018 3:18 PM SENIOR DATA MODELER Post Visit Phone Call Entered On: 11/19/2018 15:19 EST Performed On: 11/19/2018 15:18 EST by Lavern Birmingham Rn Post Visit Phone Call Post Visit Phone Call History : First call, Left message Lavern Birmingham Rn - 11/19/2018 15:18 EST Electronically signed by Eyal [facility] Conversion Turning Lathe Tender Cerner at 02/28/2023 5:32 PM CDT documented in this encounter Plan of Treatment Not on file documented as of this encounter Visit Diagnoses Not on filedocumented in this encounter
--- OUTSIDE RECORDS SUMMARY | 2025-07-26 10:45 | XMS_ITS | Encounter Summary ---
Author Organization [employer] ([place], [place], [place], [place]) Address [address] [place] [address] Care Team Providers Care Car Knocker Name Role Phone Unavailable Primary Care Provider Unavailabl e Encounter Details Date Type Department Care Team (Late st Contact Info) Description 11/18/2018 Transcribed Document [facility] Family Medicine [facility] [place] [address] ProviderHubert MD [address] [place] [address] Social History Tobacco Use Types Packs/Day Years Used Date Smoking Tobacco: Never Assessed Sex and Gender Information Value Date Recorded Sex Assigned at Male 05/10/2022 4:38 PM CDT Legal Sex Male 6:25 PM CDT Gender Identity Male 05/10/2022 4:38 PM CDT Sexual Orientation Not on file documented as of this encounter Miscellaneous Notes * Cerner Conversion Note - Hubert ProviderMD - 11/18/2018 2:17 PM PRODUCE SERVICE TEAM MEMBER [address] , [place] [address] Patient Copy Patient Information: Name: MARILYN TERRELL Current Date: 11/18/2018 14:17:51 : 1945 Patient Address: [address] [address] Patient Attending Physician: HAKEEM LI MD Primary Care Provider: ALISSA PRAJAPATI (REF), -[facility] Primary Care Provider Discharge Diagnosis: Weight on Admission: 228 lb, 3 oz Weight at Discharge: 228 lb Comment: Follow-up Instructions: With: Address: When: MILY ZURITAS [address], [place] [address] Business () 9:45 AM Discharge [...] can cause a heart attack (myocardial infarction, [place]). Because CAD is the leading cause of [...] 05/25/2015 Document Revised: 04/04/2017 Document Reviewed: 03/01/2015 [employer]or Interactive Patient Education ? 2017 [employer] Coronary Angiogram A coronary angiogram is [...] including vitamins, herbs, eye drops, creams, and veyi-bhr-rcuysxy medicines. ??? Any problems you or family [...] 05/03/2004 Document Revised: 08/09/2017 Document Reviewed: 08/09/2017 [employer]or Interactive Patient Education ? 2017 [employer]. Radial Site Care Introduction Refer to [...] including vitamins, herbs, eye drops, creams, and rrvi-epf-keppazk medicines. ??? Previous problems you or members [...] 01/18/2004 Document Revised: 11/02/2014 Document Reviewed: 04/29/2014 [employer]or Interactive Patient Education ? 2017 [employer]. Electrical Cardioversion Electrical cardioversion is the [...] including vitamins, herbs, eye drops, creams, and estc-qrr-xtrcmua medicines. ??? Any problems you or family [...] 10/18/2003 Document Revised: 06/26/2017 Document Reviewed: 05/03/2017 [employer]stor Interactive Patient Education ? 2017 [employer]. Atrial Fibrillation Atrial fibrillation is a [...] ??? Certain heart rhythm disorders, such as Fcqs-Dbdrnagus-Dnggn syndrome. Other causes include: ??? Pneumonia. ??? [...] 10/28/2006 Document Revised: 03/06/2017 Document Reviewed: 02/22/2016 Hydrostor Interactive Patient Education ? 2017 [employer]. Medication Leaflets: amiodarone (oral) (A mi [place] [...] products. Avoid taking an herbal supplement containing [place]'s wort. Amiodarone could make you sunburn more [...] may report side effects to FDA at 6-157-GYJ-3018. What other drugs will affect amiodarone? Sometimes [...] can affect amiodarone. This includes prescription and jtrn-ced-hnznyyy medicines, vitamins, and herbal products. Not all [...] to ensure that the information provided by Collections. ('Mult[employer]') is accurate, up-to-date, and complete, but no guarantee is made to that effect. Drug information contained herein may be time sensitive. [employer] information has been compiled for use by healthcare practitioners and consumers in the [place] and therefore [employer] does not warrant that uses outside of the [place] are appropriate, unless specifically indicated otherwise. [employer]s drug information does not endorse drugs, diagnose patients or recommend therapy. [employer] drug information is an informational resource designed [...] effective or appropriate for any given patient. [employer] does not assume any responsibility for any aspect of healthcare administered with the aid of information EventBoard provides. The information contained herein is not intended to cover all possible uses, directions, precautions, warnings, drug interactions, allergic reactions, or adverse effects. If you have questions about the drugs you are taking, check with your doctor, nurse or pharmacist. Copyright 8034-7239 Collections. Version: 7.01. Revision Date: 09/16/2018. rivaroxaban (GEORGE [...] may report side effects to FDA at 9-473-GNW-6693. What other drugs will affect rivaroxaban? Sometimes it is not safe to use certain medications at the same time. Some drugs can affect your blood levels of other drugs you take, which may increase side effects or make the medications less effective. Other drugs may affect rivaroxaban, including prescription and hbnh-ulo-acwothr medicines, vitamins, and herbal products. Tell your [...] to ensure that the information provided by Collections. ('Multum') is accurate, up-to-date, and complete, but no guarantee is made to that effect. Drug information contained herein may be time sensitive. [employer]Board information has been compiled for use by healthcare practitioners and consumers in the [place] and therefore [employer]Board does not warrant that uses outside of the [place] are appropriate, unless specifically indicated otherwise. Event[employer]'s drug information does not endorse drugs, diagnose patients or recommend therapy. [employer]s drug information is an informational resource designed [...] effective or appropriate for any given patient. [employer] does not assume any responsibility for any aspect of healthcare administered with the aid of information EventBoard provides. The information contained herein is not intended to cover all possible uses, directions, precautions, warnings, drug interactions, allergic reactions, or adverse effects. If you have questions about the drugs you are taking, check with your doctor, nurse or pharmacist. Copyright 9670-4276 Collections. Version: 6.01. Revision Date: 09/03/2018. CIGARETTE SMOKING: The facts are clear, cigarette smoking will shorten your life. Smoking can cause many illnesses along the way. As a healthcare provider, we recommend that you stop smoking. Assistance with quitting is available by contacting 6-903-QJFA-NOW. This is a free resource providing counseling, [...] sure to sign up for the [employer] patient portal, which gives you 03/06 access to your medical information ??? including these discharge instructions ??? using your computer, smartphone, or tablet. Just go to [employer] to get started. Questions? Call . [facility] would like to thank you for allowing us to assist you with your healthcare needs. Wendy, MARILYN TERRELL, (or client relations representative) have received the above patient education materials/instructions and have verbalized understanding: Patient Signature _ Date/Time Patient Acid Strength Inspector Signature (if needed) Date/Time Clinician/Hospital Acid Strength Inspector Signature (if needed) Date/Time Electronically signed by Daphne Birch Conversion Electronics Technician Apprentice Primoner at 02/28/2023 5:47 PM CDT documented in this encounter Plan of Treatment Not on file documented as of this encounter Visit Diagnoses Not on filedocumented in this encounter
--- OUTSIDE RECORDS SUMMARY | 2025-07-26 10:45 | XMS_ITS | Encounter Summary ---
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 Height and Weight, Routine Entered On: 11/17/2018 5:20 EST Performed On: 11/17/2018 4:00 EST by Mona Landry, [facility] Height and Weight, Routine Routine Weight Source : Bed scale Routine Weight Entry Format : [place] Routine Weight, Pounds : 228 lb Routine Weight Calculation : 103.64 kg Height Source : Chart Height Entry Format : [place] Height, Feet : 6 ft Height, Inches : 1 Inch Clinical Height : 185.42 cm Body Surface Area (BSA), Routine : 2.28 m2 Body Mass Index (BMI), Routine : 30.14 kg/m2 Mona Landry, Environmental Engineering Manager-Health Unit Coord - 11/17/2018 5:20 EST Electronically signed by Eyal [facility] Conversion Implementation Architect Cerner at 02/28/2023 5:33 PM CDT documented in this encounter Plan of Treatment Not on file documented as of this encounter Visit Diagnoses Not on filedocumented in this encounter
--- OUTSIDE RECORDS SUMMARY | 2025-07-26 10:45 | XMS_ITS | Clinical Summary ---
[facility] Organization [facility] Address [address] [place] [address] Care Team Providers Care Supervisor Epoxy Fabrication Name Role Phone Robinson Manley MD Primary Care Provider [phone] Allergies Active Allergy Reactions Criticality Noted Date Comments Codeine Other (See Comments) Low 11/28/2023 Knots on my head Kmoqcff-Gyylrimx-Ozn ymyxin-Hc Rash Medium 01/07/2023 Medications omeprazole (priLOSEC) 20 MG capsule Take 1 capsule by mouth Daily. Active allopurinol (ZYLOPRIM) 100 MG tablet Take 1 tablet by mouth Daily. 3 Active Livalo 4 MG tabletIndication s:Hypercholester olemia Take 1 tablet by mouth Every Night. 90 tablet 1 3 Active probenecid (BENEMID) 500 MG tablet Take 0.5 tablets by mouth Daily. 1/2 PILL QD Active TART PELLETIER PO Take 1 tablet by mouth Daily. Active sennosides-docus ate (senna-docusate sodium) 8.6-50 MG per tablet Take 1 tablet by mouth Daily. Take while using hydrocodone to prevent constipation 30 tablet 4 Active naloxone (NARCAN) 4 MG/0.1ML nasal spray Call 911. Don't prime. [place] in 1 nostril for overdose. Repeat in 2-3 minutes in other nostril if no or minimal breathing/respon siveness. 2 each 4 Active Xarelto 20 MG tabletIndication s:Atrial fibrillation, unspecified type Take 1 tablet by mouth Daily. 30 tablet 5 4 Active losartan (COZAAR) 25 MG tablet Take 1 tablet by mouth Daily. 30 tablet 11 5 Active dilTIAZem CD (CARDIZEM CD) 240 MG 24 hr capsuleIndicatio ns:Atrial fibrillation, unspecified type,Essential hypertension Take 1 capsule by mouth Daily. 30 capsule 11 5 Active Active Problems Problem Noted Date Diagnosed [...] mitral valve regurgitation 07/09/20 Assessment & Plan (12/15/2024 8:51 AM EST): Echocardiogram from 12/10/2023 showed moderate mitral valve regurgitation. Currently stable. - We will continue to monitor. Assessment & Plan (06/16/2024 8:49 AM EDT): Echocardiogram from 12/10/2023 showed moderate mitral valve regurgitation. Currently stable. - We will continue to monitor. Atrial fibrillation 01/07/2023 Assessment & Plan (03/12/2025 8:58 AM EDT): Chronic atrial fibrillation, rate controlled. He has previously been intolerant to beta-blockers due to hypotension. - Continue diltiazem and Xarelto Assessment & Plan (01/12/2025 8:45 AM EST): Chronic atrial fibrillation, rate controlled. He has previously been intolerant to beta-blockers due to hypotension. - Continue diltiazem and Xarelto Assessment & Plan (12/15/2024 8:52 AM EST): Chronic atrial fibrillation, rate controlled. He has previously been intolerant to beta-blockers due to hypotension. - Continue diltiazem and Xarelto Assessment & Plan (06/16/2024 8:51 AM EDT): [...] from PCP Coronary artery disease invo lving [place] heart without angina pectoris 01/07/2023 Assessment & Plan (03/12/2025 8:53 AM EDT): Left heart cath in 2019 showed noncritical coronary stenosis (25-50% distal LAD stenosis). Patient is currently asymptomatic. He denies chest pain or worsening shortness of breath. 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 - Continue Livalo at current dose. Assessment & Plan (06/16/2024 8:50 AM EDT): [...] . Essential hypertension 01/07/2023 Assessment & Plan (03/12/2025 8:55 AM EDT): Hypertension is stable and controlled Continue current treatment regimen. Dietary sodium restriction. Regular aerobic exercise. Blood pressure will be reassessed in 2 months. He was unable to tolerate increased dose of diltiazem. Losartan 25 mg daily was added and he is doing well with that. Blood pressure stable today. -Continue Losartan and Diltiazem at current doses. Assessment & Plan (01/12/2025 8:46 AM EST): Hypertension is stable and controlled Continue current treatment regimen. Dietary sodium restriction. Regular aerobic exercise. Blood pressure will be reassessed in 2 months. He was unable to tolerate increased dose of diltiazem. Losartan 25 mg daily was added and he is doing well with that. Blood pressure stable today. - Follow-up in 2 months to reassess. Assessment & Plan (12/15/2024 8:51 AM EST): Hypertension is uncontrolled Medication changes per orders. Dietary sodium restriction. Regular aerobic exercise. Ambulatory blood pressure monitoring. Blood pressure will be reassessedin 4 weeks. -Increase diltiazem to 300 mg once daily - Monitor blood pressure daily at home - Follow-up in 1 month to reassess Assessment & Plan (06/16/2024 8:50 AM EDT): [...] oz pur e alcohol) BEER PER [facility] Utilities Answer Date Recorded In the [...] Unsafe Housing Conditions unable to assess 01/03/2024 Disabilities Answer Date Recorded Difficulty Concentrating, Remembering or Making Decisions no 01/01/2024 Difficulty Managing Errands Independently no 01/01/2024 Education Answer Date Recorded Help with school or training? Not on file Preferred Language Faroese 01/03/2024 Sex and Gender Information Value Date Recorded Sex Assigned at Not on file Legal Sex Male 1:15 PM EDT Gender Identity Not on file Sexual Orientation Not on file Last Filed Vital Signs Vital Sign Reading Time Taken Comments Blood Pressure 142/82 03/12/2025 8:14 AM EDT Pulse 97 03/12/2025 8:14 AM EDT Temperature 36.2 C (97.1 F) 04/02/2024 9:00 AM EDT Respiratory Rate 16 01/07/2024 11:47 AM EST Oxygen Saturation 96% 03/12/2025 8:14 AM EDT Inhaled Oxygen Concentration - - Weight 96.2 kg (212 lb) 03/12/2025 8:14 AM EDT Height 182.9 cm (6') 03/12/2025 8:14 AM EDT Body Mass Index 28.75 03/12/2025 8:14 AM EDT Plan of Treatment Upcoming Encounters Date Type Department Care Team (Late st Contact Info) Description 09/15/2025 10:30 AM EST Office Visit [facility] [address] [place] [address] Chen Wyatt MD [address] [place] [address] Health Maintenance Due Date Last Done Comments LIPID PANEL 1945 TDAP/TD VACCINES (1 - Tdap) 1965 Pneumococcal Vaccine 50+ (1 of 1 - PCV) 1996 ZOSTER VACCINE (1 of 2) 1996 RSV Vaccine - Adults (1 - 1-dose 75+ series) ANNUAL WELLNESS VISIT 09/20/2022 HEPATITIS C SCREENING 09/20/2022 COVID-19 Vaccine (2 - season) 07/12/202502/2021 INFLUENZA VACCINE 08/11/2025 Medical Devices Implanted Type Area Inspector Material Disposition Device Identifier Shelf Expiration Date Model / Serial / Lot Wax Bone Hemo Aesculap 2.5gm - [id number] Implanted:Qty : 1 on 01/01/2024 by Hank Guzman MD at [facility] Implant N/A: Spine Lumbar AESC[employer]AP A B ARIAS CO [id number] / / Kt Seal Hemos Abs Floseal Matrx Fast/Prep 10ml - [id number] Implanted:Qty : 1 on 01/01/2024 by Hank Guzman MD at [facility] Implant N/A: Spine Lumbar [facility] [id number] / / Insurance [facility] MEDICARE ADVANTAGE HMO Advance Directives Documents on File Type Date Recorded Patient Health Education Director Expl anation POWER OF BUSINESS CONTINUITY PLANNER - SCAN 01/02/2024 11:29 AM POWER OF BUSINESS CONTINUITY PLANNER FO R HEALTH CARE, BHLEX, 07/07/2018 LIVING WILL - SCAN 01/02/2024 11:26 AM ANSHUL ING WILL/HEALTH CARE SURROGATE, BHLEX, 07/07/2018 POWER OF BUSINESS CONTINUITY PLANNER - SCAN 01/01/2024 10:45 AM POA 2023 [...] or is breathing): Full Support Care Teams Supervisor Epoxy Fabrication Relationship Specialty Start Date End Date Robinson Manley MD [address] [place] [address] PCP - General Family Medicine 07/09/23
--- OUTSIDE RECORDS SUMMARY | 2025-07-26 10:45 | XMS_ITS | Encounter Summary ---
Author Organization [employer] ([place], [place], [place], [place]) Address [address] [place] [address] Care Team Providers Care Piano Mechanic Name Role Phone Unavailable Primary Care Provider Unavailabl e Encounter Details Date Type Department Care Team (Late st Contact Info) Description 11/18/2018 Transcribed Document [facility] Family Medicine [address] [place] [address] ProviderHubert MD [place] [address] Social History Tobacco Use Types [...] Conversion Note - Historical ProviderMD - 11/18/2018 11:29 AM PARTS COUNTER CLERK Care Management Assessment/Plan Entered On: 11/18/2018 11:33 EST Performed On: 11/18/2018 11:29 EST by EMEKA GAFFNEY RN Care Management Note Care Management Note : Transfer from [facility] with chest pain and atrial fibrillation. consult with Cardiology. S/P DAVY. EF = 50% . S/P cardiac catheterization - medical management. Pt lives alone. Independent with ADLs. 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 Plan is home with family support Documentation Status Complete : Yes EMEKA GAFFNEY RN - 11/18/2018 11:29 EST Patient History Current Primary Care Physician : Hoang Foreman Durable Power of Ordnance Engineering Technician Name : Yes Medical Power of Ordnance Engineering Technician Copy to be Obtained from : Tay Ledesma Emergency Contact #1 : Tay Ledesma Emergency Contact #1 Emergency Contact #1 Relationship : POA and nephew Emergency Contact #2 : delfino [...] Disposition Note-CM Discharge To Care Management : Home/Residential/Halfway or Self Care -01 EMEKA GAFFNEY RN - 11/18/2018 11:29 EST documented in this encounter Plan of Treatment Not on file documented as of this encounter Visit Diagnoses Not on filedocumented in this encounter
--- OUTSIDE RECORDS SUMMARY | 2025-07-26 10:45 | XMS_ITS | Encounter Summary ---
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 Admission History, Adult Entered On: 11/15/2018 17:36 [...] Obtained From : Patient Primary Language : Guamanian Communication Barrier : None Raisa Redman Rn - 11/15/2018 [...] Scale Risk Level : 25-45 Medium Risk [place] Fall Interventions : Adequate lighting, Assistive devices [...] Source : Chart Height Entry Format : [place] Height, Feet : 6 ft(Converted to: 183 cm, 72 Inch) Height, Inches : 1 Inch(Converted to: 0 ft 1 Inch, 2.54 cm) Clinical Height : 185.42 cm Weight Source : Bed scale Weight Entry Format : [place] Clinical Dosing Weight : 103.73 kg Weight, Pounds : 228.2 lb Body Surface Area (BSA) : 2.28 m2 Body Mass Index : 30.2 kg/m2 (HI) [place] Body Weight : 79 kg Raisa Redman [...] Any Spiritual/Cultural Needs or Requests : No Denominational Preference : No adventist Raisa Redman Rn - 11/15/2018 17:25 EST [...] Raisa Redman Rn - 11/15/2018 17:25 EST Electronically signed by Daphne Birch Conversion Automatic Serging Machine Operator Cerner at 02/28/2023 5:42 PM CDT documented in this encounter Plan of Treatment Not on file documented as of this encounter Visit Diagnoses Not on filedocumented in this encounter
--- OUTSIDE RECORDS SUMMARY | 2025-07-26 10:45 | XMS_ITS | Encounter Summary ---
Author Organization [employer] ([place], [place], [place], [place]) Address [address] [place] [address] Care Team Providers Care Penology Teacher Name Role Phone Unavailable Primary Care Provider Unavailabl e Encounter Details Date Type Department Care Team (Late st Contact Info) Description 11/18/2018 Transcribed Document [facility] [place] [facility] [place] [address] ProviderHubert MD [address] [place] [address] Social History Tobacco Use Types Packs/Day [...] - Hubert ProviderMD - 11/18/2018 12:52 PM HEATER ENGINEER HELPER [address] [place] [address] Patient Copy Patient Information: Name: MARILYN CLEVELAND Current Date: 11/18/2018 12:52:47 : 1945 Patient Address: [address] [address] Patient Attending Physician: HAKEEM LI MD Primary Care Provider: ALISSA PRAJAPATI (REF), -[facility] Primary Care Provider Discharge Diagnosis: Weight [...] Assistance with quitting is available by contacting 9-013-JMSA-NOW. This is a free resource providing counseling, [...] Be sure to sign up for the [employer] patient portal, which gives you 03/06 access to your medical information ??? including these discharge instructions ??? using your computer, smartphone, or tablet. Just go to [employer] to get started. Questions? Call . [facility] would like to thank you for allowing us to assist you with your healthcare needs. I, MARILYN CLEVELAND, (or warehouse representative) have received the above patient education materials/instructions and have verbalized understanding: Patient Signature _ Date/Time Patient Engineer Operations And Maintenance Signature (if needed) Date/Time Clinician/Hospital Engineer Operations And Maintenance Signature (if needed) Date/Time documented in this encounter Plan of Treatment Not on file documented as of this encounter Visit Diagnoses Not on filedocumented in this encounter
--- OUTSIDE RECORDS SUMMARY | 2025-07-26 10:45 | XMS_ITS | Encounter Summary ---
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 RNTatiana. KIMBERLY ESPINOZA, PT - 11/16/2018 14:45 EST Electronically signed by Eyal [facility] Conversion Advertising Sales Representative Cerner at 02/28/2023 5:32 PM CDT documented in this encounter Plan of Treatment Not on file documented as of this encounter Visit Diagnoses Not on filedocumented in this encounter
--- OUTSIDE RECORDS SUMMARY | 2025-07-26 11:45 | XMS_ITS | CCD ---
Author Organization Unknown Care Team Providers Care Finance Associate Name Role Phone Non Engaged, [employer] Primary Care Provider Unav ailable Unavailable Chronic Care Management Unavaila ble Summary Purpose DataExchange Insurance Providers Payer name Policy type / Coverage type Covered green party ID Effective Begin Date Effective End Date [facility] [id number] Unknown Unknown Family History Family History data not found Medication Administered No Medication Administered data Reason For Visit No Reason For Visit data Medical Equipment No Medical Equipment data Advance Directives No Advance Directive data
== END 2025-07-23 23:59 ==
LOC: LAB.DROPOF 07-26 10:41
PROVIDERS: PCP Nurse Practitioner Family; Visit Provider Nurse Practitioner Family
DX: E55.9 Vitamin D deficiency, unspecified (principal); I10 Essential (primary) hypertension; E78.5 Hyperlipidemia, unspecified
CPT/HCPCS: 80053; 80061; 82306; 84443; 85025